=== PATIENT | male | born 1945 ===

== ENCOUNTER 2017-03-18 10:22 | Inpatient (IN) | payer MEDICARE ==
[2017-03-18 10:23] VITALS: PULSE 117; BMI 21.7
[2017-03-18] MEDS ORDERED: Sodium Chloride 0.9% 1,000 ML IV ONE (11:07)
[2017-03-18] MEDS: Albuterol-Ipratrop 3 mg / 0.5 (3 ml) UD IH SCH ×2 (11:15→11:39)
[2017-03-18] MEDS ORDERED: Albuterol-Ipratrop 3 mg / 0.5 (3 ml) UD ONE ×2 (11:23→11:32)
[2017-03-18] MEDS ORDERED: Sodium Chloride 0.9% 1,000 ML ONE (11:23)
[2017-03-18 11:45] LABS: ALBUMIN 3.5 g/dL (3.5-5.0)
--- NOTE | 2017-03-18 11:46 | C.PDOC ---
History Of Present Illness 71 y/o male with PMH of CAD, CABG, DM, HTN, PVD, anemia and atrial fibrillation presents to the ED with complaints of productive cough with white sputum x2 weeks with associated nasal congestion and SOB on exertion; symptoms worsening last night. Pt seen by PCP Juani, treated and completed zithromax, he states no improvement. Pt denies chest pain, back pain, fever, chills or any other complaints. Time Seen by Provider: 03/18/17 10:56 Chief Complaint (Nursing): Cough, Cold, Congestion History Per: Patient History/Exam Limitations: no limitations Onset/Duration Of Symptoms: Days Current Symptoms Are (Timing): Still Present Severity: Moderate Reports Recently: Treated By A Physician Recent travel outside of the [place]: No Past Medical History Reviewed: Historical Data, Nursing Documentation, Vital Signs Vital Signs: Last Vital Signs Temp 97.7 F 03/18/17 16:57 Pulse 96 H 03/18/17 16:57 Resp 20 03/18/17 16:57 BP 118/79 03/18/17 16:57 Pulse Ox 89 L 03/18/17 18:48 - Medical History PMH: Atrial Fibrillation, CAD, CHF, Diabetes (type 2), Gall Bladder Disease, HTN , Hypercholesterolemia, Hyperlipidemia, Mitral Valve Prolapse, Peripheral Edema Surgical History: CABG - [facility] Procedures DETACHMENT AT LEFT FOOT, PARTIAL 1ST RAY, OPEN APPROACH (08/29/16) DETACHMENT AT LEFT FOOT, PARTIAL 2ND RAY, OPEN APPROACH (08/29/16) DETACHMENT AT LEFT FOOT, PARTIAL 3RD RAY, OPEN APPROACH (08/29/16) DETACHMENT AT LEFT FOOT, PARTIAL 4TH RAY, OPEN APPROACH (08/29/16) DETACHMENT AT LEFT FOOT, PARTIAL 5TH RAY, OPEN APPROACH (08/29/16) DETACHMENT AT RIGHT FOOT, PARTIAL 1ST RAY, OPEN APPROACH (10/09/16) DETACHMENT AT RIGHT FOOT, PARTIAL 4TH RAY, OPEN APPROACH (10/09/16) DETACHMENT AT RIGHT FOOT, PARTIAL 5TH RAY, OPEN APPROACH (10/09/16) DILATION OF L POPL ART WITH DRUG-ELUT INTRA, PERC APPROACH (08/06/16) DILATION OF LEFT FEMORAL ARTERY, PERCUTANEOUS APPROACH (05/30/16) DILATION OF LEFT PERONEAL ARTERY, PERCUTANEOUS APPROACH (08/06/16) DILATION OF LEFT POPLITEAL ARTERY, PERCUTANEOUS APPROACH (05/30/16) DILATION OF R FEM ART USING DRUG BLLN, PERC APPROACH (08/29/16) DILATION OF R POPL ART USING DRUG BLLN, PERC APPROACH (08/29/16) EXTIRPATION OF MATTER FROM L POPL ART, PERC APPROACH (08/06/16) EXTIRPATION OF MATTER FROM R FEM ART, PERC APPROACH (08/06/16) EXTIRPATION OF MATTER FROM R POPL ART, PERC APPROACH (08/06/16) INTRODUCTION OF OTHER THERAPEUTIC SUBSTANCE INTO UP GI, ENDO (06/18/16) PLAIN RADIOGRAPHY OF AORTA, BI LE ART USING L OSM CONTRAST (08/06/16) REPAIR DUODENUM, ENDO (06/18/16) CONGREGATION OF CARDIAC RHYTHM, SINGLE (10/09/16) TRANSFUSE NONAUT RED BLOOD CELLS IN PERIPH VEIN, PERC (06/18/16) ULTRASONOGRAPHY OF RIGHT AND LEFT HEART, TRANSESOPHAGEAL (10/09/16) Family History: States: Unknown Family Hx - Social History Hx Tobacco Use: Yes (former smoker) Hx Alcohol Use: No Hx Substance Use: No - Immunization History Hx Tetanus Toxoid Vaccination: No Hx Influenza Vaccination: No Hx Pneumococcal Vaccination: No Review Of Systems Constitutional: Negative for: Fever, Chills ENT: Positive for: Nose Congestion Cardiovascular: Negative for: Chest Pain Respiratory: Positive for: Cough, Shortness of Breath, Sputum Musculoskeletal: Negative for: Back Pain Physical Exam - Physical Exam Appears: Non-toxic, No Acute Distress Skin: Warm, Dry, No Rash Head: Atraumatic, Normacephalic Eye(s): bilateral: Normal Inspection Ear(s): Bilateral: Normal Nose: Normal Oral Mucosa: Moist Throat: Normal, No Erythema Neck: Normal, Normal ROM, Supple Chest: Symmetrical Cardiovascular: Rhythm Irregular (tachycardic), No Murmur Respiratory: No Accessory Muscle Use, Rales (bases), Rhonchi (scattered), Wheezing (scattered) Gastrointestinal/Abdominal: Normal Exam, Soft, No Tenderness Extremity: No Pedal Edema, Other (bilateral toe amputations) Pulses: Left Radial: Normal, Right Radial: Normal Neurological/Psych: Oriented x3, Normal Speech, Normal Cognition ED Course And Treatment - Laboratory Results Result Diagrams: 03/18/17 12:19 03/18/17 11:29 O2 Sat by Pulse Oximetry: 89 (room air) Pulse Ox Interpretation: Abnormal - Other Rad CXR X-Ray: Viewed By Me, Read By Radiologist Interpretation: HISTORY: SOB. COMPARISON: No prior. FINDINGS: LUNGS: Diffuse increased interstitial lung markings throughout both lungs suggestive for moderate to severe venous congestion and or infiltrate. Right hilar prominence. Elevated right hemidiaphragm. Patchy increased markings at the left lung base. PLEURA: As above. CARDIOVASCULAR: Status post median sternotomy. Cardiomegaly. Calcification at the aortic knob. OSSEOUS STRUCTURES: Degenerative changes in the spine and shoulders. VISUALIZED UPPER ABDOMEN: Normal. OTHER FINDINGS: None. IMPRESSION: Diffuse increased interstitial lung markings throughout both lungs suggestive for moderate to severe venous congestion and or infiltrate. Right hilar prominence. Elevated right hemidiaphragm. Patchy increased markings at the left lung base. Progress - Interventions Interventions:: Observation, Intravenous fluid, Oxygen - Medications Administered Intravenous: Corticosteroid, Diuretic - Data Reviewed Data Reviewed: Lab, Diagnostic imaging, EKG, Old records - Patient Status Patient status: Unchanged - Continuity of Care Discussed patient case with:: Family-HIPPA compliant, Covering for PMD - Patient Plan Patient Plan: Admission, Telemetry - Notes: Notes:: Labs reviewed showing slight leukocytosis and elevated glucose, BNP and renal insufficiency. EKG shows Afib at [address]-T changes CXR shows diffuse increased interstitial lung markings throughout both lungs suggestive for moderate to severe venous congestion and or infiltrate. Right hilar prominence. Elevated right hemidiaphragm. Patchy increased markings at the left lung base. Patient showed no improvement of symptoms, remain unchanged. He reported feeling slightly better however based on presentation and diagnostic findings recommend admission. Contacted hospitalist Dr Leonard who admits for Dr Tineo to discuss case and she agrees Medical Decision Making Medical Decision Making: Plan: * EKG * CXR * labs, UA * duoneb, solumedrol * IV fluids Disposition - Disposition Disposition: HOSPITALIZED Disposition Time: 12:50 Condition: FAIR - POA Present On Arrival: None, Poor Glycemic Control - Clinical Impression Clinical Impression: CHF (congestive heart failure) - PA / ROTARY BAR OPERATOR / Resident Statement MD/DO has reviewed & agrees with the documentation as recorded. - Scribe Statement The provider has reviewed the documentation as recorded by the Antoinette Carrasco All medical record entries made by the Megaibyuly were at my direction and personally dictated by me. I have reviewed the chart and agree that the record accurately reflects my personal performance of the history, physical exam, medical decision making, and the department course for this patient. I have also personally directed, reviewed, and agree with the discharge instructions and disposition. Decision To Admit - Pt Status Changed To: Hospital Disposition Of: Inpatient - Admit Certification Admit to Inpatient:: After my assessment, the patient will require hospitalization for at least two midnights. This is because of the severity of symptoms shown, intensity of services needed, and/or the medical risk in this patient being treated as an outpatient. - InPatient: Physician Admission Certification: I certify that this patient requires 2 or more midnights of care for the following reason:: Patient with acute CHF, no improvement with treatment during ED evaluation. Patient will likely detioriate and decompensate without inpatient care. - . Bed Request Type: Telemetry Admitting Physician: Noemí Leonard Patient Diagnosis: CHF (congestive heart failure)
[2017-03-18 11:47] LABS: GFR AFRICAN-AMERICAN 48; GFR NON-AFRICAN AMERICAN 40
[2017-03-18 11:48] LABS: ALB/GLOB RATIO 0.8 (1.0-2.1); AST/SGOT 19 U/L (17-59); BLOOD UREA NITROGEN 55 mg/dL (9-20); CALCIUM 9.3 mg/dl (8.6-10.4)
[2017-03-18 12:09] LABS: ALT/SGPT < 6 U/L (21-72)
--- NOTE | 2017-03-18 12:14 | RAD ---
HISTORY: SOB COMPARISON: No prior. FINDINGS: LUNGS: Diffuse increased interstitial lung markings throughout both lungs suggestive for moderate to severe venous congestion and or infiltrate. Right hilar prominence. Elevated right hemidiaphragm. Patchy increased markings at the left lung base. PLEURA: As above. CARDIOVASCULAR: Status post median sternotomy. Cardiomegaly. Calcification at the aortic knob. OSSEOUS STRUCTURES: Degenerative changes in the spine and shoulders. VISUALIZED UPPER ABDOMEN: Normal. OTHER FINDINGS: None. IMPRESSION: Diffuse increased interstitial lung markings throughout both lungs suggestive for moderate to severe venous congestion and or infiltrate. Right hilar prominence. Elevated right hemidiaphragm. Patchy increased markings at the left lung base.
[2017-03-18 12:17] LABS: B-TYPE NATRIURETIC PEPTIDE 50700 pg/mL (0-900)
[2017-03-18 12:24] LABS: BASO # 0.1 K/uL (0.0-0.2); BASO % 0.8 % (0.0-2.0); EOS # 0.2 K/uL (0.0-0.7); EOS % 1.9 % (0.0-4.0); HEMOGLOBIN 8.3 g/dL (12.0-18.0); LYMPH % 17.9 % (20.0-40.0); MEAN CORPUSCULAR HEMOGLOBIN 26.5 pg (27.0-31.0); MEAN CORPUSCULAR HGB CONC 30.9 g/dL (33.0-37.0); MEAN PLATELET VOLUME 8.1 fL (7.2-11.7); MONO # 0.9 K/uL (0.0-0.8); MONO % 8.3 % (0.0-10.0); NEUT # 7.8 K/uL (1.8-7.0); NEUT % 71.1 % (50.0-75.0); RBC 3.13 Mil/uL (4.40-5.90); RED CELL DISTRIBUTION WIDTH 18.6 % (11.5-14.5)
[2017-03-18 12:29] LABS: MEAN CELL VOLUME 85.7 fL (80.0-94.0)
--- NOTE | 2017-03-18 17:19 | CP.PCM.HP ---
<Kenji Dawn Kenyon - Last Filed: 03/18/17 21:43> History of Present Illness - History of Present Illness History of Present Illness: 71 M w/ PMHx of CAD, CABG, AFib, DM w/ b/l toe amp, PVD, HTN, chronic anemia presents to ED complaining of SOB. SOB has been present for past few months but has worsened in the last 10 days. Associated sx include persistent cough with minimal clear phlegm. Minimal activity such as getting out of a chair make sxs worse, sitting still improve sxs. Sxs are worse at night when patient is lying flat to go to sleep. Cough interrupts his sleep at night. He denies chest pain, abd pain, N/V/D/C. Daughter advised patient to come to ED a few days ago but patient refused at that time. PMHx: CAD, AFib, DM, HTN, PVD, Chronic Anemia PSHx: CABG 2009, Right foot toes amputation 2015, Left foot toes amputation 2016 Allergies: NKA Meds: Janumet 50mg-1000mg cilostazol 100mg bid losartan 25mg once daily metoprolol 25mg once daily xarelto 20mg bid amiodarone 200mg once daily pantoprazole 40mg once daily ferrus sulfate 325mg bid metoclopramide 10mg metronidazole 500mg for diarrhea (holding) furosomide 40mg mupirocin 2% topical advair FH: Patient was not able to recall any past family hx Social: Never smoked, never drank, denies illicit drug use. Lives with daughter. Retired, former [employer] consultant. Present on Admission - Present on Admission Any Indicators Present on Admission: Yes History of DVT/PE: No History of Uncontrolled Diabetes: Yes Urinary Catheter: No Decubitus Ulcer Present: No History Surgical Site Infection Following: CABG - Mediastinitis (CABG 2006. ), Orthopedic Procedures (Bilateral toe amputation) Review of Systems - Constitutional Constitutional: Fatigue, Lethargy, Weight Gain. absent: Chills, Fever, Headache , Night Sweats - EENT Eyes: absent: As Per HPI, Blind Spots, Blurred Vision, Change in Vision, Decreased Night Vision, Diplopia, Discharge, Dry Eye, Exophthalmos, Floaters, Irritation, Itchy Eyes, Loss of Peripheral Vision, Pain, Photophobia, Requires Corrective Lenses, Sees Flashes, Spots in Vision, Tunnel Vision, Other Visual Disturbances, Loss of Vision, Other Ears: absent: As Per HPI, Decreased Hearing, Ear Discharge, Ear Pain, Tinnitus, Abnormal Hearing, Disequilibrium, Dizziness, Other Nose/Mouth/Throat: absent: As Per HPI, Epistaxis, Nasal Congestion, Nasal Discharge, Nasal Obstruction, Nasal Trauma, Nose Pain, Post Nasal Drip, Sinus Pain, Sinus Pressure, Bleeding Gums, Change in Voice, Dental Pain, Dry Mouth, Dysphagia, Halitosis, Hoarsness, Lip Swelling, Mouth Lesions, Mouth Pain, Odynophagia, Sore Throat, Throat Swelling, Tongue Swelling, Facial Pain, Neck Pain, Neck Mass, Other - Cardiovascular Cardiovascular: Dyspnea, Dyspnea on Exertion, Edema, Leg Edema, Paroxysmal Nocturnal Dyspnea. absent: Chest Pain Additional comments: Murmur 3/6 heard best at right sternal border JVD - Respiratory Respiratory: Cough, Dyspnea, Dyspnea on Exertion, Wheezing. absent: Hemoptysis - Gastrointestinal Gastrointestinal: absent: Abdominal Pain, Change in Bowel Habits, Constipation, Diarrhea, Dysphagia, Vomiting - Genitourinary Genitourinary: Dysuria. absent: Hematuria, Urinary Frequency - Reproductive: Male Additional comments: Scrotum was tender to palpation - Musculoskeletal Musculoskeletal: absent: As Per HPI, Abnormal Gait, Arthralgias, Atrophy, Back Pain, Deformity, Joint Swelling, Limited Range of Motion, Loss of Height, Muscle Cramps, Muscle Weakness, Myalgias, Neck Pain, Numbness, Radiating Pain into Limb, Stiffness, Tingling, Other - Integumentary Integumentary: Dry Skin, Swelling, Jaundice - Neurological Neurological: absent: As Per HPI, Abnormal Gait, Abnormal Hearing, Abnormal Movements, Abnormal Speech, Behavioral Changes, Burning Sensations, Confusion, Convulsions, Disequilibrium, Dizziness, Numbness, Focal Weakness, Frequent Falls , Headaches, Lack of Coordination, Loss of Vision, Memory Loss, Paresthesias, Radicular Pain, Restless Legs, Sensory Deficit, Syncope, Tingling, Tremor, Vertigo, Weakness, Other Visual Disturbances, Other - Psychiatric Psychiatric: absent: As Per HPI, Abnormal Sleep Pattern, Anhedonia, Anxiety, Auditory Hallucinations, Behavioral Changes, Change in Appetite, Change in Libido, Confusion, Depression, Difficulty Concentrating, Hallucinations, Homicidal Ideation, Hopelessness, Irritability, Memory Loss, Mood Swings, Panic Attacks, Paranoia, Suicidal Ideation, Visual Hallucinations, Tactile Hallucinations, Other - Endocrine Endocrine: Fatigue. 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 Alcohol: None Drugs: Denies Home Situation {Lives}: With Family Domestic Violence: Negative - CARDIAC Hx Cardiac Disorders: Yes (CAD, CABG, CHF (EF 30%)) Hx Atrial Fibrillation: Yes Hx Congestive Heart Failure: Yes Hx Hypercholesterolemia: Yes Hx Hypertension: Yes Hx Mitral Valve Prolapse: Yes Hx Peripheral Edema: Yes - PULMONARY Hx Respiratory Disorders: No - NEUROLOGICAL Hx Neurological Disorder: No - HEENT Hx HEENT Problems: No - RENAL Hx Chronic Kidney Disease: No - ENDOCRINE/METABOLIC Hx Diabetes Mellitus Type 2: Yes - HEMATOLOGICAL/ONCOLOGICAL Hx Blood Disorders: No Hx Anemia: Yes - INTEGUMENTARY Hx Dermatological Problems: Yes Hx Cellulitis: Yes Other/Comment: gangrene left foot - MUSCULOSKELETAL/RHEUMATOLOGICAL Hx Falls: No - GASTROINTESTINAL Hx Gall Bladder Disease: Yes - GENITOURINARY/GYNECOLOGICAL Hx Genitourinary Disorders: No Hx Urinary Tract Infection: Yes (Admitted earlier this year for UTI) - PSYCHIATRIC Hx Substance Use: No - SURGICAL HISTORY Hx Surgeries: Yes Hx Amputation: Yes (left foot toes 2017; right foot toes 2016) Hx Coronary Artery Bypass Graft: Yes (2009) - ANESTHESIA Hx Anesthesia: Yes Hx Anesthesia Reactions: No Hx Malignant Hyperthermia: No Meds Allergies/Adverse Reactions: Allergies Allergy/AdvReac Type Severity Reaction Status Date / Time No Known Allergies Allergy Verified 03/18/17 10:39 Physical Exam - Constitutional Appears: Well - Head Exam Head Exam: NORMOCEPHALIC - Eye Exam Eye Exam: EOMI, Normal appearance Pupil Exam: PERRL - ENT Exam ENT Exam: Mucous Membranes Dry - Neck Exam Additional comments: JVD - Respiratory Exam Respiratory Exam: Decreased Breath Sounds, Rhonchi, Wheezes, Respiratory Distress - Cardiovascular Exam Cardiovascular Exam: JVD, Systolic Murmur - GI/Abdominal Exam GI & Abdominal Exam: Distended, Normal Bowel Sounds - Rectal Exam Rectal Exam: Deferred - Exam Exam: Scrotal Swelling - Extremities Exam Extremities exam: Positive for: pedal edema. Negative for: pedal pulses present Additional comments: edema present up to knees b/l - Neurological Exam Neurological exam: Alert, Oriented x3 - Psychiatric Exam Psychiatric exam: Normal Affect, Normal Mood - Skin Skin Exam: Dry Results - Vital Signs Recent Vital Signs: Last Vital Signs Temp 97.7 F 03/18/17 16:57 Pulse 96 H 03/18/17 16:57 Resp 20 03/18/17 16:57 BP 118/79 03/18/17 16:57 Pulse Ox 94 L 03/18/17 16:57 - Labs Result Diagrams: 03/18/17 12:19 03/18/17 11:29 Labs: Laboratory Results - last 24 hr 03/18/17 16:48 POC Glucose (mg/dL) 252 H - EKG Data EKG Interpreted by: ER Physician - Impressions Impression: abnormal ekg Assessment & Plan - Assessment and Plan (Free Text) Assessment: SOB most likely 2/2 CHF Exacerbation b/l LE pitting edema; wheezing and rhonchi on ausc Echo from 10/2016 showed EF of 30%-35%, impaired systolic function Chest-xray showed cardiomegaly, calcification of aotric knob. BNP [id number] Lasix 40mg IVP BID BIPAP ABG ordered CMP, CBC ordered Ins and Outs Peak flow pre/post tx albuterol/ipratropium 3ml INH RQ6 Fluticasone/Salmeterol 1 puff f/u EKG and JENNIFER panel f/u cardiology consult critical care consulted Acute Kidney Injury BUN 55, Creat 1.7 f/u nephro consult Afib Afib previously diagnosed con't home med of Amiodarone 200mg PO daily con't home med of Rivaroxaban 15mg PO daily Open wound on right foot at site of amputation Podiatry consulted Dysuria f/u urinalysis f/u urine culture f/u blood culture PVD Venous duplex scan ordered con't home med of cilostazol 100 mg BID DM random glucose 310 f/u HbA1C Insulin Aspart SC ACHS Gabapentin 100 mg BID consistent carbohydrate Chronic Anemia Hgb 8.3 con't home med of ferrous sulfate 325 mg BID HTN BP in ED 126/83 con't home med of Losartan 25mg Prophylactic Measures Rivaroxaban 15mg for DVT prophylaxis pepcid 20mg for GI prophylaxis <Daniel mAbrocio - Last Filed: 03/19/17 17:41> Results - Vital Signs Recent Vital Signs: Last Vital Signs Temp 97.4 F L 03/19/17 15:35 Pulse 84 03/19/17 15:35 Resp 22 03/19/17 15:35 BP 92/59 L 03/19/17 15:35 Pulse Ox 97 03/19/17 15:35 - Labs Result Diagrams: 03/19/17 09:01 03/19/17 07:05 Labs: Laboratory Results - last 24 hr 03/18/17 03/18/17 03/18/17 19:49 19:49 19:56 WBC RBC Hgb Hct MCV MCH MCHC RDW Plt Count MPV Neut % (Auto) Lymph % (Auto) [place] % (Auto) Eos % (Auto) Baso % (Auto) Neut # Lymph # [place] # Eos # Baso # Sodium Potassium Chloride Carbon Dioxide Anion Gap BUN Creatinine Est GFR ( Amer) Est GFR (Non-Af Amer) POC Glucose (mg/dL) Random Glucose Calcium Phosphorus Magnesium Iron 36 L TIBC 285 % Saturation 14 L Transferrin 211.67 Ferritin Total Bilirubin AST ALT Alkaline Phosphatase Total Creatine Kinase CK-MB (Mass) Troponin I, Quant Total Protein Albumin Globulin Albumin/Globulin Ratio Stool Occult Blood Blood Type Antibody Screen 03/18/17 03/18/17 03/18/17 20:13 21:06 21:49 WBC RBC Hgb Hct MCV MCH MCHC RDW Plt Count MPV Neut % (Auto) Lymph % (Auto) [place] % (Auto) Eos % (Auto) Baso % (Auto) Neut # Lymph # [place] # Eos # Baso # Sodium Potassium Chloride Carbon Dioxide Anion Gap BUN Creatinine Est GFR ( Amer) Est GFR (Non-Af Amer) POC Glucose (mg/dL) 310 H Random Glucose Calcium Phosphorus Magnesium Iron TIBC % Saturation Transferrin Ferritin 48.5 Total Bilirubin AST ALT Alkaline Phosphatase Total Creatine Kinase 44 L CK-MB (Mass) 1.20 Troponin I, Quant 0.0190 Total Protein Albumin Globulin Albumin/Globulin Ratio Stool Occult Blood Blood Type Antibody Screen 03/18/17 03/19/17 03/19/17 23:50 02:21 06:41 WBC RBC Hgb Hct MCV MCH MCHC RDW Plt Count MPV Neut % (Auto) Lymph % (Auto) [place] % (Auto) Eos % (Auto) Baso % (Auto) Neut # Lymph # [place] # Eos # Baso # Sodium Potassium Chloride Carbon Dioxide Anion Gap BUN Creatinine Est GFR ( Amer) Est GFR (Non-Af Amer) POC Glucose (mg/dL) 277 H 247 H Random Glucose Calcium Phosphorus Magnesium Iron TIBC % Saturation Transferrin Ferritin Total Bilirubin AST ALT Alkaline Phosphatase Total Creatine Kinase 35 L CK-MB (Mass) 1.27 Troponin I, Quant 0.0310 Total Protein Albumin Globulin Albumin/Globulin Ratio Stool Occult Blood Blood Type Antibody Screen 03/19/17 03/19/17 03/19/17 07:05 07:05 09:01 WBC 4.5 L D 4.9 RBC 2.59 L 2.64 L Hgb 6.8 L 7.0 L Hct 21.8 L 22.1 L MCV 84.2 83.7 MCH 26.5 L 26.5 L MCHC 31.4 L 31.7 L RDW 18.5 H 18.4 H Plt Count 325 D 321 MPV 8.3 8.2 Neut % (Auto) 83.7 H Lymph % (Auto) 12.6 L [place] % (Auto) 3.6 Eos % (Auto) 0.0 Baso % (Auto) 0.1 Neut # 3.8 Lymph # 0.6 L [place] # 0.2 Eos # 0.0 Baso # 0.0 Sodium 144 Potassium 3.9 Chloride 107 Carbon Dioxide 22 Anion Gap 18 BUN 62 H Creatinine 1.7 H Est GFR ( Amer) 48 Est GFR (Non-Af Amer) 40 POC Glucose (mg/dL) Random Glucose 215 H Calcium 8.7 Phosphorus 4.8 H Magnesium 1.9 Iron TIBC % Saturation Transferrin Ferritin Total Bilirubin 1.1 AST 15 L D ALT 8 L D Alkaline Phosphatase 73 Total Creatine Kinase 33 L CK-MB (Mass) 1.05 Troponin I, Quant 0.0390 Total Protein 6.9 Albumin 3.0 L Globulin 4.0 H Albumin/Globulin Ratio 0.8 L Stool Occult Blood Blood Type Antibody Screen 03/19/17 03/19/17 03/19/17 11:07 11:59 17:18 WBC RBC Hgb Hct MCV MCH MCHC RDW Plt Count MPV Neut % (Auto) Lymph % (Auto) [place] % (Auto) Eos % (Auto) Baso % (Auto) Neut # Lymph # [place] # Eos # Baso # Sodium Potassium Chloride Carbon Dioxide Anion Gap BUN Creatinine Est GFR ( Amer) Est GFR (Non-Af Amer) POC Glucose (mg/dL) 276 H Random Glucose Calcium Phosphorus Magnesium Iron TIBC % Saturation Transferrin Ferritin Total Bilirubin AST ALT Alkaline Phosphatase Total Creatine Kinase CK-MB (Mass) Troponin I, Quant Total Protein Albumin Globulin Albumin/Globulin Ratio Stool Occult Blood Positive H Blood Type O POSITIVE Antibody Screen Negative Attending/Attestation - Attestation I have personally seen and examined this patient.: Yes I have fully participated in the care of the patient.: Yes I have reviewed all pertinent clinical information: Yes Notes (Text): 03/19/17 17:40 Patient was seen and examined at bedside with the resident I discussed the plan of care with the resident I agree with the above history and physical and assessment/plan by the resident.
[2017-03-18] MEDS: Albuterol-Ipratrop 3 mg / 0.5 (3 ml) UD INH SCH (19:52)
[2017-03-18 20:13] LABS: IRON 36 ug/dL (49-181)
[2017-03-18 20:23] LABS: TOTAL IRON BINDING CAPACITY 285 ug/dL (250-450)
[2017-03-18] MEDS: Cilostazol 100 mg Tab UD PO SCH (21:05)
[2017-03-18 22:05] LABS: CK-MB 1.2 ng/mL (0.0-3.38)
[2017-03-18] MEDS: (Novolog) Insulin Aspart, Recombinant 100 u/ml 10 ml vial SC SCH (23:09)
[2017-03-19 01:04] LABS: CK-MB 1.27 ng/mL (0.0-3.38)
[2017-03-19] MEDS: Albuterol-Ipratrop 3 mg / 0.5 (3 ml) UD INH SCH ×4 (02:30→21:37)
[2017-03-19 07:18] LABS: BASO % 0.1 % (0.0-2.0); HEMOGLOBIN 6.8 g/dL (12.0-18.0); LYMPH # 0.6 K/uL (1.0-4.3); MEAN PLATELET VOLUME 8.3 fL (7.2-11.7); MONO # 0.2 K/uL (0.0-0.8); NRBC % 0.1 % (0.0-2.0)
[2017-03-19 07:27] LABS: ALB/GLOB RATIO 0.8 (1.0-2.1); CALCIUM 8.7 mg/dl (8.6-10.4); MAGNESIUM 1.9 mg/dL (1.6-2.3)
[2017-03-19 07:31] LABS: LYMPH % 12.6 % (20.0-40.0); MEAN CELL VOLUME 84.2 fL (80.0-94.0); MEAN CORPUSCULAR HEMOGLOBIN 26.5 pg (27.0-31.0); MEAN CORPUSCULAR HGB CONC 31.4 g/dL (33.0-37.0); MONO % 3.6 % (0.0-10.0); NEUT # 3.8 K/uL (1.8-7.0); NEUT % 83.7 % (50.0-75.0); RBC 2.59 Mil/uL (4.40-5.90); RED CELL DISTRIBUTION WIDTH 18.5 % (11.5-14.5)
[2017-03-19 07:34] LABS: CK-MB 1.05 ng/mL (0.0-3.38)
[2017-03-19 07:36] LABS: WHITE BLOOD COUNT 4.5 K/uL (4.8-10.8)
--- NOTE | 2017-03-19 08:33 | CP.PCM.CON ---
History of Present Illness - History of Present Illness History of Present Illness: patient seen/examined. respiratory distress on BiPAP. Hgb 6.8. recommend transfusion Past Patient History - Infectious Disease Hx of Infectious Diseases: None - Past Medical History & Family History Past Medical History?: Yes - Past Social History Smoking Status: Former Smoker - CARDIAC Hx Cardiac Disorders: Yes (CAD, CABG, CHF (EF 30%)) Hx Atrial Fibrillation: Yes Hx Congestive Heart Failure: Yes Hx Hypercholesterolemia: Yes Hx Hypertension: Yes Hx Mitral Valve Prolapse: Yes Hx Peripheral Edema: Yes - PULMONARY Hx Respiratory Disorders: No - NEUROLOGICAL Hx Neurological Disorder: No - HEENT Hx HEENT Problems: No - RENAL Hx Chronic Kidney Disease: No - ENDOCRINE/METABOLIC Hx Diabetes Mellitus Type 2: Yes - HEMATOLOGICAL/ONCOLOGICAL Hx Blood Disorders: No Hx Anemia: Yes - INTEGUMENTARY Hx Dermatological Problems: Yes Hx Cellulitis: Yes Other/Comment: gangrene left foot - MUSCULOSKELETAL/RHEUMATOLOGICAL Hx Falls: No - GASTROINTESTINAL Hx Gall Bladder Disease: Yes - GENITOURINARY/GYNECOLOGICAL Hx Genitourinary Disorders: No Hx Urinary Tract Infection: Yes (Admitted earlier this year for UTI) - PSYCHIATRIC Hx Substance Use: No - SURGICAL HISTORY Hx Surgeries: Yes Hx Amputation: Yes (left foot toes 2017; right foot toes 2015) Hx Coronary Artery Bypass Graft: Yes (2009) - ANESTHESIA Hx Anesthesia: Yes Hx Anesthesia Reactions: No Hx Malignant Hyperthermia: No Meds Allergies/Adverse Reactions: Allergies Allergy/AdvReac Type Severity Reaction Status Date / Time No Known Allergies Allergy Verified 03/18/17 10:39 - Medications Medications: Current Medications Albuterol/Ipratropium (Duoneb 3 Mg/0.5 Mg (3 Ml) Ud) 3 ml INH RQ6 [facility] Last Admin: 03/19/17 07:39 Dose: 3 ml Amiodarone HCl (Cordarone) 200 mg PO DAILY [facility] Cilostazol (Pletal) 100 mg PO BID [facility] Last Admin: 03/18/17 21:05 Dose: 100 mg Famotidine (Pepcid) 20 mg PO DAILY [facility] Ferrous Sulfate (Feosol) 325 mg PO BID [facility] Last Admin: 03/18/17 21:05 Dose: 325 mg Furosemide (Lasix) 40 mg IVP BID [facility] Last Admin: 03/18/17 21:05 Dose: 40 mg Gabapentin (Neurontin) 100 mg PO BID [facility] Last Admin: 03/18/17 21:05 Dose: 100 mg Insulin Aspart (Novolog) 0 unit SC ACHS [facility] PRN Reason: Protocol Last Admin: 03/18/17 23:09 Dose: 3 unit Losartan Potassium (Cozaar) 25 mg PO DAILY [facility] Metoprolol Succinate (Toprol Xl) 25 mg PO DAILY [facility] Mupirocin (Bactroban Ointment) 0 gm TOP BID [facility] Last Admin: 03/18/17 23:08 Dose: 1 applic Pantoprazole Sodium (Protonix Ec Tab) 40 mg PO DAILY [facility] Rivaroxaban (Xarelto) 15 mg PO DAILY [facility] Fluticasone/Salmeterol (Advair Diskus 100/50) 1 puff IH RQD [facility] Results - Vital Signs Recent Vital Signs: Last Vital Signs Temp 98.8 F 03/18/17 23:35 Pulse 97 H 03/19/17 00:55 Resp 20 03/18/17 23:35 BP 114/77 03/18/17 23:35 Pulse Ox 96 03/18/17 23:35 - Labs Result Diagrams: 03/19/17 07:05 03/19/17 07:05 Labs: Laboratory Results - last 24 hr 03/18/17 03/18/17 03/18/17 16:48 19:49 19:49 WBC RBC Hgb Hct MCV MCH MCHC RDW Plt Count MPV Neut % (Auto) Lymph % (Auto) [place] % (Auto) Eos % (Auto) Baso % (Auto) Neut # Lymph # [place] # Eos # Baso # Sodium Potassium Chloride Carbon Dioxide Anion Gap BUN Creatinine Est GFR ( Amer) Est GFR (Non-Af Amer) POC Glucose (mg/dL) 252 H Random Glucose Calcium Phosphorus Magnesium Iron 36 L TIBC 285 % Saturation Transferrin 211.67 Ferritin Total Bilirubin AST ALT Alkaline Phosphatase Total Creatine Kinase CK-MB (Mass) Troponin I, Quant Total Protein Albumin Globulin Albumin/Globulin Ratio 03/18/17 03/18/17 03/18/17 19:56 20:13 21:06 WBC RBC Hgb Hct MCV MCH MCHC RDW Plt Count MPV Neut % (Auto) Lymph % (Auto) [place] % (Auto) Eos % (Auto) Baso % (Auto) Neut # Lymph # [place] # Eos # Baso # Sodium Potassium Chloride Carbon Dioxide Anion Gap BUN Creatinine Est GFR ( Amer) Est GFR (Non-Af Amer) POC Glucose (mg/dL) Random Glucose Calcium Phosphorus Magnesium Iron TIBC % Saturation 14 L Transferrin Ferritin 48.5 Total Bilirubin AST ALT Alkaline Phosphatase Total Creatine Kinase 44 L CK-MB (Mass) 1.20 Troponin I, Quant 0.0190 Total Protein Albumin Globulin Albumin/Globulin Ratio 03/18/17 03/18/17 03/19/17 21:49 23:50 02:21 WBC RBC Hgb Hct MCV MCH MCHC RDW Plt Count MPV Neut % (Auto) Lymph % (Auto) [place] % (Auto) Eos % (Auto) Baso % (Auto) Neut # Lymph # [place] # Eos # Baso # Sodium Potassium Chloride Carbon Dioxide Anion Gap BUN Creatinine Est GFR ( Amer) Est GFR (Non-Af Amer) POC Glucose (mg/dL) 310 H 277 H Random Glucose Calcium Phosphorus Magnesium Iron TIBC % Saturation Transferrin Ferritin Total Bilirubin AST ALT Alkaline Phosphatase Total Creatine Kinase 35 L CK-MB (Mass) 1.27 Troponin I, Quant 0.0310 Total Protein Albumin Globulin Albumin/Globulin Ratio 03/19/17 03/19/17 03/19/17 06:41 07:05 07:05 WBC 4.5 L D RBC 2.59 L Hgb 6.8 L Hct 21.8 L MCV 84.2 MCH 26.5 L MCHC 31.4 L RDW 18.5 H Plt Count 325 D MPV 8.3 Neut % (Auto) 83.7 H Lymph % (Auto) 12.6 L [place] % (Auto) 3.6 Eos % (Auto) 0.0 Baso % (Auto) 0.1 Neut # 3.8 Lymph # 0.6 L [place] # 0.2 Eos # 0.0 Baso # 0.0 Sodium 144 Potassium 3.9 Chloride 107 Carbon Dioxide 22 Anion Gap 18 BUN 62 H Creatinine 1.7 H Est GFR ( Amer) 48 Est GFR (Non-Af Amer) 40 POC Glucose (mg/dL) 247 H Random Glucose 215 H Calcium 8.7 Phosphorus 4.8 H Magnesium 1.9 Iron TIBC % Saturation Transferrin Ferritin Total Bilirubin 1.1 AST 15 L D ALT 8 L D Alkaline Phosphatase 73 Total Creatine Kinase 33 L CK-MB (Mass) 1.05 Troponin I, Quant 0.0390 Total Protein 6.9 Albumin 3.0 L Globulin 4.0 H Albumin/Globulin Ratio 0.8 L
--- NOTE | 2017-03-19 08:34 | CP.PCM.CON ---
History of Present Illness - History of Present Illness History of Present Illness: I was asked to evaluate patient by Dr Ambrocio. Patient is a 71 year old male with PMH ischemic cardiomyoapthy, CAD, , atrial fibrillation, PAD who presents with weakness and bleeding. The patient has noted wekness and fatigue. he was found to have hgb 6.6. Th patient denies chest pain or dyspnea t this time. Review of Systems - Constitutional Constitutional: absent: As Per HPI, Anorexia, Chills, Daytime Sleepiness, Excessive Sweating, Fatigue, Fever, Frequent Falls, Headache, Increased Appetite , Lethargy, Malaise, Night Sweats, Snoring, Sleep Apnea, Weight Gain, Weight Loss, Weakness, Other - EENT Eyes: absent: As Per HPI, Blind Spots, Blurred Vision, Change in Vision, Decreased Night Vision, Diplopia, Discharge, Dry Eye, Exophthalmos, Floaters, Irritation, Itchy Eyes, Loss of Peripheral Vision, Pain, Photophobia, Requires Corrective Lenses, Sees Flashes, Spots in Vision, Tunnel Vision, Other Visual Disturbances, Loss of Vision, Other Ears: absent: As Per HPI, Decreased Hearing, Ear Discharge, Ear Pain, Tinnitus, Abnormal Hearing, Disequilibrium, Dizziness, Other Nose/Mouth/Throat: absent: As Per HPI, Epistaxis, Nasal Congestion, Nasal Discharge, Nasal Obstruction, Nasal Trauma, Nose Pain, Post Nasal Drip, Sinus Pain, Sinus Pressure, Bleeding Gums, Change in Voice, Dental Pain, Dry Mouth, Dysphagia, Halitosis, Hoarsness, Lip Swelling, Mouth Lesions, Mouth Pain, Odynophagia, Sore Throat, Throat Swelling, Tongue Swelling, Facial Pain, Neck Pain, Neck Mass, Other - Cardiovascular Cardiovascular: absent: As Per HPI, Acrocyanosis, Chest Pain, Chest Pain at Rest , Chest Pain with Activity, Claudication, Diaphoresis, Dyspnea, Dyspnea on Exertion, Edema, Irregular Heart Rhythm, Pain Radiating to Arm/Neck/Jaw, Leg Edema, Leg Ulcers, Lightheadedness, Orthopnea, Palpitations, Paroxysmal Nocturnal Dyspnea, Pedal Edema, Radiating Pain, Rapid Heart Rate, Slow Heart Rate, Syncope, Other - Respiratory Respiratory: Dyspnea - Gastrointestinal Gastrointestinal: absent: As Per HPI, Abdominal Pain, Belching, Bloating, Change in Bowel Habits, Change in Stool Character, Coffee Ground Emesis, Constipation, Cramping, Diarrhea, Dyspepsia, Dysphagia, Early Satiety, Excessive Flatus, Fecal Incontinence, Heartburn, Hematemesis, Hematochezia, Loose Stools, Melena, Nausea, Odynophagia, Temesmus, Vomiting, Other - Genitourinary Genitourinary: absent: As Per HPI, Change in Urinary Stream, Difficulty Urinating, Dysuria, Flank Pain, Hematuria, Pyuria, Nocturia, Urinary Incontinence, Urinary Frequency, Urinary Hesitance, Urinary Urgency, Voiding Freq/Small Amts, Freq UTI, Hx Renal/Bladder Calculi, Hx /Renal Surgery, Bladder Distension, Other - Musculoskeletal Musculoskeletal: Muscle Weakness - Integumentary Integumentary: absent: As Per HPI, Acne, Alopecia, Bleeding Lesions, Change in Hair, Change in Nails, Change in Pigmentation, Changing Lesions, Dry Skin, Erythema, Furuncle, Hirsutism, Lesions, New Lesions, Non-Healing Lesions, Photosensitivity, Pruritus, Rash, Skin Pain, Skin Ulcer, Sores, Striae, Swelling , Unusual Bruising, Wounds, Jaundice, Other - Neurological Neurological: absent: As Per HPI, Abnormal Gait, Abnormal Hearing, Abnormal Movements, Abnormal Speech, Behavioral Changes, Burning Sensations, Confusion, Convulsions, Disequilibrium, Dizziness, Numbness, Focal Weakness, Frequent Falls , Headaches, Lack of Coordination, Loss of Vision, Memory Loss, Paresthesias, Radicular Pain, Restless Legs, Sensory Deficit, Syncope, Tingling, Tremor, Vertigo, Weakness, Other Visual Disturbances, Other - Psychiatric Psychiatric: absent: As Per HPI, Abnormal Sleep Pattern, Anhedonia, Anxiety, Auditory Hallucinations, Behavioral Changes, Change in Appetite, Change in Libido, Confusion, Depression, Difficulty Concentrating, Hallucinations, Homicidal Ideation, Hopelessness, Irritability, Memory Loss, Mood Swings, Panic Attacks, Paranoia, Suicidal Ideation, Visual Hallucinations, Tactile Hallucinations, Other - Endocrine Endocrine: absent: As Per HPI, Change in Body Appearance, Change in Libido, Cold Intolorance, Deepening of Voice, Excessive Sweating, Fatigue, Flushing, Heat Intolorance, Increase in Ring/Shoe/Hat Size, Palpitations, Polydipsia, Polyphagia, Polyuria, Other - Hematologic/Lymphatic Hematologic: absent: As Per HPI, Easy Bleeding, Easy Bruising, Lymphadenopathy, Other Past Patient History - Infectious Disease Hx of Infectious Diseases: None - Past Medical History & Family History Past Medical History?: Yes - Past Social History Smoking Status: Former Smoker - CARDIAC Hx Cardiac Disorders: Yes (CAD, CABG, CHF (EF 30%)) Hx Atrial Fibrillation: Yes Hx Congestive Heart Failure: Yes Hx Hypercholesterolemia: Yes Hx Hypertension: Yes Hx Mitral Valve Prolapse: Yes Hx Peripheral Edema: Yes - PULMONARY Hx Respiratory Disorders: No - NEUROLOGICAL Hx Neurological Disorder: No - HEENT Hx HEENT Problems: No - RENAL Hx Chronic Kidney Disease: No - ENDOCRINE/METABOLIC Hx Diabetes Mellitus Type 2: Yes - HEMATOLOGICAL/ONCOLOGICAL Hx Blood Disorders: No Hx Anemia: Yes - INTEGUMENTARY Hx Dermatological Problems: Yes Hx Cellulitis: Yes Other/Comment: gangrene left foot - MUSCULOSKELETAL/RHEUMATOLOGICAL Hx Falls: No - GASTROINTESTINAL Hx Gall Bladder Disease: Yes - GENITOURINARY/GYNECOLOGICAL Hx Genitourinary Disorders: No Hx Urinary Tract Infection: Yes (Admitted earlier this year for UTI) - PSYCHIATRIC Hx Substance Use: No - SURGICAL HISTORY Hx Surgeries: Yes Hx Amputation: Yes (left foot toes 2016; right foot toes 2015) Hx Coronary Artery Bypass Graft: Yes (2009) - ANESTHESIA Hx Anesthesia: Yes Hx Anesthesia Reactions: No Hx Malignant Hyperthermia: No Meds Allergies/Adverse Reactions: Allergies Allergy/AdvReac Type Severity Reaction Status Date / Time No Known Allergies Allergy Verified 03/18/17 10:39 - Medications Medications: Current Medications Albuterol/Ipratropium (Duoneb 3 Mg/0.5 Mg (3 Ml) Ud) 3 ml INH RQ6 [facility] Last Admin: 03/19/17 07:39 Dose: 3 ml Amiodarone HCl (Cordarone) 200 mg PO DAILY [facility] Cilostazol (Pletal) 100 mg PO BID [facility] Last Admin: 03/18/17 21:05 Dose: 100 mg Famotidine (Pepcid) 20 mg PO DAILY [facility] Ferrous Sulfate (Feosol) 325 mg PO BID [facility] Last Admin: 03/18/17 21:05 Dose: 325 mg Furosemide (Lasix) 40 mg IVP BID [facility] Last Admin: 03/18/17 21:05 Dose: 40 mg Gabapentin (Neurontin) 100 mg PO BID [facility] Last Admin: 03/18/17 21:05 Dose: 100 mg Insulin Aspart (Novolog) 0 unit SC ACHS [facility] PRN Reason: Protocol Last Admin: 03/18/17 23:09 Dose: 3 unit Losartan Potassium (Cozaar) 25 mg PO DAILY [facility] Metoprolol Succinate (Toprol Xl) 25 mg PO DAILY [facility] Mupirocin (Bactroban Ointment) 0 gm TOP BID [facility] Last Admin: 03/18/17 23:08 Dose: 1 applic Pantoprazole Sodium (Protonix Ec Tab) 40 mg PO DAILY [facility] Rivaroxaban (Xarelto) 15 mg PO DAILY [facility] Fluticasone/Salmeterol (Advair Diskus 100/50) 1 puff IH RQD [facility] Physical Exam - Constitutional Appears: Cachectic, Chronically Ill - Head Exam Head Exam: NORMAL INSPECTION - Eye Exam Eye Exam: Normal appearance - ENT Exam ENT Exam: Mucous Membranes Dry - Neck Exam Neck exam: Positive for: Normal Inspection - Respiratory Exam Respiratory Exam: Decreased Breath Sounds - Cardiovascular Exam Cardiovascular Exam: Irregular Rhythm - GI/Abdominal Exam GI & Abdominal Exam: Normal Bowel Sounds - Rectal Exam Rectal Exam: Deferred - Extremities Exam Extremities exam: Positive for: pedal edema - Back Exam Back exam: NORMAL INSPECTION - Neurological Exam Neurological exam: Alert, Oriented x3 - Psychiatric Exam Psychiatric exam: Normal Affect - Skin Skin Exam: Normal Color Results - Vital Signs Recent Vital Signs: Last Vital Signs Temp 98.8 F 03/18/17 23:35 Pulse 97 H 03/19/17 00:55 Resp 20 03/18/17 23:35 BP 114/77 03/18/17 23:35 Pulse Ox 96 03/18/17 23:35 - Labs Result Diagrams: 03/25/17 06:16 03/25/17 06:16 Labs: Laboratory Results - last 24 hr 03/18/17 03/18/17 03/18/17 16:48 19:49 19:49 WBC RBC Hgb Hct MCV MCH MCHC RDW Plt Count MPV Neut % (Auto) Lymph % (Auto) [place] % (Auto) Eos % (Auto) Baso % (Auto) Neut # Lymph # [place] # Eos # Baso # Sodium Potassium Chloride Carbon Dioxide Anion Gap BUN Creatinine Est GFR ( Amer) Est GFR (Non-Af Amer) POC Glucose (mg/dL) 252 H Random Glucose Calcium Phosphorus Magnesium Iron 36 L TIBC 285 % Saturation Transferrin 211.67 Ferritin Total Bilirubin AST ALT Alkaline Phosphatase Total Creatine Kinase CK-MB (Mass) Troponin I, Quant Total Protein Albumin Globulin Albumin/Globulin Ratio 03/18/17 03/18/17 03/18/17 19:56 20:13 21:06 WBC RBC Hgb Hct MCV MCH MCHC RDW Plt Count MPV Neut % (Auto) Lymph % (Auto) [place] % (Auto) Eos % (Auto) Baso % (Auto) Neut # Lymph # [place] # Eos # Baso # Sodium Potassium Chloride Carbon Dioxide Anion Gap BUN Creatinine Est GFR ( Amer) Est GFR (Non-Af Amer) POC Glucose (mg/dL) Random Glucose Calcium Phosphorus Magnesium Iron TIBC % Saturation 14 L Transferrin Ferritin 48.5 Total Bilirubin AST ALT Alkaline Phosphatase Total Creatine Kinase 44 L CK-MB (Mass) 1.20 Troponin I, Quant 0.0190 Total Protein Albumin Globulin Albumin/Globulin Ratio 03/18/17 03/18/17 03/19/17 21:49 23:50 02:21 WBC RBC Hgb Hct MCV MCH MCHC RDW Plt Count MPV Neut % (Auto) Lymph % (Auto) [place] % (Auto) Eos % (Auto) Baso % (Auto) Neut # Lymph # [place] # Eos # Baso # Sodium Potassium Chloride Carbon Dioxide Anion Gap BUN Creatinine Est GFR ( Amer) Est GFR (Non-Af Amer) POC Glucose (mg/dL) 310 H 277 H Random Glucose Calcium Phosphorus Magnesium Iron TIBC % Saturation Transferrin Ferritin Total Bilirubin AST ALT Alkaline Phosphatase Total Creatine Kinase 35 L CK-MB (Mass) 1.27 Troponin I, Quant 0.0310 Total Protein Albumin Globulin Albumin/Globulin Ratio 03/19/17 03/19/17 03/19/17 06:41 07:05 07:05 WBC 4.5 L D RBC 2.59 L Hgb 6.8 L Hct 21.8 L MCV 84.2 MCH 26.5 L MCHC 31.4 L RDW 18.5 H Plt Count 325 D MPV 8.3 Neut % (Auto) 83.7 H Lymph % (Auto) 12.6 L [place] % (Auto) 3.6 Eos % (Auto) 0.0 Baso % (Auto) 0.1 Neut # 3.8 Lymph # 0.6 L [place] # 0.2 Eos # 0.0 Baso # 0.0 Sodium 144 Potassium 3.9 Chloride 107 Carbon Dioxide 22 Anion Gap 18 BUN 62 H Creatinine 1.7 H Est GFR ( Amer) 48 Est GFR (Non-Af Amer) 40 POC Glucose (mg/dL) 247 H Random Glucose 215 H Calcium 8.7 Phosphorus 4.8 H Magnesium 1.9 Iron TIBC % Saturation Transferrin Ferritin Total Bilirubin 1.1 AST 15 L D ALT 8 L D Alkaline Phosphatase 73 Total Creatine Kinase 33 L CK-MB (Mass) 1.05 Troponin I, Quant 0.0390 Total Protein 6.9 Albumin 3.0 L Globulin 4.0 H Albumin/Globulin Ratio 0.8 L - EKG Data EKG Interpreted by: Myself Assessment & Plan (1) CHF (congestive heart failure) Assessment and Plan: will monitor fluid status. appears hypervolemic. Status: Chronic (2) A-fib Assessment and Plan: rate control Status: Acute (3) Aortic stenosis Assessment and Plan: has known , hwoever patient is not an ideal candidate for surgery. Status: Acute (4) Anemia Assessment and Plan: alonzo need transfusion Status: Chronic
[2017-03-19] MEDS: (Novolog) Insulin Aspart, Recombinant 100 u/ml 10 ml vial SC SCH ×4 (08:45→22:30)
[2017-03-19 09:18] LABS: MEAN CELL VOLUME 83.7 fL (80.0-94.0); MEAN CORPUSCULAR HEMOGLOBIN 26.5 pg (27.0-31.0); MEAN CORPUSCULAR HGB CONC 31.7 g/dL (33.0-37.0); MEAN PLATELET VOLUME 8.2 fL (7.2-11.7); RBC 2.64 Mil/uL (4.40-5.90); RED CELL DISTRIBUTION WIDTH 18.4 % (11.5-14.5); WHITE BLOOD COUNT 4.9 K/uL (4.8-10.8)
[2017-03-19] MEDS ORDERED: Pantoprazole 40 mg EC Tab PO SCH (10:00)
[2017-03-19] MEDS: Pantoprazole 40 mg EC Tab PO SCH (10:15)
[2017-03-19] MEDS: Cilostazol 100 mg Tab UD PO SCH ×2 (11:00→18:49)
[2017-03-19] MEDS: Metoprolol Succinate 25 mg XL Tab PO SCH (11:00)
[2017-03-19] MEDS: (Lantus) Insulin Glargine, Recombinant SC SCH (11:00)
--- NOTE | 2017-03-19 13:13 | CP.PCM.PN ---
Addendum entered and electronically signed by Kenji Dawn 03/19/17 18:05: Stool OB positive. GI consult placed- Dr. Ag- help appreciated. Oscar Dawn PGY 1 Original Note: <Kenji Dawn - Last Filed: 03/19/17 16:52> Subjective - Date & Time of Evaluation Date of Evaluation: 03/19/17 Time of Evaluation: 13:07 - Subjective Subjective: PGY-[address] Ambrocio's service Patient was examined at bedside. Patient was in no acute distress. Overnight patient took off his nasal cannula and attempted to use the bathroom at which point he desaturated into the 70s, he was then put on bipap and began to saturate in high 90s. Patient said he felt fine. He denied chest pain, n/v/d/c, Objective - Vital Signs/Intake and Output Vital Signs (last 24 hours): Temp Pulse Resp BP Pulse Ox 98.8 F 97 H 20 100/67 96 03/18/17 23:35 03/19/17 00:55 03/18/17 23:35 03/19/17 11:00 03/18/17 23:35 - Medications Medications: Current Medications Albuterol/Ipratropium (Duoneb 3 Mg/0.5 Mg (3 Ml) Ud) 3 ml INH RQ6 [facility] Last Admin: 03/19/17 07:39 Dose: 3 ml Amiodarone HCl (Cordarone) 200 mg PO DAILY [facility] Last Admin: 03/19/17 11:00 Dose: 200 mg Cilostazol (Pletal) 100 mg PO BID [facility] Last Admin: 03/19/17 11:00 Dose: 100 mg Famotidine (Pepcid) 20 mg PO DAILY [facility] Last Admin: 03/19/17 11:00 Dose: 20 mg Ferrous Sulfate (Feosol) 325 mg PO BID [facility] Last Admin: 03/19/17 11:05 Dose: 325 mg Furosemide (Lasix) 40 mg IVP BID [facility] Last Admin: 03/19/17 11:00 Dose: 40 mg Gabapentin (Neurontin) 100 mg PO BID [facility] Last Admin: 03/19/17 11:00 Dose: 100 mg Insulin Aspart (Novolog) 0 unit SC ACHS [facility] PRN Reason: Protocol Last Admin: 03/19/17 12:30 Dose: 4 unit Insulin Glargine (Lantus) 10 unit SC DAILY [facility] Last Admin: 03/19/17 11:00 Dose: 10 u Losartan Potassium (Cozaar) 25 mg PO DAILY [facility] Metoprolol Succinate (Toprol Xl) 25 mg PO DAILY [facility] Last Admin: 03/19/17 11:00 Dose: 25 mg Mupirocin (Bactroban Ointment) 0 gm TOP BID [facility] Last Admin: 03/18/17 23:08 Dose: 1 applic Pantoprazole Sodium (Protonix Ec Tab) 40 mg PO DAILY [facility] Last Admin: 03/19/17 10:15 Dose: 40 mg Fluticasone/Salmeterol (Advair Diskus 100/50) 1 puff IH RQD [facility] - Labs Labs: 03/19/17 09:01 03/19/17 07:05 Assessment and Plan - Assessment and Plan (Free Text) Assessment: SOB most likely 2/2 CHF Exacerbation b/l LE pitting edema; wheezing and rhonchi on ausc Echo from 10/2016 showed EF of 30%-35%, impaired systolic function Chest-xray showed cardiomegaly, calcification of aotric knob. 2nd chest xray ordered due to poor quality of 1st. BNP 77652 Lasix 40mg IVP BID BIPAP ABG ordered CMP, CBC ordered Ins and Outs albuterol/ipratropium 3ml INH RQ6 Fluticasone/Salmeterol 1 puff Peak flow pre/post tx abnormal EKG; JENNIFER panel negative x3 Cardiology agrees with transfusion and bipap. f/u further cardio recs critical care consulted [employer], Dr Padilla, consulted Chronic Anemia Hgb 8.3 -> Hgb 7 (today) MCV 83.7 Iron 36 TIBC 285 % saturation 14 Transferrin 211 Typed and screened and pRBC administered via PICC line. f/u Hgb level f/u haptoglobin level f/u FOBT con't home med of ferrous sulfate 325 mg BID Acute Kidney Injury BUN 62, Creat 1.[address] Martinez of Nephro recs include: "ckd 3, not clear if acute component. Likely underlying cardiorenal syndrome. would hold losarten, given relative hypotension renal w/u including us, urine analysis spep ordered" Afib Afib previously diagnosed con't home med of Amiodarone 200mg PO daily holding home med of Rivaroxaban 15mg PO daily due to possibility of internal bleed Open wound on right foot at site of amputation Podiatry consulted Dysuria f/u urinalysis f/u urine culture negative blood culture x1 PVD Venous duplex scan ordered con't home med of cilostazol 100 mg BID DM random glucose 310 f/u HbA1C Insulin Aspart SC ACHS Gabapentin 100 mg BID consistent carbohydrate HTN BP in ED 126/83 holding home med of Losartan 25mg as per nephro rec Prophylactic Measures holding Rivaroxaban 15mg for DVT prophylaxis due to possibility of internal bleed pepcid 20mg for GI prophylaxis <Daniel Ambrocio - Last Filed: 03/19/17 18:42> Objective - Vital Signs/Intake and Output Vital Signs (last 24 hours): Temp Pulse Resp BP Pulse Ox 97.9 F 89 18 95/62 L 97 03/19/17 18:37 03/19/17 18:37 03/19/17 18:37 03/19/17 18:37 03/19/17 15:35 Intake and Output: 03/19/17 03/19/17 06:59 18:59 Intake Total 0 Balance 0 - Medications Medications: Current Medications Albuterol/Ipratropium (Duoneb 3 Mg/0.5 Mg (3 Ml) Ud) 3 ml INH RQ6 [facility] Last Admin: 03/19/17 13:34 Dose: 3 ml Amiodarone HCl (Cordarone) 200 mg PO DAILY [facility] Last Admin: 03/19/17 11:00 Dose: 200 mg Cilostazol (Pletal) 100 mg PO BID [facility] Last Admin: 03/19/17 11:00 Dose: 100 mg Famotidine (Pepcid) 20 mg PO DAILY [facility] Last Admin: 03/19/17 11:00 Dose: 20 mg Ferrous Sulfate (Feosol) 325 mg PO BID [facility] Last Admin: 03/19/17 11:05 Dose: 325 mg Furosemide (Lasix) 40 mg IVP BID [facility] Last Admin: 03/19/17 11:00 Dose: 40 mg Gabapentin (Neurontin) 100 mg PO BID [facility] Last Admin: 03/19/17 11:00 Dose: 100 mg Insulin Aspart (Novolog) 0 unit SC ACHS [facility] PRN Reason: Protocol Last Admin: 03/19/17 12:30 Dose: 4 unit Insulin Glargine (Lantus) 10 unit SC DAILY [facility] Last Admin: 03/19/17 11:00 Dose: 10 u Metoprolol Succinate (Toprol Xl) 25 mg PO DAILY [facility] Last Admin: 03/19/17 11:00 Dose: 25 mg Mupirocin (Bactroban Ointment) 0 gm TOP BID [facility] Last Admin: 03/18/17 23:08 Dose: 1 applic Pantoprazole Sodium (Protonix Ec Tab) 40 mg PO DAILY [facility] Last Admin: 03/19/17 10:15 Dose: 40 mg Fluticasone/Salmeterol (Advair Diskus 100/50) 1 puff IH RQD [facility] - Labs Labs: 03/19/17 09:01 03/19/17 07:05 PT 24.6 SECONDS (9.7-12.2) H 03/18/17 17:38 INR 2.1 03/18/17 17:38 APTT 33 SECONDS (21-34) 03/18/17 17:38 Attending/Attestation - Attestation I have personally seen and examined this patient.: Yes I have fully participated in the care of the patient.: Yes I have reviewed all pertinent clinical information, including history, physical exam and plan: Yes Notes (Text): 03/19/17 18:40 Patient was seen and examined at bedside with the resident Patient appears confused today Labs noted. Patient has hemoglobin of 7. We will administer 1 unit of PRBC today Cardiology evaluation noted We will hold Xarelto because of the anemia We will check for stool occult and if positive we'll request gastroenterology evaluation I discussed the plan of care with the resident and agree with the assessment and plan but the resident.
--- NOTE | 2017-03-19 14:47 | CP.PCM.CON ---
History of Present Illness - History of Present Illness History of Present Illness: 71 M w/ PMHx of CAD, CABG, AFib, DM w/ b/l toe amp, PVD, HTN, chronic anemia presents to ED complaining of SOB. SOB has been present for past few months but has worsened in the last 10 days. Associated sx include persistent cough with minimal clear phlegm. Minimal activity such as getting out of a chair make sxs worse, sitting still improve sxs. Sxs are worse at night when patient is lying flat to go to sleep. Cough interrupts his sleep at night. Patient is a poor historian, unable to get further history. Renal consult for elevated creatinine. Unclear baseline. Pt denies difficulty urinating. Has been on losarten. Noted to be mildly hypotensive. Cxray with severe vascular congestion. Review of Systems - Review of Systems Systems not reviewed;Unavailable: Uncooperative Review of Systems: unable to obtain due to clinical condition Past Patient History - Infectious Disease Hx of Infectious Diseases: None - Past Medical History & Family History Past Medical History?: Yes - Past Social History Smoking Status: Former Smoker - CARDIAC Hx Cardiac Disorders: Yes (CAD, CABG, CHF (EF 30%)) Hx Atrial Fibrillation: Yes Hx Congestive Heart Failure: Yes Hx Hypercholesterolemia: Yes Hx Hypertension: Yes Hx Mitral Valve Prolapse: Yes Hx Peripheral Edema: Yes - PULMONARY Hx Respiratory Disorders: No - NEUROLOGICAL Hx Neurological Disorder: No - HEENT Hx HEENT Problems: No - RENAL Hx Chronic Kidney Disease: No - ENDOCRINE/METABOLIC Hx Diabetes Mellitus Type 2: Yes - HEMATOLOGICAL/ONCOLOGICAL Hx Blood Disorders: No Hx Anemia: Yes - INTEGUMENTARY Hx Dermatological Problems: Yes Hx Cellulitis: Yes Other/Comment: gangrene left foot - MUSCULOSKELETAL/RHEUMATOLOGICAL Hx Falls: No - GASTROINTESTINAL Hx Gall Bladder Disease: Yes - GENITOURINARY/GYNECOLOGICAL Hx Genitourinary Disorders: No Hx Urinary Tract Infection: Yes (Admitted earlier this year for UTI) - PSYCHIATRIC Hx Substance Use: No - SURGICAL HISTORY Hx Surgeries: Yes Hx Amputation: Yes (left foot toes 2016; right foot toes 2015) Hx Coronary Artery Bypass Graft: Yes (2009) - ANESTHESIA Hx Anesthesia: Yes Hx Anesthesia Reactions: No Hx Malignant Hyperthermia: No Meds Allergies/Adverse Reactions: Allergies Allergy/AdvReac Type Severity Reaction Status Date / Time No Known Allergies Allergy Verified 03/18/17 10:39 - Medications Medications: Current Medications Albuterol/Ipratropium (Duoneb 3 Mg/0.5 Mg (3 Ml) Ud) 3 ml INH RQ6 [facility] Last Admin: 03/19/17 13:34 Dose: 3 ml Amiodarone HCl (Cordarone) 200 mg PO DAILY [facility] Last Admin: 03/19/17 11:00 Dose: 200 mg Cilostazol (Pletal) 100 mg PO BID [facility] Last Admin: 03/19/17 11:00 Dose: 100 mg Famotidine (Pepcid) 20 mg PO DAILY [facility] Last Admin: 03/19/17 11:00 Dose: 20 mg Ferrous Sulfate (Feosol) 325 mg PO BID [facility] Last Admin: 03/19/17 11:05 Dose: 325 mg Furosemide (Lasix) 40 mg IVP BID [facility] Last Admin: 03/19/17 11:00 Dose: 40 mg Gabapentin (Neurontin) 100 mg PO BID [facility] Last Admin: 03/19/17 11:00 Dose: 100 mg Insulin Aspart (Novolog) 0 unit SC [facility] PRN Reason: Protocol Last Admin: 03/19/17 12:30 Dose: 4 unit Insulin Glargine (Lantus) 10 unit SC DAILY [facility] Last Admin: 03/19/17 11:00 Dose: 10 u Metoprolol Succinate (Toprol Xl) 25 mg PO DAILY [facility] Last Admin: 03/19/17 11:00 Dose: 25 mg Mupirocin (Bactroban Ointment) 0 gm TOP BID [facility] Last Admin: 03/18/17 23:08 Dose: 1 applic Pantoprazole Sodium (Protonix Ec Tab) 40 mg PO DAILY [facility] Last Admin: 03/19/17 10:15 Dose: 40 mg Fluticasone/Salmeterol (Advair Diskus 100/50) 1 puff IH RQD [facility] Physical Exam - Constitutional Appears: Confused, Chronically Ill - Head Exam Head Exam: ATRAUMATIC - Eye Exam Eye Exam: EOMI - ENT Exam ENT Exam: Mucous Membranes Moist - Neck Exam Neck exam: Positive for: Full Rom. Negative for: Lymphadenopathy - Respiratory Exam Respiratory Exam: Decreased Breath Sounds, Rhonchi. absent: Accessory Muscle Use - Cardiovascular Exam Cardiovascular Exam: REGULAR RHYTHM. absent: Rubs - GI/Abdominal Exam GI & Abdominal Exam: Distended. absent: Guarding - Extremities Exam Extremities exam: Positive for: pedal edema - Neurological Exam Neurological exam: Alert Additional comments: not oriented - Psychiatric Exam Psychiatric exam: Normal Affect Results - Vital Signs Recent Vital Signs: Last Vital Signs Temp 98.8 F 03/18/17 23:35 Pulse 97 H 03/19/17 00:55 Resp 20 03/18/17 23:35 BP 100/67 03/19/17 11:00 Pulse Ox 96 03/18/17 23:35 - Labs Result Diagrams: 03/19/17 09:01 03/19/17 07:05 Labs: Laboratory Results - last 24 hr 03/18/17 03/18/17 03/18/17 16:48 19:49 19:49 WBC RBC Hgb Hct MCV MCH MCHC RDW Plt Count MPV Neut % (Auto) Lymph % (Auto) [place] % (Auto) Eos % (Auto) Baso % (Auto) Neut # Lymph # [place] # Eos # Baso # Sodium Potassium Chloride Carbon Dioxide Anion Gap BUN Creatinine Est GFR ( Amer) Est GFR (Non-Af Amer) POC Glucose (mg/dL) 252 H Random Glucose Calcium Phosphorus Magnesium Iron 36 L TIBC 285 % Saturation Transferrin 211.67 Ferritin Total Bilirubin AST ALT Alkaline Phosphatase Total Creatine Kinase CK-MB (Mass) Troponin I, Quant Total Protein Albumin Globulin Albumin/Globulin Ratio Blood Type Antibody Screen 03/18/17 03/18/17 03/18/17 19:56 20:13 21:06 WBC RBC Hgb Hct MCV MCH MCHC RDW Plt Count MPV Neut % (Auto) Lymph % (Auto) [place] % (Auto) Eos % (Auto) Baso % (Auto) Neut # Lymph # [place] # Eos # Baso # Sodium Potassium Chloride Carbon Dioxide Anion Gap BUN Creatinine Est GFR ( Amer) Est GFR (Non-Af Amer) POC Glucose (mg/dL) Random Glucose Calcium Phosphorus Magnesium Iron TIBC % Saturation 14 L Transferrin Ferritin 48.5 Total Bilirubin AST ALT Alkaline Phosphatase Total Creatine Kinase 44 L CK-MB (Mass) 1.20 Troponin I, Quant 0.0190 Total Protein Albumin Globulin Albumin/Globulin Ratio Blood Type Antibody Screen 03/18/17 03/18/17 03/19/17 21:49 23:50 02:21 WBC RBC Hgb Hct MCV MCH MCHC RDW Plt Count MPV Neut % (Auto) Lymph % (Auto) [place] % (Auto) Eos % (Auto) Baso % (Auto) Neut # Lymph # [place] # Eos # Baso # Sodium Potassium Chloride Carbon Dioxide Anion Gap BUN Creatinine Est GFR ( Amer) Est GFR (Non-Af Amer) POC Glucose (mg/dL) 310 H 277 H Random Glucose Calcium Phosphorus Magnesium Iron TIBC % Saturation Transferrin Ferritin Total Bilirubin AST ALT Alkaline Phosphatase Total Creatine Kinase 35 L CK-MB (Mass) 1.27 Troponin I, Quant 0.0310 Total Protein Albumin Globulin Albumin/Globulin Ratio Blood Type Antibody Screen 03/19/17 03/19/17 03/19/17 06:41 07:05 07:05 WBC 4.5 L D RBC 2.59 L Hgb 6.8 L Hct 21.8 L MCV 84.2 MCH 26.5 L MCHC 31.4 L RDW 18.5 H Plt Count 325 D MPV 8.3 Neut % (Auto) 83.7 H Lymph % (Auto) 12.6 L [place] % (Auto) 3.6 Eos % (Auto) 0.0 Baso % (Auto) 0.1 Neut # 3.8 Lymph # 0.6 L [place] # 0.2 Eos # 0.0 Baso # 0.0 Sodium 144 Potassium 3.9 Chloride 107 Carbon Dioxide 22 Anion Gap 18 BUN 62 H Creatinine 1.7 H Est GFR ( Amer) 48 Est GFR (Non-Af Amer) 40 POC Glucose (mg/dL) 247 H Random Glucose 215 H Calcium 8.7 Phosphorus 4.8 H Magnesium 1.9 Iron TIBC % Saturation Transferrin Ferritin Total Bilirubin 1.1 AST 15 L D ALT 8 L D Alkaline Phosphatase 73 Total Creatine Kinase 33 L CK-MB (Mass) 1.05 Troponin I, Quant 0.0390 Total Protein 6.9 Albumin 3.0 L Globulin 4.0 H Albumin/Globulin Ratio 0.8 L Blood Type Antibody Screen 03/19/17 03/19/17 03/19/17 09:01 11:07 11:59 WBC 4.9 RBC 2.64 L Hgb 7.0 L Hct 22.1 L MCV 83.7 MCH 26.5 L MCHC 31.7 L RDW 18.4 H Plt Count 321 MPV 8.2 Neut % (Auto) Lymph % (Auto) [place] % (Auto) Eos % (Auto) Baso % (Auto) Neut # Lymph # [place] # Eos # Baso # Sodium Potassium Chloride Carbon Dioxide Anion Gap BUN Creatinine Est GFR ( Amer) Est GFR (Non-Af Amer) POC Glucose (mg/dL) 276 H Random Glucose Calcium Phosphorus Magnesium Iron TIBC % Saturation Transferrin Ferritin Total Bilirubin AST ALT Alkaline Phosphatase Total Creatine Kinase CK-MB (Mass) Troponin I, Quant Total Protein Albumin Globulin Albumin/Globulin Ratio Blood Type O POSITIVE Antibody Screen Negative Assessment & Plan - Assessment and Plan (Free Text) Assessment: ckd 3,not clear if acute component likely underlying cardiorenal syndrome pt appears to be volume overloaded at present, agree with diuretics would hold losarten, given relative hypotension renal w/u including us, urine analysis severe anemia, for blood transfusion spep ordered
--- NOTE | 2017-03-19 16:03 | RAD ---
HISTORY: verify right PICC COMPARISON: Comparison made with chest radiograph 03/18/2017 FINDINGS: LUNGS: Interval placement right-sided PICC line with the tip in the SVC. Previously noted suspected mild pulmonary vascular congestive changes again noted. . Findings are somewhat more confluent in the right infrahilar region though this could be due to persistent elevation right hemidiaphragm (questionable eventration) and some associated atelectasis. . PLEURA: No apparent pneumothorax CARDIOVASCULAR: Re- demonstrated sternotomy wires and cardiomegaly. . OSSEOUS STRUCTURES: No significant abnormalities. VISUALIZED UPPER ABDOMEN: Normal. OTHER FINDINGS: None. IMPRESSION: Interval placement right-sided PICC line with the tip in the SVC. Previously noted suspected mild pulmonary vascular congestive changes again noted. . Findings are somewhat more confluent in the right infrahilar region though this could be due to persistent elevation right hemidiaphragm (questionable eventration) and some associated atelectasis. .
--- NOTE | 2017-03-19 17:42 | CP.PCM.HP ---
Past Patient History - Infectious Disease Hx of Infectious Diseases: None - Past Medical History & Family History Past Medical History?: Yes - Past Social History Smoking Status: Former Smoker - CARDIAC Hx Cardiac Disorders: Yes (CAD, CABG, CHF (EF 30%)) Hx Atrial Fibrillation: Yes Hx Congestive Heart Failure: Yes Hx Hypercholesterolemia: Yes Hx Hypertension: Yes Hx Mitral Valve Prolapse: Yes Hx Peripheral Edema: Yes - PULMONARY Hx Respiratory Disorders: No - NEUROLOGICAL Hx Neurological Disorder: No - HEENT Hx HEENT Problems: No - RENAL Hx Chronic Kidney Disease: No - ENDOCRINE/METABOLIC Hx Diabetes Mellitus Type 2: Yes - HEMATOLOGICAL/ONCOLOGICAL Hx Blood Disorders: No Hx Anemia: Yes - INTEGUMENTARY Hx Dermatological Problems: Yes Hx Cellulitis: Yes Other/Comment: gangrene left foot - MUSCULOSKELETAL/RHEUMATOLOGICAL Hx Falls: No - GASTROINTESTINAL Hx Gall Bladder Disease: Yes - GENITOURINARY/GYNECOLOGICAL Hx Genitourinary Disorders: No Hx Urinary Tract Infection: Yes (Admitted earlier this year for UTI) - PSYCHIATRIC Hx Substance Use: No - SURGICAL HISTORY Hx Surgeries: Yes Hx Amputation: Yes (left foot toes 2016; right foot toes 2015) Hx Coronary Artery Bypass Graft: Yes (2009) - ANESTHESIA Hx Anesthesia: Yes Hx Anesthesia Reactions: No Hx Malignant Hyperthermia: No Meds Allergies/Adverse Reactions: Allergies Allergy/AdvReac Type Severity Reaction Status Date / Time No Known Allergies Allergy Verified 03/18/17 10:39 Results - Vital Signs Recent Vital Signs: Last Vital Signs Temp 97.4 F L 03/19/17 15:35 Pulse 84 03/19/17 15:35 Resp 22 03/19/17 15:35 BP 92/59 L 03/19/17 15:35 Pulse Ox 97 03/19/17 15:35 - Labs Result Diagrams: 03/19/17 09:01 03/19/17 07:05 Labs: Laboratory Results - last 24 hr 03/18/17 03/18/17 03/18/17 19:49 19:49 19:56 WBC RBC Hgb Hct MCV MCH MCHC RDW Plt Count MPV Neut % (Auto) Lymph % (Auto) [place] % (Auto) Eos % (Auto) Baso % (Auto) Neut # Lymph # [place] # Eos # Baso # Sodium Potassium Chloride Carbon Dioxide Anion Gap BUN Creatinine Est GFR ( Amer) Est GFR (Non-Af Amer) POC Glucose (mg/dL) Random Glucose Calcium Phosphorus Magnesium Iron 36 L TIBC 285 % Saturation 14 L Transferrin 211.67 Ferritin Total Bilirubin AST ALT Alkaline Phosphatase Total Creatine Kinase CK-MB (Mass) Troponin I, Quant Total Protein Albumin Globulin Albumin/Globulin Ratio Stool Occult Blood Blood Type Antibody Screen 03/18/17 03/18/17 03/18/17 20:13 21:06 21:49 WBC RBC Hgb Hct MCV MCH MCHC RDW Plt Count MPV Neut % (Auto) Lymph % (Auto) [place] % (Auto) Eos % (Auto) Baso % (Auto) Neut # Lymph # [place] # Eos # Baso # Sodium Potassium Chloride Carbon Dioxide Anion Gap BUN Creatinine Est GFR ( Amer) Est GFR (Non-Af Amer) POC Glucose (mg/dL) 310 H Random Glucose Calcium Phosphorus Magnesium Iron TIBC % Saturation Transferrin Ferritin 48.5 Total Bilirubin AST ALT Alkaline Phosphatase Total Creatine Kinase 44 L CK-MB (Mass) 1.20 Troponin I, Quant 0.0190 Total Protein Albumin Globulin Albumin/Globulin Ratio Stool Occult Blood Blood Type Antibody Screen 03/18/17 03/19/17 03/19/17 23:50 02:21 06:41 WBC RBC Hgb Hct MCV MCH MCHC RDW Plt Count MPV Neut % (Auto) Lymph % (Auto) [place] % (Auto) Eos % (Auto) Baso % (Auto) Neut # Lymph # [place] # Eos # Baso # Sodium Potassium Chloride Carbon Dioxide Anion Gap BUN Creatinine Est GFR ( Amer) Est GFR (Non-Af Amer) POC Glucose (mg/dL) 277 H 247 H Random Glucose Calcium Phosphorus Magnesium Iron TIBC % Saturation Transferrin Ferritin Total Bilirubin AST ALT Alkaline Phosphatase Total Creatine Kinase 35 L CK-MB (Mass) 1.27 Troponin I, Quant 0.0310 Total Protein Albumin Globulin Albumin/Globulin Ratio Stool Occult Blood Blood Type Antibody Screen 03/19/17 03/19/17 03/19/17 07:05 07:05 09:01 WBC 4.5 L D 4.9 RBC 2.59 L 2.64 L Hgb 6.8 L 7.0 L Hct 21.8 L 22.1 L MCV 84.2 83.7 MCH 26.5 L 26.5 L MCHC 31.4 L 31.7 L RDW 18.5 H 18.4 H Plt Count 325 D 321 MPV 8.3 8.2 Neut % (Auto) 83.7 H Lymph % (Auto) 12.6 L [place] % (Auto) 3.6 Eos % (Auto) 0.0 Baso % (Auto) 0.1 Neut # 3.8 Lymph # 0.6 L [place] # 0.2 Eos # 0.0 Baso # 0.0 Sodium 144 Potassium 3.9 Chloride 107 Carbon Dioxide 22 Anion Gap 18 BUN 62 H Creatinine 1.7 H Est GFR ( Amer) 48 Est GFR (Non-Af Amer) 40 POC Glucose (mg/dL) Random Glucose 215 H Calcium 8.7 Phosphorus 4.8 H Magnesium 1.9 Iron TIBC % Saturation Transferrin Ferritin Total Bilirubin 1.1 AST 15 L D ALT 8 L D Alkaline Phosphatase 73 Total Creatine Kinase 33 L CK-MB (Mass) 1.05 Troponin I, Quant 0.0390 Total Protein 6.9 Albumin 3.0 L Globulin 4.0 H Albumin/Globulin Ratio 0.8 L Stool Occult Blood Blood Type Antibody Screen 03/19/17 03/19/17 03/19/17 11:07 11:59 17:18 WBC RBC Hgb Hct MCV MCH MCHC RDW Plt Count MPV Neut % (Auto) Lymph % (Auto) [place] % (Auto) Eos % (Auto) Baso % (Auto) Neut # Lymph # [place] # Eos # Baso # Sodium Potassium Chloride Carbon Dioxide Anion Gap BUN Creatinine Est GFR ( Amer) Est GFR (Non-Af Amer) POC Glucose (mg/dL) 276 H Random Glucose Calcium Phosphorus Magnesium Iron TIBC % Saturation Transferrin Ferritin Total Bilirubin AST ALT Alkaline Phosphatase Total Creatine Kinase CK-MB (Mass) Troponin I, Quant Total Protein Albumin Globulin Albumin/Globulin Ratio Stool Occult Blood Positive H Blood Type O POSITIVE Antibody Screen Negative Assessment & Plan (1) Acute exacerbation of CHF (congestive heart failure) Status: Acute (2) Shortness of breath Status: Acute (3) Dehydration Status: Acute (4) LETICIA (acute kidney injury) Status: Acute
[2017-03-19 17:52] LABS: INR 2.1
[2017-03-19 17:54] LABS: PROTHROMBIN TIME 24.6 SECONDS (9.7-12.2)
--- NOTE | 2017-03-19 18:29 | US ---
PROCEDURE: Ultrasound of the Kidneys HISTORY: ckd COMPARISON: CT abdomen pelvis without oral or IV contrast performed 11/21/16 TECHNIQUE: Sonogram of the kidneys. FINDINGS: Examination limited due to patient condition and inability to breath hold. RIGHT KIDNEY: Measures: 10.8 x 5.3 x 5.1 cm. Echogenic renal parenchyma. No obstructing calculus or hydronephrosis identified. LEFT KIDNEY: Measures: 8.2 x 3.6 x 3.9 cm. Echogenic renal parenchyma. No obstructing calculus or hydronephrosis identified. OTHER FINDINGS: Partially imaged moderate abdominal and pelvic ascites. IMPRESSION: Examination limited due to patient condition and inability to breath hold. Echogenic renal parenchyma may be seen in the setting of medical renal disease. Asymmetric renal size with the left kidney diminutive as compared to the right. Incidental note is made of partially imaged moderate abdominal and pelvic ascites.
[2017-03-20] MEDS: Albuterol-Ipratrop 3 mg / 0.5 (3 ml) UD INH SCH ×4 (01:21→20:36)
[2017-03-20 07:10] LABS: BASO % 0.1 % (0.0-2.0); HEMOGLOBIN 7.5 g/dL (12.0-18.0); LYMPH # 0.4 K/uL (1.0-4.3); LYMPH % 6.2 % (20.0-40.0); MEAN CELL VOLUME 83.6 fL (80.0-94.0); MEAN CORPUSCULAR HEMOGLOBIN 26.7 pg (27.0-31.0); MEAN CORPUSCULAR HGB CONC 31.9 g/dL (33.0-37.0); MEAN PLATELET VOLUME 8.1 fL (7.2-11.7); MONO # 0.4 K/uL (0.0-0.8); MONO % 5.8 % (0.0-10.0); NEUT # 6.2 K/uL (1.8-7.0); NEUT % 87.9 % (50.0-75.0); PLATELET COUNT 322 K/uL (130-400); RBC 2.82 Mil/uL (4.40-5.90); RED CELL DISTRIBUTION WIDTH 17.9 % (11.5-14.5); WHITE BLOOD COUNT 7.1 K/uL (4.8-10.8)
[2017-03-20 07:43] LABS: ALBUMIN 2.5 g/dL (3.5-5.0)
[2017-03-20 07:45] LABS: ALB/GLOB RATIO 0.7 (1.0-2.1)
[2017-03-20 07:46] LABS: CALCIUM 8.4 mg/dl (8.6-10.4)
[2017-03-20] MEDS: (Novolog) Insulin Aspart, Recombinant 100 u/ml 10 ml vial SC SCH ×4 (08:25→19:13)
[2017-03-20 08:32] LABS: URINE BILIRUBIN NEGATIVE (NEGATIVE); URINE BLOOD 1+ (NEGATIVE); URINE CLARITY Clear (Clear); URINE COLOR Yellow (YELLOW); URINE GLUCOSE (UA) NORMAL (Normal); URINE LEUKOCYTE ESTERASE NEG Leu/uL (Negative); URINE NITRATE NEGATIVE (NEGATIVE); URINE PROTEIN NEGATIVE (NEGATIVE); URINE UROBILINOGEN NORMAL mg/dL (0.2-1.0)
[2017-03-20 08:45] LABS: LYMPHOCYTE 6 % (20-40); MONOCYTE 5 % (0-10); NEUTROPHIL 89 % (50-75); PLATELET ESTIMATE NORMAL (NORMAL); TOTAL CELLS COUNTED 100
[2017-03-20 08:46] LABS: ANISOCYTOSIS SLIGHT; BURR CELLS SLIGHT; MICROCYTOSIS SLIGHT; OVALOCYTES SLIGHT; POIKILOCYTOSIS SLIGHT
[2017-03-20] MEDS: Pantoprazole 40 mg EC Tab PO SCH (10:32)
[2017-03-20] MEDS: Metoprolol Succinate 25 mg XL Tab PO SCH (10:34)
[2017-03-20] MEDS: (Lantus) Insulin Glargine, Recombinant SC SCH (10:35)
[2017-03-20] MEDS: Cilostazol 100 mg Tab UD PO SCH ×2 (10:43→17:57)
--- NOTE | 2017-03-20 11:34 | CP.PCM.CON ---
History of Present Illness - History of Present Illness History of Present Illness: Patient seen bedside with Dr. Barnes regarding B/L TMA. Patient is seen resting in bed in NAD. Admits mild pain to left TMA site, denies pain to right TMA site. Patient is seen with caregiver who expresses concern about status of right TMA site. States it does not seem to be fully healed. Patient denies F/C /N/V/. Review of Systems - Constitutional Constitutional: As Per HPI Past Patient History - Infectious Disease Hx of Infectious Diseases: None - Past Medical History & Family History Past Medical History?: Yes - Past Social History Smoking Status: Former Smoker - CARDIAC Hx Cardiac Disorders: Yes (CAD, CABG, CHF (EF 30%)) Hx Atrial Fibrillation: Yes Hx Congestive Heart Failure: Yes Hx Hypercholesterolemia: Yes Hx Hypertension: Yes Hx Mitral Valve Prolapse: Yes Hx Peripheral Edema: Yes - PULMONARY Hx Respiratory Disorders: No - NEUROLOGICAL Hx Neurological Disorder: No - HEENT Hx HEENT Problems: No - RENAL Hx Chronic Kidney Disease: No - ENDOCRINE/METABOLIC Hx Diabetes Mellitus Type 2: Yes - HEMATOLOGICAL/ONCOLOGICAL Hx Blood Disorders: No Hx Anemia: Yes - INTEGUMENTARY Hx Dermatological Problems: Yes Hx Cellulitis: Yes Other/Comment: gangrene left foot - MUSCULOSKELETAL/RHEUMATOLOGICAL Hx Falls: No - GASTROINTESTINAL Hx Gall Bladder Disease: Yes - GENITOURINARY/GYNECOLOGICAL Hx Genitourinary Disorders: No Hx Urinary Tract Infection: Yes (Admitted earlier this year for UTI) - PSYCHIATRIC Hx Substance Use: No - SURGICAL HISTORY Hx Surgeries: Yes Hx Amputation: Yes (left foot toes 2017; right foot toes 2016) Hx Coronary Artery Bypass Graft: Yes (2009) - ANESTHESIA Hx Anesthesia: Yes Hx Anesthesia Reactions: No Hx Malignant Hyperthermia: No Meds Allergies/Adverse Reactions: Allergies Allergy/AdvReac Type Severity Reaction Status Date / Time No Known Allergies Allergy Verified 03/18/17 10:39 - Medications Medications: Current Medications Albuterol/Ipratropium (Duoneb 3 Mg/0.5 Mg (3 Ml) Ud) 3 ml INH RQ6 [facility] Last Admin: 03/20/17 07:24 Dose: 3 ml Amiodarone HCl (Cordarone) 200 mg PO DAILY [facility] Last Admin: 03/20/17 10:33 Dose: 200 mg Calcium Acetate (Phoslo) 667 mg PO ONCE ONE Stop: 03/20/17 12:01 Carvedilol (Coreg) 6.25 mg PO BID [facility] Cilostazol (Pletal) 100 mg PO BID [facility] Last Admin: 03/20/17 10:43 Dose: 100 mg Famotidine (Pepcid) 20 mg PO DAILY [facility] Last Admin: 03/20/17 10:33 Dose: 20 mg Ferrous Sulfate (Feosol) 325 mg PO BID [facility] Last Admin: 03/20/17 10:34 Dose: 325 mg Furosemide (Lasix) 20 mg IVP BID [facility] Gabapentin (Neurontin) 100 mg PO BID [facility] Last Admin: 03/20/17 10:32 Dose: 100 mg Insulin Aspart (Novolog) 0 unit SC ACHS [facility] PRN Reason: Protocol Last Admin: 03/20/17 08:25 Dose: 2 unit Insulin Glargine (Lantus) 10 unit SC DAILY [facility] Last Admin: 03/20/17 10:35 Dose: 10 u Mupirocin (Bactroban Ointment) 0 gm TOP BID [facility] Last Admin: 03/20/17 10:44 Dose: 1 applic Pantoprazole Sodium (Protonix Inj) 40 mg IVP DAILY [facility] Fluticasone/Salmeterol (Advair Diskus 100/50) 1 puff IH RQD [facility] Physical Exam - Constitutional Appears: No Acute Distress - Extremities Exam Additional comments: Le exam: Vascular: Dp and PT pulses non-palpable, CFT >5sec to dorsal and plantar flaps , temperature cool to touch B/L. Neuro: Gross sensation diminished. Derm: Right TMA site with eschar at medial aspect of incision and hyerpkeratotic tissue at lateral portion, no drainage, no probe to bone, no malodor. Left TMA site with no dehiscence, no drainage, skin edges with minimal hyerpkeratotic tissue. MSK: B/L TMA - Neurological Exam Neurological exam: Alert, Oriented x3 Results - Vital Signs Recent Vital Signs: Last Vital Signs Temp 97.3 F L 03/20/17 07:25 Pulse 79 03/20/17 07:25 Resp 20 03/20/17 07:25 BP 87/59 L 03/20/17 10:35 Pulse Ox 100 03/20/17 07:25 - Labs Result Diagrams: 03/20/17 07:02 03/20/17 07:02 Labs: Laboratory Results - last 24 hr 03/18/17 03/19/17 03/19/17 17:38 11:07 11:59 WBC RBC Hgb Hct MCV MCH MCHC RDW Plt Count MPV Neut % (Auto) Lymph % (Auto) [place] % (Auto) Eos % (Auto) Baso % (Auto) Neut # Lymph # [place] # Eos # Baso # Neutrophils % (Manual) Lymphocytes % (Manual) Monocytes % (Manual) Platelet Estimate Poikilocytosis (manual Anisocytosis (manual) Microcytosis (manual) Macrocytosis (manual) Ovalocytes [place] Cells PT 24.6 H INR 2.1 APTT 33 Sodium Potassium Chloride Carbon Dioxide Anion Gap BUN Creatinine Est GFR ( Amer) Est GFR (Non-Af Amer) POC Glucose (mg/dL) 276 H Random Glucose Hemoglobin A1c Calcium Phosphorus Magnesium Total Bilirubin AST ALT Alkaline Phosphatase Total Protein Albumin Globulin Albumin/Globulin Ratio Urine Color Urine Clarity Urine pH Ur Specific [place] Urine Protein Urine Glucose (UA) Urine Ketones Urine Blood Urine Nitrate Urine Bilirubin Urine Urobilinogen Ur Leukocyte Esterase Urine WBC (Auto) Urine RBC (Auto) Ur Random Sodium Stool Occult Blood Blood Type O POSITIVE Antibody Screen Negative 03/19/17 03/19/17 03/19/17 17:18 17:48 21:07 WBC RBC Hgb Hct MCV MCH MCHC RDW Plt Count MPV Neut % (Auto) Lymph % (Auto) [place] % (Auto) Eos % (Auto) Baso % (Auto) Neut # Lymph # [place] # Eos # Baso # Neutrophils % (Manual) Lymphocytes % (Manual) Monocytes % (Manual) Platelet Estimate Poikilocytosis (manual Anisocytosis (manual) Microcytosis (manual) Macrocytosis (manual) Ovalocytes [place] Cells PT INR APTT Sodium Potassium Chloride Carbon Dioxide Anion Gap BUN Creatinine Est GFR ( Amer) Est GFR (Non-Af Amer) POC Glucose (mg/dL) 253 H 250 H Random Glucose Hemoglobin A1c Calcium Phosphorus Magnesium Total Bilirubin AST ALT Alkaline Phosphatase Total Protein Albumin Globulin Albumin/Globulin Ratio Urine Color Urine Clarity Urine pH Ur Specific [place] Urine Protein Urine Glucose (UA) Urine Ketones Urine Blood Urine Nitrate Urine Bilirubin Urine Urobilinogen Ur Leukocyte Esterase Urine WBC (Auto) Urine RBC (Auto) Ur Random Sodium Stool Occult Blood Positive H Blood Type Antibody Screen 03/20/17 03/20/17 03/20/17 06:21 07:02 07:02 WBC 7.1 RBC 2.82 L Hgb 7.5 L Hct 23.6 L MCV 83.6 MCH 26.7 L MCHC 31.9 L RDW 17.9 H Plt Count 322 MPV 8.1 Neut % (Auto) 87.9 H Lymph % (Auto) 6.2 L [place] % (Auto) 5.8 Eos % (Auto) 0.0 Baso % (Auto) 0.1 Neut # 6.2 Lymph # 0.4 L [place] # 0.4 Eos # 0.0 Baso # 0.0 Neutrophils % (Manual) 89 H Lymphocytes % (Manual) 6 L Monocytes % (Manual) 5 Platelet Estimate Normal Poikilocytosis (manual Slight Anisocytosis (manual) Slight Microcytosis (manual) Slight Macrocytosis (manual) Slight Ovalocytes Slight [place] Cells Slight PT INR APTT Sodium 141 Potassium 3.5 L Chloride 106 Carbon Dioxide 26 Anion Gap 12 BUN 67 H Creatinine 1.8 H Est GFR ( Amer) 45 Est GFR (Non-Af Amer) 37 POC Glucose (mg/dL) 199 H Random Glucose 171 H Hemoglobin A1c Calcium 8.4 L Phosphorus 4.6 H Magnesium 2.0 Total Bilirubin 1.0 AST 11 L D ALT 11 L D Alkaline Phosphatase 65 Total Protein 6.1 L Albumin 2.5 L Globulin 3.6 Albumin/Globulin Ratio 0.7 L Urine Color Urine Clarity Urine pH Ur Specific [place] Urine Protein Urine Glucose (UA) Urine Ketones Urine Blood Urine Nitrate Urine Bilirubin Urine Urobilinogen Ur Leukocyte Esterase Urine WBC (Auto) Urine RBC (Auto) Ur Random Sodium Stool Occult Blood Blood Type Antibody Screen 03/20/17 03/20/17 03/20/17 07:02 08:00 08:05 WBC RBC Hgb Hct MCV MCH MCHC RDW Plt Count MPV Neut % (Auto) Lymph % (Auto) [place] % (Auto) Eos % (Auto) Baso % (Auto) Neut # Lymph # [place] # Eos # Baso # Neutrophils % (Manual) Lymphocytes % (Manual) Monocytes % (Manual) Platelet Estimate Poikilocytosis (manual Anisocytosis (manual) Microcytosis (manual) Macrocytosis (manual) Ovalocytes [place] Cells PT INR APTT Sodium Potassium Chloride Carbon Dioxide Anion Gap BUN Creatinine Est GFR ( Amer) Est GFR (Non-Af Amer) POC Glucose (mg/dL) Random Glucose Hemoglobin A1c 7.2 H Calcium Phosphorus Magnesium Total Bilirubin AST ALT Alkaline Phosphatase Total Protein Albumin Globulin Albumin/Globulin Ratio Urine Color Yellow Urine Clarity Clear Urine pH 5.0 Ur Specific [place] 1.010 Urine Protein Negative Urine Glucose (UA) Normal Urine Ketones Negative Urine Blood 1+ H Urine Nitrate Negative Urine Bilirubin Negative Urine Urobilinogen Normal Ur Leukocyte Esterase Neg Urine WBC (Auto) 1 Urine RBC (Auto) 8 H Ur Random Sodium 54 Stool Occult Blood Blood Type Antibody Screen Assessment & Plan - Assessment and Plan (Free Text) Assessment: 71 y/o male with B/L TMA Plan: evaluated and treated with Dr. Barnes Right foot TMA site dressed with xeroform, DSD, kerlix Left foot TMA site dressed with aloe lotion, DSD, kerlix. no surgical intervention planned at this time. will continue to follow while in hospital.
--- NOTE | 2017-03-20 12:37 | PCM.RRTMUL ---
<Lydia Grullon - Last Filed: 03/20/17 13:07> [employer] POWERPLANT MECHANIC Nurses Assessment - Situation [employer] MECH[employer]IC Responder Arrival Time:: 12:33 [employer] POWERPL[employer] MECHANIC Reason for Call: Hypotension [employer] POWERPLANT MECHANIC Called By: RN - IV IV Inserted during G[employer] POWERPLANT MECHANIC?: No IV Fluids Initiated During [employer] POWERPLANT MECHANIC?: NS 250cc - Respiratory Oxygen Delivery Method:: BiPAP - Ventilator Settings FIO2 (% Oxygen):: 40 - Diagnostic Test Ordered EKG:: Yes (sinus rhythm with PVCs at 82bpm LBBB LA Left Iron Belt deviation) Chest X-Ray:: Yes (pending report) - Vital Signs Blood Pressure:: 84/46 Pulse Rate:: 77 Temperature:: 97.6 F Oxygen Saturation:: 98 - [place] Coma Scale Coma Scale Eye Opening:: Spontaneous Coma Scale Motor:: Obeys Commands Movement Coma Scale Verbal:: Oriented Coma Scale Total:: 15 - Sepsis Screen Part 1 Sepsis Screen Part 1: Hypotensive - Time [employer]OWER[employer] MECH[employer]IC Ended Time [employer] POWERPLANT MECHANIC Ended:: 13:15 (Accepted to ICU by kiln burner Patient transferred at 13 :15) - Recommendations 5) [employer] MECH[employer]IC Level of Care Recommendations: Transfer to ICU 6) Notifications: Attending Physician, Consultations, Family or Designated Caregiver <Daniel Ambrocio - Last Filed: 03/20/17 16:51> Attending/Attestation - Attestation I have personally seen and examined this patient.: Yes I have fully participated in the care of the patient.: Yes I have reviewed all pertinent clinical information, including history, physical exam and plan: Yes Notes (Text): 03/20/17 16:51 Patient transferred to ICU.
[2017-03-20] MEDS ORDERED: Sodium Chloride 0.9% 250 ML IV ONE (12:39)
--- NOTE | 2017-03-20 14:51 | CP.PCM.PN ---
<Kenji Dawn R - Last Filed: 03/20/17 14:49> Subjective - Date & Time of Evaluation Date of Evaluation: 03/20/17 Time of Evaluation: 14:49 - Subjective Subjective: PGY-[address] Ambrocio's Medicine Service Patient was seen sleeping this morning with his Bipap mask on. Patient was awoken. Patient able to respond to questions but is a poor historian. Patient denied chest pain, abdominal pain, bleeding, discomfort, shortness of breath, nausea, vomiting, diarrhea. Objective - Vital Signs/Intake and Output Vital Signs (last 24 hours): Temp Pulse Resp BP Pulse Ox 97.6 F 77 18 84/46 L 98 03/20/17 13:13 03/20/17 13:13 03/20/17 12:35 03/20/17 13:13 03/20/17 12:35 Intake and Output: 03/20/17 03/20/17 06:59 18:59 Intake Total 275 Output Total 350 Balance -75 - Medications Medications: Current Medications Albuterol/Ipratropium (Duoneb 3 Mg/0.5 Mg (3 Ml) Ud) 3 ml INH RQ6 [facility] Last Admin: 03/20/17 14:40 Dose: 3 ml Amiodarone HCl (Cordarone) 200 mg PO DAILY [facility] Last Admin: 03/20/17 10:33 Dose: 200 mg Cilostazol (Pletal) 100 mg PO BID [facility] Last Admin: 03/20/17 10:43 Dose: 100 mg Collagenase (Santyl) 1 gm TOP DAILY [facility] Ferrous Sulfate (Feosol) 325 mg PO BID [facility] Last Admin: 03/20/17 10:34 Dose: 325 mg Gabapentin (Neurontin) 100 mg PO BID [facility] Last Admin: 03/20/17 10:32 Dose: 100 mg Insulin Aspart (Novolog) 0 unit SC [facility] PRN Reason: Protocol Last Admin: 03/20/17 14:44 Dose: Not Given Insulin Glargine (Lantus) 10 unit SC DAILY [facility] Last Admin: 03/20/17 10:35 Dose: 10 u Mupirocin (Bactroban Ointment) 0 gm TOP BID [facility] Last Admin: 03/20/17 10:44 Dose: 1 applic Fluticasone/Salmeterol (Advair Diskus 100/50) 1 puff IH RQD [facility] - Labs Labs: 03/20/17 07:02 03/20/17 07:02 PT 24.6 SECONDS (9.7-12.2) H 03/18/17 17:38 INR 2.1 03/18/17 17:38 APTT 33 SECONDS (21-34) 03/18/17 17:38 - Constitutional Appears: Well, No Acute Distress - Head Exam Head Exam: ATRAUMATIC, NORMAL INSPECTION - Eye Exam Eye Exam: Normal appearance - ENT Exam ENT Exam: Mucous Membranes Moist - Neck Exam Neck Exam: Full ROM - Respiratory Exam Respiratory Exam: Rhonchi, Wheezes - Cardiovascular Exam Cardiovascular Exam: Murmur Additional comments: left sternal border - GI/Abdominal Exam GI & Abdominal Exam: Distended, Normal Bowel Sounds - Rectal Exam Rectal Exam: Deferred - Extremities Exam Extremities Exam: Pedal Edema Additional comments: 3/6 pitting edema up to knees bilaterally - Neurological Exam Neurological Exam: Alert, Awake - Psychiatric Exam Psychiatric exam: Normal Mood - Skin Skin Exam: Normal Color Assessment and Plan (1) Shortness of breath Assessment & Plan: SOB 2/2 CHF exacerbation vs Anemia b/l LE pitting edema; wheezing and rhonchi on auscultation Echo from 10/2016 showed EF of 30%-35%, impaired systolic function Chest-xray showed cardiomegaly, calcification of aotric knob. 2nd chest xray ordered due to poor quality of 1st. BNP [id number] Lasix 40mg IVP BID discontinued due to patients hypotension (87/56 this AM). Started lasix 20mg BID. Lasix 20mg BID discontinued due to further hypotension. BIPAP ABG ordered Following CMP, CBC Ins and Outs: weight gain of 7lbs since admission albuterol/ipratropium 3ml INH RQ6 Fluticasone/Salmeterol 1 puff Peak flow pre/post tx JENNIFER panel negative x3 Cardiology agrees with transfusion and bipap. f/u further cardio recs Bottoming Machine Operator, Dr Padilal, consulted Critical care consulted An BOAT DOCK OPERATOR was called at 12:33 by the patients nurse due to hypotension. Patient systolic BP fell into 70s. Patient was given 250 cc NS. Patients BP improved to 84/46. Patient was transferred to ICU. Holding metoprolol succinate due to hypotension Status: Acute (2) Anemia Assessment & Plan: Hgb today is 7.5 after transfusing 1unit of pRBC yesterday. Hgb yesterday was 7. FOBT postive, Dr. sosa from GI consulted and will see patient. F/u GI recs. MCV 83.7 Iron 36 TIBC 285 % saturation 14 Transferrin 211 f/u Hgb level f/u haptoglobin level con't home med of ferrous sulfate 325 mg BID Status: Chronic (3) LETICIA (acute kidney injury) Assessment & Plan: BUN 67, Creat 1.8, both trending up Nephrology consulted. Dr. Martinez of Nephro recs include: "ckd 3, not clear if acute component. Likely underlying cardiorenal syndrome. would hold losarten, given relative hypotension renal w/u including us, urine analysis spep ordered" Status: Acute (4) A-fib Assessment & Plan: Afib previously diagnosed con't home med of Amiodarone 200mg PO daily holding home med of Rivaroxaban 15mg PO daily due to possibility of internal bleed; FOBT positive, hold indefinitely Status: Acute (5) HTN (hypertension) Assessment & Plan: Holding home med of Losartan 25mg as per nephro rec Holding home med of metoprolol 25mg due to hypotension Status: Acute (6) Wound drainage Assessment & Plan: Open wound on right foot at site of amputation Dr Smith of Podiatry saw patient today, recs include: "evaluated and treated with Dr. Barnes Right foot TMA site dressed with xeroform, DSD, kerlix Left foot TMA site dressed with aloe lotion, DSD, kerlix. no surgical intervention planned at this time. will continue to follow while in hospital" Status: Acute (7) Dysuria Assessment & Plan: urinalysis blood 1+, RBC 8 f/u urine culture negative blood culture x1 Status: Acute (8) PVD (peripheral vascular disease) with claudication Assessment & Plan: Venous duplex scan ordered, awaiting report con't home med of cilostazol 100 mg BID Status: Acute (9) Prophylactic measure Assessment & Plan: Prophylactic Measures holding Rivaroxaban 15mg for DVT prophylaxis due to possibility of internal bleed discontinued pepcid 20mg, Infectious Waste Technician ordered protonix 40mg IV for GI prophylaxis Status: Acute <Daniel Ambrocio M - Last Filed: 03/20/17 17:12> Objective - Vital Signs/Intake and Output Vital Signs (last 24 hours): Temp Pulse Resp BP Pulse Ox 97.4 F L 83 16 93/48 L 100 03/20/17 17:07 03/20/17 17:07 03/20/17 17:07 03/20/17 17:07 03/20/17 17:05 Intake and Output: 03/20/17 03/20/17 06:59 18:59 Intake Total 275 0 Output Total 350 500 Balance -75 -500 - Medications Medications: Current Medications Albuterol/Ipratropium (Duoneb 3 Mg/0.5 Mg (3 Ml) Ud) 3 ml INH RQ6 [facility] Last Admin: 03/20/17 14:40 Dose: 3 ml Amiodarone HCl (Cordarone) 200 mg PO DAILY [facility] Last Admin: 03/20/17 10:33 Dose: 200 mg Cilostazol (Pletal) 100 mg PO BID [facility] Last Admin: 03/20/17 10:43 Dose: 100 mg Collagenase (Santyl) 1 gm TOP DAILY [facility] Ferrous Sulfate (Feosol) 325 mg PO BID [facility] Last Admin: 03/20/17 10:34 Dose: 325 mg Gabapentin (Neurontin) 100 mg PO BID [facility] Last Admin: 03/20/17 10:32 Dose: 100 mg Sodium Chloride (Sodium Chloride 0.9%) 1,000 mls @ 60 mls/hr IV .[id number] [facility] Pantoprazole Sodium 80 mg/ (Sodium Chloride) 100 mls @ 10 mls/hr IVP .Q10H [facility] PRN Reason: 8 MG/HR Stop: 03/23/17 15:16 Insulin Aspart (Novolog) 0 unit SC ACHS [facility] PRN Reason: Protocol Last Admin: 03/20/17 17:09 Dose: Not Given Insulin Glargine (Lantus) 10 unit SC DAILY [facility] Last Admin: 03/20/17 10:35 Dose: 10 u Mupirocin (Bactroban Ointment) 0 gm TOP BID [facility] Last Admin: 03/20/17 10:44 Dose: 1 applic Fluticasone/Salmeterol (Advair Diskus 100/50) 1 puff IH RQD [facility] - Labs Labs: 03/20/17 07:02 03/20/17 07:02 PT 24.6 SECONDS (9.7-12.2) H 03/18/17 17:38 INR 2.1 03/18/17 17:38 APTT 33 SECONDS (21-34) 03/18/17 17:38 Attending/Attestation - Attestation I have personally seen and examined this patient.: Yes I have fully participated in the care of the patient.: Yes I have reviewed all pertinent clinical information, including history, physical exam and plan: Yes Notes (Text): 03/20/17 17:10 Patient was seen and examined at bedside with the resident Patient doesn't complain of any shortness of breath but then patient became hypotensive and rapid response was called by patient's RN Patient was evaluated. Given IV fluids, placed on BiPAP. His blood pressure medications were held earlier. Patient still plan to receive 1 unit of PRBC today. I discussed with the heel scourer Dr. Canales. His medications were titrated. I also discussed with railways assistant and patient was transferred to ICU for further management I discussed with the plan of care with the resident and agree with the history and physical and assessment/plan
--- NOTE | 2017-03-20 14:58 | CP.PCM.CON ---
History of Present Illness - History of Present Illness History of Present Illness: This is a 71 year old man admitted with cough, exertional dyspnea. Gi consulted for anemia and positive fecal occult blood test. Patient was previously evaluated by Dr. Vergara for melena in May,, and had EGD 06/19/2016 which showed small gastric ulcers and a duodenal ulcer with a visible vessel. This was treated endoscopically with injection of epinephrine and placement of a hemostatic clip. He has recently been maintained on pantoprazole. He presented to the ER with the above symptoms, and was admitted for exacerbation of CHF. On the second hospital day, the HGB dropped to 6.8 ( repeat 7.0) from the admission value of 8.3. In addition, the stool for occult blood came back positive. Patient denies having nausea, vomiting, difficulty swallowing, heartburn, abdominal pain, constipation, diarrhea, and rectal bleeding. Review of Systems - Review of Systems All systems: reviewed and no additional remarkable complaints except - Constitutional Constitutional: Fatigue, Lethargy, Weight Gain. absent: Fever - Cardiovascular Cardiovascular: Dyspnea, Dyspnea on Exertion, Leg Edema, Paroxysmal Nocturnal Dyspnea. absent: Chest Pain - Respiratory Respiratory: Cough, Dyspnea, Dyspnea on Exertion, Wheezing. absent: Hemoptysis - Gastrointestinal Gastrointestinal: absent: Abdominal Pain, Constipation, Diarrhea, Dysphagia, Heartburn, Nausea, Vomiting - Genitourinary Genitourinary: Dysuria Past Patient History - Infectious Disease Hx of Infectious Diseases: None - Past Medical History & Family History Past Medical History?: Yes - Past Social History Smoking Status: Former Smoker - CARDIAC Hx Cardiac Disorders: Yes (CAD, CABG, CHF (EF 30%)) Hx Atrial Fibrillation: Yes Hx Congestive Heart Failure: Yes Hx Hypercholesterolemia: Yes Hx Hypertension: Yes Hx Mitral Valve Prolapse: Yes Hx Peripheral Edema: Yes - PULMONARY Hx Respiratory Disorders: No - NEUROLOGICAL Hx Neurological Disorder: No - HEENT Hx HEENT Problems: No - RENAL Hx Chronic Kidney Disease: No - ENDOCRINE/METABOLIC Hx Diabetes Mellitus Type 2: Yes - HEMATOLOGICAL/ONCOLOGICAL Hx Blood Disorders: No Hx Anemia: Yes - INTEGUMENTARY Hx Dermatological Problems: Yes Hx Cellulitis: Yes Other/Comment: gangrene left foot - MUSCULOSKELETAL/RHEUMATOLOGICAL Hx Falls: No - GASTROINTESTINAL Hx Gall Bladder Disease: Yes - GENITOURINARY/GYNECOLOGICAL Hx Genitourinary Disorders: No Hx Urinary Tract Infection: Yes (Admitted earlier this year for UTI) - PSYCHIATRIC Hx Substance Use: No - SURGICAL HISTORY Hx Surgeries: Yes Hx Amputation: Yes (left foot toes 2017; right foot toes 2016) Hx Coronary Artery Bypass Graft: Yes (2009) - ANESTHESIA Hx Anesthesia: Yes Hx Anesthesia Reactions: No Hx Malignant Hyperthermia: No Meds Allergies/Adverse Reactions: Allergies Allergy/AdvReac Type Severity Reaction Status Date / Time No Known Allergies Allergy Verified 03/18/17 10:39 - Medications Medications: Current Medications Albuterol/Ipratropium (Duoneb 3 Mg/0.5 Mg (3 Ml) Ud) 3 ml INH RQ6 [facility] Last Admin: 03/20/17 14:40 Dose: 3 ml Amiodarone HCl (Cordarone) 200 mg PO DAILY [facility] Last Admin: 03/20/17 10:33 Dose: 200 mg Cilostazol (Pletal) 100 mg PO BID [facility] Last Admin: 03/20/17 10:43 Dose: 100 mg Collagenase (Santyl) 1 gm TOP DAILY [facility] Ferrous Sulfate (Feosol) 325 mg PO BID [facility] Last Admin: 03/20/17 10:34 Dose: 325 mg Gabapentin (Neurontin) 100 mg PO BID [facility] Last Admin: 03/20/17 10:32 Dose: 100 mg Insulin Aspart (Novolog) 0 unit SC ACHS [facility] PRN Reason: Protocol Last Admin: 03/20/17 14:44 Dose: Not Given Insulin Glargine (Lantus) 10 unit SC DAILY [facility] Last Admin: 03/20/17 10:35 Dose: 10 u Mupirocin (Bactroban Ointment) 0 gm TOP BID [facility] Last Admin: 03/20/17 10:44 Dose: 1 applic Fluticasone/Salmeterol (Advair Diskus 100/50) 1 puff IH RQD [facility] Physical Exam - Constitutional Appears: No Acute Distress - Head Exam Head Exam: ATRAUMATIC, NORMOCEPHALIC - Eye Exam Eye Exam: EOMI, PERRL - Neck Exam Neck exam: Negative for: Lymphadenopathy, Thyromegaly - Respiratory Exam Respiratory Exam: NORMAL BREATHING PATTERN. absent: Rales, Rhonchi, Wheezes - Cardiovascular Exam Cardiovascular Exam: REGULAR RHYTHM, +S1, +S2. absent: Gallop, Rubs, Systolic Murmur - GI/Abdominal Exam GI & Abdominal Exam: Normal Bowel Sounds, Soft. absent: Mass, Organomegaly, Tenderness - Rectal Exam Rectal Exam: NORMAL INSPECTION. absent: Black Stool - Exam Exam: Scrotal Swelling - Extremities Exam Extremities exam: Positive for: pedal edema Results - Vital Signs Recent Vital Signs: Last Vital Signs Temp 97.6 F 03/20/17 13:13 Pulse 77 03/20/17 13:13 Resp 18 03/20/17 12:35 BP 84/46 L 03/20/17 13:13 Pulse Ox 98 03/20/17 12:35 - Labs Result Diagrams: 03/20/17 07:02 03/20/17 07:02 Labs: Laboratory Results - last 24 hr 03/18/17 03/19/17 03/19/17 17:38 11:07 17:18 WBC RBC Hgb Hct MCV MCH MCHC RDW Plt Count MPV Neut % (Auto) Lymph % (Auto) [place] % (Auto) Eos % (Auto) Baso % (Auto) Neut # Lymph # [place] # Eos # Baso # Neutrophils % (Manual) Lymphocytes % (Manual) Monocytes % (Manual) Platelet Estimate Poikilocytosis (manual Anisocytosis (manual) Microcytosis (manual) Macrocytosis (manual) Ovalocytes [place] Cells PT 24.6 H INR 2.1 APTT 33 Sodium Potassium Chloride Carbon Dioxide Anion Gap BUN Creatinine Est GFR ( Amer) Est GFR (Non-Af Amer) POC Glucose (mg/dL) Random Glucose Hemoglobin A1c Calcium Phosphorus Magnesium Total Bilirubin AST ALT Alkaline Phosphatase Total Protein Albumin Globulin Albumin/Globulin Ratio Urine Color Urine Clarity Urine pH Ur Specific [place] Urine Protein Urine Glucose (UA) Urine Ketones Urine Blood Urine Nitrate Urine Bilirubin Urine Urobilinogen Ur Leukocyte Esterase Urine WBC (Auto) Urine RBC (Auto) Ur Random Sodium Stool Occult Blood Positive H Blood Type O POSITIVE Antibody Screen Negative 03/19/17 03/19/17 03/20/17 17:48 21:07 06:21 WBC RBC Hgb Hct MCV MCH MCHC RDW Plt Count MPV Neut % (Auto) Lymph % (Auto) [place] % (Auto) Eos % (Auto) Baso % (Auto) Neut # Lymph # [place] # Eos # Baso # Neutrophils % (Manual) Lymphocytes % (Manual) Monocytes % (Manual) Platelet Estimate Poikilocytosis (manual Anisocytosis (manual) Microcytosis (manual) Macrocytosis (manual) Ovalocytes [place] Cells PT INR APTT Sodium Potassium Chloride Carbon Dioxide Anion Gap BUN Creatinine Est GFR ( Amer) Est GFR (Non-Af Amer) POC Glucose (mg/dL) 253 H 250 H 199 H Random Glucose Hemoglobin A1c Calcium Phosphorus Magnesium Total Bilirubin AST ALT Alkaline Phosphatase Total Protein Albumin Globulin Albumin/Globulin Ratio Urine Color Urine Clarity Urine pH Ur Specific [place] Urine Protein Urine Glucose (UA) Urine Ketones Urine Blood Urine Nitrate Urine Bilirubin Urine Urobilinogen Ur Leukocyte Esterase Urine WBC (Auto) Urine RBC (Auto) Ur Random Sodium Stool Occult Blood Blood Type Antibody Screen 03/20/17 03/20/17 03/20/17 07:02 07:02 07:02 WBC 7.1 RBC 2.82 L Hgb 7.5 L Hct 23.6 L MCV 83.6 MCH 26.7 L MCHC 31.9 L RDW 17.9 H Plt Count 322 MPV 8.1 Neut % (Auto) 87.9 H Lymph % (Auto) 6.2 L [place] % (Auto) 5.8 Eos % (Auto) 0.0 Baso % (Auto) 0.1 Neut # 6.2 Lymph # 0.4 L [place] # 0.4 Eos # 0.0 Baso # 0.0 Neutrophils % (Manual) 89 H Lymphocytes % (Manual) 6 L Monocytes % (Manual) 5 Platelet Estimate Normal Poikilocytosis (manual Slight Anisocytosis (manual) Slight Microcytosis (manual) Slight Macrocytosis (manual) Slight Ovalocytes Slight [place] Cells Slight PT INR APTT Sodium 141 Potassium 3.5 L Chloride 106 Carbon Dioxide 26 Anion Gap 12 BUN 67 H Creatinine 1.8 H Est GFR ( Amer) 45 Est GFR (Non-Af Amer) 37 POC Glucose (mg/dL) Random Glucose 171 H Hemoglobin A1c 7.2 H Calcium 8.4 L Phosphorus 4.6 H Magnesium 2.0 Total Bilirubin 1.0 AST 11 L D ALT 11 L D Alkaline Phosphatase 65 Total Protein 6.1 L Albumin 2.5 L Globulin 3.6 Albumin/Globulin Ratio 0.7 L Urine Color Urine Clarity Urine pH Ur Specific [place] Urine Protein Urine Glucose (UA) Urine Ketones Urine Blood Urine Nitrate Urine Bilirubin Urine Urobilinogen Ur Leukocyte Esterase Urine WBC (Auto) Urine RBC (Auto) Ur Random Sodium Stool Occult Blood Blood Type Antibody Screen 03/20/17 03/20/1717 08:00 08:05 11:28 WBC RBC Hgb Hct MCV MCH MCHC RDW Plt Count MPV Neut % (Auto) Lymph % (Auto) [place] % (Auto) Eos % (Auto) Baso % (Auto) Neut # Lymph # [place] # Eos # Baso # Neutrophils % (Manual) Lymphocytes % (Manual) Monocytes % (Manual) Platelet Estimate Poikilocytosis (manual Anisocytosis (manual) Microcytosis (manual) Macrocytosis (manual) Ovalocytes [place] Cells PT INR APTT Sodium Potassium Chloride Carbon Dioxide Anion Gap BUN Creatinine Est GFR ( Amer) Est GFR (Non-Af Amer) POC Glucose (mg/dL) 224 H Random Glucose Hemoglobin A1c Calcium Phosphorus Magnesium Total Bilirubin AST ALT Alkaline Phosphatase Total Protein Albumin Globulin Albumin/Globulin Ratio Urine Color Yellow Urine Clarity Clear Urine pH 5.0 Ur Specific [place] 1.010 Urine Protein Negative Urine Glucose (UA) Normal Urine Ketones Negative Urine Blood 1+ H Urine Nitrate Negative Urine Bilirubin Negative Urine Urobilinogen Normal Ur Leukocyte Esterase Neg Urine WBC (Auto) 1 Urine RBC (Auto) 8 H Ur Random Sodium 54 Stool Occult Blood Blood Type Antibody Screen Assessment & Plan - Assessment and Plan (Free Text) Assessment: Patient with history of peptic ulcer disease, on Xarelto and Pletal, was admitted with anemia, HGB 8.3, and a drop in the hemoglobin to 6.8 was noted without overt bleeding, though the stool was positive for occult blood. At present, he is in ICU after sustaining a hypotensive episode on 6T. The stool is brown, and the NG aspirate is negative for blood and bile. Patient will receive and addition unit of PRBC. Recommend CT scan to rule out retroperitoneal bleed. EGD in AM.
[2017-03-20] MEDS ORDERED: Sodium Chloride 0.9% 1,000 ML IV SCH (15:15)
--- NOTE | 2017-03-20 15:20 | CP.PCM.CON ---
History of Present Illness - History of Present Illness History of Present Illness: 71 M. PMHx of CAD, CABG, AFib, DM w/ b/l toe amp, PVD, HTN, chronic anemia. Patient presented with productive cough times several days. Admitted with acute on chronic anemia, guiaic positive and mild hypotension. Patient became more hypotensive today and Rapid Response was called. Review of Systems - Review of Systems All systems: reviewed and no additional remarkable complaints except Past Patient History - Infectious Disease Hx of Infectious Diseases: None - Past Medical History & Family History Past Medical History?: Yes - Past Social History Smoking Status: Former Smoker - CARDIAC Hx Cardiac Disorders: Yes (CAD, CABG, CHF (EF 30%)) Hx Atrial Fibrillation: Yes Hx Congestive Heart Failure: Yes Hx Hypercholesterolemia: Yes Hx Hypertension: Yes Hx Mitral Valve Prolapse: Yes Hx Peripheral Edema: Yes - PULMONARY Hx Respiratory Disorders: No - NEUROLOGICAL Hx Neurological Disorder: No - HEENT Hx HEENT Problems: No - RENAL Hx Chronic Kidney Disease: No - ENDOCRINE/METABOLIC Hx Diabetes Mellitus Type 2: Yes - HEMATOLOGICAL/ONCOLOGICAL Hx Blood Disorders: No Hx Anemia: Yes - INTEGUMENTARY Hx Dermatological Problems: Yes Hx Cellulitis: Yes Other/Comment: gangrene left foot - MUSCULOSKELETAL/RHEUMATOLOGICAL Hx Falls: No - GASTROINTESTINAL Hx Gall Bladder Disease: Yes - GENITOURINARY/GYNECOLOGICAL Hx Genitourinary Disorders: No Hx Urinary Tract Infection: Yes (Admitted earlier this year for UTI) - PSYCHIATRIC Hx Substance Use: No - SURGICAL HISTORY Hx Surgeries: Yes Hx Amputation: Yes (left foot toes 2017; right foot toes 2016) Hx Coronary Artery Bypass Graft: Yes (2009) - ANESTHESIA Hx Anesthesia: Yes Hx Anesthesia Reactions: No Hx Malignant Hyperthermia: No Meds Allergies/Adverse Reactions: Allergies Allergy/AdvReac Type Severity Reaction Status Date / Time No Known Allergies Allergy Verified 03/18/17 10:39 - Medications Medications: Current Medications Albuterol/Ipratropium (Duoneb 3 Mg/0.5 Mg (3 Ml) Ud) 3 ml INH RQ6 [facility] Last Admin: 03/20/17 14:40 Dose: 3 ml Amiodarone HCl (Cordarone) 200 mg PO DAILY [facility] Last Admin: 03/20/17 10:33 Dose: 200 mg Cilostazol (Pletal) 100 mg PO BID [facility] Last Admin: 03/20/17 10:43 Dose: 100 mg Collagenase (Santyl) 1 gm TOP DAILY [facility] Ferrous Sulfate (Feosol) 325 mg PO BID [facility] Last Admin: 03/20/17 10:34 Dose: 325 mg Gabapentin (Neurontin) 100 mg PO BID [facility] Last Admin: 03/20/17 10:32 Dose: 100 mg Sodium Chloride (Sodium Chloride 0.9%) 1,000 mls @ 60 mls/hr IV .[id number] [facility] Pantoprazole Sodium 80 mg/ (Sodium Chloride) 100 mls @ 10 mls/hr IVP .Q10H [facility] PRN Reason: 8 MG/HR Stop: 03/23/17 15:16 Insulin Aspart (Novolog) 0 unit SC ACHS [facility] PRN Reason: Protocol Last Admin: 03/20/17 14:44 Dose: Not Given Insulin Glargine (Lantus) 10 unit SC DAILY [facility] Last Admin: 03/20/17 10:35 Dose: 10 u Mupirocin (Bactroban Ointment) 0 gm TOP BID [facility] Last Admin: 03/20/17 10:44 Dose: 1 applic Fluticasone/Salmeterol (Advair Diskus 100/50) 1 puff IH RQD [facility] Results - Vital Signs Recent Vital Signs: Last Vital Signs Temp 97.6 F 03/20/17 13:13 Pulse 77 03/20/17 13:13 Resp 18 03/20/17 12:35 BP 84/46 L 03/20/17 13:13 Pulse Ox 98 03/20/17 12:35 - Labs Result Diagrams: 03/20/17 07:02 03/20/17 07:02 Labs: Laboratory Results - last 24 hr 03/18/17 03/19/17 03/19/17 17:38 11:07 17:18 WBC RBC Hgb Hct MCV MCH MCHC RDW Plt Count MPV Neut % (Auto) Lymph % (Auto) [place] % (Auto) Eos % (Auto) Baso % (Auto) Neut # Lymph # [place] # Eos # Baso # Neutrophils % (Manual) Lymphocytes % (Manual) Monocytes % (Manual) Platelet Estimate Poikilocytosis (manual Anisocytosis (manual) Microcytosis (manual) Macrocytosis (manual) Ovalocytes [place] Cells PT 24.6 H INR 2.1 APTT 33 Sodium Potassium Chloride Carbon Dioxide Anion Gap BUN Creatinine Est GFR ( Amer) Est GFR (Non-Af Amer) POC Glucose (mg/dL) Random Glucose Hemoglobin A1c Calcium Phosphorus Magnesium Total Bilirubin AST ALT Alkaline Phosphatase Total Protein Albumin Globulin Albumin/Globulin Ratio Urine Color Urine Clarity Urine pH Ur Specific [place] Urine Protein Urine Glucose (UA) Urine Ketones Urine Blood Urine Nitrate Urine Bilirubin Urine Urobilinogen Ur Leukocyte Esterase Urine WBC (Auto) Urine RBC (Auto) Ur Random Sodium Stool Occult Blood Positive H Blood Type O POSITIVE Antibody Screen Negative 03/19/17 03/19/17 03/20/17 17:48 21:07 06:21 WBC RBC Hgb Hct MCV MCH MCHC RDW Plt Count MPV Neut % (Auto) Lymph % (Auto) [place] % (Auto) Eos % (Auto) Baso % (Auto) Neut # Lymph # [place] # Eos # Baso # Neutrophils % (Manual) Lymphocytes % (Manual) Monocytes % (Manual) Platelet Estimate Poikilocytosis (manual Anisocytosis (manual) Microcytosis (manual) Macrocytosis (manual) Ovalocytes [place] Cells PT INR APTT Sodium Potassium Chloride Carbon Dioxide Anion Gap BUN Creatinine Est GFR ( Amer) Est GFR (Non-Af Amer) POC Glucose (mg/dL) 253 H 250 H 199 H Random Glucose Hemoglobin A1c Calcium Phosphorus Magnesium Total Bilirubin AST ALT Alkaline Phosphatase Total Protein Albumin Globulin Albumin/Globulin Ratio Urine Color Urine Clarity Urine pH Ur Specific [place] Urine Protein Urine Glucose (UA) Urine Ketones Urine Blood Urine Nitrate Urine Bilirubin Urine Urobilinogen Ur Leukocyte Esterase Urine WBC (Auto) Urine RBC (Auto) Ur Random Sodium Stool Occult Blood Blood Type Antibody Screen 03/20/17 03/20/17 03/20/17 07:02 07:02 07:02 WBC 7.1 RBC 2.82 L Hgb 7.5 L Hct 23.6 L MCV 83.6 MCH 26.7 L MCHC 31.9 L RDW 17.9 H Plt Count 322 MPV 8.1 Neut % (Auto) 87.9 H Lymph % (Auto) 6.2 L [place] % (Auto) 5.8 Eos % (Auto) 0.0 Baso % (Auto) 0.1 Neut # 6.2 Lymph # 0.4 L [place] # 0.4 Eos # 0.0 Baso # 0.0 Neutrophils % (Manual) 89 H Lymphocytes % (Manual) 6 L Monocytes % (Manual) 5 Platelet Estimate Normal Poikilocytosis (manual Slight Anisocytosis (manual) Slight Microcytosis (manual) Slight Macrocytosis (manual) Slight Ovalocytes Slight [place] Cells Slight PT INR APTT Sodium 141 Potassium 3.5 L Chloride 106 Carbon Dioxide 26 Anion Gap 12 BUN 67 H Creatinine 1.8 H Est GFR ( Amer) 45 Est GFR (Non-Af Amer) 37 POC Glucose (mg/dL) Random Glucose 171 H Hemoglobin A1c 7.2 H Calcium 8.4 L Phosphorus 4.6 H Magnesium 2.0 Total Bilirubin 1.0 AST 11 L D ALT 11 L D Alkaline Phosphatase 65 Total Protein 6.1 L Albumin 2.5 L Globulin 3.6 Albumin/Globulin Ratio 0.7 L Urine Color Urine Clarity Urine pH Ur Specific [place] Urine Protein Urine Glucose (UA) Urine Ketones Urine Blood Urine Nitrate Urine Bilirubin Urine Urobilinogen Ur Leukocyte Esterase Urine WBC (Auto) Urine RBC (Auto) Ur Random Sodium Stool Occult Blood Blood Type Antibody Screen 03/20/17 03/20/17 03/20/17 08:00 08:05 11:28 WBC RBC Hgb Hct MCV MCH MCHC RDW Plt Count MPV Neut % (Auto) Lymph % (Auto) [place] % (Auto) Eos % (Auto) Baso % (Auto) Neut # Lymph # [place] # Eos # Baso # Neutrophils % (Manual) Lymphocytes % (Manual) Monocytes % (Manual) Platelet Estimate Poikilocytosis (manual Anisocytosis (manual) Microcytosis (manual) Macrocytosis (manual) Ovalocytes [place] Cells PT INR APTT Sodium Potassium Chloride Carbon Dioxide Anion Gap BUN Creatinine Est GFR ( Amer) Est GFR (Non-Af Amer) POC Glucose (mg/dL) 224 H Random Glucose Hemoglobin A1c Calcium Phosphorus Magnesium Total Bilirubin AST ALT Alkaline Phosphatase Total Protein Albumin Globulin Albumin/Globulin Ratio Urine Color Yellow Urine Clarity Clear Urine pH 5.0 Ur Specific [place] 1.010 Urine Protein Negative Urine Glucose (UA) Normal Urine Ketones Negative Urine Blood 1+ H Urine Nitrate Negative Urine Bilirubin Negative Urine Urobilinogen Normal Ur Leukocyte Esterase Neg Urine WBC (Auto) 1 Urine RBC (Auto) 8 H Ur Random Sodium 54 Stool Occult Blood Blood Type Antibody Screen Assessment & Plan - Assessment and Plan (Free Text) Assessment: 71 M. PMHx of CAD, CABG, AFib, DM w/ b/l toe amp, PVD, HTN, chronic anemia. Patient presented with productive cough times several days. Admitted with acute on chronic anemia, guiaic positive and mild hypotension. Patient became more hypotensive today and Rapid Response was called. Neuro: Alert and oriented 3 Pulm: No acute issues, breathing spontaneously on 2 L nasal cannula. CV: Relatively hypotensive for her normally hypertensive patient. Reason for hypertension unclear. Patient has chronic systolic congestive heart failure (EF 30-35%, last echo 11/22/2016). Getting repeat echo to see if patient's ejection fraction has become worse, trending troponins to rule out DC. Hem: Acute on chronic anemia, and sources of bleeding. We'll transfuse 2 units PRBC. Will obtain CT abdomen and pelvis to rule out abdominal or retroperitoneal bleed. Renal: Acute renal failure, NS@ 60 Endo: DM type II, short acting insulin sliding scale for coverage. GI: Nothing by mouth. NG tube placed to intermittent suction, minimal bloody output. GI consulted, Dr. De Dios, for possible EGD. ID: No acute issues. DVT proph - SCDs, holding anticoagulation with possibility of current bleed. GI proph - Protonix drip allen for strict I/O's during acute illness Code status - full code Critical Care Time spent 35 minutes Multi-disciplinary rounds were performed with house staff, nursing, speech therapy, respiratory therapy, pharmacy and nutrition with integrated input from the primary team/attending and other consulting services. The documented time is cumulative and includes review of patient data/exams/labs/chart review and examination of the patient on rounds and throughout the day; time is exclusive of any procedures or teaching time.
--- NOTE | 2017-03-20 15:42 | RAD ---
HISTORY: CHF COMPARISON: 03/19/2017 FINDINGS: LUNGS: Patchy opacity at right base. Nonspecific. PLEURA: No significant pleural effusion identified, no pneumothorax apparent. CARDIOVASCULAR: Normal heart size. Pulmonary vascular congestive change. Right PICC catheter unchanged. Sternotomy wires. OSSEOUS STRUCTURES: No significant abnormalities. VISUALIZED UPPER ABDOMEN: Normal. OTHER FINDINGS: None. IMPRESSION: Congestive change. Right basilar opacity. Possible pulmonary edema.
--- NOTE | 2017-03-20 16:10 | CT ---
PROCEDURE: CT Abdomen and Pelvis without intravenous contrast HISTORY: r/o abdominal or retroperitoneal bleed COMPARISON: 11/21/2016 TECHNIQUE: Without contrast.. Contrast Dose: 0 Radiation dose: Total exam DLP = 1178.08 mGy-cm. This CT exam was performed using one or more of the following dose reduction techniques: Automated exposure control, adjustment of the mA and/or kV according to patient size, and/or use of iterative reconstruction technique. FINDINGS: Please note that evaluation of the abdomen is limited due to the presence of extensive ascites, the absence of oral contrast administration and generalized anasarca. There is also respiratory motion artifact present. LOWER THORAX: Small bilateral pleural effusion. Bilateral lower lobe subsegmental/ compressive atelectasis. Cardiomegaly. Mitral annular calcification. CABG. Nasogastric tube noted extending to the gastric lumen. LIVER: Unremarkable. No gross lesion or ductal dilatation. GALLBLADDER AND BILE DUCTS: Cholelithiasis without evidence of cholecystitis. PANCREAS: Grossly limited evaluation. No mass identified. SPLEEN: Unremarkable. ADRENALS: Unremarkable. No mass. KIDNEYS AND URETERS: Mild left renal atrophy with diffuse cortical thinning. No renal mass or calculus identified. No evidence of hydronephrosis. VASCULATURE: Unremarkable. No aortic aneurysm. BOWEL: Sigmoid diverticulosis. There is circumferential mural thickening of the descending colon which may be artifactual due to lack of distension. However, this is also seen involving the splenic flexure. Findings concerning for a nonspecific colitis. Sigmoid diverticulosis without evidence of diverticulitis. Incidentally noted is some high attenuation material seen within the distal transverse colon, splenic flexure and descending/sigmoid colon. This is nonspecific. There is no generalized oral contrast present. No bowel obstruction. APPENDIX: Not identified PERITONEUM: Extensive ascites. LYMPH NODES: Unremarkable. No enlarged lymph nodes. BLADDER: Mild bladder wall thickening, nonspecific. Please correlate with urinalysis for possible cystitis. REPRODUCTIVE: Normal prostate BONES: No acute fracture. OTHER FINDINGS: Generalized anasarca. IMPRESSION: Extensive ascites. Generalized anasarca. No evidence of intraperitoneal hemorrhage or retroperitoneal hemorrhage. Evaluation for acute intraperitoneal hemorrhage is limited by the absence of intravenous contrast. Possible nonspecific colitis involving the splenic flexure and descending colon. Sigmoid diverticulosis without evidence of diverticulitis. Cholelithiasis. Nasogastric tube. Small bilateral pleural effusion and bilateral lower lobe subsegmental atelectasis.
[2017-03-20] MEDS: Pantoprazole 80 MG in Sodium Chloride 0.9% 100 ML IVP SCH (17:14)
--- NOTE | 2017-03-20 19:34 | CARD ---
APPROVED REPORT EKG Measurement Heart [id number] <Conclusion> Wide QRS rhythm Left axis deviation Nonspecific intraventricular block Possible Lateral infarct, age undetermined Inferior infarct, age undetermined Abnormal ECG
[2017-03-20] MEDS ORDERED: Potassium Chloride 20 MEQ in Dextrose 5%/0.9% NS 1,000 ML IV SCH (22:15)
[2017-03-21] MEDS: (Novolog) Insulin Aspart, Recombinant 100 u/ml 10 ml vial SC SCH ×4 (00:35→19:01)
[2017-03-21] MEDS: Albuterol-Ipratrop 3 mg / 0.5 (3 ml) UD INH SCH ×4 (01:39→19:51)
[2017-03-21] MEDS: Pantoprazole 80 MG in Sodium Chloride 0.9% 100 ML IVP SCH (02:00)
[2017-03-21 06:26] LABS: BASO % 0.1 % (0.0-2.0); EOS # 0.1 K/uL (0.0-0.7); EOS % 1.1 % (0.0-4.0); HEMOGLOBIN 9.6 g/dL (12.0-18.0); LYMPH # 0.7 K/uL (1.0-4.3); LYMPH % 9.9 % (20.0-40.0); MEAN CELL VOLUME 84.1 fL (80.0-94.0); MEAN CORPUSCULAR HEMOGLOBIN 27.1 pg (27.0-31.0); MEAN CORPUSCULAR HGB CONC 32.2 g/dL (33.0-37.0); MEAN PLATELET VOLUME 7.8 fL (7.2-11.7); MONO # 0.5 K/uL (0.0-0.8); MONO % 6.1 % (0.0-10.0); NEUT # 6.2 K/uL (1.8-7.0); NEUT % 82.8 % (50.0-75.0); PLATELET COUNT 344 K/uL (130-400); RBC 3.55 Mil/uL (4.40-5.90); RED CELL DISTRIBUTION WIDTH 17.1 % (11.5-14.5); WHITE BLOOD COUNT 7.5 K/uL (4.8-10.8)
[2017-03-21 06:45] LABS: ALBUMIN 2.7 g/dL (3.5-5.0)
[2017-03-21 06:48] LABS: ALB/GLOB RATIO 0.8 (1.0-2.1)
[2017-03-21 06:49] LABS: CALCIUM 7.6 mg/dl (8.6-10.4)
[2017-03-21 06:50] LABS: MAGNESIUM 1.8 mg/dL (1.6-2.3)
[2017-03-21 08:27] LABS: ANISOCYTOSIS SLIGHT; BASOPHIL 1 % (0-2); HYPOCHROMIC SLIGHT; LYMPHOCYTE 8 % (20-40); MONOCYTE 5 % (0-10); NEUTROPHIL 86 % (50-75); OVALOCYTES SLIGHT; PLATELET ESTIMATE NORMAL (NORMAL); POIKILOCYTOSIS SLIGHT; TOTAL CELLS COUNTED 100
[2017-03-21] MEDS: (Lantus) Insulin Glargine, Recombinant SC SCH (09:59)
[2017-03-21] MEDS: Cilostazol 100 mg Tab UD PO SCH ×2 (09:59→19:02)
[2017-03-21] MEDS: Collagenase 250 Units/gm Ointment(30 gm) TOP SCH (11:00)
--- NOTE | 2017-03-21 11:09 | CP.PCM.PN ---
Subjective - Date & Time of Evaluation Date of Evaluation: 03/21/17 Time of Evaluation: 11:00 - Subjective Subjective: Patient seen bedside in ICU resting in NAD. Patient seems drowsy, unable to stay awake for questioning at this time. Dressings to LE clean, dry and intact. Objective - Vital Signs/Intake and Output Vital Signs (last 24 hours): Temp Pulse Resp BP Pulse Ox 97.9 F 89 13 105/64 100 03/21/17 08:00 03/21/17 08:02 03/21/17 08:02 03/21/17 10:38 03/21/17 08:02 Intake and Output: 03/21/17 03/21/17 06:59 18:59 Intake Total 730 60 Output Total 913 83 Balance -183 -23 - Medications Medications: Current Medications Albuterol/Ipratropium (Duoneb 3 Mg/0.5 Mg (3 Ml) Ud) 3 ml INH RQ6 [facility] Last Admin: 03/21/17 01:39 Dose: 3 ml Amiodarone HCl (Cordarone) 200 mg PO DAILY [facility] Last Admin: 03/20/17 10:33 Dose: 200 mg Cilostazol (Pletal) 100 mg PO BID [facility] Last Admin: 03/21/17 09:59 Dose: Not Given Collagenase (Santyl) 1 gm TOP DAILY [facility] Ferrous Sulfate (Feosol) 325 mg PO BID [facility] Last Admin: 03/21/17 09:58 Dose: Not Given Gabapentin (Neurontin) 100 mg PO BID [facility] Last Admin: 03/21/17 09:58 Dose: Not Given Potassium Chloride 20 meq/ (Dextrose/Sodium Chloride) 1,010 mls @ 60 mls/hr IV .[id number] [facility] Last Admin: 03/20/17 22:30 Dose: 60 mls/hr Pantoprazole Sodium 80 mg/ (Sodium Chloride) 100 mls @ 10 mls/hr IV .Q10H [facility] PRN Reason: 8 MG/HR Stop: 03/23/17 15:16 Potassium Chloride (Potassium Chloride 20 Meq/100 Ml) 20 meq in 100 mls @ 50 mls/hr IVPB ONCE ONE Stop: 03/21/17 11:59 Last Admin: 03/21/17 10:09 Dose: 50 mls/hr Insulin Aspart (Novolog) 0 unit SC Q6H [facility] PRN Reason: Protocol Last Admin: 03/21/17 06:43 Dose: Not Given Insulin Glargine (Lantus) 10 unit SC DAILY [facility] Last Admin: 03/21/17 09:59 Dose: Not Given Mupirocin (Bactroban Ointment) 0 gm TOP BID [facility] Last Admin: 03/20/17 17:31 Dose: Not Given Fluticasone/Salmeterol (Advair Diskus 100/50) 1 puff IH RQD [facility] - Labs Labs: 03/21/17 06:20 03/21/17 06:22 PT 24.6 SECONDS (9.7-12.2) H 03/18/17 17:38 INR 2.1 03/18/17 17:38 APTT 33 SECONDS (21-34) 03/18/17 17:38 - Constitutional Appears: No Acute Distress - Extremities Exam Additional comments: Dressings clean, dry and intact B/L. Assessment and Plan - Assessment and Plan (Free Text) Assessment: 71 y/o male with B/L TMA Plan: evaluated bedsides, labs and chart reviewed. Discussed with Dr. Barnes Dressings left intact, to be changed tomorrow. no surgical intervention planned at this time. will continue to follow while in hospital.
--- NOTE | 2017-03-21 13:02 | CP.CCUPN ---
<Beth Mora - Last Filed: 03/21/17 15:31> CCU Subjective - Physician Review Subjective (Free Text): 03/21/17 13:52 Patient seen and examined at bedside. Nursing reported no acute events overnight. Patient received 3U PRBC total yesterday and was NPO overnight for EGD with Dr. Ag this AM. Patient had 1 small BM which was nonbloody nonmelanotic. NGT is on intermittent suction and drained ~100cc nonbloody bilious fluid. Patient denied fever, chills, headache, dizziness, chest pain, palpitations, abd pain, nausea, vomiting, bowel/bladder complaints, pain/ swelling in his legs b/l. Patient is complaining of a cough but reports that he is unable to cough anything up. He also has some SOB when talking. Patient is eager to eat. CCU Objective - Vital Signs / Intake & Output Vital Signs (Last 4 hours): Vital Signs BP 03/21/17 10:38 105/64 Intake and Output (Last 8hrs): Intake & Output 03/20/17 03/21/17 03/21/17 22:59 06:59 14:59 Intake Total 645 480 60 Output Total 249 664 83 Balance 396 -184 -23 Weight 177 lb Intake: Intake, IV Amount 320 480 60 Right PICC 300 480 60 Right PICC #2 20 Blood Product 325 Red Blood Cells Cpd As1 325 Lr Unit [id number] Output: Urine 249 664 83 Urine, Voided 249 664 83 - Physical Exam Head: Positive for: Atraumatic, Normocephalic Pupils: Positive for: PERRL Extroacular Muscles: Positive for: EOMI Conjunctiva: Positive for: Normal. Negative for: Injected, Icteric Mouth: Positive for: Moist Mucous Membranes Nose (External): Positive for: Other (NGT in place) Neck: Positive for: Normal Range of Motion Respiratory/Chest: Positive for: Wheezes, Rhonchi. Negative for: Respiratory Distress, Accessory Muscle Use, Rales Cardiovascular: Positive for: Murmurs (L sternal border), Normal S1, S2, Irregular Rhythm. Negative for: Regular Rate and Rhythm Abdomen: Positive for: Distention, Normal Bowel Sounds. Negative for: Tenderness Upper Extremity: Positive for: Normal Inspection, Other (R arm PICC line in place). Negative for: Edema Lower Extremity: Positive for: Edema (+3 to knees b/l). Negative for: Normal Inspection Neurological: Positive for: GCS=15, CN II-XII Intact, Speech Normal Skin: Positive for: Warm, Dry, Normal Color Psychiatric: Positive for: Alert, Oriented x 3, Normal Insight, Normal Concentration - Medications Active Medications: Active Medications Generic Name Dose Route Start Last Admin Trade Name Freq PRN Reason Stop Dose Admin Albuterol/Ipratropium 3 ml 03/18/17 20:00 03/21/17 09:00 Duoneb 3 Mg/0.5 Mg (3 Ml) Ud INH Not Given RQ6 AWAIS Amiodarone HCl 200 mg 03/19/17 10:00 03/20/17 10:33 Cordarone PO 200 mg DAILY AWAIS Administration Cilostazol 100 mg 03/18/17 18:00 03/21/17 09:59 Pletal PO Not Given BID AWAIS Collagenase 1 gm 03/21/17 10:00 Santyl TOP DAILY AWAIS Ferrous Sulfate 325 mg 03/18/17 18:00 03/21/17 09:58 Feosol PO Not Given BID AWAIS Gabapentin 100 mg 03/18/17 18:00 03/21/17 09:58 Neurontin PO Not Given BID AWAIS Potassium Chloride 20 meq/ 1,010 mls @ 60 mls/hr 03/20/17 22:15 03/20/17 22: 30 Dextrose/Sodium Chloride IV 60 mls/hr .[id number] AWAIS Administration Pantoprazole Sodium 80 mg/ 100 mls @ 10 mls/hr 03/21/17 11:15 Sodium Chloride IV 03/23/17 15:16 .Q10H AWAIS 8 MG/HR Insulin Aspart 0 unit 03/20/17 18:15 03/21/17 06:43 Novolog SC Not Given Q6H [facility] Protocol Insulin Glargine 10 unit 03/19/17 10:00 03/21/17 09:59 Lantus SC Not Given DAILY AWAIS Mupirocin 0 gm 03/18/17 18:00 03/20/17 17:31 Bactroban Ointment TOP Not Given BID AWAIS Fluticasone/Salmeterol 1 puff 03/18/17 16:45 Advair Diskus 100/50 IH RQD AWAIS - Patient Studies Lab Studies: Lab Studies 03/21/17 03/21/17 03/21/17 Range/Units 06:22 06:22 06:20 WBC 7.5 (4.8-10.8) K/uL RBC 3.55 L (4.40-5.90) Mil/uL Hgb 9.6 L D (12.0-18.0) g/dL Hct 29.9 L (35.0-51.0) % MCV 84.1 (80.0-94.0) fL MCH 27.1 (27.0-31.0) pg MCHC 32.2 L (33.0-37.0) g/dL RDW 17.1 H (11.5-14.5) % Plt Count 344 (130-400) K/uL MPV 7.8 (7.2-11.7) fL Neut % (Auto) 82.8 H (50.0-75.0) % Lymph % (Auto) 9.9 L (20.0-40.0) % Mcpherson % (Auto) 6.1 (0.0-10.0) % Eos % (Auto) 1.1 (0.0-4.0) % Baso % (Auto) 0.1 (0.0-2.0) % Neut # 6.2 (1.8-7.0) K/uL Lymph # 0.7 L (1.0-4.3) K/uL Mcpherson # 0.5 (0.0-0.8) K/uL Eos # 0.1 (0.0-0.7) K/uL Baso # 0.0 (0.0-0.2) K/uL Neutrophils % (Manual) 86 H (50-75) % Lymphocytes % (Manual) 8 L (20-40) % Monocytes % (Manual) 5 (0-10) % Basophils % (Manual) 1 (0-2) % Platelet Estimate Normal (NORMAL) Hypochromasia (manual) Slight Poikilocytosis (manual Slight Anisocytosis (manual) Slight Ovalocytes Slight Haptoglobin (43-212) mg/dL Sodium 139 (132-148) mmol/L Potassium 3.4 L (3.6-5.2) mmol/L Chloride 103 (98-107) mmol/L Carbon Dioxide 24 (22-30) mmol/L Anion Gap 15 (10-20) BUN 61 H (9-20) mg/dL Creatinine 1.5 (0.8-1.5) MG/DL Est GFR ( Amer) 56 Est GFR (Non-Af Amer) 46 POC Glucose (mg/dL) (65-110) mg/dL Random Glucose 108 (75-110) mg/dL Calcium 7.6 L (8.6-10.4) mg/dl Phosphorus 3.9 (2.5-4.5) mg/dL Magnesium 1.8 (1.6-2.3) mg/dL Total Bilirubin 1.2 (0.2-1.3) mg/dL AST 10 L (17-59) U/L ALT 13 L (21-72) U/L Alkaline Phosphatase 64 (38-126) U/L Troponin I 0.0280 (0.00-0.120) ng/mL Total Protein 6.2 L (6.3-8.3) g/dL Total Protein (PEP) (6.1-8.1) g/dL Albumin 2.7 L (3.5-5.0) g/dL Globulin 3.5 (2.2-3.9) gm/dL Albumin/Globulin Ratio 0.8 L (1.0-2.1) Blood Type Antibody Screen 03/21/17 03/21/17 03/20/17 Range/Units 06:18 00:21 20:55 WBC (4.8-10.8) K/uL RBC (4.40-5.90) Mil/uL Hgb (12.0-18.0) g/dL Hct (35.0-51.0) % MCV (80.0-94.0) fL MCH (27.0-31.0) pg MCHC (33.0-37.0) g/dL RDW (11.5-14.5) % Plt Count (130-400) K/uL MPV (7.2-11.7) fL Neut % (Auto) (50.0-75.0) % Lymph % (Auto) (20.0-40.0) % Mcpherson % (Auto) (0.0-10.0) % Eos % (Auto) (0.0-4.0) % Baso % (Auto) (0.0-2.0) % Neut # (1.8-7.0) K/uL Lymph # (1.0-4.3) K/uL Mcpherson # (0.0-0.8) K/uL Eos # (0.0-0.7) K/uL Baso # (0.0-0.2) K/uL Neutrophils % (Manual) (50-75) % Lymphocytes % (Manual) (20-40) % Monocytes % (Manual) (0-10) % Basophils % (Manual) (0-2) % Platelet Estimate (NORMAL) Hypochromasia (manual) Poikilocytosis (manual Anisocytosis (manual) Ovalocytes Haptoglobin (43-212) mg/dL Sodium (132-148) mmol/L Potassium (3.6-5.2) mmol/L Chloride (98-107) mmol/L Carbon Dioxide (22-30) mmol/L Anion Gap (10-20) BUN (9-20) mg/dL Creatinine (0.8-1.5) MG/DL Est GFR ( Amer) Est GFR (Non-Af Amer) POC Glucose (mg/dL) 117 H 133 H (65-110) mg/dL Random Glucose (75-110) mg/dL Calcium (8.6-10.4) mg/dl Phosphorus (2.5-4.5) mg/dL Magnesium (1.6-2.3) mg/dL Total Bilirubin (0.2-1.3) mg/dL AST (17-59) U/L ALT (21-72) U/L Alkaline Phosphatase (38-126) U/L Troponin I 0.0240 (0.00-0.120) ng/mL Total Protein (6.3-8.3) g/dL Total Protein (PEP) (6.1-8.1) g/dL Albumin (3.5-5.0) g/dL Globulin (2.2-3.9) gm/dL Albumin/Globulin Ratio (1.0-2.1) Blood Type Antibody Screen 03/20/17 03/20/17 03/19/17 Range/Units 16:18 14:52 17:38 WBC (4.8-10.8) K/uL RBC (4.40-5.90) Mil/uL Hgb (12.0-18.0) g/dL Hct (35.0-51.0) % MCV (80.0-94.0) fL MCH (27.0-31.0) pg MCHC (33.0-37.0) g/dL RDW (11.5-14.5) % Plt Count (130-400) K/uL MPV (7.2-11.7) fL Neut % (Auto) (50.0-75.0) % Lymph % (Auto) (20.0-40.0) % Mcpherson % (Auto) (0.0-10.0) % Eos % (Auto) (0.0-4.0) % Baso % (Auto) (0.0-2.0) % Neut # (1.8-7.0) K/uL Lymph # (1.0-4.3) K/uL Mcpherson # (0.0-0.8) K/uL Eos # (0.0-0.7) K/uL Baso # (0.0-0.2) K/uL Neutrophils % (Manual) (50-75) % Lymphocytes % (Manual) (20-40) % Monocytes % (Manual) (0-10) % Basophils % (Manual) (0-2) % Platelet Estimate (NORMAL) Hypochromasia (manual) Poikilocytosis (manual Anisocytosis (manual) Ovalocytes Haptoglobin 148 (43-212) mg/dL Sodium (132-148) mmol/L Potassium (3.6-5.2) mmol/L Chloride (98-107) mmol/L Carbon Dioxide (22-30) mmol/L Anion Gap (10-20) BUN (9-20) mg/dL Creatinine (0.8-1.5) MG/DL Est GFR ( Amer) Est GFR (Non-Af Amer) POC Glucose (mg/dL) 174 H (65-110) mg/dL Random Glucose (75-110) mg/dL Calcium (8.6-10.4) mg/dl Phosphorus (2.5-4.5) mg/dL Magnesium (1.6-2.3) mg/dL Total Bilirubin (0.2-1.3) mg/dL AST (17-59) U/L ALT (21-72) U/L Alkaline Phosphatase (38-126) U/L Troponin I 0.0210 (0.00-0.120) ng/mL Total Protein (6.3-8.3) g/dL Total Protein (PEP) (6.1-8.1) g/dL Albumin (3.5-5.0) g/dL Globulin (2.2-3.9) gm/dL Albumin/Globulin Ratio (1.0-2.1) Blood Type Antibody Screen 03/19/17 03/19/17 Range/Units 17:38 11:07 WBC (4.8-10.8) K/uL RBC (4.40-5.90) Mil/uL Hgb (12.0-18.0) g/dL Hct (35.0-51.0) % MCV (80.0-94.0) fL MCH (27.0-31.0) pg MCHC (33.0-37.0) g/dL RDW (11.5-14.5) % Plt Count (130-400) K/uL MPV (7.2-11.7) fL Neut % (Auto) (50.0-75.0) % Lymph % (Auto) (20.0-40.0) % Mcpherson % (Auto) (0.0-10.0) % Eos % (Auto) (0.0-4.0) % Baso % (Auto) (0.0-2.0) % Neut # (1.8-7.0) K/uL Lymph # (1.0-4.3) K/uL Mcpherson # (0.0-0.8) K/uL Eos # (0.0-0.7) K/uL Baso # (0.0-0.2) K/uL Neutrophils % (Manual) (50-75) % Lymphocytes % (Manual) (20-40) % Monocytes % (Manual) (0-10) % Basophils % (Manual) (0-2) % Platelet Estimate (NORMAL) Hypochromasia (manual) Poikilocytosis (manual Anisocytosis (manual) Ovalocytes Haptoglobin (43-212) mg/dL Sodium (132-148) mmol/L Potassium (3.6-5.2) mmol/L Chloride (98-107) mmol/L Carbon Dioxide (22-30) mmol/L Anion Gap (10-20) BUN (9-20) mg/dL Creatinine (0.8-1.5) MG/DL Est GFR ( Amer) Est GFR (Non-Af Amer) POC Glucose (mg/dL) (65-110) mg/dL Random Glucose (75-110) mg/dL Calcium (8.6-10.4) mg/dl Phosphorus (2.5-4.5) mg/dL Magnesium (1.6-2.3) mg/dL Total Bilirubin (0.2-1.3) mg/dL AST (17-59) U/L ALT (21-72) U/L Alkaline Phosphatase (38-126) U/L Troponin I (0.00-0.120) ng/mL Total Protein (6.3-8.3) g/dL Total Protein (PEP) 6.7 (6.1-8.1) g/dL Albumin (3.5-5.0) g/dL Globulin (2.2-3.9) gm/dL Albumin/Globulin Ratio (1.0-2.1) Blood Type O POSITIVE Antibody Screen Negative Laboratory Results - last 24 hr 03/19/17 03/19/17 03/19/17 11:07 17:38 17:38 WBC RBC Hgb Hct MCV MCH MCHC RDW Plt Count MPV Neut % (Auto) Lymph % (Auto) Mcpherson % (Auto) Eos % (Auto) Baso % (Auto) Neut # Lymph # Mcpherson # Eos # Baso # Neutrophils % (Manual) Lymphocytes % (Manual) Monocytes % (Manual) Basophils % (Manual) Platelet Estimate Hypochromasia (manual) Poikilocytosis (manual Anisocytosis (manual) Ovalocytes Haptoglobin 148 Sodium Potassium Chloride Carbon Dioxide Anion Gap BUN Creatinine Est GFR ( Amer) Est GFR (Non-Af Amer) POC Glucose (mg/dL) Random Glucose Calcium Phosphorus Magnesium Total Bilirubin AST ALT Alkaline Phosphatase Troponin I Total Protein Total Protein (PEP) 6.7 Albumin Globulin Albumin/Globulin Ratio Blood Type O POSITIVE Antibody Screen Negative 03/20/17 03/20/17 03/20/17 14:52 16:18 20:55 WBC RBC Hgb Hct MCV MCH MCHC RDW Plt Count MPV Neut % (Auto) Lymph % (Auto) Mcpherson % (Auto) Eos % (Auto) Baso % (Auto) Neut # Lymph # Mcpherson # Eos # Baso # Neutrophils % (Manual) Lymphocytes % (Manual) Monocytes % (Manual) Basophils % (Manual) Platelet Estimate Hypochromasia (manual) Poikilocytosis (manual Anisocytosis (manual) Ovalocytes Haptoglobin Sodium Potassium Chloride Carbon Dioxide Anion Gap BUN Creatinine Est GFR ( Amer) Est GFR (Non-Af Amer) POC Glucose (mg/dL) 174 H Random Glucose Calcium Phosphorus Magnesium Total Bilirubin AST ALT Alkaline Phosphatase Troponin I 0.0210 0.0240 Total Protein Total Protein (PEP) Albumin Globulin Albumin/Globulin Ratio Blood Type Antibody Screen 03/21/17 03/21/17 03/21/17 00:21 06:18 06:20 WBC 7.5 RBC 3.55 L Hgb 9.6 L D Hct 29.9 L MCV 84.1 MCH 27.1 MCHC 32.2 L RDW 17.1 H Plt Count 344 MPV 7.8 Neut % (Auto) 82.8 H Lymph % (Auto) 9.9 L Mcpherson % (Auto) 6.1 Eos % (Auto) 1.1 Baso % (Auto) 0.1 Neut # 6.2 Lymph # 0.7 L Mcpherson # 0.5 Eos # 0.1 Baso # 0.0 Neutrophils % (Manual) 86 H Lymphocytes % (Manual) 8 L Monocytes % (Manual) 5 Basophils % (Manual) 1 Platelet Estimate Normal Hypochromasia (manual) Slight Poikilocytosis (manual Slight Anisocytosis (manual) Slight Ovalocytes Slight Haptoglobin Sodium Potassium Chloride Carbon Dioxide Anion Gap BUN Creatinine Est GFR ( Amer) Est GFR (Non-Af Amer) POC Glucose (mg/dL) 133 H 117 H Random Glucose Calcium Phosphorus Magnesium Total Bilirubin AST ALT Alkaline Phosphatase Troponin I Total Protein Total Protein (PEP) Albumin Globulin Albumin/Globulin Ratio Blood Type Antibody Screen 03/21/17 03/21/17 06:22 06:22 WBC RBC Hgb Hct MCV MCH MCHC RDW Plt Count MPV Neut % (Auto) Lymph % (Auto) Mcpherson % (Auto) Eos % (Auto) Baso % (Auto) Neut # Lymph # Mcpherson # Eos # Baso # Neutrophils % (Manual) Lymphocytes % (Manual) Monocytes % (Manual) Basophils % (Manual) Platelet Estimate Hypochromasia (manual) Poikilocytosis (manual Anisocytosis (manual) Ovalocytes Haptoglobin Sodium 139 Potassium 3.4 L Chloride 103 Carbon Dioxide 24 Anion Gap 15 BUN 61 H Creatinine 1.5 Est GFR ( Amer) 56 Est GFR (Non-Af Amer) 46 POC Glucose (mg/dL) Random Glucose 108 Calcium 7.6 L Phosphorus 3.9 Magnesium 1.8 Total Bilirubin 1.2 AST 10 L ALT 13 L Alkaline Phosphatase 64 Troponin I 0.0280 Total Protein 6.2 L Total Protein (PEP) Albumin 2.7 L Globulin 3.5 Albumin/Globulin Ratio 0.8 L Blood Type Antibody Screen Fingerstick Blood Sugar Results: 199 Review of Systems - Constitutional Constitutional: absent: Fever, Chills - EENT Eyes: As Per HPI. absent: Blurred Vision Ears: As Per HPI. absent: Dizziness Nose/Mouth/Throat: As Per HPI, Sore Throat. absent: Dysphagia - Cardiovascular Cardiovascular: As Per HPI, Edema, Leg Edema. absent: Chest Pain, Palpitations - Respiratory Respiratory: As Per HPI, Cough, Chest Congestion. absent: Wheezing - Gastrointestinal Gastrointestinal: As Per HPI. absent: Abdominal Pain, Constipation, Diarrhea, Nausea, Vomiting - Genitourinary Genitourinary: As Per HPI. absent: Dysuria, Hematuria - Musculoskeletal Musculoskeletal: As Par HPI. absent: Back Pain, Numbness, Tingling - Integumentary Integumentary: As Per HPI. absent: Rash - Neurological Neurological: As Per HPI. absent: Dizziness, Headaches, Tingling - Psychiatric Psychiatric: As Per HPI. absent: Anxiety, Depression - Endocrine Endocrine: As Per HPI. absent: Polydipsia, Polyphagia, Polyuria - Hematologic/Lymphatic Hematologic: As Per HPI. absent: Easy Bleeding, Easy Bruising, Lymphadenopathy Critical Care Progress Note - Nutrition Nutrition: Nutrition Category Date Time Status NPO Diet [DIET] Diets 03/20/17 Dinner Active Assessment/Plan - Assessment and Plan (Free Text) Assessment: 71 M PMHx of CAD, CABG, AFib, DM w/ b/l toe amp, PVD, HTN, chronic anemia admitted for acute on chronic anemia, guiaic positive and hypotension Plan: Neuro: -No acute issues -Alert and oriented 3 Pulm: -CXR: congestive change. R basilar opacity. Possible pulmonary edema -Breathing spontaneously on 2 L nasal cannula. -Duoneb 3ml inh q6 -Advair 100/50 1 puff inh qdaily CV: -Relatively hypotensive for her normally hypertensive patient. Chronic systolic congestive heart failure (EF 30-35%, last echo 11/22/2016). -f/u repeat Echo -Amiodarone 200mg po daily - held this AM -Pletal 100mg po bid - held this AM Hem: -Acute on chronic anemia -FOBT+ -Patient for EGD this afternoon. Has been NPO overnight. -NGT in place on intermittent suction- bilious output ~100cc -Protonix gtt -s/p 3U PRBC transfusion -Feool 325mg po bid -CT Abd/pelvis: no evidence of intraperitoneal hemorrhage or retroperitoneal hemorrhage -GI consulted: Dr Ag Renal: -Acute renal failure -D5NS + 20KCl @ 50cc/hr -Nephrology consulted: Dr Haji Endo: -DM type II -RISS short acting -Lantus 10U sc daily -Neurontin 100mg po bid GI: -FOBT+ -Patient for EGD this afternoon. Has been NPO overnight. -NGT in place on intermittent suction- bilious output ~100cc -Protonix gtt -s/p 3U PRBC transfusion -CT Abd/pelvis: no evidence of intraperitoneal hemorrhage or retroperitoneal hemorrhage -GI consulted: Dr Ag ID: -No acute issues. MSK: -Podiatry following DVT proph - SCDs, holding anticoagulation with possibility of current bleed. GI proph - Protonix gtt allen for strict I/O's during acute illness Code status - full code Case discussed with Dr. Jacquie Mora PGY2 <Chaz Dhillon - Last Filed: 03/21/17 17:56> CCU Objective - Vital Signs / Intake & Output Vital Signs (Last 4 hours): Vital Signs Pulse Resp BP Pulse Ox 03/21/17 17:02 89 12 110/71 98 03/21/17 16:02 95 H 12 117/72 03/21/17 15:02 90 12 109/65 98 03/21/17 14:02 98 H 14 110/66 Intake and Output (Last 8hrs): Intake & Output 03/21/17 03/21/17 03/21/17 06:59 14:59 22:59 Intake Total 480 500 180 Output Total 664 1459 325 Balance -184 -959 -145 Intake: Intake, IV Amount 480 500 180 Right PICC 480 430 150 Right PICC #2 70 30 Output: Urine 664 1458 325 Urine, Voided 664 1458 325 Stool 1 - Medications Active Medications: Active Medications Generic Name Dose Route Start Last Admin Trade Name Freq PRN Reason Stop Dose Admin Albuterol/Ipratropium 3 ml 03/18/17 20:00 03/21/17 13:14 Duoneb 3 Mg/0.5 Mg (3 Ml) Ud INH 3 ml RQ6 AWAIS Administration Amiodarone HCl 200 mg 03/19/17 10:00 03/20/17 10:33 Cordarone PO 200 mg DAILY AWAIS Administration Cilostazol 100 mg 03/18/17 18:00 03/21/17 09:59 Pletal PO Not Given BID AWAIS Collagenase 1 gm 03/21/17 10:00 03/21/17 11:00 Santyl TOP Not Given DAILY [facility] Ferrous Sulfate 325 mg 03/18/17 18:00 03/21/17 09:58 Feosol PO Not Given BID [facility] Gabapentin 100 mg 03/18/17 18:00 03/21/17 09:58 Neurontin PO Not Given BID [facility] Pantoprazole Sodium 80 mg/ 100 mls @ 10 mls/hr 03/21/17 11:15 03/21/17 16:02 Sodium Chloride IV 03/23/17 15:16 10 mls/hr .Q10H AWAIS Administration 8 MG/HR Potassium Chloride 20 meq/ 1,010 mls @ 50 mls/hr 03/21/17 15:13 Dextrose/Sodium Chloride IV .[id number] [facility] Insulin Aspart 0 unit 03/20/17 18:15 03/21/17 12:30 Novolog SC Not Given Q6H [facility] Protocol Insulin Glargine 10 unit 03/19/17 10:00 03/21/17 09:59 Lantus SC Not Given DAILY [facility] Mupirocin 0 gm 03/18/17 18:00 03/21/17 11:00 Bactroban Ointment TOP Not Given BID [facility] Fluticasone/Salmeterol 1 puff 03/18/17 16:45 Advair Diskus 100/50 IH RQD AWAIS - Patient Studies Lab Studies: Lab Studies 03/21/17 03/21/17 03/21/17 Range/Units 17:20 12:38 06:22 WBC (4.8-10.8) K/uL RBC (4.40-5.90) Mil/uL Hgb (12.0-18.0) g/dL Hct (35.0-51.0) % MCV (80.0-94.0) fL MCH (27.0-31.0) pg MCHC (33.0-37.0) g/dL RDW (11.5-14.5) % Plt Count (130-400) K/uL MPV (7.2-11.7) fL Neut % (Auto) (50.0-75.0) % Lymph % (Auto) (20.0-40.0) % Mcpherson % (Auto) (0.0-10.0) % Eos % (Auto) (0.0-4.0) % Baso % (Auto) (0.0-2.0) % Neut # (1.8-7.0) K/uL Lymph # (1.0-4.3) K/uL Mcpherson # (0.0-0.8) K/uL Eos # (0.0-0.7) K/uL Baso # (0.0-0.2) K/uL Neutrophils % (Manual) (50-75) % Lymphocytes % (Manual) (20-40) % Monocytes % (Manual) (0-10) % Basophils % (Manual) (0-2) % Platelet Estimate (NORMAL) Hypochromasia (manual) Poikilocytosis (manual Anisocytosis (manual) Ovalocytes Haptoglobin (43-212) mg/dL Sodium (132-148) mmol/L Potassium (3.6-5.2) mmol/L Chloride (98-107) mmol/L Carbon Dioxide (22-30) mmol/L Anion Gap (10-20) BUN (9-20) mg/dL Creatinine (0.8-1.5) MG/DL Est GFR ( Amer) Est GFR (Non-Af Amer) POC Glucose (mg/dL) 133 H 130 H (65-110) mg/dL Random Glucose (75-110) mg/dL Calcium (8.6-10.4) mg/dl Phosphorus (2.5-4.5) mg/dL Magnesium (1.6-2.3) mg/dL Total Bilirubin (0.2-1.3) mg/dL AST (17-59) U/L ALT (21-72) U/L Alkaline Phosphatase (38-126) U/L Troponin I 0.0280 (0.00-0.120) ng/mL Total Protein (6.3-8.3) g/dL Total Protein (PEP) (6.1-8.1) g/dL Albumin (3.5-5.0) g/dL Globulin (2.2-3.9) gm/dL Albumin/Globulin Ratio (1.0-2.1) 03/21/17 03/21/17 03/21/17 Range/Units 06:22 06:20 06:18 WBC 7.5 (4.8-10.8) K/uL RBC 3.55 L (4.40-5.90) Mil/uL Hgb 9.6 L D (12.0-18.0) g/dL Hct 29.9 L (35.0-51.0) % MCV 84.1 (80.0-94.0) fL MCH 27.1 (27.0-31.0) pg MCHC 32.2 L (33.0-37.0) g/dL RDW 17.1 H (11.5-14.5) % Plt Count 344 (130-400) K/uL MPV 7.8 (7.2-11.7) fL Neut % (Auto) 82.8 H (50.0-75.0) % Lymph % (Auto) 9.9 L (20.0-40.0) % Mcpherson % (Auto) 6.1 (0.0-10.0) % Eos % (Auto) 1.1 (0.0-4.0) % Baso % (Auto) 0.1 (0.0-2.0) % Neut # 6.2 (1.8-7.0) K/uL Lymph # 0.7 L (1.0-4.3) K/uL Mcpherson # 0.5 (0.0-0.8) K/uL Eos # 0.1 (0.0-0.7) K/uL Baso # 0.0 (0.0-0.2) K/uL Neutrophils % (Manual) 86 H (50-75) % Lymphocytes % (Manual) 8 L (20-40) % Monocytes % (Manual) 5 (0-10) % Basophils % (Manual) 1 (0-2) % Platelet Estimate Normal (NORMAL) Hypochromasia (manual) Slight Poikilocytosis (manual Slight Anisocytosis (manual) Slight Ovalocytes Slight Haptoglobin (43-212) mg/dL Sodium 139 (132-148) mmol/L Potassium 3.4 L (3.6-5.2) mmol/L Chloride 103 (98-107) mmol/L Carbon Dioxide 24 (22-30) mmol/L Anion Gap 15 (10-20) BUN 61 H (9-20) mg/dL Creatinine 1.5 (0.8-1.5) MG/DL Est GFR ( Amer) 56 Est GFR (Non-Af Amer) 46 POC Glucose (mg/dL) 117 H (65-110) mg/dL Random Glucose 108 (75-110) mg/dL Calcium 7.6 L (8.6-10.4) mg/dl Phosphorus 3.9 (2.5-4.5) mg/dL Magnesium 1.8 (1.6-2.3) mg/dL Total Bilirubin 1.2 (0.2-1.3) mg/dL AST 10 L (17-59) U/L ALT 13 L (21-72) U/L Alkaline Phosphatase 64 (38-126) U/L Troponin I (0.00-0.120) ng/mL Total Protein 6.2 L (6.3-8.3) g/dL Total Protein (PEP) (6.1-8.1) g/dL Albumin 2.7 L (3.5-5.0) g/dL Globulin 3.5 (2.2-3.9) gm/dL Albumin/Globulin Ratio 0.8 L (1.0-2.1) 03/21/17 03/20/17 03/19/17 Range/Units 00:21 20:55 17:38 WBC (4.8-10.8) K/uL RBC (4.40-5.90) Mil/uL Hgb (12.0-18.0) g/dL Hct (35.0-51.0) % MCV (80.0-94.0) fL MCH (27.0-31.0) pg MCHC (33.0-37.0) g/dL RDW (11.5-14.5) % Plt Count (130-400) K/uL MPV (7.2-11.7) fL Neut % (Auto) (50.0-75.0) % Lymph % (Auto) (20.0-40.0) % Mcpherson % (Auto) (0.0-10.0) % Eos % (Auto) (0.0-4.0) % Baso % (Auto) (0.0-2.0) % Neut # (1.8-7.0) K/uL Lymph # (1.0-4.3) K/uL Mcpherson # (0.0-0.8) K/uL Eos # (0.0-0.7) K/uL Baso # (0.0-0.2) K/uL Neutrophils % (Manual) (50-75) % Lymphocytes % (Manual) (20-40) % Monocytes % (Manual) (0-10) % Basophils % (Manual) (0-2) % Platelet Estimate (NORMAL) Hypochromasia (manual) Poikilocytosis (manual Anisocytosis (manual) Ovalocytes Haptoglobin 148 (43-212) mg/dL Sodium (132-148) mmol/L Potassium (3.6-5.2) mmol/L Chloride (98-107) mmol/L Carbon Dioxide (22-30) mmol/L Anion Gap (10-20) BUN (9-20) mg/dL Creatinine (0.8-1.5) MG/DL Est GFR ( Amer) Est GFR (Non-Af Amer) POC Glucose (mg/dL) 133 H (65-110) mg/dL Random Glucose (75-110) mg/dL Calcium (8.6-10.4) mg/dl Phosphorus (2.5-4.5) mg/dL Magnesium (1.6-2.3) mg/dL Total Bilirubin (0.2-1.3) mg/dL AST (17-59) U/L ALT (21-72) U/L Alkaline Phosphatase (38-126) U/L Troponin I 0.0240 (0.00-0.120) ng/mL Total Protein (6.3-8.3) g/dL Total Protein (PEP) (6.1-8.1) g/dL Albumin (3.5-5.0) g/dL Globulin (2.2-3.9) gm/dL Albumin/Globulin Ratio (1.0-2.1) 03/19/17 Range/Units 17:38 WBC (4.8-10.8) K/uL RBC (4.40-5.90) Mil/uL Hgb (12.0-18.0) g/dL Hct (35.0-51.0) % MCV (80.0-94.0) fL MCH (27.0-31.0) pg MCHC (33.0-37.0) g/dL RDW (11.5-14.5) % Plt Count (130-400) K/uL MPV (7.2-11.7) fL Neut % (Auto) (50.0-75.0) % Lymph % (Auto) (20.0-40.0) % Mcpherson % (Auto) (0.0-10.0) % Eos % (Auto) (0.0-4.0) % Baso % (Auto) (0.0-2.0) % Neut # (1.8-7.0) K/uL Lymph # (1.0-4.3) K/uL Mcpherson # (0.0-0.8) K/uL Eos # (0.0-0.7) K/uL Baso # (0.0-0.2) K/uL Neutrophils % (Manual) (50-75) % Lymphocytes % (Manual) (20-40) % Monocytes % (Manual) (0-10) % Basophils % (Manual) (0-2) % Platelet Estimate (NORMAL) Hypochromasia (manual) Poikilocytosis (manual Anisocytosis (manual) Ovalocytes Haptoglobin (43-212) mg/dL Sodium (132-148) mmol/L Potassium (3.6-5.2) mmol/L Chloride (98-107) mmol/L Carbon Dioxide (22-30) mmol/L Anion Gap (10-20) BUN (9-20) mg/dL Creatinine (0.8-1.5) MG/DL Est GFR ( Amer) Est GFR (Non-Af Amer) POC Glucose (mg/dL) (65-110) mg/dL Random Glucose (75-110) mg/dL Calcium (8.6-10.4) mg/dl Phosphorus (2.5-4.5) mg/dL Magnesium (1.6-2.3) mg/dL Total Bilirubin (0.2-1.3) mg/dL AST (17-59) U/L ALT (21-72) U/L Alkaline Phosphatase (38-126) U/L Troponin I (0.00-0.120) ng/mL Total Protein (6.3-8.3) g/dL Total Protein (PEP) 6.7 (6.1-8.1) g/dL Albumin (3.5-5.0) g/dL Globulin (2.2-3.9) gm/dL Albumin/Globulin Ratio (1.0-2.1) Laboratory Results - last 24 hr 03/19/17 03/19/17 03/20/17 17:38 17:38 20:55 WBC RBC Hgb Hct MCV MCH MCHC RDW Plt Count MPV Neut % (Auto) Lymph % (Auto) Mcpherson % (Auto) Eos % (Auto) Baso % (Auto) Neut # Lymph # Mcpherson # Eos # Baso # Neutrophils % (Manual) Lymphocytes % (Manual) Monocytes % (Manual) Basophils % (Manual) Platelet Estimate Hypochromasia (manual) Poikilocytosis (manual Anisocytosis (manual) Ovalocytes Haptoglobin 148 Sodium Potassium Chloride Carbon Dioxide Anion Gap BUN Creatinine Est GFR ( Amer) Est GFR (Non-Af Amer) POC Glucose (mg/dL) Random Glucose Calcium Phosphorus Magnesium Total Bilirubin AST ALT Alkaline Phosphatase Troponin I 0.0240 Total Protein Total Protein (PEP) 6.7 Albumin Globulin Albumin/Globulin Ratio 03/21/17 03/21/17 03/21/17 00:21 06:18 06:20 WBC 7.5 RBC 3.55 L Hgb 9.6 L D Hct 29.9 L MCV 84.1 MCH 27.1 MCHC 32.2 L RDW 17.1 H Plt Count 344 MPV 7.8 Neut % (Auto) 82.8 H Lymph % (Auto) 9.9 L [place] % (Auto) 6.1 Eos % (Auto) 1.1 Baso % (Auto) 0.1 Neut # 6.2 Lymph # 0.7 L [place] # 0.5 Eos # 0.1 Baso # 0.0 Neutrophils % (Manual) 86 H Lymphocytes % (Manual) 8 L Monocytes % (Manual) 5 Basophils % (Manual) 1 Platelet Estimate Normal Hypochromasia (manual) Slight Poikilocytosis (manual Slight Anisocytosis (manual) Slight Ovalocytes Slight Haptoglobin Sodium Potassium Chloride Carbon Dioxide Anion Gap BUN Creatinine Est GFR ( Amer) Est GFR (Non-Af Amer) POC Glucose (mg/dL) 133 H 117 H Random Glucose Calcium Phosphorus Magnesium Total Bilirubin AST ALT Alkaline Phosphatase Troponin I Total Protein Total Protein (PEP) Albumin Globulin Albumin/Globulin Ratio 03/21/17 03/21/17 03/21/17 06:22 06:22 12:38 WBC RBC Hgb Hct MCV MCH MCHC RDW Plt Count MPV Neut % (Auto) Lymph % (Auto) [place] % (Auto) Eos % (Auto) Baso % (Auto) Neut # Lymph # [place] # Eos # Baso # Neutrophils % (Manual) Lymphocytes % (Manual) Monocytes % (Manual) Basophils % (Manual) Platelet Estimate Hypochromasia (manual) Poikilocytosis (manual Anisocytosis (manual) Ovalocytes Haptoglobin Sodium 139 Potassium 3.4 L Chloride 103 Carbon Dioxide 24 Anion Gap 15 BUN 61 H Creatinine 1.5 Est GFR ( Amer) 56 Est GFR (Non-Af Amer) 46 POC Glucose (mg/dL) 130 H Random Glucose 108 Calcium 7.6 L Phosphorus 3.9 Magnesium 1.8 Total Bilirubin 1.2 AST 10 L ALT 13 L Alkaline Phosphatase 64 Troponin I 0.0280 Total Protein 6.2 L Total Protein (PEP) Albumin 2.7 L Globulin 3.5 Albumin/Globulin Ratio 0.8 L 03/21/17 17:20 WBC RBC Hgb Hct MCV MCH MCHC RDW Plt Count MPV Neut % (Auto) Lymph % (Auto) [place] % (Auto) Eos % (Auto) Baso % (Auto) Neut # Lymph # [place] # Eos # Baso # Neutrophils % (Manual) Lymphocytes % (Manual) Monocytes % (Manual) Basophils % (Manual) Platelet Estimate Hypochromasia (manual) Poikilocytosis (manual Anisocytosis (manual) Ovalocytes Haptoglobin Sodium Potassium Chloride Carbon Dioxide Anion Gap BUN Creatinine Est GFR ( Amer) Est GFR (Non-Af Amer) POC Glucose (mg/dL) 133 H Random Glucose Calcium Phosphorus Magnesium Total Bilirubin AST ALT Alkaline Phosphatase Troponin I Total Protein Total Protein (PEP) Albumin Globulin Albumin/Globulin Ratio Critical Care Progress Note - Nutrition Nutrition: Nutrition Category Date Time Status NPO Diet [DIET] Diets 03/20/17 Dinner Active Attending/Attestation - Attestation I have personally seen and examined this patient.: Yes I have fully participated in the care of the patient.: Yes I have reviewed all pertinent clinical information: Yes Notes (Text): 03/21/17 17:52 I have seen and examined the patient. Medical records, lab studies, and imaging were reviewed by me and a management plan was formulated on multidisciplinary rounds with resident Dr. Mora. I agree with their above documented assessment and plan. Patient's h/h stabilized. Going for EGD today. Blood pressure also stable, but still relatively low for this patient. Critical Care Time 35 minutes. Multi-disciplinary rounds were performed with house staff, nursing, speech therapy, respiratory therapy, pharmacy and nutrition with integrated input from the primary team/attending and other consulting services. The documented time is cumulative and includes review of patient data/exams/labs/chart review and examination of the patient on rounds and throughout the day; time is exclusive of any procedures or teaching time. 03/21/17 17:52
--- NOTE | 2017-03-21 13:28 | CP.PCM.CON ---
History of Present Illness - History of Present Illness History of Present Illness: Palliative consult Requested by Doctor ramos Reason: Goals of care discussion Patient is a 71 yo male admitted from home with complaints of cough and white phlegm X 2 weeks. Symptoms worsened on the night of admission. Accompanying symptoms were SOB on excertion and nasal congestion. Within those 2 weeks, patient was treated with Zitromax, but with no success. Upon admission CXR was significant for severe venous congestion. CT abdomen and pelvis [place] [address]. Patient was treated with Lasix BID . Patient tested guiac positive and was placed on Protonix drip. Endoscopy is pending today at 2 pm. Yesterday BP dropped to 70s systolic and AUTOCAD was called. After the bolus of NaCl 0.9%, BP improved at 84/46. Transferred to ICU for further care.Low BP is unusual for the patient. Patient was transfused 2 units of PRBCs and continued on IVF at 60 cc/hr. Hb today 9.6. PMH: CAD, CABG, DM, PVD, anemia, A Fib, B/L toes amputation Soc. 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 Hx: patient denies knowledge of [facility], parents Review of Systems - Constitutional Constitutional: Malaise - EENT Eyes: absent: As Per HPI, Blind Spots, Blurred Vision, Change in Vision, Decreased Night Vision, Diplopia, Discharge, Dry Eye, Exophthalmos, Floaters, Irritation, Itchy Eyes, Loss of Peripheral Vision, Pain, Photophobia, Requires Corrective Lenses, Sees Flashes, Spots in Vision, Tunnel Vision, Other Visual Disturbances, Loss of Vision, Other Ears: absent: As Per HPI, Decreased Hearing, Ear Discharge, Ear Pain, Tinnitus, Abnormal Hearing, Disequilibrium, Dizziness, Other Additional comments: missing teeth, NGT in place - Cardiovascular Cardiovascular: Dyspnea on Exertion, Rapid Heart Rate - Respiratory Respiratory: Cough, Dyspnea on Exertion, Chest Congestion - Gastrointestinal Gastrointestinal: Hematochezia - Genitourinary Genitourinary: absent: As Per HPI, Change in Urinary Stream, Difficulty Urinating, Dysuria, Flank Pain, Hematuria, Pyuria, Nocturia, Urinary Incontinence, Urinary Frequency, Urinary Hesitance, Urinary Urgency, Voiding Freq/Small Amts, Freq UTI, Hx Renal/Bladder Calculi, Hx /Renal Surgery, Bladder Distension, Other - Musculoskeletal Musculoskeletal: Muscle Weakness, Myalgias - Integumentary Integumentary: absent: As Per HPI, Acne, Alopecia, Bleeding Lesions, Change in Hair, Change in Nails, Change in Pigmentation, Changing Lesions, Dry Skin, Erythema, Furuncle, Hirsutism, Lesions, New Lesions, Non-Healing Lesions, Photosensitivity, Pruritus, Rash, Skin Pain, Skin Ulcer, Sores, Striae, Swelling , Unusual Bruising, Wounds, Jaundice, Other - Neurological Neurological: Memory Loss - Psychiatric Psychiatric: Confusion, Difficulty Concentrating - Endocrine Endocrine: Change in Body Appearance Additional Comments: B/L toes amputation 2nd to PVD and DM - Hematologic/Lymphatic Hematologic: absent: As Per HPI, Easy Bleeding, Easy Bruising, Lymphadenopathy, Other Past Patient History - Infectious Disease Hx of Infectious Diseases: None - Past Medical History & Family History Past Medical History?: Yes - Past Social History Smoking Status: Former Smoker - CARDIAC Hx Cardiac Disorders: Yes (CAD, CABG, CHF (EF 30%)) Hx Atrial Fibrillation: Yes Hx Congestive Heart Failure: Yes Hx Hypercholesterolemia: Yes Hx Hypertension: Yes Hx Mitral Valve Prolapse: Yes Hx Peripheral Edema: Yes - PULMONARY Hx Respiratory Disorders: No - NEUROLOGICAL Hx Neurological Disorder: No - HEENT Hx HEENT Problems: No - RENAL Hx Chronic Kidney Disease: No - ENDOCRINE/METABOLIC Hx Diabetes Mellitus Type 2: Yes - HEMATOLOGICAL/ONCOLOGICAL Hx Blood Disorders: No Hx Anemia: Yes - INTEGUMENTARY Hx Dermatological Problems: Yes Hx Cellulitis: Yes Other/Comment: gangrene left foot - MUSCULOSKELETAL/RHEUMATOLOGICAL Hx Falls: No - GASTROINTESTINAL Hx Gall Bladder Disease: Yes - GENITOURINARY/GYNECOLOGICAL Hx Genitourinary Disorders: No Hx Urinary Tract Infection: Yes (Admitted earlier this year for UTI) - PSYCHIATRIC Hx Substance Use: No - SURGICAL HISTORY Hx Surgeries: Yes Hx Amputation: Yes (left foot toes 2016; right foot toes 2015) Hx Coronary Artery Bypass Graft: Yes (2009) - ANESTHESIA Hx Anesthesia: Yes Hx Anesthesia Reactions: No Hx Malignant Hyperthermia: No Meds Allergies/Adverse Reactions: Allergies Allergy/AdvReac Type Severity Reaction Status Date / Time No Known Allergies Allergy Verified 03/18/17 10:39 - Medications Medications: Current Medications Albuterol/Ipratropium (Duoneb 3 Mg/0.5 Mg (3 Ml) Ud) 3 ml INH RQ6 [facility] Last Admin: 03/21/17 13:14 Dose: 3 ml Amiodarone HCl (Cordarone) 200 mg PO DAILY [facility] Last Admin: 03/20/17 10:33 Dose: 200 mg Cilostazol (Pletal) 100 mg PO BID [facility] Last Admin: 03/21/17 09:59 Dose: Not Given Collagenase (Santyl) 1 gm TOP DAILY [facility] Ferrous Sulfate (Feosol) 325 mg PO BID [facility] Last Admin: 03/21/17 09:58 Dose: Not Given Gabapentin (Neurontin) 100 mg PO BID [facility] Last Admin: 03/21/17 09:58 Dose: Not Given Potassium Chloride 20 meq/ (Dextrose/Sodium Chloride) 1,010 mls @ 60 mls/hr IV .[id number] [facility] Last Admin: 03/20/17 22:30 Dose: 60 mls/hr Pantoprazole Sodium 80 mg/ (Sodium Chloride) 100 mls @ 10 mls/hr IV .Q10H [facility] PRN Reason: 8 MG/HR Stop: 03/23/17 15:16 Insulin Aspart (Novolog) 0 unit SC Q6H [facility] PRN Reason: Protocol Last Admin: 03/21/17 06:43 Dose: Not Given Insulin Glargine (Lantus) 10 unit SC DAILY [facility] Last Admin: 03/21/17 09:59 Dose: Not Given Mupirocin (Bactroban Ointment) 0 gm TOP BID [facility] Last Admin: 03/20/17 17:31 Dose: Not Given Fluticasone/Salmeterol (Advair Diskus 100/50) 1 puff IH RQD [facility] Physical Exam - Constitutional Appears: Chronically Ill - Head Exam Head Exam: ATRAUMATIC, NORMAL INSPECTION, NORMOCEPHALIC - Eye Exam Eye Exam: EOMI, Normal appearance, PERRL Pupil Exam: NORMAL ACCOMODATION, PERRL - ENT Exam Additional comments: NGT in place clamped - Neck Exam Neck exam: Positive for: Normal Inspection - Respiratory Exam Respiratory Exam: Rales, Rhonchi, Wheezes - Cardiovascular Exam Cardiovascular Exam: Tachycardia, REGULAR RHYTHM, +S1, +S2 - GI/Abdominal Exam GI & Abdominal Exam: Normal Bowel Sounds, Soft - Rectal Exam Rectal Exam: Deferred - Exam Exam: NORMAL INSPECTION External exam: NORMAL EXTERNAL EXAM - Extremities Exam Additional comments: B/L toes amputation - Back Exam Back exam: NORMAL INSPECTION - Neurological Exam Neurological exam: Alert, Altered - Psychiatric Exam Psychiatric exam: Anxious, Normal Affect - Skin Skin Exam: Normal Color, Warm Results - Vital Signs Recent Vital Signs: Last Vital Signs Temp 97.9 F 03/21/17 08:00 Pulse 89 03/21/17 08:02 Resp 13 03/21/17 08:02 BP 105/64 03/21/17 10:38 Pulse Ox 100 03/21/17 08:02 - Labs Result Diagrams: 03/21/17 06:20 03/21/17 06:22 Labs: Laboratory Results - last 24 hr 03/19/17 03/19/17 03/19/17 11:07 17:38 17:38 WBC RBC Hgb Hct MCV MCH MCHC RDW Plt Count MPV Neut % (Auto) Lymph % (Auto) [place] % (Auto) Eos % (Auto) Baso % (Auto) Neut # Lymph # [place] # Eos # Baso # Neutrophils % (Manual) Lymphocytes % (Manual) Monocytes % (Manual) Basophils % (Manual) Platelet Estimate Hypochromasia (manual) Poikilocytosis (manual Anisocytosis (manual) Ovalocytes Haptoglobin 148 Sodium Potassium Chloride Carbon Dioxide Anion Gap BUN Creatinine Est GFR ( Amer) Est GFR (Non-Af Amer) POC Glucose (mg/dL) Random Glucose Calcium Phosphorus Magnesium Total Bilirubin AST ALT Alkaline Phosphatase Troponin I Total Protein Total Protein (PEP) 6.7 Albumin Globulin Albumin/Globulin Ratio Blood Type O POSITIVE Antibody Screen Negative 03/20/17 03/20/17 03/20/17 14:52 16:18 20:55 WBC RBC Hgb Hct MCV MCH MCHC RDW Plt Count MPV Neut % (Auto) Lymph % (Auto) [place] % (Auto) Eos % (Auto) Baso % (Auto) Neut # Lymph # [place] # Eos # Baso # Neutrophils % (Manual) Lymphocytes % (Manual) Monocytes % (Manual) Basophils % (Manual) Platelet Estimate Hypochromasia (manual) Poikilocytosis (manual Anisocytosis (manual) Ovalocytes Haptoglobin Sodium Potassium Chloride Carbon Dioxide Anion Gap BUN Creatinine Est GFR ( Amer) Est GFR (Non-Af Amer) POC Glucose (mg/dL) 174 H Random Glucose Calcium Phosphorus Magnesium Total Bilirubin AST ALT Alkaline Phosphatase Troponin I 0.0210 0.0240 Total Protein Total Protein (PEP) Albumin Globulin Albumin/Globulin Ratio Blood Type Antibody Screen 03/21/17 03/21/17 03/21/17 00:21 06:18 06:20 WBC 7.5 RBC 3.55 L Hgb 9.6 L D Hct 29.9 L MCV 84.1 MCH 27.1 MCHC 32.2 L RDW 17.1 H Plt Count 344 MPV 7.8 Neut % (Auto) 82.8 H Lymph % (Auto) 9.9 L [place] % (Auto) 6.1 Eos % (Auto) 1.1 Baso % (Auto) 0.1 Neut # 6.2 Lymph # 0.7 L [place] # 0.5 Eos # 0.1 Baso # 0.0 Neutrophils % (Manual) 86 H Lymphocytes % (Manual) 8 L Monocytes % (Manual) 5 Basophils % (Manual) 1 Platelet Estimate Normal Hypochromasia (manual) Slight Poikilocytosis (manual Slight Anisocytosis (manual) Slight Ovalocytes Slight Haptoglobin Sodium Potassium Chloride Carbon Dioxide Anion Gap BUN Creatinine Est GFR ( Amer) Est GFR (Non-Af Amer) POC Glucose (mg/dL) 133 H 117 H Random Glucose Calcium Phosphorus Magnesium Total Bilirubin AST ALT Alkaline Phosphatase Troponin I Total Protein Total Protein (PEP) Albumin Globulin Albumin/Globulin Ratio Blood Type Antibody Screen 03/21/17 03/21/17 06:22 06:22 WBC RBC Hgb Hct MCV MCH MCHC RDW Plt Count MPV Neut % (Auto) Lymph % (Auto) [place] % (Auto) Eos % (Auto) Baso % (Auto) Neut # Lymph # [place] # Eos # Baso # Neutrophils % (Manual) Lymphocytes % (Manual) Monocytes % (Manual) Basophils % (Manual) Platelet Estimate Hypochromasia (manual) Poikilocytosis (manual Anisocytosis (manual) Ovalocytes Haptoglobin Sodium 139 Potassium 3.4 L Chloride 103 Carbon Dioxide 24 Anion Gap 15 BUN 61 H Creatinine 1.5 Est GFR ( Amer) 56 Est GFR (Non-Af Amer) 46 POC Glucose (mg/dL) Random Glucose 108 Calcium 7.6 L Phosphorus 3.9 Magnesium 1.8 Total Bilirubin 1.2 AST 10 L ALT 13 L Alkaline Phosphatase 64 Troponin I 0.0280 Total Protein 6.2 L Total Protein (PEP) Albumin 2.7 L Globulin 3.5 Albumin/Globulin Ratio 0.8 L Blood Type Antibody Screen Assessment & Plan - Assessment and Plan (Free Text) Assessment: palliative consult Code status Full Code, there is no advance directive on chart, PPS 20% I reviewed medical records, all diagnostic studies, examined and interviewed patient in the bed and discussed his case with his primary RN. Patient is alert, oriented to person and place, with lack of short term memory. Patient unable to recall recent developments, insisting he was doing just fine at home, and his forced him to come to ED. Patient does not remember [facility] being called and interventions provided to save his life. Patient complained being bothered by the NGT and all other attachments. Reports being hungry and asked for some food. Shaking noted to upper arms. Patient stated being cold, but refused extra blanket. BP 105/64, HR 89, O2Sat 100%, afebrile. Complains of being restricted in bed. Denied foot pain. I reviewed his condition and explained in simple words why he needed ICU care. We reviewed Endosopy need for and blood in stool. I tried to reassure patient that he would be fed soon after the Endo if everything was OK. Patient insisted wanted to go home soon after he gets stronger. I further elicited his expectations of this hospitalization. Patient was focused on returning home and [facility] was not option for him at this time. Based on my assessment of patient's confusion and inability to recall recent developments I decided to discuss Code status with his when she comes. Assessment * Patient is alert, confused and forgetful unable to participate indecision making process * Patient denies any acute symptoms and wanting to go home * There is moist cough with minimal sputum production, wheezing and chest congestion * Low BP * Patient needs max assistance with repositioning in bed * Body image disturbance and inability to walk due to toes amputation Suggestions * Reorient patient to time and place upon each interaction * Reassure patient of his safety to help decrease his anxiety * Patient needs max assistance with repositioning in bed * promote skin integrity, at risk for pressure sores * Further goals of care and Code status to be discussed with patient's family, as patient has no decision making capacity I will meet with patient's on Friday for a family meeting. Thank you very much for consulting Palliative care
[2017-03-21] MEDS: Pantoprazole 80 MG in Sodium Chloride 0.9% 100 ML IV SCH (16:02)
--- NOTE | 2017-03-21 17:36 | CP.PCM.PN ---
Subjective - Date & Time of Evaluation Date of Evaluation: 03/20/17 Time of Evaluation: 10:00 - Subjective Subjective: patient has no current chest pain. feels dyspneic Objective - Vital Signs/Intake and Output Vital Signs (last 24 hours): Temp Pulse Resp BP Pulse Ox 97.9 F 89 12 110/71 98 03/21/17 08:00 03/21/17 17:02 03/21/17 17:02 03/21/17 17:02 03/21/17 17:02 Intake and Output: 03/21/17 03/21/17 06:59 18:59 Intake Total 730 680 Output Total 913 5894 Balance -183 -1104 - Medications Medications: Current Medications Albuterol/Ipratropium (Duoneb 3 Mg/0.5 Mg (3 Ml) Ud) 3 ml INH RQ6 [facility] Last Admin: 03/21/17 13:14 Dose: 3 ml Amiodarone HCl (Cordarone) 200 mg PO DAILY [facility] Last Admin: 03/20/17 10:33 Dose: 200 mg Cilostazol (Pletal) 100 mg PO BID [facility] Last Admin: 03/21/17 09:59 Dose: Not Given Collagenase (Santyl) 1 gm TOP DAILY [facility] Last Admin: 03/21/17 11:00 Dose: Not Given Ferrous Sulfate (Feosol) 325 mg PO BID [facility] Last Admin: 03/21/17 09:58 Dose: Not Given Gabapentin (Neurontin) 100 mg PO BID [facility] Last Admin: 03/21/17 09:58 Dose: Not Given Pantoprazole Sodium 80 mg/ (Sodium Chloride) 100 mls @ 10 mls/hr IV .Q10H [facility] PRN Reason: 8 MG/HR Stop: 03/23/17 15:16 Last Admin: 03/21/17 16:02 Dose: 10 mls/hr Potassium Chloride 20 meq/ (Dextrose/Sodium Chloride) 1,010 mls @ 50 mls/hr IV .[id number] [facility] Insulin Aspart (Novolog) 0 unit SC Q6H [facility] PRN Reason: Protocol Last Admin: 03/21/17 12:30 Dose: Not Given Insulin Glargine (Lantus) 10 unit SC DAILY [facility] Last Admin: 03/21/17 09:59 Dose: Not Given Mupirocin (Bactroban Ointment) 0 gm TOP BID [facility] Last Admin: 03/21/17 11:00 Dose: Not Given Fluticasone/Salmeterol (Advair Diskus 100/50) 1 puff IH RQD [facility] - Labs Labs: 03/21/17 06:20 03/21/17 06:22 PT 24.6 SECONDS (9.7-12.2) H 03/18/17 17:38 INR 2.1 03/18/17 17:38 APTT 33 SECONDS (21-34) 03/18/17 17:38 - Constitutional Appears: Non-toxic - Head Exam Head Exam: NORMAL INSPECTION - Eye Exam Eye Exam: Normal appearance - ENT Exam ENT Exam: Mucous Membranes Moist - Neck Exam Neck Exam: Full ROM - Respiratory Exam Respiratory Exam: Decreased Breath Sounds - Cardiovascular Exam Cardiovascular Exam: Irregular Rhythm - GI/Abdominal Exam GI & Abdominal Exam: Normal Bowel Sounds - Rectal Exam Rectal Exam: Deferred - Extremities Exam Extremities Exam: Pedal Edema - Back Exam Back Exam: NORMAL INSPECTION - Neurological Exam Neurological Exam: Alert - Psychiatric Exam Psychiatric exam: Normal Affect - Skin Skin Exam: Normal Color Assessment and Plan (1) Anemia Assessment & Plan: will monitor Status: Acute (2) CHF (congestive heart failure) Assessment & Plan: diuresis Status: Chronic (3) Aortic stenosis Assessment & Plan: medical therapy. not ideal candidate for surgery Status: Acute (4) Ischemic cardiomyopathy Assessment & Plan: would benefit from AICD, however to ill for the procedure Status: Acute
--- NOTE | 2017-03-21 17:37 | CP.PCM.PN ---
Subjective - Date & Time of Evaluation Date of Evaluation: 03/21/17 Time of Evaluation: 17:35 - Subjective Subjective: no new complaints Objective - Vital Signs/Intake and Output Vital Signs (last 24 hours): Temp Pulse Resp BP Pulse Ox 97.9 F 89 12 110/71 98 03/21/17 08:00 03/21/17 17:02 03/21/17 17:02 03/21/17 17:02 03/21/17 17:02 Intake and Output: 03/21/17 03/21/17 06:59 18:59 Intake Total 730 680 Output Total 913 1954 Balance -183 -1104 - Medications Medications: Current Medications Albuterol/Ipratropium (Duoneb 3 Mg/0.5 Mg (3 Ml) Ud) 3 ml INH RQ6 [facility] Last Admin: 03/21/17 13:14 Dose: 3 ml Amiodarone HCl (Cordarone) 200 mg PO DAILY [facility] Last Admin: 03/20/17 10:33 Dose: 200 mg Cilostazol (Pletal) 100 mg PO BID [facility] Last Admin: 03/21/17 09:59 Dose: Not Given Collagenase (Santyl) 1 gm TOP DAILY [facility] Last Admin: 03/21/17 11:00 Dose: Not Given Ferrous Sulfate (Feosol) 325 mg PO BID [facility] Last Admin: 03/21/17 09:58 Dose: Not Given Gabapentin (Neurontin) 100 mg PO BID [facility] Last Admin: 03/21/17 09:58 Dose: Not Given Pantoprazole Sodium 80 mg/ (Sodium Chloride) 100 mls @ 10 mls/hr IV .Q10H [facility] PRN Reason: 8 MG/HR Stop: 03/23/17 15:16 Last Admin: 03/21/17 16:02 Dose: 10 mls/hr Potassium Chloride 20 meq/ (Dextrose/Sodium Chloride) 1,010 mls @ 50 mls/hr IV .[id number] [facility] Insulin Aspart (Novolog) 0 unit SC Q6H [facility] PRN Reason: Protocol Last Admin: 03/21/17 12:30 Dose: Not Given Insulin Glargine (Lantus) 10 unit SC DAILY [facility] Last Admin: 03/21/17 09:59 Dose: Not Given Mupirocin (Bactroban Ointment) 0 gm TOP BID [facility] Last Admin: 03/21/17 11:00 Dose: Not Given Fluticasone/Salmeterol (Advair Diskus 100/50) 1 puff IH RQD [facility] - Labs Labs: 03/21/17 06:20 03/21/17 06:22 PT 24.6 SECONDS (9.7-12.2) H 03/18/17 17:38 INR 2.1 03/18/17 17:38 APTT 33 SECONDS (21-34) 03/18/17 17:38 - Constitutional Appears: Chronically Ill - Eye Exam Eye Exam: Normal appearance - ENT Exam ENT Exam: Mucous Membranes Moist - Neck Exam Neck Exam: Full ROM - Respiratory Exam Respiratory Exam: Decreased Breath Sounds - Cardiovascular Exam Cardiovascular Exam: Irregular Rhythm - GI/Abdominal Exam GI & Abdominal Exam: Normal Bowel Sounds - Rectal Exam Rectal Exam: Deferred - Extremities Exam Extremities Exam: Pedal Edema - Back Exam Back Exam: NORMAL INSPECTION - Neurological Exam Neurological Exam: Alert - Psychiatric Exam Psychiatric exam: Normal Affect - Skin Skin Exam: Normal Color Assessment and Plan (1) Anemia Assessment & Plan: follow hgb Status: Acute (2) Aortic stenosis Assessment & Plan: medical therapy Status: Acute (3) Ischemic cardiomyopathy Assessment & Plan: not stable for AICD Status: Acute (4) CAD (coronary artery disease) Assessment & Plan: continue antiplatelet Status: Chronic
[2017-03-21] MEDS ORDERED: Etomidate 20 mg/10ml Inj IV ONE (17:57)
[2017-03-21] MEDS ORDERED: Midazolam 2 MG/2 ML VIAL ONE (17:58)
[2017-03-21] MEDS ORDERED: Sodium Chloride 0.9% 500 ML IV ONE ×2 (18:00)
[2017-03-21] MEDS ORDERED: Fluconazole IV 400mg/200ml NS 200 ML IVPB STA (18:36)
--- NOTE | 2017-03-21 18:58 | CARD ---
APPROVED REPORT EXAM: Two-dimensional and M-mode echocardiogram with Doppler and color Doppler. Other Information Quality : GoodRhythm : INDICATION Dyspnea Peripheral Edema Atrial Fibrillation CAD RISK FACTORS Hypertension Diabetes 2D DIMENSIONS LVOT Diameter1.8 (1.8-2.4cm) M-Mode DIMENSIONS RVDd1.94 (2.1-3.2cm)Left Atrium (MM)4.79 (2.5-4.0cm) IVSd0.94 (0.7-1.1cm)Aortic Root3.36 (2.2-3.7cm) LVDd5.16 (4.0-5.6cm)Aortic Cusp Exc.0.70 (1.5-2.0cm) PWd0.88 (0.7-1.1cm)FS (%) 12 % LVDs4.56 (2.0-3.8cm)LVEF (%)25 (>50%) Aortic Valve AoV Peak Itszpcsu431.6cm/sAoV VTI59.4cmAO Peak GR.44mmHg LVOT Peak Wwhptoxi97.2cm/sLVOT VTI11.47cmAO Mean GR.23mmHg ANUP (VMAX)0.59xh9SQA (VTI)0.50cm2 Mitral Valve MV E Evtgalso023.8cm/sMV A Myxtjkcp33.2cm/sE/A ratio2.1 TDI E/Lateral E'0.0E/Medial E'0.0 Tricuspid Valve TR Peak Onlyipor934jf/sTR Peak Gr.06prVpFSPN54cjIp LEFT VENTRICLE The Left Ventricle is mildly dilated. There is normal left ventricular wall thickness. Left ventricle systolic function is severely impaired. The Ejection Fraction is 25-30%. Septal motion consistent with post-operative state. There is global hypokinesis of the left ventricle. Transmitral Doppler flow pattern is Grade II-pseudonormal filling dynamics. There is no ventricular septal defect visualized. RIGHT VENTRICLE The right ventricle is mildly dilated. Systolic function is mildly reduced. ATRIA The left atrium is moderately dilated. The right atrium is moderately dilated. AORTIC VALVE The aortic valve is moderately to severely sclerotic.calcified. The aortic valve is tri-cuspid. No aortic regurgitation is present. There is severe valvular aortic stenosis. Calculated aortic valve area is 0.5 cm2 with maximum pressure gradient of 54 mmHg . MITRAL VALVE Mitral annular calcification is moderate to severe. There is no evidence of mitral valve prolapse. Mitral regurgitation is moderate. TRICUSPID VALVE The tricuspid valve is normal in structure. There is moderate to severe tricuspid regurgitation. Right ventricular systolic pressure is estimated at greater than 60 mmHg. There is severe pulmonary hypertension. PULMONIC VALVE The pulmonic valve is not well visualized. There is moderate pulmonic valvular regurgitation. GREAT VESSELS The IVC is dilated. PERICARDIAL EFFUSION There is no pericardial effusion. There is moderate right pleural effusion. <Conclusion> Left ventricle systolic function is severely impaired. The Ejection Fraction is 25-30%. Septal motion consistent with post-operative state. There is global hypokinesis of the left ventricle. Transmitral Doppler flow pattern is Grade II-pseudonormal filling dynamics. There is severe valvular aortic stenosis. Mitral regurgitation is moderate. There is severe pulmonary hypertension.
[2017-03-21] MEDS: Potassium Chloride 20 MEQ in Dextrose 5%/0.9% NS 1,000 ML IV SCH (19:00)
--- NOTE | 2017-03-21 20:42 | VASCLAB ---
PROCEDURE: Lower Extremity Venous Duplex Exam. HISTORY: lower extremity edema PRIORS: None. TECHNIQUE: Bilateral common femoral, femoral, popliteal and posterior tibial, peroneal and great saphenous veins were evaluated. Flow was assessed with color Doppler, compressibility, assessment of phasic flow and augmentation response. Report prepared by SHERMAN Strange, RVT FINDINGS: RIGHT: 1. Common Femoral Vein: 1.1. Compressibility - Fully compressible: Thrombus - None : Flow - Phasic: Augmentation -Normal: Reflux - None. 2. Femoral Vein: 2.1. Compressibility - Fully compressible: Thrombus - None : Flow - Phasic: Augmentation -Normal: Reflux - None. 3. Popliteal Vein: 3.1. Compressibility - Fully compressible: Thrombus - None : Flow - Phasic: Augmentation -Normal: Reflux - None. 4. Posterior Tibial Vein: 4.1. Compressibility - Fully compressible: Thrombus - None: Flow - Phasic: Augmentation -Normal: Reflux - None. 5. Peroneal Vein: 5.1. Compressibility - Fully compressible: Thrombus - None: Flow - Phasic: Augmentation -Normal: Reflux - None. 6. Great Saphenous Vein: 6.1. Compressibility - Not optimally imaged LEFT: 1. Common Femoral Vein: 1.1. Compressibility - Fully compressible: Thrombus - None: Flow - Phasic: Augmentation -Normal: Reflux - None. 2. Femoral Vein: 2.1. Compressibility - Fully compressible: Thrombus - None: Flow - Phasic: Augmentation -Normal: Reflux - None. 3. Popliteal Vein: 3.1. Compressibility - Fully compressible: Thrombus - None : Flow - Phasic: Augmentation -Normal: Reflux - None. 4. Posterior Tibial Vein: 4.1. Compressibility - Fully compressible: Thrombus - None: Flow - Phasic: Augmentation -Normal: Reflux - None. 5. Peroneal Vein: 5.1. Compressibility - Fully compressible: Thrombus - None: Flow - Phasic: Augmentation -Normal: Reflux - None. 6. Great Saphenous Vein: 6.1. Compressibility - Fully compressible: Thrombus - None: Flow - Phasic: Augmentation - Normal: Reflux - None. OTHER FINDINGS: Right: The right greater saphenous vein has been previously removed. Extensive arterial wall calcifications. Lower extremity edema. Left: Lower extremity edema. IMPRESSION: Right: No evidence of deep or superficial vein thrombosis of the right lower extremity. Normal valve function noted of the right side. Left: No evidence of deep or superficial vein thrombosis of the left lower extremity. Normal valve function noted of the left side.
--- NOTE | 2017-03-21 22:04 | CP.PCM.PN ---
Subjective - Date & Time of Evaluation Date of Evaluation: 03/21/17 Time of Evaluation: 22:02 - Subjective Subjective: s/p prbc transfusion awaiting egd labs noted pt denies any nausea vomiting diarrhea. ng tube npo Objective - Vital Signs/Intake and Output Vital Signs (last 24 hours): Temp Pulse Resp BP Pulse Ox 97.9 F 90 11 L 99/61 L 97 03/21/17 08:00 03/21/17 19:36 03/21/17 19:36 03/21/17 19:36 03/21/17 19:36 Intake and Output: 03/21/17 03/22/17 18:59 06:59 Intake Total 740 60 Output Total 1944 45 Balance -1204 15 - Medications Medications: Current Medications Albuterol/Ipratropium (Duoneb 3 Mg/0.5 Mg (3 Ml) Ud) 3 ml INH RQ6 [facility] Last Admin: 03/21/17 19:51 Dose: 3 ml Amiodarone HCl (Cordarone) 200 mg PO DAILY [facility] Last Admin: 03/20/17 10:33 Dose: 200 mg Cilostazol (Pletal) 100 mg PO BID [facility] Last Admin: 03/21/17 19:02 Dose: Not Given Collagenase (Santyl) 1 gm TOP DAILY [facility] Last Admin: 03/21/17 11:00 Dose: Not Given Ferrous Sulfate (Feosol) 325 mg PO BID [facility] Last Admin: 03/21/17 18:59 Dose: Not Given Gabapentin (Neurontin) 100 mg PO BID [facility] Last Admin: 03/21/17 19:00 Dose: Not Given Pantoprazole Sodium 80 mg/ (Sodium Chloride) 100 mls @ 10 mls/hr IV .Q10H [facility] PRN Reason: 8 MG/HR Stop: 03/23/17 15:16 Last Admin: 03/21/17 16:02 Dose: 10 mls/hr Potassium Chloride 20 meq/ (Dextrose/Sodium Chloride) 1,010 mls @ 50 mls/hr IV .[id number] [facility] Last Admin: 03/21/17 19:00 Dose: 50 mls/hr Fluconazole (Diflucan Iv 200 Mg/100 Ml Ns) 100 mls @ 100 mls/hr IVPB DAILY [facility] Stop: 04/04/17 10:59 Insulin Aspart (Novolog) 0 unit SC Q6H [facility] PRN Reason: Protocol Last Admin: 03/21/17 19:01 Dose: Not Given Insulin Glargine (Lantus) 10 unit SC DAILY [facility] Last Admin: 03/21/17 09:59 Dose: Not Given Mupirocin (Bactroban Ointment) 0 gm TOP BID [facility] Last Admin: 03/21/17 18:58 Dose: Not Given Fluticasone/Salmeterol (Advair Diskus 100/50) 1 puff IH RQD [facility] - Labs Labs: 03/21/17 06:20 03/21/17 06:22 PT 24.6 SECONDS (9.7-12.2) H 03/18/17 17:38 INR 2.1 03/18/17 17:38 APTT 33 SECONDS (21-34) 03/18/17 17:38 - Constitutional Appears: Non-toxic, No Acute Distress, Older Than Stated Age, Chronically Ill - Head Exam Head Exam: NORMAL INSPECTION - Eye Exam Eye Exam: Normal appearance - ENT Exam ENT Exam: Mucous Membranes Dry Additional comments: ng tube - Neck Exam Neck Exam: Normal Inspection - Respiratory Exam Respiratory Exam: Clear to Ausculation Bilateral, NORMAL BREATHING PATTERN - Cardiovascular Exam Cardiovascular Exam: REGULAR RHYTHM, RRR - GI/Abdominal Exam GI & Abdominal Exam: Distended, Soft, Normal Bowel Sounds - Extremities Exam Extremities Exam: Pedal Edema (2+) - Neurological Exam Neurological Exam: Alert, Awake, Oriented x3 Assessment and Plan (1) LETICIA (acute kidney injury) Status: Acute (2) Acute exacerbation of CHF (congestive heart failure) Status: Acute (3) Shortness of breath Status: Acute (4) CHF (congestive heart failure) Status: Chronic (5) A-fib Status: Acute (6) GI bleed Status: Acute (7) HTN (hypertension) Status: Acute - Assessment and Plan (Free Text) Assessment: renal function improving recommend dc iv fluids consider one dose of iv lasix 40 mg if bp stable GI work up follow spep
[2017-03-22] MEDS: Pantoprazole 80 MG in Sodium Chloride 0.9% 100 ML IV SCH ×2 (01:15→07:30)
[2017-03-22] MEDS: Albuterol-Ipratrop 3 mg / 0.5 (3 ml) UD INH SCH ×4 (01:18→19:25)
[2017-03-22] MEDS: (Novolog) Insulin Aspart, Recombinant 100 u/ml 10 ml vial SC SCH ×5 (05:56→22:00)
[2017-03-22 06:26] LABS: BASO % 0.3 % (0.0-2.0); EOS # 0.2 K/uL (0.0-0.7); EOS % 2.5 % (0.0-4.0); LYMPH # 0.8 K/uL (1.0-4.3); LYMPH % 9.5 % (20.0-40.0); MEAN CELL VOLUME 84.9 fL (80.0-94.0); MEAN CORPUSCULAR HEMOGLOBIN 26.4 pg (27.0-31.0); MEAN CORPUSCULAR HGB CONC 31.2 g/dL (33.0-37.0); MEAN PLATELET VOLUME 7.9 fL (7.2-11.7); MONO # 0.5 K/uL (0.0-0.8); MONO % 6.4 % (0.0-10.0); NEUT # 6.9 K/uL (1.8-7.0); NEUT % 81.3 % (50.0-75.0); NRBC % 0.1 % (0.0-2.0); PLATELET COUNT 360 K/uL (130-400); RBC 3.79 Mil/uL (4.40-5.90); RED CELL DISTRIBUTION WIDTH 17.8 % (11.5-14.5); WHITE BLOOD COUNT 8.4 K/uL (4.8-10.8)
[2017-03-22 06:30] LABS: URINE BILIRUBIN NEGATIVE (NEGATIVE); URINE BLOOD NEGATIVE (NEGATIVE); URINE CLARITY Clear (Clear); URINE COLOR Yellow (YELLOW); URINE GLUCOSE (UA) NORMAL (Normal); URINE LEUKOCYTE ESTERASE NEG Leu/uL (Negative); URINE NITRATE NEGATIVE (NEGATIVE); URINE PROTEIN NEGATIVE (NEGATIVE); URINE UROBILINOGEN NORMAL mg/dL (0.2-1.0)
[2017-03-22 06:44] LABS: ALBUMIN 2.8 g/dL (3.5-5.0)
[2017-03-22 06:47] LABS: ALB/GLOB RATIO 0.8 (1.0-2.1); AST/SGOT 13 U/L (17-59); BLOOD UREA NITROGEN 55 mg/dL (9-20); GFR AFRICAN-AMERICAN > 60; GFR NON-AFRICAN AMERICAN 50
[2017-03-22 06:48] LABS: ALT/SGPT 9 U/L (21-72); CALCIUM 8.4 mg/dl (8.6-10.4); MAGNESIUM 1.8 mg/dL (1.6-2.3)
--- NOTE | 2017-03-22 09:05 | CP.PCM.PN ---
Subjective - Date & Time of Evaluation Date of Evaluation: 03/22/17 Time of Evaluation: 09:00 - Subjective Subjective: output 2902 afebrile renal function stable awake alert comfortable eating breakfast No headache,dizziness no sob chest pain cough,no hemoptysis no abd pain nausea vomiting diarrhea no dysuria Objective - Vital Signs/Intake and Output Vital Signs (last 24 hours): Temp Pulse Resp BP Pulse Ox 97.4 F L 100 H 10 L 127/82 100 03/22/17 08:00 03/22/17 08:21 03/22/17 08:21 03/22/17 08:22 03/22/17 08:21 Intake and Output: 03/22/17 03/22/17 06:59 18:59 Intake Total 1540 220 Output Total 958 383 Balance 582 -163 - Medications Medications: Current Medications Albuterol/Ipratropium (Duoneb 3 Mg/0.5 Mg (3 Ml) Ud) 3 ml INH RQ6 [facility] Last Admin: 03/22/17 07:47 Dose: 3 ml Amiodarone HCl (Cordarone) 200 mg PO DAILY [facility] Last Admin: 03/21/17 21:00 Dose: Not Given Cilostazol (Pletal) 100 mg PO BID [facility] Last Admin: 03/21/17 19:02 Dose: Not Given Collagenase (Santyl) 1 gm TOP DAILY [facility] Last Admin: 03/21/17 11:00 Dose: Not Given Ferrous Sulfate (Feosol) 325 mg PO BID [facility] Last Admin: 03/21/17 18:59 Dose: Not Given Gabapentin (Neurontin) 100 mg PO BID [facility] Last Admin: 03/21/17 19:00 Dose: Not Given Pantoprazole Sodium 80 mg/ (Sodium Chloride) 100 mls @ 10 mls/hr IV .Q10H [facility] PRN Reason: 8 MG/HR Stop: 03/23/17 15:16 Last Admin: 03/22/17 01:15 Dose: 10 mls/hr Potassium Chloride 20 meq/ (Dextrose/Sodium Chloride) 1,010 mls @ 50 mls/hr IV .[id number] [facility] Last Admin: 03/21/17 19:00 Dose: 50 mls/hr Fluconazole (Diflucan Iv 200 Mg/100 Ml Ns) 100 mls @ 100 mls/hr IVPB DAILY [facility] Stop: 04/04/17 10:59 Insulin Aspart (Novolog) 0 unit SC Q6H [facility] PRN Reason: Protocol Last Admin: 03/22/17 05:56 Dose: 2 unit Insulin Glargine (Lantus) 10 unit SC DAILY [facility] Last Admin: 03/21/17 09:59 Dose: Not Given Mupirocin (Bactroban Ointment) 0 gm TOP BID [facility] Last Admin: 03/21/17 18:58 Dose: Not Given Fluticasone/Salmeterol (Advair Diskus 100/50) 1 puff IH RQD [facility] - Labs Labs: 03/22/17 06:17 03/22/17 06:17 PT 24.6 SECONDS (9.7-12.2) H 03/18/17 17:38 INR 2.1 03/18/17 17:38 APTT 33 SECONDS (21-34) 03/18/17 17:38 - Constitutional Appears: No Acute Distress - Eye Exam Eye Exam: absent: Conjunctival injection - ENT Exam ENT Exam: Mucous Membranes Moist - Respiratory Exam Respiratory Exam: Clear to Ausculation Bilateral - Cardiovascular Exam Cardiovascular Exam: Irregular Rhythm - GI/Abdominal Exam GI & Abdominal Exam: Distended, Soft. absent: Tenderness - Neurological Exam Neurological Exam: Alert - Psychiatric Exam Psychiatric exam: absent: Agitated - Skin Skin Exam: Dry Assessment and Plan (1) LETICIA (acute kidney injury) Status: Acute (2) Acute exacerbation of CHF (congestive heart failure) Status: Acute (3) HTN (hypertension) Status: Acute (4) Hx of coronary artery disease Status: Acute (5) Diabetes Status: Chronic (6) History of atrial fibrillation Status: Chronic - Assessment and Plan (Free Text) Plan: continue supportive care follow cardiology recommendation diurtics as needed follow chems closely
[2017-03-22 09:21] LABS: EOSINOPHIL 1 % (0-4); LYMPHOCYTE 12 % (20-40); MONOCYTE 4 % (0-10); NEUTROPHIL 83 % (50-75); PLATELET ESTIMATE NORMAL (NORMAL); TOTAL CELLS COUNTED 100
[2017-03-22 09:22] LABS: ANISOCYTOSIS SLIGHT; HYPOCHROMIC SLIGHT; OVALOCYTES SLIGHT; POIKILOCYTOSIS SLIGHT; SCHISTOCYTES SLIGHT; TEARDROP CELLS SLIGHT; TOXIC GRANULATION PRESENT
[2017-03-22 09:23] LABS: BURR CELLS SLIGHT; SPHEROCYTES SLIGHT
[2017-03-22 09:24] LABS: LARGE PLATELETS PRESENT
--- NOTE | 2017-03-22 09:51 | CP.PCM.PN ---
Subjective - Date & Time of Evaluation Date of Evaluation: 03/21/17 Time of Evaluation: 15:30 - Subjective Subjective: Patient was seen and examined at bedside in ICU Patient is nothing by mouth with NG tube in Plan for EGD today Objective - Vital Signs/Intake and Output Vital Signs (last 24 hours): Temp Pulse Resp BP Pulse Ox 97.4 F L 100 H 10 L 127/82 100 03/22/17 08:00 03/22/17 08:21 03/22/17 08:21 03/22/17 08:22 03/22/17 08:21 Intake and Output: 03/22/17 03/22/17 06:59 18:59 Intake Total 1540 220 Output Total 958 383 Balance 582 -163 - Medications Medications: Current Medications Albuterol/Ipratropium (Duoneb 3 Mg/0.5 Mg (3 Ml) Ud) 3 ml INH RQ6 [facility] Last Admin: 03/22/17 07:47 Dose: 3 ml Amiodarone HCl (Cordarone) 200 mg PO DAILY [facility] Last Admin: 03/21/17 21:00 Dose: Not Given Cilostazol (Pletal) 100 mg PO BID [facility] Last Admin: 03/21/17 19:02 Dose: Not Given Collagenase (Santyl) 1 gm TOP DAILY [facility] Last Admin: 03/21/17 11:00 Dose: Not Given Ferrous Sulfate (Feosol) 325 mg PO BID [facility] Last Admin: 03/21/17 18:59 Dose: Not Given Gabapentin (Neurontin) 100 mg PO BID [facility] Last Admin: 03/21/17 19:00 Dose: Not Given Pantoprazole Sodium 80 mg/ (Sodium Chloride) 100 mls @ 10 mls/hr IV .Q10H [facility] PRN Reason: 8 MG/HR Stop: 03/23/17 15:16 Last Admin: 03/22/17 01:15 Dose: 10 mls/hr Potassium Chloride 20 meq/ (Dextrose/Sodium Chloride) 1,010 mls @ 50 mls/hr IV .[id number] [facility] Last Admin: 03/21/17 19:00 Dose: 50 mls/hr Fluconazole (Diflucan Iv 200 Mg/100 Ml Ns) 100 mls @ 100 mls/hr IVPB DAILY [facility] Stop: 04/04/17 10:59 Imipenem/Cilastatin Sodium 250 (mg/ Sodium Chloride) 100 mls @ 100 mls/hr IVPB Q6H [facility] Insulin Aspart (Novolog) 0 unit SC Q6H [facility] PRN Reason: Protocol Last Admin: 03/22/17 05:56 Dose: 2 unit Insulin Glargine (Lantus) 10 unit SC DAILY [facility] Last Admin: 03/21/17 09:59 Dose: Not Given Mupirocin (Bactroban Ointment) 0 gm TOP BID [facility] Last Admin: 03/21/17 18:58 Dose: Not Given Fluticasone/Salmeterol (Advair Diskus 100/50) 1 puff IH RQD [facility] - Labs Labs: 03/22/17 06:17 03/22/17 06:17 PT 24.6 SECONDS (9.7-12.2) H 03/18/17 17:38 INR 2.1 03/18/17 17:38 APTT 33 SECONDS (21-34) 03/18/17 17:38 - Head Exam Head Exam: ATRAUMATIC, NORMOCEPHALIC - Eye Exam Eye Exam: Normal appearance - ENT Exam ENT Exam: Mucous Membranes Moist - Neck Exam Additional comments: JVD positive - Respiratory Exam Respiratory Exam: Rales, Wheezes - Cardiovascular Exam Cardiovascular Exam: REGULAR RHYTHM, +S1, +S2 - GI/Abdominal Exam GI & Abdominal Exam: Soft. absent: Tenderness - Extremities Exam Extremities Exam: Pedal Edema Additional comments: Bilateral 3+ pitting edema Assessment and Plan (1) LETICIA (acute kidney injury) Status: Acute (2) Acute exacerbation of CHF (congestive heart failure) Status: Acute (3) A-fib Status: Acute (4) HTN (hypertension) Status: Acute (5) Hx of CABG Status: Acute (6) Diabetes mellitus with hyperglycemia Status: Chronic (7) Hyperlipidemia Status: Chronic (8) Peripheral vascular disease Status: Chronic (9) Anemia Status: Acute - Assessment and Plan (Free Text) Plan: Plan for EGD today. Follow-up GI recommendations Continue management for acute CHF. As per the the recommendation of cardiology Status post PRBC transfusion No active bleeding at this time. Discussed the plan of care with the ICU resident.
[2017-03-22] MEDS: Fluconazole IV 200mg/100 ml NS 100 ML IVPB SCH (10:15)
[2017-03-22] MEDS: (Lantus) Insulin Glargine, Recombinant SC SCH (10:15)
[2017-03-22] MEDS: Cilostazol 100 mg Tab UD PO SCH ×2 (10:16→17:36)
[2017-03-22] MEDS: Collagenase 250 Units/gm Ointment(30 gm) TOP SCH (10:24)
[2017-03-22] MEDS: Fluticasone-Salmeterol 100-50mcg Diskus IH SCH ×3 (10:25→10:27)
--- NOTE | 2017-03-22 11:20 | CP.PCM.PN ---
Subjective - Date & Time of Evaluation Date of Evaluation: 03/22/17 Time of Evaluation: 09:30 - Subjective Subjective: 71 year old male was seen bedside with attending Dr. Barnes. Patient is more oriented today. Dressings to LE clean, dry and intact. Patient has no other pedal complaints at this time. Denies n/v/sob/cp/chills or f. Objective - Vital Signs/Intake and Output Vital Signs (last 24 hours): Temp Pulse Resp BP Pulse Ox 97.4 F L 106 H 12 107/58 L 100 03/22/17 08:00 03/22/17 10:25 03/22/17 10:25 03/22/17 10:25 03/22/17 10:25 Intake and Output: 03/22/17 03/22/17 06:59 18:59 Intake Total 1540 710 Output Total 958 383 Balance 582 327 - Medications Medications: Current Medications Albuterol/Ipratropium (Duoneb 3 Mg/0.5 Mg (3 Ml) Ud) 3 ml INH RQ6 [facility] Last Admin: 03/22/17 07:47 Dose: 3 ml Amiodarone HCl (Cordarone) 200 mg PO DAILY [facility] Last Admin: 03/22/17 10:16 Dose: 200 mg Cilostazol (Pletal) 100 mg PO BID [facility] Last Admin: 03/22/17 10:16 Dose: 100 mg Collagenase (Santyl) 1 gm TOP DAILY [facility] Last Admin: 03/22/17 10:24 Dose: 1 applic Ferrous Sulfate (Feosol) 325 mg PO BID [facility] Last Admin: 03/22/17 10:16 Dose: 325 mg Gabapentin (Neurontin) 100 mg PO BID [facility] Last Admin: 03/22/17 10:16 Dose: 100 mg Pantoprazole Sodium 80 mg/ (Sodium Chloride) 100 mls @ 10 mls/hr IV .Q10H [facility] PRN Reason: 8 MG/HR Stop: 03/23/17 15:16 Last Admin: 03/22/17 07:30 Dose: Not Given Potassium Chloride 20 meq/ (Dextrose/Sodium Chloride) 1,010 mls @ 50 mls/hr IV .[id number] [facility] Last Admin: 03/21/17 19:00 Dose: 50 mls/hr Fluconazole (Diflucan Iv 200 Mg/100 Ml Ns) 100 mls @ 100 mls/hr IVPB DAILY [facility] Stop: 04/04/17 10:59 Last Admin: 03/22/17 10:15 Dose: 100 mls/hr Imipenem/Cilastatin Sodium 250 (mg/ Sodium Chloride) 100 mls @ 100 mls/hr IVPB Q6H [facility] Insulin Aspart (Novolog) 0 unit SC ACHS [facility] PRN Reason: Protocol Insulin Glargine (Lantus) 10 unit SC DAILY [facility] Last Admin: 03/22/17 10:15 Dose: 10 u Mupirocin (Bactroban Ointment) 0 gm TOP BID [facility] Last Admin: 03/22/17 10:23 Dose: 1 applic Fluticasone/Salmeterol (Advair Diskus 100/50) 1 puff IH RQD [facility] Last Admin: 03/22/17 10:27 Dose: 1 puff - Labs Labs: 03/22/17 06:17 03/22/17 06:17 PT 24.6 SECONDS (9.7-12.2) H 03/18/17 17:38 INR 2.1 03/18/17 17:38 APTT 33 SECONDS (21-34) 03/18/17 17:38 - Constitutional Appears: Well, Non-toxic, No Acute Distress - Extremities Exam Additional comments: Vasc: DP and PT is faintly palpable. [employer] is ~4 seconds bilaterally. No peripheral edema noted. LLE is cool to cool from knees to toes distally. Ortho: No pain with palpation. Neuro: diminished protective sensation bilaterally Derm: Eschar noted to the distal aspect of TMA site on the right foot. No clinical signs of infection: no erythema, no tunneling, no purulence, no drainage, or no malodor noted. - Neurological Exam Neurological Exam: Alert, Awake, Oriented x3 - Psychiatric Exam Psychiatric exam: Normal Affect, Normal Mood Assessment and Plan - Assessment and Plan (Free Text) Assessment: 71 y/o male with B/L TMA, with Plan: -Patient seen and evaluated at bedside with attending Dr. Barnes -Charts and vitals reviewed. -Left dressing change with DSD and kerlix -Order Santyl, to be applied daily -No surgical intervention planned at this time. -Will continue to follow while in hospital.
--- NOTE | 2017-03-22 11:53 | CP.PCM.PN ---
Subjective - Date & Time of Evaluation Date of Evaluation: 03/22/17 Time of Evaluation: 11:51 - Subjective Subjective: Covering Dr Ag CC: Follow up anemia Alissa esophagitis and Hiatal hernia on EGD Hgb stable. D/W RN no overt GI bleeding. Tolerated diet. C/O Dyspnea Objective - Vital Signs/Intake and Output Vital Signs (last 24 hours): Temp Pulse Resp BP Pulse Ox 97.4 F L 104 H 17 107/58 L 100 03/22/17 08:00 03/22/17 11:00 03/22/17 11:00 03/22/17 10:25 03/22/17 11:00 Intake and Output: 03/22/17 03/22/17 06:59 18:59 Intake Total 1540 770 Output Total 958 383 Balance 582 387 - Medications Medications: Current Medications Albuterol/Ipratropium (Duoneb 3 Mg/0.5 Mg (3 Ml) Ud) 3 ml INH RQ6 [facility] Last Admin: 03/22/17 07:47 Dose: 3 ml Amiodarone HCl (Cordarone) 200 mg PO DAILY [facility] Last Admin: 03/22/17 10:16 Dose: 200 mg Cilostazol (Pletal) 100 mg PO BID [facility] Last Admin: 03/22/17 10:16 Dose: 100 mg Collagenase (Santyl) 1 gm TOP DAILY [facility] Last Admin: 03/22/17 10:24 Dose: 1 applic Ferrous Sulfate (Feosol) 325 mg PO BID [facility] Last Admin: 03/22/17 10:16 Dose: 325 mg Gabapentin (Neurontin) 100 mg PO BID [facility] Last Admin: 03/22/17 10:16 Dose: 100 mg Pantoprazole Sodium 80 mg/ (Sodium Chloride) 100 mls @ 10 mls/hr IV .Q10H [facility] PRN Reason: 8 MG/HR Stop: 03/23/17 15:16 Last Admin: 03/22/17 07:30 Dose: Not Given Potassium Chloride 20 meq/ (Dextrose/Sodium Chloride) 1,010 mls @ 50 mls/hr IV .[id number] [facility] Last Admin: 03/21/17 19:00 Dose: 50 mls/hr Fluconazole (Diflucan Iv 200 Mg/100 Ml Ns) 100 mls @ 100 mls/hr IVPB DAILY [facility] Stop: 04/04/17 10:59 Last Admin: 03/22/17 10:15 Dose: 100 mls/hr Imipenem/Cilastatin Sodium 250 (mg/ Sodium Chloride) 100 mls @ 100 mls/hr IVPB Q6H [facility] Insulin Aspart (Novolog) 0 unit SC ACHS [facility] PRN Reason: Protocol Insulin Glargine (Lantus) 10 unit SC DAILY [facility] Last Admin: 03/22/17 10:15 Dose: 10 u Mupirocin (Bactroban Ointment) 0 gm TOP BID [facility] Last Admin: 03/22/17 10:23 Dose: 1 applic Fluticasone/Salmeterol (Advair Diskus 100/50) 1 puff IH RQD [facility] Last Admin: 03/22/17 10:27 Dose: 1 puff - Labs Labs: 03/22/17 06:17 03/22/17 06:17 PT 24.6 SECONDS (9.7-12.2) H 03/18/17 17:38 INR 2.1 03/18/17 17:38 APTT 33 SECONDS (21-34) 03/18/17 17:38 - Constitutional Appears: No Acute Distress, Chronically Ill - Head Exam Head Exam: NORMOCEPHALIC - Eye Exam Eye Exam: absent: Scleral icterus - Respiratory Exam Respiratory Exam: Decreased Breath Sounds - Cardiovascular Exam Cardiovascular Exam: REGULAR RHYTHM - GI/Abdominal Exam GI & Abdominal Exam: Soft. absent: Tenderness Assessment and Plan (1) Acute exacerbation of CHF (congestive heart failure) Assessment & Plan: Managed by PCP In ICU Status: Acute (2) Anemia Assessment & Plan: EGD- neg Hgb stable Will monitor Not a candidate for colonoscopy in his current condition Status: Chronic
[2017-03-22] MEDS: Potassium Chloride 20 MEQ in Dextrose 5%/0.9% NS 1,000 ML IV SCH (12:10)
[2017-03-22] MEDS: Imipenem/Cilastatin 250 MG in Sodium Chloride 100 ML IVPB SCH ×2 (12:11→17:36)
--- NOTE | 2017-03-22 14:51 | CP.PCM.PN ---
Subjective - Date & Time of Evaluation Date of Evaluation: 03/22/17 Time of Evaluation: 13:00 - Subjective Subjective: Patient was seen and examined in ICU Patient to not in any acute distress at this time Still complains of cough but expectoration is scanty Objective - Vital Signs/Intake and Output Vital Signs (last 24 hours): Temp Pulse Resp BP Pulse Ox 97.3 F L 97 H 13 106/62 100 03/22/17 12:00 03/22/17 12:24 03/22/17 12:24 03/22/17 12:24 03/22/17 12:24 Intake and Output: 03/22/17 03/22/17 06:59 18:59 Intake Total 1540 990 Output Total 958 583 Balance 582 407 - Medications Medications: Current Medications Albuterol/Ipratropium (Duoneb 3 Mg/0.5 Mg (3 Ml) Ud) 3 ml INH RQ6 [facility] Last Admin: 03/22/17 13:29 Dose: 3 ml Amiodarone HCl (Cordarone) 200 mg PO DAILY [facility] Last Admin: 03/22/17 10:16 Dose: 200 mg Cilostazol (Pletal) 100 mg PO BID [facility] Last Admin: 03/22/17 10:16 Dose: 100 mg Collagenase (Santyl) 1 gm TOP DAILY [facility] Last Admin: 03/22/17 10:24 Dose: 1 applic Ferrous Sulfate (Feosol) 325 mg PO BID [facility] Last Admin: 03/22/17 10:16 Dose: 325 mg Gabapentin (Neurontin) 100 mg PO BID [facility] Last Admin: 03/22/17 10:16 Dose: 100 mg Potassium Chloride 20 meq/ (Dextrose/Sodium Chloride) 1,010 mls @ 50 mls/hr IV .[id number] [facility] Last Admin: 03/22/17 12:10 Dose: 50 mls/hr Fluconazole (Diflucan Iv 200 Mg/100 Ml Ns) 100 mls @ 100 mls/hr IVPB DAILY [facility] Stop: 04/04/17 10:59 Last Admin: 03/22/17 10:15 Dose: 100 mls/hr Imipenem/Cilastatin Sodium 250 (mg/ Sodium Chloride) 100 mls @ 100 mls/hr IVPB Q6H [facility] Last Admin: 03/22/17 12:11 Dose: 100 mls/hr Insulin Aspart (Novolog) 0 unit SC ACHS [facility] PRN Reason: Protocol Last Admin: 03/22/17 12:09 Dose: 2 unit Insulin Glargine (Lantus) 10 unit SC DAILY [facility] Last Admin: 03/22/17 10:15 Dose: 10 u Mupirocin (Bactroban Ointment) 0 gm TOP BID [facility] Last Admin: 03/22/17 10:23 Dose: 1 applic Pantoprazole Sodium (Protonix Ec Tab) 40 mg PO DAILY [facility] Fluticasone/Salmeterol (Advair Diskus 100/50) 1 puff IH RQD [facility] Last Admin: 03/22/17 10:27 Dose: 1 puff - Labs Labs: 03/22/17 06:17 03/22/17 06:17 PT 24.6 SECONDS (9.7-12.2) H 03/18/17 17:38 INR 2.1 03/18/17 17:38 APTT 33 SECONDS (21-34) 03/18/17 17:38 - Head Exam Head Exam: ATRAUMATIC, NORMOCEPHALIC - Eye Exam Eye Exam: EOMI, PERRL - ENT Exam ENT Exam: Mucous Membranes Moist - Neck Exam Neck Exam: Normal Inspection - Respiratory Exam Respiratory Exam: Rales, Wheezes - Cardiovascular Exam Cardiovascular Exam: REGULAR RHYTHM, +S1, +S2 - GI/Abdominal Exam GI & Abdominal Exam: Soft. absent: Tenderness - Extremities Exam Extremities Exam: Pedal Edema Additional comments: Bilateral 3+ pitting edema. - Neurological Exam Neurological Exam: Alert, Awake Assessment and Plan (1) LETICIA (acute kidney injury) Assessment & Plan: Possibly secondary to diuresis. Improving. Nephrology on board. Diuretics on hold because of hypotension Status: Acute (2) Acute exacerbation of CHF (congestive heart failure) Assessment & Plan: Patient is on diuretics but they're on hold because of hypotension Status: Acute (3) A-fib Assessment & Plan: Anticoagulation on hold because of for anemia and possible bleed Continue amiodarone. Cardiology is on board Status: Acute (4) HTN (hypertension) Assessment & Plan: Patient has hypotension now. As to the medications are on hold. Status: Acute (5) Hx of CABG Assessment & Plan: Continue medical management as per cardiology. Status: Acute (6) Diabetes mellitus with hyperglycemia Assessment & Plan: Patient is on Lantus. Blood sugar is controlled. Status: Chronic (7) Hyperlipidemia Assessment & Plan: Continue statin. Status: Chronic (8) Peripheral vascular disease Assessment & Plan: Patient is on Pletal. Status: Chronic (9) Anemia Assessment & Plan: Status post 3 units of PRBC. No active GI bleed noted on EGD. Status: Acute (10) Esophageal candidiasis Assessment & Plan: On Diflucan. Status: Acute (11) UTI due to extended-spectrum beta lactamase (ESBL) producing Escherichia coli Assessment & Plan: Patient started on imipenem. Status: Acute
--- NOTE | 2017-03-22 15:05 | RAD ---
HISTORY: CHF COMPARISON: 03/20/2017 FINDINGS: LUNGS: Linear scar/atelectasis at right lung base. PLEURA: Small right pleural effusion. No definite left pleural effusion left costophrenic angle is not included on this examination. CARDIOVASCULAR: Mild cardiomegaly. Sternotomy wires. OSSEOUS STRUCTURES: No significant abnormalities. VISUALIZED UPPER ABDOMEN: Normal. OTHER FINDINGS: None. IMPRESSION: Small right pleural effusion. Mild cardiomegaly. Limited examination.
--- NOTE | 2017-03-22 15:19 | CARD ---
APPROVED REPORT EKG Measurement Heart [id number] <Conclusion> Atrial fibrillation Left axis deviation Left bundle branch block Abnormal ECG
--- NOTE | 2017-03-22 15:23 | CARD ---
APPROVED REPORT EKG Measurement Heart [id number] <Conclusion> Atrial fibrillation with rapid ventricular response Left bundle branch block Abnormal ECG
--- NOTE | 2017-03-22 15:50 | CP.CCUPN ---
CCU Subjective - Physician Review Events Since Last Encounter (Free Text): 03/22/17 15:47 patient seen and examined in the intensive care Unit. Case discussed with house staff in the morning rounds. 71 M PMHx of CAD, CABG, AFib, DM w/ b/l toe amp, PVD, HTN, chronic anemia admitted for acute on chronic anemia, guiaic positive and hypotension Status post transfusion of 3 units PRBCs and endoscopy consistent with gastritis on Protonix drip Complaining of productive cough with scanty phlegm Shortness of breath on minimal exertion CCU Objective - Vital Signs / Intake & Output Vital Signs (Last 4 hours): Vital Signs Temp Pulse Resp BP Pulse Ox 03/22/17 15:00 95 H 12 100 03/22/17 14:24 99 H 14 102/63 100 03/22/17 14:00 99 H 13 100 03/22/17 13:24 106 H 17 110/63 100 03/22/17 13:00 96 H 11 L 100 03/22/17 12:24 97 H 13 106/62 100 03/22/17 12:00 97.3 F L 101 H 11 L 100 Intake and Output (Last 8hrs): Intake & Output 03/22/17 03/22/17 03/22/17 06:59 14:59 22:59 Intake Total 1300 1190 50 Output Total 664 583 Balance 636 607 50 Weight 176 lb 10 oz Intake: Intake, IV Amount 480 550 50 Right PICC 400 500 50 Right PICC #2 80 50 Oral 820 640 Output: Urine 664 583 Urine, Voided 664 583 Stool 0 Other: # Voids Urine, Voided 1 - Physical Exam Head: Positive for: Atraumatic, Normocephalic Pupils: Positive for: PERRL Extroacular Muscles: Positive for: EOMI Conjunctiva: Positive for: Normal. Negative for: Injected, Icteric Mouth: Positive for: Moist Mucous Membranes Nose (External): Positive for: Other (NGT in place) Neck: Positive for: Normal Range of Motion Respiratory/Chest: Positive for: Wheezes, Rhonchi. Negative for: Respiratory Distress, Accessory Muscle Use, Rales Cardiovascular: Positive for: Murmurs (L sternal border), Normal S1, S2, Irregular Rhythm. Negative for: Regular Rate and Rhythm Abdomen: Positive for: Distention, Normal Bowel Sounds. Negative for: Tenderness Upper Extremity: Positive for: Normal Inspection, Other (R arm PICC line in place). Negative for: Edema Lower Extremity: Positive for: Edema (+3 to knees b/l). Negative for: Normal Inspection Neurological: Positive for: GCS=15, CN II-XII Intact, Speech Normal Skin: Positive for: Warm, Dry, Normal Color Psychiatric: Positive for: Alert, Oriented x 3, Normal Insight, Normal Concentration - Medications Active Medications: Active Medications Generic Name Dose Route Start Last Admin Trade Name Freq PRN Reason Stop Dose Admin Albuterol/Ipratropium 3 ml 03/18/17 20:00 03/22/17 13:29 Duoneb 3 Mg/0.5 Mg (3 Ml) Ud INH 3 ml RQ6 [facility] Administration Amiodarone HCl 200 mg 03/19/17 10:00 03/22/17 10:16 Cordarone PO 200 mg DAILY [facility] Administration Cilostazol 100 mg 03/18/17 18:00 03/22/17 10:16 Pletal PO 100 mg BID [facility] Administration Collagenase 1 gm 03/21/17 10:00 03/22/17 10:24 Santyl TOP 1 applic DAILY [facility] Administration Ferrous Sulfate 325 mg 03/18/17 18:00 03/22/17 10:16 Feosol PO 325 mg BID [facility] Administration Gabapentin 100 mg 03/18/17 18:00 03/22/17 10:16 Neurontin PO 100 mg BID [facility] Administration Potassium Chloride 20 meq/ 1,010 mls @ 50 mls/hr 03/21/17 15:13 03/22/17 12: 10 Dextrose/Sodium Chloride IV 50 mls/hr .[id number] [facility] Administration Fluconazole 100 mls @ 100 mls/hr 03/22/17 10:00 03/22/17 10:15 Diflucan Iv 200 Mg/100 Ml Ns IVPB 04/04/17 10:59 100 mls/hr DAILY [facility] Administration Imipenem/Cilastatin Sodium 250 100 mls @ 100 mls/hr 03/22/17 12:00 03/22/17 12:11 mg/ Sodium Chloride IVPB 100 mls/hr Q6H [facility] Administration Insulin Aspart 0 unit 03/22/17 11:30 03/22/17 12:09 Novolog SC 2 unit ACHS [facility] Administration Protocol Insulin Glargine 10 unit 03/19/17 10:00 03/22/17 10:15 Lantus SC 10 u DAILY [facility] Administration Mupirocin 0 gm 03/18/17 18:00 03/22/17 10:23 Bactroban Ointment TOP 1 applic BID [facility] Administration Pantoprazole Sodium 40 mg 03/23/17 10:00 Protonix Ec Tab PO DAILY [facility] Fluticasone/Salmeterol 1 puff 03/18/17 16:45 03/22/17 10:27 Advair Diskus 100/50 IH 1 puff RQD [facility] Administration - Patient Studies Lab Studies: Microbiology Studies 03/20/17 04:52 Urine Culture - Final Urine,Clean Catch Escherichia Coli 03/20/17 Unknown MRSA Culture - Final Nose MRSA NOT DETECTED Lab Studies 03/22/17 03/22/17 03/22/17 Range/Units 11:17 06:17 06:17 WBC 8.4 (4.8-10.8) K/uL RBC 3.79 L (4.40-5.90) Mil/uL Hgb 10.0 L (12.0-18.0) g/dL Hct 32.1 L (35.0-51.0) % MCV 84.9 (80.0-94.0) fL MCH 26.4 L (27.0-31.0) pg MCHC 31.2 L (33.0-37.0) g/dL RDW 17.8 H (11.5-14.5) % Plt Count 360 (130-400) K/uL MPV 7.9 (7.2-11.7) fL Neut % (Auto) 81.3 H (50.0-75.0) % Lymph % (Auto) 9.5 L (20.0-40.0) % Towns % (Auto) 6.4 (0.0-10.0) % Eos % (Auto) 2.5 (0.0-4.0) % Baso % (Auto) 0.3 (0.0-2.0) % Neut # 6.9 (1.8-7.0) K/uL Lymph # 0.8 L (1.0-4.3) K/uL [place] # 0.5 (0.0-0.8) K/uL Eos # 0.2 (0.0-0.7) K/uL Baso # 0.0 (0.0-0.2) K/uL Neutrophils % (Manual) 83 H (50-75) % Lymphocytes % (Manual) 12 L (20-40) % Monocytes % (Manual) 4 (0-10) % Eosinophils % (Manual) 1 (0-4) % Toxic Granulation Present Platelet Estimate Normal (NORMAL) Large Platelets Present Hypochromasia (manual) Slight Poikilocytosis (manual Slight Anisocytosis (manual) Slight Spherocytes Slight Tear Drop Cells Slight Ovalocytes Slight [place] Cells Slight Schistocytes Slight Sodium 141 (132-148) mmol/L Potassium 3.9 (3.6-5.2) mmol/L Chloride 104 (98-107) mmol/L Carbon Dioxide 26 (22-30) mmol/L Anion Gap 15 (10-20) BUN 55 H (9-20) mg/dL Creatinine 1.4 (0.8-1.5) MG/DL Est GFR ( Amer) > 60 Est GFR (Non-Af Amer) 50 POC Glucose (mg/dL) 170 H (65-110) mg/dL Random Glucose 153 H (75-110) mg/dL Calcium 8.4 L (8.6-10.4) mg/dl Phosphorus 3.5 (2.5-4.5) mg/dL Magnesium 1.8 (1.6-2.3) mg/dL Total Bilirubin 1.2 (0.2-1.3) mg/dL AST 13 L D (17-59) U/L ALT 9 L D (21-72) U/L Alkaline Phosphatase 77 (38-126) U/L Total Protein 6.4 (6.3-8.3) g/dL Albumin 2.8 L (3.5-5.0) g/dL Globulin 3.6 (2.2-3.9) gm/dL Albumin/Globulin Ratio 0.8 L (1.0-2.1) Urine Color (YELLOW) Urine Clarity (Clear) Urine pH (5.0-8.0) Ur Specific [place] (1.003-1.030) Urine Protein (NEGATIVE) mg/dL Urine Glucose (UA) (Normal) mg/dL Urine Ketones (NEGATIVE) mg/dL Urine Blood (NEGATIVE) Urine Nitrate (NEGATIVE) Urine Bilirubin (NEGATIVE) Urine Urobilinogen (0.2-1.0) mg/dL Ur Leukocyte Esterase (Negative) [place]/uL Urine WBC (Auto) (0-5) /hpf 03/22/17 03/22/17 03/22/17 Range/Units 06:17 05:18 00:13 WBC (4.8-10.8) K/uL RBC (4.40-5.90) Mil/uL Hgb (12.0-18.0) g/dL Hct (35.0-51.0) % MCV (80.0-94.0) fL MCH (27.0-31.0) pg MCHC (33.0-37.0) g/dL RDW (11.5-14.5) % Plt Count (130-400) K/uL MPV (7.2-11.7) fL Neut % (Auto) (50.0-75.0) % Lymph % (Auto) (20.0-40.0) % Towns % (Auto) (0.0-10.0) % Eos % (Auto) (0.0-4.0) % Baso % (Auto) (0.0-2.0) % Neut # (1.8-7.0) K/uL Lymph # (1.0-4.3) K/uL [place] # (0.0-0.8) K/uL Eos # (0.0-0.7) K/uL Baso # (0.0-0.2) K/uL Neutrophils % (Manual) (50-75) % Lymphocytes % (Manual) (20-40) % Monocytes % (Manual) (0-10) % Eosinophils % (Manual) (0-4) % Toxic Granulation Platelet Estimate (NORMAL) Large Platelets Hypochromasia (manual) Poikilocytosis (manual Anisocytosis (manual) Spherocytes Tear Drop Cells Ovalocytes [place] Cells Schistocytes Sodium (132-148) mmol/L Potassium (3.6-5.2) mmol/L Chloride (98-107) mmol/L Carbon Dioxide (22-30) mmol/L Anion Gap (10-20) BUN (9-20) mg/dL Creatinine (0.8-1.5) MG/DL Est GFR ( Amer) Est GFR (Non-Af Amer) POC Glucose (mg/dL) 180 H 125 H (65-110) mg/dL Random Glucose (75-110) mg/dL Calcium (8.6-10.4) mg/dl Phosphorus (2.5-4.5) mg/dL Magnesium (1.6-2.3) mg/dL Total Bilirubin (0.2-1.3) mg/dL AST (17-59) U/L ALT (21-72) U/L Alkaline Phosphatase (38-126) U/L Total Protein (6.3-8.3) g/dL Albumin (3.5-5.0) g/dL Globulin (2.2-3.9) gm/dL Albumin/Globulin Ratio (1.0-2.1) Urine Color Yellow (YELLOW) Urine Clarity Clear (Clear) Urine pH 5.0 (5.0-8.0) Ur Specific [place] 1.009 (1.003-1.030) Urine Protein Negative (NEGATIVE) mg/dL Urine Glucose (UA) Normal (Normal) mg/dL Urine Ketones Negative (NEGATIVE) mg/dL Urine Blood Negative (NEGATIVE) Urine Nitrate Negative (NEGATIVE) Urine Bilirubin Negative (NEGATIVE) Urine Urobilinogen Normal (0.2-1.0) mg/dL Ur Leukocyte Esterase Neg (Negative) [place]/uL Urine WBC (Auto) < 1 (0-5) /hpf 03/21/17 Range/Units 17:20 WBC (4.8-10.8) K/uL RBC (4.40-5.90) Mil/uL Hgb (12.0-18.0) g/dL Hct (35.0-51.0) % MCV (80.0-94.0) fL MCH (27.0-31.0) pg MCHC (33.0-37.0) g/dL RDW (11.5-14.5) % Plt Count (130-400) K/uL MPV (7.2-11.7) fL Neut % (Auto) (50.0-75.0) % Lymph % (Auto) (20.0-40.0) % Towns % (Auto) (0.0-10.0) % Eos % (Auto) (0.0-4.0) % Baso % (Auto) (0.0-2.0) % Neut # (1.8-7.0) K/uL Lymph # (1.0-4.3) K/uL [place] # (0.0-0.8) K/uL Eos # (0.0-0.7) K/uL Baso # (0.0-0.2) K/uL Neutrophils % (Manual) (50-75) % Lymphocytes % (Manual) (20-40) % Monocytes % (Manual) (0-10) % Eosinophils % (Manual) (0-4) % Toxic Granulation Platelet Estimate (NORMAL) Large Platelets Hypochromasia (manual) Poikilocytosis (manual Anisocytosis (manual) Spherocytes Tear Drop Cells Ovalocytes [place] Cells Schistocytes Sodium (132-148) mmol/L Potassium (3.6-5.2) mmol/L Chloride (98-107) mmol/L Carbon Dioxide (22-30) mmol/L Anion Gap (10-20) BUN (9-20) mg/dL Creatinine (0.8-1.5) MG/DL Est GFR ( Amer) Est GFR (Non-Af Amer) POC Glucose (mg/dL) 133 H (65-110) mg/dL Random Glucose (75-110) mg/dL Calcium (8.6-10.4) mg/dl Phosphorus (2.5-4.5) mg/dL Magnesium (1.6-2.3) mg/dL Total Bilirubin (0.2-1.3) mg/dL AST (17-59) U/L ALT (21-72) U/L Alkaline Phosphatase (38-126) U/L Total Protein (6.3-8.3) g/dL Albumin (3.5-5.0) g/dL Globulin (2.2-3.9) gm/dL Albumin/Globulin Ratio (1.0-2.1) Urine Color (YELLOW) Urine Clarity (Clear) Urine pH (5.0-8.0) Ur Specific [place] (1.003-1.030) Urine Protein (NEGATIVE) mg/dL Urine Glucose (UA) (Normal) mg/dL Urine Ketones (NEGATIVE) mg/dL Urine Blood (NEGATIVE) Urine Nitrate (NEGATIVE) Urine Bilirubin (NEGATIVE) Urine Urobilinogen (0.2-1.0) mg/dL Ur Leukocyte Esterase (Negative) [place]/uL Urine WBC (Auto) (0-5) /hpf Laboratory Results - last 24 hr 03/21/17 03/22/17 03/22/17 17:20 00:13 05:18 WBC RBC Hgb Hct MCV MCH MCHC RDW Plt Count MPV Neut % (Auto) Lymph % (Auto) [place] % (Auto) Eos % (Auto) Baso % (Auto) Neut # Lymph # [place] # Eos # Baso # Neutrophils % (Manual) Lymphocytes % (Manual) Monocytes % (Manual) Eosinophils % (Manual) Toxic Granulation Platelet Estimate Large Platelets Hypochromasia (manual) Poikilocytosis (manual Anisocytosis (manual) Spherocytes Tear Drop Cells Ovalocytes [place] Cells Schistocytes Sodium Potassium Chloride Carbon Dioxide Anion Gap BUN Creatinine Est GFR ( Amer) Est GFR (Non-Af Amer) POC Glucose (mg/dL) 133 H 125 H 180 H Random Glucose Calcium Phosphorus Magnesium Total Bilirubin AST ALT Alkaline Phosphatase Total Protein Albumin Globulin Albumin/Globulin Ratio Urine Color Urine Clarity Urine pH Ur Specific [place] Urine Protein Urine Glucose (UA) Urine Ketones Urine Blood Urine Nitrate Urine Bilirubin Urine Urobilinogen Ur Leukocyte Esterase Urine WBC (Auto) 03/22/17 03/22/17 03/22/17 06:17 06:17 06:17 WBC 8.4 RBC 3.79 L Hgb 10.0 L Hct 32.1 L MCV 84.9 MCH 26.4 L MCHC 31.2 L RDW 17.8 H Plt Count 360 MPV 7.9 Neut % (Auto) 81.3 H Lymph % (Auto) 9.5 L [place] % (Auto) 6.4 Eos % (Auto) 2.5 Baso % (Auto) 0.3 Neut # 6.9 Lymph # 0.8 L [place] # 0.5 Eos # 0.2 Baso # 0.0 Neutrophils % (Manual) 83 H Lymphocytes % (Manual) 12 L Monocytes % (Manual) 4 Eosinophils % (Manual) 1 Toxic Granulation Present Platelet Estimate Normal Large Platelets Present Hypochromasia (manual) Slight Poikilocytosis (manual Slight Anisocytosis (manual) Slight Spherocytes Slight Tear Drop Cells Slight Ovalocytes Slight [place] Cells Slight Schistocytes Slight Sodium 141 Potassium 3.9 Chloride 104 Carbon Dioxide 26 Anion Gap 15 BUN 55 H Creatinine 1.4 Est GFR ( Amer) > 60 Est GFR (Non-Af Amer) 50 POC Glucose (mg/dL) Random Glucose 153 H Calcium 8.4 L Phosphorus 3.5 Magnesium 1.8 Total Bilirubin 1.2 AST 13 L D ALT 9 L D Alkaline Phosphatase 77 Total Protein 6.4 Albumin 2.8 L Globulin 3.6 Albumin/Globulin Ratio 0.8 L Urine Color Yellow Urine Clarity Clear Urine pH 5.0 Ur Specific [place] 1.009 Urine Protein Negative Urine Glucose (UA) Normal Urine Ketones Negative Urine Blood Negative Urine Nitrate Negative Urine Bilirubin Negative Urine Urobilinogen Normal Ur Leukocyte Esterase Neg Urine WBC (Auto) < 1 03/22/17 11:17 WBC RBC Hgb Hct MCV MCH MCHC RDW Plt Count MPV Neut % (Auto) Lymph % (Auto) [place] % (Auto) Eos % (Auto) Baso % (Auto) Neut # Lymph # [place] # Eos # Baso # Neutrophils % (Manual) Lymphocytes % (Manual) Monocytes % (Manual) Eosinophils % (Manual) Toxic Granulation Platelet Estimate Large Platelets Hypochromasia (manual) Poikilocytosis (manual Anisocytosis (manual) Spherocytes Tear Drop Cells Ovalocytes [place] Cells Schistocytes Sodium Potassium Chloride Carbon Dioxide Anion Gap BUN Creatinine Est GFR ( Amer) Est GFR (Non-Af Amer) POC Glucose (mg/dL) 170 H Random Glucose Calcium Phosphorus Magnesium Total Bilirubin AST ALT Alkaline Phosphatase Total Protein Albumin Globulin Albumin/Globulin Ratio Urine Color Urine Clarity Urine pH Ur Specific [place] Urine Protein Urine Glucose (UA) Urine Ketones Urine Blood Urine Nitrate Urine Bilirubin Urine Urobilinogen Ur Leukocyte Esterase Urine WBC (Auto) Fingerstick Blood Sugar Results: 170 Critical Care Progress Note - Nutrition Nutrition: Nutrition Category Date Time Status Heart Healthy Diet [DIET] Diets 03/21/17 Dinner Active Assessment/Plan (1) Acute exacerbation of CHF (congestive heart failure) Current Visit: Yes Status: Acute (2) A-fib Current Visit: No Status: Acute (3) GI bleed Current Visit: No Status: Acute
[2017-03-23] MEDS: Albuterol-Ipratrop 3 mg / 0.5 (3 ml) UD INH SCH ×4 (01:22→15:28)
[2017-03-23] MEDS: Imipenem/Cilastatin 250 MG in Sodium Chloride 100 ML IVPB SCH ×5 (05:00→23:16)
[2017-03-23 06:13] LABS: BASO % 0.2 % (0.0-2.0); EOS # 0.3 K/uL (0.0-0.7); EOS % 3.3 % (0.0-4.0); HEMOGLOBIN 9.5 g/dL (12.0-18.0); LYMPH # 0.9 K/uL (1.0-4.3); MEAN CELL VOLUME 85.1 fL (80.0-94.0); MEAN CORPUSCULAR HEMOGLOBIN 26.7 pg (27.0-31.0); MEAN CORPUSCULAR HGB CONC 31.4 g/dL (33.0-37.0); MEAN PLATELET VOLUME 7.6 fL (7.2-11.7); MONO # 0.6 K/uL (0.0-0.8); MONO % 6.8 % (0.0-10.0); NEUT % 79.7 % (50.0-75.0); RBC 3.54 Mil/uL (4.40-5.90); RED CELL DISTRIBUTION WIDTH 17.6 % (11.5-14.5); WHITE BLOOD COUNT 8.8 K/uL (4.8-10.8)
[2017-03-23 06:25] LABS: ALBUMIN 2.9 g/dL (3.5-5.0)
[2017-03-23 06:28] LABS: ALB/GLOB RATIO 0.7 (1.0-2.1); ALT/SGPT 10 U/L (21-72); AST/SGOT 14 U/L (17-59); BLOOD UREA NITROGEN 49 mg/dL (9-20); GFR AFRICAN-AMERICAN > 60; GFR NON-AFRICAN AMERICAN 50
[2017-03-23 06:29] LABS: CALCIUM 8.4 mg/dl (8.6-10.4); MAGNESIUM 1.8 mg/dL (1.6-2.3)
[2017-03-23] MEDS: (Novolog) Insulin Aspart, Recombinant 100 u/ml 10 ml vial SC SCH ×4 (07:29→21:50)
--- NOTE | 2017-03-23 07:51 | CP.CCUPN ---
CCU Subjective - Physician Review Events Since Last Encounter (Free Text): 03/23/17 07:51 71-year-old male with history of CAD, status post a CABG, atrial fibrillation, diabetes, peripheral vascular disease and hypertension, asthma. Patient hospitalized with the anemia, hypertension, ESBL Escherichia coli urinary tract infection. Patient admitted to the ICU because of the shortness of breath. Patient is off BiPAP, on oxygen. is complaining of exertional dyspnea. Generalized edema noted, leg swelling noted. Recent echo cardiology showing evidence of pulmonary hypertension, severe aortic stenosis, reduced ejection fraction to 30%. On examination: Patient is currently awake and responding. Tachycardia noted. Saturation is 100%. Chest bilateral rales noted. Regular heart sound. Nontender abdomen. Pedal edema noted Patient's labs reviewed Chest x-ray yesterday showing evidence of vascular congestion Assessment and recommendation: 71-year-old male with a history of CAD, CABG, atrial fibrillation, diabetes PVD hypertension. Urinary tract infection. Now possibly having fluid overload state in the lungs. We'll discontinue the IV fluid. Lasix. Broncho-dilators. Patient is on amiodarone. Continue the current treatment. We will follow the patient CCU Objective - Vital Signs / Intake & Output Vital Signs (Last 4 hours): Vital Signs Temp Pulse Resp BP Pulse Ox 03/23/17 07:00 114 H 16 03/23/17 06:26 117 H 14 120/66 03/23/17 06:16 103 H 9 L 03/23/17 05:24 102 H 12 115/74 100 03/23/17 05:00 101 H 13 100 03/23/17 04:24 93 H 9 L 125/60 100 03/23/17 04:00 97.6 F 94 H 10 L 100 Intake and Output (Last 8hrs): Intake & Output 03/22/17 03/23/17 03/23/17 22:59 06:59 14:59 Intake Total 940 1260 50 Output Total 314 464 0 Balance 626 796 50 Weight 176 lb 8 oz Intake: Intake, IV Amount 450 400 50 Right PICC 450 400 50 Oral 490 860 Output: Urine 314 464 0 Urine, Voided 314 464 0 Other: # Bowel Movements 0 - Physical Exam Head: Positive for: Atraumatic, Normocephalic Pupils: Positive for: PERRL Extroacular Muscles: Positive for: EOMI Conjunctiva: Positive for: Normal. Negative for: Injected, Icteric Mouth: Positive for: Moist Mucous Membranes Nose (External): Positive for: Other (NGT in place) Neck: Positive for: Normal Range of Motion Respiratory/Chest: Positive for: Wheezes, Rhonchi. Negative for: Respiratory Distress, Accessory Muscle Use, Rales Cardiovascular: Positive for: Murmurs (L sternal border), Normal S1, S2, Irregular Rhythm. Negative for: Regular Rate and Rhythm Abdomen: Positive for: Distention, Normal Bowel Sounds. Negative for: Tenderness Upper Extremity: Positive for: Normal Inspection, Other (R arm PICC line in place). Negative for: Edema Lower Extremity: Positive for: Edema (+3 to knees b/l). Negative for: Normal Inspection Neurological: Positive for: GCS=15, CN II-XII Intact, Speech Normal Skin: Positive for: Warm, Dry, Normal Color Psychiatric: Positive for: Alert, Oriented x 3, Normal Insight, Normal Concentration - Medications Active Medications: Active Medications Generic Name Dose Route Start Last Admin Trade Name Freq PRN Reason Stop Dose Admin Albuterol/Ipratropium 3 ml 03/23/17 14:00 Duoneb 3 Mg/0.5 Mg (3 Ml) Ud INH Q8 [facility] Amiodarone HCl 200 mg 03/19/17 10:00 03/22/17 10:16 Cordarone PO 200 mg DAILY [facility] Administration Cilostazol 100 mg 03/18/17 18:00 03/22/17 17:36 Pletal PO 100 mg BID [facility] Administration Collagenase 1 gm 03/21/17 10:00 03/22/17 10:24 Santyl TOP 1 applic DAILY [facility] Administration Ferrous Sulfate 325 mg 03/18/17 18:00 03/22/17 17:36 Feosol PO 325 mg BID [facility] Administration Gabapentin 100 mg 03/18/17 18:00 03/22/17 17:36 Neurontin PO 100 mg BID [facility] Administration Fluconazole 100 mls @ 100 mls/hr 03/22/17 10:00 03/22/17 10:15 Diflucan Iv 200 Mg/100 Ml Ns IVPB 04/04/17 10:59 100 mls/hr DAILY [facility] Administration Imipenem/Cilastatin Sodium 250 100 mls @ 100 mls/hr 03/22/17 12:00 03/23/17 05:00 mg/ Sodium Chloride IVPB 100 mls/hr Q6H [facility] Administration Insulin Aspart 0 unit 03/22/17 11:30 03/23/17 07:29 Novolog SC Not Given ACHS [facility] Protocol Insulin Glargine 10 unit 03/19/17 10:00 03/22/17 10:15 Lantus SC 10 u DAILY [facility] Administration Mupirocin 0 gm 03/18/17 18:00 03/22/17 17:37 Bactroban Ointment TOP 1 applic BID [facility] Administration Pantoprazole Sodium 40 mg 03/23/17 10:00 Protonix Ec Tab PO DAILY [facility] Fluticasone/Salmeterol 1 puff 03/18/17 16:45 03/22/17 10:27 Advair Diskus 100/50 IH 1 puff RQD [facility] Administration - Patient Studies Lab Studies: Microbiology Studies 03/20/17 04:52 Urine Culture - Final Urine,Clean Catch Escherichia Coli Lab Studies 03/23/17 03/23/17 03/23/17 Range/Units 07:22 06:08 06:08 WBC 8.8 (4.8-10.8) K/uL RBC 3.54 L (4.40-5.90) Mil/uL Hgb 9.5 L (12.0-18.0) g/dL Hct 30.2 L (35.0-51.0) % MCV 85.1 (80.0-94.0) fL MCH 26.7 L (27.0-31.0) pg MCHC 31.4 L (33.0-37.0) g/dL RDW 17.6 H (11.5-14.5) % Plt Count 347 (130-400) K/uL MPV 7.6 (7.2-11.7) fL Neut % (Auto) 79.7 H (50.0-75.0) % Lymph % (Auto) 10.0 L (20.0-40.0) % [place] % (Auto) 6.8 (0.0-10.0) % Eos % (Auto) 3.3 (0.0-4.0) % Baso % (Auto) 0.2 (0.0-2.0) % Neut # 7.0 (1.8-7.0) K/uL Lymph # 0.9 L (1.0-4.3) K/uL [place] # 0.6 (0.0-0.8) K/uL Eos # 0.3 (0.0-0.7) K/uL Baso # 0.0 (0.0-0.2) K/uL Neutrophils % (Manual) (50-75) % Lymphocytes % (Manual) (20-40) % Monocytes % (Manual) (0-10) % Eosinophils % (Manual) (0-4) % Toxic Granulation Platelet Estimate (NORMAL) Large Platelets Hypochromasia (manual) Poikilocytosis (manual Anisocytosis (manual) Spherocytes Tear Drop Cells Ovalocytes Mason Cells Schistocytes Sodium 143 (132-148) mmol/L Potassium 4.1 (3.6-5.2) mmol/L Chloride 107 (98-107) mmol/L Carbon Dioxide 26 (22-30) mmol/L Anion Gap 14 (10-20) BUN 49 H (9-20) mg/dL Creatinine 1.4 (0.8-1.5) MG/DL Est GFR ( Amer) > 60 Est GFR (Non-Af Amer) 50 POC Glucose (mg/dL) 116 H (65-110) mg/dL Random Glucose 121 H (75-110) mg/dL Calcium 8.4 L (8.6-10.4) mg/dl Phosphorus 3.0 (2.5-4.5) mg/dL Magnesium 1.8 (1.6-2.3) mg/dL Total Bilirubin 1.0 (0.2-1.3) mg/dL AST 14 L (17-59) U/L ALT 10 L (21-72) U/L Alkaline Phosphatase 80 (38-126) U/L Total Protein 6.8 (6.3-8.3) g/dL Albumin 2.9 L (3.5-5.0) g/dL Globulin 3.9 (2.2-3.9) gm/dL Albumin/Globulin Ratio 0.7 L (1.0-2.1) 03/22/17 03/22/17 03/22/17 Range/Units 21:29 16:30 11:17 WBC (4.8-10.8) K/uL RBC (4.40-5.90) Mil/uL Hgb (12.0-18.0) g/dL Hct (35.0-51.0) % MCV (80.0-94.0) fL MCH (27.0-31.0) pg MCHC (33.0-37.0) g/dL RDW (11.5-14.5) % Plt Count (130-400) K/uL MPV (7.2-11.7) fL Neut % (Auto) (50.0-75.0) % Lymph % (Auto) (20.0-40.0) % [place] % (Auto) (0.0-10.0) % Eos % (Auto) (0.0-4.0) % Baso % (Auto) (0.0-2.0) % Neut # (1.8-7.0) K/uL Lymph # (1.0-4.3) K/uL [place] # (0.0-0.8) K/uL Eos # (0.0-0.7) K/uL Baso # (0.0-0.2) K/uL Neutrophils % (Manual) (50-75) % Lymphocytes % (Manual) (20-40) % Monocytes % (Manual) (0-10) % Eosinophils % (Manual) (0-4) % Toxic Granulation Platelet Estimate (NORMAL) Large Platelets Hypochromasia (manual) Poikilocytosis (manual Anisocytosis (manual) Spherocytes Tear Drop Cells Ovalocytes Mason Cells Schistocytes Sodium (132-148) mmol/L Potassium (3.6-5.2) mmol/L Chloride (98-107) mmol/L Carbon Dioxide (22-30) mmol/L Anion Gap (10-20) BUN (9-20) mg/dL Creatinine (0.8-1.5) MG/DL Est GFR ( Amer) Est GFR (Non-Af Amer) POC Glucose (mg/dL) 174 H 184 H 170 H (65-110) mg/dL Random Glucose (75-110) mg/dL Calcium (8.6-10.4) mg/dl Phosphorus (2.5-4.5) mg/dL Magnesium (1.6-2.3) mg/dL Total Bilirubin (0.2-1.3) mg/dL AST (17-59) U/L ALT (21-72) U/L Alkaline Phosphatase (38-126) U/L Total Protein (6.3-8.3) g/dL Albumin (3.5-5.0) g/dL Globulin (2.2-3.9) gm/dL Albumin/Globulin Ratio (1.0-2.1) /24/ Range/Units 06:17 WBC (4.8-10.8) K/uL RBC (4.40-5.90) Mil/uL Hgb (12.0-18.0) g/dL Hct (35.0-51.0) % MCV (80.0-94.0) fL MCH (27.0-31.0) pg MCHC (33.0-37.0) g/dL RDW (11.5-14.5) % Plt Count (130-400) K/uL MPV (7.2-11.7) fL Neut % (Auto) (50.0-75.0) % Lymph % (Auto) (20.0-40.0) % [place] % (Auto) (0.0-10.0) % Eos % (Auto) (0.0-4.0) % Baso % (Auto) (0.0-2.0) % Neut # (1.8-7.0) K/uL Lymph # (1.0-4.3) K/uL [place] # (0.0-0.8) K/uL Eos # (0.0-0.7) K/uL Baso # (0.0-0.2) K/uL Neutrophils % (Manual) 83 H (50-75) % Lymphocytes % (Manual) 12 L (20-40) % Monocytes % (Manual) 4 (0-10) % Eosinophils % (Manual) 1 (0-4) % Toxic Granulation Present Platelet Estimate Normal (NORMAL) Large Platelets Present Hypochromasia (manual) Slight Poikilocytosis (manual Slight Anisocytosis (manual) Slight Spherocytes Slight Tear Drop Cells Slight Ovalocytes Slight Mason Cells Slight Schistocytes Slight Sodium (132-148) mmol/L Potassium (3.6-5.2) mmol/L Chloride (98-107) mmol/L Carbon Dioxide (22-30) mmol/L Anion Gap (10-20) BUN (9-20) mg/dL Creatinine (0.8-1.5) MG/DL Est GFR ( Amer) Est GFR (Non-Af Amer) POC Glucose (mg/dL) (65-110) mg/dL Random Glucose (75-110) mg/dL Calcium (8.6-10.4) mg/dl Phosphorus (2.5-4.5) mg/dL Magnesium (1.6-2.3) mg/dL Total Bilirubin (0.2-1.3) mg/dL AST (17-59) U/L ALT (21-72) U/L Alkaline Phosphatase (38-126) U/L Total Protein (6.3-8.3) g/dL Albumin (3.5-5.0) g/dL Globulin (2.2-3.9) gm/dL Albumin/Globulin Ratio (1.0-2.1) Laboratory Results - last 24 hr 03/22/17 03/22/17 03/22/17 06:17 11:17 16:30 WBC RBC Hgb Hct MCV MCH MCHC RDW Plt Count MPV Neut % (Auto) Lymph % (Auto) [place] % (Auto) Eos % (Auto) Baso % (Auto) Neut # Lymph # [place] # Eos # Baso # Neutrophils % (Manual) 83 H Lymphocytes % (Manual) 12 L Monocytes % (Manual) 4 Eosinophils % (Manual) 1 Toxic Granulation Present Platelet Estimate Normal Large Platelets Present Hypochromasia (manual) Slight Poikilocytosis (manual Slight Anisocytosis (manual) Slight Spherocytes Slight Tear Drop Cells Slight Ovalocytes Slight [place] Cells Slight Schistocytes Slight Sodium Potassium Chloride Carbon Dioxide Anion Gap BUN Creatinine Est GFR ( Amer) Est GFR (Non-Af Amer) POC Glucose (mg/dL) 170 H 184 H Random Glucose Calcium Phosphorus Magnesium Total Bilirubin AST ALT Alkaline Phosphatase Total Protein Albumin Globulin Albumin/Globulin Ratio 03/22/17 03/23/17 03/23/17 21:29 06:08 06:08 WBC 8.8 RBC 3.54 L Hgb 9.5 L Hct 30.2 L MCV 85.1 MCH 26.7 L MCHC 31.4 L RDW 17.6 H Plt Count 347 MPV 7.6 Neut % (Auto) 79.7 H Lymph % (Auto) 10.0 L [place] % (Auto) 6.8 Eos % (Auto) 3.3 Baso % (Auto) 0.2 Neut # 7.0 Lymph # 0.9 L [place] # 0.6 Eos # 0.3 Baso # 0.0 Neutrophils % (Manual) Lymphocytes % (Manual) Monocytes % (Manual) Eosinophils % (Manual) Toxic Granulation Platelet Estimate Large Platelets Hypochromasia (manual) Poikilocytosis (manual Anisocytosis (manual) Spherocytes Tear Drop Cells Ovalocytes Mason Cells Schistocytes Sodium 143 Potassium 4.1 Chloride 107 Carbon Dioxide 26 Anion Gap 14 BUN 49 H Creatinine 1.4 Est GFR ( Amer) > 60 Est GFR (Non-Af Amer) 50 POC Glucose (mg/dL) 174 H Random Glucose 121 H Calcium 8.4 L Phosphorus 3.0 Magnesium 1.8 Total Bilirubin 1.0 AST 14 L ALT 10 L Alkaline Phosphatase 80 Total Protein 6.8 Albumin 2.9 L Globulin 3.9 Albumin/Globulin Ratio 0.7 L 03/23/17 07:22 WBC RBC Hgb Hct MCV MCH MCHC RDW Plt Count MPV Neut % (Auto) Lymph % (Auto) [place] % (Auto) Eos % (Auto) Baso % (Auto) Neut # Lymph # [place] # Eos # Baso # Neutrophils % (Manual) Lymphocytes % (Manual) Monocytes % (Manual) Eosinophils % (Manual) Toxic Granulation Platelet Estimate Large Platelets Hypochromasia (manual) Poikilocytosis (manual Anisocytosis (manual) Spherocytes Tear Drop Cells Ovalocytes Mason Cells Schistocytes Sodium Potassium Chloride Carbon Dioxide Anion Gap BUN Creatinine Est GFR ( Amer) Est GFR (Non-Af Amer) POC Glucose (mg/dL) 116 H Random Glucose Calcium Phosphorus Magnesium Total Bilirubin AST ALT Alkaline Phosphatase Total Protein Albumin Globulin Albumin/Globulin Ratio Fingerstick Blood Sugar Results: 170 Critical Care Progress Note - Nutrition Nutrition: Nutrition Category Date Time Status Heart Healthy Diet [DIET] Diets 03/21/17 Dinner Active
[2017-03-23] MEDS: (Lantus) Insulin Glargine, Recombinant SC SCH (09:04)
[2017-03-23] MEDS: Collagenase 250 Units/gm Ointment(30 gm) TOP SCH (09:05)
[2017-03-23] MEDS: Pantoprazole 40 mg EC Tab PO SCH (09:05)
[2017-03-23] MEDS: Cilostazol 100 mg Tab UD PO SCH ×2 (09:05→17:35)
[2017-03-23] MEDS: Fluconazole IV 200mg/100 ml NS 100 ML IVPB SCH (09:12)
--- NOTE | 2017-03-23 09:52 | CP.PCM.PN ---
Subjective - Date & Time of Evaluation Date of Evaluation: 03/23/17 Time of Evaluation: 09:51 - Subjective Subjective: Covering Dr Ag CC: Anemia No further bleeding. Good appetitie Feels weak Objective - Vital Signs/Intake and Output Vital Signs (last 24 hours): Temp Pulse Resp BP Pulse Ox 98.1 F 114 H 15 108/77 100 03/23/17 08:00 03/23/17 09:24 03/23/17 09:24 03/23/17 09:24 03/23/17 09:24 Intake and Output: 03/23/17 03/23/17 06:59 18:59 Intake Total 1700 400 Output Total 638 240 Balance 1062 160 - Medications Medications: Current Medications Albuterol/Ipratropium (Duoneb 3 Mg/0.5 Mg (3 Ml) Ud) 3 ml INH Q8 [facility] Amiodarone HCl (Cordarone) 200 mg PO DAILY [facility] Last Admin: 03/23/17 09:03 Dose: 200 mg Cilostazol (Pletal) 100 mg PO BID [facility] Last Admin: 03/23/17 09:05 Dose: 100 mg Collagenase (Santyl) 1 gm TOP DAILY [facility] Last Admin: 03/23/17 09:05 Dose: 1 applic Ferrous Sulfate (Feosol) 325 mg PO BID [facility] Last Admin: 03/23/17 09:03 Dose: 325 mg Gabapentin (Neurontin) 100 mg PO BID [facility] Last Admin: 03/23/17 09:04 Dose: 100 mg Fluconazole (Diflucan Iv 200 Mg/100 Ml Ns) 100 mls @ 100 mls/hr IVPB DAILY [facility] Stop: 04/04/17 10:59 Last Admin: 03/23/17 09:12 Dose: 100 mls/hr Imipenem/Cilastatin Sodium 250 (mg/ Sodium Chloride) 100 mls @ 100 mls/hr IVPB Q6H [facility] Last Admin: 03/23/17 05:00 Dose: 100 mls/hr Insulin Aspart (Novolog) 0 unit SC ACHS [facility] PRN Reason: Protocol Last Admin: 03/23/17 07:29 Dose: Not Given Insulin Glargine (Lantus) 10 unit SC DAILY [facility] Last Admin: 03/23/17 09:04 Dose: 10 u Mupirocin (Bactroban Ointment) 0 gm TOP BID [facility] Last Admin: 03/23/17 09:03 Dose: 1 applic Pantoprazole Sodium (Protonix Ec Tab) 40 mg PO DAILY [facility] Last Admin: 03/23/17 09:05 Dose: 40 mg Fluticasone/Salmeterol (Advair Diskus 100/50) 1 puff IH RQD [facility] Last Admin: 03/22/17 10:27 Dose: 1 puff - Labs Labs: 03/23/17 06:08 03/23/17 06:08 PT 24.6 SECONDS (9.7-12.2) H 03/18/17 17:38 INR 2.1 03/18/17 17:38 APTT 33 SECONDS (21-34) 03/18/17 17:38 - Constitutional Appears: Chronically Ill - Head Exam Head Exam: NORMOCEPHALIC - Eye Exam Eye Exam: absent: Scleral icterus - Respiratory Exam Respiratory Exam: NORMAL BREATHING PATTERN - Cardiovascular Exam Cardiovascular Exam: Tachycardia, Murmur - GI/Abdominal Exam GI & Abdominal Exam: Soft. absent: Tenderness, Mass Assessment and Plan (1) Acute exacerbation of CHF (congestive heart failure) Assessment & Plan: Stable Monitor Status: Acute (2) Anemia Assessment & Plan: Stable Monitor Status: Chronic
--- NOTE | 2017-03-23 12:27 | CP.PCM.PN ---
Subjective - Date & Time of Evaluation Date of Evaluation: 03/22/17 Time of Evaluation: 14:00 - Subjective Subjective: patient is s/p endoscopy. found to have gastritis. Objective - Vital Signs/Intake and Output Vital Signs (last 24 hours): Temp Pulse Resp BP Pulse Ox 98.1 F 108 H 16 101/65 100 03/23/17 08:00 03/23/17 11:00 03/23/17 11:00 03/23/17 10:24 03/23/17 11:00 Intake and Output: 03/23/17 03/23/17 06:59 18:59 Intake Total 1700 500 Output Total 638 240 Balance 1062 260 - Medications Medications: Current Medications Albuterol/Ipratropium (Duoneb 3 Mg/0.5 Mg (3 Ml) Ud) 3 ml INH Q8 [facility] Amiodarone HCl (Cordarone) 200 mg PO DAILY [facility] Last Admin: 03/23/17 09:03 Dose: 200 mg Cilostazol (Pletal) 100 mg PO BID [facility] Last Admin: 03/23/17 09:05 Dose: 100 mg Collagenase (Santyl) 1 gm TOP DAILY [facility] Last Admin: 03/23/17 09:05 Dose: 1 applic Ferrous Sulfate (Feosol) 325 mg PO BID [facility] Last Admin: 03/23/17 09:03 Dose: 325 mg Gabapentin (Neurontin) 100 mg PO BID [facility] Last Admin: 03/23/17 09:04 Dose: 100 mg Fluconazole (Diflucan Iv 200 Mg/100 Ml Ns) 100 mls @ 100 mls/hr IVPB DAILY [facility] Stop: 04/04/17 10:59 Last Admin: 03/23/17 09:12 Dose: 100 mls/hr Imipenem/Cilastatin Sodium 250 (mg/ Sodium Chloride) 100 mls @ 100 mls/hr IVPB Q6H [facility] Last Admin: 03/23/17 11:04 Dose: 100 mls/hr Insulin Aspart (Novolog) 0 unit SC ACHS [facility] PRN Reason: Protocol Last Admin: 03/23/17 11:36 Dose: 2 unit Insulin Glargine (Lantus) 10 unit SC DAILY [facility] Last Admin: 03/23/17 09:04 Dose: 10 u Mupirocin (Bactroban Ointment) 0 gm TOP BID [facility] Last Admin: 03/23/17 09:03 Dose: 1 applic Pantoprazole Sodium (Protonix Ec Tab) 40 mg PO DAILY [facility] Last Admin: 03/23/17 09:05 Dose: 40 mg Fluticasone/Salmeterol (Advair Diskus 100/50) 1 puff IH RQD [facility] Last Admin: 03/22/17 10:27 Dose: 1 puff - Labs Labs: 03/23/17 06:08 03/23/17 06:08 PT 24.6 SECONDS (9.7-12.2) H 03/18/17 17:38 INR 2.1 03/18/17 17:38 APTT 33 SECONDS (21-34) 03/18/17 17:38 - Constitutional Appears: Non-toxic - Head Exam Head Exam: NORMAL INSPECTION - Eye Exam Eye Exam: Normal appearance - ENT Exam ENT Exam: Mucous Membranes Dry - Neck Exam Neck Exam: Normal Inspection - Respiratory Exam Respiratory Exam: Decreased Breath Sounds - Cardiovascular Exam Cardiovascular Exam: Irregular Rhythm - GI/Abdominal Exam GI & Abdominal Exam: Normal Bowel Sounds - Rectal Exam Rectal Exam: Deferred - Extremities Exam Extremities Exam: Pedal Edema - Back Exam Back Exam: NORMAL INSPECTION - Neurological Exam Neurological Exam: Alert - Psychiatric Exam Psychiatric exam: Normal Affect - Skin Skin Exam: Normal Color Assessment and Plan (1) Acute exacerbation of CHF (congestive heart failure) Assessment & Plan: acute on chronic systolic dysfunction. recommend diuresis as needed Status: Acute (2) Anemia Assessment & Plan: transfuse to keep Hgb >9 Status: Acute (3) A-fib Assessment & Plan: medical therapy and rate control. anticoagulation will be difficult due to anemia Status: Acute (4) Aortic stenosis Assessment & Plan: not candidate for valve replacement Status: Acute
--- NOTE | 2017-03-23 16:18 | CP.PCM.PN ---
Subjective - Date & Time of Evaluation Date of Evaluation: 03/23/17 Time of Evaluation: 14:00 - Subjective Subjective: Patient was seen and examined by me. This is my first time meeting patient, I reviewed previous notes, discussed with care team, spoke with the patient and family He reports breathing is somewhat better than when he came in. He has multiple medical problems contributing to the shortness of breath. He was very anemic when he came require 3 units of PRBCs. He just also completed EGD as well. There is a history of atrial fibrillation with aortic stenosis as well as CHF. His other medical history includes CAD, DM, Hyperlipdemia, PVD, HTN, and also PHTN He is also getting abx for an ESBL + Ecoli Objective - Vital Signs/Intake and Output Vital Signs (last 24 hours): Temp Pulse Resp BP Pulse Ox 98.3 F 103 H 12 86/56 L 100 03/23/17 12:00 03/23/17 15:24 03/23/17 15:24 03/23/17 15:24 03/23/17 15:24 Intake and Output: 03/23/17 03/23/17 06:59 18:59 Intake Total 1700 800 Output Total 638 820 Balance 1062 -20 - Medications Medications: Current Medications Albuterol/Ipratropium (Duoneb 3 Mg/0.5 Mg (3 Ml) Ud) 3 ml INH Q8 [facility] Last Admin: 03/23/17 15:28 Dose: 3 ml Amiodarone HCl (Cordarone) 200 mg PO DAILY [facility] Last Admin: 03/23/17 09:03 Dose: 200 mg Cilostazol (Pletal) 100 mg PO BID [facility] Last Admin: 03/23/17 09:05 Dose: 100 mg Collagenase (Santyl) 1 gm TOP DAILY [facility] Last Admin: 03/23/17 09:05 Dose: 1 applic Ferrous Sulfate (Feosol) 325 mg PO BID [facility] Last Admin: 03/23/17 09:03 Dose: 325 mg Gabapentin (Neurontin) 100 mg PO BID [facility] Last Admin: 03/23/17 09:04 Dose: 100 mg Fluconazole (Diflucan Iv 200 Mg/100 Ml Ns) 100 mls @ 100 mls/hr IVPB DAILY [facility] Stop: 04/04/17 10:59 Last Admin: 03/23/17 09:12 Dose: 100 mls/hr Imipenem/Cilastatin Sodium 250 (mg/ Sodium Chloride) 100 mls @ 100 mls/hr IVPB Q6H [facility] Last Admin: 03/23/17 11:04 Dose: 100 mls/hr Insulin Aspart (Novolog) 0 unit SC ACHS [facility] PRN Reason: Protocol Last Admin: 03/23/17 11:36 Dose: 2 unit Insulin Glargine (Lantus) 10 unit SC DAILY [facility] Last Admin: 03/23/17 09:04 Dose: 10 u Mupirocin (Bactroban Ointment) 0 gm TOP BID [facility] Last Admin: 03/23/17 09:03 Dose: 1 applic Pantoprazole Sodium (Protonix Ec Tab) 40 mg PO DAILY [facility] Last Admin: 03/23/17 09:05 Dose: 40 mg Fluticasone/Salmeterol (Advair Diskus 100/50) 1 puff IH RQD [facility] Last Admin: 03/22/17 10:27 Dose: 1 puff - Labs Labs: 03/23/17 06:08 03/23/17 06:08 PT 24.6 SECONDS (9.7-12.2) H 03/18/17 17:38 INR 2.1 03/18/17 17:38 APTT 33 SECONDS (21-34) 03/18/17 17:38 - Constitutional Appears: No Acute Distress, Chronically Ill - Head Exam Head Exam: NORMAL INSPECTION - Eye Exam Eye Exam: EOMI, Normal appearance - ENT Exam ENT Exam: Mucous Membranes Moist - Respiratory Exam Respiratory Exam: Decreased Breath Sounds, Rales, Rhonchi - Cardiovascular Exam Cardiovascular Exam: Tachycardia, Irregular Rhythm, Murmur - GI/Abdominal Exam GI & Abdominal Exam: Soft, Normal Bowel Sounds. absent: Guarding, Rigid, Tenderness - Neurological Exam Neurological Exam: Alert, Awake, Oriented x3 - Psychiatric Exam Psychiatric exam: Depressed, Flat Affect - Skin Skin Exam: Normal Color, Warm Assessment and Plan - Assessment and Plan (Free Text) Assessment: Assessment and Plan (1) Anemia 03/23: Currently Hgb is 9.6, Status post 3 units of PRBC. No active GI bleed noted on EGD. Previously was on anticoagulation and now off. Hiatal hernia and gastritis on EGD, per GI not a candidate for colonscopy at this time (2) Acute exacerbation of CHF (congestive heart failure) 03/23: Echo completed, also showing severe aortic stenosis. He is being diuresed as needed at this time however the blood pressure is low. The chest X ray from yesterday suggest congestion, and probable small pleural effusion. (3) A-fib 03/23: Previously on xarelto, now on hold because of for anemia and possible bleed On amiodarone for rate control (4) LETICIA (acute kidney injury) 03/23: Creatine decreased to 1,4. Possibly secondary to diuresis. Improving. Nephrology on board. Diuretics on hold because of hypotension (5) HTN (hypertension) Patient has hypotension now. As to the medications are on hold. (6) Hx of CABG Continue medical management as per cardiology. (7) Diabetes mellitus with hyperglycemia Patient is on Lantus. Blood sugar is controlled. (8) Hyperlipidemia Continue statin. (9) Peripheral vascular disease Patient is on Pletal. (10) Esophageal candidiasis On Diflucan (11) UTI due to extended-spectrum beta lactamase (ESBL) producing Escherichia coli Patient started on imipenem.
[2017-03-24] MEDS: Albuterol-Ipratrop 3 mg / 0.5 (3 ml) UD INH SCH ×3 (00:08→16:33)
[2017-03-24] MEDS: Imipenem/Cilastatin 250 MG in Sodium Chloride 100 ML IVPB SCH ×4 (05:07→23:53)
--- NOTE | 2017-03-24 05:22 | CP.PCM.PN ---
Subjective - Date & Time of Evaluation Date of Evaluation: 03/23/17 Time of Evaluation: 12:00 - Subjective Subjective: patient is lying in bed. is at the bedside. appears comfortable. Objective - Vital Signs/Intake and Output Vital Signs (last 24 hours): Temp Pulse Resp BP Pulse Ox 98.6 F 110 H 14 100/63 100 03/24/17 04:00 03/24/17 04:00 03/24/17 04:00 03/24/17 03:24 03/24/17 04:00 Intake and Output: 03/23/17 03/24/17 18:59 06:59 Intake Total 1150 640 Output Total 820 750 Balance 330 -110 - Medications Medications: Current Medications Albuterol/Ipratropium (Duoneb 3 Mg/0.5 Mg (3 Ml) Ud) 3 ml INH RQ8 [facility] Last Admin: 03/24/17 00:08 Dose: 3 ml Amiodarone HCl (Cordarone) 200 mg PO DAILY [facility] Last Admin: 03/23/17 09:03 Dose: 200 mg Cilostazol (Pletal) 100 mg PO BID [facility] Last Admin: 03/23/17 17:35 Dose: 100 mg Collagenase (Santyl) 1 gm TOP DAILY [facility] Last Admin: 03/23/17 09:05 Dose: 1 applic Ferrous Sulfate (Feosol) 325 mg PO BID [facility] Last Admin: 03/23/17 17:35 Dose: 325 mg Gabapentin (Neurontin) 100 mg PO BID [facility] Last Admin: 03/23/17 17:35 Dose: 100 mg Fluconazole (Diflucan Iv 200 Mg/100 Ml Ns) 100 mls @ 100 mls/hr IVPB DAILY [facility] Stop: 04/04/17 10:59 Last Admin: 03/23/17 09:12 Dose: 100 mls/hr Imipenem/Cilastatin Sodium 250 (mg/ Sodium Chloride) 100 mls @ 100 mls/hr IVPB Q6H [facility] Last Admin: 03/24/17 05:07 Dose: 100 mls/hr Insulin Aspart (Novolog) 0 unit SC ACHS [facility] PRN Reason: Protocol Last Admin: 03/23/17 21:50 Dose: Not Given Insulin Glargine (Lantus) 10 unit SC DAILY [facility] Last Admin: 03/23/17 09:04 Dose: 10 u Mupirocin (Bactroban Ointment) 0 gm TOP BID [facility] Last Admin: 03/23/17 17:34 Dose: 1 applic Pantoprazole Sodium (Protonix Ec Tab) 40 mg PO DAILY [facility] Last Admin: 03/23/17 09:05 Dose: 40 mg Fluticasone/Salmeterol (Advair Diskus 100/50) 1 puff IH RQD [facility] Last Admin: 03/22/17 10:27 Dose: 1 puff - Labs Labs: 03/23/17 06:08 03/23/17 06:08 PT 24.6 SECONDS (9.7-12.2) H 03/18/17 17:38 INR 2.1 03/18/17 17:38 APTT 33 SECONDS (21-34) 03/18/17 17:38 - Constitutional Appears: Cachectic, Chronically Ill - Head Exam Head Exam: NORMAL INSPECTION - Eye Exam Eye Exam: Normal appearance - ENT Exam ENT Exam: Mucous Membranes Moist - Neck Exam Neck Exam: Full ROM - Respiratory Exam Respiratory Exam: Decreased Breath Sounds - Cardiovascular Exam Cardiovascular Exam: Irregular Rhythm, Murmur - GI/Abdominal Exam GI & Abdominal Exam: Normal Bowel Sounds - Rectal Exam Rectal Exam: Deferred - Extremities Exam Extremities Exam: Pedal Edema - Back Exam Back Exam: NORMAL INSPECTION - Neurological Exam Neurological Exam: Alert - Psychiatric Exam Psychiatric exam: Normal Affect - Skin Skin Exam: Normal Color Assessment and Plan (1) Acute exacerbation of CHF (congestive heart failure) Assessment & Plan: improving volume status Status: Acute (2) Anemia Assessment & Plan: stable Status: Acute (3) A-fib Assessment & Plan: not on anticoagulation due to bleeding Status: Acute (4) Aortic stenosis Assessment & Plan: will treat conservatively Status: Acute
[2017-03-24 06:19] LABS: BASO % 0.3 % (0.0-2.0); EOS # 0.4 K/uL (0.0-0.7); EOS % 3.9 % (0.0-4.0); HEMOGLOBIN 8.6 g/dL (12.0-18.0); LYMPH # 0.8 K/uL (1.0-4.3); LYMPH % 8.7 % (20.0-40.0); MEAN CELL VOLUME 85.1 fL (80.0-94.0); MEAN CORPUSCULAR HEMOGLOBIN 27.8 pg (27.0-31.0); MEAN CORPUSCULAR HGB CONC 32.6 g/dL (33.0-37.0); MONO # 0.6 K/uL (0.0-0.8); MONO % 7.2 % (0.0-10.0); NEUT # 7.2 K/uL (1.8-7.0); NEUT % 79.9 % (50.0-75.0); PLATELET COUNT 280 K/uL (130-400); RED CELL DISTRIBUTION WIDTH 17.6 % (11.5-14.5)
[2017-03-24 06:27] LABS: ALBUMIN 2.8 g/dL (3.5-5.0)
[2017-03-24 06:30] LABS: ALB/GLOB RATIO 0.7 (1.0-2.1); AST/SGOT 11 U/L (17-59); BLOOD UREA NITROGEN 44 mg/dL (9-20); GFR AFRICAN-AMERICAN > 60; GFR NON-AFRICAN AMERICAN 54
[2017-03-24 06:31] LABS: ALT/SGPT 18 U/L (21-72); CALCIUM 8.2 mg/dl (8.6-10.4); MAGNESIUM 1.7 mg/dL (1.6-2.3)
[2017-03-24 07:25] LABS: EOSINOPHIL 2 % (0-4); LYMPHOCYTE 15 % (20-40); MONOCYTE 8 % (0-10); NEUTROPHIL 75 % (50-75); PLATELET ESTIMATE NORMAL (NORMAL); TOTAL CELLS COUNTED 100
--- NOTE | 2017-03-24 07:25 | CP.CCUPN ---
CCU Subjective - Physician Review Subjective (Free Text): 03/24/17 07:55 Patient seen and examined at bedside. Nursing reported no acute events overnight. Patient continues to complain of a wet cough but reports he is unable to bring up any sputum. Patient also complains of exertional dyspnea and pain in his legs b/l and reports it is difficult for him to move them. He denied fever, chills, headache, dizziness, chest pain, palpitations, abd pain, nausea, vomiting, bowel/bladder complaints. CCU Objective - Vital Signs / Intake & Output Vital Signs (Last 4 hours): Vital Signs Temp Pulse Resp BP Pulse Ox 03/24/17 07:00 113 H 14 94 L 03/24/17 06:24 104 H 13 100/60 100 03/24/17 06:00 105 H 12 100 03/24/17 05:24 107 H 15 110/65 100 03/24/17 05:23 109 H 16 92 L 03/24/17 05:00 107 H 14 100 03/24/17 04:25 109 H 16 106/57 L 98 03/24/17 04:00 98.6 F 110 H 14 100 Intake and Output (Last 8hrs): Intake & Output 03/23/17 03/24/17 03/24/17 22:59 06:59 14:59 Intake Total 450 640 Output Total 500 250 300 Balance -50 390 -300 Weight 177 lb Intake: Intake, IV Amount 100 200 Right PICC #2 100 200 Oral 350 440 Output: Urine 500 250 300 Urine, Voided 500 250 300 Other: # Bowel Movements 0 - Physical Exam Head: Positive for: Atraumatic, Normocephalic Pupils: Positive for: PERRL Extroacular Muscles: Positive for: EOMI Conjunctiva: Positive for: Normal. Negative for: Injected, Icteric Mouth: Positive for: Moist Mucous Membranes Nose (External): Positive for: Other (NGT in place) Neck: Positive for: Normal Range of Motion Respiratory/Chest: Positive for: Rales (b/l), Rhonchi. Negative for: Clear to Auscultation, Respiratory Distress, Accessory Muscle Use Cardiovascular: Positive for: Murmurs (L sternal border), Normal S1, S2, Irregular Rhythm, Tachycardic. Negative for: Regular Rate and Rhythm Abdomen: Positive for: Normal Bowel Sounds. Negative for: Tenderness, Distention Upper Extremity: Positive for: Normal Inspection, Other (R arm PICC line in place). Negative for: Edema Lower Extremity: Positive for: Edema (+2 to knees b/l), Other (b/l foot dressings c/d/i). Negative for: Normal Inspection Neurological: Positive for: GCS=15, CN II-XII Intact, Speech Normal Skin: Positive for: Warm, Dry, Normal Color Psychiatric: Positive for: Alert, Oriented x 3, Normal Insight, Normal Concentration - Medications Active Medications: Active Medications Generic Name Dose Route Start Last Admin Trade Name Freq PRN Reason Stop Dose Admin Albuterol/Ipratropium 3 ml 03/24/17 00:00 03/24/17 00:08 Duoneb 3 Mg/0.5 Mg (3 Ml) Ud INH 3 ml RQ8 [facility] Administration Amiodarone HCl 200 mg 03/19/17 10:00 03/23/17 09:03 Cordarone PO 200 mg DAILY [facility] Administration Cilostazol 100 mg 03/18/17 18:00 03/23/17 17:35 Pletal PO 100 mg BID [facility] Administration Collagenase 1 gm 03/21/17 10:00 03/23/17 09:05 Santyl TOP 1 applic DAILY [facility] Administration Ferrous Sulfate 325 mg 03/18/17 18:00 03/23/17 17:35 Feosol PO 325 mg BID [facility] Administration Gabapentin 100 mg 03/18/17 18:00 03/23/17 17:35 Neurontin PO 100 mg BID [facility] Administration Fluconazole 100 mls @ 100 mls/hr 03/22/17 10:00 03/23/17 09:12 Diflucan Iv 200 Mg/100 Ml Ns IVPB 04/04/17 10:59 100 mls/hr DAILY [facility] Administration Imipenem/Cilastatin Sodium 250 100 mls @ 100 mls/hr 03/22/17 12:00 03/24/17 05:07 mg/ Sodium Chloride IVPB 100 mls/hr Q6H [facility] Administration Insulin Aspart 0 unit 03/22/17 11:30 03/23/17 21:50 Novolog SC Not Given ACHS [facility] Protocol Insulin Glargine 10 unit 03/19/17 10:00 03/23/17 09:04 Lantus SC 10 u DAILY [facility] Administration Mupirocin 0 gm 03/18/17 18:00 03/23/17 17:34 Bactroban Ointment TOP 1 applic BID [facility] Administration Pantoprazole Sodium 40 mg 03/23/17 10:00 03/23/17 09:05 Protonix Ec Tab PO 40 mg DAILY [facility] Administration Fluticasone/Salmeterol 1 puff 03/18/17 16:45 03/22/17 10:27 Advair Diskus 100/50 IH 1 puff RQD [facility] Administration - Patient Studies Lab Studies: Lab Studies 03/24/17 03/24/17 03/23/17 Range/Units 06:09 06:09 21:44 WBC 9.0 (4.8-10.8) K/uL RBC 3.10 L (4.40-5.90) Mil/uL Hgb 8.6 L (12.0-18.0) g/dL Hct 26.3 L (35.0-51.0) % MCV 85.1 (80.0-94.0) fL MCH 27.8 (27.0-31.0) pg MCHC 32.6 L (33.0-37.0) g/dL RDW 17.6 H (11.5-14.5) % Plt Count 280 (130-400) K/uL MPV 8.0 (7.2-11.7) fL Neut % (Auto) 79.9 H (50.0-75.0) % Lymph % (Auto) 8.7 L (20.0-40.0) % Price % (Auto) 7.2 (0.0-10.0) % Eos % (Auto) 3.9 (0.0-4.0) % Baso % (Auto) 0.3 (0.0-2.0) % Neut # 7.2 H (1.8-7.0) K/uL Lymph # 0.8 L (1.0-4.3) K/uL Price # 0.6 (0.0-0.8) K/uL Eos # 0.4 (0.0-0.7) K/uL Baso # 0.0 (0.0-0.2) K/uL Sodium 141 (132-148) mmol/L Potassium 4.3 (3.6-5.2) mmol/L Chloride 104 (98-107) mmol/L Carbon Dioxide 25 (22-30) mmol/L Anion Gap 16 (10-20) BUN 44 H (9-20) mg/dL Creatinine 1.3 (0.8-1.5) MG/DL Est GFR ( Amer) > 60 Est GFR (Non-Af Amer) 54 POC Glucose (mg/dL) 122 H (65-110) mg/dL Random Glucose 96 (75-110) mg/dL Calcium 8.2 L (8.6-10.4) mg/dl Phosphorus 2.9 (2.5-4.5) mg/dL Magnesium 1.7 (1.6-2.3) mg/dL Total Bilirubin 0.9 (0.2-1.3) mg/dL AST 11 L D (17-59) U/L ALT 18 L D (21-72) U/L Alkaline Phosphatase 82 (38-126) U/L Total Protein 6.6 (6.3-8.3) g/dL Albumin 2.8 L (3.5-5.0) g/dL Globulin 3.8 (2.2-3.9) gm/dL Albumin/Globulin Ratio 0.7 L (1.0-2.1) 03/23/17 03/23/17 Range/Units 16:17 11:15 WBC (4.8-10.8) K/uL RBC (4.40-5.90) Mil/uL Hgb (12.0-18.0) g/dL Hct (35.0-51.0) % MCV (80.0-94.0) fL MCH (27.0-31.0) pg MCHC (33.0-37.0) g/dL RDW (11.5-14.5) % Plt Count (130-400) K/uL MPV (7.2-11.7) fL Neut % (Auto) (50.0-75.0) % Lymph % (Auto) (20.0-40.0) % Price % (Auto) (0.0-10.0) % Eos % (Auto) (0.0-4.0) % Baso % (Auto) (0.0-2.0) % Neut # (1.8-7.0) K/uL Lymph # (1.0-4.3) K/uL Price # (0.0-0.8) K/uL Eos # (0.0-0.7) K/uL Baso # (0.0-0.2) K/uL Sodium (132-148) mmol/L Potassium (3.6-5.2) mmol/L Chloride (98-107) mmol/L Carbon Dioxide (22-30) mmol/L Anion Gap (10-20) BUN (9-20) mg/dL Creatinine (0.8-1.5) MG/DL Est GFR ( Amer) Est GFR (Non-Af Amer) POC Glucose (mg/dL) 169 H 169 H (65-110) mg/dL Random Glucose (75-110) mg/dL Calcium (8.6-10.4) mg/dl Phosphorus (2.5-4.5) mg/dL Magnesium (1.6-2.3) mg/dL Total Bilirubin (0.2-1.3) mg/dL AST (17-59) U/L ALT (21-72) U/L Alkaline Phosphatase (38-126) U/L Total Protein (6.3-8.3) g/dL Albumin (3.5-5.0) g/dL Globulin (2.2-3.9) gm/dL Albumin/Globulin Ratio (1.0-2.1) Laboratory Results - last 24 hr 03/23/17 03/23/17 03/23/17 11:15 16:17 21:44 WBC RBC Hgb Hct MCV MCH MCHC RDW Plt Count MPV Neut % (Auto) Lymph % (Auto) Price % (Auto) Eos % (Auto) Baso % (Auto) Neut # Lymph # Price # Eos # Baso # Sodium Potassium Chloride Carbon Dioxide Anion Gap BUN Creatinine Est GFR ( Amer) Est GFR (Non-Af Amer) POC Glucose (mg/dL) 169 H 169 H 122 H Random Glucose Calcium Phosphorus Magnesium Total Bilirubin AST ALT Alkaline Phosphatase Total Protein Albumin Globulin Albumin/Globulin Ratio 03/24/17 03/24/17 06:09 06:09 WBC 9.0 RBC 3.10 L Hgb 8.6 L Hct 26.3 L MCV 85.1 MCH 27.8 MCHC 32.6 L RDW 17.6 H Plt Count 280 MPV 8.0 Neut % (Auto) 79.9 H Lymph % (Auto) 8.7 L Price % (Auto) 7.2 Eos % (Auto) 3.9 Baso % (Auto) 0.3 Neut # 7.2 H Lymph # 0.8 L Price # 0.6 Eos # 0.4 Baso # 0.0 Sodium 141 Potassium 4.3 Chloride 104 Carbon Dioxide 25 Anion Gap 16 BUN 44 H Creatinine 1.3 Est GFR ( Amer) > 60 Est GFR (Non-Af Amer) 54 POC Glucose (mg/dL) Random Glucose 96 Calcium 8.2 L Phosphorus 2.9 Magnesium 1.7 Total Bilirubin 0.9 AST 11 L D ALT 18 L D Alkaline Phosphatase 82 Total Protein 6.6 Albumin 2.8 L Globulin 3.8 Albumin/Globulin Ratio 0.7 L Fingerstick Blood Sugar Results: 122 Review of Systems - Constitutional Constitutional: absent: Fever, Chills - EENT Eyes: As Per HPI. absent: Discharge Ears: As Per HPI. absent: Dizziness Nose/Mouth/Throat: As Per HPI. absent: Sore Throat - Cardiovascular Cardiovascular: As Per HPI, Dyspnea on Exertion, Edema, Leg Edema. absent: Chest Pain, Dyspnea - Respiratory Respiratory: As Per HPI, Cough, Dyspnea on Exertion, Chest Congestion. absent: Wheezing - Gastrointestinal Gastrointestinal: As Per HPI. absent: Abdominal Pain, Constipation, Diarrhea, Nausea, Vomiting - Genitourinary Genitourinary: As Per HPI. absent: Dysuria, Hematuria - Musculoskeletal Musculoskeletal: As Par HPI. absent: Numbness, Tingling - Integumentary Integumentary: As Per HPI. absent: Rash - Neurological Neurological: As Per HPI. absent: Headaches, Weakness - Psychiatric Psychiatric: As Per HPI. absent: Anxiety, Depression - Endocrine Endocrine: As Per HPI. absent: Polydipsia, Polyphagia, Polyuria - Hematologic/Lymphatic Hematologic: As Per HPI. absent: Easy Bleeding, Easy Bruising, Lymphadenopathy Critical Care Progress Note - Nutrition Nutrition: Nutrition Category Date Time Status Heart Healthy Diet [DIET] Diets 03/21/17 Dinner Active Assessment/Plan - Assessment and Plan (Free Text) Assessment: 71 M PMHx of CAD, CABG, AFib, DM w/ b/l toe amp, PVD, HTN, chronic anemia admitted for acute on chronic anemia, guiaic positive and hypotension Plan: Neuro: -No acute issues -Alert and oriented 3 Pulm: -f/u AM CXR -Mucinex 600mg po bid -Breathing spontaneously on 2 L nasal cannula. -Duoneb 3ml inh q6 -Advair 100/50 1 puff inh qdaily CV: -Relatively hypotensive for her normally hypertensive patient. -Tachycardic -Chronic systolic congestive heart failure (EF 30-35%, last echo 11/22/2016). -repeat Echo: LV systolic function is severely impaired; EF 25-30%; septal motion consistent with postop state; global hypokinesis of LV; transmitral Doppler flow pattern is GRad II pseudonormal filling dynamics; severe valvular ; MR is moderate; severe pulmonary HTN -Amiodarone 200mg po daily - held this AM -Pletal 100mg po bid - held this AM Heme: -Acute on chronic anemia -FOBT+ -EGD showed monilial esophagitis; small hiatus hernia; erosive gastropathy; normal examined duodenum -s/p 3U PRBC transfusion -Feosol 325mg po bid -CT Abd/pelvis: no evidence of intraperitoneal hemorrhage or retroperitoneal hemorrhage -GI consulted: Dr Ag Renal: -Acute renal failure -ESBL+ in urine -Patient on primaxin 250mg ivpb q6 -Nephrology consulted: Dr Haji Endo: -DM type II -RISS short acting -Lantus 10U sc daily -Neurontin 100mg po bid GI: -FOBT+ -EGD showed monilial esophagitis; small hiatus hernia; erosive gastropathy; normal examined duodenum -Diflucan IVPB daily -s/p 3U PRBC transfusion -CT Abd/pelvis: no evidence of intraperitoneal hemorrhage or retroperitoneal hemorrhage -GI consulted: Dr Ag ID: -ESBL+ in urine -Patient on primaxin 250mg ivpb q6 MSK: -Podiatry following DVT proph - SCDs, holding anticoagulation with possibility of current bleed. GI proph - Protonix 40mg po daily allen for strict I/O's during acute illness Code status - full code Case discussed with Dr. Jacquie Mora PGY2
[2017-03-24 07:28] LABS: B-TYPE NATRIURETIC PEPTIDE 36700 pg/mL (0-900)
--- NOTE | 2017-03-24 08:10 | CP.PCM.PN ---
Subjective - Date & Time of Evaluation Date of Evaluation: 03/24/17 Time of Evaluation: 07:35 - Subjective Subjective: unchanged clinically Objective - Vital Signs/Intake and Output Vital Signs (last 24 hours): Temp Pulse Resp BP Pulse Ox 98.6 F 113 H 14 100/60 94 L 03/24/17 04:00 03/24/17 07:00 03/24/17 07:00 03/24/17 06:24 03/24/17 07:00 Intake and Output: 03/24/17 03/24/17 06:59 18:59 Intake Total 740 Output Total 750 300 Balance -10 -300 - Medications Medications: Current Medications Albuterol/Ipratropium (Duoneb 3 Mg/0.5 Mg (3 Ml) Ud) 3 ml INH RQ8 [facility] Last Admin: 03/24/17 08:04 Dose: 3 ml Amiodarone HCl (Cordarone) 200 mg PO DAILY [facility] Last Admin: 03/23/17 09:03 Dose: 200 mg Cilostazol (Pletal) 100 mg PO BID [facility] Last Admin: 03/23/17 17:35 Dose: 100 mg Collagenase (Santyl) 1 gm TOP DAILY [facility] Last Admin: 03/23/17 09:05 Dose: 1 applic Ferrous Sulfate (Feosol) 325 mg PO BID [facility] Last Admin: 03/23/17 17:35 Dose: 325 mg Gabapentin (Neurontin) 100 mg PO BID [facility] Last Admin: 03/23/17 17:35 Dose: 100 mg Guaifenesin (Mucinex La) 600 mg PO BID [facility] Fluconazole (Diflucan Iv 200 Mg/100 Ml Ns) 100 mls @ 100 mls/hr IVPB DAILY [facility] Stop: 04/04/17 10:59 Last Admin: 03/23/17 09:12 Dose: 100 mls/hr Imipenem/Cilastatin Sodium 250 (mg/ Sodium Chloride) 100 mls @ 100 mls/hr IVPB Q6H [facility] Last Admin: 03/24/17 05:07 Dose: 100 mls/hr Insulin Aspart (Novolog) 0 unit SC ACHS [facility] PRN Reason: Protocol Last Admin: 03/23/17 21:50 Dose: Not Given Insulin Glargine (Lantus) 10 unit SC DAILY [facility] Last Admin: 03/23/17 09:04 Dose: 10 u Mupirocin (Bactroban Ointment) 0 gm TOP BID [facility] Last Admin: 03/23/17 17:34 Dose: 1 applic Pantoprazole Sodium (Protonix Ec Tab) 40 mg PO DAILY [facility] Last Admin: 03/23/17 09:05 Dose: 40 mg Fluticasone/Salmeterol (Advair Diskus 100/50) 1 puff IH RQD [facility] Last Admin: 03/22/17 10:27 Dose: 1 puff - Labs Labs: 03/24/17 06:09 03/24/17 06:09 PT 24.6 SECONDS (9.7-12.2) H 03/18/17 17:38 INR 2.1 03/18/17 17:38 APTT 33 SECONDS (21-34) 03/18/17 17:38 - Constitutional Appears: Non-toxic - Head Exam Head Exam: NORMAL INSPECTION - Eye Exam Eye Exam: Normal appearance Pupil Exam: NORMAL ACCOMODATION - ENT Exam ENT Exam: Mucous Membranes Moist - Neck Exam Neck Exam: Full ROM - Respiratory Exam Respiratory Exam: Decreased Breath Sounds - Cardiovascular Exam Cardiovascular Exam: Irregular Rhythm - GI/Abdominal Exam GI & Abdominal Exam: Normal Bowel Sounds - Rectal Exam Rectal Exam: Deferred - Extremities Exam Extremities Exam: absent: Pedal Edema - Back Exam Back Exam: NORMAL INSPECTION - Neurological Exam Neurological Exam: Alert - Psychiatric Exam Psychiatric exam: Normal Affect - Skin Skin Exam: Normal Color Assessment and Plan (1) Acute exacerbation of CHF (congestive heart failure) Assessment & Plan: medical therapy, and will need continued diuresis Status: Acute (2) Anemia Assessment & Plan: follow hgb Status: Acute (3) A-fib Assessment & Plan: rate control Status: Acute (4) Aortic stenosis Assessment & Plan: medical therapy Status: Acute
[2017-03-24] MEDS: (Novolog) Insulin Aspart, Recombinant 100 u/ml 10 ml vial SC SCH ×4 (08:18→21:21)
--- NOTE | 2017-03-24 08:47 | RAD ---
Chest x-ray single frontal view History: Coughing. Comparison: 03/22/2017 Findings: Moderate to severe venous congestion with bibasilar airspace opacities and small bilateral pleural effusions. Right peritracheal airspace opacity may represent prominent vasculature. Cardiomegaly. Calcification at the aortic knob. Status post median sternotomy. Degenerative changes in the spine and shoulders. Right PICC line with tip extending to the mid right SVC. Impression: Moderate to severe venous congestion with bibasilar airspace opacities and small bilateral pleural effusions. Right peritracheal airspace opacity may represent prominent vasculature. Cardiomegaly. Calcification at the aortic knob. Status post median sternotomy. Degenerative changes in the spine and shoulders. Right PICC line with tip extending to the mid right SVC.
[2017-03-24] MEDS: Pantoprazole 40 mg EC Tab PO SCH (09:51)
[2017-03-24] MEDS: (Lantus) Insulin Glargine, Recombinant SC SCH (09:51)
[2017-03-24] MEDS: guaiFENesin 600 mg ER Tab PO SCH ×2 (09:52→17:20)
[2017-03-24] MEDS: Cilostazol 100 mg Tab UD PO SCH ×2 (09:52→17:19)
[2017-03-24] MEDS: Fluconazole IV 200mg/100 ml NS 100 ML IVPB SCH (09:53)
[2017-03-24] MEDS: Collagenase 250 Units/gm Ointment(30 gm) TOP SCH (09:55)
--- NOTE | 2017-03-24 10:26 | CP.PCM.PN ---
Subjective - Date & Time of Evaluation Date of Evaluation: 03/24/17 Time of Evaluation: 10:23 - Subjective Subjective: Patient complain of cough. He denies having nausea, vomiting and abdominal pain. He has not had a bowel movement so far today. Objective - Vital Signs/Intake and Output Vital Signs (last 24 hours): Temp Pulse Resp BP Pulse Ox 98.4 F 118 H 14 108/61 97 03/24/17 08:00 03/24/17 09:00 03/24/17 09:00 03/24/17 08:24 03/24/17 09:00 Intake and Output: 03/24/17 03/24/17 06:59 18:59 Intake Total 740 200 Output Total 750 300 Balance -10 -100 - Medications Medications: Current Medications Albuterol/Ipratropium (Duoneb 3 Mg/0.5 Mg (3 Ml) Ud) 3 ml INH RQ8 [facility] Last Admin: 03/24/17 08:04 Dose: 3 ml Amiodarone HCl (Cordarone) 200 mg PO DAILY [facility] Last Admin: 03/24/17 09:52 Dose: 200 mg Cilostazol (Pletal) 100 mg PO BID [facility] Last Admin: 03/24/17 09:52 Dose: 100 mg Collagenase (Santyl) 1 gm TOP DAILY [facility] Last Admin: 03/24/17 09:55 Dose: 1 applic Ferrous Sulfate (Feosol) 325 mg PO BID [facility] Last Admin: 03/24/17 09:52 Dose: 325 mg Gabapentin (Neurontin) 100 mg PO BID [facility] Last Admin: 03/24/17 09:51 Dose: 100 mg Guaifenesin (Mucinex La) 600 mg PO BID [facility] Last Admin: 03/24/17 09:52 Dose: 600 mg Fluconazole (Diflucan Iv 200 Mg/100 Ml Ns) 100 mls @ 100 mls/hr IVPB DAILY [facility] Stop: 04/04/17 10:59 Last Admin: 03/24/17 09:53 Dose: 100 mls/hr Imipenem/Cilastatin Sodium 250 (mg/ Sodium Chloride) 100 mls @ 100 mls/hr IVPB Q6H [facility] Last Admin: 03/24/17 05:07 Dose: 100 mls/hr Insulin Aspart (Novolog) 0 unit SC ACHS [facility] PRN Reason: Protocol Last Admin: 03/24/17 08:18 Dose: 2 unit Insulin Glargine (Lantus) 10 unit SC DAILY [facility] Last Admin: 03/24/17 09:51 Dose: 10 u Mupirocin (Bactroban Ointment) 0 gm TOP BID [facility] Last Admin: 03/24/17 09:53 Dose: 1 applic Pantoprazole Sodium (Protonix Ec Tab) 40 mg PO DAILY [facility] Last Admin: 03/24/17 09:51 Dose: 40 mg Fluticasone/Salmeterol (Advair Diskus 100/50) 1 puff IH RQD [facility] Last Admin: 03/22/17 10:27 Dose: 1 puff - Labs Labs: 03/24/17 06:09 03/24/17 06:09 PT 24.6 SECONDS (9.7-12.2) H 03/18/17 17:38 INR 2.1 03/18/17 17:38 APTT 33 SECONDS (21-34) 03/18/17 17:38 - Constitutional Appears: No Acute Distress - Head Exam Head Exam: ATRAUMATIC, NORMOCEPHALIC - Eye Exam Eye Exam: EOMI - Neck Exam Neck Exam: absent: Lymphadenopathy, Thyromegaly - Respiratory Exam Respiratory Exam: NORMAL BREATHING PATTERN. absent: Rales, Rhonchi, Wheezes - Cardiovascular Exam Cardiovascular Exam: REGULAR RHYTHM, +S1, +S2. absent: Gallop, Rubs, Murmur - GI/Abdominal Exam GI & Abdominal Exam: Soft, Normal Bowel Sounds. absent: Tenderness, Mass, Organomegaly - Rectal Exam Rectal Exam: Deferred - Extremities Exam Extremities Exam: Pedal Edema. absent: Calf Tenderness Additional comments: 1+ pretibial edema bilaterally Assessment and Plan (1) Anemia Assessment & Plan: CT scan showed significant ascites. Since this is evidently of recent onset, a diagnostic paracentesis should be performed, with fluid sent for: 1) cell count and differential; 2) culture and sensitivity; 3) albumin and total protein; and 4) cytology. Status: Acute
--- NOTE | 2017-03-24 11:04 | CP.PCM.PN ---
Subjective - Date & Time of Evaluation Date of Evaluation: 03/24/17 Time of Evaluation: 11:02 - Subjective Subjective: c/o dry cough. Afebrile now UO about 2000ml/24hrs Creat less at 1.3 no n, v, CPs, dysuria Objective - Vital Signs/Intake and Output Vital Signs (last 24 hours): Temp Pulse Resp BP Pulse Ox 98.4 F 118 H 14 108/61 97 03/24/17 08:00 03/24/17 09:00 03/24/17 09:00 03/24/17 08:24 03/24/17 09:00 Intake and Output: 03/24/17 03/24/17 06:59 18:59 Intake Total 740 540 Output Total 750 300 Balance -10 240 - Medications Medications: Current Medications Albuterol/Ipratropium (Duoneb 3 Mg/0.5 Mg (3 Ml) Ud) 3 ml INH RQ8 [facility] Last Admin: 03/24/17 08:04 Dose: 3 ml Amiodarone HCl (Cordarone) 200 mg PO DAILY [facility] Last Admin: 03/24/17 09:52 Dose: 200 mg Cilostazol (Pletal) 100 mg PO BID [facility] Last Admin: 03/24/17 09:52 Dose: 100 mg Collagenase (Santyl) 1 gm TOP DAILY [facility] Last Admin: 03/24/17 09:55 Dose: 1 applic Ferrous Sulfate (Feosol) 325 mg PO BID [facility] Last Admin: 03/24/17 09:52 Dose: 325 mg Gabapentin (Neurontin) 100 mg PO BID [facility] Last Admin: 03/24/17 09:51 Dose: 100 mg Guaifenesin (Mucinex La) 600 mg PO BID [facility] Last Admin: 03/24/17 09:52 Dose: 600 mg Fluconazole (Diflucan Iv 200 Mg/100 Ml Ns) 100 mls @ 100 mls/hr IVPB DAILY [facility] Stop: 04/04/17 10:59 Last Admin: 03/24/17 09:53 Dose: 100 mls/hr Imipenem/Cilastatin Sodium 250 (mg/ Sodium Chloride) 100 mls @ 100 mls/hr IVPB Q6H [facility] Last Admin: 03/24/17 05:07 Dose: 100 mls/hr Insulin Aspart (Novolog) 0 unit SC ACHS [facility] PRN Reason: Protocol Last Admin: 03/24/17 08:18 Dose: 2 unit Insulin Glargine (Lantus) 10 unit SC DAILY [facility] Last Admin: 03/24/17 09:51 Dose: 10 u Mupirocin (Bactroban Ointment) 0 gm TOP BID [facility] Last Admin: 03/24/17 09:53 Dose: 1 applic Pantoprazole Sodium (Protonix Ec Tab) 40 mg PO DAILY [facility] Last Admin: 03/24/17 09:51 Dose: 40 mg Fluticasone/Salmeterol (Advair Diskus 100/50) 1 puff IH RQD [facility] Last Admin: 03/22/17 10:27 Dose: 1 puff - Labs Labs: 03/24/17 06:09 03/24/17 06:09 PT 24.6 SECONDS (9.7-12.2) H 03/18/17 17:38 INR 2.1 03/18/17 17:38 APTT 33 SECONDS (21-34) 03/18/17 17:38 - Constitutional Appears: No Acute Distress, Chronically Ill - Head Exam Head Exam: ATRAUMATIC, NORMAL INSPECTION - Eye Exam Eye Exam: EOMI, Normal appearance - Respiratory Exam Respiratory Exam: Clear to Ausculation Bilateral, NORMAL BREATHING PATTERN - Cardiovascular Exam Cardiovascular Exam: REGULAR RHYTHM, +S1 - GI/Abdominal Exam GI & Abdominal Exam: Soft. absent: Tenderness - Extremities Exam Extremities Exam: Calf Tenderness, Tenderness - Neurological Exam Neurological Exam: Alert, CN II-XII Intact - Skin Skin Exam: Dry, Warm Assessment and Plan (1) LETICIA (acute kidney injury) Status: Acute (2) UTI due to extended-spectrum beta lactamase (ESBL) producing Escherichia coli Status: Acute (3) Dehydration Status: Acute (4) Diabetic peripheral angiopathy Status: Acute - Assessment and Plan (Free Text) Plan: Continue rx UTI Monitor renal function , lytes
--- NOTE | 2017-03-24 12:31 | CARD ---
APPROVED REPORT EKG Measurement Heart [id number] VA 160P [id number] <Conclusion> Sinus rhythm with premature ventricular complexes or fusion complexes Left axis deviation Left bundle branch block Abnormal ECG
--- NOTE | 2017-03-24 16:28 | CP.PCM.PN ---
Subjective - Date & Time of Evaluation Date of Evaluation: 03/24/17 Time of Evaluation: 14:00 - Subjective Subjective: Patient seen bedside regarding B/L TMA sites. He is seen bedside in the ICU in [facility]. Patient appears more alert today, however does not know what day it is. Denies any pain or complications to LE. Denies F/C/N/V/SOB, just complains of cough. Objective - Vital Signs/Intake and Output Vital Signs (last 24 hours): Temp Pulse Resp BP Pulse Ox 98.4 F 105 H 16 96/60 L 100 03/24/17 08:00 03/24/17 11:00 03/24/17 11:00 03/24/17 10:24 03/24/17 11:00 Intake and Output: 03/24/17 03/24/17 06:59 18:59 Intake Total 740 540 Output Total 750 300 Balance -10 240 - Medications Medications: Current Medications Albuterol/Ipratropium (Duoneb 3 Mg/0.5 Mg (3 Ml) Ud) 3 ml INH RQ8 [facility] Last Admin: 03/24/17 08:04 Dose: 3 ml Amiodarone HCl (Cordarone) 200 mg PO DAILY [facility] Last Admin: 03/24/17 09:52 Dose: 200 mg Cilostazol (Pletal) 100 mg PO BID [facility] Last Admin: 03/24/17 09:52 Dose: 100 mg Collagenase (Santyl) 1 gm TOP DAILY [facility] Last Admin: 03/24/17 09:55 Dose: 1 applic Ferrous Sulfate (Feosol) 325 mg PO BID [facility] Last Admin: 03/24/17 09:52 Dose: 325 mg Gabapentin (Neurontin) 100 mg PO BID [facility] Last Admin: 03/24/17 09:51 Dose: 100 mg Guaifenesin (Mucinex La) 600 mg PO BID [facility] Last Admin: 03/24/17 09:52 Dose: 600 mg Fluconazole (Diflucan Iv 200 Mg/100 Ml Ns) 100 mls @ 100 mls/hr IVPB DAILY [facility] Stop: 04/04/17 10:59 Last Admin: 03/24/17 09:53 Dose: 100 mls/hr Imipenem/Cilastatin Sodium 250 (mg/ Sodium Chloride) 100 mls @ 100 mls/hr IVPB Q6H [facility] Last Admin: 03/24/17 12:07 Dose: 100 mls/hr Insulin Aspart (Novolog) 0 unit SC ACHS [facility] PRN Reason: Protocol Last Admin: 03/24/17 12:07 Dose: Not Given Insulin Glargine (Lantus) 10 unit SC DAILY [facility] Last Admin: 03/24/17 09:51 Dose: 10 u Mupirocin (Bactroban Ointment) 0 gm TOP BID [facility] Last Admin: 03/24/17 09:53 Dose: 1 applic Pantoprazole Sodium (Protonix Ec Tab) 40 mg PO DAILY [facility] Last Admin: 03/24/17 09:51 Dose: 40 mg Fluticasone/Salmeterol (Advair Diskus 100/50) 1 puff IH RQD [facility] Last Admin: 03/22/17 10:27 Dose: 1 puff - Labs Labs: 03/24/17 06:09 03/24/17 06:09 PT 24.6 SECONDS (9.7-12.2) H 03/18/17 17:38 INR 2.1 03/18/17 17:38 APTT 33 SECONDS (21-34) 03/18/17 17:38 - Constitutional Appears: No Acute Distress - Extremities Exam Additional comments: B/L TMA site dressings clean, dry and itnact. - Neurological Exam Neurological Exam: Alert, Awake. 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 Plan: evaluated with all questions addressed and answered. discussed with Dr. Barnes. dressings left clean, dry and intact. to continue dressing changes every other day. will continue to follow while in hospital.
[2017-03-25] MEDS: Albuterol-Ipratrop 3 mg / 0.5 (3 ml) UD INH SCH ×3 (00:01→16:25)
[2017-03-25] MEDS: Imipenem/Cilastatin 250 MG in Sodium Chloride 100 ML IVPB SCH ×4 (05:57→23:40)
[2017-03-25 06:26] LABS: BASO % 0.6 % (0.0-2.0); EOS # 0.4 K/uL (0.0-0.7); EOS % 5.2 % (0.0-4.0); HEMOGLOBIN 8.4 g/dL (12.0-18.0); LYMPH # 0.8 K/uL (1.0-4.3); LYMPH % 10.1 % (20.0-40.0); MEAN CELL VOLUME 84.6 fL (80.0-94.0); MEAN CORPUSCULAR HGB CONC 31.9 g/dL (33.0-37.0); MEAN PLATELET VOLUME 8.2 fL (7.2-11.7); MONO # 0.5 K/uL (0.0-0.8); MONO % 6.8 % (0.0-10.0); NEUT # 6.1 K/uL (1.8-7.0); NEUT % 77.3 % (50.0-75.0); NRBC % 0.1 % (0.0-2.0); RBC 3.12 Mil/uL (4.40-5.90); RED CELL DISTRIBUTION WIDTH 17.7 % (11.5-14.5); WHITE BLOOD COUNT 7.9 K/uL (4.8-10.8)
[2017-03-25 06:34] LABS: ALBUMIN 2.8 g/dL (3.5-5.0)
[2017-03-25 06:37] LABS: ALB/GLOB RATIO 0.7 (1.0-2.1); ALT/SGPT 11 U/L (21-72); AST/SGOT 19 U/L (17-59); BLOOD UREA NITROGEN 44 mg/dL (9-20); GFR AFRICAN-AMERICAN > 60; GFR NON-AFRICAN AMERICAN 50
[2017-03-25 06:38] LABS: CALCIUM 8.5 mg/dl (8.6-10.4); INR 1.4; MAGNESIUM 1.9 mg/dL (1.6-2.3); PROTHROMBIN TIME 15.8 SECONDS (9.7-12.2)
[2017-03-25 07:06] LABS: HEPATITIS B SURFACE AG NEGATIVE (NEGATIVE)
[2017-03-25 07:10] LABS: HEPATITIS B CORE AB NEGATIVE (NEGATIVE)
[2017-03-25 07:22] LABS: HEPATITIS C ANTIBODY NEGATIVE (NEGATIVE)
[2017-03-25] MEDS: (Novolog) Insulin Aspart, Recombinant 100 u/ml 10 ml vial SC SCH ×4 (08:00→21:23)
[2017-03-25] MEDS ORDERED: POLYETHYLENE GLYCOL 3350 17 GM/Dose PACKET PO ONE (08:21)
--- NOTE | 2017-03-25 08:29 | CP.CCUPN ---
<Beth Mora - Last Filed: 03/25/17 08:18> CCU Subjective - Physician Review Subjective (Free Text): 03/25/17 08:18 Patient seen and examined at bedside. Patient was afebrile overnight and nursing reported to acute events. Patient continues to be tachycardic and SBP is 90s. Patient also continues to have a cough but is unable to bring up any sputum. He reports pain and swelling in his legs is unchanged. He denied fever, chills, headache, dizziness, chest pain, palpitations, abd pain , nausea, vomiting, bowel/bladder complaints. Patient reports not having a BM for some days now but is having good UO. CCU Objective - Vital Signs / Intake & Output Vital Signs (Last 4 hours): Vital Signs Pulse Resp BP Pulse Ox 03/25/17 07:25 89/60 L 03/25/17 07:24 107 H 16 91 L 03/25/17 07:00 102 H 12 93 L 03/25/17 06:25 106 H 14 96/56 L 83 L 03/25/17 06:00 105 H 17 03/25/17 05:24 109 H 16 104/71 03/25/17 05:00 106 H 18 97 03/25/17 04:24 105 H 14 96/61 L Intake and Output (Last 8hrs): Intake & Output 03/24/17 03/25/17 03/25/17 22:59 06:59 14:59 Intake Total 270 200 0 Output Total 0 300 Balance 270 -100 0 Weight 184 lb Intake: Intake, IV Amount 100 200 Right PICC #2 100 200 Oral 170 0 0 Output: Urine 0 300 Urine, Voided 0 300 - Physical Exam Head: Positive for: Atraumatic, Normocephalic Pupils: Positive for: PERRL Extroacular Muscles: Positive for: EOMI Conjunctiva: Positive for: Normal. Negative for: Injected, Icteric Mouth: Positive for: Moist Mucous Membranes Nose (Internal): Positive for: Normal Inspection Neck: Positive for: Normal Range of Motion Respiratory/Chest: Positive for: Rhonchi. Negative for: Clear to Auscultation, Respiratory Distress, Accessory Muscle Use, Wheezes Cardiovascular: Positive for: Murmurs (L sternal border), Normal S1, S2, Irregular Rhythm, Tachycardic. Negative for: Regular Rate and Rhythm Abdomen: Positive for: Normal Bowel Sounds. Negative for: Tenderness, Distention Upper Extremity: Positive for: Normal Inspection, Other (R arm PICC line in place). Negative for: Edema Lower Extremity: Positive for: Edema (+2 to knees b/l L > R), Other (b/l foot dressings c/d/i). Negative for: Normal Inspection Neurological: Positive for: GCS=15, CN II-XII Intact, Speech Normal Skin: Positive for: Warm, Dry, Normal Color Psychiatric: Positive for: Alert, Oriented x 3, Normal Insight, Normal Concentration - Medications Active Medications: Active Medications Generic Name Dose Route Start Last Admin Trade Name Freq PRN Reason Stop Dose Admin Albuterol/Ipratropium 3 ml 03/24/17 00:00 03/25/17 08:03 Duoneb 3 Mg/0.5 Mg (3 Ml) Ud INH 3 ml RQ8 WAAIS Administration Amiodarone HCl 200 mg 03/19/17 10:00 03/24/17 09:52 Cordarone PO 200 mg DAILY AWAIS Administration Cilostazol 100 mg 03/18/17 18:00 03/24/17 17:19 Pletal PO 100 mg BID AWAIS Administration Collagenase 1 gm 03/21/17 10:00 03/24/17 09:55 Santyl TOP 1 applic DAILY AWAIS Administration Ferrous Sulfate 325 mg 03/18/17 18:00 03/24/17 17:19 Feosol PO 325 mg BID AWAIS Administration Gabapentin 100 mg 03/18/17 18:00 03/24/17 17:19 Neurontin PO 100 mg BID AWAIS Administration Guaifenesin 600 mg 03/24/17 10:00 03/24/17 17:20 Mucinex La PO 600 mg BID AWAIS Administration Fluconazole 100 mls @ 100 mls/hr 03/22/17 10:00 03/24/17 09:53 Diflucan Iv 200 Mg/100 Ml Ns IVPB 04/04/17 10:59 100 mls/hr DAILY AWAIS Administration Imipenem/Cilastatin Sodium 250 100 mls @ 100 mls/hr 03/22/17 12:00 03/25/17 05:57 mg/ Sodium Chloride IVPB 100 mls/hr Q6H AWAIS Administration Insulin Aspart 0 unit 03/22/17 11:30 03/24/17 21:21 Novolog SC Not Given ACHS AWAIS Protocol Insulin Glargine 10 unit 03/19/17 10:00 03/24/17 09:51 Lantus SC 10 u DAILY AWAIS Administration Mupirocin 0 gm 03/18/17 18:00 03/24/17 17:22 Bactroban Ointment TOP 1 applic BID AWAIS Administration Pantoprazole Sodium 40 mg 03/23/17 10:00 03/24/17 09:51 Protonix Ec Tab PO 40 mg DAILY AWAIS Administration Fluticasone/Salmeterol 1 puff 03/18/17 16:45 03/22/17 10:27 Advair Diskus 100/50 IH 1 puff RQD AWAIS Administration - Patient Studies Lab Studies: Lab Studies 03/25/17 03/25/17 03/25/17 Range/Units 07:23 06:16 06:16 WBC (4.8-10.8) K/uL RBC (4.40-5.90) Mil/uL Hgb (12.0-18.0) g/dL Hct (35.0-51.0) % MCV (80.0-94.0) fL MCH (27.0-31.0) pg MCHC (33.0-37.0) g/dL RDW (11.5-14.5) % Plt Count (130-400) K/uL MPV (7.2-11.7) fL Neut % (Auto) (50.0-75.0) % Lymph % (Auto) (20.0-40.0) % [place] % (Auto) (0.0-10.0) % Eos % (Auto) (0.0-4.0) % Baso % (Auto) (0.0-2.0) % Neut # (1.8-7.0) K/uL Lymph # (1.0-4.3) K/uL [place] # (0.0-0.8) K/uL Eos # (0.0-0.7) K/uL Baso # (0.0-0.2) K/uL PT (9.7-12.2) SECONDS INR Sodium (132-148) mmol/L Potassium (3.6-5.2) mmol/L Chloride (98-107) mmol/L Carbon Dioxide (22-30) mmol/L Anion Gap (10-20) BUN (9-20) mg/dL Creatinine (0.8-1.5) MG/DL Est GFR ( Amer) Est GFR (Non-Af Amer) POC Glucose (mg/dL) 90 (65-110) mg/dL Random Glucose (75-110) mg/dL Calcium (8.6-10.4) mg/dl Phosphorus (2.5-4.5) mg/dL Magnesium (1.6-2.3) mg/dL Total Bilirubin (0.2-1.3) mg/dL AST (17-59) U/L ALT (21-72) U/L Alkaline Phosphatase (38-126) U/L Total Protein (6.3-8.3) g/dL Albumin (3.5-5.0) g/dL Globulin (2.2-3.9) gm/dL Albumin/Globulin Ratio (1.0-2.1) Hep Bs Antigen (NEGATIVE) Hep Bs Antibody Negative (NEGATIVE) Hep B Core IgM Ab Negative (NEGATIVE) Hepatitis C Antibody Negative (NEGATIVE) 03/25/17 03/25/17 03/25/17 Range/Units 06:16 06:16 06:16 WBC 7.9 (4.8-10.8) K/uL RBC 3.12 L (4.40-5.90) Mil/uL Hgb 8.4 L (12.0-18.0) g/dL Hct 26.4 L (35.0-51.0) % MCV 84.6 (80.0-94.0) fL MCH 27.0 (27.0-31.0) pg MCHC 31.9 L (33.0-37.0) g/dL RDW 17.7 H (11.5-14.5) % Plt Count 277 (130-400) K/uL MPV 8.2 (7.2-11.7) fL Neut % (Auto) 77.3 H (50.0-75.0) % Lymph % (Auto) 10.1 L (20.0-40.0) % [place] % (Auto) 6.8 (0.0-10.0) % Eos % (Auto) 5.2 H (0.0-4.0) % Baso % (Auto) 0.6 (0.0-2.0) % Neut # 6.1 (1.8-7.0) K/uL Lymph # 0.8 L (1.0-4.3) K/uL [place] # 0.5 (0.0-0.8) K/uL Eos # 0.4 (0.0-0.7) K/uL Baso # 0.0 (0.0-0.2) K/uL PT 15.8 H (9.7-12.2) SECONDS INR 1.4 Sodium 138 (132-148) mmol/L Potassium 4.6 (3.6-5.2) mmol/L Chloride 103 (98-107) mmol/L Carbon Dioxide 27 (22-30) mmol/L Anion Gap 13 (10-20) BUN 44 H (9-20) mg/dL Creatinine 1.4 (0.8-1.5) MG/DL Est GFR ( Amer) > 60 Est GFR (Non-Af Amer) 50 POC Glucose (mg/dL) (65-110) mg/dL Random Glucose 82 (75-110) mg/dL Calcium 8.5 L (8.6-10.4) mg/dl Phosphorus 3.0 (2.5-4.5) mg/dL Magnesium 1.9 (1.6-2.3) mg/dL Total Bilirubin 1.1 (0.2-1.3) mg/dL AST 19 (17-59) U/L ALT 11 L D (21-72) U/L Alkaline Phosphatase 83 (38-126) U/L Total Protein 6.7 (6.3-8.3) g/dL Albumin 2.8 L (3.5-5.0) g/dL Globulin 3.9 (2.2-3.9) gm/dL Albumin/Globulin Ratio 0.7 L (1.0-2.1) Hep Bs Antigen Negative (NEGATIVE) Hep Bs Antibody (NEGATIVE) Hep B Core IgM Ab (NEGATIVE) Hepatitis C Antibody (NEGATIVE) 03/24/17 03/24/17 03/24/17 Range/Units 21:16 16:18 12:07 WBC (4.8-10.8) K/uL RBC (4.40-5.90) Mil/uL Hgb (12.0-18.0) g/dL Hct (35.0-51.0) % MCV (80.0-94.0) fL MCH (27.0-31.0) pg MCHC (33.0-37.0) g/dL RDW (11.5-14.5) % Plt Count (130-400) K/uL MPV (7.2-11.7) fL Neut % (Auto) (50.0-75.0) % Lymph % (Auto) (20.0-40.0) % [place] % (Auto) (0.0-10.0) % Eos % (Auto) (0.0-4.0) % Baso % (Auto) (0.0-2.0) % Neut # (1.8-7.0) K/uL Lymph # (1.0-4.3) K/uL [place] # (0.0-0.8) K/uL Eos # (0.0-0.7) K/uL Baso # (0.0-0.2) K/uL PT (9.7-12.2) SECONDS INR Sodium (132-148) mmol/L Potassium (3.6-5.2) mmol/L Chloride (98-107) mmol/L Carbon Dioxide (22-30) mmol/L Anion Gap (10-20) BUN (9-20) mg/dL Creatinine (0.8-1.5) MG/DL Est GFR ( Amer) Est GFR (Non-Af Amer) POC Glucose (mg/dL) 99 123 H 101 (65-110) mg/dL Random Glucose (75-110) mg/dL Calcium (8.6-10.4) mg/dl Phosphorus (2.5-4.5) mg/dL Magnesium (1.6-2.3) mg/dL Total Bilirubin (0.2-1.3) mg/dL AST (17-59) U/L ALT (21-72) U/L Alkaline Phosphatase (38-126) U/L Total Protein (6.3-8.3) g/dL Albumin (3.5-5.0) g/dL Globulin (2.2-3.9) gm/dL Albumin/Globulin Ratio (1.0-2.1) Hep Bs Antigen (NEGATIVE) Hep Bs Antibody (NEGATIVE) Hep B Core IgM Ab (NEGATIVE) Hepatitis C Antibody (NEGATIVE) Laboratory Results - last 24 hr 03/24/17 03/24/17 03/24/17 12:07 16:18 21:16 WBC RBC Hgb Hct MCV MCH MCHC RDW Plt Count MPV Neut % (Auto) Lymph % (Auto) [place] % (Auto) Eos % (Auto) Baso % (Auto) Neut # Lymph # [place] # Eos # Baso # PT INR Sodium Potassium Chloride Carbon Dioxide Anion Gap BUN Creatinine Est GFR ( Amer) Est GFR (Non-Af Amer) POC Glucose (mg/dL) 101 123 H 99 Random Glucose Calcium Phosphorus Magnesium Total Bilirubin AST ALT Alkaline Phosphatase Total Protein Albumin Globulin Albumin/Globulin Ratio Hep Bs Antigen Hep Bs Antibody Hep B Core IgM Ab Hepatitis C Antibody 03/25/17 03/25/17 03/25/17 06:16 06:16 06:16 WBC 7.9 RBC 3.12 L Hgb 8.4 L Hct 26.4 L MCV 84.6 MCH 27.0 MCHC 31.9 L RDW 17.7 H Plt Count 277 MPV 8.2 Neut % (Auto) 77.3 H Lymph % (Auto) 10.1 L [place] % (Auto) 6.8 Eos % (Auto) 5.2 H Baso % (Auto) 0.6 Neut # 6.1 Lymph # 0.8 L [place] # 0.5 Eos # 0.4 Baso # 0.0 PT 15.8 H INR 1.4 Sodium 138 Potassium 4.6 Chloride 103 Carbon Dioxide 27 Anion Gap 13 BUN 44 H Creatinine 1.4 Est GFR ( Amer) > 60 Est GFR (Non-Af Amer) 50 POC Glucose (mg/dL) Random Glucose 82 Calcium 8.5 L Phosphorus 3.0 Magnesium 1.9 Total Bilirubin 1.1 AST 19 ALT 11 L D Alkaline Phosphatase 83 Total Protein 6.7 Albumin 2.8 L Globulin 3.9 Albumin/Globulin Ratio 0.7 L Hep Bs Antigen Negative Hep Bs Antibody Hep B Core IgM Ab Hepatitis C Antibody 03/25/17 03/25/17 03/25/17 06:16 06:16 07:23 WBC RBC Hgb Hct MCV MCH MCHC RDW Plt Count MPV Neut % (Auto) Lymph % (Auto) [place] % (Auto) Eos % (Auto) Baso % (Auto) Neut # Lymph # [place] # Eos # Baso # PT INR Sodium Potassium Chloride Carbon Dioxide Anion Gap BUN Creatinine Est GFR ( Amer) Est GFR (Non-Af Amer) POC Glucose (mg/dL) 90 Random Glucose Calcium Phosphorus Magnesium Total Bilirubin AST ALT Alkaline Phosphatase Total Protein Albumin Globulin Albumin/Globulin Ratio Hep Bs Antigen Hep Bs Antibody Negative Hep B Core IgM Ab Negative Hepatitis C Antibody Negative Fingerstick Blood Sugar Results: 99 Review of Systems - Constitutional Constitutional: absent: Fever, Chills - EENT Eyes: As Per HPI. absent: Dry Eye Ears: As Per HPI. absent: Tinnitus, Dizziness Nose/Mouth/Throat: As Per HPI. absent: Sore Throat - Cardiovascular Cardiovascular: As Per HPI, Dyspnea on Exertion, Edema, Leg Edema, Palpitations. absent: Chest Pain, Dyspnea - Respiratory Respiratory: As Per HPI, Cough, Dyspnea on Exertion, Chest Congestion. absent: Wheezing - Gastrointestinal Gastrointestinal: As Per HPI, Constipation. absent: Abdominal Pain, Diarrhea, Nausea, Vomiting - Genitourinary Genitourinary: As Per HPI. absent: Dysuria, Hematuria, Nocturia - Musculoskeletal Musculoskeletal: As Par HPI. absent: Back Pain, Numbness, Tingling - Integumentary Integumentary: As Per HPI. absent: Dry Skin, Rash - Neurological Neurological: As Per HPI. absent: Dizziness, Numbness, Headaches, Tingling, Weakness - Psychiatric Psychiatric: As Per HPI. absent: Anxiety, Depression - Endocrine Endocrine: As Per HPI. absent: Polydipsia, Polyphagia, Polyuria Critical Care Progress Note - Nutrition Nutrition: Nutrition Category Date Time Status Heart Healthy Diet [DIET] Diets 03/21/17 Dinner Active Assessment/Plan - Assessment and Plan (Free Text) Assessment: 71 M PMHx of CAD, CABG, AFib, DM w/ b/l toe amp, PVD, HTN, chronic anemia admitted for acute on chronic anemia, guiaic positive and hypotension Plan: Neuro: -No acute issues -Alert and oriented 3 Pulm: -CXR 03/24: moderate to severe venous congestion with bibasilar airspace opacities and small b/l pleural effusions. R peritracheal airspace opacity may represent prominent vasculature -Mucinex 600mg po bid -Breathing spontaneously on 2 L nasal cannula. -Duoneb 3ml inh q6 -Advair 100/50 1 puff inh qdaily -Chest PT -OOB to chair CV: -Relatively hypotensive for her normally hypertensive patient. -Tachycardic -Chronic systolic congestive heart failure (EF 30-35%, last echo 11/22/2016). -repeat Echo: LV systolic function is severely impaired; EF 25-30%; septal motion consistent with postop state; global hypokinesis of LV; transmitral Doppler flow pattern is GRad II pseudonormal filling dynamics; severe valvular ; MR is moderate; severe pulmonary HTN -Amiodarone 200mg po daily -Pletal 100mg po bid Heme: -Acute on chronic anemia -FOBT+ -EGD showed monilial esophagitis; small hiatus hernia; erosive gastropathy; normal examined duodenum -s/p 3U PRBC transfusion -Feosol 325mg po bid -CT Abd/pelvis: no evidence of intraperitoneal hemorrhage or retroperitoneal hemorrhage -GI consulted: Dr Ag Renal: -Acute renal failure -ESBL+ in urine -Patient on primaxin 250mg ivpb q6 -Nephrology consulted: Dr Haji Endo: -DM type II -RISS short acting -Lantus 10U sc daily -Neurontin 100mg po bid GI: -FOBT+ -EGD showed monilial esophagitis; small hiatus hernia; erosive gastropathy; normal examined duodenum -Diflucan IVPB daily -s/p 3U PRBC transfusion -CT Abd/pelvis: no evidence of intraperitoneal hemorrhage or retroperitoneal hemorrhage -Patient has not had a BM in a few days -Colace 100mg po daily -Miralax 17gm once -GI recommends diagnostic paracentesis for ascites seen on CT abdomen with fluid for cell count and diff, culture and sensitivity, albumin and total protein, cytology -GI consulted: Dr Ag ID: -ESBL+ in urine -Primaxin 250mg ivpb q6 MSK: -Podiatry following DVT proph - SCDs, Heparin 5000u sc q12 GI proph - Protonix 40mg po daily allen for strict I/O's during acute illness PT/OT Chest physical therapy OOB to chair Code status - full code Case discussed with Dr. Randy Mora PGY2 <Luis Padilla S - Last Filed: 03/25/17 16:43> CCU Objective - Vital Signs / Intake & Output Vital Signs (Last 4 hours): Vital Signs Pulse Resp BP Pulse Ox 03/25/17 13:25 111 H 17 91/55 L 100 Intake and Output (Last 8hrs): Intake & Output 03/25/17 03/25/17 03/25/17 06:59 14:59 22:59 Intake Total 200 390 Output Total 300 250 Balance -100 140 Weight 184 lb Intake: Intake, IV Amount 200 150 Right PICC 150 Right PICC #2 200 Oral 0 240 Output: Urine 300 250 Urine, Voided 300 250 - Medications Active Medications: Active Medications Generic Name Dose Route Start Last Admin Trade Name Freq PRN Reason Stop Dose Admin Albuterol/Ipratropium 3 ml 03/24/17 00:00 03/25/17 16:25 Duoneb 3 Mg/0.5 Mg (3 Ml) Ud INH 3 ml RQ8 AWAIS Administration Amiodarone HCl 200 mg 03/19/17 10:00 03/25/17 09:17 Cordarone PO 200 mg DAILY AWAIS Administration Cilostazol 100 mg 03/18/17 18:00 03/25/17 09:17 Pletal PO 100 mg BID AWAIS Administration Collagenase 1 gm 03/21/17 10:00 03/25/17 09:18 Santyl TOP 1 applic DAILY AWAIS Administration Docusate Sodium 100 mg 03/25/17 10:00 03/25/17 09:17 Colace PO 100 mg DAILY AWAIS Administration Ferrous Sulfate 325 mg 03/18/17 18:00 03/25/17 09:17 Feosol PO 325 mg BID AWAIS Administration Gabapentin 100 mg 03/18/17 18:00 03/25/17 09:17 Neurontin PO 100 mg BID AWAIS Administration Guaifenesin 600 mg 03/24/17 10:00 03/25/17 09:17 Mucinex La PO 600 mg BID AWAIS Administration Heparin Sodium (Porcine) 5,000 units 03/25/17 10:00 03/25/17 12:08 Heparin SC 5,000 units Q12 AWAIS Administration Fluconazole 100 mls @ 100 mls/hr 03/22/17 10:00 03/25/17 09:34 Diflucan Iv 200 Mg/100 Ml Ns IVPB 04/04/17 10:59 100 mls/hr DAILY AWAIS Administration Imipenem/Cilastatin Sodium 250 100 mls @ 100 mls/hr 03/22/17 12:00 03/25/17 12:12 mg/ Sodium Chloride IVPB 100 mls/hr Q6H AWAIS Administration Insulin Aspart 0 unit 03/22/17 11:30 03/25/17 12:00 Novolog SC Not Given ACHS [facility] Protocol Insulin Glargine 10 unit 03/19/17 10:00 03/25/17 12:09 Lantus SC 10 u DAILY AWAIS Administration Mupirocin 0 gm 03/18/17 18:00 03/25/17 09:18 Bactroban Ointment TOP 1 applic BID AWAIS Administration Pantoprazole Sodium 40 mg 03/23/17 10:00 03/25/17 09:17 Protonix Ec Tab PO 40 mg DAILY AWAIS Administration Fluticasone/Salmeterol 1 puff 03/18/17 16:45 03/22/17 10:27 Advair Diskus 100/50 IH 1 puff RQD AWAIS Administration - Patient Studies Lab Studies: Lab Studies 03/25/17 03/25/17 03/25/17 Range/Units 15:33 11:23 10:45 WBC (4.8-10.8) K/uL RBC (4.40-5.90) Mil/uL Hgb (12.0-18.0) g/dL Hct (35.0-51.0) % MCV (80.0-94.0) fL MCH (27.0-31.0) pg MCHC (33.0-37.0) g/dL RDW (11.5-14.5) % Plt Count (130-400) K/uL MPV (7.2-11.7) fL Neut % (Auto) (50.0-75.0) % Lymph % (Auto) (20.0-40.0) % [place] % (Auto) (0.0-10.0) % Eos % (Auto) (0.0-4.0) % Baso % (Auto) (0.0-2.0) % Neut # (1.8-7.0) K/uL Lymph # (1.0-4.3) K/uL [place] # (0.0-0.8) K/uL Eos # (0.0-0.7) K/uL Baso # (0.0-0.2) K/uL PT (9.7-12.2) SECONDS INR Puncture Site Rr pCO2 37 (35-45) mm/Hg pO2 78 L (80-100) mm/Hg HCO3 24.3 (21-28) mmol/L ABG pH 7.41 (7.35-7.45) ABG Total CO2 24.6 (22-28) mmol/L ABG O2 Saturation 98.1 H (95-98) % ABG Base Excess -0.8 (-2.0-3.0) mmol/L Cipriano Test Po ABG Potassium 4.4 (3.6-5.2) mmol/L A-a O2 Difference 104.0 mm/Hg Respiratory Index 1.3 Glucose 144 H (75-110) mg/dl Lactate 1.3 (0.7-2.1) mmol/L Liter Flow 3.0 FiO2 32.0 % Sodium 140.0 (132-148) mmol/L Potassium (3.6-5.2) mmol/L Chloride 110.0 H (98-107) mmol/L Carbon Dioxide (22-30) mmol/L Anion Gap (10-20) BUN (9-20) mg/dL Creatinine (0.8-1.5) MG/DL Est GFR ( Amer) Est GFR (Non-Af Amer) POC Glucose (mg/dL) 213 H 160 H (65-110) mg/dL Random Glucose (75-110) mg/dL Calcium (8.6-10.4) mg/dl Phosphorus (2.5-4.5) mg/dL Magnesium (1.6-2.3) mg/dL Total Bilirubin (0.2-1.3) mg/dL AST (17-59) U/L ALT (21-72) U/L Alkaline Phosphatase (38-126) U/L Total Protein (6.3-8.3) g/dL Albumin (3.5-5.0) g/dL Albumin (PEP) (3.8-4.8) g/dL Globulin (2.2-3.9) gm/dL Albumin/Globulin Ratio (1.0-2.1) Aiuap-8-Ijbyvnuvj (0.2-0.3) g/dL Zsyij-9-Uwakhgrms (0.5-0.9) g/dL Bkhr-0-Vetdsarw (0.4-0.6) g/dL Zaah-3-Azczfrct (0.2-0.5) g/dL Gamma Globulins (0.8-1.7) g/dL Abnorm Protein Band 1 Abnorm Protein Band 2 Abnorm Protein Band 3 Arterial Blood Potassium 4.4 (3.6-5.2) mmol/L ELDA & SPEP Interp Hep Bs Antigen (NEGATIVE) Hep Bs Antibody (NEGATIVE) Hep B Core IgM Ab (NEGATIVE) Hepatitis C Antibody (NEGATIVE) 03/25/17 03/25/17 03/25/17 Range/Units 07:23 06:16 06:16 WBC (4.8-10.8) K/uL RBC (4.40-5.90) Mil/uL Hgb (12.0-18.0) g/dL Hct (35.0-51.0) % MCV (80.0-94.0) fL MCH (27.0-31.0) pg MCHC (33.0-37.0) g/dL RDW (11.5-14.5) % Plt Count (130-400) K/uL MPV (7.2-11.7) fL Neut % (Auto) (50.0-75.0) % Lymph % (Auto) (20.0-40.0) % [place] % (Auto) (0.0-10.0) % Eos % (Auto) (0.0-4.0) % Baso % (Auto) (0.0-2.0) % Neut # (1.8-7.0) K/uL Lymph # (1.0-4.3) K/uL [place] # (0.0-0.8) K/uL Eos # (0.0-0.7) K/uL Baso # (0.0-0.2) K/uL PT (9.7-12.2) SECONDS INR Puncture Site pCO2 (35-45) mm/Hg pO2 (80-100) mm/Hg HCO3 (21-28) mmol/L ABG pH (7.35-7.45) ABG Total CO2 (22-28) mmol/L ABG O2 Saturation (95-98) % ABG Base Excess (-2.0-3.0) mmol/L Cipriano Test ABG Potassium (3.6-5.2) mmol/L A-a O2 Difference mm/Hg Respiratory Index Glucose (75-110) mg/dl Lactate (0.7-2.1) mmol/L Liter Flow FiO2 % Sodium (132-148) mmol/L Potassium (3.6-5.2) mmol/L Chloride (98-107) mmol/L Carbon Dioxide (22-30) mmol/L Anion Gap (10-20) BUN (9-20) mg/dL Creatinine (0.8-1.5) MG/DL Est GFR ( Amer) Est GFR (Non-Af Amer) POC Glucose (mg/dL) 90 (65-110) mg/dL Random Glucose (75-110) mg/dL Calcium (8.6-10.4) mg/dl Phosphorus (2.5-4.5) mg/dL Magnesium (1.6-2.3) mg/dL Total Bilirubin (0.2-1.3) mg/dL AST (17-59) U/L ALT (21-72) U/L Alkaline Phosphatase (38-126) U/L Total Protein (6.3-8.3) g/dL Albumin (3.5-5.0) g/dL Albumin (PEP) (3.8-4.8) g/dL Globulin (2.2-3.9) gm/dL Albumin/Globulin Ratio (1.0-2.1) Ijcyf-4-Uwkhmnyxc (0.2-0.3) g/dL Lectx-9-Zdeucijkq (0.5-0.9) g/dL Cvnn-9-Ggwfhxlb (0.4-0.6) g/dL Lqum-1-Pozqruxg (0.2-0.5) g/dL Gamma Globulins (0.8-1.7) g/dL Abnorm Protein Band 1 Abnorm Protein Band 2 Abnorm Protein Band 3 Arterial Blood Potassium (3.6-5.2) mmol/L ELDA & SPEP Interp Hep Bs Antigen (NEGATIVE) Hep Bs Antibody Negative (NEGATIVE) Hep B Core IgM Ab Negative (NEGATIVE) Hepatitis C Antibody Negative (NEGATIVE) 03/25/17 03/25/17 03/25/17 Range/Units 06:16 06:16 06:16 WBC 7.9 (4.8-10.8) K/uL RBC 3.12 L (4.40-5.90) Mil/uL Hgb 8.4 L (12.0-18.0) g/dL Hct 26.4 L (35.0-51.0) % MCV 84.6 (80.0-94.0) fL MCH 27.0 (27.0-31.0) pg MCHC 31.9 L (33.0-37.0) g/dL RDW 17.7 H (11.5-14.5) % Plt Count 277 (130-400) K/uL MPV 8.2 (7.2-11.7) fL Neut % (Auto) 77.3 H (50.0-75.0) % Lymph % (Auto) 10.1 L (20.0-40.0) % [place] % (Auto) 6.8 (0.0-10.0) % Eos % (Auto) 5.2 H (0.0-4.0) % Baso % (Auto) 0.6 (0.0-2.0) % Neut # 6.1 (1.8-7.0) K/uL Lymph # 0.8 L (1.0-4.3) K/uL [place] # 0.5 (0.0-0.8) K/uL Eos # 0.4 (0.0-0.7) K/uL Baso # 0.0 (0.0-0.2) K/uL PT 15.8 H (9.7-12.2) SECONDS INR 1.4 Puncture Site pCO2 (35-45) mm/Hg pO2 (80-100) mm/Hg HCO3 (21-28) mmol/L ABG pH (7.35-7.45) ABG Total CO2 (22-28) mmol/L ABG O2 Saturation (95-98) % ABG Base Excess (-2.0-3.0) mmol/L Cipriano Test ABG Potassium (3.6-5.2) mmol/L A-a O2 Difference mm/Hg Respiratory Index Glucose (75-110) mg/dl Lactate (0.7-2.1) mmol/L Liter Flow FiO2 % Sodium 138 (132-148) mmol/L Potassium 4.6 (3.6-5.2) mmol/L Chloride 103 (98-107) mmol/L Carbon Dioxide 27 (22-30) mmol/L Anion Gap 13 (10-20) BUN 44 H (9-20) mg/dL Creatinine 1.4 (0.8-1.5) MG/DL Est GFR ( Amer) > 60 Est GFR (Non-Af Amer) 50 POC Glucose (mg/dL) (65-110) mg/dL Random Glucose 82 (75-110) mg/dL Calcium 8.5 L (8.6-10.4) mg/dl Phosphorus 3.0 (2.5-4.5) mg/dL Magnesium 1.9 (1.6-2.3) mg/dL Total Bilirubin 1.1 (0.2-1.3) mg/dL AST 19 (17-59) U/L ALT 11 L D (21-72) U/L Alkaline Phosphatase 83 (38-126) U/L Total Protein 6.7 (6.3-8.3) g/dL Albumin 2.8 L (3.5-5.0) g/dL Albumin (PEP) (3.8-4.8) g/dL Globulin 3.9 (2.2-3.9) gm/dL Albumin/Globulin Ratio 0.7 L (1.0-2.1) Rvogr-5-Nsvnqduvx (0.2-0.3) g/dL Ndpnj-7-Uqffrwend (0.5-0.9) g/dL Vzbu-0-Emueuvzr (0.4-0.6) g/dL Kusi-0-Evpnjefc (0.2-0.5) g/dL Gamma Globulins (0.8-1.7) g/dL Abnorm Protein Band 1 Abnorm Protein Band 2 Abnorm Protein Band 3 Arterial Blood Potassium (3.6-5.2) mmol/L ELDA & SPEP Interp Hep Bs Antigen Negative (NEGATIVE) Hep Bs Antibody (NEGATIVE) Hep B Core IgM Ab (NEGATIVE) Hepatitis C Antibody (NEGATIVE) 03/24/17 03/19/17 Range/Units 21:16 17:38 WBC (4.8-10.8) K/uL RBC (4.40-5.90) Mil/uL Hgb (12.0-18.0) g/dL Hct (35.0-51.0) % MCV (80.0-94.0) fL MCH (27.0-31.0) pg MCHC (33.0-37.0) g/dL RDW (11.5-14.5) % Plt Count (130-400) K/uL MPV (7.2-11.7) fL Neut % (Auto) (50.0-75.0) % Lymph % (Auto) (20.0-40.0) % [place] % (Auto) (0.0-10.0) % Eos % (Auto) (0.0-4.0) % Baso % (Auto) (0.0-2.0) % Neut # (1.8-7.0) K/uL Lymph # (1.0-4.3) K/uL [place] # (0.0-0.8) K/uL Eos # (0.0-0.7) K/uL Baso # (0.0-0.2) K/uL PT (9.7-12.2) SECONDS INR Puncture Site pCO2 (35-45) mm/Hg pO2 (80-100) mm/Hg HCO3 (21-28) mmol/L ABG pH (7.35-7.45) ABG Total CO2 (22-28) mmol/L ABG O2 Saturation (95-98) % ABG Base Excess (-2.0-3.0) mmol/L Cipriano Test ABG Potassium (3.6-5.2) mmol/L A-a O2 Difference mm/Hg Respiratory Index Glucose (75-110) mg/dl Lactate (0.7-2.1) mmol/L Liter Flow FiO2 % Sodium (132-148) mmol/L Potassium (3.6-5.2) mmol/L Chloride (98-107) mmol/L Carbon Dioxide (22-30) mmol/L Anion Gap (10-20) BUN (9-20) mg/dL Creatinine (0.8-1.5) MG/DL Est GFR ( Amer) Est GFR (Non-Af Amer) POC Glucose (mg/dL) 99 (65-110) mg/dL Random Glucose (75-110) mg/dL Calcium (8.6-10.4) mg/dl Phosphorus (2.5-4.5) mg/dL Magnesium (1.6-2.3) mg/dL Total Bilirubin (0.2-1.3) mg/dL AST (17-59) U/L ALT (21-72) U/L Alkaline Phosphatase (38-126) U/L Total Protein (6.3-8.3) g/dL Albumin (3.5-5.0) g/dL Albumin (PEP) 2.9 L (3.8-4.8) g/dL Globulin (2.2-3.9) gm/dL Albumin/Globulin Ratio (1.0-2.1) Tagil-8-Uessjuevw 0.4 H (0.2-0.3) g/dL Wjgdi-9-Pzpwmnetz 0.7 (0.5-0.9) g/dL Fgee-5-Xmaedhct 0.4 (0.4-0.6) g/dL Jxcb-0-Ydbxifjr 0.4 (0.2-0.5) g/dL Gamma Globulins 1.8 H (0.8-1.7) g/dL Abnorm Protein Band 1 TEST NOT PERFORMED Abnorm Protein Band 2 TEST NOT PERFORMED Abnorm Protein Band 3 TEST NOT PERFORMED Arterial Blood Potassium (3.6-5.2) mmol/L ELDA & SPEP Interp See note Hep Bs Antigen (NEGATIVE) Hep Bs Antibody (NEGATIVE) Hep B Core IgM Ab (NEGATIVE) Hepatitis C Antibody (NEGATIVE) Laboratory Results - last 24 hr 03/19/17 03/24/17 03/25/17 17:38 21:16 06:16 WBC 7.9 RBC 3.12 L Hgb 8.4 L Hct 26.4 L MCV 84.6 MCH 27.0 MCHC 31.9 L RDW 17.7 H Plt Count 277 MPV 8.2 Neut % (Auto) 77.3 H Lymph % (Auto) 10.1 L [place] % (Auto) 6.8 Eos % (Auto) 5.2 H Baso % (Auto) 0.6 Neut # 6.1 Lymph # 0.8 L [place] # 0.5 Eos # 0.4 Baso # 0.0 PT INR Puncture Site pCO2 pO2 HCO3 ABG pH ABG Total CO2 ABG O2 Saturation ABG Base Excess Cipriano Test ABG Potassium A-a O2 Difference Respiratory Index Glucose Lactate Liter Flow FiO2 Sodium Potassium Chloride Carbon Dioxide Anion Gap BUN Creatinine Est GFR ( Amer) Est GFR (Non-Af Amer) POC Glucose (mg/dL) 99 Random Glucose Calcium Phosphorus Magnesium Total Bilirubin AST ALT Alkaline Phosphatase Total Protein Albumin Albumin (PEP) 2.9 L Globulin Albumin/Globulin Ratio Gzdue-5-Xnczumeza 0.4 H Rpfvf-7-Qcoebibxf 0.7 Vfgr-9-Ausvnagb 0.4 Cbbj-2-Bjvbajmk 0.4 Gamma Globulins 1.8 H Abnorm Protein Band 1 TEST NOT PERFORMED Abnorm Protein Band 2 TEST NOT PERFORMED Abnorm Protein Band 3 TEST NOT PERFORMED Arterial Blood Potassium ELDA & SPEP Interp See note Hep Bs Antigen Hep Bs Antibody Hep B Core IgM Ab Hepatitis C Antibody 03/25/17 03/25/17 03/25/17 06:16 06:16 06:16 WBC RBC Hgb Hct MCV MCH MCHC RDW Plt Count MPV Neut % (Auto) Lymph % (Auto) [place] % (Auto) Eos % (Auto) Baso % (Auto) Neut # Lymph # [place] # Eos # Baso # PT 15.8 H INR 1.4 Puncture Site pCO2 pO2 HCO3 ABG pH ABG Total CO2 ABG O2 Saturation ABG Base Excess Cipriano Test ABG Potassium A-a O2 Difference Respiratory Index Glucose Lactate Liter Flow FiO2 Sodium 138 Potassium 4.6 Chloride 103 Carbon Dioxide 27 Anion Gap 13 BUN 44 H Creatinine 1.4 Est GFR ( Amer) > 60 Est GFR (Non-Af Amer) 50 POC Glucose (mg/dL) Random Glucose 82 Calcium 8.5 L Phosphorus 3.0 Magnesium 1.9 Total Bilirubin 1.1 AST 19 ALT 11 L D Alkaline Phosphatase 83 Total Protein 6.7 Albumin 2.8 L Albumin (PEP) Globulin 3.9 Albumin/Globulin Ratio 0.7 L Rbjmc-8-Gsutgmjoj Nysrs-5-Tchxblrwr Mkxj-4-Tjgockdz Tguy-3-Tgntwewq Gamma Globulins Abnorm Protein Band 1 Abnorm Protein Band 2 Abnorm Protein Band 3 Arterial Blood Potassium ELDA & SPEP Interp Hep Bs Antigen Negative Hep Bs Antibody Hep B Core IgM Ab Negative Hepatitis C Antibody Negative 03/25/17 03/25/17 03/25/17 06:16 07:23 10:45 WBC RBC Hgb Hct MCV MCH MCHC RDW Plt Count MPV Neut % (Auto) Lymph % (Auto) [place] % (Auto) Eos % (Auto) Baso % (Auto) Neut # Lymph # [place] # Eos # Baso # PT INR Puncture Site Rr pCO2 37 pO2 78 L HCO3 24.3 ABG pH 7.41 ABG Total CO2 24.6 ABG O2 Saturation 98.1 H ABG Base Excess -0.8 Cipriano Test Po ABG Potassium 4.4 A-a O2 Difference 104.0 Respiratory Index 1.3 Glucose 144 H Lactate 1.3 Liter Flow 3.0 FiO2 32.0 Sodium 140.0 Potassium Chloride 110.0 H Carbon Dioxide Anion Gap BUN Creatinine Est GFR ( Amer) Est GFR (Non-Af Amer) POC Glucose (mg/dL) 90 Random Glucose Calcium Phosphorus Magnesium Total Bilirubin AST ALT Alkaline Phosphatase Total Protein Albumin Albumin (PEP) Globulin Albumin/Globulin Ratio Rklin-7-Twjgxwadr Sxpaa-3-Qqqkjlkxr Wxyf-8-Doujcubj Hxaa-6-Ggrdragk Gamma Globulins Abnorm Protein Band 1 Abnorm Protein Band 2 Abnorm Protein Band 3 Arterial Blood Potassium 4.4 ELDA & SPEP Interp Hep Bs Antigen Hep Bs Antibody Negative Hep B Core IgM Ab Hepatitis C Antibody 03/25/17 03/25/17 11:23 15:33 WBC RBC Hgb Hct MCV MCH MCHC RDW Plt Count MPV Neut % (Auto) Lymph % (Auto) [place] % (Auto) Eos % (Auto) Baso % (Auto) Neut # Lymph # [place] # Eos # Baso # PT INR Puncture Site pCO2 pO2 HCO3 ABG pH ABG Total CO2 ABG O2 Saturation ABG Base Excess Cipriano Test ABG Potassium A-a O2 Difference Respiratory Index Glucose Lactate Liter Flow FiO2 Sodium Potassium Chloride Carbon Dioxide Anion Gap BUN Creatinine Est GFR ( Amer) Est GFR (Non-Af Amer) POC Glucose (mg/dL) 160 H 213 H Random Glucose Calcium Phosphorus Magnesium Total Bilirubin AST ALT Alkaline Phosphatase Total Protein Albumin Albumin (PEP) Globulin Albumin/Globulin Ratio Witkn-2-Wrxqglbdu Chuqh-7-Kkwqtiumb Vtpi-3-Qrzotjqj Jbzk-7-Mrosvdtv Gamma Globulins Abnorm Protein Band 1 Abnorm Protein Band 2 Abnorm Protein Band 3 Arterial Blood Potassium ELDA & SPEP Interp Hep Bs Antigen Hep Bs Antibody Hep B Core IgM Ab Hepatitis C Antibody Critical Care Progress Note - Nutrition Nutrition: Nutrition Category Date Time Status Heart Healthy Diet [DIET] Diets 03/21/17 Dinner Active Assessment/Plan (1) Acute exacerbation of CHF (congestive heart failure) Current Visit: Yes Status: Acute (2) A-fib Current Visit: No Status: Acute (3) GI bleed Current Visit: No Status: Acute Attending/Attestation - Attestation I have personally seen and examined this patient.: Yes I have fully participated in the care of the patient.: Yes I have reviewed all pertinent clinical information: Yes Notes (Text): 03/25/17 16:42 patient seen and examined in the intensive care unit. Case discussed with house staff in the morning rounds. Assessment and plan as per resident note Continue treatment for ESBL Complaining of productive cough
[2017-03-25] MEDS: Cilostazol 100 mg Tab UD PO SCH ×2 (09:17→18:17)
[2017-03-25] MEDS: guaiFENesin 600 mg ER Tab PO SCH ×2 (09:17→18:17)
[2017-03-25] MEDS: Pantoprazole 40 mg EC Tab PO SCH (09:17)
[2017-03-25] MEDS: Collagenase 250 Units/gm Ointment(30 gm) TOP SCH ×2 (09:18→19:19)
[2017-03-25] MEDS: Fluconazole IV 200mg/100 ml NS 100 ML IVPB SCH (09:34)
[2017-03-25 10:32] LABS: ALBUMIN (PEP) 2.9 g/dL (3.8-4.8); ALPHA-1-GLOBULIN (PEP) 0.4 g/dL (0.2-0.3)
[2017-03-25 10:48] LABS: ABG ALLEN TEST PO; ARTERIAL BLOOD GAS HCO3 24.3 mmol/L (21-28); ARTERIAL BLOOD GAS O2 SAT 98.1 % (95-98); ARTERIAL BLOOD GAS PCO2 37 mm/Hg (35-45); ARTERIAL BLOOD GAS PH 7.41 (7.35-7.45); ARTERIAL BLOOD GAS PO2 78 mm/Hg (80-100); ARTERIAL BLOOD GAS TCO2 24.6 mmol/L (22-28)
[2017-03-25] MEDS: (Lantus) Insulin Glargine, Recombinant SC SCH (12:09)
--- NOTE | 2017-03-25 12:28 | CP.PCM.PN ---
Subjective - Date & Time of Evaluation Date of Evaluation: 03/25/17 Time of Evaluation: 12:27 - Subjective Subjective: seen and examine improved leg swelling. echo noted, low ef bp stable c/o cough, dry , unable to bring out phlegm Objective - Vital Signs/Intake and Output Vital Signs (last 24 hours): Temp Pulse Resp BP Pulse Ox 98.4 F 107 H 14 97/53 L 100 03/25/17 08:00 03/25/17 08:00 03/25/17 08:00 03/25/17 08:00 03/25/17 08:00 Intake and Output: 03/25/17 03/25/17 06:59 18:59 Intake Total 250 0 Output Total 300 250 Balance -50 -250 - Medications Medications: Current Medications Albuterol/Ipratropium (Duoneb 3 Mg/0.5 Mg (3 Ml) Ud) 3 ml INH RQ8 [facility] Last Admin: 03/25/17 08:03 Dose: 3 ml Amiodarone HCl (Cordarone) 200 mg PO DAILY [facility] Last Admin: 03/25/17 09:17 Dose: 200 mg Cilostazol (Pletal) 100 mg PO BID [facility] Last Admin: 03/25/17 09:17 Dose: 100 mg Collagenase (Santyl) 1 gm TOP DAILY [facility] Last Admin: 03/25/17 09:18 Dose: 1 applic Docusate Sodium (Colace) 100 mg PO DAILY [facility] Last Admin: 03/25/17 09:17 Dose: 100 mg Ferrous Sulfate (Feosol) 325 mg PO BID [facility] Last Admin: 03/25/17 09:17 Dose: 325 mg Gabapentin (Neurontin) 100 mg PO BID [facility] Last Admin: 03/25/17 09:17 Dose: 100 mg Guaifenesin (Mucinex La) 600 mg PO BID [facility] Last Admin: 03/25/17 09:17 Dose: 600 mg Heparin Sodium (Porcine) (Heparin) 5,000 units SC Q12 [facility] Last Admin: 03/25/17 12:08 Dose: 5,000 units Fluconazole (Diflucan Iv 200 Mg/100 Ml Ns) 100 mls @ 100 mls/hr IVPB DAILY [facility] Stop: 04/04/17 10:59 Last Admin: 03/25/17 09:34 Dose: 100 mls/hr Imipenem/Cilastatin Sodium 250 (mg/ Sodium Chloride) 100 mls @ 100 mls/hr IVPB Q6H [facility] Last Admin: 03/25/17 12:12 Dose: 100 mls/hr Insulin Aspart (Novolog) 0 unit SC ACHS [facility] PRN Reason: Protocol Last Admin: 03/25/17 08:00 Dose: Not Given Insulin Glargine (Lantus) 10 unit SC DAILY [facility] Last Admin: 03/25/17 12:09 Dose: 10 u Mupirocin (Bactroban Ointment) 0 gm TOP BID [facility] Last Admin: 03/25/17 09:18 Dose: 1 applic Pantoprazole Sodium (Protonix Ec Tab) 40 mg PO DAILY [facility] Last Admin: 03/25/17 09:17 Dose: 40 mg Fluticasone/Salmeterol (Advair Diskus 100/50) 1 puff IH RQD [facility] Last Admin: 03/22/17 10:27 Dose: 1 puff - Labs Labs: 03/25/17 06:16 03/25/17 06:16 PT 15.8 SECONDS (9.7-12.2) H 03/25/17 06:16 INR 1.4 03/25/17 06:16 APTT 33 SECONDS (21-34) 03/18/17 17:38 - Constitutional Appears: Non-toxic, No Acute Distress (up in chair) - Head Exam Head Exam: NORMAL INSPECTION - Eye Exam Eye Exam: Normal appearance - ENT Exam ENT Exam: Mucous Membranes Moist, Normal Exam - Neck Exam Neck Exam: Normal Inspection - Respiratory Exam Respiratory Exam: Decreased Breath Sounds, NORMAL BREATHING PATTERN - Cardiovascular Exam Cardiovascular Exam: Tachycardia, REGULAR RHYTHM - GI/Abdominal Exam GI & Abdominal Exam: Distended, Soft - Extremities Exam Extremities Exam: Normal Inspection, Pedal Edema (2+) Assessment and Plan (1) LETICIA (acute kidney injury) Status: Acute (2) Acute exacerbation of CHF (congestive heart failure) Status: Acute (3) Shortness of breath Status: Acute (4) CHF (congestive heart failure) Status: Chronic (5) A-fib Status: Acute (6) GI bleed Status: Acute (7) HTN (hypertension) Status: Acute - Assessment and Plan (Free Text) Assessment: resolved leticia lasix once bp improved cardiac work up and management, ?milrinone gtt w/ lasix
--- NOTE | 2017-03-25 17:22 | CP.PCM.PN ---
Subjective - Date & Time of Evaluation Date of Evaluation: 03/25/17 Time of Evaluation: 17:29 - Subjective Subjective: no new complaints old complaint cough no cp no sob Objective - Vital Signs/Intake and Output Vital Signs (last 24 hours): Temp Pulse Resp BP Pulse Ox 98.2 F 111 H 17 91/55 L 100 03/25/17 12:00 03/25/17 13:25 03/25/17 13:25 03/25/17 13:25 03/25/17 13:25 Intake and Output: 03/25/17 03/25/17 06:59 18:59 Intake Total 250 390 Output Total 300 250 Balance -50 140 - Medications Medications: Current Medications Albuterol/Ipratropium (Duoneb 3 Mg/0.5 Mg (3 Ml) Ud) 3 ml INH RQ8 [facility] Last Admin: 03/25/17 16:25 Dose: 3 ml Amiodarone HCl (Cordarone) 200 mg PO DAILY [facility] Last Admin: 03/25/17 09:17 Dose: 200 mg Cilostazol (Pletal) 100 mg PO BID [facility] Last Admin: 03/25/17 09:17 Dose: 100 mg Collagenase (Santyl) 1 gm TOP DAILY [facility] Last Admin: 03/25/17 09:18 Dose: 1 applic Docusate Sodium (Colace) 100 mg PO DAILY [facility] Last Admin: 03/25/17 09:17 Dose: 100 mg Ferrous Sulfate (Feosol) 325 mg PO BID [facility] Last Admin: 03/25/17 09:17 Dose: 325 mg Gabapentin (Neurontin) 100 mg PO BID [facility] Last Admin: 03/25/17 09:17 Dose: 100 mg Guaifenesin (Mucinex La) 600 mg PO BID [facility] Last Admin: 03/25/17 09:17 Dose: 600 mg Heparin Sodium (Porcine) (Heparin) 5,000 units SC Q12 [facility] Last Admin: 03/25/17 12:08 Dose: 5,000 units Fluconazole (Diflucan Iv 200 Mg/100 Ml Ns) 100 mls @ 100 mls/hr IVPB DAILY [facility] Stop: 04/04/17 10:59 Last Admin: 03/25/17 09:34 Dose: 100 mls/hr Imipenem/Cilastatin Sodium 250 (mg/ Sodium Chloride) 100 mls @ 100 mls/hr IVPB Q6H [facility] Last Admin: 03/25/17 12:12 Dose: 100 mls/hr Insulin Aspart (Novolog) 0 unit SC ACHS [facility] PRN Reason: Protocol Last Admin: 03/25/17 17:17 Dose: 3 unit Insulin Glargine (Lantus) 10 unit SC DAILY [facility] Last Admin: 03/25/17 12:09 Dose: 10 u Mupirocin (Bactroban Ointment) 0 gm TOP BID [facility] Last Admin: 03/25/17 09:18 Dose: 1 applic Pantoprazole Sodium (Protonix Ec Tab) 40 mg PO DAILY [facility] Last Admin: 03/25/17 09:17 Dose: 40 mg Fluticasone/Salmeterol (Advair Diskus 100/50) 1 puff IH RQD [facility] Last Admin: 03/22/17 10:27 Dose: 1 puff - Labs Labs: 03/25/17 06:16 03/25/17 06:16 PT 15.8 SECONDS (9.7-12.2) H 03/25/17 06:16 INR 1.4 03/25/17 06:16 APTT 33 SECONDS (21-34) 03/18/17 17:38 - Constitutional Appears: Well, Non-toxic, No Acute Distress - Head Exam Head Exam: ATRAUMATIC - ENT Exam ENT Exam: Mucous Membranes Dry - Respiratory Exam Respiratory Exam: Rhonchi, NORMAL BREATHING PATTERN. absent: Accessory Muscle Use, Clear to Ausculation Bilateral, Respiratory Distress - Cardiovascular Exam Cardiovascular Exam: +S1, +S2. absent: Murmur - GI/Abdominal Exam GI & Abdominal Exam: Soft, Normal Bowel Sounds. absent: Tenderness, Organomegaly - Neurological Exam Neurological Exam: Alert, Awake, Oriented x3 Assessment and Plan - Assessment and Plan (Free Text) Assessment: 71 M PMHx of CAD, CABG, AFib, DM w/ b/l toe amp, PVD, HTN, chronic anemia admitted for acute on chronic anemia, guiaic positive and hypotension Plan: Neuro: -No acute issues -Alert and oriented 3 Pulm: Complains of cough. -CXR 03/24: moderate to severe venous congestion with bibasilar airspace opacities and small b/l pleural effusions. R peritracheal airspace opacity may represent prominent vasculature -Mucinex 600mg po bid -Breathing spontaneously on 2 L nasal cannula. -Duoneb 3ml inh q6 -Advair 100/50 1 puff inh qdaily -Chest PT -OOB to chair CV: -Relatively hypotensive for her normally hypertensive patient. -Tachycardic -Chronic systolic congestive heart failure (EF 30-35%, last echo 11/22/2016). -repeat Echo: LV systolic function is severely impaired; EF 25-30%; septal motion consistent with postop state; global hypokinesis of LV; transmitral Doppler flow pattern is GRad II pseudonormal filling dynamics; severe valvular ; MR is moderate; severe pulmonary HTN -Amiodarone 200mg po daily -Pletal 100mg po bid Heme: -Acute on chronic anemia -FOBT+ -EGD showed monilial esophagitis; small hiatus hernia; erosive gastropathy; normal examined duodenum -s/p 3U PRBC transfusion -Feosol 325mg po bid -CT Abd/pelvis: no evidence of intraperitoneal hemorrhage or retroperitoneal hemorrhage -GI consulted: Dr Ag Renal: -Acute renal failure now resolved -ESBL+ in urine -Patient on primaxin 250mg ivpb q6 -Nephrology consulted: Dr Haji Endo: -DM type II -RISS short acting -Lantus 10U sc daily -Neurontin 100mg po bid GI: Bleed - ANEMIA due to blood loss -FOBT+ -EGD showed monilial esophagitis; small hiatus hernia; erosive gastropathy; normal examined duodenum -Diflucan IVPB daily -s/p 3U PRBC transfusion -CT Abd/pelvis: no evidence of intraperitoneal hemorrhage or retroperitoneal hemorrhage -Patient has not had a BM in a few days -Colace 100mg po daily -Miralax 17gm once -GI recommends diagnostic paracentesis for ascites seen on CT abdomen with fluid for cell count and diff, culture and sensitivity, albumin and total protein, cytology -GI consulted: Dr Ag ID: [id number] with ESBL -ESBL+ in urine -Primaxin 250mg ivpb q6 MSK: -Podiatry following DVT proph - SCDs, Heparin 5000u sc q12 GI proph - Protonix 40mg po daily allen for strict I/O's during acute illness PT/OT Chest physical therapy OOB to chair Code status - full code
--- NOTE | 2017-03-25 19:14 | CP.PCM.PN ---
Subjective - Date & Time of Evaluation Date of Evaluation: 03/25/17 Time of Evaluation: 12:00 - Subjective Subjective: Patient seen in ICU. sitting in the chair. Objective - Vital Signs/Intake and Output Vital Signs (last 24 hours): Temp Pulse Resp BP Pulse Ox 98.2 F 105 H 20 105/72 89 L 03/25/17 12:00 03/25/17 18:24 03/25/17 18:24 03/25/17 18:24 03/25/17 18:24 Intake and Output: 03/25/17 03/26/17 18:59 06:59 Intake Total 610 Output Total 375 Balance 235 - Medications Medications: Current Medications Albuterol/Ipratropium (Duoneb 3 Mg/0.5 Mg (3 Ml) Ud) 3 ml INH RQ8 [facility] Last Admin: 03/25/17 16:25 Dose: 3 ml Amiodarone HCl (Cordarone) 200 mg PO DAILY [facility] Last Admin: 03/25/17 09:17 Dose: 200 mg Cilostazol (Pletal) 100 mg PO BID [facility] Last Admin: 03/25/17 18:17 Dose: 100 mg Collagenase (Santyl) 1 gm TOP DAILY [facility] Last Admin: 03/25/17 09:18 Dose: 1 applic Docusate Sodium (Colace) 100 mg PO DAILY [facility] Last Admin: 03/25/17 09:17 Dose: 100 mg Ferrous Sulfate (Feosol) 325 mg PO BID [facility] Last Admin: 03/25/17 18:17 Dose: 325 mg Gabapentin (Neurontin) 100 mg PO BID [facility] Last Admin: 03/25/17 18:17 Dose: 100 mg Guaifenesin (Mucinex La) 600 mg PO BID [facility] Last Admin: 03/25/17 18:17 Dose: 600 mg Heparin Sodium (Porcine) (Heparin) 5,000 units SC Q12 [facility] Last Admin: 03/25/17 12:08 Dose: 5,000 units Fluconazole (Diflucan Iv 200 Mg/100 Ml Ns) 100 mls @ 100 mls/hr IVPB DAILY [facility] Stop: 04/04/17 10:59 Last Admin: 03/25/17 09:34 Dose: 100 mls/hr Imipenem/Cilastatin Sodium 250 (mg/ Sodium Chloride) 100 mls @ 100 mls/hr IVPB Q6H [facility] Last Admin: 03/25/17 18:17 Dose: 100 mls/hr Insulin Aspart (Novolog) 0 unit SC ACHS [facility] PRN Reason: Protocol Last Admin: 03/25/17 17:17 Dose: 3 unit Insulin Glargine (Lantus) 10 unit SC DAILY [facility] Last Admin: 03/25/17 12:09 Dose: 10 u Mupirocin (Bactroban Ointment) 0 gm TOP BID [facility] Last Admin: 03/25/17 09:18 Dose: 1 applic Pantoprazole Sodium (Protonix Ec Tab) 40 mg PO DAILY [facility] Last Admin: 03/25/17 09:17 Dose: 40 mg Fluticasone/Salmeterol (Advair Diskus 100/50) 1 puff IH RQD [facility] Last Admin: 03/22/17 10:27 Dose: 1 puff - Labs Labs: 03/25/17 06:16 03/25/17 06:16 PT 15.8 SECONDS (9.7-12.2) H 03/25/17 06:16 INR 1.4 03/25/17 06:16 APTT 33 SECONDS (21-34) 03/18/17 17:38 - Constitutional Appears: Chronically Ill - Head Exam Head Exam: NORMAL INSPECTION - Eye Exam Eye Exam: Normal appearance - ENT Exam ENT Exam: Mucous Membranes Moist - Neck Exam Neck Exam: Full ROM - Respiratory Exam Respiratory Exam: Decreased Breath Sounds - Cardiovascular Exam Cardiovascular Exam: REGULAR RHYTHM - GI/Abdominal Exam GI & Abdominal Exam: Normal Bowel Sounds - Rectal Exam Rectal Exam: Deferred - Extremities Exam Extremities Exam: Pedal Edema - Back Exam Back Exam: NORMAL INSPECTION - Neurological Exam Neurological Exam: Alert - Psychiatric Exam Psychiatric exam: Normal Affect - Skin Skin Exam: Normal Color Assessment and Plan (1) Acute exacerbation of CHF (congestive heart failure) Assessment & Plan: improving. Status: Acute (2) Anemia Assessment & Plan: hgb stable Status: Acute (3) A-fib Assessment & Plan: will rate control Status: Acute (4) Aortic stenosis Assessment & Plan: not in candidate Status: Acute
[2017-03-26] MEDS: Albuterol-Ipratrop 3 mg / 0.5 (3 ml) UD INH SCH ×3 (00:01→16:24)
[2017-03-26] MEDS: Imipenem/Cilastatin 250 MG in Sodium Chloride 100 ML IVPB SCH ×4 (05:33→23:45)
[2017-03-26 06:19] LABS: BASO # 0.1 K/uL (0.0-0.2); BASO % 0.8 % (0.0-2.0); EOS # 0.4 K/uL (0.0-0.7); HEMOGLOBIN 8.2 g/dL (12.0-18.0); LYMPH # 0.8 K/uL (1.0-4.3); LYMPH % 11.6 % (20.0-40.0); MEAN CELL VOLUME 84.8 fL (80.0-94.0); MEAN CORPUSCULAR HEMOGLOBIN 26.9 pg (27.0-31.0); MEAN CORPUSCULAR HGB CONC 31.8 g/dL (33.0-37.0); MEAN PLATELET VOLUME 8.5 fL (7.2-11.7); MONO # 0.5 K/uL (0.0-0.8); MONO % 6.9 % (0.0-10.0); NEUT # 5.3 K/uL (1.8-7.0); NEUT % 75.7 % (50.0-75.0); RBC 3.05 Mil/uL (4.40-5.90); RED CELL DISTRIBUTION WIDTH 17.9 % (11.5-14.5)
[2017-03-26 06:31] LABS: ALBUMIN 2.8 g/dL (3.5-5.0)
[2017-03-26 06:34] LABS: ALB/GLOB RATIO 0.8 (1.0-2.1); ALT/SGPT 11 U/L (21-72); AST/SGOT 18 U/L (17-59); BLOOD UREA NITROGEN 49 mg/dL (9-20); GFR AFRICAN-AMERICAN > 60; GFR NON-AFRICAN AMERICAN 50
[2017-03-26 06:35] LABS: CALCIUM 8.5 mg/dl (8.6-10.4)
--- NOTE | 2017-03-26 07:41 | CP.CCUPN ---
<Beth Mora - Last Filed: 03/26/17 10:53> CCU Subjective - Physician Review Subjective (Free Text): 03/26/17 10:53 Patient seen and examined at bedside. No acute overnight events as per nursing. Patient still complains of cough. Patient stable for transfer to TELE CCU Objective - Vital Signs / Intake & Output Vital Signs (Last 4 hours): Vital Signs Temp Pulse Resp BP Pulse Ox 03/26/17 04:25 101 H 15 93/61 L 86 L 03/26/17 04:00 98 F 100 H 14 94 L Intake and Output (Last 8hrs): Intake & Output 03/25/17 03/26/17 03/26/17 22:59 06:59 14:59 Intake Total 275 100 Output Total 125 350 Balance 150 -250 Intake: Intake, IV Amount 105 100 Right PICC #2 105 100 Oral 170 0 Output: Urine 125 350 Urine, Voided 125 350 - Physical Exam Head: Positive for: Atraumatic, Normocephalic Pupils: Positive for: PERRL Extroacular Muscles: Positive for: EOMI Conjunctiva: Positive for: Normal. Negative for: Injected, Icteric Mouth: Positive for: Moist Mucous Membranes Nose (External): Positive for: Other (NGT in place) Nose (Internal): Positive for: Normal Inspection Neck: Positive for: Normal Range of Motion Respiratory/Chest: Positive for: Rhonchi. Negative for: Clear to Auscultation, Respiratory Distress, Accessory Muscle Use, Wheezes Cardiovascular: Positive for: Murmurs (L sternal border), Normal S1, S2, Irregular Rhythm, Tachycardic. Negative for: Regular Rate and Rhythm Abdomen: Positive for: Normal Bowel Sounds. Negative for: Tenderness, Distention Upper Extremity: Positive for: Normal Inspection, Other (R arm PICC line in place). Negative for: Edema Lower Extremity: Positive for: Edema (+2 to knees b/l L > R), Other (b/l foot dressings c/d/i). Negative for: Normal Inspection Neurological: Positive for: GCS=15, CN II-XII Intact, Speech Normal Skin: Positive for: Warm, Dry, Normal Color Psychiatric: Positive for: Alert, Oriented x 3, Normal Insight, Normal Concentration - Medications Active Medications: Active Medications Generic Name Dose Route Start Last Admin Trade Name Freq PRN Reason Stop Dose Admin Albuterol/Ipratropium 3 ml 03/24/17 00:00 03/26/17 07:40 Duoneb 3 Mg/0.5 Mg (3 Ml) Ud INH 3 ml RQ8 AWAIS Administration Amiodarone HCl 200 mg 03/19/17 10:00 03/25/17 09:17 Cordarone PO 200 mg DAILY AWAIS Administration Cilostazol 100 mg 03/18/17 18:00 03/25/17 18:17 Pletal PO 100 mg BID AWAIS Administration Collagenase 1 gm 03/21/17 10:00 03/25/17 19:19 Santyl TOP Not Given DAILY [facility] Docusate Sodium 100 mg 03/25/17 10:00 03/25/17 09:17 Colace PO 100 mg DAILY AWAIS Administration Ferrous Sulfate 325 mg 03/18/17 18:00 03/25/17 18:17 Feosol PO 325 mg BID AWAIS Administration Gabapentin 100 mg 03/18/17 18:00 03/25/17 18:17 Neurontin PO 100 mg BID AWAIS Administration Guaifenesin 600 mg 03/24/17 10:00 03/25/17 18:17 Mucinex La PO 600 mg BID AWAIS Administration Heparin Sodium (Porcine) 5,000 units 03/25/17 10:00 03/25/17 21:08 Heparin SC 5,000 units Q12 AWAIS Administration Fluconazole 100 mls @ 100 mls/hr 03/22/17 10:00 03/25/17 09:34 Diflucan Iv 200 Mg/100 Ml Ns IVPB 04/04/17 10:59 100 mls/hr DAILY AWAIS Administration Imipenem/Cilastatin Sodium 250 100 mls @ 100 mls/hr 03/22/17 12:00 03/26/17 05:33 mg/ Sodium Chloride IVPB 100 mls/hr Q6H AWAIS Administration Insulin Aspart 0 unit 03/22/17 11:30 03/25/17 21:23 Novolog SC Not Given ACHS [facility] Protocol Insulin Glargine 10 unit 03/19/17 10:00 03/25/17 12:09 Lantus SC 10 u DAILY AWAIS Administration Mupirocin 0 gm 03/18/17 18:00 03/25/17 19:17 Bactroban Ointment TOP Not Given BID [facility] Pantoprazole Sodium 40 mg 03/23/17 10:00 03/25/17 09:17 Protonix Ec Tab PO 40 mg DAILY AWAIS Administration Fluticasone/Salmeterol 1 puff 03/18/17 16:45 03/22/17 10:27 Advair Diskus 100/50 IH 1 puff RQD AWAIS Administration - Patient Studies Lab Studies: Lab Studies 03/26/17 03/26/17 03/26/17 Range/Units 07:13 06:03 06:03 WBC (4.8-10.8) K/uL RBC (4.40-5.90) Mil/uL Hgb (12.0-18.0) g/dL Hct (35.0-51.0) % MCV (80.0-94.0) fL MCH (27.0-31.0) pg MCHC (33.0-37.0) g/dL RDW (11.5-14.5) % Plt Count (130-400) K/uL MPV (7.2-11.7) fL Neut % (Auto) (50.0-75.0) % Lymph % (Auto) (20.0-40.0) % Bleckley % (Auto) (0.0-10.0) % Eos % (Auto) (0.0-4.0) % Baso % (Auto) (0.0-2.0) % Neut # (1.8-7.0) K/uL Lymph # (1.0-4.3) K/uL Bleckley # (0.0-0.8) K/uL Eos # (0.0-0.7) K/uL Baso # (0.0-0.2) K/uL APTT 32 (21-34) SECONDS Puncture Site pCO2 (35-45) mm/Hg pO2 (80-100) mm/Hg HCO3 (21-28) mmol/L ABG pH (7.35-7.45) ABG Total CO2 (22-28) mmol/L ABG O2 Saturation (95-98) % ABG Base Excess (-2.0-3.0) mmol/L Cipriano Test ABG Potassium (3.6-5.2) mmol/L A-a O2 Difference mm/Hg Respiratory Index Sodium 136 (132-148) mmol/l Chloride 102 (98-107) mmol/L Glucose (75-110) mg/dl Lactate (0.7-2.1) mmol/L Liter Flow FiO2 % Potassium 4.6 (3.6-5.2) mmol/L Carbon Dioxide 25 (22-30) mmol/L Anion Gap 14 (10-20) BUN 49 H (9-20) mg/dL Creatinine 1.4 (0.8-1.5) MG/DL Est GFR ( Amer) > 60 Est GFR (Non-Af Amer) 50 POC Glucose (mg/dL) 126 H (65-110) mg/dL Random Glucose 149 H (75-110) mg/dL Calcium 8.5 L (8.6-10.4) mg/dl Phosphorus 3.0 (2.5-4.5) mg/dL Magnesium 2.0 (1.6-2.3) mg/dL Total Bilirubin 1.1 (0.2-1.3) mg/dL AST 18 (17-59) U/L ALT 11 L (21-72) U/L Alkaline Phosphatase 85 (38-126) U/L Total Protein 6.5 (6.3-8.3) g/dL Albumin 2.8 L (3.5-5.0) g/dL Albumin (PEP) (3.8-4.8) g/dL Globulin 3.7 (2.2-3.9) gm/dL Albumin/Globulin Ratio 0.8 L (1.0-2.1) Ywosb-7-Wxxywtnsl (0.2-0.3) g/dL Eztvf-3-Rlponabiq (0.5-0.9) g/dL Dyge-8-Ahepeilo (0.4-0.6) g/dL Mrla-2-Otfjkpej (0.2-0.5) g/dL Gamma Globulins (0.8-1.7) g/dL Abnorm Protein Band 1 Abnorm Protein Band 2 Abnorm Protein Band 3 Arterial Blood Potassium (3.6-5.2) mmol/L ELDA & SPEP Interp 03/26/17 03/25/17 03/25/17 Range/Units 06:03 20:43 15:33 WBC 7.0 (4.8-10.8) K/uL RBC 3.05 L (4.40-5.90) Mil/uL Hgb 8.2 L (12.0-18.0) g/dL Hct 25.9 L (35.0-51.0) % MCV 84.8 (80.0-94.0) fL MCH 26.9 L (27.0-31.0) pg MCHC 31.8 L (33.0-37.0) g/dL RDW 17.9 H (11.5-14.5) % Plt Count 276 (130-400) K/uL MPV 8.5 (7.2-11.7) fL Neut % (Auto) 75.7 H (50.0-75.0) % Lymph % (Auto) 11.6 L (20.0-40.0) % Bleckley % (Auto) 6.9 (0.0-10.0) % Eos % (Auto) 5.0 H (0.0-4.0) % Baso % (Auto) 0.8 (0.0-2.0) % Neut # 5.3 (1.8-7.0) K/uL Lymph # 0.8 L (1.0-4.3) K/uL Bleckley # 0.5 (0.0-0.8) K/uL Eos # 0.4 (0.0-0.7) K/uL Baso # 0.1 (0.0-0.2) K/uL APTT (21-34) SECONDS Puncture Site pCO2 (35-45) mm/Hg pO2 (80-100) mm/Hg HCO3 (21-28) mmol/L ABG pH (7.35-7.45) ABG Total CO2 (22-28) mmol/L ABG O2 Saturation (95-98) % ABG Base Excess (-2.0-3.0) mmol/L Cipriano Test ABG Potassium (3.6-5.2) mmol/L A-a O2 Difference mm/Hg Respiratory Index Sodium (132-148) mmol/l Chloride (98-107) mmol/L Glucose (75-110) mg/dl Lactate (0.7-2.1) mmol/L Liter Flow FiO2 % Potassium (3.6-5.2) mmol/L Carbon Dioxide (22-30) mmol/L Anion Gap (10-20) BUN (9-20) mg/dL Creatinine (0.8-1.5) MG/DL Est GFR ( Amer) Est GFR (Non-Af Amer) POC Glucose (mg/dL) 220 H 213 H (65-110) mg/dL Random Glucose (75-110) mg/dL Calcium (8.6-10.4) mg/dl Phosphorus (2.5-4.5) mg/dL Magnesium (1.6-2.3) mg/dL Total Bilirubin (0.2-1.3) mg/dL AST (17-59) U/L ALT (21-72) U/L Alkaline Phosphatase (38-126) U/L Total Protein (6.3-8.3) g/dL Albumin (3.5-5.0) g/dL Albumin (PEP) (3.8-4.8) g/dL Globulin (2.2-3.9) gm/dL Albumin/Globulin Ratio (1.0-2.1) Ctvzp-6-Ycijhmmpu (0.2-0.3) g/dL Tbtyd-5-Akkstvsfp (0.5-0.9) g/dL Ogmd-1-Foometra (0.4-0.6) g/dL Qtxh-7-Ijwcvlhj (0.2-0.5) g/dL Gamma Globulins (0.8-1.7) g/dL Abnorm Protein Band 1 Abnorm Protein Band 2 Abnorm Protein Band 3 Arterial Blood Potassium (3.6-5.2) mmol/L ELDA & SPEP Interp 03/25/17 03/25/17 03/19/17 Range/Units 11:23 10:45 17:38 WBC (4.8-10.8) K/uL RBC (4.40-5.90) Mil/uL Hgb (12.0-18.0) g/dL Hct (35.0-51.0) % MCV (80.0-94.0) fL MCH (27.0-31.0) pg MCHC (33.0-37.0) g/dL RDW (11.5-14.5) % Plt Count (130-400) K/uL MPV (7.2-11.7) fL Neut % (Auto) (50.0-75.0) % Lymph % (Auto) (20.0-40.0) % Bleckley % (Auto) (0.0-10.0) % Eos % (Auto) (0.0-4.0) % Baso % (Auto) (0.0-2.0) % Neut # (1.8-7.0) K/uL Lymph # (1.0-4.3) K/uL Bleckley # (0.0-0.8) K/uL Eos # (0.0-0.7) K/uL Baso # (0.0-0.2) K/uL APTT (21-34) SECONDS Puncture Site Rr pCO2 37 (35-45) mm/Hg pO2 78 L (80-100) mm/Hg HCO3 24.3 (21-28) mmol/L ABG pH 7.41 (7.35-7.45) ABG Total CO2 24.6 (22-28) mmol/L ABG O2 Saturation 98.1 H (95-98) % ABG Base Excess -0.8 (-2.0-3.0) mmol/L Cipriano Test Po ABG Potassium 4.4 (3.6-5.2) mmol/L A-a O2 Difference 104.0 mm/Hg Respiratory Index 1.3 Sodium 140.0 (132-148) mmol/l Chloride 110.0 H (98-107) mmol/L Glucose 144 H (75-110) mg/dl Lactate 1.3 (0.7-2.1) mmol/L Liter Flow 3.0 FiO2 32.0 % Potassium (3.6-5.2) mmol/L Carbon Dioxide (22-30) mmol/L Anion Gap (10-20) BUN (9-20) mg/dL Creatinine (0.8-1.5) MG/DL Est GFR ( Amer) Est GFR (Non-Af Amer) POC Glucose (mg/dL) 160 H (65-110) mg/dL Random Glucose (75-110) mg/dL Calcium (8.6-10.4) mg/dl Phosphorus (2.5-4.5) mg/dL Magnesium (1.6-2.3) mg/dL Total Bilirubin (0.2-1.3) mg/dL AST (17-59) U/L ALT (21-72) U/L Alkaline Phosphatase (38-126) U/L Total Protein (6.3-8.3) g/dL Albumin (3.5-5.0) g/dL Albumin (PEP) 2.9 L (3.8-4.8) g/dL Globulin (2.2-3.9) gm/dL Albumin/Globulin Ratio (1.0-2.1) Mbqgz-8-Ckuponclt 0.4 H (0.2-0.3) g/dL Zvhzo-2-Zlgvwliqy 0.7 (0.5-0.9) g/dL Elou-9-Cvvcrdta 0.4 (0.4-0.6) g/dL Vtti-0-Lbfzgizc 0.4 (0.2-0.5) g/dL Gamma Globulins 1.8 H (0.8-1.7) g/dL Abnorm Protein Band 1 TEST NOT PERFORMED Abnorm Protein Band 2 TEST NOT PERFORMED Abnorm Protein Band 3 TEST NOT PERFORMED Arterial Blood Potassium 4.4 (3.6-5.2) mmol/L ELDA & SPEP Interp See note Laboratory Results - last 24 hr 03/19/17 03/25/17 03/25/17 17:38 10:45 11:23 WBC RBC Hgb Hct MCV MCH MCHC RDW Plt Count MPV Neut % (Auto) Lymph % (Auto) Bleckley % (Auto) Eos % (Auto) Baso % (Auto) Neut # Lymph # Bleckley # Eos # Baso # APTT Puncture Site Rr pCO2 37 pO2 78 L HCO3 24.3 ABG pH 7.41 ABG Total CO2 24.6 ABG O2 Saturation 98.1 H ABG Base Excess -0.8 Cipriano Test Po ABG Potassium 4.4 A-a O2 Difference 104.0 Respiratory Index 1.3 Sodium 140.0 Chloride 110.0 H Glucose 144 H Lactate 1.3 Liter Flow 3.0 FiO2 32.0 Potassium Carbon Dioxide Anion Gap BUN Creatinine Est GFR ( Amer) Est GFR (Non-Af Amer) POC Glucose (mg/dL) 160 H Random Glucose Calcium Phosphorus Magnesium Total Bilirubin AST ALT Alkaline Phosphatase Total Protein Albumin Albumin (PEP) 2.9 L Globulin Albumin/Globulin Ratio Iaypr-6-Uulblxwus 0.4 H Vbhwc-3-Nujqqydvx 0.7 Mtaz-2-Hcfkfaaq 0.4 Uyxo-7-Mjcpmjyg 0.4 Gamma Globulins 1.8 H Abnorm Protein Band 1 TEST NOT PERFORMED Abnorm Protein Band 2 TEST NOT PERFORMED Abnorm Protein Band 3 TEST NOT PERFORMED Arterial Blood Potassium 4.4 ELDA & SPEP Interp See note 03/25/17 03/25/17 03/26/17 15:33 20:43 06:03 WBC 7.0 RBC 3.05 L Hgb 8.2 L Hct 25.9 L MCV 84.8 MCH 26.9 L MCHC 31.8 L RDW 17.9 H Plt Count 276 MPV 8.5 Neut % (Auto) 75.7 H Lymph % (Auto) 11.6 L Bleckley % (Auto) 6.9 Eos % (Auto) 5.0 H Baso % (Auto) 0.8 Neut # 5.3 Lymph # 0.8 L Bleckley # 0.5 Eos # 0.4 Baso # 0.1 APTT Puncture Site pCO2 pO2 HCO3 ABG pH ABG Total CO2 ABG O2 Saturation ABG Base Excess Cipraino Test ABG Potassium A-a O2 Difference Respiratory Index Sodium Chloride Glucose Lactate Liter Flow FiO2 Potassium Carbon Dioxide Anion Gap BUN Creatinine Est GFR ( Amer) Est GFR (Non-Af Amer) POC Glucose (mg/dL) 213 H 220 H Random Glucose Calcium Phosphorus Magnesium Total Bilirubin AST ALT Alkaline Phosphatase Total Protein Albumin Albumin (PEP) Globulin Albumin/Globulin Ratio Eervs-5-Driswiuvl Touwj-3-Ydacrhgjy Ylbd-1-Fecvjbjh Znep-5-Liaobamn Gamma Globulins Abnorm Protein Band 1 Abnorm Protein Band 2 Abnorm Protein Band 3 Arterial Blood Potassium ELDA & SPEP Interp 03/26/17 03/26/17 03/26/17 06:03 06:03 07:13 WBC RBC Hgb Hct MCV MCH MCHC RDW Plt Count MPV Neut % (Auto) Lymph % (Auto) Bleckley % (Auto) Eos % (Auto) Baso % (Auto) Neut # Lymph # Bleckley # Eos # Baso # APTT 32 Puncture Site pCO2 pO2 HCO3 ABG pH ABG Total CO2 ABG O2 Saturation ABG Base Excess Cipriano Test ABG Potassium A-a O2 Difference Respiratory Index Sodium 136 Chloride 102 Glucose Lactate Liter Flow FiO2 Potassium 4.6 Carbon Dioxide 25 Anion Gap 14 BUN 49 H Creatinine 1.4 Est GFR ( Amer) > 60 Est GFR (Non-Af Amer) 50 POC Glucose (mg/dL) 126 H Random Glucose 149 H Calcium 8.5 L Phosphorus 3.0 Magnesium 2.0 Total Bilirubin 1.1 AST 18 ALT 11 L Alkaline Phosphatase 85 Total Protein 6.5 Albumin 2.8 L Albumin (PEP) Globulin 3.7 Albumin/Globulin Ratio 0.8 L Nzoam-9-Tkpbgmsuu Alqhe-7-Zbnvfklub Gydc-5-Ualfelqp Dbtz-6-Jkkfhmqk Gamma Globulins Abnorm Protein Band 1 Abnorm Protein Band 2 Abnorm Protein Band 3 Arterial Blood Potassium ELDA & SPEP Interp Fingerstick Blood Sugar Results: 220 Review of Systems - Constitutional Constitutional: absent: Fever, Chills - EENT Eyes: As Per HPI. absent: Change in Vision Ears: As Per HPI. absent: Tinnitus, Dizziness Nose/Mouth/Throat: As Per HPI. absent: Sore Throat - Cardiovascular Cardiovascular: As Per HPI, Edema. absent: Chest Pain - Respiratory Respiratory: As Per HPI, Cough. absent: Wheezing - Gastrointestinal Gastrointestinal: As Per HPI. absent: Abdominal Pain, Constipation, Diarrhea, Nausea, Vomiting - Genitourinary Genitourinary: As Per HPI. absent: Dysuria - Musculoskeletal Musculoskeletal: As Par HPI. absent: Numbness, Tingling - Integumentary Integumentary: As Per HPI. absent: Dry Skin - Neurological Neurological: As Per HPI. absent: Dizziness, Headaches - Endocrine Endocrine: As Per HPI. absent: Polydipsia, Polyphagia, Polyuria - Hematologic/Lymphatic Hematologic: As Per HPI. absent: Lymphadenopathy Critical Care Progress Note - Nutrition Nutrition: Nutrition Category Date Time Status Heart Healthy Diet [DIET] Diets 03/21/17 Dinner Active Assessment/Plan - Assessment and Plan (Free Text) Assessment: 71 M PMHx of CAD, CABG, AFib, DM w/ b/l toe amp, PVD, HTN, chronic anemia admitted for acute on chronic anemia, guaic positive and hypotension Plan: Neuro: -No acute issues -Alert and oriented 3 Pulm: -CXR 03/24: moderate to severe venous congestion with bibasilar airspace opacities and small b/l pleural effusions. R peritracheal airspace opacity may represent prominent vasculature -Mucinex 600mg po bid -Breathing spontaneously on 2 L nasal cannula. -Duoneb 3ml inh q6 -Advair 100/50 1 puff inh qdaily -Chest PT -OOB to chair CV: -Relatively hypotensive for her normally hypertensive patient. -Tachycardic -Chronic systolic congestive heart failure (EF 30-35%, last echo 11/22/2016). -repeat Echo: LV systolic function is severely impaired; EF 25-30%; septal motion consistent with postop state; global hypokinesis of LV; transmitral Doppler flow pattern is GRad II pseudonormal filling dynamics; severe valvular ; MR is moderate; severe pulmonary HTN -Amiodarone 200mg po daily -Pletal 100mg po bid Heme: -Acute on chronic anemia -FOBT+ -EGD showed monilial esophagitis; small hiatus hernia; erosive gastropathy; normal examined duodenum -s/p 3U PRBC transfusion -Feosol 325mg po bid -CT Abd/pelvis: no evidence of intraperitoneal hemorrhage or retroperitoneal hemorrhage -GI consulted: Dr Ag Renal: -Acute renal failure -ESBL+ in urine -Patient on primaxin 250mg ivpb q6 -Nephrology consulted: Dr Haji Endo: -DM type II -RISS short acting -Lantus 10U sc daily -Neurontin 100mg po bid GI: -FOBT+ -EGD showed monilial esophagitis; small hiatus hernia; erosive gastropathy; normal examined duodenum -Diflucan IVPB daily -s/p 3U PRBC transfusion -CT Abd/pelvis: no evidence of intraperitoneal hemorrhage or retroperitoneal hemorrhage -Patient has not had a BM in a few days -Colace 100mg po daily -Miralax 17gm once -GI recommends diagnostic paracentesis for ascites seen on CT abdomen with fluid for cell count and diff, culture and sensitivity, albumin and total protein, cytology -GI consulted: Dr Ag ID: -ESBL+ in urine -Primaxin 250mg ivpb q6 MSK: -Podiatry following DVT proph - SCDs, Heparin 5000u sc q12 GI proph - Protonix 40mg po daily allen for strict I/O's during acute illness PT/OT Chest physical therapy OOB to chair Code status - full code Dispo: stable for transfer to TELE Case discussed with Dr. Randy Mora PGY2 <Luis Padilla - Last Filed: 03/26/17 16:31> CCU Objective - Vital Signs / Intake & Output Vital Signs (Last 4 hours): Vital Signs Temp Pulse Resp BP 03/26/17 16:15 97.6 F 102 H 21 112/72 03/26/17 16:00 97.8 F 103 H 20 114/80 03/26/17 15:45 97.5 F L 100 H 16 110/84 Intake and Output (Last 8hrs): Intake & Output 03/26/17 03/26/17 03/26/17 06:59 14:59 22:59 Intake Total 200 270 0 Output Total 350 0 Balance -150 270 0 Intake: Intake, IV Amount 200 100 Right PICC #2 200 100 Oral 0 170 Blood Product 0 Red Blood Cells Cpd As1 0 Lr Unit [id number] Output: Urine 350 0 Urine, Voided 350 0 - Medications Active Medications: Active Medications Generic Name Dose Route Start Last Admin Trade Name Freq PRN Reason Stop Dose Admin Albuterol/Ipratropium 3 ml 03/24/17 00:00 03/26/17 16:24 Duoneb 3 Mg/0.5 Mg (3 Ml) Ud INH 3 ml RQ8 AWAIS Administration Amiodarone HCl 200 mg 03/19/17 10:00 03/26/17 09:34 Cordarone PO 200 mg DAILY AWAIS Administration Cilostazol 100 mg 03/18/17 18:00 03/26/17 09:35 Pletal PO 100 mg BID AWAIS Administration Collagenase 1 gm 03/21/17 10:00 03/26/17 09:36 Santyl TOP 1 applic DAILY AWAIS Administration Docusate Sodium 100 mg 03/25/17 10:00 03/26/17 09:35 Colace PO 100 mg DAILY AWAIS Administration Ferrous Sulfate 325 mg 03/18/17 18:00 03/26/17 09:34 Feosol PO 325 mg BID AWAIS Administration Furosemide 20 mg 03/26/17 13:00 Lasix IVP ONCE PRN Cough and congestion Gabapentin 100 mg 03/18/17 18:00 03/26/17 09:34 Neurontin PO 100 mg BID AWAIS Administration Guaifenesin 600 mg 03/24/17 10:00 03/26/17 09:35 Mucinex La PO 600 mg BID AWAIS Administration Heparin Sodium (Porcine) 5,000 units 03/25/17 10:00 03/26/17 09:34 Heparin SC 5,000 units Q12 AWAIS Administration Fluconazole 100 mls @ 100 mls/hr 03/22/17 10:00 03/26/17 11:38 Diflucan Iv 200 Mg/100 Ml Ns IVPB 04/04/17 10:59 100 mls/hr DAILY AWAIS Administration Imipenem/Cilastatin Sodium 250 100 mls @ 100 mls/hr 03/22/17 12:00 03/26/17 13:31 mg/ Sodium Chloride IVPB 100 mls/hr Q6H AWAIS Administration Insulin Aspart 0 unit 03/22/17 11:30 03/26/17 11:30 Novolog SC Not Given ACHS [facility] Protocol Insulin Glargine 10 unit 03/19/17 10:00 03/26/17 09:37 Lantus SC 10 u DAILY AWAIS Administration Mupirocin 0 gm 03/18/17 18:00 03/26/17 09:36 Bactroban Ointment TOP 1 applic BID AWAIS Administration Pantoprazole Sodium 40 mg 03/23/17 10:00 03/26/17 09:34 Protonix Ec Tab PO 40 mg DAILY AWAIS Administration Fluticasone/Salmeterol 1 puff 03/18/17 16:45 03/22/17 10:27 Advair Diskus 100/50 IH 1 puff RQD AWAIS Administration - Patient Studies Lab Studies: Lab Studies 03/26/17 03/26/17 03/26/17 Range/Units 12:41 12:37 07:13 WBC (4.8-10.8) K/uL RBC (4.40-5.90) Mil/uL Hgb (12.0-18.0) g/dL Hct (35.0-51.0) % MCV (80.0-94.0) fL MCH (27.0-31.0) pg MCHC (33.0-37.0) g/dL RDW (11.5-14.5) % Plt Count (130-400) K/uL MPV (7.2-11.7) fL Neut % (Auto) (50.0-75.0) % Lymph % (Auto) (20.0-40.0) % [place] % (Auto) (0.0-10.0) % Eos % (Auto) (0.0-4.0) % Baso % (Auto) (0.0-2.0) % Neut # (1.8-7.0) K/uL Lymph # (1.0-4.3) K/uL [place] # (0.0-0.8) K/uL Eos # (0.0-0.7) K/uL Baso # (0.0-0.2) K/uL APTT (21-34) SECONDS Sodium (132-148) mmol/L Potassium (3.6-5.2) mmol/L Chloride (98-107) mmol/L Carbon Dioxide (22-30) mmol/L Anion Gap (10-20) BUN (9-20) mg/dL Creatinine (0.8-1.5) MG/DL Est GFR ( Amer) Est GFR (Non-Af Amer) POC Glucose (mg/dL) 139 H 126 H (65-110) mg/dL Random Glucose (75-110) mg/dL Calcium (8.6-10.4) mg/dl Phosphorus (2.5-4.5) mg/dL Magnesium (1.6-2.3) mg/dL Total Bilirubin (0.2-1.3) mg/dL AST (17-59) U/L ALT (21-72) U/L Alkaline Phosphatase (38-126) U/L Total Protein (6.3-8.3) g/dL Albumin (3.5-5.0) g/dL Globulin (2.2-3.9) gm/dL Albumin/Globulin Ratio (1.0-2.1) Hepatitis A IgM Ab (Nonreactive) Hepatitis A Ab Total (Nonreactive) Blood Type O POSITIVE Antibody Screen Negative 03/26/17 03/26/17 03/26/17 Range/Units 06:03 06:03 06:03 WBC 7.0 (4.8-10.8) K/uL RBC 3.05 L (4.40-5.90) Mil/uL Hgb 8.2 L (12.0-18.0) g/dL Hct 25.9 L (35.0-51.0) % MCV 84.8 (80.0-94.0) fL MCH 26.9 L (27.0-31.0) pg MCHC 31.8 L (33.0-37.0) g/dL RDW 17.9 H (11.5-14.5) % Plt Count 276 (130-400) K/uL MPV 8.5 (7.2-11.7) fL Neut % (Auto) 75.7 H (50.0-75.0) % Lymph % (Auto) 11.6 L (20.0-40.0) % [place] % (Auto) 6.9 (0.0-10.0) % Eos % (Auto) 5.0 H (0.0-4.0) % Baso % (Auto) 0.8 (0.0-2.0) % Neut # 5.3 (1.8-7.0) K/uL Lymph # 0.8 L (1.0-4.3) K/uL [place] # 0.5 (0.0-0.8) K/uL Eos # 0.4 (0.0-0.7) K/uL Baso # 0.1 (0.0-0.2) K/uL APTT 32 (21-34) SECONDS Sodium 136 (132-148) mmol/L Potassium 4.6 (3.6-5.2) mmol/L Chloride 102 (98-107) mmol/L Carbon Dioxide 25 (22-30) mmol/L Anion Gap 14 (10-20) BUN 49 H (9-20) mg/dL Creatinine 1.4 (0.8-1.5) MG/DL Est GFR ( Amer) > 60 Est GFR (Non-Af Amer) 50 POC Glucose (mg/dL) (65-110) mg/dL Random Glucose 149 H (75-110) mg/dL Calcium 8.5 L (8.6-10.4) mg/dl Phosphorus 3.0 (2.5-4.5) mg/dL Magnesium 2.0 (1.6-2.3) mg/dL Total Bilirubin 1.1 (0.2-1.3) mg/dL AST 18 (17-59) U/L ALT 11 L (21-72) U/L Alkaline Phosphatase 85 (38-126) U/L Total Protein 6.5 (6.3-8.3) g/dL Albumin 2.8 L (3.5-5.0) g/dL Globulin 3.7 (2.2-3.9) gm/dL Albumin/Globulin Ratio 0.8 L (1.0-2.1) Hepatitis A IgM Ab (Nonreactive) Hepatitis A Ab Total (Nonreactive) Blood Type Antibody Screen 03/25/17 03/25/17 Range/Units 20:43 07:45 WBC (4.8-10.8) K/uL RBC (4.40-5.90) Mil/uL Hgb (12.0-18.0) g/dL Hct (35.0-51.0) % MCV (80.0-94.0) fL MCH (27.0-31.0) pg MCHC (33.0-37.0) g/dL RDW (11.5-14.5) % Plt Count (130-400) K/uL MPV (7.2-11.7) fL Neut % (Auto) (50.0-75.0) % Lymph % (Auto) (20.0-40.0) % [place] % (Auto) (0.0-10.0) % Eos % (Auto) (0.0-4.0) % Baso % (Auto) (0.0-2.0) % Neut # (1.8-7.0) K/uL Lymph # (1.0-4.3) K/uL [place] # (0.0-0.8) K/uL Eos # (0.0-0.7) K/uL Baso # (0.0-0.2) K/uL APTT (21-34) SECONDS Sodium (132-148) mmol/L Potassium (3.6-5.2) mmol/L Chloride (98-107) mmol/L Carbon Dioxide (22-30) mmol/L Anion Gap (10-20) BUN (9-20) mg/dL Creatinine (0.8-1.5) MG/DL Est GFR ( Amer) Est GFR (Non-Af Amer) POC Glucose (mg/dL) 220 H (65-110) mg/dL Random Glucose (75-110) mg/dL Calcium (8.6-10.4) mg/dl Phosphorus (2.5-4.5) mg/dL Magnesium (1.6-2.3) mg/dL Total Bilirubin (0.2-1.3) mg/dL AST (17-59) U/L ALT (21-72) U/L Alkaline Phosphatase (38-126) U/L Total Protein (6.3-8.3) g/dL Albumin (3.5-5.0) g/dL Globulin (2.2-3.9) gm/dL Albumin/Globulin Ratio (1.0-2.1) Hepatitis A IgM Ab Nonreactive (Nonreactive) Hepatitis A Ab Total Reactive H (Nonreactive) Blood Type Antibody Screen Laboratory Results - last 24 hr 03/25/17 03/25/17 03/26/17 07:45 20:43 06:03 WBC 7.0 RBC 3.05 L Hgb 8.2 L Hct 25.9 L MCV 84.8 MCH 26.9 L MCHC 31.8 L RDW 17.9 H Plt Count 276 MPV 8.5 Neut % (Auto) 75.7 H Lymph % (Auto) 11.6 L [place] % (Auto) 6.9 Eos % (Auto) 5.0 H Baso % (Auto) 0.8 Neut # 5.3 Lymph # 0.8 L [place] # 0.5 Eos # 0.4 Baso # 0.1 APTT Sodium Potassium Chloride Carbon Dioxide Anion Gap BUN Creatinine Est GFR ( Amer) Est GFR (Non-Af Amer) POC Glucose (mg/dL) 220 H Random Glucose Calcium Phosphorus Magnesium Total Bilirubin AST ALT Alkaline Phosphatase Total Protein Albumin Globulin Albumin/Globulin Ratio Hepatitis A IgM Ab Nonreactive Hepatitis A Ab Total Reactive H Blood Type Antibody Screen 03/26/17 03/26/17 03/26/17 06:03 06:03 07:13 WBC RBC Hgb Hct MCV MCH MCHC RDW Plt Count MPV Neut % (Auto) Lymph % (Auto) [place] % (Auto) Eos % (Auto) Baso % (Auto) Neut # Lymph # [place] # Eos # Baso # APTT 32 Sodium 136 Potassium 4.6 Chloride 102 Carbon Dioxide 25 Anion Gap 14 BUN 49 H Creatinine 1.4 Est GFR ( Amer) > 60 Est GFR (Non-Af Amer) 50 POC Glucose (mg/dL) 126 H Random Glucose 149 H Calcium 8.5 L Phosphorus 3.0 Magnesium 2.0 Total Bilirubin 1.1 AST 18 ALT 11 L Alkaline Phosphatase 85 Total Protein 6.5 Albumin 2.8 L Globulin 3.7 Albumin/Globulin Ratio 0.8 L Hepatitis A IgM Ab Hepatitis A Ab Total Blood Type Antibody Screen 03/26/17 03/26/17 12:37 12:41 WBC RBC Hgb Hct MCV MCH MCHC RDW Plt Count MPV Neut % (Auto) Lymph % (Auto) [place] % (Auto) Eos % (Auto) Baso % (Auto) Neut # Lymph # [place] # Eos # Baso # APTT Sodium Potassium Chloride Carbon Dioxide Anion Gap BUN Creatinine Est GFR ( Amer) Est GFR (Non-Af Amer) POC Glucose (mg/dL) 139 H Random Glucose Calcium Phosphorus Magnesium Total Bilirubin AST ALT Alkaline Phosphatase Total Protein Albumin Globulin Albumin/Globulin Ratio Hepatitis A IgM Ab Hepatitis A Ab Total Blood Type O POSITIVE Antibody Screen Negative Critical Care Progress Note - Nutrition Nutrition: Nutrition Category Date Time Status Heart Healthy Diet [DIET] Diets 03/21/17 Dinner Active Assessment/Plan (1) Acute exacerbation of CHF (congestive heart failure) Current Visit: Yes Status: Acute (2) A-fib Current Visit: No Status: Acute (3) GI bleed Current Visit: No Status: Acute Attending/Attestation - Attestation I have personally seen and examined this patient.: Yes I have fully participated in the care of the patient.: Yes I have reviewed all pertinent clinical information: Yes Notes (Text): 03/26/17 16:31 patient seen and examined in the intensive care unit. case discussed with house staff in the morning rounds. No change in patient condition, transfer to telemetry monitoring
[2017-03-26] MEDS: (Novolog) Insulin Aspart, Recombinant 100 u/ml 10 ml vial SC SCH ×4 (08:12→22:00)
--- NOTE | 2017-03-26 08:49 | CP.PCM.PN ---
Subjective - Date & Time of Evaluation Date of Evaluation: 03/26/17 Time of Evaluation: 08:30 - Subjective Subjective: Medical Attending Note Follow-up: Patient seen and examined this morning. Patient denies acute complaints. Patient 's is not at bedside. Objective - Vital Signs/Intake and Output Vital Signs (last 24 hours): Temp Pulse Resp BP Pulse Ox 98.2 F 102 H 17 95/54 L 82 L 03/26/17 08:00 03/26/17 08:00 03/26/17 08:00 03/26/17 07:26 03/26/17 08:00 Intake and Output: 03/26/17 03/26/17 06:59 18:59 Intake Total 255 120 Output Total 350 0 Balance -95 120 - Medications Medications: Current Medications Albuterol/Ipratropium (Duoneb 3 Mg/0.5 Mg (3 Ml) Ud) 3 ml INH RQ8 [facility] Last Admin: 03/26/17 07:40 Dose: 3 ml Amiodarone HCl (Cordarone) 200 mg PO DAILY [facility] Last Admin: 03/25/17 09:17 Dose: 200 mg Cilostazol (Pletal) 100 mg PO BID [facility] Last Admin: 03/25/17 18:17 Dose: 100 mg Collagenase (Santyl) 1 gm TOP DAILY [facility] Last Admin: 03/25/17 19:19 Dose: Not Given Docusate Sodium (Colace) 100 mg PO DAILY [facility] Last Admin: 03/25/17 09:17 Dose: 100 mg Ferrous Sulfate (Feosol) 325 mg PO BID [facility] Last Admin: 03/25/17 18:17 Dose: 325 mg Gabapentin (Neurontin) 100 mg PO BID [facility] Last Admin: 03/25/17 18:17 Dose: 100 mg Guaifenesin (Mucinex La) 600 mg PO BID [facility] Last Admin: 03/25/17 18:17 Dose: 600 mg Heparin Sodium (Porcine) (Heparin) 5,000 units SC Q12 [facility] Last Admin: 03/25/17 21:08 Dose: 5,000 units Fluconazole (Diflucan Iv 200 Mg/100 Ml Ns) 100 mls @ 100 mls/hr IVPB DAILY [facility] Stop: 04/04/17 10:59 Last Admin: 03/25/17 09:34 Dose: 100 mls/hr Imipenem/Cilastatin Sodium 250 (mg/ Sodium Chloride) 100 mls @ 100 mls/hr IVPB Q6H [facility] Last Admin: 03/26/17 05:33 Dose: 100 mls/hr Insulin Aspart (Novolog) 0 unit SC ACHS [facility] PRN Reason: Protocol Last Admin: 03/26/17 08:12 Dose: Not Given Insulin Glargine (Lantus) 10 unit SC DAILY [facility] Last Admin: 03/25/17 12:09 Dose: 10 u Mupirocin (Bactroban Ointment) 0 gm TOP BID [facility] Last Admin: 03/25/17 19:17 Dose: Not Given Pantoprazole Sodium (Protonix Ec Tab) 40 mg PO DAILY [facility] Last Admin: 03/25/17 09:17 Dose: 40 mg Fluticasone/Salmeterol (Advair Diskus 100/50) 1 puff IH RQD [facility] Last Admin: 03/22/17 10:27 Dose: 1 puff - Labs Labs: 03/26/17 06:03 03/26/17 06:03 PT 15.8 SECONDS (9.7-12.2) H 03/25/17 06:16 INR 1.4 03/25/17 06:16 APTT 32 SECONDS (21-34) 03/26/17 06:03 - Constitutional Appears: Non-toxic, No Acute Distress - Head Exam Head Exam: NORMAL INSPECTION - Eye Exam Eye Exam: EOMI - ENT Exam ENT Exam: Mucous Membranes Moist - Respiratory Exam Respiratory Exam: Decreased Breath Sounds, NORMAL BREATHING PATTERN. absent: Stridor - Cardiovascular Exam Cardiovascular Exam: Tachycardia, +S1, +S2 - GI/Abdominal Exam GI & Abdominal Exam: Soft, Normal Bowel Sounds. absent: Distended, Guarding, Rigid, Tenderness, Rebound - Extremities Exam Extremities Exam: Joint Swelling, Pedal Edema. absent: Tenderness - Neurological Exam Neurological Exam: Alert, Awake, Oriented x3 - Psychiatric Exam Psychiatric exam: Normal Affect, Normal Mood - Skin Skin Exam: Dry, Intact, Normal Color, Warm. absent: Petechiae, Rash Assessment and Plan - Assessment and Plan (Free Text) Assessment: (1) Anemia 03/26: Hgb: 8.2 Iron: 36, TIBC: 285, %14, Ferritin: 48.5 Endoscopy (03/21): monillial esophagitis. Cells for cytology obtained. Erosive gastropahty. Normal examined duodenum-->negative cytology cells Patient has had 3 units of PRBC transfused during hospitalization Consult: Dr. Ag (GI) on board-->help appreciated---> can patient start anticoagulation? CT Abd/pelvis: no evidence of intraperitoneal hemorrhage or retroperitoneal hemorrhage (2) Acute exacerbation of CHF (congestive heart failure) Consult: Dr. Canales (Cardiology) on board-->help appreciated Echocardiogram (03/21/17): left ventricle systolic function is severely impaired , EF: 25%, spetal motion consistent with post operative state. Global hypokinesis of the left ventricle. Grade II-pseudonormal filling. Severe valvuar aortic stenosis. Mitral regurgitation is moderate. Severe pulmonary hypertension Per cardiology, patient is not a surgical candidate for aortic stenosis Amiodarone 200mg PO daily (3) Atrial fibrillation Amiodarone 200mg PO daily patient is off Xarelto secondary to GI workup r/o bleed (4) LETICIA (acute kidney injury) Consult: Dr. Reynolds (nephrology) on board-->help appreciated Improving Off lasix/juan jose/arb/statin (5) HTN (hypertension) Patient is borderline hypotensive. (6) Hx of CABG Continue medical management as per cardiology. (7) Diabetes mellitus with hyperglycemia Hgba1c: 7.2 Lantus 10 units subq daily (8) Hyperlipidemia off statin (9) Peripheral vascular disease Patient is on Pletal 100mg PO BID (10) Esophageal candidiasis On Diflucan 200mg IV q daily (active since 03/22/17) (11) UTI due to extended-spectrum beta lactamase (ESBL) producing Escherichia coli primaxin 250mg IV 6 hours (active since 03/22/17) urine culture (03/20/17): +ESBL (12) Prophylactic measure Protonix 40mg PO daily heparin 5000 units subq 12 hours PT/OT eval OOB
[2017-03-26] MEDS: Pantoprazole 40 mg EC Tab PO SCH (09:34)
[2017-03-26] MEDS: guaiFENesin 600 mg ER Tab PO SCH ×2 (09:35→17:41)
[2017-03-26] MEDS: Cilostazol 100 mg Tab UD PO SCH ×2 (09:35→19:32)
[2017-03-26] MEDS: Collagenase 250 Units/gm Ointment(30 gm) TOP SCH (09:36)
[2017-03-26] MEDS: (Lantus) Insulin Glargine, Recombinant SC SCH (09:37)
[2017-03-26] MEDS: Fluticasone-Salmeterol 100-50mcg Diskus IH SCH (10:41)
[2017-03-26] MEDS: Fluconazole IV 200mg/100 ml NS 100 ML IVPB SCH (11:38)
[2017-03-26 12:39] LABS: HAV AB (IGM) Nonreactive (Nonreactive)
--- NOTE | 2017-03-26 13:08 | CP.PCM.PN ---
Subjective - Date & Time of Evaluation Date of Evaluation: 03/26/17 Time of Evaluation: 13:05 - Subjective Subjective: Comfortable Creat stable at 1.4 echo results noted UO-575 ml BP controlled LETICIA has resolved Objective - Vital Signs/Intake and Output Vital Signs (last 24 hours): Temp Pulse Resp BP Pulse Ox 98.2 F 102 H 24 120/78 100 03/26/17 08:00 03/26/17 11:26 03/26/17 11:26 03/26/17 11:26 03/26/17 11:26 Intake and Output: 03/26/17 03/26/17 06:59 18:59 Intake Total 255 270 Output Total 350 0 Balance -95 270 - Medications Medications: Current Medications Albuterol/Ipratropium (Duoneb 3 Mg/0.5 Mg (3 Ml) Ud) 3 ml INH RQ8 [facility] Last Admin: 03/26/17 07:40 Dose: 3 ml Amiodarone HCl (Cordarone) 200 mg PO DAILY [facility] Last Admin: 03/26/17 09:34 Dose: 200 mg Cilostazol (Pletal) 100 mg PO BID [facility] Last Admin: 03/26/17 09:35 Dose: 100 mg Collagenase (Santyl) 1 gm TOP DAILY [facility] Last Admin: 03/26/17 09:36 Dose: 1 applic Docusate Sodium (Colace) 100 mg PO DAILY [facility] Last Admin: 03/26/17 09:35 Dose: 100 mg Ferrous Sulfate (Feosol) 325 mg PO BID [facility] Last Admin: 03/26/17 09:34 Dose: 325 mg Furosemide (Lasix) 20 mg IVP ONCE PRN PRN Reason: Cough and congestion Gabapentin (Neurontin) 100 mg PO BID [facility] Last Admin: 03/26/17 09:34 Dose: 100 mg Guaifenesin (Mucinex La) 600 mg PO BID [facility] Last Admin: 03/26/17 09:35 Dose: 600 mg Heparin Sodium (Porcine) (Heparin) 5,000 units SC Q12 [facility] Last Admin: 03/26/17 09:34 Dose: 5,000 units Fluconazole (Diflucan Iv 200 Mg/100 Ml Ns) 100 mls @ 100 mls/hr IVPB DAILY [facility] Stop: 04/04/17 10:59 Last Admin: 03/26/17 11:38 Dose: 100 mls/hr Imipenem/Cilastatin Sodium 250 (mg/ Sodium Chloride) 100 mls @ 100 mls/hr IVPB Q6H [facility] Last Admin: 03/26/17 05:33 Dose: 100 mls/hr Insulin Aspart (Novolog) 0 unit SC ACHS [facility] PRN Reason: Protocol Last Admin: 03/26/17 08:12 Dose: Not Given Insulin Glargine (Lantus) 10 unit SC DAILY [facility] Last Admin: 03/26/17 09:37 Dose: 10 u Mupirocin (Bactroban Ointment) 0 gm TOP BID [facility] Last Admin: 03/26/17 09:36 Dose: 1 applic Pantoprazole Sodium (Protonix Ec Tab) 40 mg PO DAILY [facility] Last Admin: 03/26/17 09:34 Dose: 40 mg Fluticasone/Salmeterol (Advair Diskus 100/50) 1 puff IH RQD [facility] Last Admin: 03/22/17 10:27 Dose: 1 puff - Labs Labs: 03/26/17 06:03 03/26/17 06:03 PT 15.8 SECONDS (9.7-12.2) H 03/25/17 06:16 INR 1.4 03/25/17 06:16 APTT 32 SECONDS (21-34) 03/26/17 06:03 - Constitutional Appears: No Acute Distress, Chronically Ill - Head Exam Head Exam: ATRAUMATIC, NORMAL INSPECTION - Eye Exam Eye Exam: EOMI, Normal appearance - Neck Exam Neck Exam: Normal Inspection. absent: Tenderness - Respiratory Exam Respiratory Exam: Clear to Ausculation Bilateral, NORMAL BREATHING PATTERN - Cardiovascular Exam Cardiovascular Exam: REGULAR RHYTHM, +S1 - GI/Abdominal Exam GI & Abdominal Exam: Soft. absent: Tenderness - Extremities Exam Extremities Exam: Pedal Edema. absent: Tenderness - Neurological Exam Neurological Exam: Awake, CN II-XII Intact - Skin Skin Exam: Dry, Warm Assessment and Plan (1) LETICIA (acute kidney injury) Status: Acute (2) UTI due to extended-spectrum beta lactamase (ESBL) producing Escherichia coli Status: Acute (3) Dehydration Status: Acute (4) Diabetic peripheral angiopathy Status: Acute - Assessment and Plan (Free Text) Plan: Continue to monitor renal function- stable at present Lytes stable Consider daily oral lasix for further CHF prevention
--- NOTE | 2017-03-26 16:37 | CP.PCM.PN ---
Subjective - Date & Time of Evaluation Date of Evaluation: 03/26/17 Time of Evaluation: 16:35 - Subjective Subjective: Patient denies having nausea, vomiting, abdominal pain. His appetite is poor. He has not had a bowel movement in the past two days. Objective - Vital Signs/Intake and Output Vital Signs (last 24 hours): Temp Pulse Resp BP Pulse Ox 97.6 F 102 H 21 112/72 100 03/26/17 16:15 03/26/17 16:15 03/26/17 16:15 03/26/17 16:15 03/26/17 11:26 Intake and Output: 03/26/17 03/26/17 06:59 18:59 Intake Total 255 270 Output Total 350 0 Balance -95 270 - Medications Medications: Current Medications Albuterol/Ipratropium (Duoneb 3 Mg/0.5 Mg (3 Ml) Ud) 3 ml INH RQ8 [facility] Last Admin: 03/26/17 16:24 Dose: 3 ml Amiodarone HCl (Cordarone) 200 mg PO DAILY [facility] Last Admin: 03/26/17 09:34 Dose: 200 mg Cilostazol (Pletal) 100 mg PO BID [facility] Last Admin: 03/26/17 09:35 Dose: 100 mg Collagenase (Santyl) 1 gm TOP DAILY [facility] Last Admin: 03/26/17 09:36 Dose: 1 applic Docusate Sodium (Colace) 100 mg PO DAILY [facility] Last Admin: 03/26/17 09:35 Dose: 100 mg Ferrous Sulfate (Feosol) 325 mg PO BID [facility] Last Admin: 03/26/17 09:34 Dose: 325 mg Furosemide (Lasix) 20 mg IVP ONCE PRN PRN Reason: Cough and congestion Gabapentin (Neurontin) 100 mg PO BID [facility] Last Admin: 03/26/17 09:34 Dose: 100 mg Guaifenesin (Mucinex La) 600 mg PO BID [facility] Last Admin: 03/26/17 09:35 Dose: 600 mg Heparin Sodium (Porcine) (Heparin) 5,000 units SC Q12 [facility] Last Admin: 03/26/17 09:34 Dose: 5,000 units Fluconazole (Diflucan Iv 200 Mg/100 Ml Ns) 100 mls @ 100 mls/hr IVPB DAILY [facility] Stop: 04/04/17 10:59 Last Admin: 03/26/17 11:38 Dose: 100 mls/hr Imipenem/Cilastatin Sodium 250 (mg/ Sodium Chloride) 100 mls @ 100 mls/hr IVPB Q6H [facility] Last Admin: 03/26/17 13:31 Dose: 100 mls/hr Insulin Aspart (Novolog) 0 unit SC ACHS [facility] PRN Reason: Protocol Last Admin: 03/26/17 11:30 Dose: Not Given Insulin Glargine (Lantus) 10 unit SC DAILY [facility] Last Admin: 03/26/17 09:37 Dose: 10 u Mupirocin (Bactroban Ointment) 0 gm TOP BID [facility] Last Admin: 03/26/17 09:36 Dose: 1 applic Pantoprazole Sodium (Protonix Ec Tab) 40 mg PO DAILY [facility] Last Admin: 03/26/17 09:34 Dose: 40 mg Fluticasone/Salmeterol (Advair Diskus 100/50) 1 puff IH RQD [facility] Last Admin: 03/22/17 10:27 Dose: 1 puff - Labs Labs: 03/26/17 06:03 03/26/17 06:03 PT 15.8 SECONDS (9.7-12.2) H 03/25/17 06:16 INR 1.4 03/25/17 06:16 APTT 32 SECONDS (21-34) 03/26/17 06:03 - Constitutional Appears: No Acute Distress - Eye Exam Eye Exam: EOMI, PERRL - Neck Exam Neck Exam: absent: Lymphadenopathy, Thyromegaly - Respiratory Exam Respiratory Exam: NORMAL BREATHING PATTERN. absent: Rales, Rhonchi, Wheezes - Cardiovascular Exam Cardiovascular Exam: REGULAR RHYTHM, +S1, +S2. absent: Gallop, Rubs, Murmur - GI/Abdominal Exam GI & Abdominal Exam: Distended, Soft, Normal Bowel Sounds. absent: Tenderness, Organomegaly - Rectal Exam Rectal Exam: Deferred - Extremities Exam Extremities Exam: Pedal Edema. absent: Calf Tenderness Assessment and Plan (1) Anemia Assessment & Plan: Patient still has not shown any signs of overt GI bleeding. The HGB is 8.2 and he will receive another unit of PRBCs. Recommend diagnostic paracentesis to rule out hemoperitoneum prior to resuming Xarelto. Status: Acute
[2017-03-27] MEDS: Albuterol-Ipratrop 3 mg / 0.5 (3 ml) UD INH SCH ×3 (00:48→16:19)
[2017-03-27] MEDS: Imipenem/Cilastatin 250 MG in Sodium Chloride 100 ML IVPB SCH ×3 (05:23→17:25)
[2017-03-27 06:46] LABS: BASO % 0.6 % (0.0-2.0); EOS # 0.3 K/uL (0.0-0.7); EOS % 4.2 % (0.0-4.0); HEMOGLOBIN 9.6 g/dL (12.0-18.0); LYMPH # 0.8 K/uL (1.0-4.3); LYMPH % 11.5 % (20.0-40.0); MEAN CELL VOLUME 84.8 fL (80.0-94.0); MEAN CORPUSCULAR HEMOGLOBIN 26.9 pg (27.0-31.0); MEAN CORPUSCULAR HGB CONC 31.8 g/dL (33.0-37.0); MEAN PLATELET VOLUME 8.4 fL (7.2-11.7); MONO # 0.5 K/uL (0.0-0.8); MONO % 7.2 % (0.0-10.0); NEUT # 5.4 K/uL (1.8-7.0); NEUT % 76.5 % (50.0-75.0); RBC 3.56 Mil/uL (4.40-5.90); RED CELL DISTRIBUTION WIDTH 17.3 % (11.5-14.5)
[2017-03-27 06:50] LABS: INR 1.4; PROTHROMBIN TIME 15.4 SECONDS (9.7-12.2)
[2017-03-27 06:57] LABS: ALBUMIN 2.9 g/dL (3.5-5.0)
[2017-03-27 07:00] LABS: ALB/GLOB RATIO 0.7 (1.0-2.1)
[2017-03-27 07:01] LABS: CALCIUM 8.5 mg/dl (8.6-10.4)
[2017-03-27] MEDS: (Novolog) Insulin Aspart, Recombinant 100 u/ml 10 ml vial SC SCH ×4 (07:45→21:40)
--- NOTE | 2017-03-27 09:09 | CP.PCM.PN ---
<Lydia Grullon - Last Filed: 03/27/17 17:37> Subjective - Date & Time of Evaluation Date of Evaluation: 03/27/17 Time of Evaluation: 09:00 - Subjective Subjective: Medicine Note (PGY 1): Dr. Leonard's service Patient was seen and examined at bedside in the AM. Patient states his shortness of breath has improved. Patient states he has an ongoing cough without phlegm production. Patient states he was able to eat most of his breakfast. Patient denies fever, chest pain, nausea, vomiting, diarrhea, or constipation. Objective - Vital Signs/Intake and Output Vital Signs (last 24 hours): Temp Pulse Resp BP Pulse Ox 97.6 F 99 H 18 97/70 L 96 03/27/17 04:00 03/27/17 04:00 03/27/17 04:00 03/27/17 06:00 03/27/17 04:00 Intake and Output: 03/27/17 03/27/17 06:59 18:59 Intake Total 500 Output Total 600 Balance -100 - Medications Medications: Current Medications Albuterol/Ipratropium (Duoneb 3 Mg/0.5 Mg (3 Ml) Ud) 3 ml INH RQ8 [facility] Last Admin: 03/27/17 07:51 Dose: 3 ml Amiodarone HCl (Cordarone) 200 mg PO DAILY [facility] Last Admin: 03/26/17 09:34 Dose: 200 mg Cilostazol (Pletal) 100 mg PO BID [facility] Last Admin: 03/26/17 19:32 Dose: 100 mg Collagenase (Santyl) 1 gm TOP DAILY [facility] Last Admin: 03/26/17 09:36 Dose: 1 applic Docusate Sodium (Colace) 100 mg PO DAILY [facility] Last Admin: 03/26/17 09:35 Dose: 100 mg Ferrous Sulfate (Feosol) 325 mg PO BID [facility] Last Admin: 03/26/17 17:41 Dose: 325 mg Furosemide (Lasix) 20 mg IVP ONCE PRN PRN Reason: Cough and congestion Last Admin: 03/26/17 20:00 Dose: 20 mg Gabapentin (Neurontin) 100 mg PO BID [facility] Last Admin: 03/26/17 17:41 Dose: 100 mg Guaifenesin (Mucinex La) 600 mg PO BID [facility] Last Admin: 06/28/17 17:41 Dose: 600 mg Heparin Sodium (Porcine) (Heparin) 5,000 units SC Q12 [facility] Last Admin: 03/26/17 21:50 Dose: 5,000 units Fluconazole (Diflucan Iv 200 Mg/100 Ml Ns) 100 mls @ 100 mls/hr IVPB DAILY [facility] Stop: 04/04/17 10:59 Last Admin: 03/26/17 11:38 Dose: 100 mls/hr Imipenem/Cilastatin Sodium 250 (mg/ Sodium Chloride) 100 mls @ 100 mls/hr IVPB Q6H [facility] Last Admin: 03/27/17 05:23 Dose: 100 mls/hr Insulin Aspart (Novolog) 0 unit SC ACHS [facility] PRN Reason: Protocol Last Admin: 03/26/17 22:00 Dose: Not Given Insulin Glargine (Lantus) 10 unit SC DAILY [facility] Last Admin: 03/26/17 09:37 Dose: 10 u Mupirocin (Bactroban Ointment) 0 gm TOP BID [facility] Last Admin: 03/26/17 18:00 Dose: Not Given Pantoprazole Sodium (Protonix Ec Tab) 40 mg PO DAILY [facility] Last Admin: 03/26/17 09:34 Dose: 40 mg Fluticasone/Salmeterol (Advair Diskus 100/50) 1 puff IH RQD [facility] Last Admin: 03/26/17 10:41 Dose: Not Given - Labs Labs: 03/27/17 06:31 03/27/17 06:31 PT 15.4 SECONDS (9.7-12.2) H 03/27/17 06:31 INR 1.4 03/27/17 06:31 APTT 32 SECONDS (21-34) 03/26/17 06:03 - Constitutional Appears: No Acute Distress - Head Exam Head Exam: NORMAL INSPECTION - Eye Exam Eye Exam: Normal appearance - ENT Exam ENT Exam: Mucous Membranes Moist - Respiratory Exam Respiratory Exam: Clear to Ausculation Bilateral, NORMAL BREATHING PATTERN - Cardiovascular Exam Cardiovascular Exam: REGULAR RHYTHM, +S1, +S2, Murmur (Systolic Murmur: Midsystolic crescendo-decrescendo murmur ). absent: JVD - GI/Abdominal Exam GI & Abdominal Exam: Distended, Soft, Normal Bowel Sounds. absent: Tenderness - Exam Additional comments: Patient has Flores - no blood noted - Extremities Exam Extremities Exam: Pedal Edema (Pitting edema +3 up extending to patient's scrotum ) - Neurological Exam Neurological Exam: Alert, Awake, Oriented x3 Assessment and Plan - Assessment and Plan (Free Text) Plan: 1.) Acute Anemia H/H (03/27): 9.6/30.2; H/H (03/26): 8.2/25.9 Iron: 36, TIBC: 285, %14, Ferritin: 48.5 Endoscopy (03/21): monillial esophagitis. Cells for cytology obtained. Erosive gastropahty. Normal examined duodenum-->negative cytology cells Patient has had 3 units of PRBC transfused during hospitalization Consult: Dr. Ag (GI) on board-->help appreciated---> can patient start anticoagulation? CT Abd/pelvis: no evidence of intraperitoneal hemorrhage or retroperitoneal hemorrhage Ferrous sulfate 325mg PO BID 2.) Acute exacerbation of Congestive Heart Failure Consult: Dr. Canales (Cardiology) on board-->help appreciated Echocardiogram (03/21/17): left ventricle systolic function is severely impaired , EF: 25%, spetal motion consistent with post operative state. Global hypokinesis of the left ventricle. Grade II-pseudonormal filling. Severe valvuar aortic stenosis. Mitral regurgitation is moderate. Severe pulmonary hypertension Per cardiology, patient is not a surgical candidate for aortic stenosis Amiodarone 200mg PO daily Lasic 20mg IVP ONCE PRN f/u Chest X-ray 3.) Ascites Possibly secondary to CHF and Acute Kidney Injury Intervential Radiology Consult, Dr. rFanco Skaggs --> Help Appreciated Paracentesis performed 03/27/17: removed 2L of dark yellow fluid - f/u LDH of peritoneal fluid - f/u glucose of peritoneal fluid - f/u albumin of peritoneal fluid - f/u body fluid culture/smear of peritoneal fluid 4.) Atrial fibrillation Amiodarone 200mg PO daily patient is off Xarelto secondary to GI workup r/o bleed 5.) Acute Kidney Injury Consult: Dr. Reynolds (nephrology) on board-->help appreciated Improving Off lasix/juan jose/arb/statin 6.) Hypertension Patient is borderline hypotensive. 7.) History of CABG Continue medical management as per cardiology. 8.) Diabetes Mellitus with hyperglycemia Hgba1c: 7.2 Lantus 10 units subq daily 9.) Hyperlipidemia off statin 10.) Peripheral vascular disease Patient is on Pletal 100mg PO BID 11.) Esophageal Candidiasis On Diflucan 200mg IV q daily (active since 03/22/17) 12.) Urinary Tract Infection due to extended spectrum beta lactamase (ESBL) producing Escherichia coli primaxin 250mg IV 6 hours (active since 03/22/17) urine culture (03/20/17): +ESBL f/u Repeat Urine Culture 13.) Chronic Cough Non-phlegm producing Started 03/27 on Phenergan/Codeine Oral Syrup 5ml PO Q4 PRN 14.) Prophylaxis Protonix 40mg PO daily Discontinued heparin 5000 units subq 12 hours PT/OT evaluation 03/27/17: RN deferred because patient was going to have tapping of the belly. Palliative Care Consult placed on 03/27/17 <Noemí Leonard V - Last Filed: 04/06/17 20:45> Objective - Vital Signs/Intake and Output Vital Signs (last 24 hours): Temp Pulse Resp BP Pulse Ox 96.4 F L 84 13 95/59 L 100 04/06/17 20:00 04/06/17 19:17 04/06/17 19:17 04/06/17 19:17 04/06/17 19:17 Intake and Output: 04/06/17 04/07/17 18:59 06:59 Intake Total 1831.3 188.4 Output Total 1325 50 Balance 506.3 138.4 - Medications Medications: Current Medications Acetylcysteine (Acetylcysteine 20%) 4 ml INH RQ8 [facility] Last Admin: 04/06/17 07:36 Dose: 4 ml Albuterol/Ipratropium (Duoneb 3 Mg/0.5 Mg (3 Ml) Ud) 3 ml INH RQ6 [facility] Last Admin: 04/06/17 13:22 Dose: Not Given Cilostazol (Pletal) 100 mg PO BID [facility] Last Admin: 04/06/17 17:54 Dose: 100 mg Collagenase (Santyl) 1 gm TOP DAILY [facility] Last Admin: 04/06/17 09:40 Dose: 1 applic Famotidine (Pepcid) 20 mg PO DAILY [facility] Last Admin: 04/06/17 09:32 Dose: 20 mg Heparin Sodium (Porcine) (Heparin) 5,000 units SC Q8 [facility] Last Admin: 04/06/17 13:20 Dose: 5,000 units Imipenem/Cilastatin Sodium 250 (mg/ Sodium Chloride) 100 mls @ 100 mls/hr IVPB Q12 [facility] Last Admin: 04/06/17 09:26 Dose: 100 mls/hr Dexmedetomidine HCl 200 mcg/ (Sodium Chloride) 50 mls @ 4.37 mls/hr IV TITR PRN ; Protocol; 0.2 MCG/KG/HR PRN Reason: Sedation Last Admin: 04/06/17 14:06 Dose: 0.3 mcg/kg/hr, 6.56 mls/hr Dextrose (Dextrose 10% In Water) 500 mls @ 40 mls/hr IV .[id number] [facility] Last Admin: 04/06/17 18:07 Dose: Not Given Norepinephrine Bitartrate 8 mg (/ Dextrose) 258 mls @ 7.74 mls/hr IV .Q24H PRN ; Protocol; 4 MCG/MIN PRN Reason: TITRATE PER MD ORDER Last Titration: 04/06/17 20:00 Dose: 15 mcg/min, 29.02 mls/hr Insulin Aspart (Novolog) 0 unit SC Q6H [facility] PRN Reason: Protocol Last Admin: 04/06/17 18:29 Dose: Not Given Mupirocin (Bactroban Ointment) 0 gm TOP BID [facility] Last Admin: 04/06/17 17:54 Dose: 1 applic Fluticasone/Salmeterol (Advair Diskus 100/50) 1 puff IH RQD [facility] Last Admin: 04/06/17 07:34 Dose: Not Given - Labs Labs: 04/05/17 06:46 04/05/17 06:46 PT 15.4 SECONDS (9.7-12.2) H 03/27/17 06:31 INR 1.4 03/27/17 06:31 APTT 32 SECONDS (21-34) 03/26/17 06:03 Attending/Attestation - Attestation I have personally seen and examined this patient.: Yes I have fully participated in the care of the patient.: Yes I have reviewed all pertinent clinical information, including history, physical exam and plan: Yes Notes (Text): This is late computer entry for 03/27/17. Patient seen, examined and case discussed with day-engineer intern. Patient's hemoglobin improved following 1 unit of PRBC from day before. Patient to undergo IR paracentesis today Patient is off anticoagulation given anemia work up. Patient is off anti-hypertensives given low normal blood pressure Re-consulted Palliative care for goals of care Assessment/Plan (1) Anemia--r/o GI cause of blood loss (2) Acute exacerbation of systolic CHF (congestive heart failure); EF: 25%--> off anti-hypertensive secondary to borderline low blood pressure (3) Atrial fibrillation on amiodarone; off Xalreto secondary to anemia workup (4) LETICIA (acute kidney injury)-->Nephrology on board (5) HTN (hypertension) (6) Hx of CABG (7) Diabetes mellitus with hyperglycemia (8) Hyperlipidemia (9) Peripheral vascular disease (10) Esophageal candidiasis- on IV antifungal therapy (11) UTI due to extended-spectrum beta lactamase (ESBL) producing Escherichia coli- on IV abx
[2017-03-27] MEDS: guaiFENesin 600 mg ER Tab PO SCH ×2 (09:16→17:19)
[2017-03-27] MEDS: Pantoprazole 40 mg EC Tab PO SCH (09:16)
[2017-03-27] MEDS: (Lantus) Insulin Glargine, Recombinant SC SCH (09:17)
[2017-03-27] MEDS: Fluconazole IV 200mg/100 ml NS 100 ML IVPB SCH (09:17)
[2017-03-27] MEDS: Cilostazol 100 mg Tab UD PO SCH ×2 (09:30→17:19)
[2017-03-27] MEDS: Collagenase 250 Units/gm Ointment(30 gm) TOP SCH (09:44)
--- NOTE | 2017-03-27 12:29 | PCM.SURG1 ---
Surgeon's Initial Post Op Note - Surgeon's Notes Surgeon: Franco Skaggs MD Adjuster Leader: none Type of Anesthesia: Local Pre-Operative Diagnosis: Ascites Operative Findings: US showed moderate ascites Post-Operative Diagnosis: Ascites Operation Performed: US guided paracentesis. Specimen/Specimens Removed: 2 l of dark yellow fluid Estimated Blood Loss: EBL {In ML}: 0 Blood Products Given: N/A Drains Used: No Drains, Wound Vac Post-Op Condition: Fair Date of Surgery/Procedure: 03/27/17 Time of Surgery/Procedure: 12:25
[2017-03-27 13:53] LABS: BODY FLUID TYPE PERITONEAL/ASCITES
--- NOTE | 2017-03-27 14:02 | US ---
Date of Procedure: PROCEDURE: Ultrasound-guided paracentesis, CPT 14146 Medications: 7cc 1% Lidocaine HISTORY: Ascites, abdominal pain, TECHNIQUE: Following informed consent , the patient was placed supine on the stretcher and the site was marked. A limited abdominal ultrasound was performed that showed a large amount of intra-abdominal fluid. Procedural time out was called and the Pt's abdomen was marked and prepped and draped in the usual sterile fashion. Ultrasound-guided large volume paracentesis performed. A total of 2 liters of yellow colored fluid was removed without complication. Fluid specimen was sent for culture, sensitivity, cytology and chemistries. IMPRESSION: Ultrasound-guided paracentesis.
[2017-03-27 14:59] LABS: BF GROSS APPEARANCE CLEAR (CLEAR)
[2017-03-27 15:00] LABS: BODY FLUID MONO/MACROPHAGE 5 % (0-0); BODY FLUID TOTAL COUNT 100 (0-0)
--- NOTE | 2017-03-27 19:56 | CP.PCM.PN ---
Subjective - Date & Time of Evaluation Date of Evaluation: 03/27/17 Time of Evaluation: 19:55 - Subjective Subjective: seen and examined comfortable, denies sob for paracentesis today labs noted Objective - Vital Signs/Intake and Output Vital Signs (last 24 hours): Temp Pulse Resp BP Pulse Ox 98.1 F 106 H 20 90/65 L 96 03/27/17 12:00 03/27/17 19:06 03/27/17 19:06 03/27/17 19:06 03/27/17 04:00 Intake and Output: 03/27/17 03/28/17 18:59 06:59 Intake Total 725 Output Total 350 Balance 725 -350 - Medications Medications: Current Medications Albuterol/Ipratropium (Duoneb 3 Mg/0.5 Mg (3 Ml) Ud) 3 ml INH RQ8 [facility] Last Admin: 03/27/17 16:19 Dose: 3 ml Amiodarone HCl (Cordarone) 200 mg PO DAILY [facility] Last Admin: 03/27/17 09:16 Dose: 200 mg Cilostazol (Pletal) 100 mg PO BID [facility] Last Admin: 03/27/17 17:19 Dose: 100 mg Collagenase (Santyl) 1 gm TOP DAILY [facility] Last Admin: 03/27/17 09:44 Dose: 1 applic Docusate Sodium (Colace) 100 mg PO DAILY [facility] Last Admin: 03/27/17 09:16 Dose: 100 mg Ferrous Sulfate (Feosol) 325 mg PO BID [facility] Last Admin: 03/27/17 17:21 Dose: 325 mg Furosemide (Lasix) 20 mg IVP ONCE PRN PRN Reason: Cough and congestion Last Admin: 03/26/17 20:00 Dose: 20 mg Gabapentin (Neurontin) 100 mg PO BID [facility] Last Admin: 03/27/17 17:19 Dose: 100 mg Guaifenesin (Mucinex La) 600 mg PO BID [facility] Last Admin: 03/27/17 17:19 Dose: 600 mg Fluconazole (Diflucan Iv 200 Mg/100 Ml Ns) 100 mls @ 100 mls/hr IVPB DAILY [facility] Stop: 04/04/17 10:59 Last Admin: 03/27/17 09:17 Dose: 100 mls/hr Imipenem/Cilastatin Sodium 250 (mg/ Sodium Chloride) 100 mls @ 100 mls/hr IVPB Q6H [facility] Last Admin: 03/27/17 17:25 Dose: 100 mls/hr Insulin Aspart (Novolog) 0 unit SC ACHS [facility] PRN Reason: Protocol Last Admin: 03/27/17 17:19 Dose: 2 unit Insulin Glargine (Lantus) 10 unit SC DAILY [facility] Last Admin: 03/27/17 09:17 Dose: 10 u Mupirocin (Bactroban Ointment) 0 gm TOP BID [facility] Last Admin: 03/27/17 17:22 Dose: 1 applic Pantoprazole Sodium (Protonix Ec Tab) 40 mg PO DAILY [facility] Last Admin: 03/27/17 09:16 Dose: 40 mg Promethazine HCl/Codeine (Phenergan/Codeine Oral Syrup) 5 ml PO Q4 PRN PRN Reason: Cough Fluticasone/Salmeterol (Advair Diskus 100/50) 1 puff IH RQD [facility] Last Admin: 03/26/17 10:41 Dose: Not Given - Labs Labs: 03/27/17 06:31 03/27/17 06:31 PT 15.4 SECONDS (9.7-12.2) H 03/27/17 06:31 INR 1.4 03/27/17 06:31 APTT 32 SECONDS (21-34) 03/26/17 06:03 - Constitutional Appears: Non-toxic, In Acute Distress - Head Exam Head Exam: NORMAL INSPECTION - Eye Exam Eye Exam: Normal appearance - ENT Exam ENT Exam: Mucous Membranes Moist, Normal Exam - Neck Exam Neck Exam: Normal Inspection - Respiratory Exam Respiratory Exam: Clear to Ausculation Bilateral, NORMAL BREATHING PATTERN - Cardiovascular Exam Cardiovascular Exam: RRR - GI/Abdominal Exam GI & Abdominal Exam: Distended, Soft - Extremities Exam Extremities Exam: Pedal Edema Assessment and Plan (1) LETICIA (acute kidney injury) Status: Acute (2) Acute exacerbation of CHF (congestive heart failure) Status: Acute (3) Shortness of breath Status: Acute (4) CHF (congestive heart failure) Status: Chronic (5) A-fib Status: Acute (6) GI bleed Status: Acute (7) HTN (hypertension) Status: Acute - Assessment and Plan (Free Text) Assessment: renal function stable recommend lasix if bp tolerates
[2017-03-28] MEDS: Imipenem/Cilastatin 250 MG in Sodium Chloride 100 ML IVPB SCH ×5 (00:52→23:36)
[2017-03-28] MEDS: Albuterol-Ipratrop 3 mg / 0.5 (3 ml) UD INH SCH ×3 (01:12→15:46)
[2017-03-28 06:40] LABS: BASO # 0.1 K/uL (0.0-0.2); BASO % 0.8 % (0.0-2.0); EOS # 0.3 K/uL (0.0-0.7); EOS % 4.4 % (0.0-4.0); HEMOGLOBIN 9.3 g/dL (12.0-18.0); LYMPH # 0.7 K/uL (1.0-4.3); LYMPH % 9.3 % (20.0-40.0); MEAN CELL VOLUME 85.2 fL (80.0-94.0); MEAN CORPUSCULAR HEMOGLOBIN 27.1 pg (27.0-31.0); MEAN CORPUSCULAR HGB CONC 31.8 g/dL (33.0-37.0); MEAN PLATELET VOLUME 8.9 fL (7.2-11.7); MONO # 0.6 K/uL (0.0-0.8); MONO % 7.5 % (0.0-10.0); NEUT # 5.9 K/uL (1.8-7.0); PLATELET COUNT 261 K/uL (130-400); RBC 3.44 Mil/uL (4.40-5.90); RED CELL DISTRIBUTION WIDTH 17.7 % (11.5-14.5); WHITE BLOOD COUNT 7.6 K/uL (4.8-10.8)
[2017-03-28 06:50] LABS: ALBUMIN 2.7 g/dL (3.5-5.0)
[2017-03-28 06:54] LABS: ALB/GLOB RATIO 0.7 (1.0-2.1); CALCIUM 8.4 mg/dl (8.6-10.4)
--- NOTE | 2017-03-28 07:24 | CP.PCM.PN ---
Subjective - Date & Time of Evaluation Date of Evaluation: 03/28/17 Time of Evaluation: 07:21 - Subjective Subjective: Patient denies having nausea, vomiting, abdominal pain. He has not had a bowel movement so far today. Objective - Vital Signs/Intake and Output Vital Signs (last 24 hours): Temp Pulse Resp BP Pulse Ox 98.5 F 106 H 20 90/65 L 96 03/28/17 04:00 03/27/17 19:06 03/27/17 19:06 03/27/17 19:06 03/27/17 04:00 Intake and Output: 03/28/17 03/28/17 06:59 18:59 Intake Total 440 Output Total 850 Balance -410 - Medications Medications: Current Medications Albuterol/Ipratropium (Duoneb 3 Mg/0.5 Mg (3 Ml) Ud) 3 ml INH RQ8 [facility] Last Admin: 03/28/17 01:12 Dose: 3 ml Amiodarone HCl (Cordarone) 200 mg PO DAILY [facility] Last Admin: 03/27/17 09:16 Dose: 200 mg Cilostazol (Pletal) 100 mg PO BID [facility] Last Admin: 03/27/17 17:19 Dose: 100 mg Collagenase (Santyl) 1 gm TOP DAILY [facility] Last Admin: 03/27/17 09:44 Dose: 1 applic Docusate Sodium (Colace) 100 mg PO DAILY [facility] Last Admin: 03/27/17 09:16 Dose: 100 mg Ferrous Sulfate (Feosol) 325 mg PO BID [facility] Last Admin: 03/27/17 17:21 Dose: 325 mg Furosemide (Lasix) 20 mg IVP ONCE PRN PRN Reason: Cough and congestion Last Admin: 03/26/17 20:00 Dose: 20 mg Gabapentin (Neurontin) 100 mg PO BID [facility] Last Admin: 03/27/17 17:19 Dose: 100 mg Guaifenesin (Mucinex La) 600 mg PO BID [facility] Last Admin: 03/27/17 17:19 Dose: 600 mg Fluconazole (Diflucan Iv 200 Mg/100 Ml Ns) 100 mls @ 100 mls/hr IVPB DAILY [facility] Stop: 04/04/17 10:59 Last Admin: 03/27/17 09:17 Dose: 100 mls/hr Imipenem/Cilastatin Sodium 250 (mg/ Sodium Chloride) 100 mls @ 100 mls/hr IVPB Q6H [facility] Last Admin: 03/28/17 05:34 Dose: 100 mls/hr Insulin Aspart (Novolog) 0 unit SC ACHS [facility] PRN Reason: Protocol Last Admin: 03/27/17 21:40 Dose: Not Given Insulin Glargine (Lantus) 10 unit SC DAILY [facility] Last Admin: 03/27/17 09:17 Dose: 10 u Mupirocin (Bactroban Ointment) 0 gm TOP BID [facility] Last Admin: 03/27/17 17:22 Dose: 1 applic Pantoprazole Sodium (Protonix Ec Tab) 40 mg PO DAILY [facility] Last Admin: 03/27/17 09:16 Dose: 40 mg Promethazine HCl/Codeine (Phenergan/Codeine Oral Syrup) 5 ml PO Q4 PRN PRN Reason: Cough Fluticasone/Salmeterol (Advair Diskus 100/50) 1 puff IH RQD [facility] Last Admin: 03/26/17 10:41 Dose: Not Given - Labs Labs: 03/28/17 06:22 03/28/17 06:22 PT 15.4 SECONDS (9.7-12.2) H 03/27/17 06:31 INR 1.4 03/27/17 06:31 APTT 32 SECONDS (21-34) 03/26/17 06:03 - Constitutional Appears: No Acute Distress - Head Exam Head Exam: ATRAUMATIC, NORMOCEPHALIC - Eye Exam Eye Exam: EOMI, PERRL - Neck Exam Neck Exam: absent: Lymphadenopathy, Thyromegaly - Respiratory Exam Respiratory Exam: NORMAL BREATHING PATTERN. absent: Rales, Rhonchi, Wheezes - Cardiovascular Exam Cardiovascular Exam: REGULAR RHYTHM, +S1, +S2. absent: Gallop, Rubs, Murmur - GI/Abdominal Exam GI & Abdominal Exam: Distended, Soft, Normal Bowel Sounds. absent: Tenderness, Mass, Organomegaly - Rectal Exam Rectal Exam: absent: Deferred - Extremities Exam Extremities Exam: Pedal Edema. absent: Calf Tenderness Assessment and Plan (1) Anemia Assessment & Plan: Hemoglobin is stable at 9.3. Paracentesis was performed and did not suggest hemoperitoneum. The total PMN count on the fluid was 216, which is below the threshold for SBP. Plan is for colonoscopy when stable and cleared by cardiology. Status: Acute
[2017-03-28] MEDS: (Novolog) Insulin Aspart, Recombinant 100 u/ml 10 ml vial SC SCH ×4 (07:30→21:41)
--- NOTE | 2017-03-28 07:44 | CP.PCM.PN ---
Subjective - Date & Time of Evaluation Date of Evaluation: 03/27/17 Time of Evaluation: 11:00 - Subjective Subjective: patient has no new complaints. Objective - Vital Signs/Intake and Output Vital Signs (last 24 hours): Temp Pulse Resp BP Pulse Ox 98.5 F 106 H 20 90/65 L 96 03/28/17 04:00 03/27/17 19:06 03/27/17 19:06 03/27/17 19:06 03/27/17 04:00 Intake and Output: 03/28/17 03/28/17 06:59 18:59 Intake Total 440 Output Total 850 Balance -410 - Medications Medications: Current Medications Albuterol/Ipratropium (Duoneb 3 Mg/0.5 Mg (3 Ml) Ud) 3 ml INH RQ8 [facility] Last Admin: 03/28/17 01:12 Dose: 3 ml Amiodarone HCl (Cordarone) 200 mg PO DAILY [facility] Last Admin: 03/27/17 09:16 Dose: 200 mg Cilostazol (Pletal) 100 mg PO BID [facility] Last Admin: 03/27/17 17:19 Dose: 100 mg Collagenase (Santyl) 1 gm TOP DAILY [facility] Last Admin: 03/27/17 09:44 Dose: 1 applic Docusate Sodium (Colace) 100 mg PO DAILY [facility] Last Admin: 03/27/17 09:16 Dose: 100 mg Ferrous Sulfate (Feosol) 325 mg PO BID [facility] Last Admin: 03/27/17 17:21 Dose: 325 mg Furosemide (Lasix) 20 mg IVP ONCE PRN PRN Reason: Cough and congestion Last Admin: 03/26/17 20:00 Dose: 20 mg Gabapentin (Neurontin) 100 mg PO BID [facility] Last Admin: 03/27/17 17:19 Dose: 100 mg Guaifenesin (Mucinex La) 600 mg PO BID [facility] Last Admin: 03/27/17 17:19 Dose: 600 mg Fluconazole (Diflucan Iv 200 Mg/100 Ml Ns) 100 mls @ 100 mls/hr IVPB DAILY [facility] Stop: 04/04/17 10:59 Last Admin: 03/27/17 09:17 Dose: 100 mls/hr Imipenem/Cilastatin Sodium 250 (mg/ Sodium Chloride) 100 mls @ 100 mls/hr IVPB Q6H [facility] Last Admin: 03/28/17 05:34 Dose: 100 mls/hr Insulin Aspart (Novolog) 0 unit SC ACHS [facility] PRN Reason: Protocol Last Admin: 03/27/17 21:40 Dose: Not Given Insulin Glargine (Lantus) 10 unit SC DAILY [facility] Last Admin: 03/27/17 09:17 Dose: 10 u Mupirocin (Bactroban Ointment) 0 gm TOP BID [facility] Last Admin: 03/27/17 17:22 Dose: 1 applic Pantoprazole Sodium (Protonix Ec Tab) 40 mg PO DAILY [facility] Last Admin: 03/27/17 09:16 Dose: 40 mg Promethazine HCl/Codeine (Phenergan/Codeine Oral Syrup) 5 ml PO Q4 PRN PRN Reason: Cough Fluticasone/Salmeterol (Advair Diskus 100/50) 1 puff IH RQD [facility] Last Admin: 03/26/17 10:41 Dose: Not Given - Labs Labs: 03/28/17 06:22 03/28/17 06:22 PT 15.4 SECONDS (9.7-12.2) H 03/27/17 06:31 INR 1.4 03/27/17 06:31 APTT 32 SECONDS (21-34) 03/26/17 06:03 - Constitutional Appears: Chronically Ill - Head Exam Head Exam: NORMAL INSPECTION - Eye Exam Eye Exam: Normal appearance - ENT Exam ENT Exam: Mucous Membranes Moist - Neck Exam Neck Exam: Full ROM - Respiratory Exam Respiratory Exam: Decreased Breath Sounds - Cardiovascular Exam Cardiovascular Exam: Irregular Rhythm - GI/Abdominal Exam GI & Abdominal Exam: Distended, Normal Bowel Sounds - Rectal Exam Rectal Exam: Deferred - Extremities Exam Extremities Exam: Pedal Edema - Back Exam Back Exam: NORMAL INSPECTION - Neurological Exam Neurological Exam: Alert - Psychiatric Exam Psychiatric exam: Normal Affect - Skin Skin Exam: Normal Color Assessment and Plan (1) Acute exacerbation of CHF (congestive heart failure) Assessment & Plan: will continue current medical management Status: Acute (2) Anemia Assessment & Plan: s/p transfusion Status: Acute (3) A-fib Assessment & Plan: rate cotrol. consideration for anticaogulation Status: Acute (4) Aortic stenosis Assessment & Plan: not a candidate for valve replacement Status: Acute
--- NOTE | 2017-03-28 08:18 | CP.PCM.PN ---
Subjective - Date & Time of Evaluation Date of Evaluation: 03/28/17 Time of Evaluation: 08:00 - Subjective Subjective: patient has no chest pain or dyspnea. Objective - Vital Signs/Intake and Output Vital Signs (last 24 hours): Temp Pulse Resp BP Pulse Ox 98.5 F 106 H 20 90/65 L 96 03/28/17 04:00 03/27/17 19:06 03/27/17 19:06 03/27/17 19:06 03/27/17 04:00 Intake and Output: 03/28/17 03/28/17 06:59 18:59 Intake Total 440 Output Total 850 Balance -410 - Medications Medications: Current Medications Albuterol/Ipratropium (Duoneb 3 Mg/0.5 Mg (3 Ml) Ud) 3 ml INH RQ8 [facility] Last Admin: 03/28/17 01:12 Dose: 3 ml Amiodarone HCl (Cordarone) 200 mg PO DAILY [facility] Last Admin: 03/27/17 09:16 Dose: 200 mg Cilostazol (Pletal) 100 mg PO BID [facility] Last Admin: 03/27/17 17:19 Dose: 100 mg Collagenase (Santyl) 1 gm TOP DAILY [facility] Last Admin: 03/27/17 09:44 Dose: 1 applic Docusate Sodium (Colace) 100 mg PO DAILY [facility] Last Admin: 03/27/17 09:16 Dose: 100 mg Ferrous Sulfate (Feosol) 325 mg PO BID [facility] Last Admin: 03/27/17 17:21 Dose: 325 mg Furosemide (Lasix) 20 mg IVP ONCE PRN PRN Reason: Cough and congestion Last Admin: 03/26/17 20:00 Dose: 20 mg Gabapentin (Neurontin) 100 mg PO BID [facility] Last Admin: 03/27/17 17:19 Dose: 100 mg Guaifenesin (Mucinex La) 600 mg PO BID [facility] Last Admin: 03/27/17 17:19 Dose: 600 mg Fluconazole (Diflucan Iv 200 Mg/100 Ml Ns) 100 mls @ 100 mls/hr IVPB DAILY [facility] Stop: 04/04/17 10:59 Last Admin: 03/27/17 09:17 Dose: 100 mls/hr Imipenem/Cilastatin Sodium 250 (mg/ Sodium Chloride) 100 mls @ 100 mls/hr IVPB Q6H [facility] Last Admin: 03/28/17 05:34 Dose: 100 mls/hr Insulin Aspart (Novolog) 0 unit SC ACHS [facility] PRN Reason: Protocol Last Admin: 03/27/17 21:40 Dose: Not Given Insulin Glargine (Lantus) 10 unit SC DAILY [facility] Last Admin: 03/27/17 09:17 Dose: 10 u Mupirocin (Bactroban Ointment) 0 gm TOP BID [facility] Last Admin: 03/27/17 17:22 Dose: 1 applic Pantoprazole Sodium (Protonix Ec Tab) 40 mg PO DAILY [facility] Last Admin: 03/27/17 09:16 Dose: 40 mg Promethazine HCl/Codeine (Phenergan/Codeine Oral Syrup) 5 ml PO Q4 PRN PRN Reason: Cough Fluticasone/Salmeterol (Advair Diskus 100/50) 1 puff IH RQD [facility] Last Admin: 03/26/17 10:41 Dose: Not Given - Labs Labs: 03/28/17 06:22 03/28/17 06:22 PT 15.4 SECONDS (9.7-12.2) H 03/27/17 06:31 INR 1.4 03/27/17 06:31 APTT 32 SECONDS (21-34) 03/26/17 06:03 - Constitutional Appears: Chronically Ill - Head Exam Head Exam: NORMAL INSPECTION - Eye Exam Eye Exam: Normal appearance - ENT Exam ENT Exam: Mucous Membranes Moist - Neck Exam Neck Exam: Full ROM - Respiratory Exam Respiratory Exam: Decreased Breath Sounds - Cardiovascular Exam Cardiovascular Exam: Tachycardia, REGULAR RHYTHM - GI/Abdominal Exam GI & Abdominal Exam: Normal Bowel Sounds - Rectal Exam Rectal Exam: Deferred - Extremities Exam Extremities Exam: Pedal Edema - Back Exam Back Exam: NORMAL INSPECTION - Neurological Exam Neurological Exam: Alert - Psychiatric Exam Psychiatric exam: Normal Affect - Skin Skin Exam: Normal Color Assessment and Plan (1) Acute exacerbation of CHF (congestive heart failure) Assessment & Plan: restart Coreg. follow urine output Status: Acute (2) Anemia Assessment & Plan: follow Hgb Status: Acute (3) A-fib Assessment & Plan: will continue amiodarone Status: Acute (4) Aortic stenosis Assessment & Plan: not a candidate for valve replacement Status: Acute
[2017-03-28 08:19] LABS: ANISOCYTOSIS SLIGHT; EOSINOPHIL 2 % (0-4); LYMPHOCYTE 13 % (20-40); MONOCYTE 6 % (0-10); NEUTROPHIL 79 % (50-75); PLATELET ESTIMATE NORMAL (NORMAL); POIKILOCYTOSIS SLIGHT; TOTAL CELLS COUNTED 100
[2017-03-28 08:20] LABS: LARGE PLATELETS PRESENT; OVALOCYTES SLIGHT; TARGET CELLS SLIGHT
[2017-03-28] MEDS: (Lantus) Insulin Glargine, Recombinant SC SCH (10:00)
--- NOTE | 2017-03-28 10:25 | RAD ---
HISTORY: CHF COMPARISON: 03/24/2017 FINDINGS: LUNGS: Bilateral ill-defined bilateral alveolar opacity left greater than right, somewhat of a perihilar distribution. This appears somewhat worse than on prior chest radiograph. PLEURA: No definite pleural effusion. No pneumothorax. CARDIOVASCULAR: Pulmonary vascular congestive change. Sternotomy wires. Right PICC catheter unchanged. OSSEOUS STRUCTURES: No significant abnormalities. VISUALIZED UPPER ABDOMEN: Normal. OTHER FINDINGS: None. IMPRESSION: Bilateral perihilar opacity, left greater than right. Congestive change. No pleural effusion. Nonspecific finding. Possible congestive heart failure/ pulmonary edema. Rule out pneumonia.
[2017-03-28] MEDS: Collagenase 250 Units/gm Ointment(30 gm) TOP SCH (10:47)
[2017-03-28] MEDS: guaiFENesin 600 mg ER Tab PO SCH ×2 (10:50→17:14)
[2017-03-28] MEDS: Pantoprazole 40 mg EC Tab PO SCH (10:50)
[2017-03-28] MEDS: Cilostazol 100 mg Tab UD PO SCH ×2 (10:51→17:14)
[2017-03-28] MEDS: Fluconazole IV 200mg/100 ml NS 100 ML IVPB SCH (10:51)
--- NOTE | 2017-03-28 11:08 | CP.PCM.PN ---
Subjective - Date & Time of Evaluation Date of Evaluation: 03/28/17 Time of Evaluation: 07:00 - Subjective Subjective: Medicine Note (PGY 1): Dr. Randall's service Patient was seen and examined at bedside in the AM. Patient states he has an ongoing cough without phlegm production. Patient was being fed by the nurse at bedside because his appetite is decreased. Patient denies fever, chest pain, nausea, vomiting, diarrhea, or constipation. Objective - Vital Signs/Intake and Output Vital Signs (last 24 hours): Temp Pulse Resp BP Pulse Ox 98.5 F 106 H 20 90/65 L 96 03/28/17 04:00 03/27/17 19:06 03/27/17 19:06 03/27/17 19:06 03/27/17 04:00 Intake and Output: 03/28/17 03/28/17 06:59 18:59 Intake Total 440 Output Total 850 Balance -410 - Medications Medications: Current Medications Albuterol/Ipratropium (Duoneb 3 Mg/0.5 Mg (3 Ml) Ud) 3 ml INH RQ8 [facility] Last Admin: 03/28/17 09:04 Dose: 3 ml Amiodarone HCl (Cordarone) 200 mg PO DAILY [facility] Last Admin: 03/28/17 10:50 Dose: 200 mg Cilostazol (Pletal) 100 mg PO BID [facility] Last Admin: 03/28/17 10:51 Dose: 100 mg Collagenase (Santyl) 1 gm TOP DAILY [facility] Last Admin: 03/28/17 10:47 Dose: 1 applic Docusate Sodium (Colace) 100 mg PO DAILY [facility] Last Admin: 03/28/17 10:49 Dose: 100 mg Ferrous Sulfate (Feosol) 325 mg PO BID [facility] Last Admin: 03/28/17 10:49 Dose: 325 mg Furosemide (Lasix) 20 mg IVP ONCE PRN PRN Reason: Cough and congestion Last Admin: 03/26/17 20:00 Dose: 20 mg Gabapentin (Neurontin) 100 mg PO BID [facility] Last Admin: 03/28/17 10:50 Dose: 100 mg Guaifenesin (Mucinex La) 600 mg PO BID [facility] Last Admin: 03/28/17 10:50 Dose: 600 mg Fluconazole (Diflucan Iv 200 Mg/100 Ml Ns) 100 mls @ 100 mls/hr IVPB DAILY [facility] Stop: 04/04/17 10:59 Last Admin: 03/28/17 10:51 Dose: 100 mls/hr Imipenem/Cilastatin Sodium 250 (mg/ Sodium Chloride) 100 mls @ 100 mls/hr IVPB Q6H [facility] Last Admin: 03/28/17 05:34 Dose: 100 mls/hr Insulin Aspart (Novolog) 0 unit SC ACHS [facility] PRN Reason: Protocol Last Admin: 03/27/17 21:40 Dose: Not Given Insulin Glargine (Lantus) 10 unit SC DAILY [facility] Last Admin: 03/28/17 10:00 Dose: Not Given Mupirocin (Bactroban Ointment) 0 gm TOP BID [facility] Last Admin: 03/28/17 10:48 Dose: 1 applic Pantoprazole Sodium (Protonix Ec Tab) 40 mg PO DAILY [facility] Last Admin: 03/28/17 10:50 Dose: 40 mg Promethazine HCl/Codeine (Phenergan/Codeine Oral Syrup) 5 ml PO Q4 PRN PRN Reason: Cough Fluticasone/Salmeterol (Advair Diskus 100/50) 1 puff IH RQD [facility] Last Admin: 03/26/17 10:41 Dose: Not Given - Labs Labs: 03/28/17 06:22 03/28/17 06:22 PT 15.4 SECONDS (9.7-12.2) H 03/27/17 06:31 INR 1.4 03/27/17 06:31 APTT 32 SECONDS (21-34) 03/26/17 06:03 - Constitutional Appears: No Acute Distress - Head Exam Head Exam: NORMAL INSPECTION - Eye Exam Eye Exam: Normal appearance - ENT Exam ENT Exam: Mucous Membranes Moist - Respiratory Exam Respiratory Exam: Wheezes, NORMAL BREATHING PATTERN - Cardiovascular Exam Cardiovascular Exam: REGULAR RHYTHM, +S1, +S2, Murmur (aortic stenosis ) - GI/Abdominal Exam GI & Abdominal Exam: Soft, Normal Bowel Sounds. absent: Tenderness - Extremities Exam Extremities Exam: Pedal Edema (3+ swelling seen up until patient's scrotum) - Neurological Exam Neurological Exam: Alert, Awake, Oriented x3 - Skin Skin Exam: Normal Color, Warm Assessment and Plan - Assessment and Plan (Free Text) Plan: 1.) Acute Anemia H/H (03/28): 9.6/29.3; H/H (03/27): 9.6/30.2; H/H (03/26): 8.2/25.9 Iron: 36, TIBC: 285, %14, Ferritin: 48.5 Endoscopy (03/21): monillial esophagitis. Cells for cytology obtained. Erosive gastropahty. Normal examined duodenum-->negative cytology cells Patient has had 3 units of PRBC transfused during hospitalization Consult: Dr. Ag (GI) on board-->help appreciated---> can patient start anticoagulation? CT Abd/pelvis: no evidence of intraperitoneal hemorrhage or retroperitoneal hemorrhage Ferrous sulfate 325mg PO BID 2.) Acute exacerbation of Congestive Heart Failure Consult: Dr. Canales (Cardiology) on board-->help appreciated * Patient is not a candidate for valve replacement Echocardiogram (03/21/17): left ventricle systolic function is severely impaired , EF: 25%, spetal motion consistent with post operative state. Global hypokinesis of the left ventricle. Grade II-pseudonormal filling. Severe valvuar aortic stenosis. Mitral regurgitation is moderate. Severe pulmonary hypertension Per cardiology, patient is not a surgical candidate for aortic stenosis Amiodarone 200mg PO daily Lasic 20mg IVP ONCE PRN Chest X-ray (03/27/17): Bilateral perhilar opacity, left greater than right. Congestive change. No pleural effusion. Nonspecific finding. Possible congestive heart failure/pulmonary edema. Rule out pneumonia. 3.) Ascites Possibly secondary to CHF and Acute Kidney Injury Intervential Radiology Consult, Dr. Franco Skaggs --> Help Appreciated Paracentesis performed 03/27/17: removed 2L of dark yellow fluid; Per Dr. Ag's note the total PMN count on the fluid was 216, which is below the threshold for SBP (Must be below 250). - f/u LDH of peritoneal fluid - f/u glucose of peritoneal fluid - f/u albumin of peritoneal fluid - f/u body fluid culture/smear of peritoneal fluid 4.) Atrial fibrillation Amiodarone 200mg PO daily patient is off Xarelto secondary to GI workup r/o bleed 5.) Acute Kidney Injury Consult: Dr. Reynolds (nephrology) on board-->help appreciated Improving Off lasix/juan jose/arb/statin 6.) Hypertension Patient is borderline hypotensive. 7.) History of CABG Continue medical management as per cardiology. 8.) Diabetes Mellitus with hyperglycemia Hgba1c: 7.2 Lantus 10 units subq daily 9.) Hyperlipidemia off statin 10.) Peripheral vascular disease Patient is on Pletal 100mg PO BID 11.) Esophageal Candidiasis On Diflucan 200mg IV q daily (active since 03/22/17) 12.) Urinary Tract Infection due to extended spectrum beta lactamase (ESBL) producing Escherichia coli primaxin 250mg IV 6 hours (active since 03/22/17) urine culture (03/20/17): +ESBL f/u Repeat Urine Culture 13.) Chronic Cough Non-phlegm producing Started 03/27 on Phenergan/Codeine Oral Syrup 5ml PO Q4 PRN Sputum Culture: Few polymorphonuclear WBS, few epithelial cells, no organisms seen. 14.) Prophylaxis Protonix 40mg PO daily Discontinued heparin 5000 units subq 12 hours PT/OT evaluation 03/27/17: RN deferred because patient was going to have tapping of the belly. Palliative Care Consult placed on 03/27/17
--- NOTE | 2017-03-28 13:14 | CP.PCM.PN ---
Subjective - Date & Time of Evaluation Date of Evaluation: 03/28/17 Time of Evaluation: 13:11 - Subjective Subjective: c/o cough; more dyspneic Increased peripheral edema and ascites noted Renal function stable Lytes acceptable CXR with CHF Objective - Vital Signs/Intake and Output Vital Signs (last 24 hours): Temp Pulse Resp BP Pulse Ox 97.4 F L 106 H 20 90/65 L 96 03/28/17 08:00 03/27/17 19:06 03/27/17 19:06 03/27/17 19:06 03/27/17 04:00 Intake and Output: 03/28/17 03/28/17 06:59 18:59 Intake Total 440 [id number] Output Total 850 260 Balance -410 [id number] - Medications Medications: Current Medications Albuterol/Ipratropium (Duoneb 3 Mg/0.5 Mg (3 Ml) Ud) 3 ml INH RQ8 [facility] Last Admin: 03/28/17 09:04 Dose: 3 ml Amiodarone HCl (Cordarone) 200 mg PO DAILY [facility] Last Admin: 03/28/17 10:50 Dose: 200 mg Cilostazol (Pletal) 100 mg PO BID [facility] Last Admin: 03/28/17 10:51 Dose: 100 mg Collagenase (Santyl) 1 gm TOP DAILY [facility] Last Admin: 03/28/17 10:47 Dose: 1 applic Docusate Sodium (Colace) 100 mg PO DAILY [facility] Last Admin: 03/28/17 10:49 Dose: 100 mg Ferrous Sulfate (Feosol) 325 mg PO BID [facility] Last Admin: 03/28/17 10:49 Dose: 325 mg Furosemide (Lasix) 20 mg IVP ONCE PRN PRN Reason: Cough and congestion Last Admin: 03/26/17 20:00 Dose: 20 mg Gabapentin (Neurontin) 100 mg PO BID [facility] Last Admin: 03/28/17 10:50 Dose: 100 mg Guaifenesin (Mucinex La) 600 mg PO BID [facility] Last Admin: 03/28/17 10:50 Dose: 600 mg Fluconazole (Diflucan Iv 200 Mg/100 Ml Ns) 100 mls @ 100 mls/hr IVPB DAILY [facility] Stop: 04/04/17 10:59 Last Admin: 03/28/17 10:51 Dose: 100 mls/hr Imipenem/Cilastatin Sodium 250 (mg/ Sodium Chloride) 100 mls @ 100 mls/hr IVPB Q6H [facility] Last Admin: 03/28/17 12:08 Dose: 100 mls/hr Insulin Aspart (Novolog) 0 unit SC ACHS [facility] PRN Reason: Protocol Last Admin: 03/28/17 12:07 Dose: 2 unit Insulin Glargine (Lantus) 10 unit SC DAILY [facility] Last Admin: 03/28/17 10:00 Dose: Not Given Mupirocin (Bactroban Ointment) 0 gm TOP BID [facility] Last Admin: 03/28/17 10:48 Dose: 1 applic Pantoprazole Sodium (Protonix Ec Tab) 40 mg PO DAILY [facility] Last Admin: 03/28/17 10:50 Dose: 40 mg Promethazine HCl/Codeine (Phenergan/Codeine Oral Syrup) 5 ml PO Q4 PRN PRN Reason: Cough Fluticasone/Salmeterol (Advair Diskus 100/50) 1 puff IH RQD [facility] Last Admin: 03/26/17 10:41 Dose: Not Given - Labs Labs: 03/28/17 06:22 03/28/17 06:22 PT 15.4 SECONDS (9.7-12.2) H 03/27/17 06:31 INR 1.4 03/27/17 06:31 APTT 32 SECONDS (21-34) 03/26/17 06:03 - Constitutional Appears: In Acute Distress, Chronically Ill - Head Exam Head Exam: ATRAUMATIC, NORMAL INSPECTION - Eye Exam Eye Exam: EOMI, Normal appearance - Neck Exam Neck Exam: Normal Inspection. absent: Tenderness - Respiratory Exam Respiratory Exam: Rhonchi, Respiratory Distress - Cardiovascular Exam Cardiovascular Exam: REGULAR RHYTHM, +S1 - GI/Abdominal Exam GI & Abdominal Exam: Soft. absent: Tenderness - Extremities Exam Extremities Exam: Pedal Edema, Tenderness - Neurological Exam Neurological Exam: Awake, CN II-XII Intact - Skin Skin Exam: Dry, Warm Assessment and Plan (1) LETICIA (acute kidney injury) Status: Acute (2) UTI due to extended-spectrum beta lactamase (ESBL) producing Escherichia coli Status: Acute (3) Diabetic peripheral angiopathy Status: Acute (4) CHF (congestive heart failure) Status: Acute (5) CKD (chronic kidney disease) stage 3, GFR 30-59 ml/min Status: Acute - Assessment and Plan (Free Text) Plan: Add IV lasix follow up lytes paracentesis as per GI
[2017-03-28] MEDS: Promethazine/Cod 6.25mg-10mg/5ml Syr UD PO PRN ×2 (14:18→21:39)
[2017-03-29] MEDS: Albuterol-Ipratrop 3 mg / 0.5 (3 ml) UD INH SCH ×3 (02:37→16:18)
[2017-03-29] MEDS: Imipenem/Cilastatin 250 MG in Sodium Chloride 100 ML IVPB SCH ×2 (05:21→12:27)
[2017-03-29 06:45] LABS: SQUAMOUS EPITHIAL < 1 /hpf (0-5); URINE BILIRUBIN NEGATIVE (NEGATIVE); URINE BLOOD 3+ (NEGATIVE); URINE CLARITY Hazy (Clear); URINE COLOR Yellow (YELLOW); URINE GLUCOSE (UA) 1+ mg/dL (Normal); URINE LEUKOCYTE ESTERASE TRACE Leu/uL (Negative); URINE NITRATE NEGATIVE (NEGATIVE); URINE PROTEIN NEGATIVE (NEGATIVE)
[2017-03-29 07:00] LABS: ALBUMIN 2.7 g/dL (3.5-5.0)
[2017-03-29 07:02] LABS: BASO # 0.1 K/uL (0.0-0.2); BASO % 0.9 % (0.0-2.0); EOS # 0.4 K/uL (0.0-0.7); EOS % 5.5 % (0.0-4.0); HEMOGLOBIN 9.3 g/dL (12.0-18.0); LYMPH # 0.8 K/uL (1.0-4.3); LYMPH % 11.1 % (20.0-40.0); MEAN CELL VOLUME 85.5 fL (80.0-94.0); MEAN CORPUSCULAR HEMOGLOBIN 27.6 pg (27.0-31.0); MEAN CORPUSCULAR HGB CONC 32.2 g/dL (33.0-37.0); MEAN PLATELET VOLUME 8.9 fL (7.2-11.7); MONO # 0.4 K/uL (0.0-0.8); MONO % 5.5 % (0.0-10.0); NEUT # 5.4 K/uL (1.8-7.0); RBC 3.38 Mil/uL (4.40-5.90); RED CELL DISTRIBUTION WIDTH 17.7 % (11.5-14.5); WHITE BLOOD COUNT 7.1 K/uL (4.8-10.8)
[2017-03-29 07:03] LABS: ALB/GLOB RATIO 0.7 (1.0-2.1)
[2017-03-29 07:04] LABS: CALCIUM 8.2 mg/dl (8.6-10.4)
[2017-03-29] MEDS: (Novolog) Insulin Aspart, Recombinant 100 u/ml 10 ml vial SC SCH ×3 (08:37→21:49)
[2017-03-29] MEDS: Fluticasone-Salmeterol 100-50mcg Diskus IH SCH ×2 (09:13→21:17)
[2017-03-29] MEDS: Pantoprazole 40 mg EC Tab PO SCH (09:14)
[2017-03-29] MEDS ORDERED: Sod Polystyrene Sulf 15 gm/60 ml Oral Susp PO ONE (09:14)
--- NOTE | 2017-03-29 09:15 | CP.PCM.PN ---
Subjective - Date & Time of Evaluation Date of Evaluation: 03/29/17 Time of Evaluation: 09:14 - Subjective Subjective: Pt seen for follow up for tma sites b/l with small wound right tma site . Objective - Vital Signs/Intake and Output Vital Signs (last 24 hours): Temp Pulse Resp BP Pulse Ox 98.4 F 98 H 16 101/38 L 99 03/29/17 08:00 03/29/17 08:00 03/29/17 08:00 03/29/17 08:00 03/29/17 08:00 Intake and Output: 03/29/17 03/29/17 06:59 18:59 Intake Total 250 Output Total 900 Balance -650 - Medications Medications: Current Medications Albuterol/Ipratropium (Duoneb 3 Mg/0.5 Mg (3 Ml) Ud) 3 ml INH RQ8 [facility] Last Admin: 03/29/17 08:34 Dose: 3 ml Amiodarone HCl (Cordarone) 200 mg PO DAILY [facility] Last Admin: 03/28/17 10:50 Dose: 200 mg Cilostazol (Pletal) 100 mg PO BID [facility] Last Admin: 03/28/17 17:14 Dose: 100 mg Collagenase (Santyl) 1 gm TOP DAILY [facility] Last Admin: 03/28/17 10:47 Dose: 1 applic Docusate Sodium (Colace) 100 mg PO DAILY [facility] Last Admin: 03/28/17 10:49 Dose: 100 mg Ferrous Sulfate (Feosol) 325 mg PO BID [facility] Last Admin: 03/28/17 17:13 Dose: 325 mg Furosemide (Lasix) 40 mg IVP DAILY [facility] Last Admin: 03/28/17 14:18 Dose: 40 mg Gabapentin (Neurontin) 100 mg PO BID [facility] Last Admin: 03/28/17 17:16 Dose: 100 mg Guaifenesin (Mucinex La) 600 mg PO BID [facility] Last Admin: 03/28/17 17:14 Dose: 600 mg Fluconazole (Diflucan Iv 200 Mg/100 Ml Ns) 100 mls @ 100 mls/hr IVPB DAILY [facility] Stop: 04/04/17 10:59 Last Admin: 03/28/17 10:51 Dose: 100 mls/hr Imipenem/Cilastatin Sodium 250 (mg/ Sodium Chloride) 100 mls @ 100 mls/hr IVPB Q6H [facility] Last Admin: 03/29/17 05:21 Dose: 100 mls/hr Insulin Aspart (Novolog) 0 unit SC ACHS [facility] PRN Reason: Protocol Last Admin: 03/29/17 08:37 Dose: 2 unit Insulin Glargine (Lantus) 10 unit SC DAILY [facility] Last Admin: 03/28/17 10:00 Dose: Not Given Mupirocin (Bactroban Ointment) 0 gm TOP BID [facility] Last Admin: 03/28/17 17:17 Dose: 1 applic Pantoprazole Sodium (Protonix Ec Tab) 40 mg PO DAILY [facility] Last Admin: 03/28/17 10:50 Dose: 40 mg Promethazine HCl/Codeine (Phenergan/Codeine Oral Syrup) 5 ml PO Q4 PRN PRN Reason: Cough Last Admin: 03/28/17 21:39 Dose: 5 ml Fluticasone/Salmeterol (Advair Diskus 100/50) 1 puff IH RQD [facility] Last Admin: 03/26/17 10:41 Dose: Not Given - Labs Labs: 03/29/17 06:35 03/29/17 06:35 PT 15.4 SECONDS (9.7-12.2) H 03/27/17 06:31 INR 1.4 03/27/17 06:31 APTT 32 SECONDS (21-34) 03/26/17 06:03
--- NOTE | 2017-03-29 09:18 | CP.PCM.PN ---
Subjective - Date & Time of Evaluation Date of Evaluation: 03/29/17 Time of Evaluation: 09:15 - Subjective Subjective: Good response to lasix- 900ml this AM Less cough K at 5.0- give 1 dose kayexalate Still edematous No new complaints otherwise Objective - Vital Signs/Intake and Output Vital Signs (last 24 hours): Temp Pulse Resp BP Pulse Ox 98.4 F 98 H 16 101/38 L 99 03/29/17 08:00 03/29/17 08:00 03/29/17 08:00 03/29/17 08:00 03/29/17 08:00 Intake and Output: 03/29/17 03/29/17 06:59 18:59 Intake Total 250 Output Total 900 Balance -650 - Medications Medications: Current Medications Albuterol/Ipratropium (Duoneb 3 Mg/0.5 Mg (3 Ml) Ud) 3 ml INH RQ8 [facility] Last Admin: 03/29/17 08:34 Dose: 3 ml Amiodarone HCl (Cordarone) 200 mg PO DAILY [facility] Last Admin: 03/29/17 09:13 Dose: 200 mg Cilostazol (Pletal) 100 mg PO BID [facility] Last Admin: 03/28/17 17:14 Dose: 100 mg Collagenase (Santyl) 1 gm TOP DAILY [facility] Last Admin: 03/28/17 10:47 Dose: 1 applic Docusate Sodium (Colace) 100 mg PO DAILY [facility] Last Admin: 03/29/17 09:13 Dose: 100 mg Ferrous Sulfate (Feosol) 325 mg PO BID [facility] Last Admin: 03/29/17 09:13 Dose: 325 mg Furosemide (Lasix) 40 mg IVP DAILY [facility] Last Admin: 03/28/17 14:18 Dose: 40 mg Gabapentin (Neurontin) 100 mg PO BID [facility] Last Admin: 03/29/17 09:13 Dose: 100 mg Guaifenesin (Mucinex La) 600 mg PO BID [facility] Last Admin: 03/28/17 17:14 Dose: 600 mg Fluconazole (Diflucan Iv 200 Mg/100 Ml Ns) 100 mls @ 100 mls/hr IVPB DAILY [facility] Stop: 04/04/17 10:59 Last Admin: 03/28/17 10:51 Dose: 100 mls/hr Imipenem/Cilastatin Sodium 250 (mg/ Sodium Chloride) 100 mls @ 100 mls/hr IVPB Q6H [facility] Last Admin: 03/29/17 05:21 Dose: 100 mls/hr Insulin Aspart (Novolog) 0 unit SC ACHS [facility] PRN Reason: Protocol Last Admin: 03/29/17 08:37 Dose: 2 unit Insulin Glargine (Lantus) 10 unit SC DAILY [facility] Last Admin: 03/28/17 10:00 Dose: Not Given Mupirocin (Bactroban Ointment) 0 gm TOP BID [facility] Last Admin: 03/28/17 17:17 Dose: 1 applic Pantoprazole Sodium (Protonix Ec Tab) 40 mg PO DAILY [facility] Last Admin: 03/29/17 09:14 Dose: 40 mg Promethazine HCl/Codeine (Phenergan/Codeine Oral Syrup) 5 ml PO Q4 PRN PRN Reason: Cough Last Admin: 03/28/17 21:39 Dose: 5 ml Fluticasone/Salmeterol (Advair Diskus 100/50) 1 puff IH RQD [facility] Last Admin: 03/29/17 09:13 Dose: 1 puff Sodium Polystyrene Sulfonate (Kayexalate Oral Susp) 15 gm PO ONCE [facility] Stop: 03/29/17 09:15 - Labs Labs: 03/29/17 06:35 03/29/17 06:35 PT 15.4 SECONDS (9.7-12.2) H 03/27/17 06:31 INR 1.4 03/27/17 06:31 APTT 32 SECONDS (21-34) 03/26/17 06:03 - Constitutional Appears: No Acute Distress, Chronically Ill - Head Exam Head Exam: ATRAUMATIC, NORMAL INSPECTION - Eye Exam Eye Exam: EOMI, Normal appearance - Neck Exam Neck Exam: Normal Inspection. absent: Tenderness - Respiratory Exam Respiratory Exam: Rales, NORMAL BREATHING PATTERN - Cardiovascular Exam Cardiovascular Exam: REGULAR RHYTHM, +S1 - GI/Abdominal Exam GI & Abdominal Exam: Soft. absent: Tenderness - Extremities Exam Extremities Exam: Pedal Edema, Tenderness - Neurological Exam Neurological Exam: Awake, CN II-XII Intact - Skin Skin Exam: Dry, Warm Assessment and Plan (1) LETICIA (acute kidney injury) Status: Acute (2) UTI due to extended-spectrum beta lactamase (ESBL) producing Escherichia coli Status: Acute (3) Diabetic peripheral angiopathy Status: Acute (4) CHF (congestive heart failure) Status: Acute (5) CKD (chronic kidney disease) stage 3, GFR 30-59 ml/min Status: Acute - Assessment and Plan (Free Text) Plan: Continiue IV lasix Kayexalate Monitor lytes, renal function
[2017-03-29] MEDS: guaiFENesin 600 mg ER Tab PO SCH (09:19)
[2017-03-29] MEDS: Collagenase 250 Units/gm Ointment(30 gm) TOP SCH (09:20)
--- NOTE | 2017-03-29 09:32 | CP.PCM.PN ---
Subjective - Date & Time of Evaluation Date of Evaluation: 03/29/17 Time of Evaluation: 09:30 - Subjective Subjective: pt seen for wound at TMA site right foot chronic in nature .Pt was lost to folloiw up due to his illness . Objective - Vital Signs/Intake and Output Vital Signs (last 24 hours): Temp Pulse Resp BP Pulse Ox 98.4 F 98 H 16 101/48 L 99 03/29/17 08:00 03/29/17 08:00 03/29/17 08:00 03/29/17 09:18 03/29/17 08:00 Intake and Output: 03/29/17 03/29/17 06:59 18:59 Intake Total 250 Output Total 900 Balance -650 - Medications Medications: Current Medications Albuterol/Ipratropium (Duoneb 3 Mg/0.5 Mg (3 Ml) Ud) 3 ml INH RQ8 [facility] Last Admin: 03/29/17 08:34 Dose: 3 ml Amiodarone HCl (Cordarone) 200 mg PO DAILY [facility] Last Admin: 03/29/17 09:13 Dose: 200 mg Cilostazol (Pletal) 100 mg PO BID [facility] Last Admin: 03/28/17 17:14 Dose: 100 mg Collagenase (Santyl) 1 gm TOP DAILY [facility] Last Admin: 03/29/17 09:20 Dose: 1 applic Docusate Sodium (Colace) 100 mg PO DAILY [facility] Last Admin: 03/29/17 09:13 Dose: 100 mg Ferrous Sulfate (Feosol) 325 mg PO BID [facility] Last Admin: 03/29/17 09:13 Dose: 325 mg Furosemide (Lasix) 40 mg IVP DAILY [facility] Last Admin: 03/29/17 09:18 Dose: 40 mg Gabapentin (Neurontin) 100 mg PO BID [facility] Last Admin: 03/29/17 09:13 Dose: 100 mg Guaifenesin (Mucinex La) 600 mg PO BID [facility] Last Admin: 03/29/17 09:19 Dose: 600 mg Fluconazole (Diflucan Iv 200 Mg/100 Ml Ns) 100 mls @ 100 mls/hr IVPB DAILY [facility] Stop: 04/04/17 10:59 Last Admin: 03/28/17 10:51 Dose: 100 mls/hr Imipenem/Cilastatin Sodium 250 (mg/ Sodium Chloride) 100 mls @ 100 mls/hr IVPB Q6H [facility] Last Admin: 03/29/17 05:21 Dose: 100 mls/hr Insulin Aspart (Novolog) 0 unit SC ACHS [facility] PRN Reason: Protocol Last Admin: 03/29/17 08:37 Dose: 2 unit Insulin Glargine (Lantus) 10 unit SC DAILY [facility] Last Admin: 03/28/17 10:00 Dose: Not Given Mupirocin (Bactroban Ointment) 0 gm TOP BID [facility] Last Admin: 03/29/17 09:20 Dose: 1 applic Pantoprazole Sodium (Protonix Ec Tab) 40 mg PO DAILY [facility] Last Admin: 03/29/17 09:14 Dose: 40 mg Promethazine HCl/Codeine (Phenergan/Codeine Oral Syrup) 5 ml PO Q4 PRN PRN Reason: Cough Last Admin: 03/28/17 21:39 Dose: 5 ml Fluticasone/Salmeterol (Advair Diskus 100/50) 1 puff IH RQD [facility] Last Admin: 03/29/17 09:13 Dose: 1 puff - Labs Labs: 03/29/17 06:35 03/29/17 06:35 PT 15.4 SECONDS (9.7-12.2) H 03/27/17 06:31 INR 1.4 03/27/17 06:31 APTT 32 SECONDS (21-34) 03/26/17 06:03 - Extremities Exam Additional comments: O/Left TMA site is healed. Right TMA site has medial wound with fibrotic tissue deep to fat layer . No sign of infection noted . Wound size is approx. 4 cm x 1cm x 0.4 cm with fibrotic tissue . Edema of feet noted b/l . Vascular status grossly intact . DM neuropathy b/l DP/PT pulses [employer] b/l . Assessment and Plan - Assessment and Plan (Free Text) Assessment: A/Zhou 2 ulcer right TMA site Plan: P/Apply Santyl/Bactroban /Petrolatum gauze and dsd daily . Apply protective dressing left TMA and change q 3 days .
[2017-03-29] MEDS: Cilostazol 100 mg Tab UD PO SCH (09:46)
[2017-03-29] MEDS: (Lantus) Insulin Glargine, Recombinant SC SCH (10:00)
[2017-03-30] MEDS: Imipenem/Cilastatin 250 MG in Sodium Chloride 100 ML IVPB SCH ×4 (00:25→17:04)
[2017-03-30] MEDS: Albuterol-Ipratrop 3 mg / 0.5 (3 ml) UD INH SCH ×3 (01:12→16:18)
[2017-03-30 06:32] LABS: BASO # 0.1 K/uL (0.0-0.2); BASO % 1.1 % (0.0-2.0); EOS # 0.3 K/uL (0.0-0.7); EOS % 4.5 % (0.0-4.0); HEMOGLOBIN 9.3 g/dL (12.0-18.0); LYMPH # 0.7 K/uL (1.0-4.3); LYMPH % 10.1 % (20.0-40.0); MEAN CELL VOLUME 85.2 fL (80.0-94.0); MEAN CORPUSCULAR HEMOGLOBIN 27.1 pg (27.0-31.0); MEAN CORPUSCULAR HGB CONC 31.8 g/dL (33.0-37.0); MEAN PLATELET VOLUME 8.7 fL (7.2-11.7); MONO # 0.4 K/uL (0.0-0.8); MONO % 5.4 % (0.0-10.0); NEUT # 5.4 K/uL (1.8-7.0); NEUT % 78.9 % (50.0-75.0); RBC 3.42 Mil/uL (4.40-5.90); RED CELL DISTRIBUTION WIDTH 18.2 % (11.5-14.5); WHITE BLOOD COUNT 6.8 K/uL (4.8-10.8)
[2017-03-30 06:53] LABS: ALBUMIN 2.7 g/dL (3.5-5.0)
[2017-03-30 06:56] LABS: ALB/GLOB RATIO 0.7 (1.0-2.1)
[2017-03-30 06:57] LABS: CALCIUM 8.3 mg/dl (8.6-10.4)
[2017-03-30] MEDS: (Novolog) Insulin Aspart, Recombinant 100 u/ml 10 ml vial SC SCH ×4 (08:14→22:00)
--- NOTE | 2017-03-30 08:16 | CP.PCM.PN ---
Subjective - Date & Time of Evaluation Date of Evaluation: 03/29/17 Time of Evaluation: 12:42 - Subjective Subjective: COVERING DR MONROY No bleeding or melena Objective - Vital Signs/Intake and Output Vital Signs (last 24 hours): Temp Pulse Resp BP Pulse Ox 98.4 F 98 H 16 101/48 L 99 03/29/17 08:00 03/29/17 08:00 03/29/17 08:00 03/29/17 09:18 03/29/17 08:00 Intake and Output: 03/29/17 03/29/17 06:59 18:59 Intake Total 250 Output Total 900 Balance -650 - Medications Medications: Current Medications Albuterol/Ipratropium (Duoneb 3 Mg/0.5 Mg (3 Ml) Ud) 3 ml INH RQ8 [facility] Last Admin: 03/29/17 08:34 Dose: 3 ml Amiodarone HCl (Cordarone) 200 mg PO DAILY [facility] Last Admin: 03/29/17 09:13 Dose: 200 mg Cilostazol (Pletal) 100 mg PO BID [facility] Last Admin: 03/29/17 09:46 Dose: 100 mg Collagenase (Santyl) 1 gm TOP DAILY [facility] Last Admin: 03/29/17 09:20 Dose: 1 applic Docusate Sodium (Colace) 100 mg PO DAILY [facility] Last Admin: 03/29/17 09:13 Dose: 100 mg Ferrous Sulfate (Feosol) 325 mg PO BID [facility] Last Admin: 03/29/17 09:13 Dose: 325 mg Furosemide (Lasix) 40 mg IVP DAILY [facility] Last Admin: 03/29/17 09:18 Dose: 40 mg Gabapentin (Neurontin) 100 mg PO BID [facility] Last Admin: 03/29/17 09:13 Dose: 100 mg Guaifenesin (Mucinex La) 600 mg PO BID [facility] Last Admin: 03/29/17 09:19 Dose: 600 mg Fluconazole (Diflucan Iv 200 Mg/100 Ml Ns) 100 mls @ 100 mls/hr IVPB DAILY [facility] Stop: 04/04/17 10:59 Last Admin: 03/28/17 10:51 Dose: 100 mls/hr Imipenem/Cilastatin Sodium 250 (mg/ Sodium Chloride) 100 mls @ 100 mls/hr IVPB Q6H [facility] Last Admin: 03/29/17 12:27 Dose: 100 mls/hr Insulin Aspart (Novolog) 0 unit SC ACHS [facility] PRN Reason: Protocol Last Admin: 03/29/17 12:26 Dose: 2 unit Insulin Glargine (Lantus) 10 unit SC DAILY [facility] Last Admin: 03/28/17 10:00 Dose: Not Given Mupirocin (Bactroban Ointment) 0 gm TOP BID [facility] Last Admin: 03/29/17 09:20 Dose: 1 applic Pantoprazole Sodium (Protonix Ec Tab) 40 mg PO DAILY [facility] Last Admin: 03/29/17 09:14 Dose: 40 mg Promethazine HCl/Codeine (Phenergan/Codeine Oral Syrup) 5 ml PO Q4 PRN PRN Reason: Cough Last Admin: 03/28/17 21:39 Dose: 5 ml Fluticasone/Salmeterol (Advair Diskus 100/50) 1 puff IH RQD [facility] - Labs Labs: 03/29/17 06:35 03/29/17 06:35 PT 15.4 SECONDS (9.7-12.2) H 03/27/17 06:31 INR 1.4 03/27/17 06:31 APTT 32 SECONDS (21-34) 03/26/17 06:03 - Constitutional Appears: No Acute Distress - Head Exam Head Exam: NORMAL INSPECTION - Respiratory Exam Respiratory Exam: Clear to Ausculation Bilateral - Cardiovascular Exam Cardiovascular Exam: REGULAR RHYTHM - GI/Abdominal Exam GI & Abdominal Exam: Soft, Normal Bowel Sounds. absent: Tenderness - Extremities Exam Extremities Exam: Normal Inspection Assessment and Plan (1) Iron deficiency anemia Assessment & Plan: Monitor for active bleeding Status: Acute (2) Fecal occult blood test positive Assessment & Plan: For GI workup when cleared by cardiology Status: Acute (3) CHF (congestive heart failure) Assessment & Plan: Awaiting cardioogy clearance for GI workup Status: Acute
[2017-03-30] MEDS: Fluticasone-Salmeterol 100-50mcg Diskus IH SCH (08:35)
[2017-03-30] MEDS: Cilostazol 100 mg Tab UD PO SCH ×2 (09:35→17:09)
[2017-03-30] MEDS: guaiFENesin 600 mg ER Tab PO SCH ×2 (09:35→17:08)
[2017-03-30] MEDS: Pantoprazole 40 mg EC Tab PO SCH (09:35)
[2017-03-30] MEDS: Collagenase 250 Units/gm Ointment(30 gm) TOP SCH (09:36)
[2017-03-30] MEDS: Fluconazole IV 200mg/100 ml NS 100 ML IVPB SCH (09:38)
--- NOTE | 2017-03-30 10:15 | CP.PCM.PN ---
Subjective - Date & Time of Evaluation Date of Evaluation: 03/30/17 Time of Evaluation: 10:13 - Subjective Subjective: COVERING DR MONROY No bleeding or melena Objective - Vital Signs/Intake and Output Vital Signs (last 24 hours): Temp Pulse Resp BP Pulse Ox 97.9 F 101 H 18 108/76 98 03/30/17 08:00 03/30/17 08:00 03/30/17 08:00 03/30/17 09:34 03/30/17 08:00 Intake and Output: 03/30/17 03/30/17 06:59 18:59 Intake Total 250 Output Total 700 Balance -450 - Medications Medications: Current Medications Albuterol/Ipratropium (Duoneb 3 Mg/0.5 Mg (3 Ml) Ud) 3 ml INH RQ8 [facility] Last Admin: 03/30/17 08:35 Dose: 3 ml Amiodarone HCl (Cordarone) 200 mg PO DAILY [facility] Last Admin: 03/30/17 09:35 Dose: 200 mg Cilostazol (Pletal) 100 mg PO BID [facility] Last Admin: 03/30/17 09:35 Dose: 100 mg Collagenase (Santyl) 1 gm TOP DAILY [facility] Last Admin: 03/30/17 09:36 Dose: 1 applic Docusate Sodium (Colace) 100 mg PO DAILY [facility] Last Admin: 03/30/17 09:35 Dose: 100 mg Ferrous Sulfate (Feosol) 325 mg PO BID [facility] Last Admin: 03/30/17 09:35 Dose: 325 mg Furosemide (Lasix) 40 mg IVP DAILY [facility] Last Admin: 03/30/17 09:34 Dose: 40 mg Gabapentin (Neurontin) 100 mg PO BID [facility] Last Admin: 03/30/17 09:35 Dose: 100 mg Guaifenesin (Mucinex La) 600 mg PO BID [facility] Last Admin: 03/30/17 09:35 Dose: 600 mg Fluconazole (Diflucan Iv 200 Mg/100 Ml Ns) 100 mls @ 100 mls/hr IVPB DAILY [facility] Stop: 04/04/17 10:59 Last Admin: 03/30/17 09:38 Dose: 100 mls/hr Imipenem/Cilastatin Sodium 250 (mg/ Sodium Chloride) 100 mls @ 100 mls/hr IVPB Q6H [facility] Last Admin: 03/30/17 05:43 Dose: 100 mls/hr Insulin Aspart (Novolog) 0 unit SC ACHS [facility] PRN Reason: Protocol Last Admin: 03/30/17 08:14 Dose: Not Given Insulin Glargine (Lantus) 10 unit SC DAILY [facility] Last Admin: 03/29/17 10:00 Dose: Not Given Mupirocin (Bactroban Ointment) 0 gm TOP BID [facility] Last Admin: 03/30/17 09:37 Dose: 1 applic Pantoprazole Sodium (Protonix Ec Tab) 40 mg PO DAILY [facility] Last Admin: 03/30/17 09:35 Dose: 40 mg Promethazine HCl/Codeine (Phenergan/Codeine Oral Syrup) 5 ml PO Q4 PRN PRN Reason: Cough Last Admin: 03/28/17 21:39 Dose: 5 ml Fluticasone/Salmeterol (Advair Diskus 100/50) 1 puff IH RQD [facility] Last Admin: 03/30/17 08:35 Dose: 1 puff - Labs Labs: 03/30/17 06:15 03/30/17 06:15 PT 15.4 SECONDS (9.7-12.2) H 03/27/17 06:31 INR 1.4 03/27/17 06:31 APTT 32 SECONDS (21-34) 03/26/17 06:03 - Constitutional Appears: No Acute Distress - Head Exam Head Exam: ATRAUMATIC, NORMOCEPHALIC - Respiratory Exam Respiratory Exam: NORMAL BREATHING PATTERN - Cardiovascular Exam Cardiovascular Exam: REGULAR RHYTHM - GI/Abdominal Exam GI & Abdominal Exam: Soft, Normal Bowel Sounds. absent: Tenderness Assessment and Plan (1) Iron deficiency anemia Assessment & Plan: Hgb stable at 9.3 Awaiting cardiology clearance for workup. Status: Acute (2) Fecal occult blood test positive Assessment & Plan: Awaiting cardiology clearance for GI work up per Dr Monroy No change in H/H Status: Acute (3) CHF (congestive heart failure) Status: Acute
--- NOTE | 2017-03-30 10:21 | CP.PCM.PN ---
Subjective - Date & Time of Evaluation Date of Evaluation: 03/30/17 Time of Evaluation: 10:21 - Subjective Subjective: not sob complains of cough not able to expel sputum no pain no cp at bedside explained heart, suspected penumonia, uti explained no further bleeding Objective - Vital Signs/Intake and Output Vital Signs (last 24 hours): Temp Pulse Resp BP Pulse Ox 97.9 F 101 H 18 108/76 98 03/30/17 08:00 03/30/17 08:00 03/30/17 08:00 03/30/17 09:34 03/30/17 08:00 Intake and Output: 03/30/17 03/30/17 06:59 18:59 Intake Total 250 Output Total 700 Balance -450 - Medications Medications: Current Medications Albuterol/Ipratropium (Duoneb 3 Mg/0.5 Mg (3 Ml) Ud) 3 ml INH RQ8 [facility] Last Admin: 03/30/17 08:35 Dose: 3 ml Amiodarone HCl (Cordarone) 200 mg PO DAILY [facility] Last Admin: 03/30/17 09:35 Dose: 200 mg Cilostazol (Pletal) 100 mg PO BID [facility] Last Admin: 03/30/17 09:35 Dose: 100 mg Collagenase (Santyl) 1 gm TOP DAILY [facility] Last Admin: 03/30/17 09:36 Dose: 1 applic Docusate Sodium (Colace) 100 mg PO DAILY [facility] Last Admin: 03/30/17 09:35 Dose: 100 mg Ferrous Sulfate (Feosol) 325 mg PO BID [facility] Last Admin: 03/30/17 09:35 Dose: 325 mg Furosemide (Lasix) 40 mg IVP DAILY [facility] Last Admin: 03/30/17 09:34 Dose: 40 mg Gabapentin (Neurontin) 100 mg PO BID [facility] Last Admin: 03/30/17 09:35 Dose: 100 mg Guaifenesin (Mucinex La) 600 mg PO BID [facility] Last Admin: 03/30/17 09:35 Dose: 600 mg Fluconazole (Diflucan Iv 200 Mg/100 Ml Ns) 100 mls @ 100 mls/hr IVPB DAILY [facility] Stop: 04/04/17 10:59 Last Admin: 03/30/17 09:38 Dose: 100 mls/hr Imipenem/Cilastatin Sodium 250 (mg/ Sodium Chloride) 100 mls @ 100 mls/hr IVPB Q6H [facility] Last Admin: 03/30/17 05:43 Dose: 100 mls/hr Insulin Aspart (Novolog) 0 unit SC ACHS [facility] PRN Reason: Protocol Last Admin: 03/30/17 08:14 Dose: Not Given Insulin Glargine (Lantus) 10 unit SC DAILY [facility] Last Admin: 03/29/17 10:00 Dose: Not Given Mupirocin (Bactroban Ointment) 0 gm TOP BID [facility] Last Admin: 03/30/17 09:37 Dose: 1 applic Pantoprazole Sodium (Protonix Ec Tab) 40 mg PO DAILY [facility] Last Admin: 03/30/17 09:35 Dose: 40 mg Promethazine HCl/Codeine (Phenergan/Codeine Oral Syrup) 5 ml PO Q4 PRN PRN Reason: Cough Last Admin: 03/28/17 21:39 Dose: 5 ml Fluticasone/Salmeterol (Advair Diskus 100/50) 1 puff IH RQD [facility] Last Admin: 03/30/17 08:35 Dose: 1 puff - Labs Labs: 03/30/17 06:15 03/30/17 06:15 PT 15.4 SECONDS (9.7-12.2) H 03/27/17 06:31 INR 1.4 03/27/17 06:31 APTT 32 SECONDS (21-34) 03/26/17 06:03 - Constitutional Appears: Non-toxic, No Acute Distress, Cachectic, Chronically Ill - Head Exam Head Exam: ATRAUMATIC - ENT Exam ENT Exam: Mucous Membranes Dry - Respiratory Exam Respiratory Exam: Rhonchi, Wheezes. absent: Clear to Ausculation Bilateral, Rales, Respiratory Distress, NORMAL BREATHING PATTERN - Cardiovascular Exam Cardiovascular Exam: REGULAR RHYTHM, +S1, +S2, Murmur - GI/Abdominal Exam GI & Abdominal Exam: Soft, Normal Bowel Sounds. absent: Tenderness Additional comments: ascites - Neurological Exam Neurological Exam: Alert, Awake, Oriented x3 Assessment and Plan - Assessment and Plan (Free Text) Assessment: 1.) Acute Anemia presumed due to acute blood loss now stable H/H (03/28): 9.6/29.3; H/H (03/27): 9.6/30.2; H/H (03/26): 8.2/25.9 Iron: 36, TIBC: 285, %14, Ferritin: 48.5 Endoscopy (03/21): monillial esophagitis. Cells for cytology obtained. Erosive gastropahty. Normal examined duodenum-->negative cytology cells Patient has had 3 units of PRBC transfused during hospitalization Consult: Dr. Ag (GI) on board-->help appreciated---> can patient start anticoagulation? CT Abd/pelvis: no evidence of intraperitoneal hemorrhage or retroperitoneal hemorrhage Ferrous sulfate 325mg PO BID 2.) Acute exacerbation of Congestive Heart Failure Consult: Dr. Canales (Cardiology) on board-->help appreciated * Patient is not a candidate for valve replacement Echocardiogram (03/21/17): left ventricle systolic function is severely impaired , EF: 25%, spetal motion consistent with post operative state. Global hypokinesis of the left ventricle. Grade II-pseudonormal filling. Severe valvuar aortic stenosis. Mitral regurgitation is moderate. Severe pulmonary hypertension Per cardiology, patient is not a surgical candidate for aortic stenosis Amiodarone 200mg PO daily Lasic 20mg IVP ONCE PRN Chest X-ray (03/27/17): Bilateral perhilar opacity, left greater than right. Congestive change. No pleural effusion. Nonspecific finding. Possible congestive heart failure/pulmonary edema. Rule out pneumonia. 3.) Ascites Possibly secondary to CHF and Acute Kidney Injury Intervential Radiology Consult, Dr. Franco Skaggs --> Help Appreciated Paracentesis performed 03/27/17: removed 2L of dark yellow fluid; Per Dr. Ag's note the total PMN count on the fluid was 216, which is below the threshold for SBP (Must be below 250). - f/u LDH of peritoneal fluid - f/u glucose of peritoneal fluid - f/u albumin of peritoneal fluid - f/u body fluid culture/smear of peritoneal fluid 4.) Atrial fibrillation Amiodarone 200mg PO daily patient is off Xarelto secondary to GI workup r/o bleed 5.) Acute Kidney Injury Consult: Dr. Reynolds (nephrology) on board-->help appreciated Improving Off lasix/juan jose/arb/statin 6.) Hypertension Patient is borderline hypotensive. 7.) History of CABG Continue medical management as per cardiology. 8.) Diabetes Mellitus with hyperglycemia Hgba1c: 7.2 Lantus 10 units subq daily 9.) Hyperlipidemia off statin 10.) Peripheral vascular disease Patient is on Pletal 100mg PO BID 11.) Esophageal Candidiasis On Diflucan 200mg IV q daily (active since 03/22/17) 12.) Urinary Tract Infection due to extended spectrum beta lactamase (ESBL) producing Escherichia coli primaxin 250mg IV 6 hours (active since 03/22/17) urine culture (03/20/17): +ESBL f/u Repeat Urine Culture 13.) Acute on Chronic Cough and acute bronchitis/suspected pneumonia now productive phlegm producing Started 03/27 on Phenergan/Codeine Oral Syrup 5ml PO Q4 PRN Sputum Culture: Few polymorphonuclear WBS, few epithelial cells, no organisms seen. 14.) Prophylaxis Protonix 40mg PO daily Discontinued heparin 5000 units subq 12 hours PT/OT evaluation 03/27/17: RN deferred because patient was going to have tapping of the belly. Palliative Care Consult placed on 03/27/17
--- NOTE | 2017-03-30 10:21 | CP.PCM.PN ---
Subjective - Date & Time of Evaluation Date of Evaluation: 03/29/17 Time of Evaluation: 21:10 - Subjective Subjective: seen earlier in day documentation delayed due to [employer] not working no sob does have cough phlegm not able to be expelled he ends up swallowing up the phlegm Objective - Vital Signs/Intake and Output Vital Signs (last 24 hours): Temp Pulse Resp BP Pulse Ox 97.9 F 101 H 18 108/76 98 03/30/17 08:00 03/30/17 08:00 03/30/17 08:00 03/30/17 09:34 03/30/17 08:00 Intake and Output: 03/30/17 03/30/17 06:59 18:59 Intake Total 250 Output Total 700 Balance -450 - Medications Medications: Current Medications Albuterol/Ipratropium (Duoneb 3 Mg/0.5 Mg (3 Ml) Ud) 3 ml INH RQ8 [facility] Last Admin: 03/30/17 08:35 Dose: 3 ml Amiodarone HCl (Cordarone) 200 mg PO DAILY [facility] Last Admin: 03/30/17 09:35 Dose: 200 mg Cilostazol (Pletal) 100 mg PO BID [facility] Last Admin: 03/30/17 09:35 Dose: 100 mg Collagenase (Santyl) 1 gm TOP DAILY [facility] Last Admin: 03/30/17 09:36 Dose: 1 applic Docusate Sodium (Colace) 100 mg PO DAILY [facility] Last Admin: 03/30/17 09:35 Dose: 100 mg Ferrous Sulfate (Feosol) 325 mg PO BID [facility] Last Admin: 03/30/17 09:35 Dose: 325 mg Furosemide (Lasix) 40 mg IVP DAILY [facility] Last Admin: 03/30/17 09:34 Dose: 40 mg Gabapentin (Neurontin) 100 mg PO BID [facility] Last Admin: 03/30/17 09:35 Dose: 100 mg Guaifenesin (Mucinex La) 600 mg PO BID [facility] Last Admin: 03/30/17 09:35 Dose: 600 mg Fluconazole (Diflucan Iv 200 Mg/100 Ml Ns) 100 mls @ 100 mls/hr IVPB DAILY [facility] Stop: 04/04/17 10:59 Last Admin: 03/30/17 09:38 Dose: 100 mls/hr Imipenem/Cilastatin Sodium 250 (mg/ Sodium Chloride) 100 mls @ 100 mls/hr IVPB Q6H [facility] Last Admin: 03/30/17 05:43 Dose: 100 mls/hr Insulin Aspart (Novolog) 0 unit SC ACHS [facility] PRN Reason: Protocol Last Admin: 03/30/17 08:14 Dose: Not Given Insulin Glargine (Lantus) 10 unit SC DAILY [facility] Last Admin: 03/29/17 10:00 Dose: Not Given Mupirocin (Bactroban Ointment) 0 gm TOP BID [facility] Last Admin: 03/30/17 09:37 Dose: 1 applic Pantoprazole Sodium (Protonix Ec Tab) 40 mg PO DAILY [facility] Last Admin: 03/30/17 09:35 Dose: 40 mg Promethazine HCl/Codeine (Phenergan/Codeine Oral Syrup) 5 ml PO Q4 PRN PRN Reason: Cough Last Admin: 03/28/17 21:39 Dose: 5 ml Fluticasone/Salmeterol (Advair Diskus 100/50) 1 puff IH RQD [facility] Last Admin: 03/30/17 08:35 Dose: 1 puff - Labs Labs: 03/30/17 06:15 03/30/17 06:15 PT 15.4 SECONDS (9.7-12.2) H 03/27/17 06:31 INR 1.4 03/27/17 06:31 APTT 32 SECONDS (21-34) 03/26/17 06:03 - Constitutional Appears: No Acute Distress, Chronically Ill - Head Exam Head Exam: ATRAUMATIC - Eye Exam Eye Exam: Normal appearance - ENT Exam ENT Exam: Mucous Membranes Dry - Respiratory Exam Respiratory Exam: Rhonchi, Wheezes, NORMAL BREATHING PATTERN. absent: Clear to Ausculation Bilateral, Respiratory Distress, Stridor - Cardiovascular Exam Cardiovascular Exam: REGULAR RHYTHM, +S1, +S2, Murmur - GI/Abdominal Exam GI & Abdominal Exam: Soft, Normal Bowel Sounds, Organomegaly. absent: Tenderness Additional comments: ascites - Neurological Exam Neurological Exam: Alert, Awake, Oriented x3 Assessment and Plan - Assessment and Plan (Free Text) Assessment: 1.) Acute Anemia H/H (03/28): 9.6/29.3; H/H (03/27): 9.6/30.2; H/H (03/26): 8.2/25.9 Iron: 36, TIBC: 285, %14, Ferritin: 48.5 Endoscopy (03/21): monillial esophagitis. Cells for cytology obtained. Erosive gastropahty. Normal examined duodenum-->negative cytology cells Patient has had 3 units of PRBC transfused during hospitalization Consult: Dr. Ag (GI) on board-->help appreciated---> can patient start anticoagulation? CT Abd/pelvis: no evidence of intraperitoneal hemorrhage or retroperitoneal hemorrhage Ferrous sulfate 325mg PO BID 2.) Acute exacerbation of Congestive Heart Failure Consult: Dr. Canales (Cardiology) on board-->help appreciated * Patient is not a candidate for valve replacement Echocardiogram (03/21/17): left ventricle systolic function is severely impaired , EF: 25%, spetal motion consistent with post operative state. Global hypokinesis of the left ventricle. Grade II-pseudonormal filling. Severe valvuar aortic stenosis. Mitral regurgitation is moderate. Severe pulmonary hypertension Per cardiology, patient is not a surgical candidate for aortic stenosis Amiodarone 200mg PO daily Lasic 20mg IVP ONCE PRN Chest X-ray (03/27/17): Bilateral perhilar opacity, left greater than right. Congestive change. No pleural effusion. Nonspecific finding. Possible congestive heart failure/pulmonary edema. Rule out pneumonia. 3.) Ascites Possibly secondary to CHF and Acute Kidney Injury Intervential Radiology Consult, Dr. Frnaco Skaggs --> Help Appreciated Paracentesis performed 03/27/17: removed 2L of dark yellow fluid; Per Dr. Ag's note the total PMN count on the fluid was 216, which is below the threshold for SBP (Must be below 250). - f/u LDH of peritoneal fluid - f/u glucose of peritoneal fluid - f/u albumin of peritoneal fluid - f/u body fluid culture/smear of peritoneal fluid 4.) Atrial fibrillation Amiodarone 200mg PO daily patient is off Xarelto secondary to GI workup r/o bleed 5.) Acute Kidney Injury Consult: Dr. Reynolds (nephrology) on board-->help appreciated Improving Off lasix/juan jose/arb/statin 6.) Hypertension Patient is borderline hypotensive. 7.) History of CABG Continue medical management as per cardiology. 8.) Diabetes Mellitus with hyperglycemia Hgba1c: 7.2 Lantus 10 units subq daily 9.) Hyperlipidemia off statin 10.) Peripheral vascular disease Patient is on Pletal 100mg PO BID 11.) Esophageal Candidiasis On Diflucan 200mg IV q daily (active since 03/22/17) 12.) Urinary Tract Infection due to extended spectrum beta lactamase (ESBL) producing Escherichia coli primaxin 250mg IV 6 hours (active since 03/22/17) urine culture (03/20/17): +ESBL f/u Repeat Urine Culture 13.) Chronic Cough and acute bronchitis now productive phlegm producing Started 03/27 on Phenergan/Codeine Oral Syrup 5ml PO Q4 PRN Sputum Culture: Few polymorphonuclear WBS, few epithelial cells, no organisms seen. 14.) Prophylaxis Protonix 40mg PO daily Discontinued heparin 5000 units subq 12 hours PT/OT evaluation 03/27/17: RN deferred because patient was going to have tapping of the belly. Palliative Care Consult placed on 03/27/17
[2017-03-30] MEDS: (Lantus) Insulin Glargine, Recombinant SC SCH (11:00)
[2017-03-30] MEDS: Acetylcysteine 20% Inhal Soln (4ml) INH SCH (16:36)
[2017-03-30] MEDS: Promethazine/Cod 6.25mg-10mg/5ml Syr UD PO PRN (17:12)
--- NOTE | 2017-03-30 17:21 | CP.PCM.PN ---
Subjective - Date & Time of Evaluation Date of Evaluation: 03/30/17 Time of Evaluation: 12:30 - Subjective Subjective: no new complaints. Objective - Vital Signs/Intake and Output Vital Signs (last 24 hours): Temp Pulse Resp BP Pulse Ox 98.6 F 98 H 20 97/68 L 96 03/30/17 16:00 03/30/17 16:00 03/30/17 16:00 03/30/17 16:00 03/30/17 16:00 Intake and Output: 03/30/17 03/30/17 06:59 18:59 Intake Total 250 Output Total 700 Balance -450 - Medications Medications: Current Medications Acetylcysteine (Acetylcysteine 20%) 4 ml INH RQ8 [facility] Albuterol/Ipratropium (Duoneb 3 Mg/0.5 Mg (3 Ml) Ud) 3 ml INH RQ8 [facility] Last Admin: 03/30/17 16:18 Dose: 3 ml Amiodarone HCl (Cordarone) 200 mg PO DAILY [facility] Last Admin: 03/30/17 09:35 Dose: 200 mg Cilostazol (Pletal) 100 mg PO BID [facility] Last Admin: 03/30/17 17:09 Dose: 100 mg Collagenase (Santyl) 1 gm TOP DAILY [facility] Last Admin: 03/30/17 09:36 Dose: 1 applic Docusate Sodium (Colace) 100 mg PO DAILY [facility] Last Admin: 03/30/17 09:35 Dose: 100 mg Ferrous Sulfate (Feosol) 325 mg PO BID [facility] Last Admin: 03/30/17 17:15 Dose: 325 mg Furosemide (Lasix) 40 mg IVP DAILY [facility] Last Admin: 03/30/17 09:34 Dose: 40 mg Gabapentin (Neurontin) 100 mg PO BID [facility] Last Admin: 03/30/17 17:15 Dose: 100 mg Guaifenesin (Mucinex La) 600 mg PO BID [facility] Last Admin: 03/30/17 17:08 Dose: 600 mg Fluconazole (Diflucan Iv 200 Mg/100 Ml Ns) 100 mls @ 100 mls/hr IVPB DAILY [facility] Stop: 04/04/17 10:59 Last Admin: 03/30/17 09:38 Dose: 100 mls/hr Imipenem/Cilastatin Sodium 250 (mg/ Sodium Chloride) 100 mls @ 100 mls/hr IVPB Q6H [facility] Last Admin: 03/30/17 17:04 Dose: 100 mls/hr Insulin Aspart (Novolog) 0 unit SC ACHS [facility] PRN Reason: Protocol Last Admin: 03/30/17 17:09 Dose: 2 unit Insulin Glargine (Lantus) 10 unit SC DAILY [facility] Last Admin: 03/30/17 11:00 Dose: 10 u Mupirocin (Bactroban Ointment) 0 gm TOP BID [facility] Last Admin: 03/30/17 17:05 Dose: 1 applic Pantoprazole Sodium (Protonix Ec Tab) 40 mg PO DAILY [facility] Last Admin: 03/30/17 09:35 Dose: 40 mg Promethazine HCl/Codeine (Phenergan/Codeine Oral Syrup) 5 ml PO Q4 PRN PRN Reason: Cough Last Admin: 03/30/17 17:12 Dose: 5 ml Fluticasone/Salmeterol (Advair Diskus 100/50) 1 puff IH RQD [facility] Last Admin: 03/30/17 08:35 Dose: 1 puff - Labs Labs: 03/30/17 06:15 03/30/17 06:15 PT 15.4 SECONDS (9.7-12.2) H 03/27/17 06:31 INR 1.4 03/27/17 06:31 APTT 32 SECONDS (21-34) 03/26/17 06:03 - Constitutional Appears: Non-toxic, Chronically Ill - Head Exam Head Exam: NORMAL INSPECTION - Eye Exam Eye Exam: Normal appearance - ENT Exam ENT Exam: Mucous Membranes Moist - Neck Exam Neck Exam: Full ROM - Respiratory Exam Respiratory Exam: Decreased Breath Sounds - Cardiovascular Exam Cardiovascular Exam: Irregular Rhythm - GI/Abdominal Exam GI & Abdominal Exam: Normal Bowel Sounds - Rectal Exam Rectal Exam: Deferred - Extremities Exam Extremities Exam: absent: Pedal Edema - Back Exam Back Exam: NORMAL INSPECTION - Neurological Exam Neurological Exam: Alert - Psychiatric Exam Psychiatric exam: Normal Affect - Skin Skin Exam: Normal Color Assessment and Plan (1) Acute exacerbation of CHF (congestive heart failure) Assessment & Plan: continue conservative therapy with diuretics. attempt to titrate betablocker. Status: Acute (2) Anemia Assessment & Plan: holding anticoagulation Status: Acute (3) A-fib Assessment & Plan: controled Status: Acute (4) Aortic stenosis Assessment & Plan: medical management Status: Acute
[2017-03-31] MEDS: Albuterol-Ipratrop 3 mg / 0.5 (3 ml) UD INH SCH ×3 (00:16→16:03)
[2017-03-31] MEDS: Acetylcysteine 20% Inhal Soln (4ml) INH SCH ×3 (00:16→16:03)
[2017-03-31] MEDS: Imipenem/Cilastatin 250 MG in Sodium Chloride 100 ML IVPB SCH ×3 (06:00→11:36)
[2017-03-31 06:49] LABS: ALBUMIN 2.6 g/dL (3.5-5.0)
[2017-03-31 06:52] LABS: ALB/GLOB RATIO 0.7 (1.0-2.1)
[2017-03-31 06:53] LABS: CALCIUM 8.3 mg/dl (8.6-10.4)
[2017-03-31 06:59] LABS: BASO # 0.1 K/uL (0.0-0.2); BASO % 0.9 % (0.0-2.0); EOS # 0.4 K/uL (0.0-0.7); EOS % 5.3 % (0.0-4.0); HEMOGLOBIN 9.4 g/dL (12.0-18.0); LYMPH # 0.8 K/uL (1.0-4.3); LYMPH % 11.4 % (20.0-40.0); MEAN CELL VOLUME 85.9 fL (80.0-94.0); MEAN CORPUSCULAR HEMOGLOBIN 27.1 pg (27.0-31.0); MEAN CORPUSCULAR HGB CONC 31.5 g/dL (33.0-37.0); MEAN PLATELET VOLUME 8.8 fL (7.2-11.7); MONO # 0.4 K/uL (0.0-0.8); MONO % 5.8 % (0.0-10.0); NEUT # 5.1 K/uL (1.8-7.0); NEUT % 76.6 % (50.0-75.0); NRBC % 0.1 % (0.0-2.0); RBC 3.47 Mil/uL (4.40-5.90); RED CELL DISTRIBUTION WIDTH 18.2 % (11.5-14.5); WHITE BLOOD COUNT 6.7 K/uL (4.8-10.8)
[2017-03-31] MEDS: (Novolog) Insulin Aspart, Recombinant 100 u/ml 10 ml vial SC SCH ×5 (07:52→22:12)
[2017-03-31] MEDS: Fluticasone-Salmeterol 100-50mcg Diskus IH SCH (08:05)
--- NOTE | 2017-03-31 08:37 | CP.PCM.PN ---
Subjective - Date & Time of Evaluation Date of Evaluation: 03/31/17 Time of Evaluation: 08:34 - Subjective Subjective: Patient seen bedside regarding B/L TMA sites. He is seen bedside in the ICU in [facility]. Patient appears more alert today, however does not know what day it is. Denies any pain or complications to LE. Denies F/C/N/V/SOB, just complains of cough. Objective - Vital Signs/Intake and Output Vital Signs (last 24 hours): Temp Pulse Resp BP Pulse Ox 98.2 F 98 H 15 88/54 L 98 03/31/17 04:00 03/31/17 04:00 03/31/17 04:00 03/31/17 00:00 03/31/17 04:00 Intake and Output: 03/31/17 03/31/17 06:59 18:59 Intake Total 500 Output Total 500 Balance 0 - Medications Medications: Current Medications Acetylcysteine (Acetylcysteine 20%) 4 ml INH RQ8 [facility] Last Admin: 03/31/17 07:57 Dose: 4 ml Albuterol/Ipratropium (Duoneb 3 Mg/0.5 Mg (3 Ml) Ud) 3 ml INH RQ8 [facility] Last Admin: 03/31/17 07:57 Dose: 3 ml Amiodarone HCl (Cordarone) 200 mg PO DAILY [facility] Last Admin: 03/30/17 09:35 Dose: 200 mg Cilostazol (Pletal) 100 mg PO BID [facility] Last Admin: 03/30/17 17:09 Dose: 100 mg Collagenase (Santyl) 1 gm TOP DAILY [facility] Last Admin: 03/30/17 09:36 Dose: 1 applic Docusate Sodium (Colace) 100 mg PO DAILY [facility] Last Admin: 03/30/17 09:35 Dose: 100 mg Ferrous Sulfate (Feosol) 325 mg PO BID [facility] Last Admin: 03/30/17 17:15 Dose: 325 mg Furosemide (Lasix) 40 mg IVP DAILY [facility] Last Admin: 03/30/17 09:34 Dose: 40 mg Gabapentin (Neurontin) 100 mg PO BID [facility] Last Admin: 03/30/17 17:15 Dose: 100 mg Guaifenesin (Mucinex La) 600 mg PO BID [facility] Last Admin: 03/30/17 17:08 Dose: 600 mg Fluconazole (Diflucan Iv 200 Mg/100 Ml Ns) 100 mls @ 100 mls/hr IVPB DAILY [facility] Stop: 04/04/17 10:59 Last Admin: 03/30/17 09:38 Dose: 100 mls/hr Imipenem/Cilastatin Sodium 250 (mg/ Sodium Chloride) 100 mls @ 100 mls/hr IVPB Q6H [facility] Last Admin: 03/31/17 06:00 Dose: 100 mls/hr Insulin Aspart (Novolog) 0 unit SC ACHS [facility] PRN Reason: Protocol Last Admin: 03/31/17 07:52 Dose: Not Given Insulin Glargine (Lantus) 10 unit SC DAILY [facility] Last Admin: 03/30/17 11:00 Dose: 10 u Mupirocin (Bactroban Ointment) 0 gm TOP BID [facility] Last Admin: 03/30/17 17:05 Dose: 1 applic Pantoprazole Sodium (Protonix Ec Tab) 40 mg PO DAILY [facility] Last Admin: 03/30/17 09:35 Dose: 40 mg Promethazine HCl/Codeine (Phenergan/Codeine Oral Syrup) 5 ml PO Q4 PRN PRN Reason: Cough Last Admin: 03/30/17 17:12 Dose: 5 ml Fluticasone/Salmeterol (Advair Diskus 100/50) 1 puff IH RQD [facility] Last Admin: 03/31/17 08:05 Dose: 1 puff - Labs Labs: 03/31/17 06:28 03/31/17 06:28 PT 15.4 SECONDS (9.7-12.2) H 03/27/17 06:31 INR 1.4 03/27/17 06:31 APTT 32 SECONDS (21-34) 03/26/17 06:03 - Constitutional Appears: Well, Non-toxic, No Acute Distress - Extremities Exam Additional comments: Le exam: Vascular: Dp and PT pulses non-palpable, CFT >5sec to dorsal and plantar flaps , temperature cool to touch B/L. Neuro: Gross sensation diminished. Derm: Right TMA site with eschar at medial aspect of incision and hyerpkeratotic tissue at lateral portion, no drainage, no probe to bone, no malodor. Left TMA site with no dehiscence, no drainage, skin edges with minimal hyerpkeratotic tissue. MSK: B/L TMA - Neurological Exam Neurological Exam: Alert, Awake, Oriented x3 - Psychiatric Exam Psychiatric exam: Normal Affect, Normal Mood Assessment and Plan - Assessment and Plan (Free Text) Assessment: 71 y/o male with B/L TMA Plan: patient evaluated and chart reviewed discussed in detail with attending Dr. Barnes TMA dressed with bactroban, 4x4 gauze, kerlix to b/l foot no surgical intervention planned at this time. will continue to follow while in hospital.
[2017-03-31] MEDS: Collagenase 250 Units/gm Ointment(30 gm) TOP SCH (09:16)
[2017-03-31] MEDS: (Lantus) Insulin Glargine, Recombinant SC SCH (09:22)
[2017-03-31] MEDS: guaiFENesin 600 mg ER Tab PO SCH ×2 (09:23→17:06)
[2017-03-31] MEDS: Cilostazol 100 mg Tab UD PO SCH ×2 (09:23→17:06)
[2017-03-31] MEDS: Fluconazole IV 200mg/100 ml NS 100 ML IVPB SCH (09:24)
--- NOTE | 2017-03-31 10:00 | CP.PCM.PN ---
Subjective - Date & Time of Evaluation Date of Evaluation: 03/31/17 Time of Evaluation: 09:58 - Subjective Subjective: Patient denies having nausea, vomiting, abdominal pain. He is unsure when he last had a bowel movement. Objective - Vital Signs/Intake and Output Vital Signs (last 24 hours): Temp Pulse Resp BP Pulse Ox 98.2 F 98 H 15 98/57 L 98 03/31/17 04:00 03/31/17 04:00 03/31/17 04:00 03/31/17 09:22 03/31/17 04:00 Intake and Output: 03/31/17 03/31/17 06:59 18:59 Intake Total 500 Output Total 500 Balance 0 - Medications Medications: Current Medications Acetylcysteine (Acetylcysteine 20%) 4 ml INH RQ8 [facility] Last Admin: 03/31/17 07:57 Dose: 4 ml Albuterol/Ipratropium (Duoneb 3 Mg/0.5 Mg (3 Ml) Ud) 3 ml INH RQ8 [facility] Last Admin: 03/31/17 07:57 Dose: 3 ml Amiodarone HCl (Cordarone) 200 mg PO DAILY [facility] Last Admin: 03/31/17 09:22 Dose: 200 mg Cilostazol (Pletal) 100 mg PO BID [facility] Last Admin: 03/31/17 09:23 Dose: 100 mg Collagenase (Santyl) 1 gm TOP DAILY [facility] Last Admin: 03/31/17 09:16 Dose: 1 applic Docusate Sodium (Colace) 100 mg PO DAILY [facility] Last Admin: 03/31/17 09:23 Dose: 100 mg Ferrous Sulfate (Feosol) 325 mg PO BID [facility] Last Admin: 03/31/17 09:23 Dose: 325 mg Furosemide (Lasix) 40 mg IVP DAILY [facility] Last Admin: 03/31/17 09:22 Dose: 40 mg Gabapentin (Neurontin) 100 mg PO BID [facility] Last Admin: 03/31/17 09:22 Dose: 100 mg Guaifenesin (Mucinex La) 600 mg PO BID [facility] Last Admin: 03/31/17 09:23 Dose: 600 mg Fluconazole (Diflucan Iv 200 Mg/100 Ml Ns) 100 mls @ 100 mls/hr IVPB DAILY [facility] Stop: 04/04/17 10:59 Last Admin: 03/31/17 09:24 Dose: 100 mls/hr Imipenem/Cilastatin Sodium 250 (mg/ Sodium Chloride) 100 mls @ 100 mls/hr IVPB Q6H [facility] Last Admin: 03/31/17 06:00 Dose: 100 mls/hr Insulin Aspart (Novolog) 0 unit SC ACHS [facility] PRN Reason: Protocol Last Admin: 03/31/17 07:52 Dose: Not Given Insulin Glargine (Lantus) 10 unit SC DAILY [facility] Last Admin: 03/31/17 09:22 Dose: 10 u Mupirocin (Bactroban Ointment) 0 gm TOP BID [facility] Last Admin: 03/31/17 09:17 Dose: 1 applic Pantoprazole Sodium (Protonix Ec Tab) 40 mg PO DAILY [facility] Last Admin: 03/30/17 09:35 Dose: 40 mg Promethazine HCl/Codeine (Phenergan/Codeine Oral Syrup) 5 ml PO Q4 PRN PRN Reason: Cough Last Admin: 03/30/17 17:12 Dose: 5 ml Fluticasone/Salmeterol (Advair Diskus 100/50) 1 puff IH RQD [facility] Last Admin: 03/31/17 08:05 Dose: 1 puff - Labs Labs: 03/31/17 06:28 03/31/17 06:28 PT 15.4 SECONDS (9.7-12.2) H 03/27/17 06:31 INR 1.4 03/27/17 06:31 APTT 32 SECONDS (21-34) 03/26/17 06:03 - Constitutional Appears: No Acute Distress - Head Exam Head Exam: ATRAUMATIC, NORMOCEPHALIC - Eye Exam Eye Exam: EOMI, PERRL - Neck Exam Neck Exam: absent: Lymphadenopathy, Thyromegaly - Respiratory Exam Respiratory Exam: NORMAL BREATHING PATTERN. absent: Rales, Rhonchi, Wheezes - Cardiovascular Exam Cardiovascular Exam: REGULAR RHYTHM, +S1, +S2. absent: Gallop, Rubs, Murmur - GI/Abdominal Exam GI & Abdominal Exam: Distended, Soft, Normal Bowel Sounds. absent: Tenderness, Mass, Organomegaly - Rectal Exam Rectal Exam: Deferred - Extremities Exam Extremities Exam: Pedal Edema Additional comments: 1+ bilateral Assessment and Plan (1) Anemia Assessment & Plan: Hemoglobin is stable. Plan is for colonoscopy when patient is cleared by cardiology. Status: Acute
--- NOTE | 2017-03-31 10:29 | CP.PCM.PN ---
Subjective - Date & Time of Evaluation Date of Evaluation: 03/31/17 Time of Evaluation: 10:27 - Subjective Subjective: c/o N, V Less dypneic UO adequate Creat 1.7- sl higher with IV lasix Remains edematous; no other new complaints Objective - Vital Signs/Intake and Output Vital Signs (last 24 hours): Temp Pulse Resp BP Pulse Ox 98.2 F 98 H 15 98/57 L 98 03/31/17 04:00 03/31/17 04:00 03/31/17 04:00 03/31/17 09:22 03/31/17 04:00 Intake and Output: 03/31/17 03/31/17 06:59 18:59 Intake Total 500 Output Total 500 Balance 0 - Medications Medications: Current Medications Acetylcysteine (Acetylcysteine 20%) 4 ml INH RQ8 [facility] Last Admin: 03/31/17 07:57 Dose: 4 ml Albuterol/Ipratropium (Duoneb 3 Mg/0.5 Mg (3 Ml) Ud) 3 ml INH RQ8 [facility] Last Admin: 03/31/17 07:57 Dose: 3 ml Amiodarone HCl (Cordarone) 200 mg PO DAILY [facility] Last Admin: 03/31/17 09:22 Dose: 200 mg Cilostazol (Pletal) 100 mg PO BID [facility] Last Admin: 03/31/17 09:23 Dose: 100 mg Collagenase (Santyl) 1 gm TOP DAILY [facility] Last Admin: 03/31/17 09:16 Dose: 1 applic Docusate Sodium (Colace) 100 mg PO DAILY [facility] Last Admin: 03/31/17 09:23 Dose: 100 mg Ferrous Sulfate (Feosol) 325 mg PO BID [facility] Last Admin: 03/31/17 09:23 Dose: 325 mg Furosemide (Lasix) 40 mg IVP DAILY [facility] Last Admin: 03/31/17 09:22 Dose: 40 mg Gabapentin (Neurontin) 100 mg PO BID [facility] Last Admin: 03/31/17 09:22 Dose: 100 mg Guaifenesin (Mucinex La) 600 mg PO BID [facility] Last Admin: 03/31/17 09:23 Dose: 600 mg Fluconazole (Diflucan Iv 200 Mg/100 Ml Ns) 100 mls @ 100 mls/hr IVPB DAILY [facility] Stop: 04/04/17 10:59 Last Admin: 03/31/17 09:24 Dose: 100 mls/hr Imipenem/Cilastatin Sodium 250 (mg/ Sodium Chloride) 100 mls @ 100 mls/hr IVPB Q6H [facility] Last Admin: 03/31/17 06:00 Dose: 100 mls/hr Insulin Aspart (Novolog) 0 unit SC ACHS [facility] PRN Reason: Protocol Last Admin: 03/31/17 07:52 Dose: Not Given Insulin Glargine (Lantus) 10 unit SC DAILY [facility] Last Admin: 03/31/17 09:22 Dose: 10 u Mupirocin (Bactroban Ointment) 0 gm TOP BID [facility] Last Admin: 03/31/17 09:17 Dose: 1 applic Pantoprazole Sodium (Protonix Ec Tab) 40 mg PO DAILY [facility] Last Admin: 03/30/17 09:35 Dose: 40 mg Promethazine HCl/Codeine (Phenergan/Codeine Oral Syrup) 5 ml PO Q4 PRN PRN Reason: Cough Last Admin: 03/30/17 17:12 Dose: 5 ml Fluticasone/Salmeterol (Advair Diskus 100/50) 1 puff IH RQD [facility] Last Admin: 03/31/17 08:05 Dose: 1 puff - Labs Labs: 03/31/17 06:28 03/31/17 06:28 PT 15.4 SECONDS (9.7-12.2) H 03/27/17 06:31 INR 1.4 03/27/17 06:31 APTT 32 SECONDS (21-34) 03/26/17 06:03 - Constitutional Appears: No Acute Distress, Chronically Ill - Head Exam Head Exam: ATRAUMATIC, NORMAL INSPECTION - Eye Exam Eye Exam: EOMI, Normal appearance - Neck Exam Neck Exam: Normal Inspection. absent: Tenderness - Respiratory Exam Respiratory Exam: Rales, NORMAL BREATHING PATTERN - Cardiovascular Exam Cardiovascular Exam: REGULAR RHYTHM, +S1 - GI/Abdominal Exam GI & Abdominal Exam: Soft. absent: Tenderness - Extremities Exam Extremities Exam: Pedal Edema, Tenderness - Neurological Exam Neurological Exam: Awake, CN II-XII Intact - Skin Skin Exam: Dry, Warm Assessment and Plan (1) LETICIA (acute kidney injury) Status: Acute (2) UTI due to extended-spectrum beta lactamase (ESBL) producing Escherichia coli Status: Acute (3) Diabetic peripheral angiopathy Status: Acute (4) CHF (congestive heart failure) Status: Acute (5) CKD (chronic kidney disease) stage 3, GFR 30-59 ml/min Status: Acute - Assessment and Plan (Free Text) Plan: Continue IV lasix Eventual switch to po Monitor lytes
[2017-03-31] MEDS: Pantoprazole 40 mg EC Tab PO SCH (11:00)
[2017-03-31] MEDS ORDERED: Bisacodyl 5mg EC Tab PO ONE (11:52)
--- NOTE | 2017-03-31 12:45 | CP.PCM.PN ---
<Nasrin Guzman - Last Filed: 03/31/17 18:35> Subjective - Date & Time of Evaluation Date of Evaluation: 03/31/17 Time of Evaluation: 12:44 - Subjective Subjective: Medicine Progress Note- Dr. Leonard Service Patient was seen and examined at bedside in no acute distress. Patient reports feeling better and his cough has improved. He reports he is eating well. He states he hasn't had a bowel movement for 7 days. Patient denies having chest pain, abdominal pain, palpitations, nausea, and vomiting. Objective - Vital Signs/Intake and Output Vital Signs (last 24 hours): Temp Pulse Resp BP Pulse Ox 97.8 F 106 H 18 98/57 L 97 03/31/17 08:00 03/31/17 08:00 03/31/17 08:00 03/31/17 09:22 03/31/17 08:00 Intake and Output: 03/31/17 03/31/17 06:59 18:59 Intake Total 500 Output Total 500 Balance 0 - Medications Medications: Current Medications Acetylcysteine (Acetylcysteine 20%) 4 ml INH RQ8 [facility] Last Admin: 03/31/17 07:57 Dose: 4 ml Albuterol/Ipratropium (Duoneb 3 Mg/0.5 Mg (3 Ml) Ud) 3 ml INH RQ8 [facility] Last Admin: 03/31/17 07:57 Dose: 3 ml Amiodarone HCl (Cordarone) 200 mg PO DAILY [facility] Last Admin: 03/31/17 09:22 Dose: 200 mg Cilostazol (Pletal) 100 mg PO BID [facility] Last Admin: 03/31/17 09:23 Dose: 100 mg Collagenase (Santyl) 1 gm TOP DAILY [facility] Last Admin: 03/31/17 09:16 Dose: 1 applic Docusate Sodium (Colace) 100 mg PO DAILY [facility] Last Admin: 03/31/17 09:23 Dose: 100 mg Ferrous Sulfate (Feosol) 325 mg PO BID [facility] Last Admin: 03/31/17 09:23 Dose: 325 mg Furosemide (Lasix) 40 mg IVP DAILY [facility] Last Admin: 03/31/17 09:22 Dose: 40 mg Gabapentin (Neurontin) 100 mg PO BID [facility] Last Admin: 03/31/17 09:22 Dose: 100 mg Guaifenesin (Mucinex La) 600 mg PO BID [facility] Last Admin: 03/31/17 09:23 Dose: 600 mg Fluconazole (Diflucan Iv 200 Mg/100 Ml Ns) 100 mls @ 100 mls/hr IVPB DAILY [facility] Stop: 04/04/17 10:59 Last Admin: 03/31/17 09:24 Dose: 100 mls/hr Insulin Aspart (Novolog) 0 unit SC ACHS [facility] PRN Reason: Protocol Last Admin: 03/31/17 11:41 Dose: 2 unit Insulin Glargine (Lantus) 10 unit SC DAILY [facility] Last Admin: 03/31/17 09:22 Dose: 10 u Mupirocin (Bactroban Ointment) 0 gm TOP BID [facility] Last Admin: 03/31/17 09:17 Dose: 1 applic Pantoprazole Sodium (Protonix Ec Tab) 40 mg PO DAILY [facility] Last Admin: 03/31/17 11:00 Dose: 40 mg Promethazine HCl/Codeine (Phenergan/Codeine Oral Syrup) 5 ml PO Q4 PRN PRN Reason: Cough Last Admin: 03/30/17 17:12 Dose: 5 ml Fluticasone/Salmeterol (Advair Diskus 100/50) 1 puff IH RQD [facility] Last Admin: 03/31/17 08:05 Dose: 1 puff - Labs Labs: 03/31/17 06:28 03/31/17 06:28 PT 15.4 SECONDS (9.7-12.2) H 03/27/17 06:31 INR 1.4 03/27/17 06:31 APTT 32 SECONDS (21-34) 03/26/17 06:03 - Constitutional Appears: No Acute Distress - Head Exam Head Exam: NORMAL INSPECTION, NORMOCEPHALIC - Eye Exam Eye Exam: EOMI, Normal appearance - ENT Exam ENT Exam: Mucous Membranes Moist - Neck Exam Neck Exam: Normal Inspection - Respiratory Exam Respiratory Exam: Rhonchi, Wheezes, NORMAL BREATHING PATTERN. absent: Clear to Ausculation Bilateral - Cardiovascular Exam Cardiovascular Exam: +S1, +S2 - GI/Abdominal Exam GI & Abdominal Exam: Distended, Firm, Normal Bowel Sounds - Extremities Exam Extremities Exam: Pedal Edema. absent: Calf Tenderness, Normal Inspection ( pitting edema extending up to hips b/l; pitting edema on arms b/l) - Neurological Exam Neurological Exam: Alert, Awake, Oriented x3 - Psychiatric Exam Psychiatric exam: Normal Affect, Normal Mood - Skin Skin Exam: Intact, Normal Color, Warm Assessment and Plan (1) Acute exacerbation of CHF (congestive heart failure) Assessment & Plan: Consult: Dr. Canales (Cardiology) on board-->help appreciated * Patient is not a candidate for valve replacement Echocardiogram (03/21/17): left ventricle systolic function is severely impaired , EF: 25%, spetal motion consistent with post operative state. Global hypokinesis of the left ventricle. Grade II-pseudonormal filling. Severe valvular aortic stenosis. Mitral regurgitation is moderate. Severe pulmonary hypertension Per cardiology, patient is not a surgical candidate for aortic stenosis Amiodarone 200mg PO daily Lasix 40mg IVP Daily Chest X-ray (03/27/17): Bilateral perihilar opacity, left greater than right. Congestive change. No pleural effusion. Nonspecific finding. Possible congestive heart failure/pulmonary edema. Rule out pneumonia. Pillow to elevate scrotum ordered 03/31/17 Status: Acute (2) Anemia Assessment & Plan: Acute anemia, likely due to acute blood loss Stable H/H (03/31) 9.4/29.8; (03/28): 9.6/29.3; H/H (03/27): 9.6/30.2; H/H (03/26): 8.2/25.9 Iron: 36, TIBC: 285, %14, Ferritin: 48.5 Endoscopy (03/21): monillial esophagitis. Cells for cytology obtained. Erosive gastropahty. Normal examined duodenum-->negative cytology cells Patient has had 3 units of PRBC transfused during hospitalization Consult: Dr. Ag (GI) on board-->help appreciated CT Abd/pelvis: no evidence of intraperitoneal hemorrhage or retroperitoneal hemorrhage Ferrous sulfate 325mg PO BID Status: Chronic (3) Ascites Assessment & Plan: Possibly secondary to CHF and Acute Kidney Injury Intervential Radiology Consult, Dr. Franco Skaggs --> Help Appreciated Paracentesis performed 03/27/17: removed 2L of dark yellow fluid; Per Dr. Ag's note the total PMN count on the fluid was 216, which is below the threshold for SBP (Must be below 250). - LDH of peritoneal fluid 82 - Glucose of peritoneal fluid 124 - Albumin of peritoneal fluid 1.4 - Peritoneal Fluid: Clear; WBC- 309, RBS 1225, Total Cell Count-100, Neutrophil-70, Lymphocyte-25, Monocyte/Macrophage-5 - Fluid culture/smear of peritoneal fluid- no growth detected Status: Acute (4) UTI (urinary tract infection) Assessment & Plan: Discontinued 03/31/17- Primaxin 250mg IV 6 hours (active since 03/22/17) Urine culture (03/20/17): +ESBL Repeat Urine Culture (03/27/17)- No growth Status: Acute (5) A-fib Assessment & Plan: Amiodarone 200mg PO daily Patient is off Xarelto secondary to GI workup r/o bleed Status: Acute (6) Cough Assessment & Plan: Acute on chronic cough, acute bronchitis, suspected pneumonia Started Phenergan/Codeine oral syrup 5ml PO Q4 PRN Sputum Culture: Few polymorphonuclear WBS, few epithelial cells, no organisms seen. Status: Acute (7) LETICIA (acute kidney injury) Assessment & Plan: Consult: Dr. Reynolds (nephrology) on board-->help appreciated BUN 62, Cr 1.7 on 03/31/17 Off Nadir/arb/statin Status: Acute (8) HTN (hypertension) Assessment & Plan: Patient is borderline hypotensive. 97/67 on 03/31/17 Status: Acute (9) Hx of CABG Assessment & Plan: Continue medical management as per cardiology. Status: Acute (10) Diabetes Assessment & Plan: Hgba1c: 7.2 Lantus 10 units subq daily Status: Chronic (11) Hyperlipidemia Assessment & Plan: Discontinued statin Status: Chronic (12) Peripheral vascular disease Assessment & Plan: Patient is on Pletal 100mg PO BID Status: Chronic (13) Esophageal candidiasis Assessment & Plan: On Diflucan 200mg IV q daily (active since 03/22/17); 5 more doses (03/31/17) Status: Acute (14) Constipation Assessment & Plan: Constipated for 7 days Dulcolax 5mg PO once on 03/31/17 Abdominal xray to r/o obstruction Status: Acute (15) Prophylactic measure Assessment & Plan: Protonix 40mg PO daily Discontinued heparin 5000 units subq 12 hours PT/OT evaluation 03/27/17: RN deferred because patient was going to have tapping of the belly. Palliative Care Consult placed on 03/27/17 Status: Acute <Noemí Leonard V - Last Filed: 03/31/17 23:16> Objective - Vital Signs/Intake and Output Vital Signs (last 24 hours): Temp Pulse Resp BP Pulse Ox 98.2 F 98 H 20 97/67 L 95 03/31/17 15:51 03/31/17 16:28 03/31/17 15:51 03/31/17 15:51 03/31/17 15:51 Intake and Output: 03/31/17 04/01/17 18:59 06:59 Intake Total 200 Output Total 800 Balance -600 - Medications Medications: Current Medications Acetylcysteine (Acetylcysteine 20%) 4 ml INH RQ8 [facility] Last Admin: 03/31/17 16:03 Dose: 4 ml Albuterol/Ipratropium (Duoneb 3 Mg/0.5 Mg (3 Ml) Ud) 3 ml INH RQ8 [facility] Last Admin: 03/31/17 16:03 Dose: 3 ml Amiodarone HCl (Cordarone) 200 mg PO DAILY [facility] Last Admin: 03/31/17 09:22 Dose: 200 mg Cilostazol (Pletal) 100 mg PO BID [facility] Last Admin: 03/31/17 17:06 Dose: 100 mg Collagenase (Santyl) 1 gm TOP DAILY [facility] Last Admin: 03/31/17 09:16 Dose: 1 applic Docusate Sodium (Colace) 100 mg PO DAILY [facility] Last Admin: 03/31/17 09:23 Dose: 100 mg Ferrous Sulfate (Feosol) 325 mg PO BID [facility] Last Admin: 03/31/17 17:06 Dose: 325 mg Furosemide (Lasix) 40 mg IVP DAILY [facility] Last Admin: 03/31/17 09:22 Dose: 40 mg Gabapentin (Neurontin) 100 mg PO BID [facility] Last Admin: 03/31/17 17:06 Dose: 100 mg Guaifenesin (Mucinex La) 600 mg PO BID [facility] Last Admin: 03/31/17 17:06 Dose: 600 mg Heparin Sodium (Porcine) (Heparin) 5,000 units SC Q8 [facility] Fluconazole (Diflucan Iv 200 Mg/100 Ml Ns) 100 mls @ 100 mls/hr IVPB DAILY [facility] Stop: 04/04/17 10:59 Last Admin: 03/31/17 09:24 Dose: 100 mls/hr Imipenem/Cilastatin Sodium 250 (mg/ Dextrose) 100 mls @ 100 mls/hr IVPB Q8H [facility] Insulin Aspart (Novolog) 0 unit SC ACHS [facility] PRN Reason: Protocol Last Admin: 03/31/17 22:12 Dose: Not Given Insulin Glargine (Lantus) 10 unit SC DAILY [facility] Last Admin: 03/31/17 09:22 Dose: 10 u Mupirocin (Bactroban Ointment) 0 gm TOP BID [facility] Last Admin: 03/31/17 17:13 Dose: 1 applic Pantoprazole Sodium (Protonix Ec Tab) 40 mg PO DAILY [facility] Last Admin: 03/31/17 11:00 Dose: 40 mg Promethazine HCl/Codeine (Phenergan/Codeine Oral Syrup) 5 ml PO Q4 PRN PRN Reason: Cough Last Admin: 03/30/17 17:12 Dose: 5 ml Fluticasone/Salmeterol (Advair Diskus 100/50) 1 puff IH RQD [facility] Last Admin: 03/31/17 08:05 Dose: 1 puff - Labs Labs: 03/31/17 06:28 03/31/17 06:28 PT 15.4 SECONDS (9.7-12.2) H 03/27/17 06:31 INR 1.4 03/27/17 06:31 APTT 32 SECONDS (21-34) 03/26/17 06:03 Attending/Attestation - Attestation I have personally seen and examined this patient.: Yes I have fully participated in the care of the patient.: Yes I have reviewed all pertinent clinical information, including history, physical exam and plan: Yes Notes (Text): Patient seen, examined, and case discussed with day-time contracts intern. Patient seen, examined while in the ICU awaiting for the bed upstairs. Patient currently on IV abx for both pneumonia and UTI. Patient is on IV abx for candidasis noted on endoscopy. Patient ordered for obstructive series r/o obstruction since he has not have a bowel movement in 7 days in spite of good diet. Patient started on Lasix IV on 03/28/17 to help improve his edema. Patient has congestive heart failure but given his borderline hypotensive unable to tolerate beta-darrel/Nadir/Arb SE: hypotension. Patient restarted on DVT ppx heparin.
--- NOTE | 2017-03-31 14:48 | RAD ---
PROCEDURE: Radiographs of the chest and abdomen (obstructive series) HISTORY: abdominal distension COMPARISON: No prior. TECHNIQUE: AP radiograph of the chest, with upright and supine radiographs of the abdomen. FINDINGS: CHEST: Lungs: There is pulmonary venous congestion. Status post CABG. Cardiovascular: Cardiomegaly. Pleura: No pleural fluid. No pneumothorax. Other findings: None. ABDOMEN AND PELVIS: Bowel: There is gaseous distension of the stomach and small bowel loops. There is moderate amount of stool in the colon. Free air: None. Bones: Unremarkable. Other findings: None. IMPRESSION: 1. Gaseous distension of the stomach and small bowel loops which may represent ileus or obstruction. 2. Do pulmonary venous congestion and cardiomegaly.
[2017-04-01] MEDS: Acetylcysteine 20% Inhal Soln (4ml) INH SCH ×3 (02:15→19:51)
[2017-04-01] MEDS: Albuterol-Ipratrop 3 mg / 0.5 (3 ml) UD INH SCH ×4 (02:16→19:50)
--- NOTE | 2017-04-01 04:43 | CP.PCM.CON ---
History of Present Illness - History of Present Illness History of Present Illness: Consult note for Dr. Lara Consulted for: SBO vs ileus Patient is a 71M with PMH including CAD, CHF, afib, DM, HTN, and chronic anemia with PSH of CABG and right and left toe amputations who presented to the ER 2 weeks ago with SOB and cough and has been treated for a CHF exacerbation, ascites, UTI, LETICIA, and esophageal candidiasis, amongst other things, while hospitalized this visit. Surgery was consulted because today patient stated he had not had a bowel movement for several days. Patient denies any nausea, vomiting, fevers, chills, dysuria, hematuria, melena, hematochezia, or abdominal pain, but states that this hospitalization he has had diarrhea which had resolved. Patient has undergone a IR paracentisis for ascites on 03/21. Patient also tested positive for stool occult blood on 03/19. Denies abdominal surgeries. CT abdomen and pelvis 03/20: possible non-specific colitis of the descending colon and splenic flecture, ascites, anasarca Obstructive series 03/31: stomach and small bowel gas and distention, stool in colon, no free air PMH: CHF, CAD, afib, HTN, DM, PVD, chronic anemia PSH: CABG, BL Toe amputations All: NKDA Review of Systems - Review of Systems All systems: reviewed and no additional remarkable complaints except - Constitutional Constitutional: absent: Chills, Fever - Cardiovascular Cardiovascular: absent: Chest Pain, Chest Pain at Rest, Dyspnea - Respiratory Respiratory: absent: Cough, Dyspnea, Wheezing - Gastrointestinal Gastrointestinal: Constipation, Diarrhea. absent: Abdominal Pain, Hematochezia , Melena, Nausea, Vomiting - Genitourinary Genitourinary: absent: Difficulty Urinating, Dysuria, Hematuria - Musculoskeletal Musculoskeletal: Muscle Weakness. absent: Back Pain - Integumentary Integumentary: Non-Healing Lesions (FEET BL). absent: Rash Past Patient History - Infectious Disease Hx of Infectious Diseases: None - Past Medical History & Family History Past Medical History?: Yes - Past Social History Smoking Status: Former Smoker - CARDIAC Hx Cardiac Disorders: Yes (CAD, CABG, CHF (EF 30%)) Hx Atrial Fibrillation: Yes Hx Congestive Heart Failure: Yes Hx Hypercholesterolemia: Yes Hx Hypertension: Yes Hx Mitral Valve Prolapse: Yes Hx Peripheral Edema: Yes - PULMONARY Hx Respiratory Disorders: No - NEUROLOGICAL Hx Neurological Disorder: No - HEENT Hx HEENT Problems: No - RENAL Hx Chronic Kidney Disease: No - ENDOCRINE/METABOLIC Hx Diabetes Mellitus Type 2: Yes - HEMATOLOGICAL/ONCOLOGICAL Hx Blood Disorders: No Hx Anemia: Yes - INTEGUMENTARY Hx Dermatological Problems: Yes Hx Cellulitis: Yes Other/Comment: gangrene left foot - MUSCULOSKELETAL/RHEUMATOLOGICAL Hx Falls: No - GASTROINTESTINAL Hx Gall Bladder Disease: Yes - GENITOURINARY/GYNECOLOGICAL Hx Genitourinary Disorders: No Hx Urinary Tract Infection: Yes (Admitted earlier this year for UTI) - PSYCHIATRIC Hx Substance Use: No - SURGICAL HISTORY Hx Surgeries: Yes Hx Amputation: Yes (left foot toes 2017; right foot toes 2015) Hx Coronary Artery Bypass Graft: Yes (2009) - ANESTHESIA Hx Anesthesia: Yes Hx Anesthesia Reactions: No Hx Malignant Hyperthermia: No Meds Allergies/Adverse Reactions: Allergies Allergy/AdvReac Type Severity Reaction Status Date / Time No Known Allergies Allergy Verified 03/18/17 10:39 - Medications Medications: Current Medications Acetylcysteine (Acetylcysteine 20%) 4 ml INH RQ8 COUNTS [facility]CLUDE 234 BEDS AT [facility] Last Admin: 04/01/17 02:15 Dose: Not Given Albuterol/Ipratropium (Duoneb 3 Mg/0.5 Mg (3 Ml) Ud) 3 ml INH RQ8 COUNTS INCLUDE 234 BEDS AT THE [facility] Last Admin: 04/01/17 02:16 Dose: Not Given Amiodarone HCl (Cordarone) 200 mg PO DAILY COUNTS INCLUDE 234 BEDS AT THE [facility] Last Admin: 03/31/17 09:22 Dose: 200 mg Cilostazol (Pletal) 100 mg PO BID COUNTS INCLUDE 234 BEDS AT THE [facility] Last Admin: 03/31/17 17:06 Dose: 100 mg Collagenase (Santyl) 1 gm TOP DAILY COUNTS INCLUDE 234 BEDS AT [facility] Last Admin: 03/31/17 09:16 Dose: 1 applic Docusate Sodium (Colace) 100 mg PO DAILY COUNTS INCLUDE 234 BEDS AT [facility] Last Admin: 03/31/17 09:23 Dose: 100 mg Ferrous Sulfate (Feosol) 325 mg PO BID COUNTS INCLUDE 234 BEDS AT [facility] Last Admin: 03/31/17 17:06 Dose: 325 mg Furosemide (Lasix) 40 mg IVP DAILY COUNTS INCLUDE 234 BEDS AT [facility] Last Admin: 03/31/17 09:22 Dose: 40 mg Gabapentin (Neurontin) 100 mg PO BID COUNTS INCLUDE 234 BEDS AT [facility] Last Admin: 03/31/17 17:06 Dose: 100 mg Guaifenesin (Mucinex La) 600 mg PO BID COUNTS INCLUDE 234 BEDS AT [facility] Last Admin: 03/31/17 17:06 Dose: 600 mg Heparin Sodium (Porcine) (Heparin) 5,000 units SC Q8 COUNTS INCLUDE 234 BEDS AT THE [facility] Fluconazole (Diflucan Iv 200 Mg/100 Ml Ns) 100 mls @ 100 mls/hr IVPB DAILY COUNTS INCLUDE 234 BEDS AT THE [facility] Stop: 04/04/17 10:59 Last Admin: 03/31/17 09:24 Dose: 100 mls/hr Imipenem/Cilastatin Sodium 250 (mg/ Sodium Chloride) 100 mls @ 100 mls/hr IVPB Q8H COUNTS INCLUDE 234 BEDS AT THE [facility] Last Admin: 04/01/17 00:30 Dose: 100 mls/hr Insulin Aspart (Novolog) 0 unit SC ACHS COUNTS INCLUDE 234 BEDS AT THE [facility] PRN Reason: Protocol Last Admin: 03/31/17 22:12 Dose: Not Given Insulin Glargine (Lantus) 10 unit SC DAILY COUNTS INCLUDE 234 BEDS AT [facility] Last Admin: 03/31/17 09:22 Dose: 10 u Mupirocin (Bactroban Ointment) 0 gm TOP BID COUNTS INCLUDE 234 BEDS AT [facility] Last Admin: 03/31/17 17:13 Dose: 1 applic Pantoprazole Sodium (Protonix Ec Tab) 40 mg PO DAILY COUNTS INCLUDE 234 BEDS AT [facility] Last Admin: 03/31/17 11:00 Dose: 40 mg Promethazine HCl/Codeine (Phenergan/Codeine Oral Syrup) 5 ml PO Q4 PRN PRN Reason: Cough Last Admin: 03/30/17 17:12 Dose: 5 ml Fluticasone/Salmeterol (Advair Diskus 100/50) 1 puff IH RQD COUNTS INCLUDE 234 BEDS AT THE [facility] Last Admin: 03/31/17 08:05 Dose: 1 puff Physical Exam - Constitutional Appears: Well, Non-toxic, No Acute Distress - Head Exam Head Exam: ATRAUMATIC, NORMOCEPHALIC - Eye Exam Eye Exam: Normal appearance. absent: Conjunctival injection, Scleral icterus - ENT Exam ENT Exam: Mucous Membranes Moist, Normal Oropharynx - Respiratory Exam Respiratory Exam: NORMAL BREATHING PATTERN. absent: Accessory Muscle Use, Respiratory Distress - GI/Abdominal Exam GI & Abdominal Exam: Distended (mild distention), Soft. absent: Rebound, Rigid , Tenderness - Extremities Exam Extremities exam: Positive for: normal capillary refill. Negative for: calf tenderness, pedal edema Additional comments: BL feet in dressings C/D/I - Back Exam Back exam: absent: CVA tenderness (L), CVA tenderness (R) - Neurological Exam Neurological exam: Alert, Oriented x3 - Psychiatric Exam Psychiatric exam: Normal Affect, Normal Mood - Skin Skin Exam: Dry, Intact, Normal Color, Warm Results - Vital Signs Recent Vital Signs: Last Vital Signs Temp 97.8 F 03/31/17 23:35 Pulse 91 H 04/01/17 02:18 Resp 20 03/31/17 23:35 BP 95/63 L 03/31/17 23:35 Pulse Ox 99 03/31/17 23:35 - Labs Result Diagrams: 03/31/17 06:28 03/31/17 06:28 Labs: Laboratory Results - last 24 hr 03/27/17 03/27/17 03/27/17 13:51 13:51 13:51 WBC RBC Hgb Hct MCV MCH MCHC RDW Plt Count MPV Neut % (Auto) Lymph % (Auto) [place] % (Auto) Eos % (Auto) Baso % (Auto) Neut # Lymph # [place] # Eos # Baso # Sodium Potassium Chloride Carbon Dioxide Anion Gap BUN Creatinine Est GFR ( Amer) Est GFR (Non-Af Amer) POC Glucose (mg/dL) Random Glucose Calcium Phosphorus Magnesium Total Bilirubin AST ALT Alkaline Phosphatase Total Protein Albumin Globulin Albumin/Globulin Ratio Fluid Albumin 1.4 Peritoneal LDH 82 H Peritoneal Glucose 124 03/31/17 03/31/17 03/31/17 06:14 06:28 06:28 WBC 6.7 RBC 3.47 L Hgb 9.4 L Hct 29.8 L MCV 85.9 MCH 27.1 MCHC 31.5 L RDW 18.2 H Plt Count 225 MPV 8.8 Neut % (Auto) 76.6 H Lymph % (Auto) 11.4 L [place] % (Auto) 5.8 Eos % (Auto) 5.3 H Baso % (Auto) 0.9 Neut # 5.1 Lymph # 0.8 L [place] # 0.4 Eos # 0.4 Baso # 0.1 Sodium 133 Potassium 4.5 Chloride 99 Carbon Dioxide 24 Anion Gap 15 BUN 62 H Creatinine 1.7 H Est GFR ( Amer) 48 Est GFR (Non-Af Amer) 40 POC Glucose (mg/dL) 113 H Random Glucose 111 H Calcium 8.3 L Phosphorus 4.0 Magnesium 2.0 Total Bilirubin 1.4 H AST 17 ALT 13 L D Alkaline Phosphatase 84 Total Protein 6.4 Albumin 2.6 L Globulin 3.8 Albumin/Globulin Ratio 0.7 L Fluid Albumin Peritoneal LDH Peritoneal Glucose 03/31/17 03/31/17 03/31/17 11:39 16:30 21:29 WBC RBC Hgb Hct MCV MCH MCHC RDW Plt Count MPV Neut % (Auto) Lymph % (Auto) [place] % (Auto) Eos % (Auto) Baso % (Auto) Neut # Lymph # [place] # Eos # Baso # Sodium Potassium Chloride Carbon Dioxide Anion Gap BUN Creatinine Est GFR ( Amer) Est GFR (Non-Af Amer) POC Glucose (mg/dL) 174 H 189 H 135 H Random Glucose Calcium Phosphorus Magnesium Total Bilirubin AST ALT Alkaline Phosphatase Total Protein Albumin Globulin Albumin/Globulin Ratio Fluid Albumin Peritoneal LDH Peritoneal Glucose - Imaging and Cardiology CT scan - abdomen Status: Image reviewed by me, Report reviewed by me Abdominal x-ray Status: Image reviewed by me, Report reviewed by me Assessment & Plan - Assessment and Plan (Free Text) Assessment: 71M with extensive PMH being treated for ascites, CHF exacerbation among other things with constipation and SBO vs ileus Obstructive series: distended SB/stomach, stool in colon CT 03/20: possible colitis in the descending colon and splenic flexure stool occult blood positive on 03/19 Plan: - No surgical intervention planned at this time. Clinical picture more suggestive of ileus than SBO - CT with PO contrast - NPO - tap water enemas - anti-emetics, GI ppx - PT, encourage physical activity - IVF per primary to maintain hydration, taking extreme CHF into account Thank you for this consult Further recs per Dr. Marco Serrano, PGY2
--- NOTE | 2017-04-01 06:47 | CP.PCM.PN ---
<Nasrin Guzman - Last Filed: 04/01/17 17:48> Subjective - Date & Time of Evaluation Date of Evaluation: 04/01/17 Time of Evaluation: 06:47 - Subjective Subjective: Medicine Progress Note- Dr. Leonard Service Patient was seen and examined at bedside in no acute distress. Patient reports feeling better today. Patient had an enema today as he says he hasn't had a bowel movement for over a week. Patient denies having chest pain, abdominal pain , palpitations, nausea, and vomiting. Objective - Vital Signs/Intake and Output Vital Signs (last 24 hours): Temp Pulse Resp BP Pulse Ox 97.8 F 91 H 20 95/63 L 99 03/31/17 23:35 04/01/17 02:18 03/31/17 23:35 03/31/17 23:35 03/31/17 23:35 Intake and Output: 03/31/17 04/01/17 18:59 06:59 Intake Total 200 Output Total 1050 Balance -850 - Medications Medications: Current Medications Acetylcysteine (Acetylcysteine 20%) 4 ml INH RQ8 [facility] Last Admin: 04/01/17 02:15 Dose: Not Given Albuterol/Ipratropium (Duoneb 3 Mg/0.5 Mg (3 Ml) Ud) 3 ml INH RQ8 [facility] Last Admin: 04/01/17 02:16 Dose: Not Given Amiodarone HCl (Cordarone) 200 mg PO DAILY [facility] Last Admin: 03/31/17 09:22 Dose: 200 mg Cilostazol (Pletal) 100 mg PO BID [facility] Last Admin: 03/31/17 17:06 Dose: 100 mg Collagenase (Santyl) 1 gm TOP DAILY [facility] Last Admin: 03/31/17 09:16 Dose: 1 applic Docusate Sodium (Colace) 100 mg PO DAILY [facility] Last Admin: 03/31/17 09:23 Dose: 100 mg Ferrous Sulfate (Feosol) 325 mg PO BID [facility] Last Admin: 03/31/17 17:06 Dose: 325 mg Furosemide (Lasix) 40 mg IVP DAILY [facility] Last Admin: 03/31/17 09:22 Dose: 40 mg Gabapentin (Neurontin) 100 mg PO BID [facility] Last Admin: 03/31/17 17:06 Dose: 100 mg Guaifenesin (Mucinex La) 600 mg PO BID [facility] Last Admin: 03/31/17 17:06 Dose: 600 mg Heparin Sodium (Porcine) (Heparin) 5,000 units SC Q8 [facility] Fluconazole (Diflucan Iv 200 Mg/100 Ml Ns) 100 mls @ 100 mls/hr IVPB DAILY [facility] Stop: 04/04/17 10:59 Last Admin: 03/31/17 09:24 Dose: 100 mls/hr Imipenem/Cilastatin Sodium 250 (mg/ Sodium Chloride) 100 mls @ 100 mls/hr IVPB Q8H [facility] Last Admin: 04/01/17 00:30 Dose: 100 mls/hr Insulin Aspart (Novolog) 0 unit SC ACHS [facility] PRN Reason: Protocol Last Admin: 03/31/17 22:12 Dose: Not Given Insulin Glargine (Lantus) 10 unit SC DAILY [facility] Last Admin: 03/31/17 09:22 Dose: 10 u Mupirocin (Bactroban Ointment) 0 gm TOP BID [facility] Last Admin: 03/31/17 17:13 Dose: 1 applic Pantoprazole Sodium (Protonix Ec Tab) 40 mg PO DAILY [facility] Last Admin: 03/31/17 11:00 Dose: 40 mg Promethazine HCl/Codeine (Phenergan/Codeine Oral Syrup) 5 ml PO Q4 PRN PRN Reason: Cough Last Admin: 03/30/17 17:12 Dose: 5 ml Fluticasone/Salmeterol (Advair Diskus 100/50) 1 puff IH RQD [facility] Last Admin: 03/31/17 08:05 Dose: 1 puff - Labs Labs: 03/31/17 06:28 03/31/17 06:28 PT 15.4 SECONDS (9.7-12.2) H 03/27/17 06:31 INR 1.4 03/27/17 06:31 APTT 32 SECONDS (21-34) 03/26/17 06:03 - Constitutional Appears: No Acute Distress - Head Exam Head Exam: NORMAL INSPECTION, NORMOCEPHALIC - Eye Exam Eye Exam: EOMI, Normal appearance - ENT Exam ENT Exam: Mucous Membranes Moist - Neck Exam Neck Exam: Normal Inspection - Respiratory Exam Respiratory Exam: Rhonchi, Wheezes, NORMAL BREATHING PATTERN. absent: Clear to Ausculation Bilateral - Cardiovascular Exam Cardiovascular Exam: Irregular Rhythm, +S1, +S2 - GI/Abdominal Exam GI & Abdominal Exam: Soft, Normal Bowel Sounds - Exam Exam: Scrotal Swelling - Extremities Exam Extremities Exam: Pedal Edema. absent: Calf Tenderness - Neurological Exam Neurological Exam: Alert, Awake - Psychiatric Exam Psychiatric exam: Normal Affect, Normal Mood - Skin Skin Exam: Dry, Intact, Normal Color, Warm Assessment and Plan (1) Acute exacerbation of CHF (congestive heart failure) Assessment & Plan: Consult: Dr. Canales (Cardiology) on board-->help appreciated * Patient is not a candidate for valve replacement Echocardiogram (03/21/17): left ventricle systolic function is severely impaired , EF: 25%, spetal motion consistent with post operative state. Global hypokinesis of the left ventricle. Grade II-pseudonormal filling. Severe valvular aortic stenosis. Mitral regurgitation is moderate. Severe pulmonary hypertension Per cardiology, patient is not a surgical candidate for aortic stenosis Amiodarone 200mg PO daily Lasix 40mg IVP Daily Chest X-ray (03/27/17): Bilateral perihilar opacity, left greater than right. Congestive change. No pleural effusion. Nonspecific finding. Possible congestive heart failure/pulmonary edema. Rule out pneumonia. Pillow to elevate scrotum ordered 03/31/17 Status: Acute (2) Anemia Assessment & Plan: Acute anemia, likely due to acute blood loss Stable H/H (04/01) 8.8/27.2; (03/31) 9.4/29.8; (03/28): 9.6/29.3; H/H (03/27): 9.6/30.2; H/H (03/26): 8.2/25.9 Iron: 36, TIBC: 285, %14, Ferritin: 48.5 Endoscopy (03/21): monillial esophagitis. Cells for cytology obtained. Erosive gastropahty. Normal examined duodenum-->negative cytology cells Patient has had 3 units of PRBC transfused during hospitalization Consult: Dr. Ag (GI) on board-->help appreciated CT Abd/pelvis: no evidence of intraperitoneal hemorrhage or retroperitoneal hemorrhage Ferrous sulfate 325mg PO BID Status: Chronic (3) Ascites Assessment & Plan: Possibly secondary to CHF and Acute Kidney Injury Intervential Radiology Consult, Dr. Franco Skaggs --> Help Appreciated Paracentesis performed 03/27/17: removed 2L of dark yellow fluid; Per Dr. Ag's note the total PMN count on the fluid was 216, which is below the threshold for SBP (Must be below 250). - LDH of peritoneal fluid 82 - Glucose of peritoneal fluid 124 - Albumin of peritoneal fluid 1.4 - Peritoneal Fluid: Clear; WBC- 309, RBS 1225, Total Cell Count-100, Neutrophil-70, Lymphocyte-25, Monocyte/Macrophage-5 - Fluid culture/smear of peritoneal fluid- no growth detected Status: Acute (4) UTI (urinary tract infection) Assessment & Plan: Discontinued 03/31/17- Primaxin 250mg IV 6 hours (active since 03/22/17) Urine culture (03/20/17): +ESBL Repeat Urine Culture (03/27/17)- No growth Status: Acute (5) A-fib Assessment & Plan: Amiodarone 200mg PO daily Patient is off Xarelto secondary to GI workup r/o bleed Status: Acute (6) Cough Assessment & Plan: Acute on chronic cough, acute bronchitis, suspected pneumonia Started Phenergan/Codeine oral syrup 5ml PO Q4 PRN Sputum Culture: Few polymorphonuclear WBS, few epithelial cells, no organisms seen. Status: Acute (7) LETICIA (acute kidney injury) Assessment & Plan: Consult: Dr. Reynolds (nephrology) on board-->help appreciated BUN 62, Cr 1.7 on 03/31/17 BUN 65, Cr 2 on 04/01/17 Off Nadir/arb/statin Status: Acute (8) HTN (hypertension) Assessment & Plan: Patient is borderline hypotensive. 94/60 on 04/01/17 Status: Acute (9) Hx of CABG Assessment & Plan: Continue medical management as per cardiology. Status: Acute (10) Diabetes Assessment & Plan: Hgba1c: 7.2 Lantus 10 units subq daily Status: Chronic (11) Hyperlipidemia Assessment & Plan: Discontinued statin Status: Chronic (12) Peripheral vascular disease Assessment & Plan: Patient is on Pletal 100mg PO BID Status: Chronic (13) Esophageal candidiasis Assessment & Plan: On Diflucan 200mg IV q daily (active since 03/22/17); 4 more doses (04/01/17) Status: Acute (14) Constipation Assessment & Plan: Constipated for 7 days Dulcolax 5mg PO once on 03/31/17 Abdominal xray: gas distension of stomach and small bowel loops, may be ileus or obstruction Surgery consulted, Dr. Lara, help appreciated As per surgery, no surgery at this time; recommend CT w/PO contrast, tap water enema, PT, and activity. Tap water enema on 04/01/17- as per the nurse, only liquids and sediment was observed. Status: Acute (15) Prophylactic measure Assessment & Plan: Protonix 40mg PO daily Discontinued heparin 5000 units subq 12 hours PT/OT evaluation 03/27/17: RN deferred because patient was going to have tapping of the belly. Palliative Care Consult placed on 03/27/17 Status: Acute <Noemí Leonard V - Last Filed: 04/02/17 09:28> Objective - Vital Signs/Intake and Output Vital Signs (last 24 hours): Temp Pulse Resp BP Pulse Ox 97.2 F L 92 H 20 94/62 L 97 04/02/17 08:25 04/02/17 08:25 04/02/17 08:25 04/02/17 08:25 04/02/17 08:25 - Medications Medications: Current Medications Acetylcysteine (Acetylcysteine 20%) 4 ml INH RQ8 [facility] Last Admin: 04/02/17 09:22 Dose: Not Given Albuterol/Ipratropium (Duoneb 3 Mg/0.5 Mg (3 Ml) Ud) 3 ml INH RQ6 [facility] Last Admin: 04/02/17 09:22 Dose: Not Given Amiodarone HCl (Cordarone) 200 mg PO DAILY [facility] Last Admin: 04/01/17 11:05 Dose: 200 mg Cilostazol (Pletal) 100 mg PO BID [facility] Last Admin: 04/01/17 18:07 Dose: 100 mg Collagenase (Santyl) 1 gm TOP DAILY [facility] Last Admin: 04/01/17 11:07 Dose: 1 applic Docusate Sodium (Colace) 100 mg PO DAILY [facility] Last Admin: 04/01/17 11:05 Dose: 100 mg Ferrous Sulfate (Feosol) 325 mg PO BID [facility] Last Admin: 04/01/17 18:05 Dose: 325 mg Furosemide (Lasix) 40 mg IVP DAILY [facility] Last Admin: 04/01/17 11:05 Dose: 40 mg Gabapentin (Neurontin) 100 mg PO BID [facility] Last Admin: 04/01/17 18:05 Dose: 100 mg Guaifenesin (Mucinex La) 600 mg PO BID [facility] Last Admin: 04/01/17 18:04 Dose: 600 mg Heparin Sodium (Porcine) (Heparin) 5,000 units SC Q8 [facility] Last Admin: 04/02/17 06:35 Dose: 5,000 units Fluconazole (Diflucan Iv 200 Mg/100 Ml Ns) 100 mls @ 100 mls/hr IVPB DAILY [facility] Stop: 04/04/17 10:59 Last Admin: 04/01/17 10:30 Dose: 100 mls/hr Imipenem/Cilastatin Sodium 250 (mg/ Sodium Chloride) 100 mls @ 100 mls/hr IVPB Q8H [facility] Last Admin: 04/02/17 06:35 Dose: 100 mls/hr Insulin Aspart (Novolog) 0 unit SC ACHS [facility] PRN Reason: Protocol Last Admin: 04/01/17 22:14 Dose: Not Given Insulin Glargine (Lantus) 10 unit SC DAILY [facility] Last Admin: 04/01/17 11:08 Dose: 10 u Mupirocin (Bactroban Ointment) 0 gm TOP BID [facility] Last Admin: 04/01/17 18:08 Dose: 1 applic Pantoprazole Sodium (Protonix Ec Tab) 40 mg PO DAILY [facility] Last Admin: 04/01/17 11:05 Dose: 40 mg Polyethylene Glycol (Miralax) 17 gm PO BID [facility] Last Admin: 04/01/17 18:08 Dose: 17 gm Promethazine HCl/Codeine (Phenergan/Codeine Oral Syrup) 5 ml PO Q4 PRN PRN Reason: Cough Last Admin: 03/30/17 17:12 Dose: 5 ml Fluticasone/Salmeterol (Advair Diskus 100/50) 1 puff IH RQD [facility] Last Admin: 04/02/17 09:22 Dose: Not Given - Labs Labs: 04/02/17 08:00 04/02/17 08:00 PT 15.4 SECONDS (9.7-12.2) H 03/27/17 06:31 INR 1.4 03/27/17 06:31 APTT 32 SECONDS (21-34) 03/26/17 06:03 Attending/Attestation - Attestation I have personally seen and examined this patient.: Yes I have fully participated in the care of the patient.: Yes I have reviewed all pertinent clinical information, including history, physical exam and plan: Yes Notes (Text): This is late computer entry for 04/01/17. Patient seen, examined, and case discussed with day-time international project engineer. Spoke with patient and patient's at bedside. Patient has not had a bowel movement in quite some time. Abdominal xray had revealed ileus vs obstruction. Patient is currently NPO except for medications. Patient had a enema earlier prior to my arrival but did not have a bowel movement. Patient continues to cough and audible congestion. Discussed with respiratory therapist to coordinate duoneb with PRN Bipap to help relieve congestion. Will f/u with pulmonary and general surgery Patient is not a surgical candidate for aortic stenosis and pending cardiac clearance to continue GI workup in regards to anemia. Will continue to monitor H /H.
[2017-04-01 08:07] LABS: BASO % 0.7 % (0.0-2.0); EOS # 0.4 K/uL (0.0-0.7); EOS % 5.4 % (0.0-4.0); HEMOGLOBIN 8.8 g/dL (12.0-18.0); LYMPH # 0.7 K/uL (1.0-4.3); LYMPH % 10.6 % (20.0-40.0); MEAN CELL VOLUME 84.6 fL (80.0-94.0); MEAN CORPUSCULAR HEMOGLOBIN 27.4 pg (27.0-31.0); MEAN CORPUSCULAR HGB CONC 32.4 g/dL (33.0-37.0); MEAN PLATELET VOLUME 8.7 fL (7.2-11.7); MONO # 0.4 K/uL (0.0-0.8); MONO % 5.7 % (0.0-10.0); NEUT # 5.2 K/uL (1.8-7.0); NEUT % 77.6 % (50.0-75.0); RBC 3.22 Mil/uL (4.40-5.90); WHITE BLOOD COUNT 6.7 K/uL (4.8-10.8)
[2017-04-01 08:21] LABS: ALBUMIN 2.5 g/dL (3.5-5.0)
--- NOTE | 2017-04-01 08:22 | CP.PCM.PN ---
Subjective - Date & Time of Evaluation Date of Evaluation: 04/01/17 Time of Evaluation: 08:20 - Subjective Subjective: surgical eval noted pt npo for ileus, passed gas. diet to be advanced labs drawn pending upset about not getting breakfast uop 400 cc overnight, allen Objective - Vital Signs/Intake and Output Vital Signs (last 24 hours): Temp Pulse Resp BP Pulse Ox 97.8 F 91 H 20 95/63 L 99 03/31/17 23:35 04/01/17 02:18 03/31/17 23:35 03/31/17 23:35 03/31/17 23:35 Intake and Output: 04/01/17 04/01/17 06:59 18:59 Intake Total 200 Output Total 1050 Balance -850 - Medications Medications: Current Medications Acetylcysteine (Acetylcysteine 20%) 4 ml INH RQ8 [facility] Last Admin: 04/01/17 07:41 Dose: 4 ml Albuterol/Ipratropium (Duoneb 3 Mg/0.5 Mg (3 Ml) Ud) 3 ml INH RQ8 [facility] Last Admin: 04/01/17 07:41 Dose: 3 ml Amiodarone HCl (Cordarone) 200 mg PO DAILY [facility] Last Admin: 03/31/17 09:22 Dose: 200 mg Cilostazol (Pletal) 100 mg PO BID [facility] Last Admin: 03/31/17 17:06 Dose: 100 mg Collagenase (Santyl) 1 gm TOP DAILY [facility] Last Admin: 03/31/17 09:16 Dose: 1 applic Docusate Sodium (Colace) 100 mg PO DAILY [facility] Last Admin: 03/31/17 09:23 Dose: 100 mg Ferrous Sulfate (Feosol) 325 mg PO BID [facility] Last Admin: 03/31/17 17:06 Dose: 325 mg Furosemide (Lasix) 40 mg IVP DAILY [facility] Last Admin: 03/31/17 09:22 Dose: 40 mg Gabapentin (Neurontin) 100 mg PO BID [facility] Last Admin: 03/31/17 17:06 Dose: 100 mg Guaifenesin (Mucinex La) 600 mg PO BID [facility] Last Admin: 03/31/17 17:06 Dose: 600 mg Heparin Sodium (Porcine) (Heparin) 5,000 units SC Q8 [facility] Last Admin: 04/01/17 07:15 Dose: 5,000 units Fluconazole (Diflucan Iv 200 Mg/100 Ml Ns) 100 mls @ 100 mls/hr IVPB DAILY [facility] Stop: 04/04/17 10:59 Last Admin: 03/31/17 09:24 Dose: 100 mls/hr Imipenem/Cilastatin Sodium 250 (mg/ Sodium Chloride) 100 mls @ 100 mls/hr IVPB Q8H [facility] Last Admin: 04/01/17 07:16 Dose: 100 mls/hr Insulin Aspart (Novolog) 0 unit SC ACHS [facility] PRN Reason: Protocol Last Admin: 03/31/17 22:12 Dose: Not Given Insulin Glargine (Lantus) 10 unit SC DAILY [facility] Last Admin: 03/31/17 09:22 Dose: 10 u Mupirocin (Bactroban Ointment) 0 gm TOP BID [facility] Last Admin: 03/31/17 17:13 Dose: 1 applic Pantoprazole Sodium (Protonix Ec Tab) 40 mg PO DAILY [facility] Last Admin: 03/31/17 11:00 Dose: 40 mg Promethazine HCl/Codeine (Phenergan/Codeine Oral Syrup) 5 ml PO Q4 PRN PRN Reason: Cough Last Admin: 03/30/17 17:12 Dose: 5 ml Fluticasone/Salmeterol (Advair Diskus 100/50) 1 puff IH RQD [facility] Last Admin: 03/31/17 08:05 Dose: 1 puff - Labs Labs: 04/01/17 07:55 03/31/17 06:28 PT 15.4 SECONDS (9.7-12.2) H 03/27/17 06:31 INR 1.4 03/27/17 06:31 APTT 32 SECONDS (21-34) 03/26/17 06:03 - Constitutional Appears: No Acute Distress, Chronically Ill - Head Exam Head Exam: NORMAL INSPECTION - Eye Exam Eye Exam: Normal appearance - ENT Exam ENT Exam: Mucous Membranes Moist, Normal Exam - Neck Exam Neck Exam: Normal Inspection - Respiratory Exam Respiratory Exam: Decreased Breath Sounds, NORMAL BREATHING PATTERN - Cardiovascular Exam Cardiovascular Exam: REGULAR RHYTHM, RRR - GI/Abdominal Exam GI & Abdominal Exam: Distended, Soft, Hypoactive Bowel Sounds - Extremities Exam Extremities Exam: Pedal Edema Assessment and Plan (1) LETICIA (acute kidney injury) Status: Acute (2) Acute exacerbation of CHF (congestive heart failure) Status: Acute (3) Shortness of breath Status: Acute (4) CHF (congestive heart failure) Status: Chronic (5) A-fib Status: Acute (6) GI bleed Status: Acute (7) HTN (hypertension) Status: Acute - Assessment and Plan (Free Text) Assessment: maintain lasix, follow daily chems.
[2017-04-01 08:24] LABS: ALB/GLOB RATIO 0.7 (1.0-2.1)
[2017-04-01 08:25] LABS: CALCIUM 8.3 mg/dl (8.6-10.4); MAGNESIUM 1.9 mg/dL (1.6-2.3)
[2017-04-01] MEDS: Fluticasone-Salmeterol 100-50mcg Diskus IH SCH (08:40)
[2017-04-01] MEDS: (Novolog) Insulin Aspart, Recombinant 100 u/ml 10 ml vial SC SCH ×4 (09:01→22:14)
--- NOTE | 2017-04-01 10:17 | CP.PCM.PN ---
Subjective - Date & Time of Evaluation Date of Evaluation: 04/01/17 Time of Evaluation: 10:15 - Subjective Subjective: COVERING DR MONROY No pain or bleeding Objective - Vital Signs/Intake and Output Vital Signs (last 24 hours): Temp Pulse Resp BP Pulse Ox 97.5 F L 95 H 20 94/60 L 96 04/01/17 07:04 04/01/17 07:04 04/01/17 07:04 04/01/17 07:04 04/01/17 07:04 Intake and Output: 04/01/17 04/01/17 06:59 18:59 Intake Total 200 Output Total 1050 Balance -850 - Medications Medications: Current Medications Acetylcysteine (Acetylcysteine 20%) 4 ml INH RQ8 [facility] Last Admin: 04/01/17 07:41 Dose: 4 ml Albuterol/Ipratropium (Duoneb 3 Mg/0.5 Mg (3 Ml) Ud) 3 ml INH RQ8 [facility] Last Admin: 04/01/17 07:41 Dose: 3 ml Amiodarone HCl (Cordarone) 200 mg PO DAILY [facility] Last Admin: 03/31/17 09:22 Dose: 200 mg Cilostazol (Pletal) 100 mg PO BID [facility] Last Admin: 03/31/17 17:06 Dose: 100 mg Collagenase (Santyl) 1 gm TOP DAILY [facility] Last Admin: 03/31/17 09:16 Dose: 1 applic Docusate Sodium (Colace) 100 mg PO DAILY [facility] Last Admin: 03/31/17 09:23 Dose: 100 mg Ferrous Sulfate (Feosol) 325 mg PO BID [facility] Last Admin: 03/31/17 17:06 Dose: 325 mg Furosemide (Lasix) 40 mg IVP DAILY [facility] Last Admin: 03/31/17 09:22 Dose: 40 mg Gabapentin (Neurontin) 100 mg PO BID [facility] Last Admin: 03/31/17 17:06 Dose: 100 mg Guaifenesin (Mucinex La) 600 mg PO BID [facility] Last Admin: 03/31/17 17:06 Dose: 600 mg Heparin Sodium (Porcine) (Heparin) 5,000 units SC Q8 [facility] Last Admin: 04/01/17 07:15 Dose: 5,000 units Fluconazole (Diflucan Iv 200 Mg/100 Ml Ns) 100 mls @ 100 mls/hr IVPB DAILY [facility] Stop: 04/04/17 10:59 Last Admin: 03/31/17 09:24 Dose: 100 mls/hr Imipenem/Cilastatin Sodium 250 (mg/ Sodium Chloride) 100 mls @ 100 mls/hr IVPB Q8H [facility] Last Admin: 04/01/17 07:16 Dose: 100 mls/hr Insulin Aspart (Novolog) 0 unit SC ACHS [facility] PRN Reason: Protocol Last Admin: 04/01/17 09:01 Dose: Not Given Insulin Glargine (Lantus) 10 unit SC DAILY [facility] Last Admin: 03/31/17 09:22 Dose: 10 u Mupirocin (Bactroban Ointment) 0 gm TOP BID [facility] Last Admin: 03/31/17 17:13 Dose: 1 applic Pantoprazole Sodium (Protonix Ec Tab) 40 mg PO DAILY [facility] Last Admin: 03/31/17 11:00 Dose: 40 mg Promethazine HCl/Codeine (Phenergan/Codeine Oral Syrup) 5 ml PO Q4 PRN PRN Reason: Cough Last Admin: 03/30/17 17:12 Dose: 5 ml Fluticasone/Salmeterol (Advair Diskus 100/50) 1 puff IH RQD [facility] Last Admin: 03/31/17 08:05 Dose: 1 puff - Labs Labs: 04/01/17 07:55 04/01/17 07:55 PT 15.4 SECONDS (9.7-12.2) H 03/27/17 06:31 INR 1.4 03/27/17 06:31 APTT 32 SECONDS (21-34) 03/26/17 06:03 - Constitutional Appears: No Acute Distress - Head Exam Head Exam: ATRAUMATIC, NORMOCEPHALIC - Respiratory Exam Respiratory Exam: NORMAL BREATHING PATTERN - Cardiovascular Exam Cardiovascular Exam: REGULAR RHYTHM, +S1 - GI/Abdominal Exam GI & Abdominal Exam: Soft, Normal Bowel Sounds. absent: Guarding, Tenderness, Mass, Rebound - Back Exam Back Exam: NORMAL INSPECTION Assessment and Plan (1) Iron deficiency anemia Status: Acute (2) Fecal occult blood test positive Assessment & Plan: No change in H/H since weekend GI workup when cleared by Cardiology. Continue supportive care. Status: Acute (3) CHF (congestive heart failure) Status: Acute
[2017-04-01] MEDS: Fluconazole IV 200mg/100 ml NS 100 ML IVPB SCH (10:30)
[2017-04-01] MEDS: Cilostazol 100 mg Tab UD PO SCH ×2 (11:05→18:07)
[2017-04-01] MEDS: Pantoprazole 40 mg EC Tab PO SCH (11:05)
[2017-04-01] MEDS: guaiFENesin 600 mg ER Tab PO SCH ×2 (11:05→18:04)
[2017-04-01] MEDS: Collagenase 250 Units/gm Ointment(30 gm) TOP SCH (11:07)
[2017-04-01] MEDS: (Lantus) Insulin Glargine, Recombinant SC SCH (11:08)
--- NOTE | 2017-04-01 15:35 | CP.PCM.PN ---
Subjective - Date & Time of Evaluation Date of Evaluation: 04/01/17 Time of Evaluation: 15:00 - Subjective Subjective: patient seen and examined 71M with PMH of CAD, CHF, afib, DM, HTN, and chronic anemia with PSH of CABG and right and left toe amputations who presented to the ER 2 weeks ago with SOB and cough and has been treated for a CHF exacerbation, ascites, UTI, LETICIA, and esophageal candidiasis. patient has been complaining of cough which is mostly dry but sometimes productive of purulent phlegm. Complaining of constipation and no bowel movement for one week. CT of abdomen consistent with ileus versus small bowel obstruction. Seen by surgery with no surgical intervention. Complaining off also dyspnea on minimal exertion Objective - Vital Signs/Intake and Output Vital Signs (last 24 hours): Temp Pulse Resp BP Pulse Ox 97.5 F L 95 H 20 110/74 96 04/01/17 07:04 04/01/17 07:04 04/01/17 07:04 04/01/17 11:05 04/01/17 07:04 Intake and Output: 04/01/17 04/01/17 06:59 18:59 Intake Total 200 Output Total 1050 Balance -850 - Medications Medications: Current Medications Acetylcysteine (Acetylcysteine 20%) 4 ml INH RQ8 [facility] Last Admin: 04/01/17 07:41 Dose: 4 ml Albuterol/Ipratropium (Duoneb 3 Mg/0.5 Mg (3 Ml) Ud) 3 ml INH RQ6 [facility] Last Admin: 04/01/17 14:01 Dose: 3 ml Amiodarone HCl (Cordarone) 200 mg PO DAILY [facility] Last Admin: 04/01/17 11:05 Dose: 200 mg Cilostazol (Pletal) 100 mg PO BID [facility] Last Admin: 04/01/17 11:05 Dose: 100 mg Collagenase (Santyl) 1 gm TOP DAILY [facility] Last Admin: 04/01/17 11:07 Dose: 1 applic Docusate Sodium (Colace) 100 mg PO DAILY [facility] Last Admin: 04/01/17 11:05 Dose: 100 mg Ferrous Sulfate (Feosol) 325 mg PO BID [facility] Last Admin: 04/01/17 11:07 Dose: 325 mg Furosemide (Lasix) 40 mg IVP DAILY [facility] Last Admin: 04/01/17 11:05 Dose: 40 mg Gabapentin (Neurontin) 100 mg PO BID [facility] Last Admin: 04/01/17 11:07 Dose: 100 mg Guaifenesin (Mucinex La) 600 mg PO BID [facility] Last Admin: 04/01/17 11:05 Dose: 600 mg Heparin Sodium (Porcine) (Heparin) 5,000 units SC Q8 [facility] Last Admin: 04/01/17 14:41 Dose: 5,000 units Fluconazole (Diflucan Iv 200 Mg/100 Ml Ns) 100 mls @ 100 mls/hr IVPB DAILY [facility] Stop: 04/04/17 10:59 Last Admin: 04/01/17 10:30 Dose: 100 mls/hr Imipenem/Cilastatin Sodium 250 (mg/ Sodium Chloride) 100 mls @ 100 mls/hr IVPB Q8H [facility] Last Admin: 04/01/17 07:16 Dose: 100 mls/hr Insulin Aspart (Novolog) 0 unit SC ACHS [facility] PRN Reason: Protocol Last Admin: 04/01/17 14:12 Dose: Not Given Insulin Glargine (Lantus) 10 unit SC DAILY [facility] Last Admin: 04/01/17 11:08 Dose: 10 u Mupirocin (Bactroban Ointment) 0 gm TOP BID [facility] Last Admin: 04/01/17 11:06 Dose: 1 applic Pantoprazole Sodium (Protonix Ec Tab) 40 mg PO DAILY [facility] Last Admin: 04/01/17 11:05 Dose: 40 mg Polyethylene Glycol (Miralax) 17 gm PO BID [facility] Promethazine HCl/Codeine (Phenergan/Codeine Oral Syrup) 5 ml PO Q4 PRN PRN Reason: Cough Last Admin: 03/30/17 17:12 Dose: 5 ml Fluticasone/Salmeterol (Advair Diskus 100/50) 1 puff IH RQD [facility] Last Admin: 04/01/17 08:40 Dose: 1 puff - Labs Labs: 04/01/17 07:55 04/01/17 07:55 PT 15.4 SECONDS (9.7-12.2) H 03/27/17 06:31 INR 1.4 03/27/17 06:31 APTT 32 SECONDS (21-34) 03/26/17 06:03 - Head Exam Head Exam: ATRAUMATIC, NORMOCEPHALIC - Eye Exam Eye Exam: Normal appearance - ENT Exam ENT Exam: Mucous Membranes Moist - Neck Exam Neck Exam: Normal Inspection - Respiratory Exam Respiratory Exam: Decreased Breath Sounds - Cardiovascular Exam Cardiovascular Exam: REGULAR RHYTHM Assessment and Plan (1) Cough Assessment & Plan: secondary to CHF and possible pneumonia CAT scan of th without contrast Continue antitussive and consider to discontinue advair Status: Acute (2) Acute exacerbation of CHF (congestive heart failure) Status: Acute (3) A-fib Status: Acute (4) GI bleed Status: Acute
[2017-04-01] MEDS: POLYETHYLENE GLYCOL 3350 17 GM/Dose PACKET PO SCH (18:08)
[2017-04-02] MEDS: Albuterol-Ipratrop 3 mg / 0.5 (3 ml) UD INH SCH ×5 (01:27→19:53)
[2017-04-02] MEDS: Acetylcysteine 20% Inhal Soln (4ml) INH SCH ×3 (01:27→16:33)
--- NOTE | 2017-04-02 08:09 | CP.PCM.PN ---
Subjective - Date & Time of Evaluation Date of Evaluation: 04/02/17 Time of Evaluation: 08:05 - Subjective Subjective: no new complaints. no current chest pain Objective - Vital Signs/Intake and Output Vital Signs (last 24 hours): Temp Pulse Resp BP Pulse Ox 97.4 F L 90 20 103/65 98 04/01/17 23:30 04/01/17 23:30 04/01/17 23:30 04/01/17 23:30 04/01/17 23:30 - Medications Medications: Current Medications Acetylcysteine (Acetylcysteine 20%) 4 ml INH RQ8 [facility] Last Admin: 04/02/17 01:27 Dose: 4 ml Albuterol/Ipratropium (Duoneb 3 Mg/0.5 Mg (3 Ml) Ud) 3 ml INH RQ6 [facility] Last Admin: 04/02/17 01:27 Dose: 3 ml Amiodarone HCl (Cordarone) 200 mg PO DAILY [facility] Last Admin: 04/01/17 11:05 Dose: 200 mg Cilostazol (Pletal) 100 mg PO BID [facility] Last Admin: 04/01/17 18:07 Dose: 100 mg Collagenase (Santyl) 1 gm TOP DAILY [facility] Last Admin: 04/01/17 11:07 Dose: 1 applic Docusate Sodium (Colace) 100 mg PO DAILY [facility] Last Admin: 04/01/17 11:05 Dose: 100 mg Ferrous Sulfate (Feosol) 325 mg PO BID [facility] Last Admin: 04/01/17 18:05 Dose: 325 mg Furosemide (Lasix) 40 mg IVP DAILY [facility] Last Admin: 04/01/17 11:05 Dose: 40 mg Gabapentin (Neurontin) 100 mg PO BID [facility] Last Admin: 04/01/17 18:05 Dose: 100 mg Guaifenesin (Mucinex La) 600 mg PO BID [facility] Last Admin: 04/01/17 18:04 Dose: 600 mg Heparin Sodium (Porcine) (Heparin) 5,000 units SC Q8 [facility] Last Admin: 04/02/17 06:35 Dose: 5,000 units Fluconazole (Diflucan Iv 200 Mg/100 Ml Ns) 100 mls @ 100 mls/hr IVPB DAILY [facility] Stop: 04/04/17 10:59 Last Admin: 04/01/17 10:30 Dose: 100 mls/hr Imipenem/Cilastatin Sodium 250 (mg/ Sodium Chloride) 100 mls @ 100 mls/hr IVPB Q8H [facility] Last Admin: 04/02/17 06:35 Dose: 100 mls/hr Insulin Aspart (Novolog) 0 unit SC ACHS [facility] PRN Reason: Protocol Last Admin: 04/01/17 22:14 Dose: Not Given Insulin Glargine (Lantus) 10 unit SC DAILY [facility] Last Admin: 04/01/17 11:08 Dose: 10 u Mupirocin (Bactroban Ointment) 0 gm TOP BID [facility] Last Admin: 04/01/17 18:08 Dose: 1 applic Pantoprazole Sodium (Protonix Ec Tab) 40 mg PO DAILY [facility] Last Admin: 04/01/17 11:05 Dose: 40 mg Polyethylene Glycol (Miralax) 17 gm PO BID [facility] Last Admin: 04/01/17 18:08 Dose: 17 gm Promethazine HCl/Codeine (Phenergan/Codeine Oral Syrup) 5 ml PO Q4 PRN PRN Reason: Cough Last Admin: 03/30/17 17:12 Dose: 5 ml Fluticasone/Salmeterol (Advair Diskus 100/50) 1 puff IH RQD [facility] Last Admin: 04/01/17 08:40 Dose: 1 puff - Labs Labs: 04/01/17 07:55 04/01/17 07:55 PT 15.4 SECONDS (9.7-12.2) H 03/27/17 06:31 INR 1.4 03/27/17 06:31 APTT 32 SECONDS (21-34) 03/26/17 06:03 - Constitutional Appears: Non-toxic - Head Exam Head Exam: NORMAL INSPECTION - Eye Exam Eye Exam: Normal appearance - ENT Exam ENT Exam: Mucous Membranes Moist - Respiratory Exam Respiratory Exam: NORMAL BREATHING PATTERN - Cardiovascular Exam Cardiovascular Exam: Irregular Rhythm - GI/Abdominal Exam GI & Abdominal Exam: Normal Bowel Sounds - Rectal Exam Rectal Exam: Deferred - Extremities Exam Extremities Exam: absent: Pedal Edema - Back Exam Back Exam: NORMAL INSPECTION - Neurological Exam Neurological Exam: Alert - Psychiatric Exam Psychiatric exam: Normal Affect - Skin Skin Exam: Normal Color Assessment and Plan (1) Acute exacerbation of CHF (congestive heart failure) Assessment & Plan: slow improvement Status: Acute (2) Anemia Assessment & Plan: follow hgb Status: Acute (3) A-fib Assessment & Plan: rate controlled Status: Acute (4) Aortic stenosis Assessment & Plan: not operative candidate Status: Acute
[2017-04-02 08:19] LABS: BASO # 0.1 K/uL (0.0-0.2); BASO % 1.1 % (0.0-2.0); EOS # 0.3 K/uL (0.0-0.7); EOS % 4.4 % (0.0-4.0); HEMOGLOBIN 8.7 g/dL (12.0-18.0); LYMPH # 0.7 K/uL (1.0-4.3); LYMPH % 11.6 % (20.0-40.0); MEAN CORPUSCULAR HEMOGLOBIN 26.9 pg (27.0-31.0); MEAN CORPUSCULAR HGB CONC 31.6 g/dL (33.0-37.0); MEAN PLATELET VOLUME 8.8 fL (7.2-11.7); MONO # 0.3 K/uL (0.0-0.8); MONO % 5.7 % (0.0-10.0); NEUT # 4.5 K/uL (1.8-7.0); NEUT % 77.2 % (50.0-75.0); NRBC % 0.1 % (0.0-2.0); RBC 3.23 Mil/uL (4.40-5.90); RED CELL DISTRIBUTION WIDTH 18.1 % (11.5-14.5); WHITE BLOOD COUNT 5.8 K/uL (4.8-10.8)
[2017-04-02 08:49] LABS: ALBUMIN 2.6 g/dL (3.5-5.0)
[2017-04-02 08:52] LABS: ALB/GLOB RATIO 0.7 (1.0-2.1)
[2017-04-02 08:53] LABS: CALCIUM 8.6 mg/dl (8.6-10.4); MAGNESIUM 2.2 mg/dL (1.6-2.3)
[2017-04-02] MEDS: (Novolog) Insulin Aspart, Recombinant 100 u/ml 10 ml vial SC SCH ×4 (09:20→22:50)
[2017-04-02] MEDS: Fluticasone-Salmeterol 100-50mcg Diskus IH SCH (09:22)
--- NOTE | 2017-04-02 09:45 | CP.PCM.PN ---
Subjective - Date & Time of Evaluation Date of Evaluation: 04/02/17 Time of Evaluation: 09:43 - Subjective Subjective: Patient seen bedside with attending Dr. Barnes regarding B/L TMA sites. Patient appears in NAD and AAOx3. Patient appears more alert today, however does not know what day it is. Denies any pain or complications to LE. Denies F/C/N/V/ SOB, just complains of cough. Objective - Vital Signs/Intake and Output Vital Signs (last 24 hours): Temp Pulse Resp BP Pulse Ox 97.2 F L 92 H 20 94/62 L 97 04/02/17 08:25 04/02/17 08:25 04/02/17 08:25 04/02/17 08:25 04/02/17 08:25 - Medications Medications: Current Medications Acetylcysteine (Acetylcysteine 20%) 4 ml INH RQ8 [facility] Last Admin: 04/02/17 09:22 Dose: Not Given Albuterol/Ipratropium (Duoneb 3 Mg/0.5 Mg (3 Ml) Ud) 3 ml INH RQ6 [facility] Last Admin: 04/02/17 09:22 Dose: Not Given Amiodarone HCl (Cordarone) 200 mg PO DAILY [facility] Last Admin: 04/01/17 11:05 Dose: 200 mg Cilostazol (Pletal) 100 mg PO BID [facility] Last Admin: 04/01/17 18:07 Dose: 100 mg Collagenase (Santyl) 1 gm TOP DAILY [facility] Last Admin: 04/01/17 11:07 Dose: 1 applic Docusate Sodium (Colace) 100 mg PO DAILY [facility] Last Admin: 04/01/17 11:05 Dose: 100 mg Ferrous Sulfate (Feosol) 325 mg PO BID [facility] Last Admin: 04/01/17 18:05 Dose: 325 mg Furosemide (Lasix) 40 mg IVP DAILY [facility] Last Admin: 04/01/17 11:05 Dose: 40 mg Gabapentin (Neurontin) 100 mg PO BID [facility] Last Admin: 04/01/17 18:05 Dose: 100 mg Guaifenesin (Mucinex La) 600 mg PO BID [facility] Last Admin: 04/01/17 18:04 Dose: 600 mg Heparin Sodium (Porcine) (Heparin) 5,000 units SC Q8 [facility] Last Admin: 04/02/17 06:35 Dose: 5,000 units Fluconazole (Diflucan Iv 200 Mg/100 Ml Ns) 100 mls @ 100 mls/hr IVPB DAILY [facility] Stop: 04/04/17 10:59 Last Admin: 04/01/17 10:30 Dose: 100 mls/hr Imipenem/Cilastatin Sodium 250 (mg/ Sodium Chloride) 100 mls @ 100 mls/hr IVPB Q8H [facility] Last Admin: 04/02/17 06:35 Dose: 100 mls/hr Insulin Aspart (Novolog) 0 unit SC ACHS [facility] PRN Reason: Protocol Last Admin: 04/01/17 22:14 Dose: Not Given Insulin Glargine (Lantus) 10 unit SC DAILY [facility] Last Admin: 04/01/17 11:08 Dose: 10 u Mupirocin (Bactroban Ointment) 0 gm TOP BID [facility] Last Admin: 04/01/17 18:08 Dose: 1 applic Pantoprazole Sodium (Protonix Ec Tab) 40 mg PO DAILY [facility] Last Admin: 04/01/17 11:05 Dose: 40 mg Polyethylene Glycol (Miralax) 17 gm PO BID [facility] Last Admin: 04/01/17 18:08 Dose: 17 gm Promethazine HCl/Codeine (Phenergan/Codeine Oral Syrup) 5 ml PO Q4 PRN PRN Reason: Cough Last Admin: 03/30/17 17:12 Dose: 5 ml Fluticasone/Salmeterol (Advair Diskus 100/50) 1 puff IH RQD [facility] Last Admin: 04/02/17 09:22 Dose: Not Given - Labs Labs: 04/02/17 08:00 04/02/17 08:00 PT 15.4 SECONDS (9.7-12.2) H 03/27/17 06:31 INR 1.4 03/27/17 06:31 APTT 32 SECONDS (21-34) 03/26/17 06:03 - Constitutional Appears: Well, Non-toxic, No Acute Distress - Extremities Exam Additional comments: Le exam: Vascular: Dp and PT pulses non-palpable, CFT >5sec to dorsal and plantar flaps , temperature cool to touch B/L. Neuro: Gross sensation diminished. Derm: Right TMA site with eschar at medial aspect of incision and hyerpkeratotic tissue at lateral portion, no drainage, no probe to bone, no malodor. Left TMA site with no dehiscence, no drainage, skin edges with minimal hyerpkeratotic tissue. MSK: B/L TMA - Neurological Exam Neurological Exam: Alert, Awake, Oriented x3 - Psychiatric Exam Psychiatric exam: Normal Affect, Normal Mood Assessment and Plan - Assessment and Plan (Free Text) Assessment: 71 y/o male with B/L TMA Plan: patient evaluated and chart reviewed seen at bedside with attending Dr. Barnes labs and vitals reviewed; afebrile R TMA dressed with bactroban, santyl, DSD L TMA dressed with DSD no surgical intervention planned at this time. will continue to follow while in hospital.
--- NOTE | 2017-04-02 11:03 | CT ---
CT chest without IV contrast Indication: Pleural effusion Technique: Contiguous axial images were obtained through the chest without intravenous contrast enhancement. Sagittal and coronal reconstructions were generated and reviewed. This CT exam was performed using 1 or more of the falling dose reduction techniques: Automated exposure control, adjustment of the MAA and/or kV according to patient size, and/or use of iterative reconstruction technique. Radiation dose (DLP): 696.94 MGy-cm. Comparison: Chest x-ray performed 03/27/17 Findings: Right-sided PICC extends to the SVC. Visualized portions of the inferior thyroid gland appear unremarkable. The unenhanced mediastinal and hilar vascular structures appear grossly unremarkable. Sternotomy wires. Cardiomegaly. Dense coronary artery calcifications and valvular calcifications. Atherosclerotic calcifications of the aorta. Prevascular and mediastinal lymph nodes measuring up to 14 mm in short axis. Evaluation for adenopathy is limited by lack of IV contrast, in particular hilar adenopathy. Perihilar infiltrates. Small bilateral pleural effusions and associated compressive consolidations. No pneumothorax. Limited visualization of the noncontrast upper abdomen demonstrates diffuse ascites. Cholecystectomy clips. Degenerative changes. Impression: Small bilateral pleural effusions and associated compressive consolidations. Perihilar infiltrates. Recommend follow-up to resolution. Right-sided PICC. Cardiomegaly. Dense valvular and coronary artery calcifications. Prevascular and mediastinal lymph nodes measuring up to 14 mm in short axis. Limited visualization of the upper abdomen reveals diffuse ascites. Cholecystectomy clips.
--- NOTE | 2017-04-02 12:28 | RAD ---
PROCEDURE: Radiographs of the chest and abdomen (obstructive series) HISTORY: 03/31/2017 COMPARISON: No prior. TECHNIQUE: AP radiograph of the chest, with upright and supine radiographs of the abdomen. FINDINGS: CHEST: Lungs: Clear. Cardiovascular: Normal heart size. Sternotomy wires noted. No congestive change. Pleura: No pleural fluid. No pneumothorax. Other findings: None. ABDOMEN AND PELVIS: Bowel: No evidence of bowel obstruction. Mild retained feces. Free air: None. Bones: Unremarkable. Other findings: None. IMPRESSION: No evidence of bowel obstruction. No pulmonary infiltrate. Mild retained feces.
[2017-04-02] MEDS: POLYETHYLENE GLYCOL 3350 17 GM/Dose PACKET PO SCH ×2 (12:36→19:02)
[2017-04-02] MEDS: Cilostazol 100 mg Tab UD PO SCH ×2 (12:36→19:02)
[2017-04-02] MEDS: Fluconazole IV 200mg/100 ml NS 100 ML IVPB SCH ×2 (12:36→12:38)
[2017-04-02] MEDS: Pantoprazole 40 mg EC Tab PO SCH (12:37)
[2017-04-02] MEDS: guaiFENesin 600 mg ER Tab PO SCH ×2 (12:37→19:02)
[2017-04-02] MEDS: Collagenase 250 Units/gm Ointment(30 gm) TOP SCH (12:38)
[2017-04-02] MEDS: (Lantus) Insulin Glargine, Recombinant SC SCH (15:15)
--- NOTE | 2017-04-02 15:16 | CP.PCM.PN ---
Subjective - Date & Time of Evaluation Date of Evaluation: 04/02/17 Time of Evaluation: 13:50 - Subjective Subjective: not swallowing well chronic cough, can't " cough it up" constipated no chest pressure no urinary complaints no fever no chills memory good no rash family at bedside Objective - Vital Signs/Intake and Output Vital Signs (last 24 hours): Temp Pulse Resp BP Pulse Ox 97.2 F L 92 H 20 110/68 97 04/02/17 08:25 04/02/17 08:25 04/02/17 08:25 04/02/17 12:37 04/02/17 08:25 - Medications Medications: Current Medications Acetylcysteine (Acetylcysteine 20%) 4 ml INH RQ8 [facility] Last Admin: 04/02/17 09:22 Dose: Not Given Albuterol/Ipratropium (Duoneb 3 Mg/0.5 Mg (3 Ml) Ud) 3 ml INH RQ6 [facility] Last Admin: 04/02/17 09:22 Dose: Not Given Amiodarone HCl (Cordarone) 200 mg PO DAILY [facility] Last Admin: 04/02/17 12:36 Dose: 200 mg Cilostazol (Pletal) 100 mg PO BID [facility] Last Admin: 04/02/17 12:36 Dose: 100 mg Collagenase (Santyl) 1 gm TOP DAILY [facility] Last Admin: 04/02/17 12:38 Dose: 1 applic Docusate Sodium (Colace) 100 mg PO DAILY [facility] Last Admin: 04/02/17 12:37 Dose: 100 mg Ferrous Sulfate (Feosol) 325 mg PO BID [facility] Last Admin: 04/02/17 12:38 Dose: 325 mg Furosemide (Lasix) 40 mg IVP DAILY [facility] Last Admin: 04/02/17 12:37 Dose: 40 mg Gabapentin (Neurontin) 100 mg PO BID [facility] Last Admin: 04/02/17 12:37 Dose: 100 mg Guaifenesin (Mucinex La) 600 mg PO BID [facility] Last Admin: 04/02/17 12:37 Dose: 600 mg Heparin Sodium (Porcine) (Heparin) 5,000 units SC Q8 [facility] Last Admin: 04/02/17 06:35 Dose: 5,000 units Fluconazole (Diflucan Iv 200 Mg/100 Ml Ns) 100 mls @ 100 mls/hr IVPB DAILY [facility] Stop: 04/04/17 10:59 Last Admin: 04/02/17 12:38 Dose: 100 mls/hr Imipenem/Cilastatin Sodium 250 (mg/ Sodium Chloride) 100 mls @ 100 mls/hr IVPB Q8H [facility] Last Admin: 04/02/17 06:35 Dose: 100 mls/hr Insulin Aspart (Novolog) 0 unit SC ACHS [facility] PRN Reason: Protocol Last Admin: 04/02/17 09:20 Dose: Not Given Insulin Glargine (Lantus) 10 unit SC DAILY [facility] Last Admin: 04/01/17 11:08 Dose: 10 u Mupirocin (Bactroban Ointment) 0 gm TOP BID [facility] Last Admin: 04/02/17 12:38 Dose: 1 applic Pantoprazole Sodium (Protonix Ec Tab) 40 mg PO DAILY [facility] Last Admin: 04/02/17 12:37 Dose: 40 mg Polyethylene Glycol (Miralax) 17 gm PO BID [facility] Last Admin: 04/02/17 12:36 Dose: 17 gm Promethazine HCl/Codeine (Phenergan/Codeine Oral Syrup) 5 ml PO Q4 PRN PRN Reason: Cough Last Admin: 03/30/17 17:12 Dose: 5 ml Fluticasone/Salmeterol (Advair Diskus 100/50) 1 puff IH RQD [facility] Last Admin: 04/02/17 09:22 Dose: Not Given - Labs Labs: 04/02/17 08:00 04/02/17 08:00 PT 15.4 SECONDS (9.7-12.2) H 03/27/17 06:31 INR 1.4 03/27/17 06:31 APTT 32 SECONDS (21-34) 03/26/17 06:03 - Constitutional Appears: Chronically Ill - Head Exam Head Exam: ATRAUMATIC - Eye Exam Eye Exam: EOMI, Normal appearance - ENT Exam ENT Exam: Mucous Membranes Moist - Respiratory Exam Respiratory Exam: Decreased Breath Sounds. absent: Chest Wall Tenderness - Cardiovascular Exam Cardiovascular Exam: REGULAR RHYTHM. absent: Rubs - GI/Abdominal Exam GI & Abdominal Exam: Distended, Firm - Extremities Exam Extremities Exam: Pedal Edema - Neurological Exam Neurological Exam: Alert, Oriented x3 - Psychiatric Exam Psychiatric exam: Normal Affect Assessment and Plan - Assessment and Plan (Free Text) Assessment: stable ckd avoid nephrotoxic agents monitor bowel function monitor swallowing will follow
--- NOTE | 2017-04-02 16:34 | CP.PCM.PN ---
Subjective - Date & Time of Evaluation Date of Evaluation: 04/02/17 Time of Evaluation: 16:30 - Subjective Subjective: Patient denies having nausea, vomiting, abdominal pain. He has not had a bowel movement so far today. Objective - Vital Signs/Intake and Output Vital Signs (last 24 hours): Temp Pulse Resp BP Pulse Ox 97.2 F L 92 H 20 110/68 97 04/02/17 08:25 04/02/17 08:25 04/02/17 08:25 04/02/17 12:37 04/02/17 08:25 - Medications Medications: Current Medications Acetylcysteine (Acetylcysteine 20%) 4 ml INH RQ8 [facility] Last Admin: 04/02/17 09:22 Dose: Not Given Albuterol/Ipratropium (Duoneb 3 Mg/0.5 Mg (3 Ml) Ud) 3 ml INH RQ6 [facility] Last Admin: 04/02/17 15:48 Dose: Not Given Amiodarone HCl (Cordarone) 200 mg PO DAILY [facility] Last Admin: 04/02/17 12:36 Dose: 200 mg Cilostazol (Pletal) 100 mg PO BID [facility] Last Admin: 04/02/17 12:36 Dose: 100 mg Collagenase (Santyl) 1 gm TOP DAILY [facility] Last Admin: 04/02/17 12:38 Dose: 1 applic Docusate Sodium (Colace) 100 mg PO DAILY [facility] Last Admin: 04/02/17 12:37 Dose: 100 mg Ferrous Sulfate (Feosol) 325 mg PO BID [facility] Last Admin: 04/02/17 12:38 Dose: 325 mg Furosemide (Lasix) 40 mg IVP DAILY [facility] Last Admin: 04/02/17 12:37 Dose: 40 mg Gabapentin (Neurontin) 100 mg PO BID [facility] Last Admin: 04/02/17 12:37 Dose: 100 mg Guaifenesin (Mucinex La) 600 mg PO BID [facility] Last Admin: 04/02/17 12:37 Dose: 600 mg Heparin Sodium (Porcine) (Heparin) 5,000 units SC Q8 [facility] Last Admin: 04/02/17 15:14 Dose: 5,000 units Fluconazole (Diflucan Iv 200 Mg/100 Ml Ns) 100 mls @ 100 mls/hr IVPB DAILY [facility] Stop: 04/04/17 10:59 Last Admin: 04/02/17 12:38 Dose: 100 mls/hr Imipenem/Cilastatin Sodium 250 (mg/ Sodium Chloride) 100 mls @ 100 mls/hr IVPB Q8H [facility] Last Admin: 04/02/17 06:35 Dose: 100 mls/hr Insulin Aspart (Novolog) 0 unit SC ACHS [facility] PRN Reason: Protocol Last Admin: 04/02/17 15:15 Dose: 2 unit Insulin Glargine (Lantus) 10 unit SC DAILY [facility] Last Admin: 04/02/17 15:15 Dose: 10 u Mupirocin (Bactroban Ointment) 0 gm TOP BID [facility] Last Admin: 04/02/17 12:38 Dose: 1 applic Pantoprazole Sodium (Protonix Ec Tab) 40 mg PO DAILY [facility] Last Admin: 04/02/17 12:37 Dose: 40 mg Polyethylene Glycol (Miralax) 17 gm PO BID [facility] Last Admin: 04/02/17 12:36 Dose: 17 gm Promethazine HCl/Codeine (Phenergan/Codeine Oral Syrup) 5 ml PO Q4 PRN PRN Reason: Cough Last Admin: 03/30/17 17:12 Dose: 5 ml Fluticasone/Salmeterol (Advair Diskus 100/50) 1 puff IH RQD [facility] Last Admin: 04/02/17 09:22 Dose: Not Given - Labs Labs: 04/02/17 08:00 04/02/17 08:00 PT 15.4 SECONDS (9.7-12.2) H 03/27/17 06:31 INR 1.4 03/27/17 06:31 APTT 32 SECONDS (21-34) 03/26/17 06:03 - Constitutional Appears: No Acute Distress - Head Exam Head Exam: ATRAUMATIC, NORMOCEPHALIC - Eye Exam Eye Exam: EOMI, PERRL - Neck Exam Neck Exam: absent: Lymphadenopathy, Thyromegaly - Respiratory Exam Respiratory Exam: NORMAL BREATHING PATTERN. absent: Rales, Rhonchi, Wheezes - Cardiovascular Exam Cardiovascular Exam: REGULAR RHYTHM, +S1, +S2. absent: Gallop, Rubs, Murmur - GI/Abdominal Exam GI & Abdominal Exam: Soft, Normal Bowel Sounds. absent: Tenderness, Mass, Organomegaly - Rectal Exam Rectal Exam: Deferred - Extremities Exam Extremities Exam: Pedal Edema. absent: Calf Tenderness Assessment and Plan (1) Anemia Assessment & Plan: Patient is anemic and has a positive test for fecal occult blood. He will have colonoscopy when cleared by cardiology. Status: Acute
--- NOTE | 2017-04-02 17:39 | CP.PCM.PN ---
Subjective - Date & Time of Evaluation Date of Evaluation: 04/02/17 Time of Evaluation: 16:00 - Subjective Subjective: patient seen and examined Still complaining of dry cough Passing gas but no bowel movement Abdominal series negative for obstruction CAT scan of the chest consistent with small bilateral pleural effusion and perihilar infiltrate Antibiotics for pneumonia Nebulizer treatment and antitussives Objective - Vital Signs/Intake and Output Vital Signs (last 24 hours): Temp Pulse Resp BP Pulse Ox 97.5 F L 96 H 20 110/73 95 04/02/17 15:00 04/02/17 15:00 04/02/17 15:00 04/02/17 15:00 04/02/17 15:00 - Medications Medications: Current Medications Acetylcysteine (Acetylcysteine 20%) 4 ml INH RQ8 [facility] Last Admin: 04/02/17 16:33 Dose: 4 ml Albuterol/Ipratropium (Duoneb 3 Mg/0.5 Mg (3 Ml) Ud) 3 ml INH RQ6 [facility] Last Admin: 04/02/17 16:33 Dose: 3 ml Amiodarone HCl (Cordarone) 200 mg PO DAILY [facility] Last Admin: 04/02/17 12:36 Dose: 200 mg Cilostazol (Pletal) 100 mg PO BID [facility] Last Admin: 04/02/17 12:36 Dose: 100 mg Collagenase (Santyl) 1 gm TOP DAILY [facility] Last Admin: 04/02/17 12:38 Dose: 1 applic Docusate Sodium (Colace) 100 mg PO DAILY [facility] Last Admin: 04/02/17 12:37 Dose: 100 mg Ferrous Sulfate (Feosol) 325 mg PO BID [facility] Last Admin: 04/02/17 12:38 Dose: 325 mg Furosemide (Lasix) 40 mg IVP DAILY [facility] Last Admin: 04/02/17 12:37 Dose: 40 mg Gabapentin (Neurontin) 100 mg PO BID [facility] Last Admin: 04/02/17 12:37 Dose: 100 mg Guaifenesin (Mucinex La) 600 mg PO BID [facility] Last Admin: 04/02/17 12:37 Dose: 600 mg Heparin Sodium (Porcine) (Heparin) 5,000 units SC Q8 [facility] Last Admin: 04/02/17 15:14 Dose: 5,000 units Fluconazole (Diflucan Iv 200 Mg/100 Ml Ns) 100 mls @ 100 mls/hr IVPB DAILY [facility] Stop: 04/04/17 10:59 Last Admin: 04/02/17 12:38 Dose: 100 mls/hr Imipenem/Cilastatin Sodium 250 (mg/ Sodium Chloride) 100 mls @ 100 mls/hr IVPB Q8H [facility] Last Admin: 04/02/17 06:35 Dose: 100 mls/hr Insulin Aspart (Novolog) 0 unit SC ACHS [facility] PRN Reason: Protocol Last Admin: 04/02/17 15:15 Dose: 2 unit Insulin Glargine (Lantus) 10 unit SC DAILY [facility] Last Admin: 04/02/17 15:15 Dose: 10 u Mupirocin (Bactroban Ointment) 0 gm TOP BID [facility] Last Admin: 04/02/17 12:38 Dose: 1 applic Pantoprazole Sodium (Protonix Ec Tab) 40 mg PO DAILY [facility] Last Admin: 04/02/17 12:37 Dose: 40 mg Polyethylene Glycol (Miralax) 17 gm PO BID [facility] Last Admin: 04/02/17 12:36 Dose: 17 gm Promethazine HCl/Codeine (Phenergan/Codeine Oral Syrup) 5 ml PO Q4 PRN PRN Reason: Cough Last Admin: 03/30/17 17:12 Dose: 5 ml Fluticasone/Salmeterol (Advair Diskus 100/50) 1 puff IH RQD [facility] Last Admin: 04/02/17 09:22 Dose: Not Given - Labs Labs: 04/02/17 08:00 04/02/17 08:00 PT 15.4 SECONDS (9.7-12.2) H 03/27/17 06:31 INR 1.4 03/27/17 06:31 APTT 32 SECONDS (21-34) 03/26/17 06:03 Assessment and Plan (1) Cough Status: Acute (2) Acute exacerbation of CHF (congestive heart failure) Status: Acute (3) A-fib Status: Acute (4) GI bleed Status: Acute
--- NOTE | 2017-04-02 17:53 | CP.PCM.PN ---
Subjective - Date & Time of Evaluation Date of Evaluation: 04/02/17 Time of Evaluation: 07:10 - Subjective Subjective: Patient seen and examined at bedside this AM. NAEO. patient is passing gas but has not had a bowel movement. Is tolerating his regular diet without nausea or vomiting. Objective - Vital Signs/Intake and Output Vital Signs (last 24 hours): Temp Pulse Resp BP Pulse Ox 97.5 F L 96 H 20 110/73 95 04/02/17 15:00 04/02/17 15:00 04/02/17 15:00 04/02/17 15:00 04/02/17 15:00 - Medications Medications: Current Medications Acetylcysteine (Acetylcysteine 20%) 4 ml INH RQ8 [facility] Last Admin: 04/02/17 16:33 Dose: 4 ml Albuterol/Ipratropium (Duoneb 3 Mg/0.5 Mg (3 Ml) Ud) 3 ml INH RQ6 [facility] Last Admin: 04/02/17 16:33 Dose: 3 ml Amiodarone HCl (Cordarone) 200 mg PO DAILY [facility] Last Admin: 04/02/17 12:36 Dose: 200 mg Cilostazol (Pletal) 100 mg PO BID [facility] Last Admin: 04/02/17 12:36 Dose: 100 mg Collagenase (Santyl) 1 gm TOP DAILY [facility] Last Admin: 04/02/17 12:38 Dose: 1 applic Docusate Sodium (Colace) 100 mg PO DAILY [facility] Last Admin: 04/02/17 12:37 Dose: 100 mg Ferrous Sulfate (Feosol) 325 mg PO BID [facility] Last Admin: 04/02/17 12:38 Dose: 325 mg Furosemide (Lasix) 40 mg IVP DAILY [facility] Last Admin: 04/02/17 12:37 Dose: 40 mg Gabapentin (Neurontin) 100 mg PO BID [facility] Last Admin: 04/02/17 12:37 Dose: 100 mg Guaifenesin (Mucinex La) 600 mg PO BID [facility] Last Admin: 04/02/17 12:37 Dose: 600 mg Heparin Sodium (Porcine) (Heparin) 5,000 units SC Q8 [facility] Last Admin: 04/02/17 15:14 Dose: 5,000 units Fluconazole (Diflucan Iv 200 Mg/100 Ml Ns) 100 mls @ 100 mls/hr IVPB DAILY [facility] Stop: 04/04/17 10:59 Last Admin: 04/02/17 12:38 Dose: 100 mls/hr Imipenem/Cilastatin Sodium 250 (mg/ Sodium Chloride) 100 mls @ 100 mls/hr IVPB Q8H [facility] Last Admin: 04/02/17 06:35 Dose: 100 mls/hr Insulin Aspart (Novolog) 0 unit SC ACHS [facility] PRN Reason: Protocol Last Admin: 04/02/17 15:15 Dose: 2 unit Insulin Glargine (Lantus) 10 unit SC DAILY [facility] Last Admin: 04/02/17 15:15 Dose: 10 u Mupirocin (Bactroban Ointment) 0 gm TOP BID [facility] Last Admin: 04/02/17 12:38 Dose: 1 applic Pantoprazole Sodium (Protonix Ec Tab) 40 mg PO DAILY [facility] Last Admin: 04/02/17 12:37 Dose: 40 mg Polyethylene Glycol (Miralax) 17 gm PO BID [facility] Last Admin: 04/02/17 12:36 Dose: 17 gm Promethazine HCl/Codeine (Phenergan/Codeine Oral Syrup) 5 ml PO Q4 PRN PRN Reason: Cough Last Admin: 03/30/17 17:12 Dose: 5 ml Fluticasone/Salmeterol (Advair Diskus 100/50) 1 puff IH RQD [facility] Last Admin: 04/02/17 09:22 Dose: Not Given - Labs Labs: 04/02/17 08:00 04/02/17 08:00 PT 15.4 SECONDS (9.7-12.2) H 03/27/17 06:31 INR 1.4 03/27/17 06:31 APTT 32 SECONDS (21-34) 03/26/17 06:03 - Constitutional Appears: Well, Non-toxic, No Acute Distress - Head Exam Head Exam: ATRAUMATIC, NORMOCEPHALIC - Eye Exam Eye Exam: Normal appearance. absent: Conjunctival injection, Scleral icterus - ENT Exam ENT Exam: Mucous Membranes Moist, Normal Oropharynx - Respiratory Exam Respiratory Exam: NORMAL BREATHING PATTERN. absent: Accessory Muscle Use, Respiratory Distress - GI/Abdominal Exam GI & Abdominal Exam: Soft. absent: Distended, Tenderness, Rebound - Extremities Exam Extremities Exam: absent: Calf Tenderness, Pedal Edema, Tenderness - Neurological Exam Neurological Exam: Alert, Awake, Oriented x3 - Psychiatric Exam Psychiatric exam: Normal Affect, Normal Mood - Skin Skin Exam: Dry, Intact, Normal Color, Warm Assessment and Plan - Assessment and Plan (Free Text) Assessment: 71M with severe constipation obstructive series today: much improved over 2 days ago obstructive series. No sign of obstruction Plan: -Continue enemas Q3 hours until has a substantial bowel movement -Continue miralax -Continue diet -Continue management per primary -If patient remains refractory to treatment, patient may benefit from a colonoscopic disimpaction Discussed with Dr. Marco Serrano, PGY2
--- NOTE | 2017-04-02 20:32 | CP.PCM.PN ---
<Nasrin Guzman - Last Filed: 04/02/17 20:35> Subjective - Date & Time of Evaluation Date of Evaluation: 04/02/17 Time of Evaluation: 20:29 - Subjective Subjective: Medicine Progress Note- Dr. Leonard Service Patient was seen and examined at bedside in no acute distress. Patient still has not had a bowel movement. Patient denies chest pain, abdominal pain, nausea , vomiting, and diarrhea. Objective - Vital Signs/Intake and Output Vital Signs (last 24 hours): Temp Pulse Resp BP Pulse Ox 97.5 F L 96 H 20 110/73 95 04/02/17 15:00 04/02/17 15:00 04/02/17 15:00 04/02/17 15:00 04/02/17 15:00 - Medications Medications: Current Medications Acetylcysteine (Acetylcysteine 20%) 4 ml INH RQ8 [facility] Last Admin: 04/02/17 16:33 Dose: 4 ml Albuterol/Ipratropium (Duoneb 3 Mg/0.5 Mg (3 Ml) Ud) 3 ml INH RQ6 [facility] Last Admin: 04/02/17 19:53 Dose: Not Given Amiodarone HCl (Cordarone) 200 mg PO DAILY [facility] Last Admin: 04/02/17 12:36 Dose: 200 mg Cilostazol (Pletal) 100 mg PO BID [facility] Last Admin: 04/02/17 19:02 Dose: 100 mg Collagenase (Santyl) 1 gm TOP DAILY [facility] Last Admin: 04/02/17 12:38 Dose: 1 applic Docusate Sodium (Colace) 100 mg PO DAILY [facility] Last Admin: 04/02/17 12:37 Dose: 100 mg Ferrous Sulfate (Feosol) 325 mg PO BID [facility] Last Admin: 04/02/17 19:02 Dose: 325 mg Furosemide (Lasix) 40 mg IVP DAILY [facility] Last Admin: 04/02/17 12:37 Dose: 40 mg Gabapentin (Neurontin) 100 mg PO BID [facility] Last Admin: 04/02/17 19:02 Dose: 100 mg Guaifenesin (Mucinex La) 600 mg PO BID [facility] Last Admin: 04/02/17 19:02 Dose: 600 mg Heparin Sodium (Porcine) (Heparin) 5,000 units SC Q8 [facility] Last Admin: 04/02/17 15:14 Dose: 5,000 units Fluconazole (Diflucan Iv 200 Mg/100 Ml Ns) 100 mls @ 100 mls/hr IVPB DAILY [facility] Stop: 04/04/17 10:59 Last Admin: 04/02/17 12:38 Dose: 100 mls/hr Imipenem/Cilastatin Sodium 250 (mg/ Sodium Chloride) 100 mls @ 100 mls/hr IVPB Q8H [facility] Last Admin: 04/02/17 19:02 Dose: 100 mls/hr Insulin Aspart (Novolog) 0 unit SC ACHS [facility] PRN Reason: Protocol Last Admin: 04/02/17 19:02 Dose: 4 unit Insulin Glargine (Lantus) 10 unit SC DAILY [facility] Last Admin: 04/02/17 15:15 Dose: 10 u Mupirocin (Bactroban Ointment) 0 gm TOP BID [facility] Last Admin: 04/02/17 19:02 Dose: 1 applic Pantoprazole Sodium (Protonix Ec Tab) 40 mg PO DAILY [facility] Last Admin: 04/02/17 12:37 Dose: 40 mg Polyethylene Glycol (Miralax) 17 gm PO BID [facility] Last Admin: 04/02/17 19:02 Dose: 17 gm Promethazine HCl/Codeine (Phenergan/Codeine Oral Syrup) 5 ml PO Q4 PRN PRN Reason: Cough Last Admin: 03/30/17 17:12 Dose: 5 ml Fluticasone/Salmeterol (Advair Diskus 100/50) 1 puff IH RQD [facility] Last Admin: 04/02/17 09:22 Dose: Not Given - Labs Labs: 04/02/17 08:00 04/02/17 08:00 PT 15.4 SECONDS (9.7-12.2) H 03/27/17 06:31 INR 1.4 03/27/17 06:31 APTT 32 SECONDS (21-34) 03/26/17 06:03 - Constitutional Appears: No Acute Distress - Head Exam Head Exam: NORMAL INSPECTION, NORMOCEPHALIC - Eye Exam Eye Exam: EOMI, Normal appearance - ENT Exam ENT Exam: Mucous Membranes Moist - Neck Exam Neck Exam: Normal Inspection - Respiratory Exam Respiratory Exam: Rhonchi, Wheezes. absent: Clear to Ausculation Bilateral - Cardiovascular Exam Cardiovascular Exam: +S1, +S2 - GI/Abdominal Exam GI & Abdominal Exam: Distended, Tenderness, Normal Bowel Sounds - Extremities Exam Extremities Exam: Pedal Edema, Tenderness. absent: Normal Inspection - Neurological Exam Neurological Exam: Alert, Awake, Oriented x3 - Psychiatric Exam Psychiatric exam: Normal Affect, Normal Mood - Skin Skin Exam: Dry, Intact, Normal Color, Warm Assessment and Plan (1) Acute exacerbation of CHF (congestive heart failure) Assessment & Plan: Consult: Dr. Canales (Cardiology) on board-->help appreciated * Patient is not a candidate for valve replacement Echocardiogram (03/21/17): left ventricle systolic function is severely impaired , EF: 25%, spetal motion consistent with post operative state. Global hypokinesis of the left ventricle. Grade II-pseudonormal filling. Severe valvular aortic stenosis. Mitral regurgitation is moderate. Severe pulmonary hypertension Per cardiology, patient is not a surgical candidate for aortic stenosis Amiodarone 200mg PO daily Lasix 40mg IVP Daily Chest X-ray (03/27/17): Bilateral perihilar opacity, left greater than right. Congestive change. No pleural effusion. Nonspecific finding. Possible congestive heart failure/pulmonary edema. Rule out pneumonia. Pillow to elevate scrotum ordered 03/31/[address] 04/02/17- small b/l pleural effusions and associated compressive consolidations; perihilar infiltrates. cardiomegaly; valvular and coronary artery calcifications; diffuse ascites Status: Acute (2) Anemia Assessment & Plan: Acute anemia, likely due to acute blood loss Stable H/H (04/02) 8.7/27.5; (04/01) 8.8/27.2; (03/31) 9.4/29.8; (03/28): 9.6/29.3; H/H (03/27) : 9.6/30.2; H/H (03/26): 8.2/25.9 Iron: 36, TIBC: 285, %14, Ferritin: 48.5 Endoscopy (03/21): monillial esophagitis. Cells for cytology obtained. Erosive gastropahty. Normal examined duodenum-->negative cytology cells Patient has had 3 units of PRBC transfused during hospitalization Consult: Dr. Ag (GI) on board-->help appreciated CT Abd/pelvis: no evidence of intraperitoneal hemorrhage or retroperitoneal hemorrhage Ferrous sulfate 325mg PO BID Ascites fluid cx: no growth Status: Chronic (3) Ascites Assessment & Plan: Possibly secondary to CHF and Acute Kidney Injury Intervential Radiology Consult, Dr. Franco Skaggs --> Help Appreciated Paracentesis performed 03/27/17: removed 2L of dark yellow fluid; Per Dr. Ag's note the total PMN count on the fluid was 216, which is below the threshold for SBP (Must be below 250). - LDH of peritoneal fluid 82 - Glucose of peritoneal fluid 124 - Albumin of peritoneal fluid 1.4 - Peritoneal Fluid: Clear; WBC- 309, RBS 1225, Total Cell Count-100, Neutrophil-70, Lymphocyte-25, Monocyte/Macrophage-5 - Fluid culture/smear of peritoneal fluid- no growth detected Status: Acute (4) UTI (urinary tract infection) Assessment & Plan: Discontinued 03/31/17- Primaxin 250mg IV 6 hours (active since 03/22/17) Urine culture (03/20/17): +ESBL Repeat Urine Culture (03/27/17)- No growth Status: Acute (5) A-fib Assessment & Plan: Amiodarone 200mg PO daily Patient is off Xarelto secondary to GI workup r/o bleed Status: Acute (6) Cough Assessment & Plan: Acute on chronic cough, acute bronchitis, suspected pneumonia Started Phenergan/Codeine oral syrup 5ml PO Q4 PRN Sputum Culture: Few polymorphonuclear WBS, few epithelial cells, no organisms seen. Status: Acute (7) LETICIA (acute kidney injury) Assessment & Plan: Consult: Dr. Reynolds (nephrology) on board-->help appreciated BUN 62, Cr 1.7 on 03/31/17 BUN 65, Cr 2 on 04/01/17 BUN 60, Cr 2.2 on 04/02/17 Off Nadir/arb/statin Status: Acute (8) HTN (hypertension) Assessment & Plan: Patient is borderline hypotensive. 94/62 on 04/02/17 Status: Acute (9) Hx of CABG Assessment & Plan: Continue medical management as per cardiology. Status: Acute (10) Diabetes Assessment & Plan: Hgba1c: 7.2 Lantus 10 units subq daily Status: Chronic (11) Hyperlipidemia Assessment & Plan: Discontinued statin Status: Chronic (12) Peripheral vascular disease Assessment & Plan: Patient is on Pletal 100mg PO BID Status: Chronic (13) Esophageal candidiasis Assessment & Plan: On Diflucan 200mg IV q daily (active since 03/22/17); 3 more doses (04/02/17) Status: Acute (14) Constipation Assessment & Plan: Constipated for 7 days Dulcolax 5mg PO once on 03/31/17 Abdominal xray: gas distension of stomach and small bowel loops, may be ileus or obstruction Surgery consulted, Dr. Lara, help appreciated As per surgery, no surgery at this time; recommend CT w/PO contrast, tap water enema, PT, and activity. Tap water enema on 04/01/17- as per the nurse, only liquids and sediment was observed. Tap water enema ordered on 04/02/17 Abdominal obstructive series 04/02/17: no obstruction, no infiltrate; retained feces. a Status: Acute (15) Prophylactic measure Assessment & Plan: Protonix 40mg PO daily Discontinued heparin 5000 units subq 12 hours PT/OT evaluation 03/27/17: RN deferred because patient was going to have tapping of the belly. Palliative Care Consult placed on 03/27/17 Status: Acute <Noemí Leonard V - Last Filed: 04/06/17 20:34> Objective - Vital Signs/Intake and Output Vital Signs (last 24 hours): Temp Pulse Resp BP Pulse Ox 96.4 F L 84 13 95/59 L 100 04/06/17 20:00 04/06/17 19:17 04/06/17 19:17 04/06/17 19:17 04/06/17 19:17 Intake and Output: 04/06/17 04/07/17 18:59 06:59 Intake Total 1831.3 188.4 Output Total 1325 50 Balance 506.3 138.4 - Medications Medications: Current Medications Acetylcysteine (Acetylcysteine 20%) 4 ml INH RQ8 [facility] Last Admin: 04/06/17 07:36 Dose: 4 ml Albuterol/Ipratropium (Duoneb 3 Mg/0.5 Mg (3 Ml) Ud) 3 ml INH RQ6 [facility] Last Admin: 04/06/17 13:22 Dose: Not Given Cilostazol (Pletal) 100 mg PO BID [facility] Last Admin: 04/06/17 17:54 Dose: 100 mg Collagenase (Santyl) 1 gm TOP DAILY [facility] Last Admin: 04/06/17 09:40 Dose: 1 applic Famotidine (Pepcid) 20 mg PO DAILY [facility] Last Admin: 04/06/17 09:32 Dose: 20 mg Heparin Sodium (Porcine) (Heparin) 5,000 units SC Q8 [facility] Last Admin: 04/06/17 13:20 Dose: 5,000 units Imipenem/Cilastatin Sodium 250 (mg/ Sodium Chloride) 100 mls @ 100 mls/hr IVPB Q12 [facility] Last Admin: 04/06/17 09:26 Dose: 100 mls/hr Dexmedetomidine HCl 200 mcg/ (Sodium Chloride) 50 mls @ 4.37 mls/hr IV TITR PRN ; Protocol; 0.2 MCG/KG/HR PRN Reason: Sedation Last Admin: 04/06/17 14:06 Dose: 0.3 mcg/kg/hr, 6.56 mls/hr Dextrose (Dextrose 10% In Water) 500 mls @ 40 mls/hr IV .[id number] [facility] Last Admin: 04/06/17 18:07 Dose: Not Given Norepinephrine Bitartrate 8 mg (/ Dextrose) 258 mls @ 7.74 mls/hr IV .Q24H PRN ; Protocol; 4 MCG/MIN PRN Reason: TITRATE PER MD ORDER Last Titration: 04/06/17 20:00 Dose: 15 mcg/min, 29.02 mls/hr Insulin Aspart (Novolog) 0 unit SC Q6H [facility] PRN Reason: Protocol Last Admin: 04/06/17 18:29 Dose: Not Given Mupirocin (Bactroban Ointment) 0 gm TOP BID [facility] Last Admin: 04/06/17 17:54 Dose: 1 applic Fluticasone/Salmeterol (Advair Diskus 100/50) 1 puff IH RQD [facility] Last Admin: 04/06/17 07:34 Dose: Not Given - Labs Labs: 04/05/17 06:46 04/05/17 06:46 PT 15.4 SECONDS (9.7-12.2) H 03/27/17 06:31 INR 1.4 03/27/17 06:31 APTT 32 SECONDS (21-34) 03/26/17 06:03 Assessment and Plan (1) Acute exacerbation of CHF (congestive heart failure) Status: Acute (2) Acute renal insufficiency Status: Acute (3) Pneumonia Status: Acute (4) Severe aortic stenosis Status: Chronic (5) Candidiasis of esophagus Status: Acute (6) Esophageal candidiasis Status: Chronic (7) Ileus Status: Resolved (8) Peripheral vascular disease Status: Chronic (9) Anemia Status: Acute (10) Ascites Status: Acute (11) Anemia Status: Chronic (12) Prophylactic measure Status: Acute Attending/Attestation - Attestation I have personally seen and examined this patient.: Yes I have fully participated in the care of the patient.: Yes I have reviewed all pertinent clinical information, including history, physical exam and plan: Yes Notes (Text): This is late computer entry for 04/02/17. Patient seen, examined, and case discussed with day-time resident. Agree with the assessment and plan as written by the resident,. Assessment/Plan (1) Acute exacerbation of Systolic CHF (congestive heart failure); EF: 25% (2) Anemia, r/o GI cause for acute blood loss (3) Ascites like secondary to congestive heart failure (4) + ESBL UTI (urinary tract infection) on IV Abx (5) A-fibrillation on Amiodarone (6) Cough contributing pneumonia and congestive heart failure (7) LETICIA (acute kidney injury) (8) History of HTN (hypertension) off BP meds given borderline hypotensive (9) Hx of CABG (10) Diabetes (11) Hyperlipidemia (12) Peripheral vascular disease (13) Esophageal candidiasis, on IV antifungal (14) Constipation, undergoing workup with surgery (15) Prophylactic measure
[2017-04-03] MEDS: Acetylcysteine 20% Inhal Soln (4ml) INH SCH ×3 (01:04→16:22)
[2017-04-03] MEDS: Albuterol-Ipratrop 3 mg / 0.5 (3 ml) UD INH SCH ×3 (01:05→13:29)
[2017-04-03] MEDS: Fluticasone-Salmeterol 100-50mcg Diskus IH SCH (07:28)
[2017-04-03 07:32] LABS: BASO # 0.1 K/uL (0.0-0.2); BASO % 1.3 % (0.0-2.0); EOS # 0.2 K/uL (0.0-0.7); EOS % 3.1 % (0.0-4.0); HEMOGLOBIN 9.1 g/dL (12.0-18.0); LYMPH # 0.8 K/uL (1.0-4.3); LYMPH % 12.7 % (20.0-40.0); MEAN CELL VOLUME 84.2 fL (80.0-94.0); MEAN CORPUSCULAR HEMOGLOBIN 27.5 pg (27.0-31.0); MEAN CORPUSCULAR HGB CONC 32.7 g/dL (33.0-37.0); MEAN PLATELET VOLUME 8.5 fL (7.2-11.7); MONO # 0.4 K/uL (0.0-0.8); MONO % 5.9 % (0.0-10.0); RBC 3.32 Mil/uL (4.40-5.90); RED CELL DISTRIBUTION WIDTH 18.5 % (11.5-14.5); WHITE BLOOD COUNT 6.5 K/uL (4.8-10.8)
[2017-04-03 07:53] LABS: ALBUMIN 2.8 g/dL (3.5-5.0)
[2017-04-03 07:56] LABS: ALB/GLOB RATIO 0.7 (1.0-2.1)
[2017-04-03 07:57] LABS: CALCIUM 8.8 mg/dl (8.6-10.4); MAGNESIUM 2.2 mg/dL (1.6-2.3)
[2017-04-03] MEDS: (Novolog) Insulin Aspart, Recombinant 100 u/ml 10 ml vial SC SCH ×4 (08:30→22:13)
--- NOTE | 2017-04-03 10:19 | CP.PCM.PN ---
Subjective - Date & Time of Evaluation Date of Evaluation: 04/03/17 Time of Evaluation: 10:00 - Subjective Subjective: General sx progress note for Dr. Saadia Plata, PGY-1 Pt S & E at bedside. Pt reports no abdominal discomfort, states that he thinks he's passing gas. No BM as per nursing, tap water enemas are not being retained. Denies N/V/F/C, SOB. Objective - Vital Signs/Intake and Output Vital Signs (last 24 hours): Temp Pulse Resp BP Pulse Ox 97.3 F L 86 21 110/74 96 04/03/17 08:35 04/03/17 09:01 04/03/17 08:35 04/03/17 08:35 04/03/17 08:35 Intake and Output: 04/03/17 04/03/17 06:59 18:59 Output Total 250 Balance -250 - Medications Medications: Current Medications Acetylcysteine (Acetylcysteine 20%) 4 ml INH RQ8 [facility] Last Admin: 04/03/17 07:28 Dose: 4 ml Albuterol/Ipratropium (Duoneb 3 Mg/0.5 Mg (3 Ml) Ud) 3 ml INH RQ6 [facility] Last Admin: 04/03/17 07:27 Dose: 3 ml Cilostazol (Pletal) 100 mg PO BID [facility] Last Admin: 04/02/17 19:02 Dose: 100 mg Collagenase (Santyl) 1 gm TOP DAILY [facility] Last Admin: 04/02/17 12:38 Dose: 1 applic Docusate Sodium (Colace) 100 mg PO DAILY [facility] Last Admin: 04/02/17 12:37 Dose: 100 mg Ferrous Sulfate (Feosol) 325 mg PO BID [facility] Last Admin: 04/02/17 19:02 Dose: 325 mg Furosemide (Lasix) 40 mg IVP DAILY [facility] Last Admin: 04/02/17 12:37 Dose: 40 mg Gabapentin (Neurontin) 100 mg PO BID [facility] Last Admin: 04/02/17 19:02 Dose: 100 mg Guaifenesin (Mucinex La) 600 mg PO BID [facility] Last Admin: 04/02/17 19:02 Dose: 600 mg Heparin Sodium (Porcine) (Heparin) 5,000 units SC Q8 [facility] Last Admin: 04/03/17 05:40 Dose: 5,000 units Fluconazole (Diflucan Iv 200 Mg/100 Ml Ns) 100 mls @ 100 mls/hr IVPB DAILY [facility] Stop: 04/04/17 10:59 Last Admin: 04/02/17 12:38 Dose: 100 mls/hr Imipenem/Cilastatin Sodium 250 (mg/ Sodium Chloride) 100 mls @ 100 mls/hr IVPB Q8H [facility] Last Admin: 04/03/17 08:08 Dose: 100 mls/hr Insulin Aspart (Novolog) 0 unit SC ACHS [facility] PRN Reason: Protocol Last Admin: 04/02/17 22:50 Dose: Not Given Insulin Glargine (Lantus) 10 unit SC DAILY [facility] Last Admin: 04/02/17 15:15 Dose: 10 u Mupirocin (Bactroban Ointment) 0 gm TOP BID [facility] Last Admin: 04/02/17 19:02 Dose: 1 applic Pantoprazole Sodium (Protonix Ec Tab) 40 mg PO DAILY [facility] Last Admin: 04/02/17 12:37 Dose: 40 mg Polyethylene Glycol (Miralax) 17 gm PO BID [facility] Last Admin: 04/02/17 19:02 Dose: 17 gm Promethazine HCl/Codeine (Phenergan/Codeine Oral Syrup) 5 ml PO Q4 PRN PRN Reason: Cough Last Admin: 03/30/17 17:12 Dose: 5 ml Fluticasone/Salmeterol (Advair Diskus 100/50) 1 puff IH RQD [facility] Last Admin: 04/03/17 07:28 Dose: 1 puff - Labs Labs: 04/03/17 07:26 04/03/17 07:26 PT 15.4 SECONDS (9.7-12.2) H 03/27/17 06:31 INR 1.4 03/27/17 06:31 APTT 32 SECONDS (21-34) 03/26/17 06:03 - Constitutional Appears: Non-toxic, No Acute Distress - Head Exam Head Exam: ATRAUMATIC, NORMAL INSPECTION, NORMOCEPHALIC - Eye Exam Eye Exam: EOMI, Normal appearance - ENT Exam ENT Exam: Mucous Membranes Moist, Normal Exam - Neck Exam Neck Exam: Full ROM, Normal Inspection - Respiratory Exam Respiratory Exam: Rhonchi, NORMAL BREATHING PATTERN. absent: Chest Wall Tenderness, Clear to Ausculation Bilateral, Rales, Wheezes - Cardiovascular Exam Cardiovascular Exam: REGULAR RHYTHM, +S1, +S2 - GI/Abdominal Exam GI & Abdominal Exam: Distended, Soft, Hypoactive Bowel Sounds. absent: Firm, Guarding, Rigid, Tenderness - Exam Exam: Scrotal Swelling (improved) Additional comments: Flores catheter in place - Extremities Exam Extremities Exam: Pedal Edema (2+ pitting edema). absent: Tenderness Additional comments: B/L transmetatarsal amputation sites with dressing in place- C/D/I - Neurological Exam Neurological Exam: Alert, Awake, CN II-XII Intact, Oriented x3 - Psychiatric Exam Psychiatric exam: Normal Affect, Normal Mood - Skin Skin Exam: Dry, Intact, Normal Color, Warm Assessment and Plan - Assessment and Plan (Free Text) Assessment: 71M w/ constipation, enemas not being retained Plan: -FU Repeat abdominal obstructive series -Milk of Mag -Monitor for BM DW attending Shilpa Plata, PGY-1
--- NOTE | 2017-04-03 11:12 | CP.PCM.PN ---
Subjective - Date & Time of Evaluation Date of Evaluation: 04/03/17 Time of Evaluation: 11:09 - Subjective Subjective: Still confused Hypoactive BSs noted; no recent BMs CXR shows no CHF now; AXR without obstruction Has been on Feso4- need to stop this Objective - Vital Signs/Intake and Output Vital Signs (last 24 hours): Temp Pulse Resp BP Pulse Ox 97.3 F L 86 21 110/74 96 04/03/17 08:35 04/03/17 09:01 04/03/17 08:35 04/03/17 08:35 04/03/17 08:35 Intake and Output: 04/03/17 04/03/17 06:59 18:59 Output Total 250 Balance -250 - Medications Medications: Current Medications Acetylcysteine (Acetylcysteine 20%) 4 ml INH RQ8 [facility] Last Admin: 04/03/17 07:28 Dose: 4 ml Albuterol/Ipratropium (Duoneb 3 Mg/0.5 Mg (3 Ml) Ud) 3 ml INH RQ6 [facility] Last Admin: 04/03/17 07:27 Dose: 3 ml Cilostazol (Pletal) 100 mg PO BID [facility] Last Admin: 04/02/17 19:02 Dose: 100 mg Collagenase (Santyl) 1 gm TOP DAILY [facility] Last Admin: 04/02/17 12:38 Dose: 1 applic Docusate Sodium (Colace) 100 mg PO DAILY [facility] Last Admin: 04/02/17 12:37 Dose: 100 mg Gabapentin (Neurontin) 100 mg PO BID [facility] Last Admin: 04/02/17 19:02 Dose: 100 mg Guaifenesin (Mucinex La) 600 mg PO BID [facility] Last Admin: 04/02/17 19:02 Dose: 600 mg Heparin Sodium (Porcine) (Heparin) 5,000 units SC Q8 [facility] Last Admin: 04/03/17 05:40 Dose: 5,000 units Fluconazole (Diflucan Iv 200 Mg/100 Ml Ns) 100 mls @ 100 mls/hr IVPB DAILY [facility] Stop: 04/04/17 10:59 Last Admin: 04/02/17 12:38 Dose: 100 mls/hr Imipenem/Cilastatin Sodium 250 (mg/ Sodium Chloride) 100 mls @ 100 mls/hr IVPB Q12 [facility] Insulin Aspart (Novolog) 0 unit SC ACHS [facility] PRN Reason: Protocol Last Admin: 04/02/17 22:50 Dose: Not Given Insulin Glargine (Lantus) 10 unit SC DAILY [facility] Last Admin: 04/02/17 15:15 Dose: 10 u Lactulose (Enulose) 20 gm PO HS [facility] Mupirocin (Bactroban Ointment) 0 gm TOP BID [facility] Last Admin: 04/02/17 19:02 Dose: 1 applic Pantoprazole Sodium (Protonix Ec Tab) 40 mg PO DAILY [facility] Last Admin: 04/02/17 12:37 Dose: 40 mg Polyethylene Glycol (Miralax) 17 gm PO BID [facility] Last Admin: 04/02/17 19:02 Dose: 17 gm Promethazine HCl/Codeine (Phenergan/Codeine Oral Syrup) 5 ml PO Q4 PRN PRN Reason: Cough Last Admin: 03/30/17 17:12 Dose: 5 ml Fluticasone/Salmeterol (Advair Diskus 100/50) 1 puff IH RQD [facility] Last Admin: 04/03/17 07:28 Dose: 1 puff - Labs Labs: 04/03/17 07:26 04/03/17 07:26 PT 15.4 SECONDS (9.7-12.2) H 03/27/17 06:31 INR 1.4 03/27/17 06:31 APTT 32 SECONDS (21-34) 03/26/17 06:03 - Constitutional Appears: Confused, Chronically Ill - Head Exam Head Exam: ATRAUMATIC, NORMAL INSPECTION - Eye Exam Eye Exam: EOMI, Normal appearance - Neck Exam Neck Exam: Normal Inspection. absent: Tenderness - Respiratory Exam Respiratory Exam: Rhonchi, NORMAL BREATHING PATTERN - GI/Abdominal Exam GI & Abdominal Exam: Distended, Soft, Hypoactive Bowel Sounds - Extremities Exam Extremities Exam: Pedal Edema. absent: Tenderness - Neurological Exam Neurological Exam: Alert, CN II-XII Intact - Skin Skin Exam: Dry, Warm Assessment and Plan (1) LETICIA (acute kidney injury) Status: Acute (2) UTI due to extended-spectrum beta lactamase (ESBL) producing Escherichia coli Status: Acute (3) Diabetic peripheral angiopathy Status: Acute (4) CHF (congestive heart failure) Status: Acute (5) CKD (chronic kidney disease) stage 3, GFR 30-59 ml/min Status: Acute - Assessment and Plan (Free Text) Plan: Stop lasix Add bolus IV saline Stop feso4 Add lactulose Repeat chemistries off lasix
--- NOTE | 2017-04-03 11:12 | CP.PCM.PN ---
Subjective - Date & Time of Evaluation Date of Evaluation: 04/03/17 Time of Evaluation: 11:09 - Subjective Subjective: Patient complains of being uncomfortable in bed and unable to feed himself due to edema of both hands. Patient denies abdominal pain, reports passing flatus, denies SOB. Objective - Vital Signs/Intake and Output Vital Signs (last 24 hours): Temp Pulse Resp BP Pulse Ox 97.3 F L 86 21 110/74 96 04/03/17 08:35 04/03/17 09:01 04/03/17 08:35 04/03/17 08:35 04/03/17 08:35 Intake and Output: 04/03/17 04/03/17 06:59 18:59 Output Total 250 Balance -250 - Medications Medications: Current Medications Acetylcysteine (Acetylcysteine 20%) 4 ml INH RQ8 [facility] Last Admin: 04/03/17 07:28 Dose: 4 ml Albuterol/Ipratropium (Duoneb 3 Mg/0.5 Mg (3 Ml) Ud) 3 ml INH RQ6 [facility] Last Admin: 04/03/17 07:27 Dose: 3 ml Cilostazol (Pletal) 100 mg PO BID [facility] Last Admin: 04/02/17 19:02 Dose: 100 mg Collagenase (Santyl) 1 gm TOP DAILY [facility] Last Admin: 04/02/17 12:38 Dose: 1 applic Docusate Sodium (Colace) 100 mg PO DAILY [facility] Last Admin: 04/02/17 12:37 Dose: 100 mg Gabapentin (Neurontin) 100 mg PO BID [facility] Last Admin: 04/02/17 19:02 Dose: 100 mg Guaifenesin (Mucinex La) 600 mg PO BID [facility] Last Admin: 04/02/17 19:02 Dose: 600 mg Heparin Sodium (Porcine) (Heparin) 5,000 units SC Q8 [facility] Last Admin: 04/03/17 05:40 Dose: 5,000 units Fluconazole (Diflucan Iv 200 Mg/100 Ml Ns) 100 mls @ 100 mls/hr IVPB DAILY [facility] Stop: 04/04/17 10:59 Last Admin: 04/02/17 12:38 Dose: 100 mls/hr Imipenem/Cilastatin Sodium 250 (mg/ Sodium Chloride) 100 mls @ 100 mls/hr IVPB Q12 [facility] Insulin Aspart (Novolog) 0 unit SC ACHS [facility] PRN Reason: Protocol Last Admin: 04/02/17 22:50 Dose: Not Given Insulin Glargine (Lantus) 10 unit SC DAILY [facility] Last Admin: 04/02/17 15:15 Dose: 10 u Lactulose (Enulose) 20 gm PO HS [facility] Mupirocin (Bactroban Ointment) 0 gm TOP BID [facility] Last Admin: 04/02/17 19:02 Dose: 1 applic Pantoprazole Sodium (Protonix Ec Tab) 40 mg PO DAILY [facility] Last Admin: 04/02/17 12:37 Dose: 40 mg Polyethylene Glycol (Miralax) 17 gm PO BID [facility] Last Admin: 04/02/17 19:02 Dose: 17 gm Promethazine HCl/Codeine (Phenergan/Codeine Oral Syrup) 5 ml PO Q4 PRN PRN Reason: Cough Last Admin: 03/30/17 17:12 Dose: 5 ml Fluticasone/Salmeterol (Advair Diskus 100/50) 1 puff IH RQD [facility] Last Admin: 04/03/17 07:28 Dose: 1 puff - Labs Labs: 04/03/17 07:26 04/03/17 07:26 PT 15.4 SECONDS (9.7-12.2) H 03/27/17 06:31 INR 1.4 03/27/17 06:31 APTT 32 SECONDS (21-34) 03/26/17 06:03 - Constitutional Appears: Chronically Ill - Head Exam Head Exam: ATRAUMATIC, NORMAL INSPECTION, NORMOCEPHALIC - Eye Exam Eye Exam: EOMI, Normal appearance, PERRL Pupil Exam: NORMAL ACCOMODATION, PERRL - ENT Exam ENT Exam: Mucous Membranes Moist, Normal Exam - Neck Exam Neck Exam: Normal Inspection - Respiratory Exam Respiratory Exam: Decreased Breath Sounds, Rhonchi, NORMAL BREATHING PATTERN - Cardiovascular Exam Cardiovascular Exam: Tachycardia, REGULAR RHYTHM, +S1, +S2 - GI/Abdominal Exam GI & Abdominal Exam: Distended, Firm, Diminished Bowel Sounds - Rectal Exam Rectal Exam: Deferred - Exam Exam: NORMAL INSPECTION - Extremities Exam Extremities Exam: Normal Inspection, Pedal Edema - Back Exam Back Exam: NORMAL INSPECTION - Neurological Exam Neurological Exam: Alert, Awake, Oriented x3 Neuro motor strength exam: Left Upper Extremity: 2/1, Right Upper Extremity: 2/1 , Left Lower Extremity: 2/, Right Lower Extremity: 2 - Psychiatric Exam Psychiatric exam: Normal Affect, Normal Mood - Skin Skin Exam: Mottled, Pallor Assessment and Plan - Assessment and Plan (Free Text) Assessment: Patient examined in bed. Patient looks more sick than he was the last time I saw him, about one week ago.Alert, oriented X3. Speech clear, speaks in short sentences. Skin looks pale, Hb 9.1. Breathing is congested. SOB at rest with minimal excertion. Abdomen firm and distended, bowel sounds distant, patient believes is passing gas. Abdominal X Ray negative SBO.Appetite is poor. Patient was fed by the aide. B/L arms, hands and LEs are with edema. Limited ability to reposition in bed. It took two of us to reposition patient to a comfort position. BUN 75, Sales Developer 2.3, Alb 2.8.urine output WNL. BP 110/74, HR92. With his of 26 years, Marta, at bed side goals of care and Code status discussed. Patient admits being tired of this prolonged hospitalization and wishes he could return home soon.Patient seems to have very poor inside of his medical problems. Patient dismiss all concerns regarding his very complex medical status. Code status discussed. Again, patient does not believe anything can happen to him. We discussed quality of life concerns in case his breathing gets heavier and he may need the assistance from the MV. patient and his were very clear that they would want ALL measures to be used to support life. Patient appointed his Marta to be his surrogate decision maker in case he loses ability to advocate for him self. Impression * This is a chronically ill man with complex medical Hx. * Patient has poor insight of his medical problems * Acute renal injury * Edema of upper and lower extremities, most likely due to combination of poor renal functions, low albumin and poor perfusion * At risk for pressure sores, due to prolonged bed rest and poor perfusion * Limited mobility * Shortness of breath * Needs max to moderate assistance with ADLs * Patient and his prefer Full Code including all aggressive measures to support life * Patient wishes his Marta takes over decision making if he loses ability to do so Suggestion * Would refer to renal consult * Promote skin integrity * Assist with feedings * FULL CODE
[2017-04-03] MEDS: Cilostazol 100 mg Tab UD PO SCH ×3 (12:09→18:17)
[2017-04-03] MEDS: guaiFENesin 600 mg ER Tab PO SCH ×2 (12:09→17:53)
[2017-04-03] MEDS: Magnesium Hydroxide Susp 30 ml UD PO ONE ×2 (12:09→12:14)
[2017-04-03] MEDS: Pantoprazole 40 mg EC Tab PO SCH (12:09)
[2017-04-03] MEDS: POLYETHYLENE GLYCOL 3350 17 GM/Dose PACKET PO SCH ×2 (12:09→18:01)
[2017-04-03] MEDS: Fluconazole IV 200mg/100 ml NS 100 ML IVPB SCH (12:10)
[2017-04-03] MEDS: (Lantus) Insulin Glargine, Recombinant SC SCH (12:11)
[2017-04-03] MEDS: Collagenase 250 Units/gm Ointment(30 gm) TOP SCH (12:12)
[2017-04-03] MEDS: Sodium Chloride 0.9% 1,000 ML IV SCH (12:12)
--- NOTE | 2017-04-03 14:14 | RAD ---
PROCEDURE: Radiographs of the chest and abdomen (obstructive series) HISTORY: re-eval for SBO vs constipation COMPARISON: 04/02/2017 TECHNIQUE: AP radiograph of the chest, with upright and supine radiographs of the abdomen. FINDINGS: CHEST: Lungs: Interval right upper lobe low-density consolidation consistent with infiltrate noted. Cardiovascular: Mild cardiomegaly. Pulmonary vascular congestion slightly increased. Sternotomy wires as before Pleura: Small right pleural effusion layering right inferolateral hemithorax will change Other findings: None. ABDOMEN AND PELVIS: Bowel: Moderate stool retention hepatic flexure suggested. Most of the gas-filled loops are small bowel related. Minimal rectosigmoid colonic gas present. The small bowel loops are mixed in character some are normal caliber some are borderline increased up to 4 mm. No complete or high-grade small-bowel obstruction suggested. However an intermittent or mild partial small bowel obstruction is not excluded. Continued surveillance recommended Free air: None. Bones: Bilateral hip osteoarthrosis lumbar spondylosis. Other findings: Right upper quadrant stones and splenic artery calcifications are noted. Possible neeraj bullets fills near the GE junction upper stomach IMPRESSION: No complete or high-grade bowel obstruction suspect. The small bowel loops are mixed in character -some are normal caliber some are borderline increased up to 4 mm. No complete or high-grade small-bowel obstruction suggested. However an intermittent or mild partial small bowel obstruction is not excluded. Continued surveillance recommended Right colonic -hepatic flexure -moderate stool retention. . Other findings as above
--- NOTE | 2017-04-03 17:16 | CP.PCM.PN ---
Objective - Vital Signs/Intake and Output Vital Signs (last 24 hours): Temp Pulse Resp BP Pulse Ox 98.7 F 95 H 20 99/68 L 96 04/03/17 15:00 04/03/17 15:00 04/03/17 15:00 04/03/17 15:00 04/03/17 15:00 Intake and Output: 04/03/17 04/03/17 06:59 18:59 Output Total 250 Balance -250 - Medications Medications: Current Medications Acetylcysteine (Acetylcysteine 20%) 4 ml INH RQ8 [facility] Last Admin: 04/03/17 16:22 Dose: 4 ml Albuterol/Ipratropium (Duoneb 3 Mg/0.5 Mg (3 Ml) Ud) 3 ml INH RQ6 [facility] Last Admin: 04/03/17 13:29 Dose: 3 ml Cilostazol (Pletal) 100 mg PO BID [facility] Last Admin: 04/03/17 12:12 Dose: 100 mg Collagenase (Santyl) 1 gm TOP DAILY [facility] Last Admin: 04/03/17 12:12 Dose: 1 applic Docusate Sodium (Colace) 100 mg PO DAILY [facility] Last Admin: 04/03/17 12:09 Dose: 100 mg Gabapentin (Neurontin) 100 mg PO BID [facility] Last Admin: 04/03/17 12:11 Dose: 100 mg Guaifenesin (Mucinex La) 600 mg PO BID [facility] Last Admin: 04/03/17 12:09 Dose: 600 mg Heparin Sodium (Porcine) (Heparin) 5,000 units SC Q8 [facility] Last Admin: 04/03/17 14:41 Dose: 5,000 units Fluconazole (Diflucan Iv 200 Mg/100 Ml Ns) 100 mls @ 100 mls/hr IVPB DAILY [facility] Stop: 04/04/17 10:59 Last Admin: 04/03/17 12:10 Dose: 100 mls/hr Imipenem/Cilastatin Sodium 250 (mg/ Sodium Chloride) 100 mls @ 100 mls/hr IVPB Q12 [facility] Sodium Chloride (Sodium Chloride 0.9%) 1,000 mls @ 42 mls/hr IV .[id number] [facility] Stop: 04/04/17 11:15 Last Admin: 04/03/17 12:12 Dose: 42 mls/hr Insulin Aspart (Novolog) 0 unit SC ACHS [facility] PRN Reason: Protocol Last Admin: 04/03/17 12:13 Dose: Not Given Insulin Glargine (Lantus) 10 unit SC DAILY [facility] Last Admin: 04/03/17 12:11 Dose: 10 u Lactulose (Enulose) 20 gm PO HS [facility] Metoclopramide HCl (Reglan) 10 mg IVP Q6H [facility] Stop: 04/04/17 10:31 Mupirocin (Bactroban Ointment) 0 gm TOP BID [facility] Last Admin: 04/03/17 12:09 Dose: 1 applic Pantoprazole Sodium (Protonix Ec Tab) 40 mg PO DAILY [facility] Last Admin: 04/03/17 12:09 Dose: 40 mg Polyethylene Glycol (Miralax) 17 gm PO BID [facility] Last Admin: 04/03/17 12:09 Dose: 17 gm Promethazine HCl/Codeine (Phenergan/Codeine Oral Syrup) 5 ml PO Q4 PRN PRN Reason: Cough Last Admin: 03/30/17 17:12 Dose: 5 ml Fluticasone/Salmeterol (Advair Diskus 100/50) 1 puff IH RQD [facility] Last Admin: 04/03/17 07:28 Dose: 1 puff - Labs Labs: 04/03/17 07:26 04/03/17 07:26 PT 15.4 SECONDS (9.7-12.2) H 03/27/17 06:31 INR 1.4 03/27/17 06:31 APTT 32 SECONDS (21-34) 03/26/17 06:03 Assessment and Plan (1) Cough Status: Acute (2) Acute exacerbation of CHF (congestive heart failure) Status: Acute (3) A-fib Status: Acute (4) GI bleed Status: Acute
--- NOTE | 2017-04-03 21:25 | CP.PCM.PN ---
<Nasrin Guzman - Last Filed: 04/03/17 21:21> Subjective - Date & Time of Evaluation Date of Evaluation: 04/03/17 Time of Evaluation: 21:21 - Subjective Subjective: Medicine Progress Note- Dr. Leonard Service Patient was seen and examined at bedside in no acute distress. Patient is oriented to person and place but not time. He states he still has shortness of breath that is worse with laying down. Patient reports not having a bowel movement. Patient denies having chest pain, palpitations, abdominal pain, nausea , vomiting, and dizziness. Objective - Vital Signs/Intake and Output Vital Signs (last 24 hours): Temp Pulse Resp BP Pulse Ox 98.7 F 92 H 20 99/68 L 96 04/03/17 15:00 04/03/17 20:36 04/03/17 15:00 04/03/17 15:00 04/03/17 15:00 - Medications Medications: Current Medications Acetylcysteine (Acetylcysteine 20%) 4 ml INH RQ8 [facility] Last Admin: 04/03/17 16:22 Dose: 4 ml Albuterol/Ipratropium (Duoneb 3 Mg/0.5 Mg (3 Ml) Ud) 3 ml INH RQ6 [facility] Last Admin: 04/03/17 13:29 Dose: 3 ml Cilostazol (Pletal) 100 mg PO BID [facility] Last Admin: 04/03/17 18:17 Dose: 100 mg Collagenase (Santyl) 1 gm TOP DAILY [facility] Last Admin: 04/03/17 12:12 Dose: 1 applic Docusate Sodium (Colace) 100 mg PO DAILY [facility] Last Admin: 04/03/17 12:09 Dose: 100 mg Gabapentin (Neurontin) 100 mg PO BID [facility] Last Admin: 04/03/17 17:53 Dose: 100 mg Guaifenesin (Mucinex La) 600 mg PO BID [facility] Last Admin: 04/03/17 17:53 Dose: 600 mg Heparin Sodium (Porcine) (Heparin) 5,000 units SC Q8 [facility] Last Admin: 04/03/17 14:41 Dose: 5,000 units Fluconazole (Diflucan Iv 200 Mg/100 Ml Ns) 100 mls @ 100 mls/hr IVPB DAILY [facility] Stop: 04/04/17 10:59 Last Admin: 04/03/17 12:10 Dose: 100 mls/hr Imipenem/Cilastatin Sodium 250 (mg/ Sodium Chloride) 100 mls @ 100 mls/hr IVPB Q12 [facility] Sodium Chloride (Sodium Chloride 0.9%) 1,000 mls @ 42 mls/hr IV .[id number] [facility] Stop: 04/04/17 11:15 Last Admin: 04/03/17 12:12 Dose: 42 mls/hr Insulin Aspart (Novolog) 0 unit SC ACHS [facility] PRN Reason: Protocol Last Admin: 04/03/17 17:10 Dose: 2 unit Insulin Glargine (Lantus) 10 unit SC DAILY [facility] Last Admin: 04/03/17 12:11 Dose: 10 u Lactulose (Enulose) 20 gm PO HS [facility] Metoclopramide HCl (Reglan) 10 mg IVP Q6H [facility] Stop: 04/04/17 10:31 Last Admin: 04/03/17 17:10 Dose: 10 mg Mupirocin (Bactroban Ointment) 0 gm TOP BID [facility] Last Admin: 04/03/17 18:02 Dose: 1 applic Pantoprazole Sodium (Protonix Ec Tab) 40 mg PO DAILY [facility] Last Admin: 04/03/17 12:09 Dose: 40 mg Polyethylene Glycol (Miralax) 17 gm PO BID [facility] Last Admin: 04/03/17 18:01 Dose: 17 gm Promethazine HCl/Codeine (Phenergan/Codeine Oral Syrup) 5 ml PO Q4 PRN PRN Reason: Cough Last Admin: 03/30/17 17:12 Dose: 5 ml Fluticasone/Salmeterol (Advair Diskus 100/50) 1 puff IH RQD [facility] Last Admin: 04/03/17 07:28 Dose: 1 puff - Labs Labs: 04/03/17 07:26 04/03/17 07:26 PT 15.4 SECONDS (9.7-12.2) H 03/27/17 06:31 INR 1.4 03/27/17 06:31 APTT 32 SECONDS (21-34) 03/26/17 06:03 - Constitutional Appears: No Acute Distress - Head Exam Head Exam: NORMAL INSPECTION, NORMOCEPHALIC - Eye Exam Eye Exam: EOMI, Normal appearance - ENT Exam ENT Exam: Mucous Membranes Moist - Neck Exam Neck Exam: Normal Inspection - Respiratory Exam Respiratory Exam: Decreased Breath Sounds, Rhonchi, Wheezes, NORMAL BREATHING PATTERN. absent: Clear to Ausculation Bilateral - Cardiovascular Exam Cardiovascular Exam: +S1, +S2, Murmur. absent: REGULAR RHYTHM - GI/Abdominal Exam GI & Abdominal Exam: Distended, Normal Bowel Sounds - Exam Exam: Scrotal Swelling - Extremities Exam Extremities Exam: Pedal Edema. absent: Calf Tenderness - Neurological Exam Neurological Exam: Alert, Awake. absent: Oriented x3 - Psychiatric Exam Psychiatric exam: Normal Affect, Normal Mood - Skin Skin Exam: Dry, Intact, Normal Color, Warm Assessment and Plan (1) Acute exacerbation of CHF (congestive heart failure) Assessment & Plan: Consult: Dr. Canales (Cardiology) on board-->help appreciated * Patient is not a candidate for valve replacement Echocardiogram (03/21/17): left ventricle systolic function is severely impaired , EF: 25%, septal motion consistent with post operative state. Global hypokinesis of the left ventricle. Grade II-pseudonormal filling. Severe valvular aortic stenosis. Mitral regurgitation is moderate. Severe pulmonary hypertension Per cardiology, patient is not a surgical candidate for aortic stenosis Amiodarone 200mg PO daily Lasix 40mg IVP Daily- held as per Dr. Tomlin Chest X-ray (03/27/17): Bilateral perihilar opacity, left greater than right. Congestive change. No pleural effusion. Nonspecific finding. Possible congestive heart failure/pulmonary edema. Rule out pneumonia. Pillow to elevate scrotum ordered 03/31/[address] 04/02/17- small b/l pleural effusions and associated compressive consolidations; perihilar infiltrates. cardiomegaly; valvular and coronary artery calcifications; diffuse ascites Monitor daily weights Status: Acute (2) Anemia Assessment & Plan: Acute anemia, likely due to acute blood loss Stable H/H (04/03) 9.1/28; (04/02) 8.7/27.5; (04/01) 8.8/27.2; (03/31) 9.4/29.8; (03/28): 9.6/ 29.3; H/H (03/27): 9.6/30.2; H/H (03/26): 8.2/25.9 Iron: 36, TIBC: 285, %14, Ferritin: 48.5 Endoscopy (03/21): monillial esophagitis. Cells for cytology obtained. Erosive gastropahty. Normal examined duodenum-->negative cytology cells Patient has had 3 units of PRBC transfused during hospitalization Consult: Dr. Ag (GI) on board-->help appreciated CT Abd/pelvis: no evidence of intraperitoneal hemorrhage or retroperitoneal hemorrhage Ferrous sulfate 325mg PO BID Ascites fluid cx: no growth Status: Chronic (3) Ascites Assessment & Plan: Possibly secondary to CHF and Acute Kidney Injury Intervential Radiology Consult, Dr. Franco Skaggs --> Help Appreciated Paracentesis performed 03/27/17: removed 2L of dark yellow fluid; Per Dr. Ag's note the total PMN count on the fluid was 216, which is below the threshold for SBP (Must be below 250). - LDH of peritoneal fluid 82 - Glucose of peritoneal fluid 124 - Albumin of peritoneal fluid 1.4 - Peritoneal Fluid: Clear; WBC- 309, RBS 1225, Total Cell Count-100, Neutrophil-70, Lymphocyte-25, Monocyte/Macrophage-5 - Fluid culture/smear of peritoneal fluid- no growth detected Status: Acute (4) UTI (urinary tract infection) Assessment & Plan: Continue 04/03/17- Primaxin 250mg IV Q12 Urine culture (03/20/17): +ESBL Repeat Urine Culture (03/27/17)- No growth Status: Acute (5) A-fib Assessment & Plan: Amiodarone 200mg PO daily Patient is off Xarelto secondary to GI workup r/o bleed Status: Acute (6) Cough Assessment & Plan: Acute on chronic cough, acute bronchitis, suspected pneumonia Started Phenergan/Codeine oral syrup 5ml PO Q4 PRN Sputum Culture: Few polymorphonuclear WBS, few epithelial cells, no organisms seen. Status: Acute (7) LETICIA (acute kidney injury) Assessment & Plan: Consult: Dr. Reynolds (nephrology) on board-->help appreciated BUN 62, Cr 1.7 on 03/31/17 BUN 65, Cr 2 on 04/01/17 BUN 60, Cr 2.2 on 04/02/17 BUN 75, Cr 2.3 on 04/03/17 Off Nadir/arb/statin Status: Acute (8) HTN (hypertension) Assessment & Plan: Patient is borderline hypotensive. 114/76 on 04/03/17 Status: Acute (9) Hx of CABG Assessment & Plan: Continue medical management as per cardiology. Status: Acute (10) Diabetes Assessment & Plan: Hgba1c: 7.2 Lantus 10 units subq daily Status: Chronic (11) Hyperlipidemia Assessment & Plan: Discontinued statin Status: Chronic (12) Peripheral vascular disease Assessment & Plan: Patient is on Pletal 100mg PO BID Status: Chronic (13) Esophageal candidiasis Assessment & Plan: On Diflucan 200mg IV q daily (active since 03/22/17); 2 more doses (04/03/17) Status: Acute (14) Constipation Assessment & Plan: Constipated for 7+ days Dulcolax 5mg PO once on 03/31/17 Abdominal xray: gas distension of stomach and small bowel loops, may be ileus or obstruction Surgery consulted, Dr. Lara, help appreciated As per surgery, no surgery at this time; recommend CT w/PO contrast, tap water enema, PT, and activity. Tap water enema on 04/01/17- as per the nurse, only liquids and sediment was observed. Tap water enema ordered on 04/02/17- liquid was not retained and no stool was observed. Abdominal obstructive series 04/02/17: no obstruction, no infiltrate; retained feces. Abdominal obstructive series 04/03/17: no complete of high-grade bowel obstruction suspected; intermittent or mild partial small bowel obstruction is not excluded. right colonic-hepatic flexure: moderate stool retention. As per surgery, Milk of magnesia was order on 04/03/17 Monitor for bowel movement Status: Acute (15) Prophylactic measure Assessment & Plan: Protonix 40mg PO daily Heparin 5000 units subq 12 hours PT/OT evaluation Palliative Care Consult placed on 03/27/17 Status: Acute <Noemí Leonard V - Last Filed: 04/06/17 20:30> Objective - Vital Signs/Intake and Output Vital Signs (last 24 hours): Temp Pulse Resp BP Pulse Ox 95.8 F L 84 13 95/59 L 100 04/06/17 16:00 04/06/17 19:17 04/06/17 19:17 04/06/17 19:17 04/06/17 19:17 Intake and Output: 04/06/17 04/07/17 18:59 06:59 Intake Total 1831.3 188.4 Output Total 1325 50 Balance 506.3 138.4 - Medications Medications: Current Medications Acetylcysteine (Acetylcysteine 20%) 4 ml INH RQ8 [facility] Last Admin: 04/06/17 07:36 Dose: 4 ml Albuterol/Ipratropium (Duoneb 3 Mg/0.5 Mg (3 Ml) Ud) 3 ml INH RQ6 [facility] Last Admin: 04/06/17 13:22 Dose: Not Given Cilostazol (Pletal) 100 mg PO BID [facility] Last Admin: 04/06/17 17:54 Dose: 100 mg Collagenase (Santyl) 1 gm TOP DAILY [facility] Last Admin: 04/06/17 09:40 Dose: 1 applic Famotidine (Pepcid) 20 mg PO DAILY [facility] Last Admin: 04/06/17 09:32 Dose: 20 mg Heparin Sodium (Porcine) (Heparin) 5,000 units SC Q8 [facility] Last Admin: 04/06/17 13:20 Dose: 5,000 units Imipenem/Cilastatin Sodium 250 (mg/ Sodium Chloride) 100 mls @ 100 mls/hr IVPB Q12 [facility] Last Admin: 04/06/17 09:26 Dose: 100 mls/hr Dexmedetomidine HCl 200 mcg/ (Sodium Chloride) 50 mls @ 4.37 mls/hr IV TITR PRN ; Protocol; 0.2 MCG/KG/HR PRN Reason: Sedation Last Admin: 04/06/17 14:06 Dose: 0.3 mcg/kg/hr, 6.56 mls/hr Dextrose (Dextrose 10% In Water) 500 mls @ 40 mls/hr IV .[id number] [facility] Last Admin: 04/06/17 18:07 Dose: Not Given Norepinephrine Bitartrate 8 mg (/ Dextrose) 258 mls @ 7.74 mls/hr IV .Q24H PRN ; Protocol; 4 MCG/MIN PRN Reason: TITRATE PER MD ORDER Last Titration: 04/06/17 20:00 Dose: 15 mcg/min, 29.02 mls/hr Insulin Aspart (Novolog) 0 unit SC Q6H [facility] PRN Reason: Protocol Last Admin: 04/06/17 18:29 Dose: Not Given Mupirocin (Bactroban Ointment) 0 gm TOP BID [facility] Last Admin: 04/06/17 17:54 Dose: 1 applic Fluticasone/Salmeterol (Advair Diskus 100/50) 1 puff IH RQD [facility] Last Admin: 04/06/17 07:34 Dose: Not Given - Labs Labs: 04/05/17 06:46 04/05/17 06:46 PT 15.4 SECONDS (9.7-12.2) H 03/27/17 06:31 INR 1.4 03/27/17 06:31 APTT 32 SECONDS (21-34) 03/26/17 06:03 Assessment and Plan (1) Acute respiratory failure Status: Acute (2) Cardiac arrest Status: Acute (3) Acute exacerbation of CHF (congestive heart failure) Status: Acute (4) Acute renal insufficiency Status: Acute (5) Pneumonia Status: Acute (6) Severe aortic stenosis Status: Chronic (7) Candidiasis of esophagus Status: Acute (8) Esophageal candidiasis Status: Chronic (9) Ileus Status: Resolved (10) Peripheral vascular disease Status: Chronic (11) Anemia Status: Acute (12) Ascites Status: Acute (13) Anemia Status: Chronic (14) Prophylactic measure Status: Acute Attending/Attestation - Attestation I have personally seen and examined this patient.: Yes I have fully participated in the care of the patient.: Yes I have reviewed all pertinent clinical information, including history, physical exam and plan: Yes Notes (Text): This is a late computer entry for 04/03/17. Patient seen, examined, and case discussed with day-time resident. Agree with assessment and plan as indicated by the resident. Assessment/Plan (1) Acute exacerbation of Systolic CHF (congestive heart failure); EF: 25% (2) Anemia, r/o GI cause for acute blood loss (3) Ascites like secondary to congestive heart failure (4) + ESBL UTI (urinary tract infection) on IV Abx (5) A-fibrillation on Amiodarone (6) Cough contributing pneumonia and congestive heart failure (7) LETICIA (acute kidney injury) (8) History of HTN (hypertension) off BP meds given borderline hypotensive (9) Hx of CABG (10) Diabetes (11) Hyperlipidemia (12) Peripheral vascular disease (13) Esophageal candidiasis, on IV antifungal (14) Constipation, undergoing workup with surgery (15) Prophylactic measure
[2017-04-04] MEDS: Acetylcysteine 20% Inhal Soln (4ml) INH SCH ×3 (01:38→19:41)
[2017-04-04] MEDS: Albuterol-Ipratrop 3 mg / 0.5 (3 ml) UD INH SCH ×3 (01:38→19:40)
[2017-04-04] MEDS: (Novolog) Insulin Aspart, Recombinant 100 u/ml 10 ml vial SC SCH ×4 (07:48→17:38)
--- NOTE | 2017-04-04 08:29 | CP.PCM.PN ---
Subjective - Date & Time of Evaluation Date of Evaluation: 04/04/17 Time of Evaluation: 08:10 - Subjective Subjective: clinically unchanged. Objective - Vital Signs/Intake and Output Vital Signs (last 24 hours): Temp Pulse Resp BP Pulse Ox 97.7 F 86 20 104/69 97 04/04/17 07:05 04/04/17 07:05 04/04/17 07:05 04/04/17 07:05 04/04/17 07:05 Intake and Output: 04/04/17 04/04/17 06:59 18:59 Intake Total 386 Output Total 150 Balance 236 - Medications Medications: Current Medications Acetylcysteine (Acetylcysteine 20%) 4 ml INH RQ8 [facility] Last Admin: 04/04/17 07:23 Dose: 4 ml Albuterol/Ipratropium (Duoneb 3 Mg/0.5 Mg (3 Ml) Ud) 3 ml INH RQ6 [facility] Last Admin: 04/04/17 07:23 Dose: 3 ml Cilostazol (Pletal) 100 mg PO BID [facility] Last Admin: 04/03/17 18:17 Dose: 100 mg Collagenase (Santyl) 1 gm TOP DAILY [facility] Last Admin: 04/03/17 12:12 Dose: 1 applic Docusate Sodium (Colace) 100 mg PO DAILY [facility] Last Admin: 04/03/17 12:09 Dose: 100 mg Gabapentin (Neurontin) 100 mg PO BID [facility] Last Admin: 04/03/17 17:53 Dose: 100 mg Guaifenesin (Mucinex La) 600 mg PO BID [facility] Last Admin: 04/03/17 17:53 Dose: 600 mg Heparin Sodium (Porcine) (Heparin) 5,000 units SC Q8 [facility] Last Admin: 04/04/17 05:41 Dose: 5,000 units Fluconazole (Diflucan Iv 200 Mg/100 Ml Ns) 100 mls @ 100 mls/hr IVPB DAILY [facility] Stop: 04/04/17 10:59 Last Admin: 04/03/17 12:10 Dose: 100 mls/hr Imipenem/Cilastatin Sodium 250 (mg/ Sodium Chloride) 100 mls @ 100 mls/hr IVPB Q12 [facility] Last Admin: 04/03/17 21:27 Dose: 100 mls/hr Sodium Chloride (Sodium Chloride 0.9%) 1,000 mls @ 42 mls/hr IV .[id number] [facility] Stop: 04/04/17 11:15 Last Admin: 04/03/17 12:12 Dose: 42 mls/hr Insulin Aspart (Novolog) 0 unit SC ACHS [facility] PRN Reason: Protocol Last Admin: 04/04/17 07:48 Dose: Not Given Insulin Glargine (Lantus) 10 unit SC DAILY [facility] Last Admin: 04/03/17 12:11 Dose: 10 u Lactulose (Enulose) 20 gm PO HS [facility] Last Admin: 04/03/17 21:32 Dose: 20 gm Metoclopramide HCl (Reglan) 10 mg IVP Q6H [facility] Stop: 04/04/17 10:31 Last Admin: 04/04/17 05:42 Dose: 10 mg Mupirocin (Bactroban Ointment) 0 gm TOP BID [facility] Last Admin: 04/03/17 18:02 Dose: 1 applic Pantoprazole Sodium (Protonix Ec Tab) 40 mg PO DAILY [facility] Last Admin: 04/03/17 12:09 Dose: 40 mg Polyethylene Glycol (Miralax) 17 gm PO BID [facility] Last Admin: 04/03/17 18:01 Dose: 17 gm Promethazine HCl/Codeine (Phenergan/Codeine Oral Syrup) 5 ml PO Q4 PRN PRN Reason: Cough Last Admin: 03/30/17 17:12 Dose: 5 ml Fluticasone/Salmeterol (Advair Diskus 100/50) 1 puff IH RQD [facility] Last Admin: 04/03/17 07:28 Dose: 1 puff - Labs Labs: 04/03/17 07:26 04/03/17 07:26 PT 15.4 SECONDS (9.7-12.2) H 03/27/17 06:31 INR 1.4 03/27/17 06:31 APTT 32 SECONDS (21-34) 03/26/17 06:03 - Constitutional Appears: Chronically Ill - Head Exam Head Exam: NORMAL INSPECTION - Eye Exam Eye Exam: Normal appearance - ENT Exam ENT Exam: Mucous Membranes Dry - Neck Exam Neck Exam: absent: Thyromegaly - Respiratory Exam Respiratory Exam: Decreased Breath Sounds - Cardiovascular Exam Cardiovascular Exam: Irregular Rhythm - GI/Abdominal Exam GI & Abdominal Exam: Normal Bowel Sounds - Rectal Exam Rectal Exam: Deferred - Extremities Exam Extremities Exam: Pedal Edema - Back Exam Back Exam: NORMAL INSPECTION - Neurological Exam Neurological Exam: Awake - Psychiatric Exam Psychiatric exam: Normal Affect - Skin Skin Exam: Normal Color Assessment and Plan (1) Acute exacerbation of CHF (congestive heart failure) Assessment & Plan: clinically unchanged. multifactorial due to severe , severe cardiomyopathy Status: Acute (2) Anemia Status: Acute (3) A-fib Assessment & Plan: rate control. no anticoagulation Status: Acute (4) Aortic stenosis Assessment & Plan: severe. not surgical candidate. Status: Acute
[2017-04-04 08:43] LABS: BASO % 0.8 % (0.0-2.0); EOS % 0.5 % (0.0-4.0); HEMOGLOBIN 8.8 g/dL (12.0-18.0); LYMPH # 0.8 K/uL (1.0-4.3); LYMPH % 12.9 % (20.0-40.0); MEAN CELL VOLUME 84.6 fL (80.0-94.0); MEAN CORPUSCULAR HEMOGLOBIN 27.7 pg (27.0-31.0); MEAN CORPUSCULAR HGB CONC 32.8 g/dL (33.0-37.0); MEAN PLATELET VOLUME 8.7 fL (7.2-11.7); MONO # 0.3 K/uL (0.0-0.8); MONO % 5.7 % (0.0-10.0); NEUT # 4.9 K/uL (1.8-7.0); NEUT % 80.1 % (50.0-75.0); RBC 3.17 Mil/uL (4.40-5.90); RED CELL DISTRIBUTION WIDTH 18.4 % (11.5-14.5); WHITE BLOOD COUNT 6.1 K/uL (4.8-10.8)
[2017-04-04 09:09] LABS: ALBUMIN 2.9 g/dL (3.5-5.0)
[2017-04-04 09:13] LABS: ALB/GLOB RATIO 0.7 (1.0-2.1); CALCIUM 8.7 mg/dl (8.6-10.4); MAGNESIUM 2.3 mg/dL (1.6-2.3)
--- NOTE | 2017-04-04 09:23 | CP.PCM.PN ---
Subjective - Date & Time of Evaluation Date of Evaluation: 04/04/17 Time of Evaluation: 07:30 - Subjective Subjective: Patient seen and examined at bedside this AM. NAEO. Patient denies any nausea, vomiting, fevers, chills, or any other symptoms. Patient still has no bowel movement but is passing gas. Tolerating diet Objective - Vital Signs/Intake and Output Vital Signs (last 24 hours): Temp Pulse Resp BP Pulse Ox 97.7 F 86 20 104/69 97 04/04/17 07:05 04/04/17 07:05 04/04/17 07:05 04/04/17 07:05 04/04/17 07:05 Intake and Output: 04/04/17 04/04/17 06:59 18:59 Intake Total 386 Output Total 150 Balance 236 - Medications Medications: Current Medications Acetylcysteine (Acetylcysteine 20%) 4 ml INH RQ8 [facility] Last Admin: 04/04/17 07:23 Dose: 4 ml Albuterol/Ipratropium (Duoneb 3 Mg/0.5 Mg (3 Ml) Ud) 3 ml INH RQ6 [facility] Last Admin: 04/04/17 07:23 Dose: 3 ml Cilostazol (Pletal) 100 mg PO BID [facility] Last Admin: 04/03/17 18:17 Dose: 100 mg Collagenase (Santyl) 1 gm TOP DAILY [facility] Last Admin: 04/03/17 12:12 Dose: 1 applic Docusate Sodium (Colace) 100 mg PO DAILY [facility] Last Admin: 04/03/17 12:09 Dose: 100 mg Gabapentin (Neurontin) 100 mg PO BID [facility] Last Admin: 04/03/17 17:53 Dose: 100 mg Guaifenesin (Mucinex La) 600 mg PO BID [facility] Last Admin: 04/03/17 17:53 Dose: 600 mg Heparin Sodium (Porcine) (Heparin) 5,000 units SC Q8 [facility] Last Admin: 04/04/17 05:41 Dose: 5,000 units Fluconazole (Diflucan Iv 200 Mg/100 Ml Ns) 100 mls @ 100 mls/hr IVPB DAILY [facility] Stop: 04/04/17 10:59 Last Admin: 04/03/17 12:10 Dose: 100 mls/hr Imipenem/Cilastatin Sodium 250 (mg/ Sodium Chloride) 100 mls @ 100 mls/hr IVPB Q12 [facility] Last Admin: 04/03/17 21:27 Dose: 100 mls/hr Sodium Chloride (Sodium Chloride 0.9%) 1,000 mls @ 42 mls/hr IV .[id number] [facility] Stop: 04/04/17 11:15 Last Admin: 04/03/17 12:12 Dose: 42 mls/hr Insulin Aspart (Novolog) 0 unit SC ACHS [facility] PRN Reason: Protocol Last Admin: 04/04/17 07:48 Dose: Not Given Insulin Glargine (Lantus) 10 unit SC DAILY [facility] Last Admin: 04/03/17 12:11 Dose: 10 u Lactulose (Enulose) 20 gm PO HS [facility] Last Admin: 04/03/17 21:32 Dose: 20 gm Magnesium Hydroxide (Milk Of Magnesia) 30 ml PO DAILY [facility] Metoclopramide HCl (Reglan) 10 mg IVP Q6H [facility] Stop: 04/04/17 10:31 Last Admin: 04/04/17 05:42 Dose: 10 mg Mupirocin (Bactroban Ointment) 0 gm TOP BID [facility] Last Admin: 04/03/17 18:02 Dose: 1 applic Pantoprazole Sodium (Protonix Ec Tab) 40 mg PO DAILY [facility] Last Admin: 04/03/17 12:09 Dose: 40 mg Polyethylene Glycol (Miralax) 17 gm PO BID [facility] Last Admin: 04/03/17 18:01 Dose: 17 gm Promethazine HCl/Codeine (Phenergan/Codeine Oral Syrup) 5 ml PO Q4 PRN PRN Reason: Cough Last Admin: 03/30/17 17:12 Dose: 5 ml Fluticasone/Salmeterol (Advair Diskus 100/50) 1 puff IH RQD [facility] Last Admin: 04/03/17 07:28 Dose: 1 puff - Labs Labs: 04/04/17 08:34 04/04/17 08:34 PT 15.4 SECONDS (9.7-12.2) H 03/27/17 06:31 INR 1.4 03/27/17 06:31 APTT 32 SECONDS (21-34) 03/26/17 06:03 - Constitutional Appears: Well, Non-toxic, No Acute Distress - Head Exam Head Exam: ATRAUMATIC, NORMOCEPHALIC - Eye Exam Eye Exam: Normal appearance. absent: Conjunctival injection, Scleral icterus - ENT Exam ENT Exam: Mucous Membranes Moist, Normal Oropharynx - Respiratory Exam Respiratory Exam: NORMAL BREATHING PATTERN. absent: Accessory Muscle Use, Respiratory Distress - Cardiovascular Exam Cardiovascular Exam: RRR - GI/Abdominal Exam GI & Abdominal Exam: Distended (moderate distention), Soft. absent: Tenderness - Extremities Exam Extremities Exam: Pedal Edema. absent: Calf Tenderness, Tenderness Additional comments: BL arm edema - Neurological Exam Neurological Exam: Alert, Awake, Oriented x3 - Psychiatric Exam Psychiatric exam: Normal Affect, Normal Mood - Skin Skin Exam: Dry, Intact, Normal Color, Warm Assessment and Plan - Assessment and Plan (Free Text) Assessment: 71M w/ constipation No BM for 10 days Passing gas, tolerating diet obstructive series yesterday showed no SBO Plan: -Continue Milk of Magnesia, miralax, and enemas -Monitor for BM, nausea, and vomiting -Serial abdominal exams -Further recs per Dr. Marco Serrano, PGY2
[2017-04-04] MEDS ORDERED: Magnesium Hydroxide Susp 30 ml UD PO SCH (10:00)
[2017-04-04] MEDS: (Lantus) Insulin Glargine, Recombinant SC SCH (10:26)
[2017-04-04] MEDS: Pantoprazole 40 mg EC Tab PO SCH (10:26)
[2017-04-04] MEDS: POLYETHYLENE GLYCOL 3350 17 GM/Dose PACKET PO SCH ×2 (10:26→17:25)
[2017-04-04] MEDS: guaiFENesin 600 mg ER Tab PO SCH ×2 (10:28→17:49)
[2017-04-04] MEDS: Cilostazol 100 mg Tab UD PO SCH ×2 (10:28→17:26)
[2017-04-04] MEDS: Collagenase 250 Units/gm Ointment(30 gm) TOP SCH (10:29)
[2017-04-04] MEDS: Fluticasone-Salmeterol 100-50mcg Diskus IH SCH (10:30)
--- NOTE | 2017-04-04 10:48 | CP.CCUPN ---
CCU Objective - Vital Signs / Intake & Output Vital Signs (Last 4 hours): Vital Signs Temp Pulse Resp BP Pulse Ox 04/04/17 07:05 97.7 F 86 20 104/69 97 Intake and Output (Last 8hrs): Intake & Output 04/03/17 04/04/17 04/04/17 22:59 06:59 14:59 Intake Total 386 Output Total 150 Balance 236 Intake: Intake, IV Amount 336 RIGHT ARM PICC 336 Oral 50 Output: Urine 150 Urethral (Flores) 150 - Physical Exam Head: Positive for: Atraumatic, Normocephalic Pupils: Positive for: PERRL Extroacular Muscles: Positive for: EOMI Conjunctiva: Positive for: Normal. Negative for: Injected, Icteric Mouth: Positive for: Moist Mucous Membranes Nose (External): Positive for: Other (NGT in place) Nose (Internal): Positive for: Normal Inspection Neck: Positive for: Normal Range of Motion Respiratory/Chest: Positive for: Rhonchi. Negative for: Clear to Auscultation, Respiratory Distress, Accessory Muscle Use, Wheezes Cardiovascular: Positive for: Murmurs (L sternal border), Normal S1, S2, Irregular Rhythm, Tachycardic. Negative for: Regular Rate and Rhythm Abdomen: Positive for: Normal Bowel Sounds. Negative for: Tenderness, Distention Upper Extremity: Positive for: Normal Inspection, Other (R arm PICC line in place). Negative for: Edema Lower Extremity: Positive for: Edema (+2 to knees b/l L > R), Other (b/l foot dressings c/d/i). Negative for: Normal Inspection Neurological: Positive for: GCS=15, CN II-XII Intact, Speech Normal Skin: Positive for: Warm, Dry, Normal Color Psychiatric: Positive for: Alert, Oriented x 3, Normal Insight, Normal Concentration - Medications Active Medications: Active Medications Generic Name Dose Route Start Last Admin Trade Name Freq PRN Reason Stop Dose Admin Acetylcysteine 4 ml 03/30/17 16:30 04/04/17 07:23 Acetylcysteine 20% INH 4 ml RQ8 A[facility]IS Administration Albuterol/Ipratropium 3 ml 04/01/17 14:00 04/04/17 07:23 Duoneb 3 Mg/0.5 Mg (3 Ml) Ud INH 3 ml RQ6 AWAIS Administration Cilostazol 100 mg 03/18/17 18:00 04/04/17 10:28 Pletal PO 100 mg BID A[facility]IS Administration Collagenase 1 gm 03/21/17 10:00 04/04/17 10:29 Santyl TOP 1 applic DAILY A[facility]IS Administration Docusate Sodium 100 mg 03/25/17 10:00 04/04/17 10:28 Colace PO 100 mg DAILY A[facility] Administration Gabapentin 100 mg 03/18/17 18:00 04/04/17 10:28 Neurontin PO 100 mg BID A[facility] Administration Guaifenesin 600 mg 03/24/17 10:00 04/04/17 10:28 Mucinex La PO 600 mg BID A[facility] Administration Heparin Sodium (Porcine) 5,000 units 04/01/17 06:00 04/04/17 05:41 Heparin SC 5,000 units Q8 A[facility] Administration Fluconazole 100 mls @ 100 mls/hr 03/22/17 10:00 04/03/17 12:10 Diflucan Iv 200 Mg/100 Ml Ns IVPB 04/04/17 10:59 100 mls/hr DAILY [facility] Administration Imipenem/Cilastatin Sodium 250 100 mls @ 100 mls/hr 04/03/17 22:00 04/04/17 10:26 mg/ Sodium Chloride IVPB 100 mls/hr Q12 [facility] Administration Sodium Chloride 1,000 mls @ 42 mls/hr 04/03/17 11:15 04/03/17 12:12 Sodium Chloride 0.9% IV 04/04/17 11:15 42 mls/hr .[id number] [facility] Administration Insulin Aspart 0 unit 03/22/17 11:30 04/04/17 07:48 Novolog SC Not Given ACHS [facility] Protocol Insulin Glargine 10 unit 03/19/17 10:00 04/04/17 10:26 Lantus SC 10 u DAILY [facility] Administration Lactulose 20 gm 04/03/17 22:00 04/03/17 21:32 Enulose PO 20 gm HS A[facility] Administration Magnesium Hydroxide 30 ml 04/04/17 10:00 04/04/17 10:27 Milk Of Magnesia PO 30 ml DAILY [facility] Administration Mupirocin 0 gm 03/18/17 18:00 04/03/17 18:02 Bactroban Ointment TOP 1 applic BID [facility] Administration Pantoprazole Sodium 40 mg 03/23/17 10:00 04/04/17 10:26 Protonix Ec Tab PO 40 mg DAILY [facility] Administration Polyethylene Glycol 17 gm 04/01/17 18:00 04/04/17 10:26 Miralax PO 17 gm BID [facility] Administration Promethazine HCl/Codeine 5 ml 03/27/17 15:19 03/30/17 17:12 Phenergan/Codeine Oral Syrup PO 5 ml Q4 PRN Administration Cough Fluticasone/Salmeterol 1 puff 03/29/17 12:30 04/04/17 10:30 Advair Diskus 100/50 IH 1 puff RQD A[facility]IS Administration - Patient Studies Lab Studies: Lab Studies 04/04/17 04/04/17 04/04/17 Range/Units 08:34 08:34 06:52 WBC 6.1 (4.8-10.8) K/uL RBC 3.17 L (4.40-5.90) Mil/uL Hgb 8.8 L (12.0-18.0) g/dL Hct 26.8 L (35.0-51.0) % MCV 84.6 (80.0-94.0) fL MCH 27.7 (27.0-31.0) pg MCHC 32.8 L (33.0-37.0) g/dL RDW 18.4 H (11.5-14.5) % Plt Count 269 (130-400) K/uL MPV 8.7 (7.2-11.7) fL Neut % (Auto) 80.1 H (50.0-75.0) % Lymph % (Auto) 12.9 L (20.0-40.0) % [place] % (Auto) 5.7 (0.0-10.0) % Eos % (Auto) 0.5 (0.0-4.0) % Baso % (Auto) 0.8 (0.0-2.0) % Neut # 4.9 (1.8-7.0) K/uL Lymph # 0.8 L (1.0-4.3) K/uL [place] # 0.3 (0.0-0.8) K/uL Eos # 0.0 (0.0-0.7) K/uL Baso # 0.0 (0.0-0.2) K/uL Sodium 135 (132-148) mmol/L Potassium 5.3 H (3.6-5.2) mmol/L Chloride 101 (98-107) mmol/L Carbon Dioxide 22 (22-30) mmol/L Anion Gap 17 (10-20) BUN 82 H (9-20) mg/dL Creatinine 2.5 H (0.8-1.5) MG/DL Est GFR ( Amer) 31 Est GFR (Non-Af Amer) 26 POC Glucose (mg/dL) 125 H (65-110) mg/dL Random Glucose 126 H (75-110) mg/dL Calcium 8.7 (8.6-10.4) mg/dl Phosphorus 5.2 H (2.5-4.5) mg/dL Magnesium 2.3 (1.6-2.3) mg/dL Total Bilirubin 1.2 (0.2-1.3) mg/dL AST 27 (17-59) U/L ALT 10 L D (21-72) U/L Alkaline Phosphatase 103 (38-126) U/L Total Protein 6.8 (6.3-8.3) g/dL Albumin 2.9 L (3.5-5.0) g/dL Globulin 3.9 (2.2-3.9) gm/dL Albumin/Globulin Ratio 0.7 L (1.0-2.1) 04/03/17 04/03/17 04/03/17 Range/Units 22:04 17:09 11:45 WBC (4.8-10.8) K/uL RBC (4.40-5.90) Mil/uL Hgb (12.0-18.0) g/dL Hct (35.0-51.0) % MCV (80.0-94.0) fL MCH (27.0-31.0) pg MCHC (33.0-37.0) g/dL RDW (11.5-14.5) % Plt Count (130-400) K/uL MPV (7.2-11.7) fL Neut % (Auto) (50.0-75.0) % Lymph % (Auto) (20.0-40.0) % [place] % (Auto) (0.0-10.0) % Eos % (Auto) (0.0-4.0) % Baso % (Auto) (0.0-2.0) % Neut # (1.8-7.0) K/uL Lymph # (1.0-4.3) K/uL [place] # (0.0-0.8) K/uL Eos # (0.0-0.7) K/uL Baso # (0.0-0.2) K/uL Sodium (132-148) mmol/L Potassium (3.6-5.2) mmol/L Chloride (98-107) mmol/L Carbon Dioxide (22-30) mmol/L Anion Gap (10-20) BUN (9-20) mg/dL Creatinine (0.8-1.5) MG/DL Est GFR ( Amer) Est GFR (Non-Af Amer) POC Glucose (mg/dL) 166 H 153 H 77 (65-110) mg/dL Random Glucose (75-110) mg/dL Calcium (8.6-10.4) mg/dl Phosphorus (2.5-4.5) mg/dL Magnesium (1.6-2.3) mg/dL Total Bilirubin (0.2-1.3) mg/dL AST (17-59) U/L ALT (21-72) U/L Alkaline Phosphatase (38-126) U/L Total Protein (6.3-8.3) g/dL Albumin (3.5-5.0) g/dL Globulin (2.2-3.9) gm/dL Albumin/Globulin Ratio (1.0-2.1) Laboratory Results - last 24 hr 04/03/17 04/03/17 04/03/17 11:45 17:09 22:04 WBC RBC Hgb Hct MCV MCH MCHC RDW Plt Count MPV Neut % (Auto) Lymph % (Auto) [place] % (Auto) Eos % (Auto) Baso % (Auto) Neut # Lymph # [place] # Eos # Baso # Sodium Potassium Chloride Carbon Dioxide Anion Gap BUN Creatinine Est GFR ( Amer) Est GFR (Non-Af Amer) POC Glucose (mg/dL) 77 153 H 166 H Random Glucose Calcium Phosphorus Magnesium Total Bilirubin AST ALT Alkaline Phosphatase Total Protein Albumin Globulin Albumin/Globulin Ratio 04/04/17 04/04/17 04/04/17 06:52 08:34 08:34 WBC 6.1 RBC 3.17 L Hgb 8.8 L Hct 26.8 L MCV 84.6 MCH 27.7 MCHC 32.8 L RDW 18.4 H Plt Count 269 MPV 8.7 Neut % (Auto) 80.1 H Lymph % (Auto) 12.9 L [place] % (Auto) 5.7 Eos % (Auto) 0.5 Baso % (Auto) 0.8 Neut # 4.9 Lymph # 0.8 L [place] # 0.3 Eos # 0.0 Baso # 0.0 Sodium 135 Potassium 5.3 H Chloride 101 Carbon Dioxide 22 Anion Gap 17 BUN 82 H Creatinine 2.5 H Est GFR ( Amer) 31 Est GFR (Non-Af Amer) 26 POC Glucose (mg/dL) 125 H Random Glucose 126 H Calcium 8.7 Phosphorus 5.2 H Magnesium 2.3 Total Bilirubin 1.2 AST 27 ALT 10 L D Alkaline Phosphatase 103 Total Protein 6.8 Albumin 2.9 L Globulin 3.9 Albumin/Globulin Ratio 0.7 L Fingerstick Blood Sugar Results: 161 Critical Care Progress Note - Nutrition Nutrition: Nutrition Category Date Time Status Heart Healthy Diet [DIET] Diets 04/01/17 Dinner Active
--- NOTE | 2017-04-04 11:04 | CP.PCM.PN ---
<Lydia Grullon - Last Filed: 04/04/17 14:48> Subjective - Date & Time of Evaluation Date of Evaluation: 04/04/17 Time of Evaluation: 11:32 - Subjective Subjective: Patient went into respiratory distress on the medical floor. Patient was given epinephrine x3. Compressions were performed for 6 minutes. Patient was intubated and a NG tube was placed. Patient was transferred to the ICU. Objective - Vital Signs/Intake and Output Vital Signs (last 24 hours): Temp Pulse Resp BP Pulse Ox 97.7 F 86 20 104/69 97 04/04/17 07:05 04/04/17 07:05 04/04/17 07:05 04/04/17 07:05 04/04/17 07:05 Intake and Output: 04/04/17 04/04/17 06:59 18:59 Intake Total 386 Output Total 150 Balance 236 - Medications Medications: Current Medications Acetylcysteine (Acetylcysteine 20%) 4 ml INH RQ8 AWAIS Last Admin: 04/04/17 07:23 Dose: 4 ml Albuterol/Ipratropium (Duoneb 3 Mg/0.5 Mg (3 Ml) Ud) 3 ml INH RQ6 [facility]IS Last Admin: 04/04/17 07:23 Dose: 3 ml Cilostazol (Pletal) 100 mg PO BID [facility] Last Admin: 04/04/17 10:28 Dose: 100 mg Collagenase (Santyl) 1 gm TOP DAILY [facility] Last Admin: 04/04/17 10:29 Dose: 1 applic Docusate Sodium (Colace) 100 mg PO DAILY [facility] Last Admin: 04/04/17 10:28 Dose: 100 mg Gabapentin (Neurontin) 100 mg PO BID [facility] Last Admin: 04/04/17 10:28 Dose: 100 mg Guaifenesin (Mucinex La) 600 mg PO BID [facility] Last Admin: 04/04/17 10:28 Dose: 600 mg Heparin Sodium (Porcine) (Heparin) 5,000 units SC Q8 [facility] Last Admin: 04/04/17 05:41 Dose: 5,000 units Imipenem/Cilastatin Sodium 250 (mg/ Sodium Chloride) 100 mls @ 100 mls/hr IVPB Q12 [facility] Last Admin: 04/04/17 10:26 Dose: 100 mls/hr Sodium Chloride (Sodium Chloride 0.9%) 1,000 mls @ 42 mls/hr IV .[id number] [facility] Stop: 04/04/17 11:15 Last Admin: 04/03/17 12:12 Dose: 42 mls/hr Insulin Aspart (Novolog) 0 unit SC ACHS [facility] PRN Reason: Protocol Last Admin: 04/04/17 07:48 Dose: Not Given Insulin Glargine (Lantus) 10 unit SC DAILY [facility] Last Admin: 04/04/17 10:26 Dose: 10 u Lactulose (Enulose) 20 gm PO HS [facility] Last Admin: 04/03/17 21:32 Dose: 20 gm Magnesium Hydroxide (Milk Of Magnesia) 30 ml PO DAILY [facility] Last Admin: 04/04/17 10:27 Dose: 30 ml Mupirocin (Bactroban Ointment) 0 gm TOP BID [facility] Last Admin: 04/03/17 18:02 Dose: 1 applic Pantoprazole Sodium (Protonix Ec Tab) 40 mg PO DAILY [facility] Last Admin: 04/04/17 10:26 Dose: 40 mg Polyethylene Glycol (Miralax) 17 gm PO BID [facility] Last Admin: 04/04/17 10:26 Dose: 17 gm Promethazine HCl/Codeine (Phenergan/Codeine Oral Syrup) 5 ml PO Q4 PRN PRN Reason: Cough Last Admin: 03/30/17 17:12 Dose: 5 ml Fluticasone/Salmeterol (Advair Diskus 100/50) 1 puff IH RQD [facility] Last Admin: 04/04/17 10:30 Dose: 1 puff - Labs Labs: 04/04/17 08:34 04/04/17 08:34 PT 15.4 SECONDS (9.7-12.2) H 03/27/17 06:31 INR 1.4 03/27/17 06:31 APTT 32 SECONDS (21-34) 03/26/17 06:03 - Constitutional Appears: In Acute Distress (patient was intubated.) Assessment and Plan - Assessment and Plan (Free Text) Assessment: 71 M PMHx of CAD, CABG, AFib, DM w/ b/l toe amp, PVD, HTN, chronic anemia admitted for acute on chronic anemia, guaic positive and hypotension. Plan: Neuro: -Intubated and Sedated - Dexmedetomidine 50mls Pulm: - Chest X-ray (03/27/17): Bilateral perihilar opacity, left greater than right. Congestive change. No pleural effusion. Nonspecific finding. Possible congestive - - heart failure/pulmonary edema. Rule out pneumonia. - Pillow to elevate scrotum ordered 03/31/17 - Chest CT 04/02/17- small b/l pleural effusions and associated compressive consolidations; perihilar infiltrates. cardiomegaly; valvular and coronary artery calcifications; diffuse ascites - Acute on chronic cough, acute bronchitis, suspected pneumonia - Started Phenergan/Codeine oral syrup 5ml PO Q4 PRN CV: - Hypotensive - Patient started on Norepinephrine 4mg IV - Consult: Dr. Canales (Cardiology) on board-->help appreciated * Patient is not a candidate for valve replacement -Chronic systolic congestive heart failure (EF 30-35%, last echo 11/22/2016). -repeat Echo: LV systolic function is severely impaired; EF 25-30%; septal motion consistent with postop state; global hypokinesis of LV; transmitral Doppler flow pattern is GRad II pseudonormal filling dynamics; severe valvular ; MR is moderate; severe pulmonary HTN -Amiodarone 200mg PO Daily - Monitor daily weights - History of Atrial Fibrillation - Patient is off Xarelto secondary to GI workup r/o bleed - Off Nadir/arb/statin - Patient is on Pletal 100mg PO BID Heme: - Acute anemia, likely due to acute blood loss - Stable - H/H (04/04): 8.8/26.8; H/H (04/03) 9.1/28; (04/02) 8.7/27.5; (04/01) 8.8/27.2; (03/31) 9.4/29.8; (03/28): 9.6/29.3; H/H (03/27): 9.6/30.2; H/H (03/26): 8.2/25.9 - Iron: 36, TIBC: 285, %14, Ferritin: 48.5 - Patient has had 3 units of PRBC transfused during hospitalization - Ferrous sulfate 325mg PO BID Renal: - Lasix 40mg IVP Daily- held as per Dr. Tomlin - Consult: Dr. Reynolds (nephrology) on board-->help appreciated BUN 82, Cr 2.5 on 04/04/17 BUN 75, Cr 2.3 on 04/03/17 BUN 60, Cr 2.2 on 04/02/17 BUN 65, Cr 2 on 04/01/17 BUN 62, Cr 1.7 on 03/31/17 - Off Nadir/arb/statin Endo: - Hgba1c: 7.2 - Lantus 10 units subq daily GI: - NG tube placed - Endoscopy (03/21): monillial esophagitis. Cells for cytology obtained. Erosive gastropahty. Normal examined duodenum-->negative cytology cells - Consult: Dr. Ag (GI) on board-->help appreciated - CT Abd/pelvis: no evidence of intraperitoneal hemorrhage or retroperitoneal hemorrhage - Ascites fluid cx: no growth - Intervential Radiology Consult, Dr. Franco Skaggs --> Help Appreciated - Paracentesis performed 03/27/17: removed 2L of dark yellow fluid; Per Dr. Ag's note the total PMN count on the fluid was 216, which is below the -- - t Threshold for SBP (Must be below 250). - LDH of peritoneal fluid 82 - Glucose of peritoneal fluid 124 - Albumin of peritoneal fluid 1.4 - Peritoneal Fluid: Clear; WBC- 309, RBS 1225, Total Cell Count-100, Neutrophil-70, Lymphocyte-25, Monocyte/Macrophage-5 - Fluid culture/smear of peritoneal fluid- no growth detected - Constipated for 7+ days - stated in previous note 04/03/17 - Dulcolax 5mg PO once on 03/31/17 - Abdominal xray: gas distension of stomach and small bowel loops, may be ileus or obstruction - Surgery consulted, Dr. Lara, help appreciated - As per surgery, no surgery at this time; recommend CT w/PO contrast, tap water enema, PT, and activity. - Stated in previous note 04/03/17 ID: - Continue 04/03/17- Primaxin 250mg IV Q12 - Urine culture (03/20/17): +ESBL - Repeat Urine Culture (03/27/17)- No growth -Sputum Culture: Few polymorphonuclear WBS, few epithelial cells, no organisms seen. - On Diflucan 200mg IV q daily (active since 03/22/17); 1 more doses (04/04/17) MSK: -Podiatry following DVT proph - SCDs, Heparin 5000u sc q12 GI proph - Protonix 40mg po daily allen for strict I/O's during acute illness Code status - full code Case discussed with Dr. Randy Grullon PGY-1 <Luis Padilla - Last Filed: 04/04/17 16:22> Objective - Vital Signs/Intake and Output Vital Signs (last 24 hours): Temp Pulse Resp BP Pulse Ox 97.3 F L 82 21 87/54 L 98 04/04/17 12:00 04/04/17 15:00 04/04/17 15:00 04/04/17 15:00 04/04/17 15:00 Intake and Output: 04/04/17 04/04/17 06:59 18:59 Intake Total 386 331.7 Output Total 150 200 Balance 236 131.7 - Medications Medications: Current Medications Acetylcysteine (Acetylcysteine 20%) 4 ml INH RQ8 [facility] Last Admin: 04/04/17 07:23 Dose: 4 ml Albuterol/Ipratropium (Duoneb 3 Mg/0.5 Mg (3 Ml) Ud) 3 ml INH RQ6 [facility] Last Admin: 04/04/17 07:23 Dose: 3 ml Cilostazol (Pletal) 100 mg PO BID [facility] Last Admin: 04/04/17 10:28 Dose: 100 mg Collagenase (Santyl) 1 gm TOP DAILY [facility] Last Admin: 04/04/17 10:29 Dose: 1 applic Docusate Sodium (Colace) 100 mg PO DAILY [facility] Last Admin: 04/04/17 10:28 Dose: 100 mg Famotidine (Pepcid) 20 mg IVP DAILY [facility] Gabapentin (Neurontin) 100 mg PO BID [facility] Last Admin: 04/04/17 10:28 Dose: 100 mg Guaifenesin (Mucinex La) 600 mg PO BID [facility] Last Admin: 04/04/17 10:28 Dose: 600 mg Heparin Sodium (Porcine) (Heparin) 5,000 units SC Q8 [facility] Last Admin: 04/04/17 14:47 Dose: 5,000 units Imipenem/Cilastatin Sodium 250 (mg/ Sodium Chloride) 100 mls @ 100 mls/hr IVPB Q12 [facility] Last Admin: 07/07/17 10:26 Dose: 100 mls/hr Dexmedetomidine HCl 200 mcg/ (Sodium Chloride) 50 mls @ 4.37 mls/hr IV TITR PRN ; Protocol; 0.2 MCG/KG/HR PRN Reason: Sedation Last Admin: 04/04/17 11:31 Dose: 0.2 mcg/kg/hr, 4.37 mls/hr Norepinephrine Bitartrate 4 mg (/ Dextrose) 254 mls @ 15.24 mls/hr IV .[id number] PRN; Protocol; 4 MCG/MIN PRN Reason: TITRATE PER MD ORDER Last Titration: 04/04/17 15:30 Dose: 20 mcg/min, 76.2 mls/hr Insulin Aspart (Novolog) 0 unit SC ACHS [facility] PRN Reason: Protocol Last Admin: 04/04/17 11:30 Dose: Not Given Insulin Glargine (Lantus) 10 unit SC DAILY [facility] Last Admin: 04/04/17 10:26 Dose: 10 u Lactulose (Enulose) 20 gm PO HS [facility] Last Admin: 04/03/17 21:32 Dose: 20 gm Magnesium Hydroxide (Milk Of Magnesia) 30 ml PO DAILY [facility] Last Admin: 04/04/17 10:27 Dose: 30 ml Mupirocin (Bactroban Ointment) 0 gm TOP BID [facility] Last Admin: 04/04/17 13:46 Dose: Not Given Polyethylene Glycol (Miralax) 17 gm PO BID [facility] Last Admin: 04/04/17 10:26 Dose: 17 gm Promethazine HCl/Codeine (Phenergan/Codeine Oral Syrup) 5 ml PO Q4 PRN PRN Reason: Cough Last Admin: 03/30/17 17:12 Dose: 5 ml Fluticasone/Salmeterol (Advair Diskus 100/50) 1 puff IH RQD [facility] Last Admin: 04/04/17 10:30 Dose: 1 puff - Labs Labs: 04/04/17 08:34 04/04/17 08:34 PT 15.4 SECONDS (9.7-12.2) H 03/27/17 06:31 INR 1.4 03/27/17 06:31 APTT 32 SECONDS (21-34) 03/26/17 06:03 Assessment and Plan (1) Cough Status: Acute (2) Acute exacerbation of CHF (congestive heart failure) Status: Acute (3) A-fib Status: Acute (4) GI bleed Status: Acute Attending/Attestation - Attestation I have personally seen and examined this patient.: Yes I have fully participated in the care of the patient.: Yes I have reviewed all pertinent clinical information, including history, physical exam and plan: Yes Notes (Text): 04/04/17 16:20 Patient seen and examined Patient status post resuscitation for cardiac arrest, intubated and resuscitated with return of spontaneous circulation Transferred to ICU. On ventilatory support and pressors for hypotension Family signed DNR Copious thick purulent secretions aspirated from the ET tube Continue antibiotics Follow-up culture and sensitivity
[2017-04-04] MEDS: Dexmedetomidine Hydrochloride 200 MCG in Sodium Chloride 0.9% 48 ML IV PRN ×2 (11:31→17:30)
[2017-04-04] MEDS: Sodium Chloride 0.9% 1,000 ML IV SCH ×2 (11:38→16:58)
--- NOTE | 2017-04-04 11:57 | RAD ---
HISTORY: intubation COMPARISON: 03/27/2017. FINDINGS: LUNGS: Improvement in bilateral alveolar infiltrates likely improving pulmonary edema. PLEURA: No significant pleural effusion identified, no pneumothorax apparent. CARDIOVASCULAR: No significant interval change compared to the prior examination(s). OSSEOUS STRUCTURES: No significant abnormalities. VISUALIZED UPPER ABDOMEN: Normal. OTHER FINDINGS: Satisfactory position of support apparatus including endotracheal tube and nasogastric tube. IMPRESSION: Improving pulmonary edema.
[2017-04-04] MEDS: Fluconazole IV 200mg/100 ml NS 100 ML IVPB SCH (12:14)
[2017-04-04 13:02] LABS: ABG ALLEN TEST POS; ARTERIAL BLOOD GAS HCO3 20.3 mmol/L (21-28); ARTERIAL BLOOD GAS O2 SAT 99.5 % (95-98); ARTERIAL BLOOD GAS PCO2 34 mm/Hg (35-45); ARTERIAL BLOOD GAS PH 7.35 (7.35-7.45); ARTERIAL BLOOD GAS PO2 275 mm/Hg (80-100); ARTERIAL BLOOD GAS TCO2 19.8 mmol/L (22-28)
--- NOTE | 2017-04-04 13:30 | CP.PCM.PN ---
Subjective - Date & Time of Evaluation Date of Evaluation: 04/04/17 Time of Evaluation: 13:28 - Subjective Subjective: Events noted. Now intubated, in ICU. On levophed 15 mcg/min; sedated s/p arrest Lasix had been stopped due to worsening renal failure; previously with CHF CXR/ CT chest with probable pneumonia now New allen placed- UO only 250ml this AM Creat increased to 2.5 now Objective - Vital Signs/Intake and Output Vital Signs (last 24 hours): Temp Pulse Resp BP Pulse Ox 97.3 F L 86 16 92/49 L 95 04/04/17 12:00 04/04/17 12:51 04/04/17 12:51 04/04/17 12:51 04/04/17 12:51 Intake and Output: 04/04/17 04/04/17 06:59 18:59 Intake Total 386 0 Output Total 150 Balance 236 0 - Medications Medications: Current Medications Acetylcysteine (Acetylcysteine 20%) 4 ml INH RQ8 [facility] Last Admin: 04/04/17 07:23 Dose: 4 ml Albuterol/Ipratropium (Duoneb 3 Mg/0.5 Mg (3 Ml) Ud) 3 ml INH RQ6 [facility] Last Admin: 04/04/17 07:23 Dose: 3 ml Cilostazol (Pletal) 100 mg PO BID [facility] Last Admin: 04/04/17 10:28 Dose: 100 mg Collagenase (Santyl) 1 gm TOP DAILY [facility] Last Admin: 04/04/17 10:29 Dose: 1 applic Docusate Sodium (Colace) 100 mg PO DAILY [facility] Last Admin: 04/04/17 10:28 Dose: 100 mg Famotidine (Pepcid) 20 mg IVP DAILY [facility] Gabapentin (Neurontin) 100 mg PO BID [facility] Last Admin: 04/04/17 10:28 Dose: 100 mg Guaifenesin (Mucinex La) 600 mg PO BID [facility] Last Admin: 04/04/17 10:28 Dose: 600 mg Heparin Sodium (Porcine) (Heparin) 5,000 units SC Q8 [facility] Last Admin: 04/04/17 05:41 Dose: 5,000 units Imipenem/Cilastatin Sodium 250 (mg/ Sodium Chloride) 100 mls @ 100 mls/hr IVPB Q12 [facility] Last Admin: 04/04/17 10:26 Dose: 100 mls/hr Dexmedetomidine HCl 200 mcg/ (Sodium Chloride) 50 mls @ 4.37 mls/hr IV TITR PRN ; Protocol; 0.2 MCG/KG/HR PRN Reason: Sedation Last Admin: 04/04/17 11:31 Dose: 0.2 mcg/kg/hr, 4.37 mls/hr Norepinephrine Bitartrate 4 mg (/ Dextrose) 254 mls @ 15.24 mls/hr IV .[id number] PRN; Protocol; 4 MCG/MIN PRN Reason: TITRATE PER MD ORDER Last Titration: 04/04/17 12:43 Dose: 15 mcg/min, 57.15 mls/hr Insulin Aspart (Novolog) 0 unit SC ACHS [facility] PRN Reason: Protocol Last Admin: 04/04/17 11:30 Dose: Not Given Insulin Glargine (Lantus) 10 unit SC DAILY [facility] Last Admin: 04/04/17 10:26 Dose: 10 u Lactulose (Enulose) 20 gm PO HS [facility] Last Admin: 04/03/17 21:32 Dose: 20 gm Magnesium Hydroxide (Milk Of Magnesia) 30 ml PO DAILY [facility] Last Admin: 04/04/17 10:27 Dose: 30 ml Mupirocin (Bactroban Ointment) 0 gm TOP BID [facility] Last Admin: 04/03/17 18:02 Dose: 1 applic Polyethylene Glycol (Miralax) 17 gm PO BID [facility] Last Admin: 04/04/17 10:26 Dose: 17 gm Promethazine HCl/Codeine (Phenergan/Codeine Oral Syrup) 5 ml PO Q4 PRN PRN Reason: Cough Last Admin: 03/30/17 17:12 Dose: 5 ml Fluticasone/Salmeterol (Advair Diskus 100/50) 1 puff IH RQD [facility] Last Admin: 04/04/17 10:30 Dose: 1 puff - Labs Labs: 04/04/17 08:34 04/04/17 08:34 PT 15.4 SECONDS (9.7-12.2) H 03/27/17 06:31 INR 1.4 03/27/17 06:31 APTT 32 SECONDS (21-34) 03/26/17 06:03 - Constitutional Appears: In Acute Distress, Chronically Ill - Head Exam Head Exam: ATRAUMATIC, NORMAL INSPECTION - Neck Exam Neck Exam: Normal Inspection. absent: Tenderness - Respiratory Exam Respiratory Exam: Wheezes, Respiratory Distress - Cardiovascular Exam Cardiovascular Exam: REGULAR RHYTHM, +S1 - GI/Abdominal Exam GI & Abdominal Exam: Soft. absent: Tenderness - Extremities Exam Extremities Exam: Normal Inspection. absent: Tenderness - Neurological Exam Neurological Exam: Altered, Motor Sensory Deficit - Skin Skin Exam: Dry, Warm Assessment and Plan (1) LETICIA (acute kidney injury) Status: Acute (2) UTI due to extended-spectrum beta lactamase (ESBL) producing Escherichia coli Status: Acute (3) Diabetic peripheral angiopathy Status: Acute (4) CHF (congestive heart failure) Status: Acute (5) CKD (chronic kidney disease) stage 3, GFR 30-59 ml/min Assessment & Plan: Pressor support Likely worsening pneumonia- IV ABs LETICIA worsening- would repeat trial of IV fluids- discussed with ICU team- they will rx with fluids/IV ABs Monitor renal function/lytes closely
[2017-04-04] MEDS ORDERED: Albumin Human 25% (12.5 gm/50 ml) IV ONE (16:23)
--- NOTE | 2017-04-04 16:36 | CP.PCM.PN ---
<AngelokennediKimi - Last Filed: 04/04/17 16:33> Subjective - Date & Time of Evaluation Date of Evaluation: 04/04/17 Time of Evaluation: 16:33 - Subjective Subjective: Hospitalists progress note by PGY2 Pt is seen and examined at bedside this morning. Patient was awake and oriented and responding to questions. Patient denies having any CP, SOB, abd pain, N/v/D/C. Patient was tolerating diet. Objective - Vital Signs/Intake and Output Vital Signs (last 24 hours): Temp Pulse Resp BP Pulse Ox 97.3 F L 82 19 106/66 100 04/04/17 12:00 04/04/17 16:20 04/04/17 16:20 04/04/17 16:20 04/04/17 16:20 Intake and Output: 04/04/17 04/04/17 06:59 18:59 Intake Total 386 585.7 Output Total 150 200 Balance 236 385.7 - Medications Medications: Current Medications Acetylcysteine (Acetylcysteine 20%) 4 ml INH RQ8 [facility] Last Admin: 04/04/17 07:23 Dose: 4 ml Albuterol/Ipratropium (Duoneb 3 Mg/0.5 Mg (3 Ml) Ud) 3 ml INH RQ6 [facility] Last Admin: 04/04/17 07:23 Dose: 3 ml Cilostazol (Pletal) 100 mg PO BID [facility] Last Admin: 04/04/17 10:28 Dose: 100 mg Collagenase (Santyl) 1 gm TOP DAILY [facility] Last Admin: 04/04/17 10:29 Dose: 1 applic Docusate Sodium (Colace) 100 mg PO DAILY [facility] Last Admin: 04/04/17 10:28 Dose: 100 mg Famotidine (Pepcid) 20 mg IVP DAILY [facility] Gabapentin (Neurontin) 100 mg PO BID [facility] Last Admin: 04/04/17 10:28 Dose: 100 mg Guaifenesin (Mucinex La) 600 mg PO BID [facility] Last Admin: 04/04/17 10:28 Dose: 600 mg Heparin Sodium (Porcine) (Heparin) 5,000 units SC Q8 [facility] Last Admin: 04/04/17 14:47 Dose: 5,000 units Imipenem/Cilastatin Sodium 250 (mg/ Sodium Chloride) 100 mls @ 100 mls/hr IVPB Q12 [facility] Last Admin: 04/04/17 10:26 Dose: 100 mls/hr Dexmedetomidine HCl 200 mcg/ (Sodium Chloride) 50 mls @ 4.37 mls/hr IV TITR PRN ; Protocol; 0.2 MCG/KG/HR PRN Reason: Sedation Last Admin: 04/04/17 11:31 Dose: 0.2 mcg/kg/hr, 4.37 mls/hr Norepinephrine Bitartrate 4 mg (/ Dextrose) 254 mls @ 15.24 mls/hr IV .[id number] PRN; Protocol; 4 MCG/MIN PRN Reason: TITRATE PER MD ORDER Last Admin: 04/04/17 16:20 Dose: 20 mcg/min, 76.2 mls/hr Sodium Chloride (Sodium Chloride 0.9%) 1,000 mls @ 100 mls/hr IV .Q10H [facility] Insulin Aspart (Novolog) 0 unit SC ACHS [facility] PRN Reason: Protocol Last Admin: 04/04/17 11:30 Dose: Not Given Insulin Glargine (Lantus) 10 unit SC DAILY [facility] Last Admin: 04/04/17 10:26 Dose: 10 u Lactulose (Enulose) 20 gm PO HS [facility] Last Admin: 04/03/17 21:32 Dose: 20 gm Magnesium Hydroxide (Milk Of Magnesia) 30 ml PO DAILY [facility] Last Admin: 04/04/17 10:27 Dose: 30 ml Mupirocin (Bactroban Ointment) 0 gm TOP BID [facility] Last Admin: 04/04/17 13:46 Dose: Not Given Polyethylene Glycol (Miralax) 17 gm PO BID [facility] Last Admin: 04/04/17 10:26 Dose: 17 gm Promethazine HCl/Codeine (Phenergan/Codeine Oral Syrup) 5 ml PO Q4 PRN PRN Reason: Cough Last Admin: 03/30/17 17:12 Dose: 5 ml Fluticasone/Salmeterol (Advair Diskus 100/50) 1 puff IH RQD [facility] Last Admin: 04/04/17 10:30 Dose: 1 puff - Labs Labs: 04/04/17 08:34 04/04/17 08:34 PT 15.4 SECONDS (9.7-12.2) H 03/27/17 06:31 INR 1.4 03/27/17 06:31 APTT 32 SECONDS (21-34) 03/26/17 06:03 - Constitutional Appears: No Acute Distress - Head Exam Head Exam: ATRAUMATIC - ENT Exam ENT Exam: Mucous Membranes Moist - Respiratory Exam Respiratory Exam: Rales, Rhonchi (diffusely) - Cardiovascular Exam Cardiovascular Exam: REGULAR RHYTHM, +S1, +S2 - GI/Abdominal Exam GI & Abdominal Exam: Soft, Normal Bowel Sounds. absent: Firm, Tenderness, Organomegaly - Neurological Exam Neurological Exam: Alert, Awake - Skin Skin Exam: Normal Color, Warm Assessment and Plan - Assessment and Plan (Free Text) Assessment: (1) Acute exacerbation of CHF (congestive heart failure) Consult: Dr. Canales (Cardiology) on board-->help appreciated Echocardiogram (03/21/17): EF: 25%, septal motion consistent with post operative state. Global hypokinesis of the left ventricle. Grade II-pseudonormal filling. Severe valvular aortic stenosis. Mitral regurgitation is moderate. Severe pulmonary hypertension Per cardiology, patient is not a surgical candidate for aortic stenosis Amiodarone 200mg PO daily Lasix 40mg IVP Daily (2) Anemia Acute anemia, likely due to acute blood loss Stable Endoscopy (03/21): monillial esophagitis. Cells for cytology obtained. Erosive gastropahty. Normal examined duodenum-->negative cytology cells Consult: Dr. Ag (GI) on board-->help appreciated CT Abd/pelvis: no evidence of intraperitoneal hemorrhage or retroperitoneal hemorrhage Ferrous sulfate 325mg PO BID Ascites fluid cx: no growth (3) Ascites Possibly secondary to CHF and Acute Kidney Injury Intervential Radiology Consult, Dr. Franco Skaggs --> Help Appreciated Paracentesis performed 03/27/17: removed 2L of dark yellow fluid negative for SBP - Peritoneal Fluid: Clear; WBC- 309, RBS 1225, Total Cell Count-100, Neutrophil-70, Lymphocyte-25, Monocyte/Macrophage-5 - Fluid culture/smear of peritoneal fluid- no growth detected (4) UTI (urinary tract infection) Primaxin 250mg IV Q12 Urine culture (03/20/17): +ESBL Repeat Urine Culture (03/27/17)- No growth (5) A-fib Amiodarone 200mg PO daily Patient is off Xarelto secondary to GI workup r/o bleed (6) Cough Acute on chronic cough, acute bronchitis, suspected pneumonia Sputum Culture: Few polymorphonuclear WBS, few epithelial cells, no organisms seen. (7) LETICIA (acute kidney injury) Consult: Dr. Reynolds (nephrology) on board-->help appreciated (8) HTN (hypertension) Patient is borderline hypotensive. 114/76 on 04/03/17 Status: Acute (9) Hx of CABG Continue medical management as per cardiology. (10) Diabetes Hgba1c: 7.2 Lantus 10 units subq daily (11) Hyperlipidemia Discontinued statin (12) Peripheral vascular disease Pletal 100mg PO BID (13) Esophageal candidiasis On Diflucan 200mg IV q daily (active since 03/22/17), last dose tomorrow (04/05) (14) Constipation Constipated for 8+ days Abdominal xray: gas distension of stomach and small bowel loops, may be ileus or obstruction Surgery consulted, Dr. Lara, help appreciated. no surgery at this time recommended; recommend CT w/PO contrast, tap water enema, PT, and activity. (15) Prophylactic measure Protonix 40mg PO daily Heparin 5000 units subq 12 hours PT/OT evaluation Palliative Care Consult placed on 03/27/17 A few hours after patient was examined in the morning, Rapid Response was called on patient for acute respiratory distress. During the rapid, patient lost pulses and Code Blue was called. ACLS protocol was initiated. Patient eventually returned to ROSC and was transferred to ICU. Continue care based upon ICU care team. Case discussed with attending, Dr. Leonard. <Noemí Leonard V - Last Filed: 04/04/17 17:10> Objective - Vital Signs/Intake and Output Vital Signs (last 24 hours): Temp Pulse Resp BP Pulse Ox 97.3 F L 82 19 106/66 100 04/04/17 12:00 04/04/17 16:20 04/04/17 16:20 04/04/17 16:20 04/04/17 16:20 Intake and Output: 04/04/17 04/04/17 06:59 18:59 Intake Total 386 585.7 Output Total 150 200 Balance 236 385.7 - Medications Medications: Current Medications Acetylcysteine (Acetylcysteine 20%) 4 ml INH RQ8 [facility] Last Admin: 04/04/17 07:23 Dose: 4 ml Albuterol/Ipratropium (Duoneb 3 Mg/0.5 Mg (3 Ml) Ud) 3 ml INH RQ6 [facility] Last Admin: 04/04/17 07:23 Dose: 3 ml Cilostazol (Pletal) 100 mg PO BID [facility] Last Admin: 04/04/17 10:28 Dose: 100 mg Collagenase (Santyl) 1 gm TOP DAILY [facility] Last Admin: 04/04/17 10:29 Dose: 1 applic Docusate Sodium (Colace) 100 mg PO DAILY [facility] Last Admin: 04/04/17 10:28 Dose: 100 mg Famotidine (Pepcid) 20 mg IVP DAILY [facility] Gabapentin (Neurontin) 100 mg PO BID [facility] Last Admin: 04/04/17 10:28 Dose: 100 mg Guaifenesin (Mucinex La) 600 mg PO BID [facility] Last Admin: 04/04/17 10:28 Dose: 600 mg Heparin Sodium (Porcine) (Heparin) 5,000 units SC Q8 [facility] Last Admin: 04/04/17 14:47 Dose: 5,000 units Imipenem/Cilastatin Sodium 250 (mg/ Sodium Chloride) 100 mls @ 100 mls/hr IVPB Q12 [facility] Last Admin: 04/04/17 10:26 Dose: 100 mls/hr Dexmedetomidine HCl 200 mcg/ (Sodium Chloride) 50 mls @ 4.37 mls/hr IV TITR PRN ; Protocol; 0.2 MCG/KG/HR PRN Reason: Sedation Last Admin: 04/04/17 11:31 Dose: 0.2 mcg/kg/hr, 4.37 mls/hr Norepinephrine Bitartrate 4 mg (/ Dextrose) 254 mls @ 15.24 mls/hr IV .[id number] PRN; Protocol; 4 MCG/MIN PRN Reason: TITRATE PER MD ORDER Last Admin: 04/04/17 16:20 Dose: 20 mcg/min, 76.2 mls/hr Sodium Chloride (Sodium Chloride 0.9%) 1,000 mls @ 100 mls/hr IV .Q10H [facility] Last Admin: 04/04/17 16:58 Dose: 100 mls/hr Insulin Aspart (Novolog) 0 unit SC Q6H [facility] PRN Reason: Protocol Insulin Glargine (Lantus) 10 unit SC DAILY [facility] Last Admin: 04/04/17 10:26 Dose: 10 u Lactulose (Enulose) 20 gm PO HS [facility] Last Admin: 04/03/17 21:32 Dose: 20 gm Magnesium Hydroxide (Milk Of Magnesia) 30 ml PO DAILY [facility] Last Admin: 04/04/17 10:27 Dose: 30 ml Mupirocin (Bactroban Ointment) 0 gm TOP BID [facility] Last Admin: 04/04/17 13:46 Dose: Not Given Polyethylene Glycol (Miralax) 17 gm PO BID [facility] Last Admin: 04/04/17 10:26 Dose: 17 gm Promethazine HCl/Codeine (Phenergan/Codeine Oral Syrup) 5 ml PO Q4 PRN PRN Reason: Cough Last Admin: 03/30/17 17:12 Dose: 5 ml Fluticasone/Salmeterol (Advair Diskus 100/50) 1 puff IH RQD [facility] Last Admin: 04/04/17 10:30 Dose: 1 puff - Labs Labs: 04/04/17 08:34 04/04/17 08:34 PT 15.4 SECONDS (9.7-12.2) H 03/27/17 06:31 INR 1.4 03/27/17 06:31 APTT 32 SECONDS (21-34) 03/26/17 06:03 Attending/Attestation - Attestation I have personally seen and examined this patient.: Yes I have fully participated in the care of the patient.: Yes I have reviewed all pertinent clinical information, including history, physical exam and plan: Yes Notes (Text): Patient seen, examined and case discussed with day-time pr internship, ICU resident, and intenvisit. REHABILITATION THERAPY AIDE called 1032AM for acute respiratory distress. Patient visually having trouble breathing prompting intubation and code blue called at 1037 for asystole. I was present with code, with my colleague, Dr Ambrocio, and ICU, Dr. Padilla. Patient administered total 3 epinephrines and ROSC at 1045AM. Discussed with patient's at bedside, and patient's nephew with outside installation machinist present. Patient prompted for intubation given acute respiratory failure and when patient 's asystole patient underwent ACLS including CPR and 3 epi. Patient's tutoring assistant informed by the resident following code. Patient transferred to the intensive care unit for further management per ICU. Code status rediscussed by ICU with family. Patient does not want central line and do not want additional pressures. Patient is on max dose pressure at this time. Discussed with ICU/pulm, patient has extensive perihilar pneumonia. Patient is currently on IV antibiotic.
--- NOTE | 2017-04-04 18:27 | PCM.RRTMUL ---
<Kimi Carias - Last Filed: 04/04/17 18:17> LEGAL AIDE Nurses Assessment - Situation LEGAL AIDE Responder Arrival Time:: 12:33 - IV IV Inserted during LEGAL AIDE?: No IV Fluids Initiated During LEGAL AIDE?: NS 250cc - Respiratory Oxygen Delivery Method:: BiPAP - Ventilator Settings FIO2 (% Oxygen):: 60 - Diagnostic Test Ordered EKG:: Yes (sinus rhythm with PVCs at 82bpm LBBB LA Left [place] deviation) Chest X-Ray:: Yes (pending report) - Vital Signs Blood Pressure:: 99/58 Pulse Rate:: 80 Respiratory Rate:: 19 - Wanda Coma Scale Coma Scale Eye Opening:: Spontaneous Coma Scale Motor:: Obeys Commands Movement Coma Scale Verbal:: Oriented Coma Scale Total:: 15 - Sepsis Screen Part 1 Sepsis Screen Part 1: Hypotensive - Time LEGAL AIDE Ended Time LEGAL AIDE Ended:: 13:15 (Accepted to ICU by senior boiler operator Patient transferred at 13 :15) - Recommendations 5) LEGAL AIDE Level of Care Recommendations: Transfer to ICU 6) Notifications: Attending Physician, Consultations, Family or Designated Caregiver I.Reason for LEGAL AIDE - A) Acute Change in Patient: (Select all that apply): Acute change in respiratory rate less than 8 or greater than 28 - B) Neurological Status (Select all that apply): Responsive - C) Respiratory Oxygen Delivery Method: Face Mask @% - Constitutional Appears: Toxic, In Acute Distress - Respiratory Exam Respiratory Exam: Accessory Muscle Use, Respiratory Distress - GI/Abdominal Exam GI & Abdominal Exam: absent: Distended, Tenderness - Neurological Exam Neurological Exam: Awake Plan - A. End of LEGAL AIDE Vital Signs: Blood Pressure: 85/46 Pulse Rate: 84 Respiratory Rate: 16 Temperature: 97.3 F O2 Sat by Pulse Oximetry: 100 - B. Assessment of Findings&Treatment Plan Rapid Response was called on patient for acute respiratory distress at 1032 am. Rapid response team responded. Patient was on nasal cannula but still in respiratory distress. Patient lost pulses and Code Blue was initiated at 10: 37am. Patient was intubated by Dr. Padilla. ACLS protocol was initiated. 3 rounds of epinephrine were given. Patient returned to spontaneous circulation and he was transferred to ICU. Rapid response team accompanied patient to ICU. Patient's family was at bedside. Patient's beading sawyer, Dr. Canales was notified. Procedures Attestation:: I certify that I have explained the specified Operation(s) or Procedure(s), risks, benefits and reasonable alternatives to the Patient and/or other person responsible. The opportunity was given to ask questions and all questions answered - Intubation Time Out Performed: No Sedative: None Laryngoscope: Candie ET Tube Uncuffed: Yes ET Tube Placement Confirmation: Visualized Passing Through Cords, Breath Sounds Equal Bilaterally, No Breath Sounds Over Epigastrum, Confirmation w/Capnometry Patient Tolerated Procedure: Well Procedure Immediate Complications: None <Noemí Leonard V - Last Filed: 04/05/17 06:17> LEGAL AIDE Nurses Assessment - Situation LEGAL AIDE Responder Arrival Time:: 10:32 Location:: [address] [place] [address] LEGAL AIDE Reason for Call: Respiratory Distress LEGAL AIDE Called By: RN - Respiratory Was the Patient Intubated?: Yes - Diagnostic Test Ordered EKG:: No (not at time of LEGAL AIDE) Chest X-Ray:: Yes (post-intubation) CPR started during LEGAL AIDE?: Yes - Time LEGAL AIDE Ended Time LEGAL AIDE Ended:: 10:43 - Respiratory Exam Respiratory Exam: Rales, Rhonchi - GI/Abdominal Exam GI & Abdominal Exam: Normal Bowel Sounds. absent: Soft Attending/Attestation - Attestation I have personally seen and examined this patient.: Yes I have fully participated in the care of the patient.: Yes I have reviewed all pertinent clinical information, including history, physical exam and plan: Yes Notes (Text): Responded to LEGAL AIDE on 04/04/17; note error in timing; updated in my note and prior progress note. Patient did not have EKG. Patient monitor on cardiac monitoring. Chest xray ordered for post intubation. Patient in acute respiratory distress warranting intubation. Patient intubated by ICU. Patient had cardiac arrest; asystole on the monitor, CPR and ACLS initiated; received 3 epis total. ROSC achieved. Patient transferred to the ICU for further management. At time of LEGAL AIDE and code blue, patient is full code; discussed with patient's regarding events with other family members present and gas station attendant present.
[2017-04-05] MEDS: (Novolog) Insulin Aspart, Recombinant 100 u/ml 10 ml vial SC SCH ×4 (00:38→18:45)
[2017-04-05] MEDS: Albuterol-Ipratrop 3 mg / 0.5 (3 ml) UD INH SCH ×4 (01:02→19:19)
[2017-04-05] MEDS: Acetylcysteine 20% Inhal Soln (4ml) INH SCH ×3 (01:02→19:19)
[2017-04-05] MEDS: Sodium Chloride 0.9% 1,000 ML IV SCH ×4 (03:17→23:54)
[2017-04-05] MEDS: Dexmedetomidine Hydrochloride 200 MCG in Sodium Chloride 0.9% 48 ML IV PRN ×3 (03:18→20:32)
[2017-04-05 06:01] LABS: ABG ALLEN TEST POS; ARTERIAL BLOOD GAS HCO3 18.2 mmol/L (21-28); ARTERIAL BLOOD GAS HEMOGLOBIN 6.9 g/dL (11.7-17.4); ARTERIAL BLOOD GAS O2 SAT 98.8 % (95-98); ARTERIAL BLOOD GAS PCO2 23 mm/Hg (35-45); ARTERIAL BLOOD GAS PH 7.42 (7.35-7.45); ARTERIAL BLOOD GAS PO2 78 mm/Hg (80-100); ARTERIAL BLOOD GAS TCO2 15.6 mmol/L (22-28)
[2017-04-05 06:55] LABS: HEMOGLOBIN 8.1 g/dL (12.0-18.0); MEAN CELL VOLUME 85.2 fL (80.0-94.0); MEAN CORPUSCULAR HEMOGLOBIN 27.7 pg (27.0-31.0); MEAN CORPUSCULAR HGB CONC 32.5 g/dL (33.0-37.0); MEAN PLATELET VOLUME 8.8 fL (7.2-11.7); RBC 2.93 Mil/uL (4.40-5.90); RED CELL DISTRIBUTION WIDTH 18.6 % (11.5-14.5); WHITE BLOOD COUNT 5.8 K/uL (4.8-10.8)
[2017-04-05 07:09] LABS: ALBUMIN 2.4 g/dL (3.5-5.0)
[2017-04-05 07:12] LABS: ALB/GLOB RATIO 0.7 (1.0-2.1)
[2017-04-05 07:13] LABS: CALCIUM 7.4 mg/dl (8.6-10.4)
--- NOTE | 2017-04-05 07:41 | CP.PCM.PN ---
Subjective - Date & Time of Evaluation Date of Evaluation: 04/05/17 Time of Evaluation: 06:20 - Subjective Subjective: General Surgery Dr. Lara Pt S&E @bedside. NAEO. intubated and sedated. vent settings:60%, 500, 5, 16. Per nursing, large BM this AM. Objective - Vital Signs/Intake and Output Vital Signs (last 24 hours): Temp Pulse Resp BP Pulse Ox 98.2 F 85 11 L 96/65 L 100 04/05/17 04:00 04/05/17 05:00 04/05/17 05:00 04/05/17 05:00 04/05/17 04:30 Intake and Output: 04/05/17 04/05/17 06:59 18:59 Intake Total 2633.1 Output Total 325 Balance 2308.1 - Medications Medications: Current Medications Acetylcysteine (Acetylcysteine 20%) 4 ml INH RQ8 [facility] Last Admin: 04/05/17 01:02 Dose: 4 ml Albuterol/Ipratropium (Duoneb 3 Mg/0.5 Mg (3 Ml) Ud) 3 ml INH RQ6 [facility] Last Admin: 04/05/17 01:02 Dose: 3 ml Cilostazol (Pletal) 100 mg PO BID [facility] Last Admin: 04/04/17 17:26 Dose: 100 mg Collagenase (Santyl) 1 gm TOP DAILY [facility] Last Admin: 04/04/17 10:29 Dose: 1 applic Docusate Sodium (Colace) 100 mg PO DAILY [facility] Last Admin: 04/04/17 10:28 Dose: 100 mg Famotidine (Pepcid) 20 mg IVP DAILY [facility] Gabapentin (Neurontin) 100 mg PO BID [facility] Last Admin: 04/04/17 17:26 Dose: 100 mg Heparin Sodium (Porcine) (Heparin) 5,000 units SC Q8 [facility] Last Admin: 04/05/17 06:59 Dose: 5,000 units Imipenem/Cilastatin Sodium 250 (mg/ Sodium Chloride) 100 mls @ 100 mls/hr IVPB Q12 [facility] Last Admin: 04/04/17 21:09 Dose: 100 mls/hr Dexmedetomidine HCl 200 mcg/ (Sodium Chloride) 50 mls @ 4.37 mls/hr IV TITR PRN ; Protocol; 0.2 MCG/KG/HR PRN Reason: Sedation Last Admin: 04/05/17 03:18 Dose: 0.2 mcg/kg/hr, 4.37 mls/hr Norepinephrine Bitartrate 4 mg (/ Dextrose) 254 mls @ 15.24 mls/hr IV .[id number] PRN; Protocol; 4 MCG/MIN PRN Reason: TITRATE PER MD ORDER Last Titration: 04/05/17 03:00 Dose: 11 mcg/min, 41.91 mls/hr Sodium Chloride (Sodium Chloride 0.9%) 1,000 mls @ 100 mls/hr IV .Q10H [facility] Last Admin: 04/05/17 03:17 Dose: 100 mls/hr Insulin Aspart (Novolog) 0 unit SC Q6H [facility] PRN Reason: Protocol Last Admin: 04/05/17 06:59 Dose: 3 unit Insulin Glargine (Lantus) 10 unit SC DAILY [facility] Last Admin: 04/04/17 10:26 Dose: 10 u Lactulose (Enulose) 20 gm PO HS [facility] Last Admin: 04/04/17 21:09 Dose: 20 gm Magnesium Hydroxide (Milk Of Magnesia) 30 ml PO DAILY [facility] Last Admin: 04/04/17 10:27 Dose: 30 ml Mupirocin (Bactroban Ointment) 0 gm TOP BID [facility] Last Admin: 04/04/17 17:38 Dose: Not Given Polyethylene Glycol (Miralax) 17 gm PO BID [facility] Last Admin: 04/04/17 17:25 Dose: 17 gm Promethazine HCl/Codeine (Phenergan/Codeine Oral Syrup) 5 ml PO Q4 PRN PRN Reason: Cough Last Admin: 03/30/17 17:12 Dose: 5 ml Fluticasone/Salmeterol (Advair Diskus 100/50) 1 puff IH RQD [facility] Last Admin: 04/04/17 10:30 Dose: 1 puff - Labs Labs: 04/05/17 06:46 04/05/17 06:46 PT 15.4 SECONDS (9.7-12.2) H 03/27/17 06:31 INR 1.4 03/27/17 06:31 APTT 32 SECONDS (21-34) 03/26/17 06:03 - Constitutional Appears: Non-toxic, No Acute Distress - Head Exam Head Exam: NORMAL INSPECTION - Eye Exam Eye Exam: Normal appearance - ENT Exam ENT Exam: Mucous Membranes Moist Additional comments: ETT in place - Respiratory Exam Respiratory Exam: NORMAL BREATHING PATTERN. absent: Accessory Muscle Use, Respiratory Distress (mechanical ventilation) - Cardiovascular Exam Cardiovascular Exam: absent: Bradycardia, Tachycardia - GI/Abdominal Exam GI & Abdominal Exam: Distended, Soft. absent: Guarding, Rebound - Neurological Exam Neurological Exam: Altered (sedated) - Psychiatric Exam Additional comments: sedated, unable to assess - Skin Skin Exam: Dry, Intact, Warm Assessment and Plan - Assessment and Plan (Free Text) Assessment: 71 y/o M w/ constipation - Cont MoM and miralax - cont monitoring BM - Serial abdominal exams - cont ICU management Pt discussed w/ Dr. Marco Hodge PGY2
[2017-04-05] MEDS: Fluticasone-Salmeterol 100-50mcg Diskus IH SCH (08:25)
--- NOTE | 2017-04-05 09:13 | CP.PCM.PN ---
Subjective - Date & Time of Evaluation Date of Evaluation: 04/05/17 Time of Evaluation: 09:00 - Subjective Subjective: Medical Attending Note: Follow-up: Pneumonia, Acute on Chronic Congestive Heart Failure Exacerbation, Acute Renal Insufficiency and multiple other co-morbidities Patient seen and examined at bedside. Patient's is not present. Unable to assess ROS secondary to clinical condition. Patient has had multiple large bowel movements per discussion with nurse. Will discontinue bowel regimen. Discussed with nephrology, patient is not making urine, recommending for dialysis, pending call-back from the , discussed with nurse; they are flushing the allen and no return, and recommended drop in fluids to 50cc/hr. Objective - Vital Signs/Intake and Output Vital Signs (last 24 hours): Temp Pulse Resp BP Pulse Ox 98.2 F 83 16 103/64 100 04/05/17 04:00 04/05/17 09:00 04/05/17 09:00 04/05/17 08:46 04/05/17 08:46 Intake and Output: 04/05/17 04/05/17 06:59 18:59 Intake Total 2847.5 191.31 Output Total 360 20 Balance 2487.5 171.31 - Medications Medications: Current Medications Acetylcysteine (Acetylcysteine 20%) 4 ml INH RQ8 [facility] Last Admin: 04/05/17 08:25 Dose: 4 ml Albuterol/Ipratropium (Duoneb 3 Mg/0.5 Mg (3 Ml) Ud) 3 ml INH RQ6 [facility] Last Admin: 04/05/17 08:25 Dose: 3 ml Cilostazol (Pletal) 100 mg PO BID [facility] Last Admin: 04/04/17 17:26 Dose: 100 mg Collagenase (Santyl) 1 gm TOP DAILY [facility] Last Admin: 04/04/17 10:29 Dose: 1 applic Docusate Sodium (Colace) 100 mg PO DAILY [facility] Last Admin: 04/04/17 10:28 Dose: 100 mg Famotidine (Pepcid) 20 mg IVP DAILY [facility] Gabapentin (Neurontin) 100 mg PO BID [facility] Last Admin: 04/04/17 17:26 Dose: 100 mg Heparin Sodium (Porcine) (Heparin) 5,000 units SC Q8 [facility] Last Admin: 04/05/17 06:59 Dose: 5,000 units Imipenem/Cilastatin Sodium 250 (mg/ Sodium Chloride) 100 mls @ 100 mls/hr IVPB Q12 [facility] Last Admin: 04/04/17 21:09 Dose: 100 mls/hr Dexmedetomidine HCl 200 mcg/ (Sodium Chloride) 50 mls @ 4.37 mls/hr IV TITR PRN ; Protocol; 0.2 MCG/KG/HR PRN Reason: Sedation Last Titration: 04/05/17 08:00 Dose: 0.3 mcg/kg/hr, 6.56 mls/hr Norepinephrine Bitartrate 4 mg (/ Dextrose) 254 mls @ 15.24 mls/hr IV .[id number] PRN; Protocol; 4 MCG/MIN PRN Reason: TITRATE PER MD ORDER Last Titration: 04/05/17 07:30 Dose: 15 mcg/min, 57.15 mls/hr Sodium Chloride (Sodium Chloride 0.9%) 1,000 mls @ 100 mls/hr IV .Q10H [facility] Last Admin: 04/05/17 03:17 Dose: 100 mls/hr Insulin Aspart (Novolog) 0 unit SC Q6H [facility] PRN Reason: Protocol Last Admin: 04/05/17 06:59 Dose: 3 unit Insulin Glargine (Lantus) 10 unit SC DAILY [facility] Last Admin: 04/04/17 10:26 Dose: 10 u Lactulose (Enulose) 20 gm PO HS [facility] Last Admin: 04/04/17 21:09 Dose: 20 gm Mupirocin (Bactroban Ointment) 0 gm TOP BID [facility] Last Admin: 04/04/17 17:38 Dose: Not Given Polyethylene Glycol (Miralax) 17 gm PO BID [facility] Last Admin: 04/04/17 17:25 Dose: 17 gm Fluticasone/Salmeterol (Advair Diskus 100/50) 1 puff IH RQD [facility] Last Admin: 04/05/17 08:25 Dose: 1 puff - Labs Labs: 04/05/17 06:46 04/05/17 06:46 PT 15.4 SECONDS (9.7-12.2) H 03/27/17 06:31 INR 1.4 03/27/17 06:31 APTT 32 SECONDS (21-34) 03/26/17 06:03 - Constitutional Appears: Older Than Stated Age, Chronically Ill - Head Exam Head Exam: NORMAL INSPECTION - ENT Exam ENT Exam: Mucous Membranes Dry - Respiratory Exam Respiratory Exam: Decreased Breath Sounds, Rales, Rhonchi. absent: Stridor Additional comments: intubated on vent - Cardiovascular Exam Cardiovascular Exam: REGULAR RHYTHM, +S1, +S2 - GI/Abdominal Exam GI & Abdominal Exam: Distended, Soft, Normal Bowel Sounds. absent: Firm, Guarding, Rigid, Tenderness, Rebound - Extremities Exam Extremities Exam: Joint Swelling, Pedal Edema. absent: Calf Tenderness - Skin Skin Exam: Dry, Normal Color, Warm - Additional Findings Additional findings: Right upper extremity PICC line erythema over the feet bilateral feet Assessment and Plan (1) Acute respiratory failure Assessment & Plan: 04/05: Patient is intubated; Patient is currently on primaxin IV (since 03/22/17) to cover for pneumonia and prior UTI infection 04/04: PROJECT SYSTEMS ENGINEER and Code Blue: Requiring intubation; patient was full code at the time and discussed and reconfirmed with at bedside at time of PROJECT SYSTEMS ENGINEER; patient noted to have many secretions likely secondary to pneumoni Pulmonary (Dr. Padilla) on the case-->help appreciated Status: Acute (2) Cardiac arrest Assessment & Plan: 04/05: Patient is currently on pressor this morning and mild sedation 04/04: PROJECT SYSTEMS ENGINEER and Code blue; requiring intubation and requiring 3 EPIs and ROSC returned and confirmed with doppler; Cardiology informed Status: Acute (3) Acute exacerbation of CHF (congestive heart failure) Assessment & Plan: * Consult: Dr. Canales (Cardiology) on board-->help appreciated * Echocardiogram (03/21/17): EF: 25%, septal motion consistent with post operative state. Global hypokinesis of the left ventricle. Grade II- pseudonormal filling. Severe valvular aortic stenosis. Mitral regurgitation is moderate. Severe pulmonary hypertension * Per cardiology, patient is not a surgical candidate for aortic stenosis * Patient has gained about 40lbs since admission. * Unable to given heart failure medications including beta-darrel, diuretic, and juan jose/arb secondary to hypotension (SBP:80-90s) during admission Status: Acute (4) Acute renal insufficiency Assessment & Plan: 04/05: Discussed with Dr. Reynolds (nephrology) will discuss with patient's regarding starting dialysis Consult: Dr. Reynolds (nephrology) on the case help appreciated Patient's Cr: 2.2 with associated GFR: 30-40s Discussed with ICU nurse today, patient is not making urine and allen has been flushed no return. Pending decision for dialysis. Patient has gained 40lbs of fluid since start of admission; contributing factors including ischemic cardiomyopathy, and severe aortic stenosis Status: Acute (5) Pneumonia Assessment & Plan: Pending read of chest xray today (04/05/17) Primaxin IV (active since 03/22/17) CT Chest (04/02/17): small bilateral pleural effusions and associated compressive consolidations. perihilar infiltrates. Recommend follow-up to resolution. Right sided PICC. Cardiomeglay. Dense vavular and coronary artery calcifications. prevascular and mediastinal lymph nodes measuring up to 14 mm in short axis. Upper abdomen reveal diffuse ascites. Cholecystectomy clips Status: Acute (6) Severe aortic stenosis Assessment & Plan: Patient is not candidate for intervention for aortic stenosis Status: Chronic (7) Candidiasis of esophagus Assessment & Plan: GI (Dr. Ag) on board-->help appreciated Fungual psuedohyphae and yeast, morphologically consistent with tony are present. Squamous and glandular cells with reactive changes. Scattered neutrophils Patient has completed 14 days Iv Diflucan. Status: Acute (8) Esophageal candidiasis Status: Chronic (9) Ileus Assessment & Plan: 04/05: patient has had multiple bowel movements today; Discontinued bowel regimen ; given per conversation with ICU nurse he is having multiple bowel movements General surgery (Dr. Lara) on board-->help appreciated Abdominal obstructive series (04/03/17): no complete or hgh grade bowel obstruction suspect. small bowel loops are mixed in character some are normal calier some are borderline increased to 4mm. No complete or high grade small bowel obstruction suggestion. Cannot exclude intermittent or mild partial small bowel obsutrction. Righr colonic-hepatic flexure moderate stool retention Status: Resolved (10) Peripheral vascular disease Assessment & Plan: 04/05: pletal 100mg PO bid; patient is currently off Aspirin/Plavix/Xarelto secondary to workup GI source of anemia Status: Chronic (11) Anemia Assessment & Plan: 04/05 Patient's hemoglobin: 8.1; continue H/H Consult: Dr. Ag (GI transportation design engineer)--> help appreciated Patient has underwent EGD on 03/21/17--> monilial esophagitis; small hiatus hernia; erosive gastropathy, normal examined duodenum Patient is currently off Xarelto for known history of atrial fibrillation Patient is off Aspirin for known history of ischemic cardiomyopathy, peripheral vascular disease Patient is pending colonoscopy when cardiac velasquez stable Patient has required PRBC transfusion (4 total) during this hospitalization On DVT ppx Status: Acute (12) Ascites Assessment & Plan: 04/05 patient has ascites likely secondary to extensive cardiac history including ischemic cardiomyopathy and severe aortic stenosis and acute renal insufficiency Consult: Dr Ag (GI) on board-->help appreciated patient has underwent paracentesis during this hospitalization; has had 2 Liters of fluid removed Status: Acute (13) Anemia Status: Chronic (14) Prophylactic measure Assessment & Plan: Pepcid 20mg PO bid for GI ppx Heparin 5000 units subq 8 hours for DVT ppx Wound care regarding patient's heels Contraindications to SCDS; patient has peripheral vascular disease Status: Acute
[2017-04-05] MEDS: (Lantus) Insulin Glargine, Recombinant SC SCH (09:26)
[2017-04-05] MEDS: Cilostazol 100 mg Tab UD PO SCH ×2 (09:37→17:21)
[2017-04-05] MEDS: Collagenase 250 Units/gm Ointment(30 gm) TOP SCH (09:45)
--- NOTE | 2017-04-05 10:09 | CP.PCM.PN ---
Subjective - Date & Time of Evaluation Date of Evaluation: 04/05/17 Time of Evaluation: 10:06 - Subjective Subjective: pt seen and examined intubated, on vent, FIO2 60% UOP 500 cc on iv fluids no events overnight now DNR soidum 124- ? lab error- drawn from picc line ROS- unable to obtain as intubated and sedated Objective - Vital Signs/Intake and Output Vital Signs (last 24 hours): Temp Pulse Resp BP Pulse Ox 98.2 F 83 16 103/64 100 04/05/17 04:00 04/05/17 09:00 04/05/17 09:00 04/05/17 08:46 04/05/17 08:46 Intake and Output: 04/05/17 04/05/17 06:59 18:59 Intake Total 2847.5 191.31 Output Total 360 20 Balance 2487.5 171.31 - Medications Medications: Current Medications Acetylcysteine (Acetylcysteine 20%) 4 ml INH RQ8 [facility] Last Admin: 04/05/17 08:25 Dose: 4 ml Albuterol/Ipratropium (Duoneb 3 Mg/0.5 Mg (3 Ml) Ud) 3 ml INH RQ6 [facility] Last Admin: 04/05/17 08:25 Dose: 3 ml Cilostazol (Pletal) 100 mg PO BID [facility] Last Admin: 04/05/17 09:37 Dose: 100 mg Collagenase (Santyl) 1 gm TOP DAILY [facility] Last Admin: 04/05/17 09:45 Dose: 1 applic Famotidine (Pepcid) 20 mg PO DAILY [facility] Heparin Sodium (Porcine) (Heparin) 5,000 units SC Q8 [facility] Last Admin: 04/05/17 06:59 Dose: 5,000 units Imipenem/Cilastatin Sodium 250 (mg/ Sodium Chloride) 100 mls @ 100 mls/hr IVPB Q12 [facility] Last Admin: 04/05/17 09:29 Dose: 100 mls/hr Dexmedetomidine HCl 200 mcg/ (Sodium Chloride) 50 mls @ 4.37 mls/hr IV TITR PRN ; Protocol; 0.2 MCG/KG/HR PRN Reason: Sedation Last Titration: 04/05/17 08:00 Dose: 0.3 mcg/kg/hr, 6.56 mls/hr Norepinephrine Bitartrate 4 mg (/ Dextrose) 254 mls @ 15.24 mls/hr IV .[id number] PRN; Protocol; 4 MCG/MIN PRN Reason: TITRATE PER MD ORDER Last Titration: 04/05/17 07:30 Dose: 15 mcg/min, 57.15 mls/hr Sodium Chloride (Sodium Chloride 0.9%) 1,000 mls @ 75 mls/hr IV .[id number] [facility] Last Admin: 04/05/17 09:51 Dose: Not Given Insulin Aspart (Novolog) 0 unit SC Q6H [facility] PRN Reason: Protocol Last Admin: 04/05/17 06:59 Dose: 3 unit Insulin Glargine (Lantus) 10 unit SC DAILY [facility] Last Admin: 04/05/17 09:26 Dose: 10 units Mupirocin (Bactroban Ointment) 0 gm TOP BID [facility] Last Admin: 04/05/17 09:44 Dose: 1 applic Fluticasone/Salmeterol (Advair Diskus 100/50) 1 puff IH RQD [facility] Last Admin: 04/05/17 08:25 Dose: 1 puff - Labs Labs: 04/05/17 06:46 04/05/17 06:46 PT 15.4 SECONDS (9.7-12.2) H 03/27/17 06:31 INR 1.4 03/27/17 06:31 APTT 32 SECONDS (21-34) 03/26/17 06:03 - Head Exam Head Exam: ATRAUMATIC, NORMOCEPHALIC - Eye Exam Eye Exam: EOMI - ENT Exam Additional comments: ET tube in place - Respiratory Exam Respiratory Exam: Rhonchi. absent: Wheezes - Cardiovascular Exam Cardiovascular Exam: REGULAR RHYTHM, +S1, +S2 - GI/Abdominal Exam GI & Abdominal Exam: Soft. absent: Distended - Extremities Exam Extremities Exam: Pedal Edema Additional comments: all 4 extremities - Neurological Exam Neurological Exam: absent: Alert, Awake, Oriented x3 - Skin Skin Exam: Warm Assessment and Plan (1) LETICIA (acute kidney injury) Status: Acute (2) Acute respiratory failure Status: Acute (3) Anemia Status: Acute (4) CHF (congestive heart failure) Status: Acute (5) CKD (chronic kidney disease) stage 3, GFR 30-59 ml/min Status: Acute (6) Pneumonia Status: Acute (7) Severe aortic stenosis Status: Chronic (8) Ileus Status: Resolved - Assessment and Plan (Free Text) Plan: recheck chem 7 for sodium level decrease iv fluids to 50 cc/hr needs CARRIER WASHER- spoke with on phone, she will be in the hospital soon to discuss further
--- NOTE | 2017-04-05 10:47 | CP.CCUPN ---
CCU Subjective - Physician Review Events Since Last Encounter (Free Text): 04/05/17 10:42 The Patient was seen and examined at the bedside, Medical records reviewed, all clinical/lab/hemodynamic/radiographic data were reviewed and management issues were discussed and formulated, Events reviewed S/p Cardiac arrest for 8 minutes, Copious thick purulent secretions aspirated from the ET tube Orally intubated No neurological improvement Family meeting today to discuss the goal of care On Imipenem 250 mg IVPB Q12 [facility] On Levophed CCU Objective - Vital Signs / Intake & Output Vital Signs (Last 4 hours): Vital Signs Pulse Resp BP Pulse Ox 04/05/17 09:00 83 16 04/05/17 08:46 85 16 103/64 100 04/05/17 08:31 89 11 L 117/83 04/05/17 08:30 88 13 04/05/17 08:16 87 8 L 105/60 99 04/05/17 08:01 90 12 103/67 04/05/17 08:00 90 12 100 04/05/17 07:00 84 10 L 79/45 L 98 Intake and Output (Last 8hrs): Intake & Output 04/04/17 04/05/17 04/05/17 22:59 06:59 14:59 Intake Total 2276.2 1587.6 191.31 Output Total 75 285 20 Balance 2201.2 1302.6 171.31 Weight 207 lb 210 lb 8.663 oz Intake: IV 756.2 381.8 41.91 Intake, IV Amount 1270.0 1205.8 149.4 Right Distal Port PICC 46.2 41.8 4.4 Right PICC 573.8 364.0 45 Right PICC #2 650 800 100 Oral 100 Other 150 Output: Urine 75 285 20 Urethral (Flores) 75 285 20 Other: # Bowel Movements 0 1 - Physical Exam Head: Positive for: Atraumatic, Normocephalic Pupils: Positive for: PERRL Extroacular Muscles: Positive for: EOMI Conjunctiva: Positive for: Normal. Negative for: Injected, Icteric Mouth: Positive for: Moist Mucous Membranes Nose (External): Positive for: Other (NGT in place) Nose (Internal): Positive for: Normal Inspection Neck: Positive for: Normal Range of Motion Respiratory/Chest: Positive for: Rhonchi. Negative for: Clear to Auscultation, Respiratory Distress, Accessory Muscle Use, Wheezes Cardiovascular: Positive for: Murmurs (L sternal border), Normal S1, S2, Irregular Rhythm, Tachycardic. Negative for: Regular Rate and Rhythm Abdomen: Positive for: Normal Bowel Sounds. Negative for: Tenderness, Distention Upper Extremity: Positive for: Normal Inspection, Other (R arm PICC line in place). Negative for: Edema Lower Extremity: Positive for: Edema (+2 to knees b/l L > R), Other (b/l foot dressings c/d/i). Negative for: Normal Inspection Neurological: Positive for: GCS=15, CN II-XII Intact, Speech Normal Skin: Positive for: Warm, Dry, Normal Color Psychiatric: Positive for: Alert, Oriented x 3, Normal Insight, Normal Concentration - Medications Active Medications: Active Medications Generic Name Dose Route Start Last Admin Trade Name Freq PRN Reason Stop Dose Admin Acetylcysteine 4 ml 03/30/17 16:30 04/05/17 08:25 Acetylcysteine 20% INH 4 ml RQ8 [facility] Administration Albuterol/Ipratropium 3 ml 04/01/17 14:00 04/05/17 08:25 Duoneb 3 Mg/0.5 Mg (3 Ml) Ud INH 3 ml RQ6 [facility] Administration Cilostazol 100 mg 03/18/17 18:00 04/05/17 09:37 Pletal PO 100 mg BID [facility] Administration Collagenase 1 gm 03/21/17 10:00 04/05/17 09:45 Santyl TOP 1 applic DAILY [facility] Administration Famotidine 20 mg 04/05/17 10:00 Pepcid PO DAILY [facility] Heparin Sodium (Porcine) 5,000 units 04/01/17 06:00 04/05/17 06:59 Heparin SC 5,000 units Q8 [facility] Administration Imipenem/Cilastatin Sodium 250 100 mls @ 100 mls/hr 04/03/17 22:00 04/05/17 09:29 mg/ Sodium Chloride IVPB 100 mls/hr Q12 [facility] Administration Dexmedetomidine HCl 200 mcg/ 50 mls @ 4.37 mls/hr 04/04/17 11:04 04/05/17 08: 00 Sodium Chloride IV 0.3 mcg/kg/hr TITR PRN 6.56 mls/hr Sedation Titration Protocol 0.2 MCG/KG/HR Norepinephrine Bitartrate 4 mg 254 mls @ 15.24 mls/hr 04/04/17 12:06 07:30 / Dextrose IV 15 mcg/min .[id number] PRN 57.15 mls/hr TITRATE PER MD ORDER Titration Protocol 4 MCG/MIN Sodium Chloride 1,000 mls @ 75 mls/hr 04/05/17 09:45 04/05/17 09:51 Sodium Chloride 0.9% IV Not Given .[id number] [facility] Insulin Aspart 0 unit 04/04/17 18:00 04/05/17 06:59 Novolog SC 3 unit Q6H [facility] Administration Protocol Insulin Glargine 10 unit 03/19/17 10:00 04/05/17 09:26 Lantus SC 10 units DAILY [facility] Administration Mupirocin 0 gm 03/18/17 18:00 04/05/17 09:44 Bactroban Ointment TOP 1 applic BID [facility] Administration Fluticasone/Salmeterol 1 puff 03/29/17 12:30 04/05/17 08:25 Advair Diskus 100/50 IH 1 puff RQD [facility] Administration - Patient Studies Lab Studies: Lab Studies 04/05/17 04/05/17 04/05/17 Range/Units 06:46 06:46 05:46 WBC 5.8 (4.8-10.8) K/uL RBC 2.93 L (4.40-5.90) Mil/uL Hgb 8.1 L (12.0-18.0) g/dL Hct 25.0 L (35.0-51.0) % MCV 85.2 (80.0-94.0) fL MCH 27.7 (27.0-31.0) pg MCHC 32.5 L (33.0-37.0) g/dL RDW 18.6 H (11.5-14.5) % Plt Count 273 (130-400) K/uL MPV 8.8 (7.2-11.7) fL Puncture Site pCO2 (35-45) mm/Hg pO2 (80-100) mm/Hg HCO3 (21-28) mmol/L ABG pH (7.35-7.45) ABG Total CO2 (22-28) mmol/L ABG O2 Saturation (95-98) % ABG Base Excess (-2.0-3.0) mmol/L ABG Hemoglobin (11.7-17.4) g/dL ABG Carboxyhemoglobin (0.5-1.5) % POC ABG HHb (Measured) (0.0-5.0) % ABG Methemoglobin (0.0-3.0) % Cipriano Test ABG Potassium (3.6-5.2) mmol/L A-a O2 Difference mm/Hg Respiratory Index Hgb O2 Saturation (95.0-98.0) % Sodium 124 L (132-148) mmol/l Chloride 95 L (98-107) mmol/L Glucose (75-110) mg/dl Lactate (0.7-2.1) mmol/L Mechanical Rate FiO2 % Tidal Volume PEEP Potassium 4.0 (3.6-5.2) mmol/L Carbon Dioxide 19 L (22-30) mmol/L Anion Gap 14 (10-20) BUN 76 H (9-20) mg/dL Creatinine 2.2 H (0.8-1.5) MG/DL Est GFR ( Amer) 36 Est GFR (Non-Af Amer) 30 POC Glucose (mg/dL) 209 H (65-110) mg/dL Random Glucose 389 H (75-110) mg/dL Calcium 7.4 L (8.6-10.4) mg/dl Phosphorus 4.4 (2.5-4.5) mg/dL Magnesium 2.0 (1.6-2.3) mg/dL Total Bilirubin 1.1 (0.2-1.3) mg/dL AST 26 (17-59) U/L ALT 14 L D (21-72) U/L Alkaline Phosphatase 88 (38-126) U/L Total Protein 5.8 L (6.3-8.3) g/dL Albumin 2.4 L (3.5-5.0) g/dL Globulin 3.4 (2.2-3.9) gm/dL Albumin/Globulin Ratio 0.7 L (1.0-2.1) Arterial Blood Potassium (3.6-5.2) mmol/L 04/05/17 04/05/17 04/04/17 Range/Units 03:05 00:11 16:05 WBC (4.8-10.8) K/uL RBC (4.40-5.90) Mil/uL Hgb (12.0-18.0) g/dL Hct (35.0-51.0) % MCV (80.0-94.0) fL MCH (27.0-31.0) pg MCHC (33.0-37.0) g/dL RDW (11.5-14.5) % Plt Count (130-400) K/uL MPV (7.2-11.7) fL Puncture Site R rad pCO2 23 L (35-45) mm/Hg pO2 78 L (80-100) mm/Hg HCO3 18.2 L (21-28) mmol/L ABG pH 7.42 (7.35-7.45) ABG Total CO2 15.6 L (22-28) mmol/L ABG O2 Saturation 98.8 H (95-98) % ABG Base Excess -8.6 L (-2.0-3.0) mmol/L ABG Hemoglobin 6.9 L (11.7-17.4) g/dL ABG Carboxyhemoglobin 1.2 (0.5-1.5) % POC ABG HHb (Measured) 1.2 (0.0-5.0) % ABG Methemoglobin 1.1 (0.0-3.0) % Cipriano Test Pos ABG Potassium (3.6-5.2) mmol/L A-a O2 Difference 321.0 mm/Hg Respiratory Index 4.1 Hgb O2 Saturation 96.4 (95.0-98.0) % Sodium (132-148) mmol/l Chloride (98-107) mmol/L Glucose (75-110) mg/dl Lactate (0.7-2.1) mmol/L Mechanical Rate 16 FiO2 60.0 % Tidal Volume 500 PEEP 5 Potassium (3.6-5.2) mmol/L Carbon Dioxide (22-30) mmol/L Anion Gap (10-20) BUN (9-20) mg/dL Creatinine (0.8-1.5) MG/DL Est GFR ( Amer) Est GFR (Non-Af Amer) POC Glucose (mg/dL) 188 H 147 H (65-110) mg/dL Random Glucose (75-110) mg/dL Calcium (8.6-10.4) mg/dl Phosphorus (2.5-4.5) mg/dL Magnesium (1.6-2.3) mg/dL Total Bilirubin (0.2-1.3) mg/dL AST (17-59) U/L ALT (21-72) U/L Alkaline Phosphatase (38-126) U/L Total Protein (6.3-8.3) g/dL Albumin (3.5-5.0) g/dL Globulin (2.2-3.9) gm/dL Albumin/Globulin Ratio (1.0-2.1) Arterial Blood Potassium (3.6-5.2) mmol/L 04/04/17 04/04/17 Range/Units 12:58 10:59 WBC (4.8-10.8) K/uL RBC (4.40-5.90) Mil/uL Hgb (12.0-18.0) g/dL Hct (35.0-51.0) % MCV (80.0-94.0) fL MCH (27.0-31.0) pg MCHC (33.0-37.0) g/dL RDW (11.5-14.5) % Plt Count (130-400) K/uL MPV (7.2-11.7) fL Puncture Site Rr pCO2 34 L (35-45) mm/Hg pO2 275 H (80-100) mm/Hg HCO3 20.3 L (21-28) mmol/L ABG pH 7.35 (7.35-7.45) ABG Total CO2 19.8 L (22-28) mmol/L ABG O2 Saturation 99.5 H (95-98) % ABG Base Excess -6.0 L (-2.0-3.0) mmol/L ABG Hemoglobin (11.7-17.4) g/dL ABG Carboxyhemoglobin (0.5-1.5) % POC ABG HHb (Measured) (0.0-5.0) % ABG Methemoglobin (0.0-3.0) % Cipriano Test Pos ABG Potassium 5.5 H (3.6-5.2) mmol/L A-a O2 Difference 396.0 mm/Hg Respiratory Index 1.4 Hgb O2 Saturation (95.0-98.0) % Sodium 134.0 (132-148) mmol/l Chloride 103.0 (98-107) mmol/L Glucose 128 H (75-110) mg/dl Lactate 2.5 H (0.7-2.1) mmol/L Mechanical Rate 16 FiO2 100.0 % Tidal Volume 500 PEEP 5 Potassium (3.6-5.2) mmol/L Carbon Dioxide (22-30) mmol/L Anion Gap (10-20) BUN (9-20) mg/dL Creatinine (0.8-1.5) MG/DL Est GFR ( Amer) Est GFR (Non-Af Amer) POC Glucose (mg/dL) 135 H (65-110) mg/dL Random Glucose (75-110) mg/dL Calcium (8.6-10.4) mg/dl Phosphorus (2.5-4.5) mg/dL Magnesium (1.6-2.3) mg/dL Total Bilirubin (0.2-1.3) mg/dL AST (17-59) U/L ALT (21-72) U/L Alkaline Phosphatase (38-126) U/L Total Protein (6.3-8.3) g/dL Albumin (3.5-5.0) g/dL Globulin (2.2-3.9) gm/dL Albumin/Globulin Ratio (1.0-2.1) Arterial Blood Potassium 5.5 H (3.6-5.2) mmol/L Laboratory Results - last 24 hr 04/04/17 04/04/17 04/04/17 10:59 12:58 16:05 WBC RBC Hgb Hct MCV MCH MCHC RDW Plt Count MPV Puncture Site Rr pCO2 34 L pO2 275 H HCO3 20.3 L ABG pH 7.35 ABG Total CO2 19.8 L ABG O2 Saturation 99.5 H ABG Base Excess -6.0 L ABG Hemoglobin ABG Carboxyhemoglobin POC ABG HHb (Measured) ABG Methemoglobin Cipriano Test Pos ABG Potassium 5.5 H A-a O2 Difference 396.0 Respiratory Index 1.4 Hgb O2 Saturation Sodium 134.0 Chloride 103.0 Glucose 128 H Lactate 2.5 H Mechanical Rate 16 FiO2 100.0 Tidal Volume 500 PEEP 5 Potassium Carbon Dioxide Anion Gap BUN Creatinine Est GFR ( Amer) Est GFR (Non-Af Amer) POC Glucose (mg/dL) 135 H 147 H Random Glucose Calcium Phosphorus Magnesium Total Bilirubin AST ALT Alkaline Phosphatase Total Protein Albumin Globulin Albumin/Globulin Ratio Arterial Blood Potassium 5.5 H 04/05/17 04/05/17 04/05/17 00:11 03:05 05:46 WBC RBC Hgb Hct MCV MCH MCHC RDW Plt Count MPV Puncture Site R rad pCO2 23 L pO2 78 L HCO3 18.2 L ABG pH 7.42 ABG Total CO2 15.6 L ABG O2 Saturation 98.8 H ABG Base Excess -8.6 L ABG Hemoglobin 6.9 L ABG Carboxyhemoglobin 1.2 POC ABG HHb (Measured) 1.2 ABG Methemoglobin 1.1 Cipriano Test Pos ABG Potassium A-a O2 Difference 321.0 Respiratory Index 4.1 Hgb O2 Saturation 96.4 Sodium Chloride Glucose Lactate Mechanical Rate 16 FiO2 60.0 Tidal Volume 500 PEEP 5 Potassium Carbon Dioxide Anion Gap BUN Creatinine Est GFR ( Amer) Est GFR (Non-Af Amer) POC Glucose (mg/dL) 188 H 209 H Random Glucose Calcium Phosphorus Magnesium Total Bilirubin AST ALT Alkaline Phosphatase Total Protein Albumin Globulin Albumin/Globulin Ratio Arterial Blood Potassium 04/05/17 04/05/17 06:46 06:46 WBC 5.8 RBC 2.93 L Hgb 8.1 L Hct 25.0 L MCV 85.2 MCH 27.7 MCHC 32.5 L RDW 18.6 H Plt Count 273 MPV 8.8 Puncture Site pCO2 pO2 HCO3 ABG pH ABG Total CO2 ABG O2 Saturation ABG Base Excess ABG Hemoglobin ABG Carboxyhemoglobin POC ABG HHb (Measured) ABG Methemoglobin Cipriano Test ABG Potassium A-a O2 Difference Respiratory Index Hgb O2 Saturation Sodium 124 L Chloride 95 L Glucose Lactate Mechanical Rate FiO2 Tidal Volume PEEP Potassium 4.0 Carbon Dioxide 19 L Anion Gap 14 BUN 76 H Creatinine 2.2 H Est GFR ( Amer) 36 Est GFR (Non-Af Amer) 30 POC Glucose (mg/dL) Random Glucose 389 H Calcium 7.4 L Phosphorus 4.4 Magnesium 2.0 Total Bilirubin 1.1 AST 26 ALT 14 L D Alkaline Phosphatase 88 Total Protein 5.8 L Albumin 2.4 L Globulin 3.4 Albumin/Globulin Ratio 0.7 L Arterial Blood Potassium Fingerstick Blood Sugar Results: 147 Critical Care Progress Note - Nutrition Nutrition: Nutrition Category Date Time Status NPO Diet [DIET] Diets 04/04/17 Lunch Active Assessment/Plan (1) LETICIA (acute kidney injury) Current Visit: Yes Status: Acute (2) Acute exacerbation of CHF (congestive heart failure) Current Visit: Yes Status: Acute (3) Acute respiratory failure Current Visit: Yes Status: Acute (4) Cardiac arrest Current Visit: Yes Status: Acute (5) Prophylactic measure Current Visit: Yes Status: Acute (6) GI bleed Current Visit: No Status: Acute
--- NOTE | 2017-04-05 10:59 | RAD ---
Chest x-ray single frontal view History: Intubated. Comparison: 04/04/2017 Findings: Endotracheal tube extending into the mid thoracic trachea. NG tube extending into the stomach. Moderate to severe venous congestion with prominent bibasilar airspace opacities and small left pleural effusion. Right hilar prominence. Cardiomegaly. Status post median sternotomy and CABG. Question curvilinear calcification within the left upper abdomen. Degenerative changes in the spine and shoulders. Impression: Endotracheal tube extending into the mid thoracic trachea. NG tube extending into the stomach. Moderate to severe venous congestion with prominent bibasilar airspace opacities and small left pleural effusion. Right hilar prominence. Cardiomegaly. Status post median sternotomy and CABG. Question curvilinear calcification within the left upper abdomen. Degenerative changes in the spine and shoulders.
--- NOTE | 2017-04-05 13:41 | CP.PCM.PN ---
Subjective - Date & Time of Evaluation Date of Evaluation: 04/05/17 Time of Evaluation: 12:00 - Subjective Subjective: events noted. patient is intubated, obtunded. long discussion with the patient 's son. desires comfort care Objective - Vital Signs/Intake and Output Vital Signs (last 24 hours): Temp Pulse Resp BP Pulse Ox 97.3 F L 85 9 L 106/72 100 04/05/17 08:00 04/05/17 11:46 04/05/17 11:46 04/05/17 11:46 04/05/17 11:46 Intake and Output: 04/05/17 04/05/17 06:59 18:59 Intake Total 2847.5 872.80 Output Total 360 90 Balance 2487.5 782.80 - Medications Medications: Current Medications Acetylcysteine (Acetylcysteine 20%) 4 ml INH RQ8 [facility] Last Admin: 04/05/17 08:25 Dose: 4 ml Albuterol/Ipratropium (Duoneb 3 Mg/0.5 Mg (3 Ml) Ud) 3 ml INH RQ6 [facility] Last Admin: 04/05/17 13:20 Dose: 3 ml Cilostazol (Pletal) 100 mg PO BID [facility] Last Admin: 04/05/17 09:37 Dose: 100 mg Collagenase (Santyl) 1 gm TOP DAILY [facility] Last Admin: 04/05/17 09:45 Dose: 1 applic Famotidine (Pepcid) 20 mg PO DAILY [facility] Last Admin: 04/05/17 11:26 Dose: Not Given Heparin Sodium (Porcine) (Heparin) 5,000 units SC Q8 [facility] Last Admin: 04/05/17 06:59 Dose: 5,000 units Imipenem/Cilastatin Sodium 250 (mg/ Sodium Chloride) 100 mls @ 100 mls/hr IVPB Q12 [facility] Last Admin: 04/05/17 09:29 Dose: 100 mls/hr Dexmedetomidine HCl 200 mcg/ (Sodium Chloride) 50 mls @ 4.37 mls/hr IV TITR PRN ; Protocol; 0.2 MCG/KG/HR PRN Reason: Sedation Last Admin: 04/05/17 13:17 Dose: 0.3 mcg/kg/hr, 6.56 mls/hr Norepinephrine Bitartrate 4 mg (/ Dextrose) 254 mls @ 15.24 mls/hr IV .[id number] PRN; Protocol; 4 MCG/MIN PRN Reason: TITRATE PER MD ORDER Last Admin: 04/05/17 11:24 Dose: 15 mcg/min, 57.15 mls/hr Sodium Chloride (Sodium Chloride 0.9%) 1,000 mls @ 75 mls/hr IV .[id number] [facility] Last Admin: 04/05/17 09:51 Dose: Not Given Insulin Aspart (Novolog) 0 unit SC Q6H [facility] PRN Reason: Protocol Last Admin: 04/05/17 12:12 Dose: Not Given Insulin Glargine (Lantus) 10 unit SC DAILY [facility] Last Admin: 04/05/17 09:26 Dose: 10 units Mupirocin (Bactroban Ointment) 0 gm TOP BID [facility] Last Admin: 04/05/17 09:44 Dose: 1 applic Fluticasone/Salmeterol (Advair Diskus 100/50) 1 puff IH RQD [facility] Last Admin: 04/05/17 08:25 Dose: 1 puff - Labs Labs: 04/05/17 06:46 04/05/17 06:46 PT 15.4 SECONDS (9.7-12.2) H 03/27/17 06:31 INR 1.4 03/27/17 06:31 APTT 32 SECONDS (21-34) 03/26/17 06:03 - Constitutional Appears: Toxic - Eye Exam Eye Exam: Conjunctival injection, Periorbital swelling - ENT Exam ENT Exam: Mucous Membranes Dry - Neck Exam Neck Exam: absent: Lymphadenopathy - Respiratory Exam Respiratory Exam: Decreased Breath Sounds - Cardiovascular Exam Cardiovascular Exam: Irregular Rhythm - GI/Abdominal Exam GI & Abdominal Exam: Hypoactive Bowel Sounds - Rectal Exam Rectal Exam: Deferred - Extremities Exam Extremities Exam: Pedal Edema - Skin Skin Exam: Normal Color Assessment and Plan (1) Acute exacerbation of CHF (congestive heart failure) Assessment & Plan: agree with comfort care. condition is grave. sons are in agreement. palliative care will be notified. Status: Acute (2) Anemia Status: Acute (3) A-fib Status: Acute (4) Aortic stenosis Status: Acute
[2017-04-05] MEDS ORDERED: Dextrose 50% SYRINGE Inj (50 ml) IV STA (18:35)
[2017-04-06] MEDS ORDERED: Dextrose 50% SYRINGE Inj (50 ml) IV STA ×2 (00:10→05:50)
[2017-04-06] MEDS: (Novolog) Insulin Aspart, Recombinant 100 u/ml 10 ml vial SC SCH ×5 (00:26→23:31)
[2017-04-06] MEDS: Acetylcysteine 20% Inhal Soln (4ml) INH SCH ×2 (01:38→07:36)
[2017-04-06] MEDS: Albuterol-Ipratrop 3 mg / 0.5 (3 ml) UD INH SCH ×3 (01:38→13:22)
[2017-04-06] MEDS: Dexmedetomidine Hydrochloride 200 MCG in Sodium Chloride 0.9% 48 ML IV PRN ×3 (06:10→21:34)
[2017-04-06] MEDS: Fluticasone-Salmeterol 100-50mcg Diskus IH SCH (07:34)
[2017-04-06] MEDS: Cilostazol 100 mg Tab UD PO SCH ×2 (09:32→17:54)
[2017-04-06] MEDS: Collagenase 250 Units/gm Ointment(30 gm) TOP SCH (09:40)
--- NOTE | 2017-04-06 15:47 | CP.CCUPN ---
CCU Subjective - Physician Review Events Since Last Encounter (Free Text): 04/06/17 15:46 Patient seen and examined in the intensive care unit. Case discussed with STAFF in the morning. Remained intubated on ventilatory support Status post cardiac arrest For terminal extubation. CCU Objective - Vital Signs / Intake & Output Vital Signs (Last 4 hours): Vital Signs Temp Pulse Resp BP Pulse Ox 04/06/17 15:01 96 H 24 99/67 L 99 04/06/17 15:00 87 18 100 04/06/17 14:47 82 17 111/67 100 04/06/17 14:32 81 16 122/69 100 04/06/17 14:30 85 19 100 04/06/17 14:16 82 21 119/64 100 04/06/17 14:01 80 18 114/72 100 04/06/17 14:00 80 16 100 04/06/17 13:46 99 H 17 113/63 100 04/06/17 13:32 77 17 106/61 100 04/06/17 13:30 150 H 19 100 04/06/17 13:17 78 16 113/65 100 04/06/17 13:01 80 19 106/66 100 04/06/17 13:00 79 16 100 04/06/17 12:46 78 16 103/67 100 04/06/17 12:31 78 17 114/74 98 04/06/17 12:30 79 16 100 04/06/17 12:16 79 16 111/67 100 04/06/17 12:01 79 17 112/69 99 04/06/17 12:00 96.5 F L 81 16 99 Intake and Output (Last 8hrs): Intake & Output 04/06/17 04/06/17 04/06/17 06:59 14:59 22:59 Intake Total 1207.3 1176.9 84.1 Output Total 950 895 55 Balance 257.3 281.9 29.1 Weight 217 lb 6.4 oz Intake: IV 312 300 Intake, IV Amount 895.3 816.9 84.1 Right Distal Port PICC 52.8 59.4 6.6 Right PICC 487.5 337.5 37.5 Right PICC #2 355 420 40 Oral 0 0 Tube Feeding 0 60 Output: Urine 950 895 55 Urethral (Flores) 950 895 55 Other: # Bowel Movements 0 0 0 - Physical Exam Head: Positive for: Atraumatic, Normocephalic Pupils: Positive for: PERRL Extroacular Muscles: Positive for: EOMI Conjunctiva: Positive for: Normal. Negative for: Injected, Icteric Mouth: Positive for: Moist Mucous Membranes Nose (External): Positive for: Other (NGT in place) Nose (Internal): Positive for: Normal Inspection Neck: Positive for: Normal Range of Motion Respiratory/Chest: Positive for: Rhonchi. Negative for: Clear to Auscultation, Respiratory Distress, Accessory Muscle Use, Wheezes Cardiovascular: Positive for: Murmurs (L sternal border), Normal S1, S2, Irregular Rhythm, Tachycardic. Negative for: Regular Rate and Rhythm Abdomen: Positive for: Normal Bowel Sounds. Negative for: Tenderness, Distention Upper Extremity: Positive for: Normal Inspection, Other (R arm PICC line in place). Negative for: Edema Lower Extremity: Positive for: Edema (+2 to knees b/l L > R), Other (b/l foot dressings c/d/i). Negative for: Normal Inspection Neurological: Positive for: GCS=15, CN II-XII Intact, Speech Normal Skin: Positive for: Warm, Dry, Normal Color Psychiatric: Positive for: Alert, Oriented x 3, Normal Insight, Normal Concentration - Medications Active Medications: Active Medications Generic Name Dose Route Start Last Admin Trade Name Freq PRN Reason Stop Dose Admin Acetylcysteine 4 ml 03/30/17 16:30 04/06/17 07:36 Acetylcysteine 20% INH 4 ml RQ8 [facility] Administration Albuterol/Ipratropium 3 ml 04/01/17 14:00 04/06/17 13:22 Duoneb 3 Mg/0.5 Mg (3 Ml) Ud INH Not Given RQ6 [facility] Cilostazol 100 mg 03/18/17 18:00 04/06/17 09:32 Pletal PO 100 mg BID [facility] Administration Collagenase 1 gm 03/21/17 10:00 04/06/17 09:40 Santyl TOP 1 applic DAILY [facility] Administration Famotidine 20 mg 04/05/17 11:00 04/06/17 09:32 Pepcid PO 20 mg DAILY [facility] Administration Heparin Sodium (Porcine) 5,000 units 04/01/17 06:00 04/06/17 13:20 Heparin SC 5,000 units Q8 [facility] Administration Imipenem/Cilastatin Sodium 250 100 mls @ 100 mls/hr 04/03/17 22:00 04/06/17 09:26 mg/ Sodium Chloride IVPB 100 mls/hr Q12 [facility] Administration Dexmedetomidine HCl 200 mcg/ 50 mls @ 4.37 mls/hr 04/04/17 11:04 04/06/17 14: 06 Sodium Chloride IV 0.3 mcg/kg/hr TITR PRN 6.56 mls/hr Sedation Administration Protocol 0.2 MCG/KG/HR Dextrose 500 mls @ 40 mls/hr 04/06/17 00:12 04/06/17 00:22 Dextrose 10% In Water IV 40 mls/hr .[id number] [facility] Administration Norepinephrine Bitartrate 8 mg 258 mls @ 7.74 mls/hr 04/06/17 01:15 04/06/17 10:52 / Dextrose IV 20 mcg/min .Q24H PRN 38.7 mls/hr TITRATE PER MD ORDER Administration Protocol 4 MCG/MIN Insulin Aspart 0 unit 04/04/17 18:00 04/06/17 13:11 Novolog SC Not Given [facility] Protocol Mupirocin 0 gm 03/18/17 18:00 04/06/17 09:40 Bactroban Ointment TOP 1 applic BID [facility] Administration Fluticasone/Salmeterol 1 puff 03/29/17 12:30 04/06/17 07:34 Advair Diskus 100/50 IH Not Given RQD [facility] - Patient Studies Lab Studies: Microbiology Studies 04/04/17 15:00 MRSA Culture (Admit) - Final Naris MRSA NOT DETECTED Lab Studies 04/06/17 04/06/17 04/06/17 Range/Units 12:09 10:19 06:54 POC Glucose (mg/dL) 92 75 93 (65-110) mg/dL 04/06/17 04/06/17 04/06/17 Range/Units 05:28 00:57 00:09 POC Glucose (mg/dL) 46 L 80 52 L (65-110) mg/dL 04/05/17 04/05/17 Range/Units 19:05 18:01 POC Glucose (mg/dL) 96 71 (65-110) mg/dL Laboratory Results - last 24 hr 04/05/17 04/05/17 04/06/17 18:01 19:05 00:09 POC Glucose (mg/dL) 71 96 52 L 04/06/17 04/06/17 04/06/17 00:57 05:28 06:54 POC Glucose (mg/dL) 80 46 L 93 04/06/17 04/06/17 10:19 12:09 POC Glucose (mg/dL) 75 92 Fingerstick Blood Sugar Results: 147 Critical Care Progress Note - Nutrition Nutrition: Nutrition Category Date Time Status NPO Diet [DIET] Diets 04/04/17 Lunch Active Assessment/Plan (1) Cough Current Visit: Yes Status: Acute (2) Acute exacerbation of CHF (congestive heart failure) Current Visit: Yes Status: Acute (3) A-fib Current Visit: No Status: Acute (4) GI bleed Current Visit: No Status: Acute
--- NOTE | 2017-04-06 16:01 | CP.PCM.PN ---
Subjective - Date & Time of Evaluation Date of Evaluation: 04/06/17 Time of Evaluation: 13:40 - Subjective Subjective: 71 y/o male seen at bedside for B/L TMA sites. Patient appears in NAD and AAOx3. Pt denies of any acute overnight events. Pt denies of any pain or complications to bilateral LE. Pt denies of any recent F/N/V/C/SOB. Objective - Vital Signs/Intake and Output Vital Signs (last 24 hours): Temp Pulse Resp BP Pulse Ox 96.5 F L 96 H 24 99/67 L 99 04/06/17 12:00 04/06/17 15:01 04/06/17 15:01 04/06/17 15:01 04/06/17 15:01 Intake and Output: 04/06/17 04/06/17 06:59 18:59 Intake Total 2084.3 1261.0 Output Total 1105 950 Balance 979.3 311.0 - Medications Medications: Current Medications Acetylcysteine (Acetylcysteine 20%) 4 ml INH RQ8 [facility] Last Admin: 04/06/17 07:36 Dose: 4 ml Albuterol/Ipratropium (Duoneb 3 Mg/0.5 Mg (3 Ml) Ud) 3 ml INH RQ6 [facility] Last Admin: 04/06/17 13:22 Dose: Not Given Cilostazol (Pletal) 100 mg PO BID [facility] Last Admin: 04/06/17 09:32 Dose: 100 mg Collagenase (Santyl) 1 gm TOP DAILY [facility] Last Admin: 04/06/17 09:40 Dose: 1 applic Famotidine (Pepcid) 20 mg PO DAILY [facility] Last Admin: 04/06/17 09:32 Dose: 20 mg Heparin Sodium (Porcine) (Heparin) 5,000 units SC Q8 [facility] Last Admin: 04/06/17 13:20 Dose: 5,000 units Imipenem/Cilastatin Sodium 250 (mg/ Sodium Chloride) 100 mls @ 100 mls/hr IVPB Q12 [facility] Last Admin: 04/06/17 09:26 Dose: 100 mls/hr Dexmedetomidine HCl 200 mcg/ (Sodium Chloride) 50 mls @ 4.37 mls/hr IV TITR PRN ; Protocol; 0.2 MCG/KG/HR PRN Reason: Sedation Last Admin: 04/06/17 14:06 Dose: 0.3 mcg/kg/hr, 6.56 mls/hr Dextrose (Dextrose 10% In Water) 500 mls @ 40 mls/hr IV .[id number] [facility] Last Admin: 04/06/17 00:22 Dose: 40 mls/hr Norepinephrine Bitartrate 8 mg (/ Dextrose) 258 mls @ 7.74 mls/hr IV .Q24H PRN ; Protocol; 4 MCG/MIN PRN Reason: TITRATE PER MD ORDER Last Admin: 04/06/17 10:52 Dose: 20 mcg/min, 38.7 mls/hr Insulin Aspart (Novolog) 0 unit SC Q6H [facility] PRN Reason: Protocol Last Admin: 04/06/17 13:11 Dose: Not Given Mupirocin (Bactroban Ointment) 0 gm TOP BID [facility] Last Admin: 04/06/17 09:40 Dose: 1 applic Fluticasone/Salmeterol (Advair Diskus 100/50) 1 puff IH RQD [facility] Last Admin: 04/06/17 07:34 Dose: Not Given - Labs Labs: 04/05/17 06:46 04/05/17 06:46 PT 15.4 SECONDS (9.7-12.2) H 03/27/17 06:31 INR 1.4 03/27/17 06:31 APTT 32 SECONDS (21-34) 03/26/17 06:03 - Constitutional Appears: Well, Non-toxic, No Acute Distress - Extremities Exam Additional comments: VASC: DP/PT pulses are non-palpable, CFT > 5sec to dorsal and plantar flaps, temperature gradient is cool to cool proximal to distal, no edema noted DERM: Right TMA site with eschar at medial aspect of incision and hyerpkeratotic tissue at lateral portion, no active drainage, no probe to bone, no malodor. Left TMA site with no dehiscence, no active drainage, skin edges with minimal hyperkeratotic tissue. NEURO: protective sensation grossly diminished ORTHO: TMA noted bilaterally - Neurological Exam Neurological Exam: Alert, Oriented x3 - Psychiatric Exam Psychiatric exam: Normal Affect, Normal Mood Assessment and Plan - Assessment and Plan (Free Text) Assessment: 71 y/o male seen at bedside with B/L TMA Plan: Patient evaluated and chart reviewed Patient discussed in details with attending Dr. Barnes labs and vitals reviewed; afebrile, WBC @ 5.8 (04/05) R TMA dressed with bactroban, santyl, DSD L TMA dressed with DSD no surgical intervention planned at this time. will continue to follow while in hospital.
--- NOTE | 2017-04-06 20:15 | CP.PCM.PN ---
Subjective - Date & Time of Evaluation Date of Evaluation: 04/06/17 Time of Evaluation: 10:00 - Subjective Subjective: Medical Attending Note Follow-up: Patient seen, examined, intubated, sedated. Unable to review ROS given patient' s clinical condition. Spoke briefly with patient's at bedside. Family has come to agree on terminal extubation today. Family flying in from [place]. Discussed with patient's primary nurse and ICU, patient for terminal extubation. Objective - Vital Signs/Intake and Output Vital Signs (last 24 hours): Temp Pulse Resp BP Pulse Ox 95.8 F L 84 13 95/59 L 100 04/06/17 16:00 04/06/17 19:17 04/06/17 19:17 04/06/17 19:17 04/06/17 19:17 Intake and Output: 04/06/17 04/07/17 18:59 06:59 Intake Total 1831.3 188.4 Output Total 1325 50 Balance 506.3 138.4 - Medications Medications: Current Medications Acetylcysteine (Acetylcysteine 20%) 4 ml INH RQ8 [facility] Last Admin: 04/06/17 07:36 Dose: 4 ml Albuterol/Ipratropium (Duoneb 3 Mg/0.5 Mg (3 Ml) Ud) 3 ml INH RQ6 [facility] Last Admin: 04/06/17 13:22 Dose: Not Given Cilostazol (Pletal) 100 mg PO BID [facility] Last Admin: 04/06/17 17:54 Dose: 100 mg Collagenase (Santyl) 1 gm TOP DAILY [facility] Last Admin: 04/06/17 09:40 Dose: 1 applic Famotidine (Pepcid) 20 mg PO DAILY [facility] Last Admin: 04/06/17 09:32 Dose: 20 mg Heparin Sodium (Porcine) (Heparin) 5,000 units SC Q8 [facility] Last Admin: 04/06/17 13:20 Dose: 5,000 units Imipenem/Cilastatin Sodium 250 (mg/ Sodium Chloride) 100 mls @ 100 mls/hr IVPB Q12 [facility] Last Admin: 04/06/17 09:26 Dose: 100 mls/hr Dexmedetomidine HCl 200 mcg/ (Sodium Chloride) 50 mls @ 4.37 mls/hr IV TITR PRN ; Protocol; 0.2 MCG/KG/HR PRN Reason: Sedation Last Admin: 04/06/17 14:06 Dose: 0.3 mcg/kg/hr, 6.56 mls/hr Dextrose (Dextrose 10% In Water) 500 mls @ 40 mls/hr IV .[id number] [facility] Last Admin: 04/06/17 18:07 Dose: Not Given Norepinephrine Bitartrate 8 mg (/ Dextrose) 258 mls @ 7.74 mls/hr IV .Q24H PRN ; Protocol; 4 MCG/MIN PRN Reason: TITRATE PER MD ORDER Last Titration: 04/06/17 20:00 Dose: 15 mcg/min, 29.02 mls/hr Insulin Aspart (Novolog) 0 unit SC Q6H [facility] PRN Reason: Protocol Last Admin: 04/06/17 18:29 Dose: Not Given Mupirocin (Bactroban Ointment) 0 gm TOP BID [facility] Last Admin: 04/06/17 17:54 Dose: 1 applic Fluticasone/Salmeterol (Advair Diskus 100/50) 1 puff IH RQD [facility] Last Admin: 04/06/17 07:34 Dose: Not Given - Labs Labs: 04/05/17 06:46 04/05/17 06:46 PT 15.4 SECONDS (9.7-12.2) H 03/27/17 06:31 INR 1.4 03/27/17 06:31 APTT 32 SECONDS (21-34) 03/26/17 06:03 - Constitutional Appears: Toxic, Chronically Ill - Head Exam Head Exam: NORMAL INSPECTION - ENT Exam ENT Exam: Mucous Membranes Moist - Respiratory Exam Respiratory Exam: Rales, Rhonchi. absent: Respiratory Distress - Cardiovascular Exam Cardiovascular Exam: REGULAR RHYTHM, +S1, +S2 - GI/Abdominal Exam GI & Abdominal Exam: Distended, Soft, Hypoactive Bowel Sounds. absent: Firm, Guarding, Rigid, Tenderness, Rebound - Extremities Exam Extremities Exam: Joint Swelling, Pedal Edema - Neurological Exam Neurological Exam: Altered - Skin Skin Exam: Rash, Warm. absent: Mottled Additional comments: edematous upper, lower extrematous, and distended Assessment and Plan (1) Acute respiratory failure Status: Acute (2) Cardiac arrest Status: Acute (3) Acute exacerbation of CHF (congestive heart failure) Status: Acute (4) Acute renal insufficiency Status: Acute (5) Pneumonia Status: Acute (6) Severe aortic stenosis Status: Chronic (7) Candidiasis of esophagus Status: Acute (8) Esophageal candidiasis Status: Chronic (9) Ileus Status: Resolved (10) Peripheral vascular disease Status: Chronic (11) Anemia Status: Acute (12) Ascites Status: Acute (13) Anemia Status: Chronic (14) Prophylactic measure Status: Acute - Assessment and Plan (Free Text) Assessment: Assessment and Plan (1) Acute respiratory failure Assessment & Plan: 04/06: For terminal extubation; Discussed with patient's and ICU. 04/05: Patient is intubated; Patient is currently on primaxin IV (since 03/22/17) to cover for pneumonia and prior UTI infection 04/04: LATRINE CLEANER and Code Blue: Requiring intubation; patient was full code at the time and discussed and reconfirmed with at bedside at time of LATRINE CLEANER; patient noted to have many secretions likely secondary to pneumoni Pulmonary (Dr. Padilla) on the case-->help appreciated Status: Acute (2) Cardiac arrest Assessment & Plan: 04/06: For terminal extubation; Discussed with patient's and ICU. 04/05: Patient is currently on pressor this morning and mild sedation 04/04: LATRINE CLEANER and Code blue; requiring intubation and requiring 3 EPIs and ROSC returned and confirmed with doppler; Cardiology informed Status: Acute (3) Acute exacerbation of CHF (congestive heart failure) Assessment & Plan: 04/06 Family refused dialysis. Want comfort measure * Consult: Dr. Canales (Cardiology) on board-->help appreciated * Echocardiogram (03/21/17): EF: 25%, septal motion consistent with post operative state. Global hypokinesis of the left ventricle. Grade II- pseudonormal filling. Severe valvular aortic stenosis. Mitral regurgitation is moderate. Severe pulmonary hypertension * Per cardiology, patient is not a surgical candidate for aortic stenosis * Patient has gained about 40lbs since admission. * Unable to given heart failure medications including beta-darrel, diuretic, and juan jose/arb secondary to hypotension (SBP:80-90s) during admission Status: Acute (4) Acute renal insufficiency Assessment & Plan: 04/06 Family refused dialysis. Want comfort measures 04/05: Discussed with Dr. Reynolds (nephrology) will discuss with patient's regarding starting dialysis Consult: Dr. Reynolds (nephrology) on the case help appreciated Patient's Cr: 2.2 with associated GFR: 30-40s Discussed with ICU nurse today, patient is not making urine and allen has been flushed no return. Pending decision for dialysis. Patient has gained 40lbs of fluid since start of admission; contributing factors including ischemic cardiomyopathy, and severe aortic stenosis Status: Acute (5) Pneumonia Assessment & Plan: Primaxin IV (active since 03/22/17) CT Chest (04/02/17): small bilateral pleural effusions and associated compressive consolidations. perihilar infiltrates. Recommend follow-up to resolution. Right sided PICC. Cardiomeglay. Dense vavular and coronary artery calcifications. prevascular and mediastinal lymph nodes measuring up to 14 mm in short axis. Upper abdomen reveal diffuse ascites. Cholecystectomy clips Status: Acute (6) Severe aortic stenosis Assessment & Plan: Patient is not candidate for intervention for aortic stenosis per cardiology Status: Chronic (7) Candidiasis of esophagus Assessment & Plan: GI (Dr. Ag) on board-->help appreciated Fungual psuedohyphae and yeast, morphologically consistent with tony are present. Squamous and glandular cells with reactive changes. Scattered neutrophils Patient has completed 14 days Iv Diflucan. Status: Acute (8) Esophageal candidiasis Status: Chronic (9) Ileus Assessment & Plan: 04/05: patient has had multiple bowel movements today; Discontinued bowel regimen ; given per conversation with ICU nurse he is having multiple bowel movements General surgery (Dr. Lara) on board-->help appreciated Abdominal obstructive series (04/03/17): no complete or hgh grade bowel obstruction suspect. small bowel loops are mixed in character some are normal calier some are borderline increased to 4mm. No complete or high grade small bowel obstruction suggestion. Cannot exclude intermittent or mild partial small bowel obsutrction. Righr colonic-hepatic flexure moderate stool retention Status: Resolved (10) Peripheral vascular disease Assessment & Plan: 04/05: pletal 100mg PO bid; patient is currently off Aspirin/Plavix/Xarelto secondary to workup GI source of anemia Status: Chronic (11) Anemia Assessment & Plan: 04/05 Patient's hemoglobin: 8.1; continue H/H Consult: Dr. Ag (GI ceramic maker demonstrator)--> help appreciated Patient has underwent EGD on 03/21/17--> monilial esophagitis; small hiatus hernia; erosive gastropathy, normal examined duodenum Patient is currently off Xarelto for known history of atrial fibrillation Patient is off Aspirin for known history of ischemic cardiomyopathy, peripheral vascular disease Patient is pending colonoscopy when cardiac velasquez stable Patient has required PRBC transfusion (4 total) during this hospitalization On DVT ppx Status: Acute (12) Ascites Assessment & Plan: 04/06: Family does not want dialysis. 04/05 patient has ascites likely secondary to extensive cardiac history including ischemic cardiomyopathy and severe aortic stenosis and acute renal insufficiency Consult: Dr Ag (GI) on board-->help appreciated patient has underwent paracentesis during this hospitalization; has had 2 Liters of fluid removed Status: Acute (13) Anemia Status: Chronic (14) Prophylactic measure Assessment & Plan: 04/06 patient for terminal extubation today; comfort measures Pepcid 20mg PO bid for GI ppx Heparin 5000 units subq 8 hours for DVT ppx Contraindications to SCDS; patient has peripheral vascular disease Status: Acute
[2017-04-07] MEDS: Albuterol-Ipratrop 3 mg / 0.5 (3 ml) UD INH SCH ×2 (02:19→07:35)
[2017-04-07] MEDS: Acetylcysteine 20% Inhal Soln (4ml) INH SCH ×3 (02:19→15:58)
[2017-04-07] MEDS: (Novolog) Insulin Aspart, Recombinant 100 u/ml 10 ml vial SC SCH ×3 (05:30→17:54)
[2017-04-07] MEDS: Fluticasone-Salmeterol 100-50mcg Diskus IH SCH (07:34)
--- NOTE | 2017-04-07 08:01 | CP.CCUPN ---
<Lydia Grullon - Last Filed: 04/07/17 14:29> CCU Subjective - Physician Review Subjective (Free Text): 04/07/17 14:29 Patient seen and examined at bedside in the AM. Patient is alert but not oriented. CCU Objective - Vital Signs / Intake & Output Vital Signs (Last 4 hours): Vital Signs Pulse Resp BP Pulse Ox 04/07/17 07:01 94 H 17 83/49 L 100 04/07/17 07:00 93 H 17 100 04/07/17 06:46 95 H 19 88/48 L 100 04/07/17 06:31 97 H 20 87/52 L 99 04/07/17 06:30 96 H 18 99 04/07/17 06:16 96 H 19 89/51 L 100 04/07/17 06:01 99 H 21 90/58 L 100 04/07/17 06:00 99 H 19 100 04/07/17 05:53 104 H 19 94/62 L 97 04/07/17 05:31 101 H 19 87/52 L 95 04/07/17 05:30 97 H 21 94 L 04/07/17 05:16 98 H 20 89/54 L 94 L 04/07/17 05:01 97 H 20 91/48 L 93 L 04/07/17 05:00 100 H 19 94 L 04/07/17 04:46 102 H 17 83/51 L 94 L 04/07/17 04:31 97 H 19 86/51 L 94 L 04/07/17 04:30 97 H 19 94 L 04/07/17 04:17 119 H 19 89/53 L 93 L Intake and Output (Last 8hrs): Intake & Output 04/06/17 04/07/17 04/07/17 22:59 06:59 14:59 Intake Total 1138.1 562.4 125.3 Output Total 705 350 25 Balance 433.1 212.4 100.3 Intake: IV 446 55 Intake, IV Amount 632.1 562.4 70.3 Right Distal Port PICC 44.0 17.6 2.2 Right PICC 268.1 224.8 28.1 Right PICC #2 320 320 40 Oral 0 0 0 Tube Feeding 60 0 0 Output: Urine 705 350 25 Urethral (Allen) 705 350 25 Other: # Bowel Movements 0 0 0 - Physical Exam Physical Exam Limitations: Positive for: Altered Mental Status (patient alert but not oriented ) Head: Positive for: Atraumatic, Normocephalic Pupils: Positive for: PERRL Extroacular Muscles: Positive for: EOMI Conjunctiva: Positive for: Normal. Negative for: Injected, Icteric Mouth: Positive for: Moist Mucous Membranes Nose (External): Positive for: Other (NGT in place) Nose (Internal): Positive for: Normal Inspection Neck: Positive for: Normal Range of Motion Respiratory/Chest: Positive for: Respiratory Distress (patient on bipap), Rhonchi. Negative for: Clear to Auscultation, Accessory Muscle Use, Wheezes Cardiovascular: Positive for: Murmurs (L sternal border), Normal S1, S2, Irregular Rhythm, Tachycardic. Negative for: Regular Rate and Rhythm Abdomen: Positive for: Normal Bowel Sounds. Negative for: Tenderness, Distention Upper Extremity: Positive for: Normal Inspection, Other (R arm PICC line in place). Negative for: Edema Lower Extremity: Positive for: Edema (+3 to knees b/l L > R), Other (b/l foot dressings c/d/i). Negative for: Normal Inspection Neurological: Positive for: GCS=15, CN II-XII Intact, Speech Normal Skin: Positive for: Warm, Dry, Normal Color Psychiatric: Positive for: Alert. Negative for: Oriented x 3 - Medications Active Medications: Active Medications Generic Name Dose Route Start Last Admin Trade Name Freq PRN Reason Stop Dose Admin Acetylcysteine 4 ml 03/30/17 16:30 04/07/17 07:35 Acetylcysteine 20% INH 4 ml RQ8 [facility] Administration Cilostazol 100 mg 03/18/17 18:00 04/06/17 17:54 Pletal PO 100 mg BID AWAIS Administration Collagenase 1 gm 03/21/17 10:00 04/06/17 09:40 Santyl TOP 1 applic DAILY AWAIS Administration Famotidine 20 mg 04/05/17 11:00 04/06/17 09:32 Pepcid PO 20 mg DAILY A[facility]IS Administration Imipenem/Cilastatin Sodium 250 100 mls @ 100 mls/hr 04/03/17 22:00 04/06/17 21:15 mg/ Sodium Chloride IVPB Not Given Q12 A[facility]IS Dexmedetomidine HCl 200 mcg/ 50 mls @ 4.37 mls/hr 04/04/17 11:04 04/07/17 07: 11 Sodium Chloride IV 0 mcg/kg/hr TITR PRN 0 mls/hr Sedation Titration Protocol 0.2 MCG/KG/HR Dextrose 500 mls @ 40 mls/hr 04/06/17 00:12 04/07/17 01:37 Dextrose 10% In Water IV 40 mls/hr .[id number] [facility] Administration Norepinephrine Bitartrate 8 mg 258 mls @ 7.74 mls/hr 04/06/17 01:15 04/07/17 07:00 / Dextrose IV 10 mcg/min .Q24H PRN 19.35 mls/hr TITRATE PER MD ORDER Titration Protocol 4 MCG/MIN Insulin Aspart 0 unit 04/04/17 18:00 04/07/17 05:30 Novolog SC Not Given Q6H [facility] Protocol Mupirocin 0 gm 03/18/17 18:00 04/06/17 17:54 Bactroban Ointment TOP 1 applic BID [facility] Administration Fluticasone/Salmeterol 1 puff 03/29/17 12:30 04/07/17 07:34 Advair Diskus 100/50 IH Not Given RQD [facility] - Patient Studies Lab Studies: Lab Studies 04/07/17 04/06/17 04/06/17 Range/Units 05:24 23:30 17:55 POC Glucose (mg/dL) 136 H 131 H 120 H (65-110) mg/dL 04/06/17 04/06/17 Range/Units 12:09 10:19 POC Glucose (mg/dL) 92 75 (65-110) mg/dL Laboratory Results - last 24 hr 04/06/17 04/06/17 04/06/17 10:19 12:09 17:55 POC Glucose (mg/dL) 75 92 120 H 04/06/17 04/07/17 23:30 05:24 POC Glucose (mg/dL) 131 H 136 H Fingerstick Blood Sugar Results: 147 Review of Systems - Review of Systems Systems not reviewed;Unavailable: Respiratory Distress (alert but not oriented) Review of Systems: alert but not oriented Patient on bipap Critical Care Progress Note - Nutrition Nutrition: Nutrition Category Date Time Status NPO Diet [DIET] Diets 04/04/17 Lunch Active Assessment/Plan - Assessment and Plan (Free Text) Assessment: 71 M PMHx of CAD, CABG, AFib, DM w/ b/l toe amp, PVD, HTN, chronic anemia admitted for acute on chronic anemia, guaic positive and hypotension. Plan: Neuro: - Patient was extubated 04/06/17 - Patient is alert - Patient is not oriented x3 Pulm: - Patient was extubated 04/06/17 - Patient currently on BiPap - Chest X-ray (03/27/17): Bilateral perihilar opacity, left greater than right. Congestive change. No pleural effusion. Nonspecific finding. Possible congestive - - heart failure/pulmonary edema. Rule out pneumonia. - Pillow to elevate scrotum ordered 03/31/17 - Chest CT 04/02/17- small b/l pleural effusions and associated compressive consolidations; perihilar infiltrates. cardiomegaly; valvular and coronary artery calcifications; diffuse ascites - Acute on chronic cough, acute bronchitis, suspected pneumonia CV: - Hypotensive - Patient started on Norepinephrine 4mg IV - Consult: Dr. Canales (Cardiology) on board-->help appreciated * Patient is not a candidate for valve replacement -Chronic systolic congestive heart failure (EF 30-35%, last echo 11/22/2016). -repeat Echo: LV systolic function is severely impaired; EF 25-30%; septal motion consistent with postop state; global hypokinesis of LV; transmitral Doppler flow pattern is GRad II pseudonormal filling dynamics; severe valvular ; MR is moderate; severe pulmonary HTN -Amiodarone 200mg PO Daily - Monitor daily weights - History of Atrial Fibrillation - Patient is off Xarelto secondary to GI workup r/o bleed - Off Nadir/arb/statin - Patient is on Pletal 100mg PO BID Heme: - Acute anemia, likely due to acute blood loss - Stable - H/H (04/04): 8.8/26.8; H/H (04/03) 9.1/28; (04/02) 8.7/27.5; (04/01) 8.8/27.2; (03/31) 9.4/29.8; (03/28): 9.6/29.3; H/H (03/27): 9.6/30.2; H/H (03/26): 8.2/25.9 - Iron: 36, TIBC: 285, %14, Ferritin: 48.5 - Patient has had 3 units of PRBC transfused during hospitalization - Ferrous sulfate 325mg PO BID Renal: - Lasix 40mg IVP Daily- held as per Dr. Tomlin - Consult: Dr. Reynolds (nephrology) on board-->help appreciated BUN 82, Cr 2.5 on 04/04/17 BUN 75, Cr 2.3 on 04/03/17 BUN 60, Cr 2.2 on 04/02/17 BUN 65, Cr 2 on 04/01/17 BUN 62, Cr 1.7 on 03/31/17 - Off Nadir/arb/statin Endo: - Hgba1c: 7.2 - Lantus 10 units subq daily GI: - NG tube placed - Endoscopy (03/21): monillial esophagitis. Cells for cytology obtained. Erosive gastropahty. Normal examined duodenum-->negative cytology cells - Consult: Dr. Ag (GI) on board-->help appreciated - CT Abd/pelvis: no evidence of intraperitoneal hemorrhage or retroperitoneal hemorrhage - Ascites fluid cx: no growth - Intervential Radiology Consult, Dr. Franco Skaggs --> Help Appreciated - Paracentesis performed 03/27/17: removed 2L of dark yellow fluid; Per Dr. Ag's note the total PMN count on the fluid was 216, which is below the -- - t Threshold for SBP (Must be below 250). - LDH of peritoneal fluid 82 - Glucose of peritoneal fluid 124 - Albumin of peritoneal fluid 1.4 - Peritoneal Fluid: Clear; WBC- 309, RBS 1225, Total Cell Count-100, Neutrophil-70, Lymphocyte-25, Monocyte/Macrophage-5 - Fluid culture/smear of peritoneal fluid- no growth detected - Constipated for 7+ days - stated in previous note 04/03/17 - Abdominal xray: gas distension of stomach and small bowel loops, may be ileus or obstruction - Surgery consulted, Dr. Lara, help appreciated - As per surgery, no surgery at this time; recommend CT w/PO contrast, tap water enema, PT, and activity. - Stated in previous note 04/03/17 ID: - Continue 04/03/17- Primaxin 250mg IV Q12 - Urine culture (03/20/17): +ESBL - Repeat Urine Culture (03/27/17)- No growth - Sputum Culture: Few polymorphonuclear WBS, few epithelial cells, no organisms seen. - On Diflucan 200mg IV q daily (active since 03/22/17): Discontinued MSK: -Podiatry following DVT proph - SCDs, Heparin 5000u sc q12 GI proph - Protonix 40mg po daily allen for strict I/O's during acute illness Code status - DNR Disposition: Palliative Consult: Sally Sifuentes --> help appreciated - discussion with family of home hospice care Case discussed with Dr. Ana Grullon PGY-1 <Larry Perez - Last Filed: 04/07/17 19:19> CCU Objective - Vital Signs / Intake & Output Vital Signs (Last 4 hours): Vital Signs Temp Pulse Resp BP Pulse Ox 04/07/17 18:16 99 H 17 91/57 L 96 04/07/17 18:01 101 H 23 86/55 L 100 04/07/17 18:00 101 H 17 94 L 04/07/17 17:46 100 H 20 86/53 L 93 L 04/07/17 17:31 100 H 19 91/59 L 93 L 04/07/17 17:30 100 H 20 97 04/07/17 17:16 100 H 24 88/56 L 94 L 04/07/17 17:01 99 H 19 88/56 L 96 04/07/17 17:00 99 H 18 97 04/07/17 16:46 100 H 26 H 88/63 L 96 04/07/17 16:31 100 H 18 89/59 L 94 L 04/07/17 16:30 99 H 20 96 04/07/17 16:16 100 H 17 89/56 L 95 04/07/17 16:01 100 H 18 96/62 L 96 04/07/17 16:00 97.5 F L 100 H 15 96 04/07/17 15:46 101 H 17 97/63 L 97 04/07/17 15:31 103 H 21 97/61 L 100 04/07/17 15:30 103 H 19 96 Intake and Output (Last 8hrs): Intake & Output 04/07/17 04/07/17 04/07/17 06:59 14:59 22:59 Intake Total 562.4 660.3 99.4 Output Total 350 260 100 Balance 212.4 400.3 -0.6 Intake: IV 176 10 Intake, IV Amount 562.4 459.3 89.4 Right Distal Port PICC 17.6 2.2 Right PICC 224.8 137.1 9.4 Right PICC #2 320 320 80 Oral 0 25 Tube Feeding 0 0 Output: Urine 350 260 100 Urethral (Allen) 350 260 100 Other: # Bowel Movements 0 0 - Medications Active Medications: Active Medications Generic Name Dose Route Start Last Admin Trade Name Freq PRN Reason Stop Dose Admin Acetylcysteine 4 ml 03/30/17 16:30 04/07/17 15:58 Acetylcysteine 20% INH Not Given RQ8 [facility] Cilostazol 100 mg 03/18/17 18:00 04/07/17 17:53 Pletal PO 100 mg BID AWAIS Administration Collagenase 1 gm 03/21/17 10:00 04/07/17 09:55 Santyl TOP 1 applic DAILY A[facility]IS Administration Famotidine 20 mg 04/05/17 11:00 04/07/17 09:55 Pepcid PO 20 mg DAILY A[facility]IS Administration Imipenem/Cilastatin Sodium 250 100 mls @ 100 mls/hr 04/03/17 22:00 04/07/17 09:54 mg/ Sodium Chloride IVPB 100 mls/hr Q12 [facility] Administration Dextrose 500 mls @ 40 mls/hr 04/06/17 00:12 04/07/17 13:30 Dextrose 10% In Water IV 40 mls/hr .[id number] [facility] Administration Norepinephrine Bitartrate 8 mg 258 mls @ 7.74 mls/hr 04/06/17 01:15 04/07/17 16:00 / Dextrose IV 0 mcg/min .Q24H PRN 0 mls/hr TITRATE PER MD ORDER Titration Protocol 4 MCG/MIN Insulin Aspart 0 unit 04/04/17 18:00 04/07/17 17:54 Novolog SC Not Given Q6H [facility] Protocol Midodrine 2.5 mg 04/07/17 11:21 04/07/17 17:53 Proamatine PO 2.5 mg TID [facility] Administration Mupirocin 0 gm 03/18/17 18:00 04/07/17 17:54 Bactroban Ointment TOP 1 applic BID [facility] Administration Fluticasone/Salmeterol 1 puff 03/29/17 12:30 04/07/17 07:34 Advair Diskus 100/50 IH Not Given RQD AWA[facility] - Patient Studies Lab Studies: Lab Studies 04/07/17 04/07/17 04/07/17 Range/Units 17:32 11:23 05:24 POC Glucose (mg/dL) 244 H 187 H 136 H (65-110) mg/dL 04/06/17 Range/Units 23:30 POC Glucose (mg/dL) 131 H (65-110) mg/dL Laboratory Results - last 24 hr 04/06/17 04/07/17 04/07/17 23:30 05:24 11:23 POC Glucose (mg/dL) 131 H 136 H 187 H 04/07/17 17:32 POC Glucose (mg/dL) 244 H Critical Care Progress Note - Nutrition Nutrition: Nutrition Category Date Time Status NPO Diet [DIET] Diets 04/04/17 Lunch Active Attending/Attestation - Attestation I have personally seen and examined this patient.: Yes I have fully participated in the care of the patient.: Yes I have reviewed all pertinent clinical information: Yes Notes (Text): 04/07/17 19:19 agree with above note during rounds in the am pt was examined and clinical decision was made and discussed with icu team
[2017-04-07] MEDS: Collagenase 250 Units/gm Ointment(30 gm) TOP SCH (09:55)
[2017-04-07] MEDS: Cilostazol 100 mg Tab UD PO SCH ×2 (09:55→17:53)
--- NOTE | 2017-04-07 13:50 | CP.PCM.PN ---
Subjective - Date & Time of Evaluation Date of Evaluation: 04/07/17 Time of Evaluation: 13:37 - Subjective Subjective: Patient is confused, on BiPap in mild [id number] distress. Objective - Vital Signs/Intake and Output Vital Signs (last 24 hours): Temp Pulse Resp BP Pulse Ox 99.1 F 93 H 21 97/56 L 99 04/07/17 08:00 04/07/17 11:57 04/07/17 11:57 04/07/17 11:57 04/07/17 10:46 Intake and Output: 04/07/17 04/07/17 06:59 18:59 Intake Total 1046.1 483.6 Output Total 625 155 Balance 421.1 328.6 - Medications Medications: Current Medications Acetylcysteine (Acetylcysteine 20%) 4 ml INH RQ8 [facility] Last Admin: 04/07/17 07:35 Dose: 4 ml Cilostazol (Pletal) 100 mg PO BID [facility] Last Admin: 04/07/17 09:55 Dose: 100 mg Collagenase (Santyl) 1 gm TOP DAILY [facility] Last Admin: 04/07/17 09:55 Dose: 1 applic Famotidine (Pepcid) 20 mg PO DAILY [facility] Last Admin: 04/07/17 09:55 Dose: 20 mg Imipenem/Cilastatin Sodium 250 (mg/ Sodium Chloride) 100 mls @ 100 mls/hr IVPB Q12 [facility] Last Admin: 04/07/17 09:54 Dose: 100 mls/hr Dextrose (Dextrose 10% In Water) 500 mls @ 40 mls/hr IV .[id number] [facility] Last Admin: 04/07/17 01:37 Dose: 40 mls/hr Norepinephrine Bitartrate 8 mg (/ Dextrose) 258 mls @ 7.74 mls/hr IV .Q24H PRN ; Protocol; 4 MCG/MIN PRN Reason: TITRATE PER MD ORDER Last Admin: 04/07/17 11:57 Dose: 10 mcg/min, 19.35 mls/hr Insulin Aspart (Novolog) 0 unit SC Q6H AWAIS PRN Reason: Protocol Last Admin: 04/07/17 05:30 Dose: Not Given Midodrine (Proamatine) 2.5 mg PO TID [facility] Mupirocin (Bactroban Ointment) 0 gm TOP BID [facility] Last Admin: 04/07/17 09:56 Dose: 1 applic Fluticasone/Salmeterol (Advair Diskus 100/50) 1 puff IH RQD AWAIS Last Admin: 04/07/17 07:34 Dose: Not Given - Labs Labs: 04/05/17 06:46 04/05/17 06:46 PT 15.4 SECONDS (9.7-12.2) H 03/27/17 06:31 INR 1.4 03/27/17 06:31 APTT 32 SECONDS (21-34) 03/26/17 06:03 - Constitutional Appears: In Acute Distress, Chronically Ill - Head Exam Head Exam: ATRAUMATIC, NORMAL INSPECTION, NORMOCEPHALIC - Eye Exam Eye Exam: EOMI, Normal appearance, PERRL Pupil Exam: NORMAL ACCOMODATION, PERRL - ENT Exam ENT Exam: Mucous Membranes Moist - Neck Exam Neck Exam: Normal Inspection - Respiratory Exam Respiratory Exam: Accessory Muscle Use - Cardiovascular Exam Cardiovascular Exam: Tachycardia - GI/Abdominal Exam GI & Abdominal Exam: Diminished Bowel Sounds - Rectal Exam Rectal Exam: Deferred - Extremities Exam Extremities Exam: Pedal Edema - Back Exam Back Exam: NORMAL INSPECTION - Neurological Exam Neurological Exam: Alert, Altered Neuro motor strength exam: Left Upper Extremity: 2/1, Right Upper Extremity: 2/1 , Left Lower Extremity: 2/1, Right Lower Extremity: 2/1 - Psychiatric Exam Psychiatric exam: Flat Affect - Skin Skin Exam: Pallor Assessment and Plan - Assessment and Plan (Free Text) Assessment: Patient is S/P extubation yesterday. DNR and withdrawal of life support measures is on chart. Patient is on BiPap, looking ill. Patient is alert, but altered. Patient looks lethargic. Skin is pale. There is edema to upper and lower extremities. Urine tea color. BP 97/56, HR 93, O2Sat 93%. Prymaxin IV on board for E coli in urine infection. Hb 8.1, WBC 5.8. I was told by the nurse that family agreed with hospice and would like to get more information about the hospice care. I met at bed side with patient's and younger son who fly from [place]. The common impression was that patient's health is declining rapidly and that comfort level of care would be the most beneficial for patient. The meeting was joined later on by the patient's older son. The whole family advocates for increased comfort and promotion of peaceful . We discussed hospice option. prefers home hospice, while both sons prefer in house hospice. They are afraid that patient is not stable enough for transfer. I offered more information on both options and called Nicholas from [facility] . The nursing and Doctor Ana made aware of family's wishes Impression * Patient's condition has worsened over the last few days * Close family aware of decline and advocates for peaceful * Family prefers comfort care only Suggestion * Eval for admission to hospice care * Would stop all blood work and diagnostic studies
--- NOTE | 2017-04-07 19:42 | CP.PCM.PN ---
Subjective - Date & Time of Evaluation Date of Evaluation: 04/07/17 Time of Evaluation: 10:30 - Subjective Subjective: Family has decided on comfort care only. Patient was extubated 04/06/17. I spoke with Son Sebastian Freire [phone] who was at the bedside with patient's . NO exam took place. Clarence Jimenez D.O. Objective - Vital Signs/Intake and Output Vital Signs (last 24 hours): Temp Pulse Resp BP Pulse Ox 97.5 F L 99 H 17 91/57 L 96 04/07/17 16:00 04/07/17 18:16 04/07/17 18:16 04/07/17 18:16 04/07/17 18:16 Intake and Output: 04/07/17 04/08/17 18:59 06:59 Intake Total 759.7 Output Total 360 Balance 399.7 - Medications Medications: Current Medications Acetylcysteine (Acetylcysteine 20%) 4 ml INH RQ8 [facility] Last Admin: 04/07/17 15:58 Dose: Not Given Cilostazol (Pletal) 100 mg PO BID [facility] Last Admin: 04/07/17 17:53 Dose: 100 mg Collagenase (Santyl) 1 gm TOP DAILY [facility] Last Admin: 04/07/17 09:55 Dose: 1 applic Famotidine (Pepcid) 20 mg PO DAILY [facility] Last Admin: 04/07/17 09:55 Dose: 20 mg Imipenem/Cilastatin Sodium 250 (mg/ Sodium Chloride) 100 mls @ 100 mls/hr IVPB Q12 [facility] Last Admin: 04/07/17 09:54 Dose: 100 mls/hr Dextrose (Dextrose 10% In Water) 500 mls @ 40 mls/hr IV .[id number] [facility] Last Admin: 04/07/17 13:30 Dose: 40 mls/hr Norepinephrine Bitartrate 8 mg (/ Dextrose) 258 mls @ 7.74 mls/hr IV .Q24H PRN ; Protocol; 4 MCG/MIN PRN Reason: TITRATE PER MD ORDER Last Titration: 04/07/17 16:00 Dose: 0 mcg/min, 0 mls/hr Insulin Aspart (Novolog) 0 unit SC Q6H [facility] PRN Reason: Protocol Last Admin: 04/07/17 17:54 Dose: Not Given Midodrine (Proamatine) 2.5 mg PO TID [facility] Last Admin: 04/07/17 17:53 Dose: 2.5 mg Mupirocin (Bactroban Ointment) 0 gm TOP BID [facility] Last Admin: 04/07/17 17:54 Dose: 1 applic Fluticasone/Salmeterol (Advair Diskus 100/50) 1 puff IH RQD [facility] Last Admin: 04/07/17 07:34 Dose: Not Given - Labs Labs: 04/05/17 06:46 04/05/17 06:46 PT 15.4 SECONDS (9.7-12.2) H 03/27/17 06:31 INR 1.4 03/27/17 06:31 APTT 32 SECONDS (21-34) 03/26/17 06:03
[2017-04-08] MEDS: (Novolog) Insulin Aspart, Recombinant 100 u/ml 10 ml vial SC SCH ×2 (00:23→05:32)
[2017-04-08] MEDS: Acetylcysteine 20% Inhal Soln (4ml) INH SCH ×2 (00:25→07:44)
[2017-04-08] MEDS: Fluticasone-Salmeterol 100-50mcg Diskus IH SCH (07:44)
[2017-04-08] MEDS ORDERED: Albuterol-Ipratrop 3 mg / 0.5 (3 ml) UD INH SCH (08:00)
[2017-04-08 09:34] VITALS: TEMP 97.4
--- NOTE | 2017-04-08 09:49 | CP.PCM.PN ---
Subjective - Date & Time of Evaluation Date of Evaluation: 04/08/17 Time of Evaluation: 09:25 - Subjective Subjective: Patient is NO longer on the Levophed drip. I spoke with Palliative Care Nurse Delphine and [facility] Hiram Guerrero. Patient has been accepted into in-patient Hospice. Hiram to see patient and family around 12 PM today. Extensive conversation with Nephew Scott who then translated, about the nature of in-patient hospice as well as that morphine would only be given if patient appeared to be in any pain. Clarence Jimenez, [place].O. [phone] Objective - Vital Signs/Intake and Output Vital Signs (last 24 hours): Temp Pulse Resp BP Pulse Ox 97.4 F L 94 H 12 99/63 L 88 L 04/08/17 08:00 04/08/17 09:15 04/08/17 09:15 04/08/17 09:16 04/08/17 09:15 Intake and Output: 04/08/17 04/08/17 06:59 18:59 Intake Total 480 80 Output Total 235 10 Balance 245 70 - Medications Medications: Current Medications Acetylcysteine (Acetylcysteine 20%) 4 ml INH RQ8 [facility] Last Admin: 04/08/17 07:44 Dose: Not Given Albuterol/Ipratropium (Duoneb 3 Mg/0.5 Mg (3 Ml) Ud) 3 ml INH RQ8 [facility] Last Admin: 04/08/17 08:51 Dose: 3 ml Cilostazol (Pletal) 100 mg PO BID [facility] Last Admin: 04/07/17 17:53 Dose: 100 mg Collagenase (Santyl) 1 gm TOP DAILY [facility] Last Admin: 04/07/17 09:55 Dose: 1 applic Famotidine (Pepcid) 20 mg PO DAILY [facility] Last Admin: 04/07/17 09:55 Dose: 20 mg Imipenem/Cilastatin Sodium 250 (mg/ Sodium Chloride) 100 mls @ 100 mls/hr IVPB Q12 [facility] Last Admin: 04/07/17 22:36 Dose: Not Given Dextrose (Dextrose 10% In Water) 500 mls @ 40 mls/hr IV .[id number] [facility] Last Admin: 04/08/17 02:51 Dose: Not Given Norepinephrine Bitartrate 8 mg (/ Dextrose) 258 mls @ 7.74 mls/hr IV .Q24H PRN ; Protocol; 4 MCG/MIN PRN Reason: TITRATE PER MD ORDER Last Titration: 04/07/17 16:00 Dose: 0 mcg/min, 0 mls/hr Insulin Aspart (Novolog) 0 unit SC Q6H [facility] PRN Reason: Protocol Last Admin: 04/08/17 05:32 Dose: Not Given Midodrine (Proamatine) 2.5 mg PO TID [facility] Last Admin: 04/07/17 17:53 Dose: 2.5 mg Mupirocin (Bactroban Ointment) 0 gm TOP BID [facility] Last Admin: 04/07/17 17:54 Dose: 1 applic - Labs Labs: 04/05/17 06:46 04/05/17 06:46 PT 15.4 SECONDS (9.7-12.2) H 03/27/17 06:31 INR 1.4 03/27/17 06:31 APTT 32 SECONDS (21-34) 03/26/17 06:03
--- NOTE | 2017-04-08 09:53 | CP.PCM.PN ---
Subjective - Date & Time of Evaluation Date of Evaluation: 04/08/17 Time of Evaluation: 09:50 - Subjective Subjective: 71 y/o male seen at bedside with attending Dr. Barnes for evaluation of B/L TMA sites. Patient's son is present at this time in ICU. Patient is alert and awake. Pt denies of any acute overnight events. Pt denies of any pain or complications to bilateral LE. Pt denies of any recent F/N/V/C/SOB. Objective - Vital Signs/Intake and Output Vital Signs (last 24 hours): Temp Pulse Resp BP Pulse Ox 97.4 F L 94 H 12 99/63 L 88 L 04/08/17 08:00 04/08/17 09:15 04/08/17 09:15 04/08/17 09:16 04/08/17 09:15 Intake and Output: 04/08/17 04/08/17 06:59 18:59 Intake Total 480 80 Output Total 235 10 Balance 245 70 - Medications Medications: Current Medications Acetylcysteine (Acetylcysteine 20%) 4 ml INH RQ8 AWAIS Last Admin: 04/08/17 07:44 Dose: Not Given Albuterol/Ipratropium (Duoneb 3 Mg/0.5 Mg (3 Ml) Ud) 3 ml INH RQ8 AWAIS Last Admin: 04/08/17 08:51 Dose: 3 ml Cilostazol (Pletal) 100 mg PO BID [facility] Last Admin: 04/07/17 17:53 Dose: 100 mg Collagenase (Santyl) 1 gm TOP DAILY AWAIS Last Admin: 04/07/17 09:55 Dose: 1 applic Famotidine (Pepcid) 20 mg PO DAILY AWAIS Last Admin: 04/07/17 09:55 Dose: 20 mg Imipenem/Cilastatin Sodium 250 (mg/ Sodium Chloride) 100 mls @ 100 mls/hr IVPB Q12 AWAIS Last Admin: 04/07/17 22:36 Dose: Not Given Dextrose (Dextrose 10% In Water) 500 mls @ 40 mls/hr IV .[id number] [facility] Last Admin: 04/08/17 02:51 Dose: Not Given Norepinephrine Bitartrate 8 mg (/ Dextrose) 258 mls @ 7.74 mls/hr IV .Q24H PRN ; Protocol; 4 MCG/MIN PRN Reason: TITRATE PER MD ORDER Last Titration: 04/07/17 16:00 Dose: 0 mcg/min, 0 mls/hr Insulin Aspart (Novolog) 0 unit SC Q6H [facility] PRN Reason: Protocol Last Admin: 04/08/17 05:32 Dose: Not Given Midodrine (Proamatine) 2.5 mg PO TID [facility] Last Admin: 04/07/17 17:53 Dose: 2.5 mg Mupirocin (Bactroban Ointment) 0 gm TOP BID [facility] Last Admin: 04/07/17 17:54 Dose: 1 applic - Labs Labs: 04/05/17 06:46 04/05/17 06:46 PT 15.4 SECONDS (9.7-12.2) H 03/27/17 06:31 INR 1.4 03/27/17 06:31 APTT 32 SECONDS (21-34) 03/26/17 06:03 - Constitutional Appears: Well, Non-toxic, No Acute Distress - Extremities Exam Additional comments: VASC: DP/PT pulses are non-palpable, CFT > 5sec to dorsal and plantar flaps, temperature gradient is cool to cool proximal to distal, no edema noted DERM: Right TMA site with eschar at medial aspect of incision and hyerpkeratotic tissue at lateral portion, no active drainage, no probe to bone, no malodor. Left TMA site with no dehiscence, no active drainage, skin edges with minimal hyperkeratotic tissue. NEURO: protective sensation grossly diminished ORTHO: TMA noted bilaterally - Neurological Exam Neurological Exam: Alert, Awake Assessment and Plan - Assessment and Plan (Free Text) Assessment: 71 y/o male seen at bedside with B/L TMA Plan: Patient evaluated and chart reviewed Patient discussed in details with attending Dr. Barnes labs and vitals reviewed; afebrile, WBC @ 5.8 (04/05) B/L TMA dressed with dry sterile dressing, 4x4 gauze, and kerlix no surgical intervention planned at this time. will continue to follow while in hospital.
[2017-04-08] MEDS: Collagenase 250 Units/gm Ointment(30 gm) TOP SCH (10:30)
--- NOTE | 2017-04-08 10:43 | CP.CCUPN ---
CCU Subjective - Physician Review Subjective (Free Text): 04/07/17 14:29 Patient seen and examined at bedside in the AM. Patient is alert and oriented to person. Patient is able to slightly converse. Per patient's the patient is speaking with her about different things they did in the past in their life. 04/08/17 10:40 04/08/17 10:41 CCU Objective - Vital Signs / Intake & Output Vital Signs (Last 4 hours): Vital Signs Temp Pulse Resp BP Pulse Ox 04/08/17 09:16 99/63 L 04/08/17 09:15 94 H 12 88 L 04/08/17 09:01 92 H 13 96/63 L 90 L 04/08/17 09:00 95 H 13 90 L 04/08/17 08:46 95 H 12 99/65 L 90 L 04/08/17 08:31 94 H 14 100/63 91 L 04/08/17 08:30 94 H 13 88 L 04/08/17 08:16 95 H 13 98/67 L 92 L 04/08/17 08:07 96 H 14 106/67 90 L 04/08/17 08:00 97.4 F L 97 H 12 04/08/17 07:46 94 H 15 98/60 L 81 L 04/08/17 07:31 94 H 17 88/61 L 76 L 04/08/17 07:30 95 H 21 79 L 04/08/17 07:16 94 H 14 99/61 L 92 L 04/08/17 07:01 96 H 18 98/63 L 94 L 04/08/17 07:00 96 H 22 90 L Intake and Output (Last 8hrs): Intake & Output 04/07/17 04/08/17 04/08/17 22:59 06:59 14:59 Intake Total 259.4 320 80 Output Total 165 170 10 Balance 94.4 150 70 Intake: IV 10 Intake, IV Amount 249.4 320 80 Right PICC 9.4 Right PICC #2 240 320 80 Oral 0 0 0 Tube Feeding 0 Output: Urine 165 170 10 Urethral (Flores) 165 170 10 Other: # Bowel Movements 0 0 1 - Physical Exam Head: Positive for: Atraumatic, Normocephalic Pupils: Positive for: PERRL Extroacular Muscles: Positive for: EOMI Conjunctiva: Positive for: Normal. Negative for: Injected, Icteric Mouth: Positive for: Moist Mucous Membranes Nose (External): Positive for: Other (NGT in place) Nose (Internal): Positive for: Normal Inspection Neck: Positive for: Normal Range of Motion Respiratory/Chest: Positive for: Respiratory Distress (patient on bipap), Rhonchi. Negative for: Clear to Auscultation, Accessory Muscle Use, Wheezes Cardiovascular: Positive for: Murmurs (L sternal border), Normal S1, S2, Irregular Rhythm, Tachycardic. Negative for: Regular Rate and Rhythm Abdomen: Positive for: Normal Bowel Sounds. Negative for: Tenderness, Distention Upper Extremity: Positive for: Normal Inspection, Edema, Other (R arm PICC line in place) Lower Extremity: Positive for: Edema (+3 to scrotum), Other (b/l foot dressings c/d/i). Negative for: Normal Inspection Neurological: Positive for: GCS=15, CN II-XII Intact, Speech Normal Skin: Positive for: Warm, Dry, Normal Color Psychiatric: Positive for: Alert. Negative for: Oriented x 3 - Medications Active Medications: Active Medications Generic Name Dose Route Start Last Admin Trade Name Freq PRN Reason Stop Dose Admin Acetylcysteine 4 ml 03/30/17 16:30 04/08/17 07:44 Acetylcysteine 20% INH Not Given RQ8 AWAIS Albuterol/Ipratropium 3 ml 04/08/17 08:00 04/08/17 08:51 Duoneb 3 Mg/0.5 Mg (3 Ml) Ud INH 3 ml RQ8 AWAIS Administration Collagenase 1 gm 03/21/17 10:00 04/08/17 10:30 Santyl TOP 1 applic DAILY AWAIS Administration Famotidine 20 mg 04/05/17 11:00 04/08/17 10:35 Pepcid PO 20 mg DAILY AWAIS Administration Mupirocin 0 gm 03/18/17 18:00 04/08/17 10:30 Bactroban Ointment TOP 1 applic BID AWAIS Administration - Patient Studies Lab Studies: Lab Studies 04/08/17 04/08/17 04/07/17 Range/Units 05:05 00:04 17:32 POC Glucose (mg/dL) 112 H 226 H 244 H (65-110) mg/dL 04/07/17 Range/Units 11:23 POC Glucose (mg/dL) 187 H (65-110) mg/dL Laboratory Results - last 24 hr 04/07/17 04/07/17 04/08/17 11:23 17:32 00:04 POC Glucose (mg/dL) 187 H 244 H 226 H 04/08/17 05:05 POC Glucose (mg/dL) 112 H Fingerstick Blood Sugar Results: 147 Review of Systems - Review of Systems Systems not reviewed;Unavailable: Altered Mental Status Critical Care Progress Note - Nutrition Nutrition: Nutrition Category Date Time Status NPO Diet [DIET] Diets 04/04/17 Lunch Active Assessment/Plan - Assessment and Plan (Free Text) Assessment: 71 M PMHx of CAD, CABG, AFib, DM w/ b/l toe amp, PVD, HTN, chronic anemia admitted for acute on chronic anemia, guaic positive and hypotension. Plan: Neuro: - Patient was extubated 04/06/17 - Patient is alert - Patient is oriented to person but not time and place. DVT proph - SCDs GI proph - Pepcid 20mg PO daily Code status - DNR Disposition: Palliative Consult: Sally Sifuentes --> help appreciated - Patient to be transferred to in patient hospice care Case discussed with Dr. Randy Grullon PGY-1
[2017-04-08 11:26] VITALS: BP 99/66; PULSE 95; RESP 13; O2SAT 90
--- NOTE | 2017-04-08 20:57 | CP.PCM.DIS ---
Provider - Provider Date of Admission: 03/18/17 12:52 Attending physician: Daniel Ambrocio MD Hospital Course - Lab Results Lab Results: Micro Results 04/04/17 15:00 Naris MRSA Culture (Admit) - Final MRSA NOT DETECTED 03/31/17 14:00 Naris MRSA Culture - Final MRSA NOT DETECTED 03/27/17 Unknown Ascitic Fluid Gram Stain - Final 03/27/17 Unknown Ascitic Fluid Body Fluid Culture - Final No growth. 03/28/17 Unknown Trachasp Gram Stain - Final 03/28/17 Unknown Trachasp Sputum Culture - Final NORMAL ORAL OCTAVIA 03/27/17 Unknown Urine,Catheterized Urine Culture - Final No Growth (<1,000 CFU/ML) 03/20/17 04:52 Urine,Clean Catch Urine Culture - Final Escherichia Coli 03/20/17 Unknown Nose MRSA Culture - Final MRSA NOT DETECTED Most Recent Lab Values WBC 5.8 K/uL (4.8-10.8) 04/05/17 06:46 RBC 2.93 Mil/uL (4.40-5.90) L 04/05/17 06:46 Hgb 8.1 g/dL (12.0-18.0) L 04/05/17 06:46 Hct 25.0 % (35.0-51.0) L 04/05/17 06:46 MCV 85.2 fL (80.0-94.0) 04/05/17 06:46 MCH 27.7 pg (27.0-31.0) 04/05/17 06:46 MCHC 32.5 g/dL (33.0-37.0) L 04/05/17 06:46 RDW 18.6 % (11.5-14.5) H 04/05/17 06:46 Plt Count 273 K/uL (130-400) 04/05/17 06:46 MPV 8.8 fL (7.2-11.7) 04/05/17 06:46 Neut % (Auto) 80.1 % (50.0-75.0) H 04/04/17 08:34 Lymph % (Auto) 12.9 % (20.0-40.0) L 04/04/17 08:34 [place] % (Auto) 5.7 % (0.0-10.0) 04/04/17 08:34 Eos % (Auto) 0.5 % (0.0-4.0) 04/04/17 08:34 Baso % (Auto) 0.8 % (0.0-2.0) 04/04/17 08:34 Neut # 4.9 K/uL (1.8-7.0) 04/04/17 08:34 Lymph # 0.8 K/uL (1.0-4.3) L 04/04/17 08:34 [place] # 0.3 K/uL (0.0-0.8) 04/04/17 08:34 Eos # 0.0 K/uL (0.0-0.7) 04/04/17 08:34 Baso # 0.0 K/uL (0.0-0.2) 04/04/17 08:34 Neutrophils % (Manual) 79 % (50-75) H 03/28/17 06:22 Lymphocytes % (Manual) 13 % (20-40) L 03/28/17 06:22 Monocytes % (Manual) 6 % (0-10) 03/28/17 06:22 Eosinophils % (Manual) 2 % (0-4) 03/28/17 06:22 Basophils % (Manual) 1 % (0-2) 03/21/17 06:20 Toxic Granulation Present 03/22/17 06:17 Platelet Estimate Normal (NORMAL) 03/28/17 06:22 Large Platelets Present 03/28/17 06:22 Hypochromasia (manual) Slight 03/22/17 06:17 Poikilocytosis (manual Slight 03/28/17 06:22 Anisocytosis (manual) Slight 03/28/17 06:22 Microcytosis (manual) Slight 03/20/17 07:02 Macrocytosis (manual) Slight 03/20/17 07:02 Spherocytes Slight 03/22/17 06:17 Target Cells Slight 03/28/17 06:22 Tear Drop Cells Slight 03/22/17 06:17 Ovalocytes Slight 03/28/17 06:22 [place] Cells Slight 03/22/17 06:17 Schistocytes Slight 03/22/17 06:17 Haptoglobin 148 mg/dL (43-212) 03/19/17 17:38 PT 15.4 SECONDS (9.7-12.2) H 03/27/17 06:31 INR 1.4 03/27/17 06:31 APTT 32 SECONDS (21-34) 03/26/17 06:03 Puncture Site R rad 04/05/17 03:05 pCO2 23 mm/Hg (35-45) L 04/05/17 03:05 pO2 78 mm/Hg (80-100) L 04/05/17 03:05 HCO3 18.2 mmol/L (21-28) L 04/05/17 03:05 ABG pH 7.42 (7.35-7.45) 04/05/17 03:05 ABG Total CO2 15.6 mmol/L (22-28) L 04/05/17 03:05 ABG O2 Saturation 98.8 % (95-98) H 04/05/17 03:05 ABG Base Excess -8.6 mmol/L (-2.0-3.0) L 04/05/17 03:05 ABG Hemoglobin 6.9 g/dL (11.7-17.4) L 04/05/17 03:05 ABG Carboxyhemoglobin 1.2 % (0.5-1.5) 04/05/17 03:05 POC ABG HHb (Measured) 1.2 % (0.0-5.0) 04/05/17 03:05 ABG Methemoglobin 1.1 % (0.0-3.0) 04/05/17 03:05 Cipriano Test Pos 04/05/17 03:05 ABG Potassium 5.5 mmol/L (3.6-5.2) H 04/04/17 12:58 A-a O2 Difference 321.0 mm/Hg 04/05/17 03:05 Respiratory Index 4.1 04/05/17 03:05 Hgb O2 Saturation 96.4 % (95.0-98.0) 04/05/17 03:05 Sodium 134.0 mmol/l (132-148) 04/04/17 12:58 Chloride 103.0 mmol/L (98-107) 04/04/17 12:58 Glucose 128 mg/dl (75-110) H 04/04/17 12:58 Lactate 2.5 mmol/L (0.7-2.1) H 04/04/17 12:58 Liter Flow 3.0 03/25/17 10:45 Mechanical Rate 16 04/05/17 03:05 FiO2 60.0 % 04/05/17 03:05 Tidal Volume 500 04/05/17 03:05 PEEP 5 04/05/17 03:05 Sodium 124 mmol/L (132-148) L 04/05/17 06:46 Potassium 4.0 mmol/L (3.6-5.2) 04/05/17 06:46 Chloride 95 mmol/L (98-107) L 04/05/17 06:46 Carbon Dioxide 19 mmol/L (22-30) L 04/05/17 06:46 Anion Gap 14 (10-20) 04/05/17 06:46 BUN 76 mg/dL (9-20) H 04/05/17 06:46 Creatinine 2.2 MG/DL (0.8-1.5) H 04/05/17 06:46 Est GFR ( Amer) 36 04/05/17 06:46 Est GFR (Non-Af Amer) 30 04/05/17 06:46 POC Glucose (mg/dL) 112 mg/dL (65-110) H 04/08/17 05:05 Random Glucose 389 mg/dL (75-110) H 04/05/17 06:46 Hemoglobin A1c 7.2 % (4.2-6.5) H 03/20/17 07:02 Calcium 7.4 mg/dl (8.6-10.4) L 04/05/17 06:46 Phosphorus 4.4 mg/dL (2.5-4.5) 04/05/17 06:46 Magnesium 2.0 mg/dL (1.6-2.3) 04/05/17 06:46 Iron 36 ug/dL (49-181) L 03/18/17 19:49 TIBC 285 ug/dL (250-450) 03/18/17 19:49 % Saturation 14 (20-55) L 03/18/17 19:56 Transferrin 211.67 mg/dL (206-381) 03/18/17 19:49 Ferritin 48.5 ng/mL 03/18/17 20:13 Total Bilirubin 1.1 mg/dL (0.2-1.3) 04/05/17 06:46 AST 26 U/L (17-59) 04/05/17 06:46 ALT 14 U/L (21-72) L D 04/05/17 06:46 Alkaline Phosphatase 88 U/L (38-126) 04/05/17 06:46 Total Creatine Kinase 33 U/L (55-170) L 03/19/17 07:05 CK-MB (Mass) 1.05 ng/mL (0.0-3.38) 03/19/17 07:05 Troponin I 0.0280 ng/mL (0.00-0.120) 03/21/17 06:22 Troponin I, Quant 0.0390 ng/mL (0.00-0.120) 03/19/17 07:05 NT-Pro-B Natriuret Pep 09479 pg/mL (0-900) H 03/24/17 06:09 Total Protein 5.8 g/dL (6.3-8.3) L 04/05/17 06:46 Total Protein (PEP) 6.7 g/dL (6.1-8.1) 03/19/17 17:38 Albumin 2.4 g/dL (3.5-5.0) L 04/05/17 06:46 Albumin (PEP) 2.9 g/dL (3.8-4.8) L 03/19/17 17:38 Globulin 3.4 gm/dL (2.2-3.9) 04/05/17 06:46 Albumin/Globulin Ratio 0.7 (1.0-2.1) L 04/05/17 06:46 Andwp-0-Tahrromez 0.4 g/dL (0.2-0.3) H 03/19/17 17:38 Tyhhc-8-Lgtntasmz 0.7 g/dL (0.5-0.9) 03/19/17 17:38 Ixlr-4-Cpeivmhu 0.4 g/dL (0.4-0.6) 03/19/17 17:38 Aoyu-5-Qlqqdxgb 0.4 g/dL (0.2-0.5) 03/19/17 17:38 Gamma Globulins 1.8 g/dL (0.8-1.7) H 03/19/17 17:38 Abnorm Protein Band 1 TEST NOT PERFORMED 03/19/17 17:38 Abnorm Protein Band 2 TEST NOT PERFORMED 03/19/17 17:38 Abnorm Protein Band 3 TEST NOT PERFORMED 03/19/17 17:38 Arterial Blood Potassium 5.5 mmol/L (3.6-5.2) H 04/04/17 12:58 Urine Color Yellow (YELLOW) 03/29/17 06:35 Urine Clarity Hazy (Clear) 03/29/17 06:35 Urine pH 5.0 (5.0-8.0) 03/29/17 06:35 Ur Specific [place] 1.010 (1.003-1.030) 03/29/17 06:35 Urine Protein Negative mg/dL (NEGATIVE) 03/29/17 06:35 Urine Glucose (UA) 1+ mg/dL (Normal) H 03/29/17 06:35 Urine Ketones Trace mg/dL (NEGATIVE) 03/29/17 06:35 Urine Blood 3+ (NEGATIVE) H 03/29/17 06:35 Urine Nitrate Negative (NEGATIVE) 03/29/17 06:35 Urine Bilirubin Negative (NEGATIVE) 03/29/17 06:35 Urine Urobilinogen 2.0 mg/dL (0.2-1.0) 03/29/17 06:35 Ur Leukocyte Esterase Trace [place]/uL (Negative) 03/29/17 06:35 Urine WBC (Auto) 12 /hpf (0-5) H 03/29/17 06:35 Urine RBC (Auto) 513 /hpf (0-3) H 03/29/17 06:35 Ur Squamous Epith Cells < 1 /hpf (0-5) 03/29/17 06:35 Hyaline Casts 6-10 /lpf (0-2) H 03/29/17 06:35 Ur Random Sodium 54 mmol/L 03/20/17 08:05 Fluid Source Peritoneal/ascites 03/27/17 13:51 Fluid Appearance Clear (CLEAR) 03/27/17 13:51 Fluid WBC 309.0 /mm3 (0.0-300.0) H 03/27/17 13:51 Fluid RBC 1335.0 /mm3 (0.0-0.0) H 03/27/17 13:51 Fluid Tot Cell Count 100 (0-0) H 03/27/17 13:51 Fluid Neutrophils 70.0 % (0-0) H 03/27/17 13:51 Fluid Lymphocytes 25.0 % (0-0) H 03/27/17 13:51 Fld Monocyte/Macrophag 5 % (0-0) H 03/27/17 13:51 Fluid Albumin 1.4 g/dL 03/27/17 13:51 Fluid Comment TEST NOT PERFORMED 03/27/17 13:51 Peritoneal LDH 82 U/L (<63) H 03/27/17 13:51 Peritoneal Glucose 124 mg/dL 03/27/17 13:51 Stool Occult Blood Positive (NEGATIVE) H 03/19/17 17:18 ELDA & SPEP Interp See note 03/19/17 17:38 Hepatitis A IgM Ab Nonreactive (Nonreactive) 03/25/17 07:45 Hepatitis A Ab Total Reactive (Nonreactive) H 03/25/17 07:45 Hep Bs Antigen Negative (NEGATIVE) 03/25/17 06:16 Hep Bs Antibody Negative (NEGATIVE) 03/25/17 06:16 Hep B Core IgM Ab Negative (NEGATIVE) 03/25/17 06:16 Hepatitis C Antibody Negative (NEGATIVE) 03/25/17 06:16 Blood Type O POSITIVE 03/26/17 12:41 Antibody Screen Negative 03/26/17 12:41 Discharge Exam - Head Exam Head Exam: ATRAUMATIC, NORMAL INSPECTION, NORMOCEPHALIC Discharge Plan - Follow Up Plan Condition: FAIR Disposition: HOSPICE - MEDICAL FACILITY
== END 2017-04-08 15:41 | disposition hospice, inpatient (51) | DRG 291 ==
LOC: C.ER 10:22 → C.9E 12:52 → C.6T 14:51 → C.9I 03-20 13:24 → C.5T 03-31 12:48 → C.9I 04-04 11:37
PROVIDERS: ADMIT Hospitalist; ATTEND Internal Medicine
PROC: 30233N1 Transfusion of Nonautologous Red Blood Cells into Peripheral Vein, Percutaneous Approach (ICD-10-PCS; 2017-03-20)
PROC: 0DB58ZX Excision of Esophagus, Via Natural or Artificial Opening Endoscopic, Diagnostic (ICD-10-PCS; principal; 2017-03-21 18:01)
PROC: 0W9G3ZX Drainage of Peritoneal Cavity, Percutaneous Approach, Diagnostic (ICD-10-PCS; 2017-03-27)
PROC: BW40ZZZ Ultrasonography of Abdomen (ICD-10-PCS; 2017-03-27)
PROC: 0BH17EZ Insertion of Endotracheal Airway into Trachea, Via Natural or Artificial Opening (ICD-10-PCS; 2017-04-04)
PROC: 5A1945Z Respiratory Ventilation, 24-96 Consecutive Hours (ICD-10-PCS; 2017-04-04)
PROC: 5A12012 Performance of Cardiac Output, Single, Manual (ICD-10-PCS; 2017-04-04)
DX: I13.0 Hypertensive heart and chronic kidney disease with heart failure and stage 1 through stage 4 chronic kidney disease, or unspecified chronic kidney disease (principal); I50.23 Acute on chronic systolic (congestive) heart failure; J96.00 Acute respiratory failure, unspecified whether with hypoxia or hypercapnia; N17.9 Acute kidney failure, unspecified; J18.9 Pneumonia, unspecified organism; B37.81 Candidal esophagitis; E11.52 Type 2 diabetes mellitus with diabetic peripheral angiopathy with gangrene; R18.8 Other ascites; E11.22 Type 2 diabetes mellitus with diabetic chronic kidney disease; I46.9 Cardiac arrest, cause unspecified; D62 Acute posthemorrhagic anemia; N39.0 Urinary tract infection, site not specified; K92.1 Melena; E11.621 Type 2 diabetes mellitus with foot ulcer; N18.3 Chronic kidney disease, stage 3 (moderate); E11.65 Type 2 diabetes mellitus with hyperglycemia; I48.91 Unspecified atrial fibrillation; E86.0 Dehydration; B96.20 Unspecified Escherichia coli [E. coli] as the cause of diseases classified elsewhere; D50.9 Iron deficiency anemia, unspecified; R05 Cough; J20.9 Acute bronchitis, unspecified; I25.10 Atherosclerotic heart disease of native coronary artery without angina pectoris; I25.5 Ischemic cardiomyopathy; I08.0 Rheumatic disorders of both mitral and aortic valves; L97.529 Non-pressure chronic ulcer of other part of left foot with unspecified severity; Z16.12 Extended spectrum beta lactamase (ESBL) resistance; E78.5 Hyperlipidemia, unspecified; F41.9 Anxiety disorder, unspecified; Z66 Do not resuscitate; Z51.5 Encounter for palliative care; K59.00 Constipation, unspecified; Z79.4 Long term (current) use of insulin; Z89.422 Acquired absence of other left toe(s); Z89.421 Acquired absence of other right toe(s); Z95.1 Presence of aortocoronary bypass graft; Z87.891 Personal history of nicotine dependence

== ENCOUNTER 2017-04-08 15:30 | Inpatient (IN) | payer OTHER ==
[2017-04-09 01:44] VITALS: O2SAT 97
--- NOTE | 2017-04-09 20:34 | CP.PCM.HP ---
History of Present Illness - History of Present Illness History of Present Illness: Patient was seen at 6:30 PM ICU Bed #10 04/09/17 He is resting comfortably and wants to his . Scott and Meli, who were present will be making arrangments through [facility] Registr[facility] office so that this wish of the patient can be realized. Rx provided to Scott and Meli explaining that patient was of sound mind and with cognitive abilities and that he did not have any infectious process at the moment. Extensive conversation with Nephew Scott and Scott's Meli Hiram from [facility] contacted me and he will be making arrangements for home hospital bed and oxygen. Patient will be discharged 04/10/17 to continue Hospice at home. Clarence Jimenez D.O. Past Patient History - Infectious Disease Hx of Infectious Diseases: None - Past Medical History & Family History Past Medical History?: Yes - Past Social History Smoking Status: Unknown If Ever Smoked - CARDIAC Hx Cardiac Disorders: Yes (CAD, CABG, CHF (EF 30%)) Hx Atrial Fibrillation: Yes Hx Congestive Heart Failure: Yes Hx Hypercholesterolemia: Yes Hx Hypertension: Yes Hx Mitral Valve Prolapse: Yes Hx Peripheral Edema: Yes - PULMONARY Hx Respiratory Disorders: No - NEUROLOGICAL Hx Neurological Disorder: No - HEENT Hx HEENT Problems: No - RENAL Hx Chronic Kidney Disease: No - ENDOCRINE/METABOLIC Hx Diabetes Mellitus Type 2: Yes - HEMATOLOGICAL/ONCOLOGICAL Hx Blood Disorders: No Hx Anemia: Yes - INTEGUMENTARY Hx Dermatological Problems: Yes Hx Cellulitis: Yes Other/Comment: gangrene left foot - MUSCULOSKELETAL/RHEUMATOLOGICAL Hx Falls: No - GASTROINTESTINAL Hx Gall Bladder Disease: Yes - GENITOURINARY/GYNECOLOGICAL Hx Genitourinary Disorders: No Hx Urinary Tract Infection: Yes (Admitted earlier this year for UTI) - PSYCHIATRIC Hx Substance Use: No - SURGICAL HISTORY Hx Surgeries: Yes Hx Amputation: Yes (left foot toes 2016; right foot toes 2015) Hx Coronary Artery Bypass Graft: Yes (2009) - ANESTHESIA Hx Anesthesia: Yes Hx Anesthesia Reactions: No Hx Malignant Hyperthermia: No Meds Allergies/Adverse Reactions: Allergies Allergy/AdvReac Type Severity Reaction Status Date / Time No Known Allergies Allergy Verified 03/18/17 10:39 Results - Vital Signs Recent Vital Signs: Last Vital Signs Temp 97.3 F L 04/09/17 16:00 Pulse 93 H 04/09/17 16:00 Resp 20 04/09/17 16:00 BP 92/53 L 04/09/17 16:00 Pulse Ox 97 04/08/17 16:49 - Labs Labs: Laboratory Results - last 24 hr 04/09/17 18:06 POC Glucose (mg/dL) 164 H
[2017-04-10 06:29] VITALS: BP 101/65; PULSE 86; RESP 21; TEMP 97.6
--- NOTE | 2017-04-10 20:07 | CP.PCM.DIS ---
Provider - Provider Date of Admission: 04/08/17 15:30 Attending physician: Clarence Jimenez MD Consults: Merged With [facility] Time Spent in preparation of Discharge (in minutes): 40 Hospital Course - Lab Results Lab Results: Most Recent Lab Values POC Glucose (mg/dL) 164 mg/dL (65-110) H 04/09/17 18:06 - Hospital Course Hospital Course: Merged With [facility] Hiram has set up home hospice. Rx provided for Percocet 5/325 mg 1 tab PO Q4H PRN Pain Advair 100/50 mcg 1 puff INH 1x/day Janumet 50/1,000 mg PO 1x/day Instructed also to provide the following care for patients wounds: 1). Bilateral Feet dried eschars at amputation site stumps: medihoney 1x/day 2). Sacreal Stage II Ulcer: Aloe Vest 1x/day Discharge Plan - Follow Up Plan Condition: GOOD Disposition: HOSPICE - HOME Instructions: Heart Failure (DC), Heart Failure (GEN), Pacemaker (DC), Pacemaker (GEN), Pulmonary Edema (DC), Pulmonary Edema (GEN), Acute Kidney Injury (DC), Ascites (DC), Ascites (GEN), Fluid Restriction (DC)
== END 2017-04-10 16:44 | disposition hospice, home (50) | DRG 594 ==
LOC: C.9I 15:30 → C.5T 22:20 → C.9I 04-09 02:38
PROVIDERS: ADMIT Family Medicine; ATTEND Family Medicine
DX: L89.152 Pressure ulcer of sacral region, stage 2 (principal); I11.0 Hypertensive heart disease with heart failure; I50.9 Heart failure, unspecified; Z89.431 Acquired absence of right foot; Z89.432 Acquired absence of left foot; Z51.5 Encounter for palliative care; I25.10 Atherosclerotic heart disease of native coronary artery without angina pectoris; Z95.1 Presence of aortocoronary bypass graft; E78.00 Pure hypercholesterolemia, unspecified